=== PATIENT | male | born 1960 | race Caucasian/White ===

== ENCOUNTER → 2023-01-03 | Outpatient (CLI) | payer OTHER, SELFPAY ==
--- NOTE | 2023-01-03 18:21 | CT_ITS ---
PROCEDURE: CT LEFT KNEE WITHOUT CONTRAST REASON FOR EXAM: Male, 62 years old. Preoperative planning for the MakoPlasty Robotic knee surgery. Knee pain. TECHNIQUE: Transaxial CT of the hip, knee and ankle were obtained. Coronal and sagittal reconstruction images of the knee were provided. Individualized dose optimization techniques were used for this CT. COMPARISON: None. FINDINGS: Standard protocol for the preoperative planning for the MakoPlasty robotic knee surgery was performed. Osteopenia. Left total hip arthroplasty in anatomic alignment without complications. Moderate to marked tricompartmental arthrosis of the left knee. Moderate arthrosis of the left tibiotalar joint, subtalar joint and midfoot. CT/Extremity Lower without Contra IMPRESSION: Preoperative MakoPlasty Robotic knee surgical CT evaluation with findings as described above. Electronically Signed: Saw Steele MD at 11:16 EDT ,
== END | disposition home or self-care (01) ==
PROVIDERS: PCP Student in an Organized Health Care Education/Training Program; Visit Provider Orthopaedic Surgery
DX: M17.12 Unilateral primary osteoarthritis, left knee (principal); M21.062 Valgus deformity, not elsewhere classified, left knee
CPT/HCPCS: 73700

== ENCOUNTER → 2023-08-05 | Outpatient (CLI) | payer OTHER, SELFPAY ==
--- NOTE | 2023-08-05 15:28 | CT_ITS ---
CT RIGHT LOWER EXTREMITY WITH 3-D IMAGING CLINICAL INDICATION: RIGHT KNEE FOR AS1 PROTOCOL TECHNIQUE: Axial CT images of the RIGHT lower extremity was performed without IV contrast material. Coronal and sagittal reformats were provided. RADIATION DOSAGE (If Supplied By Facility): CTDIvol = ( 18.13 ) mGy, DLP = ( 1479.78 ) mGycm COMPARISON: No relevant prior comparison study available FINDINGS: Bones: Imaging of the hip joint was obtained. The patient is status post right total hip replacement. There is good alignment. No acute abnormality is seen. Imaging of the knee joint was obtained. There is a marked degree of joint space narrowing involving the medial and lateral compartments of the knee joint with degenerative spur formation of the distal femoral condyles and tibial plateau. Moderate degree of joint space narrowing of the patellofemoral joint with marked degree of a bony spur formation. Subchondral cystic changes are seen in the distal femur and proximal tibia. Soft Tissues: Small to moderate size joint effusion. Imaging of the ankle joint was obtained. There is evidence of prior screw fixation of the medial malleolus. The superficial soft tissues are unremarkable without evidence of edema, hematoma, or foreign body. CT/Extremity Lower without Contra IMPRESSION: Marked degree of osteoarthritis of the hip joint as described with small to moderate size joint effusion. Electronically Signed: Salazar York MD at 16:01 EST ,
== END | disposition home or self-care (01) ==
PROVIDERS: PCP Student in an Organized Health Care Education/Training Program; Referring Provider Orthopaedic Surgery; Visit Provider Orthopaedic Surgery
DX: M17.11 Unilateral primary osteoarthritis, right knee (principal); M25.561 Pain in right knee
CPT/HCPCS: 73700

== ENCOUNTER 2023-09-26 09:41 | Observation (INO) | payer OTHER, SELFPAY ==
[2023-09-13 13:46] LABS: Magnesium 2.1 mg/dL (1.6-2.6)
[2023-09-26] VITALS (14 sets, daily range): BP systolic 99–124; BP diastolic 52–87; PULSE 74–98; RESP 16–18; TEMP 36.1–37.2; O2SAT 95–100; BMI 29.5
[2023-09-26] MEDS: Celecoxib 200 MG Capsule 400 MG PO (06:10)
[2023-09-26] MEDS: Magnesium 1 GM over 15 mins IV (06:10)
[2023-09-26] MEDS: Lactated Ringers 1,000 ML 15 ML IV (06:10)
[2023-09-26 06:48] LABS: Bedside Glucose 112 mg/dL (74-106)
[2023-09-26] MEDS: Cefazolin 2 GM in 0.9% Normal Saline (100mL Bag) 100 ML IV (07:26)
--- NOTE | 2023-09-26 07:30 | KNEE_PTH ---
PATIENT: CYNDEE HAWKINS LOC: MS3 U#:[id number] AGE/SX: 63/M ROOM: VA312 RE09/26/[address]: Dr. Jay Jay Scanlon MD : 1960 BED: 1 DIS: 09/30/2023 SPEC #: [id number] RECD: 09/26/23 13:15 STATUS: ELBERT REDMAN #: [id number] JOSE ROBERTO: 09/26/23 07:[address]: Jay Jay Scanlon DEPT: SURGICAL PATHOLOGY RECD BY: Philomena Renteria ENTERED: 09/26/23 13:44 SP TYPE: TOTAL KNEE OTHR DR: Dr. Gerard Graves, DO Tissues: Knee, NOS Procedures: Decalcification bone/plaque Surgery Specimen Level IV HEADER OPERATION: ERAS, total knee replacement PRE-OP DIAGNOSIS: Right knee grade 4 primary osteoarthritis TISSUE SUBMITTED: Bone and soft tissue of right knee MICROSCOPIC DIAGNOSIS Bone and soft tissue, right knee, total knee replacement/resection: Pieces of bone with degenerative osteoarthritic changes. Fibroadipose tissue, fibroconnective tissue and reactive synovial tissue. SJ:mr 09/29/2023 COMMENT Case has been reviewed in consultation with Dr. Stapleton who concurs with the above diagnosis. IDC:SJ MICROSCOPIC DESCRIPTION Slides are reviewed. GROSS DESCRIPTION Received is one container designated bone and soft tissue right knee. The specimen consists of multiple fragments of ferro-yellow bone measuring in aggregate 11.0 x 13.0 x 4.0 cm. No soft tissue is identified. A number of bony fragments contain articular surfaces consistent with tibial plateau and femoral condyle and displaying prominent osteophyte formation, eburnation and bone erosion. Insurance Writer section is submitted in one cassette after decalcification. TC:5 SJ/mr 09/30/23 CPT: 54350, 02792
[2023-09-26] MEDS: dexAMETHasone 10 MG/ML Vial IV (07:40)
[2023-09-26] MEDS: TXA 1000mg in NS100 100ml (IVPB at Incision) 660 MG IV (07:40)
[2023-09-26] MEDS: JPS (Morphine 10mg/ml) OPERA.SITE (07:48)
[2023-09-26] MEDS: TXA 1000mg in NS100 100ml (IVPB at Closure) 660 MG IV (09:15)
--- NOTE | 2023-09-26 09:46 | OP.PCM_ITS ---
Problems Associated Problem List Diagnoses (1) Arthritis of right knee: Operative Report Date of Procedure: 09/26/23 Preoperative diagnosis: Right knee severe primary osteoarthritis Same Title of procedure : Right total knee replacement, press fit Surgeon: Jay Jay Scanlon MD Production Recorder: Yu Kumar PA-C Anesthesia: Spinal, adductor canal nerve block Anesthesiologist:Dr. Isaacs / SEBASTIÁN Special medications: Ancef 2 gm , tranexamic acid 1 gm IV x2 Tourniquet time: 86 minutes EBL: 50 Fluid in: 1500 Complications: None Indications for surgery: Patient is a [63 ]-year-old [male] with a history of knee arthritis appropriately treated and failed conservative measures and wished to proceed with total knee replacement. Patient was cleared for surgery by the medical doctor and has been evaluated by the anesthesia staff Findings: Intraoperative findings showed severe arthritis of the knee. Patient underwent knee replacement using [employer] triathlon press-fit total knee components. Pressfit Size [6] femur, size [7] tibia, [35 x 10] asymmetric X3 patella, size [7-9mm CS] X3 tibial polyethylene insert, knee was nicely balanced. Patella tracked well. Patient underwent standard wound closure in layers. Vicryl and strata fix sutures utilized. research program assistant, physician news production assistant, was utilized throughout the entire procedure. They were vital in helping with patient positioning, holding of retractors, exposing the tissues adequately for safe completion of the procedure including cutting of the bone, helping registered nurse bone marrow transplant appropriate alignment and sizing of the components, implantation of the components, as well as wound closure, bandage application, and safe patient transfer. Without hand frame surgical elastic knitter, physician news production assistant, surgical time would have been significantly increased, and surgical outcome could have been less optimal. Description of procedure: The patient was taken to the OR, transferred to the OR table. They were given a spinal anesthetic. Ancef was given IV preoperatively. Tranexamic acid was given IV preoperatively. Well-padded tourniquet was applied to the upper thigh of the operative leg. Nonoperative leg had a SHANA hose and SCD on throughout. Operative limb was prepped padded and draped in usual orthopedic sterile fashion for the procedure. We began by injecting the pain relieving solution in the anterior superior aspect of the knee region. The limb was exsanguinated, and the tourniquet was applied to 300 mmHg. Made a midline incision through skin, subcutaneous tissue, bringing down us on the extensor mechanism. Medial parapatellar arthrotomy was carried out. Straw-colored joint fluid was evacuat ed. We raised a sleeve of tissue off the upper medial tibia. Resected some of the infrapatellar fat pad. We remove degenerative medial and lateral meniscus. Removed bone spurs from about the joint. We removed tissue off the anterior aspect of the distal femur. Patella was translated laterally and/or everted as needed throughout the procedure. ACL was resected. PCL was preserved. Collateral ligaments were preserved. Physician placed the retractors and news production assistant held retractors protecting above ligaments throughout the procedure. -1 guides used on the femoral side. Next cutting block was applied to the front of the femur. Appropriate external rotation . We sized off that block and decided on the appropriate size femur. 4-in-1 cutting block was applied to the distal femur and held in place with 2 pins. Production Recorder again held retractors to protect the soft tissues while surgeon performed anterior, posterior, and chamfer cuts. Bony fragments were removed. PCL retractor was placed and collateral ligament protectors placed by the surgeon, held by the assistance. Tibial external alignment guide was utilized under standard technique going down the shaft of the tibia, to the base of the second metatarsal. Appropriate posterior slope was built in. Production Recorder help registered nurse bone marrow transplant alignment. We went just over 2 mm off the deficient side of the tibia. Cutting block was held in place with 3 pins. Again checked the external alignment. Tibial cut carried out with a saw while the news production assistant held retractors protecting the soft tissues about the anterior, medial, lateral, and posterior knee. Bone fragment removed. We then sized off the upper tibia with the help of the news production assistant. We then checked flexion extension gaps finding them to be adequate and equal. Next the distal femoral trial was applied. Tibial tray was allowed to freefloat with a 9 mm insert. Knee was flexed and extended an external alignment guide is utilized. Tibial trial was pinned in place. Drill holes were placed into the distal femoral trial and it was removed. Punch was used on the upper tibial component and that was removed. The sclerotic bone was softened with a sharp pin. Bone spurs removed from the posterior medial and posterior lateral aspect of the femur while the news production assistant lifted up on the distal femur and exposed each compartment. Patella was everted and measured and appropriate resection was carried out while the news production assistant held the guide and patella in good position. Patellar remnant measured to be at or just greater than 14 mm. Patella was sized. Clamp was utilized. 3 drill holes were placed through the clamp held by the news production assistant. Trial patella was placed and removed. Bleeding was controlled at the back of the knee with the bovey. Posterior knee soft tissues were carefully injected with pain relieving solution. Components were checked and open. Knee was thoroughly irrigated by the news production assistant while surgeon fashioned a bone plug that was placed in the femoral canal hole. The bony surfaces cleaned and dried. Tibia, femur, patella press-fit into position. Production Recorder held retractors exposing the bony surfaces of the tibia and femur which were hammered in position. Patella clamped into position. A trial insert applied to the tibia. The final insert was placed on the tibial tray seated down fully. We thoroughly irrigated and debrided the knee. Bleeding controlled with the Bovie. Knee was again thoroughly irrigated. Patella noted to track nicely. Slight medial avulsion of the patellar tendon noted. This was approximately 25% of the width of the overall attachment site of the patellar tendon. This was repaired with #2 FiberWire suture through drill hole previously placed in the bone proximally. More distally very small drill hole placed in the bone for further repair with another FiberWire suture. Full range of motion of the knee noted without stressing the repair site. We repaired the arthrotomy with a combination of #1 Vicryl and #2 strata fix. We did a mid layer of 1 Vicryl and #1 strata fix running. We then did inverted 2-0 vicryl . We then applied Steri-Strips over skin prep. Mepilex dressing applied. SHANA hose and SCDs applied. Patient was awoken from their anesthetic, transferred back to their own bed and recovery room in satisfactory condition. Second dose of IV Tranexamic acid was given while closing wound. Patient was admitted, appropriate IV antibiotic to be utilized as well as medication for DVT prevention. Hopeful discharge in 1-2 days. Patient planning on DC to ECF. Hospitalist service and Physical therapy will be consulted. This note was generated with [employer] software. It may contain incorrect words, spelling, and punctuation that were not noted in checking the note before signing. Postoperative diagnosis:
--- NOTE | 2023-09-26 10:40 | RAD_ITS ---
STUDY: X-RAY - RIGHT KNEE REASON FOR EXAM: Male, 63 years old. Post op -- AP and Lateral xray of operative knee in PACU TECHNIQUE: 2 view(s) of the knee. COMPARISON: None. FINDINGS: Normal visualized distal femur. Normal visualized proximal tibia and fibula. Normal proximal tibiofibular articulation. The patient is status post total knee replacement. There is good alignment. Postoperative soft tissue changes. Healed fracture of the proximal fibula. RAD/Knee 1 or 2 Views IMPRESSION: Status post total knee replacement. There is good alignment. Postoperative soft tissue changes. Electronically Signed: Salazar York MD at 14:35 EDT ,
[2023-09-26] MEDS: Acetaminophen 500 MG Tablet 1000 MG PO ×2 (15:22→21:05)
[2023-09-26] MEDS: Polyethylene Glycol 3350 17 GM PACKET PO (15:22)
[2023-09-26] MEDS: Docusate Sodium 100 MG Capsule PO (15:22)
[2023-09-26] MEDS: Gabapentin 600 MG Tablet PO ×2 (15:23→21:05)
[2023-09-26] MEDS: Lactated Ringers 1,000 ML 125 ML IV (15:24)
[2023-09-26] MEDS: Cefazolin 1 GM/50 ML BAG IV (15:29)
[2023-09-26] MEDS: Sertraline 100 MG Tablet 200 MG PO (15:37)
--- NOTE | 2023-09-26 17:08 | PCM.HOSP.N ---
Hospitalist Note Comes requested by Dr. Scanlon for postoperative medical management Subjective: Patient feeling well still has some pain in his knee. Is concerned about developing constipation and asking for MiraLAX starting tomorrow. Vitals: Temp 37, respirate 18, pulse 74, blood pressure 108/57. Physical exam: Patient is up in a chair eating dinner. No acute distress. Afebrile. No respiratory distress. No conversational dyspnea. Assessment and plan 1. Constipation: Continue with the docusate and MiraLAX 2. Status post right knee replacement. Performed on the . Management per orthopedics. VTE prophylaxis per orthopedics. Patient medically stable for discharge. Patient expressing interest in going to the transitional care unit as his parents, whom he lives with, are unable to take care of him, apparently. Visit Charges Inpatient E&M: 94078 Subs Hosp L1
[2023-09-26] MEDS: Aspirin E.C. 81 MG Tablet PO (19:04)
[2023-09-26] MEDS: Ensure Surgery 237 ML LIQUID PO (19:04)
[2023-09-26] MEDS: Tamsulosin HCl 0.4 MG Capsule 0.8 MG PO (21:04)
[2023-09-26] MEDS: Senna/Docusate Sodium 1 Tablet PO (21:05)
[2023-09-27] MEDS: Lactated Ringers 1,000 ML 125 ML IV (00:07)
[2023-09-27 00:16] VITALS: BP 121/72; PULSE 75; RESP 18; TEMP 36.7; O2SAT 97
[2023-09-27] MEDS: Cefazolin 1 GM/50 ML BAG IV (00:19)
[2023-09-27 00:21] VITALS: BMI 29.5
[2023-09-27 05:40] VITALS: BP 123/75; PULSE 59; RESP 18; TEMP 36.4; O2SAT 98
[2023-09-27 05:46] VITALS: BMI 29.5
[2023-09-27] MEDS: 0.9% Saline Lock 10 ML Syringe IV (05:51)
[2023-09-27] MEDS: Polyethylene Glycol 3350 17 GM PACKET PO (05:51)
[2023-09-27] MEDS: Gabapentin 600 MG Tablet PO ×3 (05:51→20:49)
[2023-09-27] MEDS: Acetaminophen 500 MG Tablet 1000 MG PO ×3 (05:51→20:50)
[2023-09-27 07:45] LABS: Anion Gap 4 (5-15); BUN 13 mg/dL (7-18); Calcium,Total 8.1 mg/dL (8.5-10.1); Chloride 108 mmol/L (98-107); Creatinine, Serum 0.69 mg/dL (0.70-1.30); EST Glomerular Filtration Rate 124 mL/min (>60); Est Glom Filt Rate - Afr Amer 150 mL/min (>60); Estimated Creatinine Clearance 129.54 ml/min; Glucose 104 mg/dL (74-106); Potassium 3.7 mmol/L (3.5-5.1); Sodium Level 139 mmol/L (136-145)
[2023-09-27 07:46] LABS: Hematocrit 36.7 % (40-54); Hemoglobin 12.3 g/dL (13.0-16.5); Mean Corp Hgb Conc 33.5 g/dL (32-36); Mean Corpuscular Hgb 31.9 pg (27.0-32.0); Mean Corpuscular Volume 95.1 fL (80-94); RBC Distribution Width CV 13.1 % (11.6-14.6); RBC Distribution Width SD 44.9 fl (35.1-43.9); Red Blood Count 3.86 M/mm3 (4.6-6.2); White Blood Count 8.2 K/mm3 (4.4-11.0)
[2023-09-27 07:47] LABS: Mean Platelet Vol. 8.9 fl (6.2-12.0); Platelet Count 150 K/mm3 (150-450); Scan Indicated on CBC? Y/N NO
--- NOTE | 2023-09-27 07:56 | PCM.PN.ORT ---
Subjective Subjective Patient sitting up in bed. Patient states he has very minimal pain in his right knee. Patient denies chest pain, shortness of breath, calf pain, nausea or vomiting. Patient is anxious to begin physical therapy and moving to the therapy floor. Objective Data Objective Data Vital Signs: Vital Signs Temp Pulse Resp BP Pulse Ox O2 Del Method O2 Flow Rate 97.5 F L 59 L 18 123/75 H 98 Room Air 4 09/27/23 05:40 09/27/23 05:40 09/27/23 05:40 09/27/23 05:40 09/27/23 05:40 09/27/23 05:40 09/26/23 11:15 Oxygen Flow Rate (L/min) 4 Oxygen Delivery Method Room Air Weight: 96 kg Body Mass Index (BMI) 29.5 Intake & Output: Intake and Output for Last 24 Hours 09/25/23 09/26/23 09/27/23 23:59 23:59 23:59 Intake Total 2482 / 2482 777.08 / 777.08 Output Total 600 / 600 Balance 248 / 2082 177.08 / 177.08 Lab / Micro Data 09/27/23 06:22 09/27/23 06:22 Labs: Laboratory Results - last 24 hr 09/27/23 06:22: WBC 8.2, RBC 3.86 L, Hgb 12.3 L, Hct 36.7 L, MCV 95.1 H, MCH 31.9, MCHC 33.5, RDW Std Deviation 44.9 H, RDW Coeff of Donavon 13.1, Plt Count 150, MPV 8.9, Sodium 139, Potassium 3.7, Chloride 108 H, Carbon Dioxide 27.0, Anion Gap 4 L, BUN 13, Creatinine 0.69 L, Estim Creat Clear Calc 129.54, Est GFR (MDRD) Af Amer 150, Est GFR (MDRD) Non-Af 124, BUN/Creatinine Ratio 19.0, Glucose 104, Calcium 8.1 L Micro: Microbiology 09/13/23 11:50 Swab (Method) Nasal Screen MRSA/MSSA - Final Radiography Diagnostic Testing: Radiology Impression Knee X-Ray 09/26/23 10:40 IMPRESSION: Status post total knee replacement. There is good alignment. Postoperative soft tissue changes. Electronically Signed: Salazar York MD at 14:35 EDT , Physical Exam Narrative Patient sitting up in bed, alert. Patient is in no respiratory distress. Full range of motion the upper extremities without limitations. Exam of the right knee the dressing was clean dry intact. He has minimal motion secondary to pain and stiffness. He has no calf tenderness. Neurovascular is otherwise intact. Const alert and oriented x3 General Appearance: cooperative Eyes PERRL Resp normal respiratory effort Effort and Inspection: able to speak in complete sentences Extremity normal capillary refill Skin no rashes or lesions noted Neuro CN's II-XII intact bilaterally Psych mental status grossly normal and affect normal Assessment & Plan Assessment/Plan (1) Status post total right knee replacement: PLAN: 1. Continue all pain medications as prescribed 2. Aspirin 81 mg 1 p.o. every 12 hours x 30 days for postop DVT prophylaxis 3. Encourage incentive spirometry 4. Patient begin ambulation full weightbearing with walker 5. Continue ice right knee 6. Continue physical therapy today. 7. When cleared by insurance patient can be discharged and admitted to fourth floor rehab
[2023-09-27 08:05] VITALS: BP 121/77; PULSE 66; RESP 16; TEMP 36.6; O2SAT 97
[2023-09-27] MEDS: Multivitamins,Therapeutic Tablet 1 TABLET PO (09:24)
[2023-09-27] MEDS: Ensure Surgery 237 ML LIQUID PO ×3 (09:24→17:38)
[2023-09-27] MEDS: Aspirin E.C. 81 MG Tablet PO ×2 (09:25→17:38)
[2023-09-27] MEDS: Famotidine 20 MG Tablet PO (09:25)
[2023-09-27] MEDS: Magnesium Chloride 64 MG Delay Rel.Tablet 128 MG PO (09:25)
[2023-09-27] MEDS: Sertraline 100 MG Tablet 200 MG PO (09:25)
[2023-09-27] MEDS: Senna/Docusate Sodium 1 Tablet PO ×2 (09:25→20:49)
--- NOTE | 2023-09-27 09:31 | PCM.PN.HOSP ---
Reason for Visit Reason for Visit: Right knee osteoarthritis Subjective Subjective No issues overnight. Patient's vitals are stable. Labs are stable. Patient reports that he feels the plan is going to be for him to go to rehab after discharge and that his sister is helping get that set up for him. Objective Data Objective Data Vital Signs: Vital Signs Temp Pulse Resp BP Pulse Ox O2 Del Method O2 Flow Rate 97.8 F 66 16 121/77 H 97 Room Air 4 09/27/23 08:05 09/27/23 08:05 09/27/23 08:05 09/27/23 08:05 09/27/23 08:05 09/27/23 08:06 09/26/23 11:15 Oxygen Flow Rate (L/min) 4 Oxygen Delivery Method Room Air Weight: 96 kg Body Mass Index (BMI) 29.5 Intake & Output: Intake and Output for Last 24 Hours 09/25/23 09/26/23 09/27/23 23:59 23:59 23:59 Intake Total 2482 / 2482 1164.83 / 1164.83 Output Total 600 / 600 Balance 2482 / 2082 564.83 / 564.83 Lab / Micro Data 09/27/23 06:22 09/27/23 06:22 Labs: Laboratory Results - last 24 hr 09/27/23 06:22: WBC 8.2, RBC 3.86 L, Hgb 12.3 L, Hct 36.7 L, MCV 95.1 H, MCH 31.9, MCHC 33.5, RDW Std Deviation 44.9 H, RDW Coeff of Donavon 13.1, Plt Count 150, MPV 8.9, Sodium 139, Potassium 3.7, Chloride 108 H, Carbon Dioxide 27.0, Anion Gap 4 L, BUN 13, Creatinine 0.69 L, Estim Creat Clear Calc 129.54, Est GFR (MDRD) Af Amer 150, Est GFR (MDRD) Non-Af 124, BUN/Creatinine Ratio 19.0, Glucose 104, Calcium 8.1 L Micro: Microbiology 09/13/23 11:50 Swab (Method) Nasal Screen MRSA/MSSA - Final Radiography Diagnostic Testing: Radiology Impression Knee X-Ray 09/26/23 10:40 IMPRESSION: Status post total knee replacement. There is good alignment. Postoperative soft tissue changes. Electronically Signed: Salazar York MD at 14:35 EDT , Physical Exam Const alert, oriented x3, no apparent distress and well nourished Constitutional Narrative: Overweight, middle-aged, white male, sitting up in a chair at the bedside, watching television, appears comfortable Neuro oriented x3, moves all extremities and no focal motor deficits Speech: speech normal Psych affect normal Psych Narrative: Eye contact is good, patient interacts appropriately Assessment & Plan Assessment/Plan (1) Status post total right knee replacement: (2) Arthritis of right knee: PLAN: Plan Right knee osteoarthritis -Postop day 1 -Management per primary service -Recommend bowel regimen while patient is on pain medication -Weightbearing as tolerated -PT/OT consultation -Patient states he will not be able to go home at discharge and will need rehab Chronic constipation -Continue docusate and scheduled MiraLAX OCD/history of emotional disturbance -Continue home medication -Outpatient follow-up with psychiatry -Patient had recent visit on 08/24/2023 Neck pain -Is following with pain management and had a recent neck injection on September 06 BPH with obstruction -Continue home Flomax DVT prophylaxis -Aspirin 81 mg p.o. twice daily as per -X 30 days Disposition: -Patient is medically cleared for discharge -Will need social work assistance for discharge to rehab if possible I did discuss this with them and they are unclear if there is any available beds or if he will qualify--> they will follow-up more with his sister -We will follow peripherally while he is hospitalized please call with any concerns Charges/Coding Visit Charges Inpatient E&M: 06780 Subs Hosp L1
[2023-09-27 10:34] VITALS: BMI 29.5
--- NOTE | 2023-09-27 11:15 | CASEMGMT ---
Addendum entered by Petty Márquez 09/27/23 11:59: 11:05 Sister in pt room with parents, ORLY BAKER into room to discuss DC plan. Family expressed concern with pt returning to home. Stated pt has 17 steps to basement and parents are not able to assist with ambulation or ADLs. Pt staying on first floor is not an option. Family requested pt stay at [facility] in patient therapy. Discussed pt therapy session today, pt reported he did 10 steps with therapy. Sister stated she has been in contact with [facility], discussing the situation, they were made aware that the RN OLIVIA will speak with therapist and SW regarding facility placement. Spoke with therapist who stated pt did 12 steps today and she will attempt 17 steps tomorrow with pt. Updated SW on patient and family wishes. Discussed with patient and family to see if private pay would be an option if the patient is not approved. They are interested in hearing rates for this. Original Note: Face to Face with pt for initial transition planning/care coordination assessment. ORLY BAKER introduced self and role at [facility], pt voices understanding and consents to assessment. Pt sitting up in chair in no distress. Pt is A&O x4 and answers all questions appropriately at this time. Care providers, pharmacy, and demographics verified/updated. Admitting Dx: Total Knee Replacement PCP: [facility] Specialists: Shady Scanlon; laxmi Gutierrez Preferred Pharmacy: [facility] Insurance: [employer] [facility] Prescription Benefit: yes LNOK: Mirtha Mosher - sister, Lubna & Darrell Mosher - parents Living Arrangements: Pt lives with mom and dad in a 2 story home, pt lives in basement with 17 steps with hand rails. Independent with ADLs prior to surgery. Stated mom makes meals, he assists. Transportation: Pt drives self, family can assist until able to drive again. DME: walker HHC/SNF: Pt unsure if he has had HH, denies SNF. Pt stated he has outpatient therapy in [place]. Pt was hoping he could have therapy at [facility] in patient. ORLY BAKER discussed pt therapy session today and he did very well. Pt asked us to contact sister to discuss DC planning. ORLY BAKER to follow. Advised pt to ask CM if any further question/concerns/needs arise, voices understanding. Pt Goal: [facility] in patient therapy Plan: SIOBHAN Wilson RN CM
--- NOTE | 2023-09-27 12:52 | CASEMGMT ---
Addendum entered by Annamaria Silva 09/27/23 14:14: Social Work SW spoke w/TCU, they will try to get precert. SW let pt's sister know that TCU is going to try to get precert. SW again explained that it is unlikely pt will be approved. SW provided the SNF list to pt's sister w/pt with the private pay costs. Pt's sister states they would likely [facility] private pay if TCU does not get approved. SW will keep her informed as the day goes. MARGUERITE Webb Addendum entered by Annamaria Silva 09/27/23 13:33: Social Work SW did create a list of retirement facilities via [employer] w/quality and resource use data in pt's preferred geographic area. SW included private pay costs in even pt does not get approved by insurance for SNF. SW will provide list to pt's sister when she returns. MARGUERITE Webb Original Note: Social Work SW met w/pt, pt's sister and parents in regard to discharge plan. They would like pt to go somewhere for rehab, would like TCU or [facility] transitional unit. SNF list not needed at this time as pt's sister had called insurance and was told TCU or [facility] swing unit is where they would like pt to go. SW explained that based on pt's therapy he may not be authorized. They may be interested in paying privately if insurance does not cover. SW did tell them the cost of TCU, would need to let them know the cost of other facilities in the community. They would prefer [facility] then [facility]. SW explained will make referral to TCU and go from there. Pt's parents cannot help pt at all at home, they live in a split level home, and it's 17 steps down to where pt stays. Pt's parents cannot get down the steps at all to help pt. Pt's mother is here and in a wheelchair, pt's father has memory issues. SW explained will make referrals and will also get the family a list of private pay SNF cost in event insurance does not approve. SW made referral to TCU, awaiting a response. MARGUERITE Webb
[2023-09-27 14:05] VITALS: BP 133/75; PULSE 90; RESP 16; TEMP 36.6; O2SAT 98
[2023-09-27 14:11] VITALS: BMI 29.5
[2023-09-27 18:21] VITALS: BMI 29.5
[2023-09-27 20:46] VITALS: BP 129/79; PULSE 86; RESP 16; TEMP 37; O2SAT 98
[2023-09-27] MEDS: Tamsulosin HCl 0.4 MG Capsule 0.8 MG PO (20:49)
[2023-09-28 06:30] VITALS: BP 130/82; PULSE 92; RESP 16; TEMP 36.8; O2SAT 98
[2023-09-28] MEDS: Gabapentin 600 MG Tablet PO ×3 (06:33→22:03)
[2023-09-28] MEDS: Acetaminophen 500 MG Tablet 1000 MG PO ×3 (06:33→22:03)
[2023-09-28 07:28] LABS: Hemoglobin 11.8 g/dL (13.0-16.5); Mean Corp Hgb Conc 33.7 g/dL (32-36); Mean Corpuscular Hgb 31.8 pg (27.0-32.0); Mean Corpuscular Volume 94.3 fL (80-94); Mean Platelet Vol. 8.8 fl (6.2-12.0); Platelet Count 145 K/mm3 (150-450); RBC Distribution Width CV 13.2 % (11.6-14.6); RBC Distribution Width SD 45.7 fl (35.1-43.9); Red Blood Count 3.71 M/mm3 (4.6-6.2)
[2023-09-28 07:40] VITALS: BP 117/80; PULSE 98; RESP 14; TEMP 36.6; O2SAT 92
[2023-09-28] MEDS: Multivitamins,Therapeutic Tablet 1 TABLET PO (08:26)
[2023-09-28] MEDS: Magnesium Chloride 64 MG Delay Rel.Tablet 128 MG PO (08:26)
[2023-09-28] MEDS: Aspirin E.C. 81 MG Tablet PO ×2 (08:26→16:30)
[2023-09-28] MEDS: Meloxicam 7.5 MG Tablet PO ×2 (08:26→22:03)
[2023-09-28] MEDS: Ensure Surgery 237 ML LIQUID PO ×3 (08:26→16:30)
[2023-09-28] MEDS: Senna/Docusate Sodium 1 Tablet PO ×2 (08:27→22:03)
[2023-09-28] MEDS: Sertraline 100 MG Tablet 200 MG PO (08:27)
[2023-09-28] MEDS: Famotidine 20 MG Tablet PO (08:27)
[2023-09-28] MEDS: Polyethylene Glycol 3350 17 GM PACKET PO (08:31)
[2023-09-28] MEDS: oxyCODONE 5 MG Tablet PO (11:00)
--- NOTE | 2023-09-28 11:51 | CASEMGMT ---
Social Work Insurance did deny admission for TCU, it can be appealed however. STEPHANIE spoke w/Dr. Scanlon, his PA did call to appeal, the phone call for the appeal will not be until tomorrow at 2:30pm. SW explained will work on private pay placement in the event the denial is upheld, with the plan that if cannot go to TCU under his insurance tomorrow he can go private pay to another facility. SW spoke w/pt's sister, updated her on the above. She states [facility] Private pay is the backup plan. SW explained will make the referral with the hope that if the denial is upheld for TCU he can to go [facility] private pay tomorrow. SW called [facility], spoke w/Angeline, explained the situation above. STEPHANIE [facility], she is to let us know if they can take pt tomorrow private pay if the denial for TCU is upheld. STEPHANIE will continue to follow. MARGUERITE Webb
--- NOTE | 2023-09-28 12:18 | PN.ORTHO_ITS ---
Subjective Subjective Patient sitting up in bed talking with his sister who is at his bedside. Patient reports his pain has been very well-managed. He however is very reluctant to take pain medications as he is concerned about being constipated. Patient reports his pain at this time is a 6. Patient denies chest pain, shortness of breath, calf pain, nausea vomiting. Patient is awaiting transfer to an ECF to continue his therapy. At this time he is awaiting insurance approval. Objective Data Objective Data Vital Signs: Vital Signs Temp Pulse Resp BP Pulse Ox O2 Del Method O2 Flow Rate 98 F 98 14 117/80 92 Room Air 4 09/28/23 07:40 09/28/23 07:40 09/28/23 07:40 09/28/23 07:40 09/28/23 07:40 09/28/23 07:40 09/26/23 11:15 Oxygen Flow Rate (L/min) 4 Oxygen Delivery Method Room Air Weight: 96 kg Body Mass Index (BMI) 29.5 Intake & Output: Intake and Output for Last 24 Hours 09/26/23 09/27/23 09/28/23 23:59 23:59 23:59 Intake Total 2482 / 2482 1164.83 / 1164.83 450 / 450 Output Total 600 / 600 300 / 300 Balance 2482 / 2082 564.83 / 564.83 150 / 150 Lab / Micro Data 09/28/23 07:00 09/27/23 06:22 Labs: Laboratory Results - last 24 hr 09/28/23 07:00: WBC 7.0, RBC 3.71 L, Hgb 11.8 L, Hct 35.0 L, MCV 94.3 H, MCH 31. 8, MCHC 33.7, RDW Std Deviation 45.7 H, RDW Coeff of Donavon 13.2, Plt Count 145 L, MPV 8.8 Micro: Microbiology 09/13/23 11:50 Swab (Method) Nasal Screen MRSA/MSSA - Final Physical Exam Narrative Upon entering the room I found patient sitting up in bed speaking with his sister. Patient is in no obvious respiratory distress, speaking in full sentences. Alert oriented. Patient moving upper extremities without limitations. Exam of the right knee cool to touch not erythematous dressings clean dry intact. No calf tenderness. Neurovascular is otherwise intact. Const alert and oriented x3 General Appearance: cooperative Eyes PERRL Resp normal respiratory effort Effort and Inspection: able to speak in complete sentences Extremity normal capillary refill Skin no rashes or lesions noted Neuro CN's II-XII intact bilaterally Psych mental status grossly normal and affect normal Assessment & Plan Assessment/Plan (1) Status post total right knee replacement: PLAN: 1. Continue all pain medications as prescribed 2. Aspirin 81 mg 1 p.o. every 12 hours x 30 days postop DVT prophylaxis 3. Encourage incentive spirometry 4. Continue weightbearing as tolerated with walker 5. Continue physical therapy 6. Continue ice to knee while in bed or sitting 7. Continue SHANA hose and SCDs 8. Discharge to ECF when approved by insurance anticipate tomorrow
[2023-09-28 14:10] VITALS: BP 126/73; PULSE 95; RESP 18; TEMP 36.7; O2SAT 95
--- NOTE | 2023-09-28 16:04 | NURSING ---
All documentation by occupational health nursing director, Mona Maya, reviewed by nursing resident, Omayra ELYN, RN.
[2023-09-28 21:57] VITALS: BP 125/72; PULSE 86; RESP 18; TEMP 37; O2SAT 95
[2023-09-28] MEDS: Tamsulosin HCl 0.4 MG Capsule 0.8 MG PO (22:03)
[2023-09-29 05:04] VITALS: BP 134/95; PULSE 84; RESP 18; TEMP 36.8; O2SAT 94
[2023-09-29] MEDS: Gabapentin 600 MG Tablet PO ×3 (05:13→22:18)
[2023-09-29] MEDS: Acetaminophen 500 MG Tablet 1000 MG PO ×3 (05:13→22:18)
[2023-09-29 07:23] LABS: Hematocrit 29.7 % (40-54); Hemoglobin 9.9 g/dL (13.0-16.5); Mean Corp Hgb Conc 33.3 g/dL (32-36); Mean Corpuscular Hgb 31.7 pg (27.0-32.0); Mean Corpuscular Volume 95.2 fL (80-94); Mean Platelet Vol. 9.2 fl (6.2-12.0); Platelet Count 136 K/mm3 (150-450); RBC Distribution Width CV 13.2 % (11.6-14.6); RBC Distribution Width SD 46.2 fl (35.1-43.9); Red Blood Count 3.12 M/mm3 (4.6-6.2); White Blood Count 5.4 K/mm3 (4.4-11.0)
--- NOTE | 2023-09-29 07:28 | PCM.PN.ORT ---
Subjective Subjective 63-year-old male is now 3 days following a right total knee replacement. No adverse events overnight. Pain in the right knee has been well-controlled. He has been doing well with physical therapy. He currently denies chest pain shortness of breath dizziness or calf pain he is ready for discharge. Due to social circumstances we are recommending a discharge to shelter for rehabilitation in the perioperative period. The patient was informed that I do have a peer to peer with his insurance company this afternoon at 2:30 PM to attempt to get coverage from his insurance company and approval for discharge to the transitional care unit. He understands that the secondary alternative is discharged to the [facility] home that will be [id number] self-pay. Objective Data Objective Data Patient is alert and oriented x 3 no acute distress at rest breathing easily without respiratory distress inspection of right knee is with intact Mepilex dressing there is 1 small area of dried bloody drainage no current active drainage erythema warmth or signs of infection. Negative Nelsy bilaterally without signs of DVT. Full range of motion bilateral ankles against gravity pedal pulses present equal bilaterally neurovascularly intact. Vital Signs: Vital Signs Temp Pulse Resp BP Pulse Ox O2 Del Method O2 Flow Rate 98.2 F 84 18 134/95 H 94 Room Air 4 09/29/23 05:04 09/29/23 05:04 09/29/23 05:04 09/29/23 05:04 09/29/23 05:04 09/29/23 05:04 09/26/23 11:15 Oxygen Flow Rate (L/min) 4 Oxygen Delivery Method Room Air Weight: 96 kg Body Mass Index (BMI) 29.5 Intake & Output: Intake and Output for Last 24 Hours 09/27/23 09/28/23 09/29/23 23:59 23:59 23:59 Intake Total 1164.83 / 1164.83 450 / 700 625 / 625 Output Total 600 / 600 300 / 300 Balance 564.83 / 564.83 150 / 400 625 / 625 Lab / Micro Data Attestation: I reviewed the patient's lab results. 09/29/23 06:01 09/27/23 06:22 Labs: Laboratory Results - last 24 hr 09/28/23 07:00: WBC 7.0, RBC 3.71 L, Hgb 11.8 L, Hct 35.0 L, MCV 94.3 H, MCH 31.8, MCHC 33.7, RDW Std Deviation 45.7 H, RDW Coeff of Donavon 13.2, Plt Count 145 L, MPV 8.8 09/29/23 06:01: WBC 5.4, RBC 3.12 L, Hgb 9.9 L, Hct 29.7 L, MCV 95.2 H, MCH 31.7, MCHC 33.3, RDW Std Deviation 46.2 H, RDW Coeff of Donavon 13.2, Plt Count 136 L, MPV 9.2 Micro: Microbiology 09/13/23 11:50 Swab (Method) Nasal Screen MRSA/MSSA - Final Assessment & Plan Assessment/Plan (1) Status post total right knee replacement: PLAN: -Status post right total knee arthroplasty postoperative day #3 -Continue oxycodone and Tylenol for pain control -Continue PT/OT weightbearing as tolerated right lower extremity with a walker -DVT prophylaxis bilateral teds SCDs and aspirin 81 mg twice daily x 4 weeks postoperative -Drop in hemoglobin hematocrit currently asymptomatic without indication for transfusion likely combination of hemodilution and blood loss anemia -Encourage incentive spirometry -Continue postoperative medical management per hospitalist -Continue discharge planning with case management possible discharge to transitional care unit versus [facility] pending peer to peer review by myself this afternoon at 2:30 PM -Orthopedically stable okay for discharge when cleared medically having adequate pain control and doing well with physical therapy plan to follow-up in the office 2 weeks postoperative
[2023-09-29 07:54] VITALS: BP 109/75; PULSE 85; RESP 16; TEMP 36.7; O2SAT 94
[2023-09-29] MEDS: Multivitamins,Therapeutic Tablet 1 TABLET PO (08:07)
[2023-09-29] MEDS: Aspirin E.C. 81 MG Tablet PO ×2 (08:07→17:09)
[2023-09-29] MEDS: Magnesium Chloride 64 MG Delay Rel.Tablet 128 MG PO (09:40)
[2023-09-29] MEDS: Meloxicam 7.5 MG Tablet PO ×2 (09:41→22:18)
[2023-09-29] MEDS: Sertraline 100 MG Tablet 200 MG PO (09:41)
[2023-09-29] MEDS: Senna/Docusate Sodium 1 Tablet PO ×2 (09:41→22:18)
[2023-09-29] MEDS: Famotidine 20 MG Tablet PO (09:41)
--- NOTE | 2023-09-29 10:43 | PCM.TXEXTCAR ---
Diet Diet Order/Speech Therapy: 09/26/23 11:27 Diet: Regular - General Is pt able to select menu?: Yes Routine Orders/Code Status Suppository Frequency: Daily PRN O2 Frequency: PRN Keep PO Greater than or Equal to (%): 89 Routine Lab Work: CBC (1 week) and BMP (1 week) Code Status: Full Code Wound(s) RIGHT KNEE: Wound Type: Surgical Incision Suggestions for Active Care Change Position every (hours): 2 Therapies Weight Bearing: Weight bearing as tolerated Extremity Affected:: Right Lower Physical Therapy: Eval and Treat Occupational Therapy: Eval and Treat Problem/Diagnosis (1) Status post total right knee replacement: Status: Acute Code(s): Z96.651 - Presence of right artificial knee joint Allergies/Procedures Done in Hospital Allergies No Known Allergies Allergy (Verified 09/26/23 05:54) Procedures: None Type of Care/Length of Stay Estimated LOS: Convalescent Care Less Than 30 days Type of Care Needed: Skilled Rehab Potential: Good Prognosis: Good Additional Orders/Day of Discharge Day of Discharge: 09/29/23 Dietary and Speech Recommendations Dietitian Recommendations/Changes: Continue Regular diet and 237 mL ensure surgery 3 times per day w/ medpass as ordered. Consult RD as needed if dietary/nutrition issues arise. Follow Up Care Please follow up with your Primary Care Physician in: 1 month Please Follow Up With: Jay Jay Scanlon MD When: 2 weeks Discharge Plan Admission Admit Date/Time: 09/26/23 09:41 Attending Provider: Jay Jay Scanlon Primary Care Provider: Gerard Graves Consulting Providers: Denilson Jara; Carri Swain Discharge Orders/Prescriptions Prescriptions: New aspirin 81 mg Tablet,Delayed Release (Dr/Ec) 81 mg PO BIDCM Qty: 0 0RF docusate sodium 100 mg Capsule 100 mg PO DAILY PRN (Reason: constipation) Qty: 0 0RF acetaminophen 500 mg Tablet 1,000 mg PO Q8 Qty: 0 0RF meloxicam 7.5 mg Tablet 7.5 mg PO BID Qty: 0 0RF famotidine 20 mg Tablet 20 mg PO DAILY Qty: 0 0RF oxycodone 5 mg Tablet 5 - 10 mg PO Q4H PRN PRN (Reason: Pain Score 4-10) 7 Days Qty: 56 0RF Continued fluorouracil 5 % cream 1 applic topical DAILY Patient Comments: APPLY TO FACE, SCALP, AND EARS ONCE DAILY FOR UP TO 2 WEEKS -WASH THE HANDS AFTER EACH APPLICATION multivitamin Tablet 1 tab PO DAILY hydroxyzine HCl 10 mg tablet 10 mg PO TID PRN (Reason: anxiety) Qty: 90 1RF sennosides-docusate sodium [Senexon-S] 8.6-50 mg tablet 1 tab-cap PO BID magnesium 200 mg tablet 200 mg PO DAILY tamsulosin 0.4 mg capsule 0.8 mg PO QHS sertraline 100 mg tablet 200 mg PO QHS gabapentin 300 mg capsule 600 mg PO TID polyethylene glycol 3350 17 gram/dose powder 17 g PO DAILY PRN (Reason: constipation) Discontinued naproxen [EC-Naproxen] 500 mg tablet,delayed release (DR/EC) 500 mg PO BID Patient Comments: TAKE 1 TABLET BY MOUTH TWICE A DAY acetaminophen [Tylenol Extra Strength] 500 mg tablet 1,000 mg PO BID PRN (Reason: pain) aspirin 81 mg tablet,delayed release (DR/EC) 81 mg PO BID Hold Instructions: for surgery No Action docusate sodium 100 mg capsule 100 mg PO DAILY PRN (Reason: constipation) Referrals / Follow Up: Gerard Graves DO [Primary Care Provider] - Disposition Disposition (needs filled in before D/C Order can be placed): Penitentiary Facility
--- NOTE | 2023-09-29 15:05 | CASEMGMT ---
Discharge Planning Patient has lost insurance appeal. SW updated. Richa Garcia, Discharge Planning Asst.
[2023-09-29 15:33] VITALS: BP 126/73; PULSE 95; RESP 16; TEMP 37.2; O2SAT 95
--- NOTE | 2023-09-29 16:44 | CASEMGMT ---
Discharge Planning Referral sent via [facility] to [facility] and Ericka Ramos. Richa Garcia, Discharge Planning Asst.
--- NOTE | 2023-09-29 16:55 | CASEMGMT ---
Social Work -discharge planning Collaboration with discharge manager planning today, regarding placement at [facility]. Care management received phone call orthopedic office that peer to peer call ended in denial for [facility] facility. Plan will now be to privately pay at the nursing facility. Per discharge manager planning [facility] has expressed their no male beds today. There could be some in the near future but nothing today. Additionally the [facility] is not in network with [employer], so will need to check and see if patient has at [id number] benefits for outpatient therapy. Spoke with patient's sister Mirtha who has been at the hospital with patient throughout the day. Updated Mirtha. New list from [facility] was generated specific to [employer] facilities with [employer]. Discussed patient going to the [facility] if a bed became available, without any type of therapy, if there is indeed no [id number] benefits versus going to facility who is in network with [employer]. Discussed patient going home versus continue with plan for nursing facility. At this time in light of the patient's parents ability to help with patient's care it is thought that continuing with nursing facility would be the safest at least for a couple of weeks. Discussed that will need to make referrals to additional facilities, and cannot guarantee when the [facility] will have a bed available. From the newest provided the [facility] and [facility] will both chosen to look into. This junior technical writer reviewed approximate and self-pay prices. Let Mirtha know that social work will be following up again on September 30, 2003 to review outcome of new referrals. Supportive listening emotional support provided to the patient sister this day. Called [facility] and spoke with Steph in the clinical nurse department. Provided my written update about patient's discharge planning changes. Steph will update the provider. This junior technical writer sent a backline to Dr. Swain, consulting hospitalist, of update as well. Nursing made aware. Plan: nursing facility private pay, anticipating outpatient therapy. Referrals pending at [facility] and [facility]. [facility] would remain first choice if a bed became available. -MARGUERITE Ortega, CONCESSION ATTENDANT *This note was generated with Birdbackation software. It may contain incorrect words, spelling, and punctuation that were not noted in review of the chart prior to signing*
[2023-09-29 21:47] VITALS: BP 107/77; PULSE 82; RESP 16; TEMP 36.6; O2SAT 95
[2023-09-29] MEDS: Tamsulosin HCl 0.4 MG Capsule 0.8 MG PO (22:17)
[2023-09-30 03:48] VITALS: BP 139/79; PULSE 90; RESP 18; TEMP 36.8; O2SAT 96
[2023-09-30] MEDS: Gabapentin 600 MG Tablet PO ×2 (06:11→14:16)
[2023-09-30] MEDS: Acetaminophen 500 MG Tablet 1000 MG PO ×2 (06:11→14:16)
[2023-09-30 07:42] VITALS: BP 116/71; PULSE 82; RESP 20; TEMP 36.6; O2SAT 94
[2023-09-30] MEDS: Aspirin E.C. 81 MG Tablet PO (08:59)
[2023-09-30] MEDS: Multivitamins,Therapeutic Tablet 1 TABLET PO (09:00)
[2023-09-30] MEDS: Meloxicam 7.5 MG Tablet PO (09:00)
[2023-09-30] MEDS: Magnesium Chloride 64 MG Delay Rel.Tablet 128 MG PO (09:00)
[2023-09-30] MEDS: Famotidine 20 MG Tablet PO (09:00)
[2023-09-30] MEDS: Senna/Docusate Sodium 1 Tablet PO (09:02)
[2023-09-30] MEDS: Sertraline 100 MG Tablet 200 MG PO (10:41)
--- NOTE | 2023-09-30 11:24 | CASEMGMT ---
Social Work STEPHANIE spoke w/Leela at [facility] today, they can take pt, cost is $215/day, they reached out to insurance and was told that they can bill insurance for outpt therapies. STEPHANIE spoke w/pt's sister Mirtha several times today. STEPHANIE relayed the above information to her. She states she called insurance and was told that SNF could not bill for therapy, that it would also be private pay, and was told they will likely need to pay for supplies as well. Mirtha is asking the total per day, how much more it would be than $215/day. She states at this point she is considering just taking pt home and asked when she can come pick him up. STEPHANIE advised her to call Leela at [facility] directly, to find out the cost. Pt's sister called back a short time later. She states spoke w/her parents. They have decided they just want to take pt home, will manage at home. She asked when she can mixing picker tender pt. SW explained will reach out to the doctor as will need new discharge instructions, will let her know once everything is completed. STEPHANIE called [facility], Mirtha will reach out to Yu to complete the discharge instructions for homegoing. STEPHANIE will continue to follow. MARGUERITE Webb
--- NOTE | 2023-09-30 12:07 | DS.PCM_ITS ---
Providers Date of Admission: 09/26/23 Primary Care Physician: Dr. Gerard Graves DO Consultations 09/26/23 16:34 Consult: Hospitalist Routine Consulting Provider: [facility] Reason for Consult: post op medical management EMERGENT Consult: No MD Notified: No Date Notified: 09/26/23 Time Notified: 16:34 09/26/23 16:51 Consult: Hospitalist Routine Consulting Provider: Denilson Jara Reason for Consult: MEDICAL MANAGEMENT EMERGENT Consult: No MD Notified: Yes Date Notified: 09/26/23 Time Notified: 16:51 Method of Notification: Text Reason For Visit: Total Knee Replacement Diagnosis Discharge Diagnosis (1) Status post total right knee replacement: Status: Acute Code(s): Z96.651 - Presence of right artificial knee joint Medications at Discharge Home Medications docusate sodium 100 mg capsule 100 mg PO DAILY PRN constipation 12/09/22 fluorouracil 5 % topical cream 1 applic topical DAILY 12/09/22 multivitamin 1 tab PO DAILY 12/09/22 hydroxyzine HCl 10 mg tablet 10 mg PO TID PRN anxiety #90 tabs 08/24/23 magnesium 200 mg tablet 200 mg PO DAILY 09/02/23 sennosides 8.6 mg-docusate sodium 50 mg tablet (Senexon-S) 1 tab-cap PO BID co nstipation 09/02/23 tamsulosin 0.4 mg capsule 0.8 mg PO QHS 09/02/23 gabapentin 300 mg capsule 600 mg PO TID 09/06/23 sertraline 100 mg tablet 200 mg PO QHS 09/06/23 polyethylene glycol 3350 17 gram/dose oral powder 17 g PO DAILY PRN constipation 09/26/23 acetaminophen 500 mg tablet 1,000 mg (2 x 500 mg) PO Q8 #0 tabs 09/29/23 aspirin 81 mg tablet,delayed release 81 mg PO BIDCM #0 tabs 09/29/23 docusate sodium 100 mg capsule 100 mg PO DAILY PRN constipation #0 caps 09/29/23 famotidine 20 mg tablet 20 mg PO DAILY #0 tabs 09/29/23 meloxicam 7.5 mg tablet 7.5 mg PO BID #0 tabs 09/29/23 oxycodone 5 mg tablet 5 - 10 mg (1 - 2 x 5 mg) PO Q4H PRN PRN Pain Score 4-10 7 days #56 tabs 09/29/23 Hospital Course Operations total knee replacement Procedures None Summary of Care Provided Hospital Course: Patient is a 63-year-old male status post right total knee arthroplasty on elective basis with Dr. Scanlon on 09/27/2023. Surgery was without complications patient has been performing with physical therapy well postoperative course to be expected. Lab work is stabilized. Again no postoperative concerns or complications. He has been cleared orthopedically and medically to be discharged home he will be in the care of his parents and sister. He will follow-up in 2 weeks in our office for his postoperative appointment. He will need to schedule physical therapy on an outpatient basis. This can begin on 10/03/2023. Physical Exam Narrative Patient resting comfortably in bedside chair. No signs of acute distress Satting well on room air Limb is warm to touch, Sensation intact throughout entire lower extremity, including saphenous, sural, superficial and deep peroneal, and tibial distribution. DP/PT pulses bounding. Dorsi and plantarflexion strength 5/5 Dressing clear dry intact Calf nontender to palpation, no erythema, no edema. Negative Homans Weight / BMI Weight Weight: 96 kg Body Mass Index (BMI) 29.5 ABG / Lab / Microbiology Data 09/29/23 09:10 09/27/23 06:22 Microbiology: Microbiology 09/13/23 11:50 Swab (Method) Nasal Screen MRSA/MSSA - Final D/C Instructions Discharge Diet: No restrictions Weight Bearing Status: Weight bearing as tolerated Keep extremity elevated above heart level: Operative Extremity Call your doctor if your incision/area has: Continuous Slow Oozing, Sudden Increased Bleeding, Increased Pain/ Swelling, Increased Redness, Foul Smelling Discharge and Swelling at the incision site Call your doctor if you observe: Fever of 101 or Higher, Inability to have a bowel movement, Shortness of breath, Dizziness, Swelling in the ankles, Chest pain, Increased palpitations (irregular heartbeat) and Calf discomfort Cleanse incision/area with: Soap & Water and Keep Dressing Clean & Dry Please Follow Up With: Jay Jay Scanlon MD When: In 2 weeks as previously scheduled with [facility] orthopedics. Meaningful Use Info Meaningful Use Meaningful Use Diagnoses (Choose all that apply): None applicable Ischemic Stroke Statin Dosing Therapy Reference: STATIN DOSE THERAPY REFERENCE: * Patients > 75 years receive moderate or high dose statin therapy. * Patients 75 years or YOUNGER should receive HIGH intensity statin dose unless contraindicated. You will be required to document reason for non-treatment if statin daily dose does not meet guidelines. HIGH DOSE STATIN THERAPY DAILY Atorvastatin > than or = to 40 mg Rosuvastatin > than or = to 20 mg Amlodipine + Atorvastatin > than or = to 2.5/40 mg Ezetimibe + Simvastatin 10/80 mg Simvastatin 80mg Discharge Plan Admission Admit Date/Time: 09/26/23 09:41 Attending Provider: Jay Jay Scanlon Primary Care Provider: Gerard Graves Consulting Providers: Denilson Jara; Carri Swain Discharge Orders/Prescriptions Prescriptions: New aspirin 81 mg Tablet,Delayed Release (Dr/Ec) 81 mg PO BIDCM Qty: 0 0RF docusate sodium 100 mg Capsule 100 mg PO DAILY PRN (Reason: constipation) Qty: 0 0RF acetaminophen 500 mg Tablet 1,000 mg PO Q8 Qty: 0 0RF meloxicam 7.5 mg Tablet 7.5 mg PO BID Qty: 0 0RF famotidine 20 mg Tablet 20 mg PO DAILY Qty: 0 0RF oxycodone 5 mg Tablet 5 - 10 mg PO Q4H PRN PRN (Reason: Pain Score 4-10) 7 Days Qty: 56 0RF Continued fluorouracil 5 % cream 1 applic topical DAILY Patient Comments: APPLY TO FACE, SCALP, AND EARS ONCE DAILY FOR UP TO 2 WEEKS -WASH THE HANDS AFTER EACH APPLICATION multivitamin Tablet 1 tab PO DAILY hydroxyzine HCl 10 mg tablet 10 mg PO TID PRN (Reason: anxiety) Qty: 90 1RF sennosides-docusate sodium [Senexon-S] 8.6-50 mg tablet 1 tab-cap PO BID magnesium 200 mg tablet 200 mg PO DAILY tamsulosin 0.4 mg capsule 0.8 mg PO QHS sertraline 100 mg tablet 200 mg PO QHS gabapentin 300 mg capsule 600 mg PO TID polyethylene glycol 3350 17 gram/dose powder 17 g PO DAILY PRN (Reason: constipation) Discontinued naproxen [EC-Naproxen] 500 mg tablet,delayed release (DR/EC) 500 mg PO BID Patient Comments: TAKE 1 TABLET BY MOUTH TWICE A DAY acetaminophen [Tylenol Extra Strength] 500 mg tablet 1,000 mg PO BID PRN (Reason: pain) aspirin 81 mg tablet,delayed release (DR/EC) 81 mg PO BID Hold Instructions: for surgery No Action docusate sodium 100 mg capsule 100 mg PO DAILY PRN (Reason: constipation) Referrals / Follow Up: Gerard Graves DO [Primary Care Provider] - Disposition Disposition (needs filled in before D/C Order can be placed): Home, Self Care
--- NOTE | 2023-09-30 12:17 | PHA.DC.MR.R ---
Pharmacy [place] Med Reconciliation Pharmacy Service has performed discharge medication reconciliation for this patient. The patient's discharge medication list was reviewed for discrepancies and discrepancies were resolved. Medications at Discharge Home Medications docusate sodium 100 mg capsule 100 mg PO DAILY PRN constipation 12/09/22 fluorouracil 5 % topical cream 1 applic topical DAILY 12/09/22 multivitamin 1 tab PO DAILY 12/09/22 hydroxyzine HCl 10 mg tablet 10 mg PO TID PRN anxiety #90 tabs 08/24/23 magnesium 200 mg tablet 200 mg PO DAILY 09/02/23 sennosides 8.6 mg-docusate sodium 50 mg tablet (Senexon-S) 1 tab-cap PO BID constipation 09/02/23 tamsulosin 0.4 mg capsule 0.8 mg PO QHS 09/02/23 gabapentin 300 mg capsule 600 mg PO TID 09/06/23 sertraline 100 mg tablet 200 mg PO QHS 09/06/23 polyethylene glycol 3350 17 gram/dose oral powder 17 g PO DAILY PRN constipation 09/26/23 acetaminophen 500 mg tablet 1,000 mg (2 x 500 mg) PO Q8 #0 tabs 09/29/23 aspirin 81 mg tablet,delayed release 81 mg PO BIDCM #0 tabs 09/29/23 docusate sodium 100 mg capsule 100 mg PO DAILY PRN constipation #0 caps 09/29/23 famotidine 20 mg tablet 20 mg PO DAILY #0 tabs 09/29/23 meloxicam 7.5 mg tablet 7.5 mg PO BID #0 tabs 09/29/23 oxycodone 5 mg tablet 5 - 10 mg (1 - 2 x 5 mg) PO Q4H PRN PRN Pain Score 4-10 7 days #56 tabs 09/29/23
--- NOTE | 2023-09-30 12:41 | CASEMGMT ---
Social Work SW spoke w/Mindy w/[facility], she discharged pt. SW called pt's sister to let her know, she will be here later to pick up worker pt. STEPHANIE called [facility] to let them know pt is now going home, thanked them for their help. MARGUERITE Webb
--- NOTE | 2023-09-30 12:45 | CASEMGMT ---
ORLY BAKER NOTE: Pt being discharged home and per STEPHANIE Yin, pt to have OP therapy. Call placed to pt's sister, Mirtha, and she verifies she wishes for pt to go to OP therapy. She states she has already scheduled pt for OP therapy @ [facility] for 10/03. She states they were provided w/OP script by [facility], @ the office visit. She will transport pt to therapy. She states she will be able to take pt to therapy and she also plans to take pt home today from the hospital. She denies having other discharge planning needs or concerns. Rashid CARDOZA RN CM
[2023-09-30 14:20] VITALS: BP 123/77; PULSE 81; RESP 16; TEMP 36.6; O2SAT 99
--- NOTE | 2023-09-30 15:12 | NURSING ---
I Nessa Reddy MSN, RN [facility] acute care nursing assistant agreeds with all documentation from MARITZA Santos
== END 2023-09-30 14:58 | disposition home or self-care (01) | DRG 470 ==
LOC: SDC 13:34 → MS3 09-27 06:36
PROVIDERS: Anesthesiology; Internal Medicine; Admitting Provider Orthopaedic Surgery; PCP Student in an Organized Health Care Education/Training Program; Referring Provider Student in an Organized Health Care Education/Training Program; Visit Provider Orthopaedic Surgery
PROC: (CPT 27447; principal; 2023-09-26 07:05)
DX: M17.11 Unilateral primary osteoarthritis, right knee (principal); N13.8 Other obstructive and reflux uropathy; K59.09 Other constipation; M54.2 Cervicalgia; N40.1 Benign prostatic hyperplasia with lower urinary tract symptoms; F42.9 Obsessive-compulsive disorder, unspecified; Z79.82 Long term (current) use of aspirin; Z79.899 Other long term (current) drug therapy; Z96.652 Presence of left artificial knee joint; Z96.643 Presence of artificial hip joint, bilateral
CPT/HCPCS: 27447; 64447; 36415; 73560; 80048; 82962; 83735; 85018; 85027; 87081; 88305; 88311; 94668; 96361; 96365; 96366; 97110; 97162; 97166; 97530; 97533; 97535; 97802; 99221; C1776; J7120; A4216; G0378; J2405; J3475

== ENCOUNTER 2024-11-30 05:22 | Day surgery (SDC) | payer OTHER, SELFPAY ==
--- NOTE | 2024-11-29 14:32 | PAT.ANESEVAL ---
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 When Was Last Pacemaker Check QUESTION #4 FULL TEXT: You/Your Family Experience fever (hyperthermia) with Anesthesia Last Oral Intake Last Oral intake: Last Oral Intake NPO since Meds taken in AM with sips of water? Meds patient instructed to take am of surgery PONV PONV - aeronautical design engineer: PONV - aeronautical design engineer Female No 11/29/24 10:25 HX of Motion Sickness No 11/29/24 10:25 HX of N/V After Surgery No 11/29/24 10:25 Non-Smoker Yes 11/29/24 10:25 Duration of Surgery greater No 11/29/24 10:25 than 60 minutes Number of Risk Factors 1 11/29/24 10:25 PONV Score Low Risk 11/29/24 10:25 Height & Weight Height & Weight: Anesthesia: Height & Weight Height 5 ft 11 in 10/23/24 10:08 Respiratory Assessment Respiratory Assessment - aeronautical design engineer: Respiratory Tract Infection Hx - aeronautical design engineer Hx Respiratory Tract Infection No 11/29/24 10:25 STOP Sleep Apnea STOP Sleep Apnea - aeronautical design engineer: STOP Sleep Apnea - aeronautical design engineer Hx Hypertension No 11/29/24 10:25 Hx Sleep Apnea No 11/29/24 10:25 CPAP No 11/29/24 10:25 BIPAP No 11/29/24 10:25 Do you snore loudly (louder No 11/29/24 10:25 than talking or can be heard Do you often feel tired/ No 11/29/24 10:25 fatigued/ sleepy during daytime? Has anyone observed you stop No 11/29/24 10:25 breathing during sleep? STOP Results Negative 11/29/24 10:25 QUESTION #5 FULL TEXT : Do you snore loudly (louder than talking or can be heard through closed doors)? 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 Specify any problems Hx of Preganancy in last 3 N/A 11/29/24 10:25 Months Nurse Filling Out Transfusion [facility] 11/29/24 10:25 & Questions: Date: 11/29/24 11/29/24 10:25 Time: 10:11/29/24 10:25 Patient unable to answer at this time (ie. confused, unrespo /Reproduction History /Reproductive History - aeronautical design engineer: /Reproductive Hx- aeronautical design engineer Hx Now No 11/29/24 10:25 Gestational Age (in weeks): EDC: Hx Hx Para Hx Section SAB No 11/29/24 10:25 [facility] Medical History (Updated 11/29/24 @ 10:34 by Tiara Carrillo) Autism Cancer History of Mohs micrographic surgery for skin cancer (11/26/24) Chronic constipation Wears hearing aid Wears glasses Autistic behavior Anxiety Prostate disease Back pain OCD (obsessive compulsive disorder) Non-smoker History of stress test Intellectual disability Obsessive compulsive disorder Hearing problem History of emotional problems Bone fracture Arthritis Home Medications ?Medication ?Instructions ?Recorded ?Last Taken ?Type acetaminophen 500 mg tablet 1,000 mg (2 x 500 mg) PO Q8 #0 tabs 09/29/23 Unknown Rx Held on 11/29/24. Instructions: DIFFICULTLY SWALLOWING bupropion HCl 300 mg 24 hr tablet, 300 mg PO QAM 10/23/24 Unknown History extended release gabapentin 300 mg capsule 300 mg PO TID 10/23/24 Unknown History Held on 11/29/24. Instructions: DIFFICULTLY SWALLOWING meloxicam 15 mg tablet 15 mg PO QDAY 10/23/24 Unknown History Held on 11/29/24. Instructions: DIFFICULTLY SWALLOWING pantoprazole 40 mg tablet,delayed 40 mg PO .before meals 10/23/24 Unknown History release Held on 11/29/24. Instructions: DIFFICULTLY SWALLOWING amitriptyline 25 mg tablet 25 mg PO QHS 11/29/24 Unknown History doxycycline monohydrate 100 mg 100 mg PO BID 11/29/24 Unknown History tablet sertraline 100 mg tablet 200 mg PO DAILY 11/29/24 Unknown History Allergy/AdvReac Type Severity Reaction Status Date / Time No Known Allergies Allergy Verified 11/29/24 10:21 Family History Other Arthritis Bowel disease Colon cancer Diabetes Heart disease High cholesterol Hypertension Osteoporosis Surgical History History of ankle surgery History of tonsillectomy History of colonoscopy History of left knee replacement History of total left hip replacement History of total right hip replacement History of nasal surgery Social History Smoking Status: Never smoker alcohol intake: never substance use type: does not use what type of physical activity do you participate in: walking Audit: Pertinent Findings Pertinent Findings EKG Perinent findings: February 16, 2023. Sinus rhythm. Incomplete right bundle branch block. Stress test pertinent findings: February 25, 2023. Negative for ischemia. Ejection fraction of 69%. Recommendation Anesthesia Recommendation Anesthesia recommendation: OPTIMIZED for anesthesia
[2024-11-30] VITALS (16 sets, daily range): BP systolic 98–147; BP diastolic 60–96; PULSE 74–96; RESP 14–20; TEMP 2.2–36.8; O2SAT 88–100; BMI 28.9
--- OUTSIDE RECORDS SUMMARY | 2024-11-30 05:25 | XMS RPT_ITS | CCD ---
Author Organization [facility] Care Team Providers Care Underpresser Hand Name Role Phone PAUL VALDO GE Unavailable Unavail able PAUL VALDOBRADY HARTMAN Unavailable Unavail able GARY PIERCE ANNA Primary Care Physician [phone] Admitting Unavailable JAY JAY LI DR Primary Care Unavailable JAY JAY LI DR Attending Unavailable JAIME ROACH DO Consulting Unavailable PROVIDER, UNKNOWN Consulting Unavailable JAY JAY LI DR Primary Care Unavailable JAY JAY LI DR Attending Unavailable JAIME ROACH DO Consulting Unavailable JAY JAY LI DR Admitting Unavailable PROVIDER, UNKNOWN Consulting Unavailable ANNA VEGA DO Attending Unavailable HALKO DO, ANNA Primary Care Unavailable LEE VALADEZ, DR GINA Glass Attending Elaine VEGA DO, ANNA Primary Care Unavailable KEREN GARCIA MD Attending Unavailable HALKO DO, ANNA Primary Care Unavailable HALKO DO, ANNA Attending Unavailable HALKO DO, ANNA Primary Care Unavailable JAY JAY LI MD Attending Unavailable HALKO DO, ANNA Primary Care Unavailable HALKO DO, ANNA Attending Unavailable HALKO DO, ANNA Primary Care Unavailable HALKO DO, ANNA Attending Unavailable HALKO DO, ANNA Primary Care Unavailable HALKO DO, ANNA Attending Unavailable HALKO DO, ANNA Primary Care Unavailable PETAR ABRAMS Attending Unavailable HALKO DO, ANNA Primary Care Unavailable HALKO DO, ANNA Attending Unavailable HALKO DO, ANNA Primary Care Unavailable Halko, Anna Referring Unavailable Omayra Lyle Attending Unavailable Halko, Anna Primary Care Unavailable Paul Cárdenas Attending Unavailable Halko, Anna Primary Care Unavailable Paul Cárdenas Attending Unavailable Halko, Anna Primary Care Unavailable Prashanth Rodriguez Attending Unavailable Halko, Anna Primary Care Unavailable Paul Cárdenas Attending Unavailable Halko, Anna Primary Care Unavailable Halko, Anna Primary Care Unavailable Paul Cárdenas Attending Unavailable HALKO DO, ANNA Primary Care Unavailable HALKO DO, ANNA Attending Unavailable HALKO DO, ANNA Primary Care Unavailable HALKO DO, ANNA Attending Unavailable HALKO DO, ANNA Primary Care Unavailable HALKO DO, ANNA Attending Unavailable HALKO DO, ANNA Primary Care Unavailable BENJAMIN FITTER WELDER, FELIZ Attending Unavailable HALKO DO, ANNA Attending Unavailable HALKO DO, ANNA Primary Care Unavailable HALKO DO, ANNA Attending Unavailable HALKO DO, ANNA Primary Care Unavailable Medications Current Medications Medication Drug Class(es) Dates Sig (Normalized) Sig (Original) acetaminophen 500 mg oral capsule (11 sources) Start: 09-06-2024 take 2 capsules by mouth every six hours acetaminophen 500 mg oral capsule See Instructions, 2 cap(s) Oral q6hr, 0 Refill(s) Start Date: 09/06/24 Status: Ordered Repeat number: 1 Start: 05-07-2022 End: 07-05-2023 acetaminophen 500 mg oral ta blet Dose : 1,000 mg = 2 tab(s), Oral, q8h, PRN pain, X 30 day(s), # 180 tab(s), 5 Refill(s), 07/05/23 5:15:00 PM EST, Pharmacy: [facility]/pharmacy #[id number], 178, cm, 01/06/23 16:19:00 EDT, Height, kg, 01/06/23 16:19:00 EDT, Dosing Weight Start Date: 01/06/23 Stop Date: 07/05/23 Status: Ordered Start: 08-06-2020 take 1 tablet by jonah th every eight hours acetaminophen 650 mg oral tablet, extended release See Instructions, tab(s) mg Oral q8h, 0 Refill(s) Start Date: 08/06/20 Status: Ordered Start: 08-06-2020 take 1 tablet by jonah th every eight hours acetaminophen 650 mg oral tablet, extended release See Instructions, tab(s) mg Oral q8h, 0 Refill(s) Start Date: 08/06/20 Status: Ordered Start: 01-23-2014 take 500 mg by mouth every six hours as needed Acetaminophen Active 500 MG PO EVERY 6 HOURS NEEDED January 23, 2014 2:07pm acetaminophen 300 mg / HYDROcodone bitartrate 5 mg oral tablet (1 source) Opioid Agonist Start: 01-23-2014 take 1 tablet by mouth every six hours as needed Hydrocodone-Acetaminophen (Vicodin 5-300 Mg Tablet) 1 EACH tablet Active 1 - 2 TABLET PO EVERY 6 HOURS NEEDED January 23, 2014 2:07pm amitriptyline hydrochloride 25 mg oral tablet (2 sources) Tricyclic Antidepressant Start: 11-02-2024 amitriptyline 25 mg oral tablet Dose : 25 mg = 1 tab(s), Oral, qHS, # 30 tab(s), 1 Refill(s), [id number] 182.5, cm, 11/02/24 9:56:00 EDT, Height, kg, 11/02/24 9:56:00 EDT, Dosing Weight Start Date: 11/02/24 Status: Ordered Quantity: 30.0 Unit: tab(s) Repeat number: 2 amoxicillin 875 mg / clavulanate 125 mg oral tablet (1 source) Penicillin-class Antibacterial Start: 01-23-2014 take 875 mg by mouth twice daily Amoxicillin-Pot Clavulanate Active 875 MG PO TWICE A DAY January 23, 2014 2:07pm 24 hr buPROPion hydrochloride 300 mg extended release oral tablet (2 sources) Aminoketone Start: 09-26-2024 End: 03-25-2025 take 1 tablet by mouth every hour, then take 1 tablet by mouth once daily buPROPion 300 mg/24 hours (XL) oral tablet, extended release Dose : 300 mg = 1 tab(s), Oral, qDay, # 90 tab(s), 1 Refill(s), Pharmacy: [facility]/pharmacy #[id number], 182.5, cm, 09/26/24 11:21:00 EDT, Height, kg, 09/26/24 11:21:00 EDT, Dosing Weight Start Date: 09/26/24 Stop Date: 03/25/25 Status: Ordered Quantity: 90.0 Unit: tab(s) Repeat number: 2 CeraVe itch Relief 1% topical lotion (7 sources) Start: 07-18-2023 End: 01-14-2024 apply 1 dose topically once as needed CeraVe itch Relief 1% topical lotion Dose = 1 daija, Topical, 5x/Day, PRN as needed for itching, X 30 day(s), # 240 mL, 5 Refill(s), Pharmacy: [facility]/pharmacy #[id number], 178, cm, 07/18/23 17:05:00 EST, Height, kg, 07/18/23 17:05:00 EST, Dosing Weight Start Date: 07/18/23 Stop Date: 01/14/24 Status: Ordered Start: 05-04-2023 End: 10-31-2023 apply 1 dose topically once as needed CeraVe itch Relief 1% topical lotion Dose = 1 daija, Topical, 5x/Day, PRN as needed for itching, X 30 day(s), # 240 mL, 5 Refill(s), [id number], 178, cm, 05/04/23 16:27:00 EST, Height, kg, 05/04/23 16:27:00 EST, Dosing Weight Start Date: 05/04/23 Stop Date: 10/31/23 Status: Ordered DME MISCellaneous (20 sources) Start: 02-23-2023 DME MISCellane ous See Instructions, dx M17.9, Z98.890 dispense one walker., # 1 EA, 0 Refill(s), Knee osteoarthritis H/O knee surgery Start Date: 02/23/23 Status: Ordered Quantity: 1.0 Unit: EA Repeat number: 1 Indications: Osteoarthritis of knee, unspecified; Other specified postprocedural states; Start: 02-23-2023 DME MISCellane ous See Instructions, dx M17.9, Z98.890 dispense one walker., # 1 EA, 0 Refill(s), Knee osteoarthritis H/O knee surgery Start Date: 02/23/23 Status: Ordered Start: 02-16-2023 DME MISCellane ous See Instructions, dx M17.9, Z98.890; dispense one shower chair., # 1 EA, 0 Refill(s), 92 Start Date: 02/16/23 Status: Ordered Quantity: 1.0 Unit: EA Repeat number: 1 Start: 02-16-2023 DME MISCellane ous See Instructions, dx M17.9, Z98.890; dispense one toilet sear riser with grab bars, # 1 EA, 0 Refill(s), H/O knee surgery Knee osteoarthritis, 92 Start Date: 02/16/23 Status: Ordered Quantity: 1.0 Unit: EA Repeat number: 1 Indications: Osteoarthritis of knee, unspecified; Other specified postprocedural states; Start: 02-16-2023 DME MISCellane ous See Instructions, dx M17.9, Z98.890; dispense one shower chair., # 1 EA, 0 Refill(s), 92 Start Date: 02/16/23 Status: Ordered Start: 02-16-2023 DME MISCellane ous See Instructions, dx M17.9, Z98.890; dispense one toilet sear riser with grab bars, # 1 EA, 0 Refill(s), H/O knee surgery Knee osteoarthritis, 92 Start Date: 02/16/23 Status: Ordered docusate sodium 100 mg oral tablet (1 source) Start: 04-13-2021 End: 10-10-2021 docusate sodium 100 mg oral tablet Dose : 100 mg = 1 tab(s), Oral, qDay, # 90 tab(s), 1 Refill(s), [id number], 178, cm, 04/13/21 16:23:00 EST, Height, kg, 04/13/21 16:23:00 EST, Dosing Weight Start Date: 04/13/21 Stop Date: 10/10/21 Status: Ordered gabapentin 300 mg oral capsule (8 sources) Anti-epileptic Agent Start: 09-26-2024 End: 12-25-2024 gabapentin 300 mg oral capsule Dose : 300 mg = 1 cap(s), Oral, TID, # 90 cap(s), 2 Refill(s), [id number], Ulnar neuropathy, 182.5, cm, 09/26/24 11:21:00 EDT, Height, 101.2, kg, 09/26/24 11:21:00 EDT, Dosing Weight Start Date: 09/26/24 Stop Date: 12/25/24 Status: Ordered Quantity: 90.0 Unit: cap(s) Repeat number: 3 Indications: Lesion of ulnar nerve, unspecified upper limb; Start: 07-07-2023 End: 02-14-2024 gabapentin 300 mg oral capsu le Dose : 600 mg = 2 cap(s), Oral, TID, fill on or after 11/16/2023, # 180 cap(s), 2 Refill(s), Pharmacy: [facility]/pharmacy #[id number], Cervical radiculopathy, 178, cm, 11/16/23 10:41:00 EDT, Height, 102.4, kg, 11/16/23 10:41:00 EDT, Dosing Weight Start Date: 11/16/23 Stop Date: 02/14/24 Status: Ordered hydrOXYzine hydrochloride 10 mg oral tablet (7 sources) Antihistamine Start: 03-07-2024 End: 03-05-2025 hydrOXYzine hydrochloride 10 mg oral tablet Dose : 20 mg = 2 tab(s), Oral, TID, TAKE 2 TABLET BY MOUTH THREE TIMES A DAY NEEDED FOR ANXIETY, X 30 day(s), # 180 tab(s), 5 Refill(s), 03/05/25 11:03:00 AM EDT, Pharmacy: [facility]/pharmacy #[id number], 182.5, cm, 09/06/24 10:23:00 EDT, Height, kg, 09/06/24 10:23:00 EDT, Dosing Weight Start Date: 09/06/24 Stop Date: 03/05/25 Status: Ordered Quantity: 180.0 Unit: tab(s) Repeat number: 6 Start: 01-16-2024 End: 02-15-2024 hydrOXYzine hydrochloride 10 mg oral tablet Dose : 20 mg = 2 tab(s), Oral, TID, TAKE 2 TABLET BY MOUTH THREE TIMES A DAY NEEDED FOR ANXIETY, X 30 day(s), # 180 tab(s), 0 Refill(s), 02/15/24 3:52:00 PM EDT, Pharmacy: [facility]/pharmacy #[id number], 70.1, cm, 12/29/23 13:25:00 EDT, Height, kg, 12/29/23 13:25:00 EDT, Dosing Weight Start Date: 01/16/24 Stop Date: 02/15/24 Status: Ordered Start: 05-04-2023 End: 08-02-2023 hydrOXYzine hydrochloride 25 mg oral tablet Dose : 25 mg = 1 tab(s), Oral, QID, PRN as needed for itching, start half tablet, may increase to full tablet, X 30 day(s), # 90 tab(s), 2 Refill(s), 08/02/23 4:44:00 PM EST, Pharmacy: [facility]/pharmacy #[id number], 178, cm, 05/04/23 16:27:00 EST, Height, kg, 05/04/23 16:27:00 EST, Dosing Weight Start Date: 05/04/23 Stop Date: 08/02/23 Status: Ordered meloxicam 15 mg oral tablet (6 sources) Nonsteroidal Anti-inflammatory Drug Start: 01-04-2024 End: 03-05-2025 meloxicam 15 mg oral tablet Dose : 15 mg = 1 tab(s), Oral, qDay, # 90 tab(s), 1 Refill(s), Pharmacy: [facility]/pharmacy #[id number], 182.5, cm, 09/06/24 10:23:00 EDT, Height, kg, 09/06/24 10:23:00 EDT, Dosing Weight Start Date: 09/06/24 Stop Date: 03/05/25 Status: Ordered Quantity: 90.0 Unit: tab(s) Repeat number: 2 Start: 12-14-2023 meloxicam 15 m g oral tablet Dose : 15 mg = 1 tab(s), Oral, qDay, # 30 tab(s), 0 Refill(s), [id number], 178, cm, 11/16/23 10:41:00 EDT, Height, kg, 11/16/23 10:41:00 EDT, Dosing Weight Start Date: 12/14/23 Status: Ordered Start: 10-07-2023 meloxicam 15 m g oral tablet Dose : 15 mg = 1 tab(s), Oral, qDay, # 30 tab(s), 0 Refill(s) Start Date: 10/07/23 Status: Ordered methylPREDNISolone 4 mg oral tablet (1 source) Corticosteroid Start: 06-28-2023 End: 07-04-2023 Medrol Dosepak 4 mg oral tablet Per Dosepak Instructions, Oral, Daily, X 6 day(s), # 21 tab(s), 0 Refill(s), 07/04/23 5:06:00 PM EST Start Date: 06/28/23 Stop Date: 07/04/23 Status: Ordered Multivitamin preparation (16 sources) Start: 08-06-2019 take 1 tablet by mouth once daily Multivitamin Dose = 1 tab(s), Oral, Daily, 0 Refill(s) Start Date: 08/06/19 Status: Ordered naproxen 500 mg delayed release oral tablet (12 sources) Nonsteroidal Anti-inflammatory Drug Start: 05-07-2022 End: 02-13-2024 naproxen 500 mg oral delayed release tablet Dose : 500 mg = 1 tab(s), Oral, BID, X 90 day(s), # 180 tab(s), 1 Refill(s), 02/13/24 1:06:00 PM EDT, Pharmacy: [facility]/pharmacy #[id number], 178, cm, 08/17/23 11:42:00 EDT, Height, kg, 08/17/23 11:42:00 EDT, Dosing Weight Start Date: 08/17/23 Stop Date: 02/13/24 Status: Ordered 12 hr orphenadrine citrate 100 mg extended release oral tablet (1 source) Muscle Relaxant Start: 06-28-2023 End: 07-03-2023 orphenadrine 100 mg oral tablet, extended release Dose : 100 mg = 1 tab(s), Oral, BID, PRN as needed for pain, X 5 day(s), # 10 tab(s), 0 Refill(s), 07/03/23 5:06:00 PM EST Start Date: 06/28/23 Stop Date: 07/03/23 Status: Ordered pantoprazole 40 mg delayed release oral tablet (2 sources) Proton Pump Inhibitor Start: 10-08-2024 pantoprazole 40 mg oral enteric coated tablet Dose : 40 mg = 1 tab(s), Oral, BIDAC, # 60 tab(s), 1 Refill(s), Pharmacy: [facility]/pharmacy #[id number], 182.5, cm, 10/04/24 15:30:00 EDT, Height, kg, 10/04/24 15:30:00 EDT, Dosing Weight Start Date: 10/08/24 Status: Ordered Quantity: 60.0 Unit: tab(s) Repeat number: 2 polyethylene glycol 3350 85322 mg powder for oral solution (11 sources) Osmotic Laxative Start: 09-23-2023 take 17 doses by mouth once daily as needed MiraLax oral powder for reconstitution Dose : 17 gram(s) =, Oral, qDay, PRN for hard stool, # 510 gram(s), 1 Refill(s), Pharmacy: [facility]/pharmacy #[id number], 178, cm, 09/23/23 10:21:00 EDT, Height, kg, 09/23/23 10:21:00 EDT, Dosing Weight Start Date: 09/23/23 Status: Ordered Start: 07-18-2023 take 17 doses by jonah once daily as needed MiraLax oral powder for reconstitution Dose : 17 gram(s) =, Oral, qDay, PRN for hard stool, # 510 gram(s), 1 Refill(s), Pharmacy: [facility]/pharmacy #[id number], 178, cm, 07/18/23 17:05:00 EST, Height, kg, 07/18/23 17:05:00 EST, Dosing Weight Start Date: 07/18/23 Status: Ordered Start: 05-04-2023 take 17 doses by jonah once daily as needed MiraLax oral powder for reconstitution Dose : 17 gram(s) =, Oral, qDay, PRN for hard stool, # 510 gram(s), 1 Refill(s), Pharmacy: [facility]/pharmacy #[id number], 178, cm, 05/04/23 16:27:00 EST, Height, kg, 05/04/23 16:27:00 EST, Dosing Weight Start Date: 05/04/23 Status: Ordered Start: 01-06-2023 take 17 doses by jonah twice daily MiraLax oral powder for reconstitution Dose : 17 gram(s) =, Oral, BID, # 510 gram(s), 1 Refill(s), Pharmacy: [facility]/pharmacy #[id number], 178, cm, 01/06/23 16:19:00 EDT, Height, kg, 01/06/23 16:19:00 EDT, Dosing Weight Start Date: 01/06/23 Status: Ordered sennosides, long term 8.6 mg oral tablet (2 sources) Start: 09-06-2024 senna (sennosi theodore) 8.6 mg oral tablet Dose : 17.2 mg = 2 tab(s), Oral, qHS, PRN as needed for constipation while on opioid, # 60 tab(s), 2 Refill(s), Pharmacy: [facility]/pharmacy #[id number], 182.5, cm, 09/06/24 10:23:00 EDT, Height, kg, 09/06/24 10:23:00 EDT, Dosing Weight Start Date: 09/06/24 Status: Ordered Quantity: 60.0 Unit: tab(s) Repeat number: 3 sertraline 100 mg oral tablet (13 sources) Serotonin Reuptake Inhibitor Start: 10-04-2024 take 2 tablets by mouth once daily at bedtime sertraline 100 mg oral tablet TAKE 2 TABLETS BY MOUTH EVERY DAY AT BEDTIME Start Date: 10/04/24 Status: Ordered Repeat number: 1 Start: 07-07-2023 sertraline 200 mg oral capsule Dose : 200 mg = 1 cap(s), Oral, qDay, swallow whole, # 30 cap(s), 0 Refill(s) Start Date: 07/07/23 Status: Ordered Start: 12-30-2022 sertraline 100 mg oral tablet Dose : 100 mg = 1 tab(s), Oral, qDay, # 90 tab(s), 0 Refill(s) Start Date: 12/30/22 Status: Ordered tamsulosin hydrochloride 0.4 mg oral capsule (14 sources) alpha-Adrenergic Sandra Start: 01-04-2024 End: 03-05-2025 tamsulosin 0.4 mg oral capsule Dose : 0.8 mg = 2 cap(s), Oral, qDay, new dose, # 180 cap(s), 1 Refill(s), Pharmacy: [facility]/pharmacy #[id number], 182.5, cm, 09/06/24 10:23:00 EDT, Height, kg, 09/06/24 10:23:00 EDT, Dosing Weight Start Date: 09/06/24 Stop Date: 03/05/25 Status: Ordered Quantity: 180.0 Unit: cap(s) Repeat number: 2 Start: 04-04-2023 End: 12-19-2023 tamsulosin 0.4 mg oral capsu le Dose : 0.8 mg = 2 cap(s), Oral, qDay, new dose, # 180 cap(s), 1 Refill(s), Pharmacy: [facility]/pharmacy #[id number], 178, cm, 05/04/23 16:27:00 EST, Height, kg, 05/04/23 16:27:00 EST, Dosing Weight Start Date: 06/22/23 Stop Date: 12/19/23 Status: Ordered turmeric extract 500 mg oral capsule (16 sources) Start: 08-06-2019 turmeric 500 m g oral capsule See Instructions, 0 Refill(s) Start Date: 08/06/19 Status: Ordered 24 hr venlafaxine 75 mg extended release oral capsule (5 sources) Serotonin and Norepinephrine Reuptake Inhibitor Start: 01-29-2022 End: 11-03-2022 venlafaxine 75 mg oral capsule, extended release Dose : 75 mg = 1 cap(s), Oral, qDay, # 90 cap(s), 1 Refill(s), Pharmacy: [facility]/pharmacy #[id number], 178, cm, 10/07/22 16:16:00 EDT, Height, kg, 10/07/22 16:16:00 EDT, Dosing Weight Start Date: 10/07/22 Status: Ordered Start: 04-13-2021 End: 10-10-2021 venlafaxine 75 mg oral capsu le, extended release Dose : 75 mg = 1 cap(s), Oral, qDay, # 90 cap(s), 1 Refill(s), Pharmacy: [facility]/pharmacy #[id number], 178, cm, 04/13/21 16:23:00 EST, Height, kg, 04/13/21 16:23:00 EST, Dosing Weight Start Date: 04/13/21 Stop Date: 10/10/21 Status: Ordered vitamin b12 2 mg oral capsule (1 source) Vitamin B12 Start: 08-06-2020 Vitamin B12 Methylcobalamin 2000 mcg oral capsule See Instructions, 0 Refill(s) Start Date: 08/06/20 Status: Ordered Vitamin B12 Methylcobalamin 2000 mcg oral capsule (15 sources) Start: 08-06-2020 Vitamin B12 Methylcobalamin 2000 mcg oral capsule See Instructions, 0 Refill(s) Start Date: 08/06/20 Status: Ordered Vitamin C 1000 mg oral tablet (16 sources) Start: 08-06-2019 Vitamin C 1000 mg oral tablet Dose : 1,000 mg = 1 tab(s), Oral, qDay, # 30 tab(s), 0 Refill(s) Start Date: 08/06/19 Status: Ordered vitamin K1 (14 sources) Warfarin Reversal Agent, Vitamin K Start: 08-06-2019 Vitamin K1 See Instructions, 0 Refill(s) Start Date: 08/06/19 Status: Ordered vitamin K2 (1 source) Start: 08-06-2020 take 1 ug by mouth once daily Vitamin K2 See Instructions, mcg Oral qDay, 0 Refill(s) Start Date: 08/06/20 Status: Ordered zinc acetate 25 mg oral capsule (16 sources) Start: 08-06-2019 zinc (as acetate) 25 mg oral capsule Dose : 25 mg = 1 cap(s), Oral, qDay, # 250 cap(s), 0 Refill(s) Start Date: 08/06/19 Status: Ordered Completed/Discontinued Medications Medication Drug Class(es) Dates Sig (Normalized) Sig (Original) oxyCODONE hydrochloride 5 mg oral tablet (2 sources) Opioid Agonist Start: 10-07-2023 oxyCODONE 5 mg oral tablet ( IMMEDIATE release ) Dose : 2.5 mg = 0.5 tab(s), Oral, q6h, PRN as needed for pain, 0 Refill(s), 97.5 Start Date: 10/07/23 Status: Ordered predniSONE 50 mg oral tablet (1 source) Start: 06-30-2023 End: 07-05-2023 predniSONE 50 mg oral tablet Dose : 50 mg = 1 tab(s), Oral, qDay, Take with food, # 5 tab(s), 0 Refill(s), Pharmacy: [facility]/pharmacy #[id number], 178, cm, 07/01/23 13:51:00 EST, Height, kg, 07/01/23 13:51:00 EST, Dosing Weight Start Date: 06/30/23 Stop Date: 07/05/23 Status: Ordered Problems Active Problems Problem Classification Problem Date Documented Da te Episodic/Chronic Anxiety disorders (20 sources) Anxiety; Translations: [Obsessive-compulsive disorder] Onset: 07-31-2024 02-13-2019 Chronic Conduction disorders (13 sources) 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 Developmental disorders (1 source) Unspecified intellectual disabilities; Translations: [Unspecified intellectual disabilities] Onset: 10-23-2024 Chronic Diabetes mellitus without complication (19 sources) Hyperglycemia 02-13-2019 Episodic Disorders of lipid metabolism (2 sources) Hyperlipidemia 05-25-2024 Chronic Disorders usually diagnosed in infancy, childhood, or adolescence (13 sources) Autism spectrum disorder 01-06-2023 Chronic Headache; including migraine (1 source) Headache; Translations: [Headache, unspecified] Episodic Heart valve disorders (20 sources) Mitral valve regurgitation; Translations: [Tricuspid valve regurgitation] 02-13-2019 Chronic Hyperplasia of prostate (20 sources) Benign prostatic hyperplasia; Translations: [Benign prostatic hypertrophy without outflow obstruction] 02-13-2019 Chronic Malaise and fatigue (1 source) Asthenia; Translations: [Weakness] Episodic Mood disorders (18 sources) Major depression in remission 08-25-2020 Chronic Mycoses (17 sources) Onychomycosis 10-23-2021 Episodic Osteoarthritis (20 sources) Osteoarthritis; Translations: [Osteoarthritis of knee] Onset: 07-27-2024 02-15-2019 Chronic Other aftercare (2 sources) Follow-up orthopedic assessment; Translations: [Aftercare following joint replacement surgery] Chronic Other aftercare (6 sources) Post-discharge follow-up 10-07-2023 Episodic Other bone disease and musculoskeletal deformities (18 sources) Hypertrophy of bone 02-13-2019 Episodic Other bone disease and musculoskeletal deformities (16 sources) Cervical somatic dysfunction 05-07-2022 Episodic Other bone disease and musculoskeletal deformities (16 sources) Somatic dysfunction of rib 05-07-2022 Episodic Other bone disease and musculoskeletal deformities (6 sources) Somatic dysfunction of pelvic region 11-16-2023 Episodic Other circulatory disease (1 source) Transient hypertension; Translations: [Elevated blood-pressure reading, without diagnosis of hypertension] Episodic Other connective tissue disease (2 sources) Artificial knee joint present; Translations: [Presence of left artificial knee joint] Chronic Other connective tissue disease (1 source) Other symptoms and signs involving the musculoskeletal system; Translations: [Other symptoms and signs involving the musculoskeletal system] Episodic Other connective tissue disease (10 sources) Muscle weakness of upper limb 07-01-2023 Episodic Other connective tissue disease (1 source) Musculoskeletal test abnormal; Translations: [Other symptoms and signs involving the musculoskeletal system] Episodic Other connective tissue disease (1 source) Hand pain; Translations: [Pain in right hand] Episodic Other connective tissue disease (2 sources) Pain in finger of right hand; Translations: [Pain in right finger(s)] Episodic Other ear and sense organ disorders (18 sources) Does use hearing aid 08-06-2019 Episodic Other gastrointestinal disorders (18 sources) Constipation 08-06-2019 Episodic Other gastrointestinal disorders (1 source) Dysphagia, unspecified; Translations: [Dysphagia, unspecified] Onset: 10-23-2024 Episodic Other gastrointestinal disorders (1 source) Heartburn; Translations: [Heartburn] Onset: 10-23-2024 Episodic Other infections; including parasitic (18 sources) History of herpes zoster 02-06-2020 Episodic Other injuries and conditions due to external causes (3 sources) At low risk for fall 01-29-2022 Episodic Other nervous system disorders (9 sources) 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 Other nervous system disorders (1 source) Walking disability; Translations: [Difficulty in walking, not elsewhere classified] Chronic Other nervous system disorders (2 sources) Abnormal gait; Translations: [Other abnormalities of gait and mobility] Episodic Other non-traumatic joint disorders (2 sources) Bone spur of vertebra; Translations: [Osteophyte, vertebrae] Chronic Other non-traumatic joint disorders (1 source) Pain in left knee; Translations: [Pain of left knee joint] Episodic Other non-traumatic joint disorders (16 sources) Knee pain 05-07-2022 Episodic Other non-traumatic joint disorders (1 source) Pain in right knee; Translations: [Pain of right knee joint] Episodic Other non-traumatic joint disorders (1 source) Pain of right elbow joint; Translations: [Pain in right elbow] Episodic Other non-traumatic joint disorders (1 source) Pain of right wrist; Translations: [Pain in right wrist] Episodic Other nutritional; endocrine; and metabolic disorders (3 sources) Body mass index 30+ - obesity 11-16-2023 Chronic Other nutritional; endocrine; and metabolic disorders (6 sources) Obesity 10-07-2023 Chronic Other nutritional; endocrine; and metabolic disorders (18 sources) Developmental delay 08-25-2020 Episodic Other nutritional; endocrine; and metabolic disorders (3 sources) Body mass index 25-29 - overweight 01-29-2022 Episodic Other nutritional; endocrine; and metabolic disorders (11 sources) Overweight 01-29-2022 Episodic Other nutritional; endocrine; and metabolic disorders (8 sources) Overweight in adulthood with body mass index of 25 or more but less than 30 10-07-2022 Episodic Other screening for suspected conditions (not mental disorders or infectious disease) (6 sources) Viral screening status; Translations: [Electrocardiogram abnormal] 08-12-2020 Episodic Other skin disorders (11 sources) Xeroderma 05-04-2023 Episodic Residual codes; unclassified (18 sources) Immunization due 02-06-2020 Episodic Screening and history of mental health and substance abuse codes (14 sources) Tobacco use and exposure - finding 08-05-2022 Chronic Spondylosis; intervertebral disc disorders; other back problems (11 sources) Degeneration of cervical intervertebral disc; Translations: [Other spondylosis with radiculopathy, cervical region] 07-01-2023 Chronic Spondylosis; intervertebral disc disorders; other back problems (20 sources) Neck pain; Translations: [Cervical radiculopathy] Onset: 06-28-2023 01-29-2022 Episodic Sprains and strains (1 source) Strain of muscle and/or tendon of lower leg; Translations: [Strain of unspecified muscle(s) and tendon(s) at lower leg level, unspecified leg, initial encounter] Onset: 08-19-2023 Episodic Unclassified (20 sources) Patient encounter status 08-06-2019 Unclassified (1 source) medical management Viral infection (18 sources) Herpes zoster 12-03-2019 Episodic Past or Other Problems Problem Classification Problem Date Documented Da te Episodic/Chronic Other non-epithelial cancer of skin (1 source) 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 TECHNIQUE: Multiple single contrast images of the esophagus and gastroesophageal junction were obtained following the oral administration of water soluble contrast FLUOROSCOPY DOSE AND TYPE: Radiation Exposure Index: Kerma mGy, 120.40. 1.4 minutes of fluoroscopy time was utilized. 24 images were obtained. FINDINGS: Esophagus is diffusely dilated on fruit press operator image. Barium tablet does not pass through the distal esophagus. On the double contrast images, there is a 2.5 cm irregular stricture at the GE junction. Esophagus is diffusely dilated and slightly hypo peristaltic. No evidence of leak. No hiatal hernia is seen and there is no evidence of achalasia. No gastroesophageal reflux was elicited during examination. IMPRESSION: Dilated esophagus with a 2.5 cm irregular stricture at the GE junction, this is concerning for esophageal carcinoma. Endoscopy is recommended to further evaluate. Interpreted by: Anna Dorantes MD Preliminary Report By: Anna Dorantes MD Electronically signed By Anna Dorantes MD Dictated Date: 11/22/2024 9:32:33 AM Prelim Date: 11/22/2024 9:42:24 AM Sign Date: 11/22/2024 9:42:24 AM Ordering Provider: ANNA VEGA [facility] XR SWALLOWING FUNCTIONon XR SWALLOWING FUNCTION ORIGINAL Images acquired, not reported on this accession number. [facility] MAIN Gastroenterology Visit Repor ton 10-23-2024 Gastroenterology Visit Report [facility] Gastroenterology [address] [place] [address] OFFICE VISIT Date of Service: 10/23/24 MR#: [id number] Acct: [id number] Name: CYNDEE HAWKINS Rep #: [id number] : 1960 Provider: DARLENE singh Age/Sex: 64/M Location: [facility] Status: Signed Intake Vital Signs 07/31/24 11:11 10/23/24 10:08 Height 5 ft 11 in 5 ft 11 in Weight: 213 lb 2 oz BMI 29.7 BP 151/94 H Respiration 16 Pulse 90 Pulse Oximetry (%) 92 Oxygen Delivery Method room air Intake Visit Reasons: Dysphagia Chief Complaint: trouble swallowing Spinning Bath Patroller Required: No Accompanied by: Sister Is patient in pain?: No Allergies No Known Allergies Allergy (Verified 10/23/24 10:02) Medications ???Medication ???Instructions ???Recorded ???Confirmed ???Type acetaminophen 500 mg tablet 1,000 mg (2 x 500 mg) PO Q8 #0 tab s 09/29/23 10/23/24 Rx sertraline 100 mg tablet 200 mg (2 x 100 mg) PO QHS #180 10/23/24 Rx tabs bupropion HCl 300 mg 24 hr tablet, 300 mg PO QAM 10/23/24 10/23/24 History extended release gabapentin 300 mg capsule 300 mg PO TID 10/23/24 10/23/24 Hi story meloxicam 15 mg tablet 15 mg PO QDAY 10/23/24 10/23/24 Hi story pantoprazole 40 mg tablet,delayed 40 mg PO .before meals 10/23/24 0 10/23/24 History release Nurse's Note: Food gets stuck about half way down and sometimes he has to cough it back up. Does ok with liquids. Mouth is dry all of the time. Mother in July and thinks the stress of that caused this. [facility] Medical History Chronic constipation Wears hearing aid Wears glasses Autistic behavior Anxiety Prostate disease Back pain OCD (obsessive compulsive disorder) Non-smoker History of stress test Intellectual disability Obsessive compulsive disorder Hearing problem History of emotional problems Bone fracture Arthritis Surgical History History of ankle surgery History of tonsillectomy History of colonoscopy History of left knee replacement History of total left hip replacement History of total right hip replacement History of nasal surgery Family History Other Arthritis Bowel disease Colon cancer Diabetes Heart disease High cholesterol Hypertension Osteoporosis Social History Smoking Status: Never smoker alcohol intake: never substance use type: does not use what type of physical activity do you participate in: walking HPI HPI Chief Complaint: trouble swallowing Details: CYNDEE HAWKINS, is a 64 M who presents to the office today for - seen in office today with his sister - dysphagia, intermittent, x6 weeks - weight loss of 10lbs in past 6 weeks - regurgitation or foods a as well - c/o odynophagia - c/o heartburn - intermittent choking with foods - sister reports pantoprazole bottle says, take before you eat and she reports he might be taking this twice a day - reports he feels his symptoms are related to stress with his mother passing - c/o chronic itching - reports screening colonoscopy was a couple years ago, uncertain when he is to repeat this - caffeine - 2 cups a day - Meloxicam QD - EtOH 1 beer a day, none in many years - denies any smoking - he is taking herbal pills AF BetaFood 0800 TID AC for GB - prescribed by chiropractor x1 week ROS Const Constitutional: Positive for weight change (loss from not eating); No fatigue or fever(s) ENT ENT: Positive for difficulty swallowing Gastro GI: Positive for heartburn, difficulty swallowing and vomiting (when eating); No abdominal pain, belching, bloating, change in bowel habits, change in stool character, coffee ground emesis, constipation, cramping, diarrhea, feeling full early, excessive flatus, incontinent of stools, Vomiting blood/hematemesis, Blood in stool, loose stools, Black,tarry stools, nausea/dyspepsia, pain with swallowing or other Musc Musculoskeletal: Positive for numbness (hands), stiffness, tingling (hands) and Arthritis; No joint pain Skin Skin: Positive for dry skin, lesions (skin biopsy) and itchy eyes (hands and legs); No yellowing of the eye Neuro Neurology: Positive for numbness (hands) and tingling (hands) Psych Psychiatric: Positive for anxiety, Positive for depression, Positive for Compulsive Behavior, Positive for hyperactivity, Positive for inattentiveness and Positive for obsessions/compulsions Endo Endocrine: Positive for weight change (loss from not eating); No fatigue Aller/Imm Allergy/Immunologic: Positive for itchy eyes (hands and legs) Jeet/Lymp He (more content not included)... Normal [facility] MR/BMS.BPon 07-31-2024 MR/BMS.BP [address], [address] [place] [address] OFFICE VISIT Date of Service: 07/31/24 MR#: [id number] Acct: [id number] Name: CYNDEE HAWKINS Rep #: [id number] : 1960 Provider: Dr. Paul Pedroza se, DO Age/Sex: 64/M Location: [facility] Status: Signed Intake Vital Signs 05/02/24 11:21 07/31/24 11:11 Height 5 ft 11 in 5 ft 11 in BP 116/74 Blood Pressure Location Rt brachial Position Sitting Respiration 16 Pulse 63 Pulse Source Monitor BP Intake Visit Reasons: 3 M FU Allergies No Known Allergies Allergy (Verified 05/02/24 11:25) [facility] Medical History Chronic constipation Wears hearing aid Wears glasses Autistic behavior Anxiety Prostate disease Back pain OCD (obsessive compulsive disorder) Non-smoker History of stress test Intellectual disability Obsessive compulsive disorder Hearing problem History of emotional problems Bone fracture Arthritis Surgical History History of ankle surgery History of tonsillectomy History of colonoscopy History of left knee replacement History of total left hip replacement History of total right hip replacement History of nasal surgery Family History Other Arthritis Bowel disease Colon cancer Diabetes Heart disease High cholesterol Hypertension Osteoporosis Social History Smoking Status: Never smoker alcohol intake: current details: 3 to 4 a week substance use type: does not use what type of physical activity do you participate in: walking HPI History of Present Illness History provided by: patient HPI: Cyndee Hawkins is a 64 year old male who presents today for follow up evaluation. Presents today with sister. Mother on June 26 after being on hospice for two weeks. Has been able to sleep largely well. Has been trying to work out every Tuesday, Tuesday and Tuesday. Does report to being grouchy at times, specifically at his sister and father. Sister has been managing nearly all the finances of the house. Sreedhar recently had skin surgery as well which was a surprise. Home health does come Tuesday, Tuesday and Tuesday. Appetite has been largely stable. Looking into additional programming such as [employer]. Denies SI/HI or AVH. Takes medication regularly, but again difficult to adjust efficacy secondary to current life stress. In October is going to have arm surgery for radial nerve entrapment. Review of Systems Constitutional Denies: fatigue Eyes Denies: change in vision or blurry vision Cardiovascular Denies: chest pain, palpitations or dyspnea Respiratory Denies: dyspnea, cough or wheezing Gastrointestinal Denies: abdominal pain, nausea, vomiting, diarrhea or constipation Genitourinary Denies: dysuria or urinary frequency Musculoskeletal Reports: joint pain (Has been improving since knee replacement) and other (stiffness, arthritis ); Denies: back pain or muscle weakness Integumentary/Breast Reports: pruritus and other (dryness ); Denies: rash or new lesions Neurological Reports: headache(s); Denies: dizziness or confusion Endocrine Denies: fatigue or excessive sweating Hematologic/Lymphatic Denies: easy bruising or easy bleeding Allergic/Immunologic Denies: wheezing Exam Mental Status Exam - Psych Appearance well kempt Attitude cooperative and pleasant Activity/Motor Behavior MSE activity/motor behavior finding no adventitious movements Speech regular rate, regular prosody and loud Mood sad Affect restricted Thought Process linear, logical and coherent Thought Content no delusions and no hallucinations Suicidal Ideation none Homicidal Ideation none Attention intact Concentration intact Sensorium/Orientation awake, alert and oriented x3 Memory/Cognition impaired (Likely below expected for given age) Insight questionable Judgement fair Assessment Plan Assessment Plan (1) Obsessive compulsive disorder: Qualifiers: Obsessive-compulsive disorder type: mixed obsessional thoughts and acts Qualified Code(s): F42.2 - Mixed obsessional thoughts and acts Plan: - Can continue hydroxyzine 20 mg 3 times daily as needed - continue sertraline as prescribed - Again, recommend [facility] house - some worsening of symptoms secondary to recent loss of mother (2) Intellectual disability: Plan: Likely autism spectrum disorder Medications: Refilled hydroxyzine HCl 10 mg PO TID PRN 90 TABLETS 1RF for anxiety F42.9 - Obsessive-compulsive disorder, unspecified, F79 - Unspecified intellectual disabilities sertraline 200 mg (2 x 100 mg) PO QHS 180 tabs 2RF F42.2 - Mixed obsessional thoughts and (more content not included)... Normal [facility] .Auto Diffon 05-10-2024 Basophil, Absolute 0.0 10 3/mcL Normal 0.0-0.2 [facility] Comment on above: Performed By: #### A CASSANDRA, A1C, CBC, ADIFF, CMP, LIPID, PSA, GFR #### [place] [address] [place], [place] [address] Basophils/100 WBC (Bld) 0.6 % Normal 0.0-2.5 [facility] Comment on above: Performed By: #### A CASSANDRA, A1C, CBC, ADIFF, CMP, LIPID, PSA, GFR #### [place] [address] [place], [place] [address] Eosinophil, Absolute 0.1 10 3/mcL Normal 0.0-0.7 [facility] Comment on above: Performed By: #### A CASSANDRA, A1C, CBC, ADIFF, CMP, LIPID, PSA, GFR #### [address] [address] Eosinophils/100 WBC (Bld) 2.1 % Normal 0.0-7.0 [facility] Comment on above: Performed By: #### A CASSANDRA, A1C, CBC, ADIFF, CMP, LIPID, PSA, GFR #### [address] [address] Lymphocyte, Absolute 0.9 10 3/mcL Normal 0.9-4.3 [facility] Comment on above: Performed By: #### A CASSANDRA, A1C, CBC, ADIFF, CMP, LIPID, PSA, GFR #### [address] [address] Lymphocytes/100 WBC (Bld) 17.9 % Low 20.0-40.0 [facility] Comment on above: Performed By: #### A CASSANDRA, A1C, CBC, ADIFF, CMP, LIPID, PSA, GFR #### [address] [address] Monocyte, Absolute 0.5 10 3/mcL Normal 0.1-1.4 [facility] Comment on above: Performed By: #### A CASSANDRA, A1C, CBC, ADIFF, CMP, LIPID, PSA, GFR #### [address] [address] Monocytes/100 WBC (Bld) 10.7 % Normal 2.0-13.0 [facility] Comment on above: Performed By: #### A CASSANDRA, A1C, CBC, ADIFF, CMP, LIPID, PSA, GFR #### [address] [address] Neutrophils/100 WBC (Bld) 68.7 % Normal 50.0-75.0 [facility] Comment on above: Performed By: #### A CASSANDRA, A1C, CBC, ADIFF, CMP, LIPID, PSA, GFR #### [address] [address] .GFRon 05-10-2024 GFR 113 ml/min/1.73sqm Normal [facility] Comment on above: Result Comment: GFR Population mean for , Non- Americans Ages 20-29 = 116 mL/min/1.73 sq.m. Ages 30-39 = 107 mL/min/1.73 sq.m. Ages 40-49 = 99 mL/min/1.73 sq.m. Ages 50-59 = 93 mL/min/1.73 sq.m. Ages 60-69 = 85 mL/min/1.73 sq.m. Ages 70+ = 75 mL/min/1.73 sq.m. Chronic Kidney Disease: Less than 60 mL/min/1.73 square meters End Stage Renal Disease: Less than 15 mL/min/1.73 square meters Performed By: #### A CASSANDRA, A1C, CBC, ADIFF, CMP, LIPID, PSA, GFR #### [address] [address] GFR Non- 93 ml/min/1.73sqm Normal [facility] Comment on above: Result Comment: GFR Population mean for , Non- Americans Ages 20-29 = 116 mL/min/1.73 sq.m. Ages 30-39 = 107 mL/min/1.73 sq.m. Ages 40-49 = 99 mL/min/1.73 sq.m. Ages 50-59 = 93 mL/min/1.73 sq.m. Ages 60-69 = 85 mL/min/1.73 sq.m. Ages 70+ = 75 mL/min/1.73 sq.m. Chronic Kidney Disease: Less than 60 mL/min/1.73 square meters End Stage Renal Disease: Less than 15 mL/min/1.73 square meters Performed By: #### A CASSANDRA, A1C, CBC, ADIFF, CMP, LIPID, PSA, GFR #### [address] [address] .NEUABSon 05-10-2024 Neutrophil, Absolute 3.3 10 3/mcL Normal 2.3-8.1 [facility] Comment on above: Performed By: #### A CASSANDRA, A1C, CBC, ADIFF, CMP, LIPID, PSA, GFR #### [address] [address] A1Con 05-10-2024 Glucose [Mass/Vol] 105 mg/dL Normal [facility] Comment on above: Result Comment: Suzanne mated Average Glucose calculated by equation ((28.7xA1C)-46.7) Estimated average glucose (eAG) is a calculated value from Hemoglobin A1C and is solar sales representative and assessor of the average blood glucose level in the last 2-3 month period. Normal range: less than 114 mg/dL Performed By: #### A CASSANDRA, A1C, CBC, ADIFF, CMP, LIPID, PSA, GFR #### [place] [id number] HbA1c (Bld) [Mass fraction] 5.3 % Normal 4.3-6.4 [facility] Comment on above: Performed By: #### A CASSANDRA, A1C, CBC, ADIFF, CMP, LIPID, PSA, GFR #### [place] [id number] CBCon 05-10-2024 Erythrocyte distribution width (RBC) [Ratio] 12.9 % Normal 11.5-15.5 [facility] Comment on above: Performed By: #### A CASSANDRA, A1C, CBC, ADIFF, CMP, LIPID, PSA, GFR #### [place] [id number] Hematocrit (Bld) [Volume fraction] 45.0 % Normal 40.0-52.0 [facility] Comment on above: Performed By: #### A CASSANDRA, A1C, CBC, ADIFF, CMP, LIPID, PSA, GFR #### [place] [id number] Hgb 15.3 G/dL Normal 13.0-17.5 [facility] Comment on above: Performed By: #### A CASSANDRA, A1C, CBC, ADIFF, CMP, LIPID, PSA, GFR #### [place] [id number] MCH (RBC) [Entitic mass] 32.5 pg Normal 27.0-33.0 [facility] Comment on above: Performed By: #### A CASSANDRA, A1C, CBC, ADIFF, CMP, LIPID, PSA, GFR #### [address] [address] MCHC 34.1 G/dL Normal 32.0-36.0 [facility] Comment on above: Performed By: #### A CASSANDRA, A1C, CBC, ADIFF, CMP, LIPID, PSA, GFR #### [address] [address] MCV (RBC) [Entitic vol] 95.5 fL Normal 81.0-100.0 [facility] Comment on above: Performed By: #### A CASSANDRA, A1C, CBC, ADIFF, CMP, LIPID, PSA, GFR #### [address] [address] Platelet 187 10 3/mcL Normal 150-450 [facility] Comment on above: Performed By: #### A CASSANDRA, A1C, CBC, ADIFF, CMP, LIPID, PSA, GFR #### [address] [address] Platelet mean volume (Bld) [Entitic vol] 7.1 fL Normal 6.4-10.5 [facility] Comment on above: Performed By: #### A CASSANDRA, A1C, CBC, ADIFF, CMP, LIPID, PSA, GFR #### [address] [address] RBC 4.72 10 6/mcL Normal 4.50-6.00 [facility] Comment on above: Performed By: #### A CASSANDRA, A1C, CBC, ADIFF, CMP, LIPID, PSA, GFR #### [address] [address] WBC 4.8 10 3/mcL Normal 4.5-10.8 [facility] Comment on above: Performed By: #### A CASSANDRA, A1C, CBC, ADIFF, CMP, LIPID, PSA, GFR #### [address] [address] CMPon 05-10-2024 Albumin Level 4.2 G/dL Normal 3.4-4.8 [facility] Comment on above: Performed By: #### A CASSANDRA, A1C, CBC, ADIFF, CMP, LIPID, PSA, GFR #### [address] [address] Albumin/Globulin [Mass ratio] 1.4 {ratio} Normal 1.1-2.5 [facility] Comment on above: Performed By: #### A CASSANDRA, A1C, CBC, ADIFF, CMP, LIPID, PSA, GFR #### [address] [address] ALP [Catalytic activity/Vol] 90 U/L Normal 40-135 [facility] Comment on above: Performed By: #### A CASSANDRA, A1C, CBC, ADIFF, CMP, LIPID, PSA, GFR #### [address] [address] ALT [Catalytic activity/Vol] 37 U/L Normal 16-63 [facility] Comment on above: Performed By: #### A CASSANDRA, A1C, CBC, ADIFF, CMP, LIPID, PSA, GFR #### [address] [address] AST [Catalytic activity/Vol] 24 U/L Normal 10-40 [facility] Comment on above: Performed By: #### A CASSANDRA, A1C, CBC, ADIFF, CMP, LIPID, PSA, GFR #### [address] [address] Bili Total 0.5 mg/dL Normal 0.2-1.0 [facility] Comment on above: Result Comment: Use of this assay is not recommended for patients undergoing treatment with eltrombopag due to the potential for falsely elevated results. Performed By: #### A CASSANDRA, A1C, CBC, ADIFF, CMP, LIPID, PSA, GFR #### [address] [address] BUN/Creatinine Ratio 17 ratio Normal 7-27 [facility] Comment on above: Performed By: #### A CASSANDRA, A1C, CBC, ADIFF, CMP, LIPID, PSA, GFR #### [address] [address] Calcium [Mass/Vol] 9.4 mg/dL Normal 8.4-10.2 [facility] Comment on above: Performed By: #### A CASSANDRA, A1C, CBC, ADIFF, CMP, LIPID, PSA, GFR #### [address] [address] Chloride [Moles/Vol] 104 mmol/L Normal 98-107 [facility] Comment on above: Performed By: #### A CASSANDRA, A1C, CBC, ADIFF, CMP, LIPID, PSA, GFR #### [address] [address] CO2 [Moles/Vol] 22 mmol/L Low 23-31 [facility] Comment on above: Performed By: #### A CASSANDRA, A1C, CBC, ADIFF, CMP, LIPID, PSA, GFR #### [address] [address] Creatinine [Mass/Vol] 0.83 mg/dL Normal 0.70-1.30 [facility] Comment on above: Result Comment: Test ing performed on Siemens Dimension EXL analyzer using a modified kinetic Saida technique. Performed By: #### A CASSANDRA, A1C, CBC, ADIFF, CMP, LIPID, PSA, GFR #### [address] [address] Electrolyte Balance 17.0 mEq/L High 4.0-15.0 [facility] Comment on above: Performed By: #### A CASSANDRA, A1C, CBC, ADIFF, CMP, LIPID, PSA, GFR #### [address] [address] Globulin 2.9 G/dL Normal [facility] Comment on above: Performed By: #### A CASSANDRA, A1C, CBC, ADIFF, CMP, LIPID, PSA, GFR #### [address] [address] Glucose [Mass/Vol] 101 mg/dL Normal 80-115 [facility] Comment on above: Performed By: #### A CASSANDRA, A1C, CBC, ADIFF, CMP, LIPID, PSA, GFR #### [place] [address] [place], [place] [address] Potassium [Moles/Vol] 4.7 mmol/L Normal 3.5-5.1 [facility] Comment on above: Performed By: #### A CASSANDRA, A1C, CBC, ADIFF, CMP, LIPID, PSA, GFR #### [place] [address] [place], [place] [address] Sodium [Moles/Vol] 143 mmol/L Normal 136-145 [facility] Comment on above: Performed By: #### A CASSANDRA, A1C, CBC, ADIFF, CMP, LIPID, PSA, GFR #### [place] [id number] Total Protein 7.1 G/dL Normal 6.4-8.2 [facility] Comment on above: Performed By: #### A CASSANDRA, A1C, CBC, ADIFF, CMP, LIPID, PSA, GFR #### [address] [address] Urea nitrogen [Mass/Vol] 14 mg/dL Normal 7-18 [facility] Comment on above: Performed By: #### A CASSANDRA, A1C, CBC, ADIFF, CMP, LIPID, PSA, GFR #### [address] [address] LABORATORYOrdered By: SYSTEM SYSTEM on 05-10-2024 Albumin BCP dye [Mass/Vol] 4.2 G/dL Normal 3.4 - 4.8 G/dL AO ADM SS Albumin/Globulin [Mass ratio] 1.4 {ratio} Normal 1.1 - 2.5 ratio AO ADM SS ALP [Catalytic activity/Vol] 90 U/L Normal 40 - 135 U/L AO ADM SS ALT With P-5'-P [Catalytic activity/Vol] 37 U/L Normal 16 - 63 U/L AO ADM SS AST With P-5'-P [Catalytic activity/Vol] 24 U/L Normal 10 - 40 U/L AO ADM SS Basophils (Bld) [#/Vol] 0.0 103/mcL Normal 0.0 - 0.2 10^3/mcL AO Workflow SS Basophils/100 WBC (Bld) 0.6 % Normal 0.0 - 2.5 % AO Workflow SS Bilirubin [Mass/Vol] 0.5 mg/dL Normal 0.2 - 1 .0 mg/dL AO ADM SS Comment on above: Interpretive Data: U se of this assay is not recommended for patients undergoing treatment with eltrombopag due to the potential for falsely elevated results. Calcium [Mass/Vol] 9.4 mg/dL Normal 8.4 - 10. 2 mg/dL AO ADM SS Chloride [Moles/Vol] 104 mmol/L Normal 98 - 10 7 mmol/L AO ADM SS CO2 [Moles/Vol] 22 mmol/L Low 23 - 31 mmol/L AO ADM SS Creatinine [Mass/Vol] 0.83 mg/dL Normal 0.70 - 1.30 mg/dL AO ADM SS Comment on above: Interpretive Data: T esting performed on Siemens Dimension EXL analyzer using a modified kinetic Saida technique. Electrolyte Balance 17.0 mEq/L High 4.0 - 15 .0 mEq/L AO ADM SS Eosinophil, Absolute 0.1 103/mcL Normal 0.0 - 0 .7 10^3/mcL AO Workflow SS Eosinophils/100 WBC (Bld) 2.1 % Normal 0.0 - 7.0 % AO Workflow SS Erythrocyte distribution width (RBC) [Ratio] 12.9 % Normal 11.5 - 15.5 % AO Workflow SS GFR/1.73 sq M.predicted among blacks MDRD (S/P/Bld) [Vol rate/Area] 113 ml/min/1.73sqm Invalid Interpretation Code AO Chemistry S Comment on above: Interpretive Data: GFR Population mean for , Non- Americans Ages 20-29 = 116 mL/min/1.73 sq.m. Ages 30-39 = 107 mL/min/1.73 sq.m. Ages 40-49 = 99 mL/min/1.73 sq.m. Ages 50-59 = 93 mL/min/1.73 sq.m. Ages 60-69 = 85 mL/min/1.73 sq.m. Ages 70+ = 75 mL/min/1.73 sq.m. Chronic Kidney Disease: Less than 60 mL/min/1.73 square meters End Stage Renal Disease: Less than 15 mL/min/1.73 square meters GFR/1.73 sq M.predicted among non-blacks MDRD (S/P/Bld) [Vol rate/Area] 93 ml/min/1.73sqm Invalid Interpretation Code AO Chemistry S Comment on above: Interpretive Data: GFR Population mean for , Non- Americans Ages 20-29 = 116 mL/min/1.73 sq.m. Ages 30-39 = 107 mL/min/1.73 sq.m. Ages 40-49 = 99 mL/min/1.73 sq.m. Ages 50-59 = 93 mL/min/1.73 sq.m. Ages 60-69 = 85 mL/min/1.73 sq.m. Ages 70+ = 75 mL/min/1.73 sq.m. Chronic Kidney Disease: Less than 60 mL/min/1.73 square meters End Stage Renal Disease: Less than 15 mL/min/1.73 square meters Globulin 2.9 G/dL Invalid Interpretation Code AO ADM SS Glucose [Mass/Vol] 101 mg/dL Normal 80 - 115 mg/dL AO ADM SS Glucose [Mass/Vol] 105 mg/dL Invalid Interpretation Code AO Chemistry S Comment on above: Interpretive Data: E stimated average glucose (eAG) is a calculated value from Hemoglobin A1C and is solar sales representative and assessor of the average blood glucose level in the last 2-3 month period. Normal range: less than 114 mg/dL HbA1c (Bld) [Mass fraction] 5.3 % Normal 4.3 - 6.4 % AO ADM SS Hematocrit (Bld) [Volume fraction] 45.0 % Normal 40.0 - 52.0 % AO Workflow SS Hemoglobin (Bld) [Mass/Vol] 15.3 G/dL Normal 13.0 - 17.5 G/dL AO Workflow SS Lymphocytes (Bld) [#/Vol] 0.9 103/mcL Normal 0.9 - 4.3 10^3/mcL AO Workflow SS Lymphocytes/100 WBC (Bld) 17.9 % Low 20.0 - 40.0 % AO Workflow SS MCH (RBC) [Entitic mass] 32.5 pg Normal 27.0 - 33.0 pg AO Workflow SS MCHC 34.1 G/dL Normal 32.0 - 36.0 G/dL AO Workflow SS MCV (RBC) [Entitic vol] 95.5 fL Normal 81.0 - 100.0 fL AO Workflow SS Monocytes (Bld) [#/Vol] 0.5 103/mcL Normal 0.1 - 1.4 10^3/mcL AO Workflow SS Monocytes/100 WBC (Bld) 10.7 % Normal 2.0 - 13.0 % AO Workflow SS Neutrophils (Bld) [#/Vol] 3.3 103/mcL Normal 2.3 - 8.1 10^3/mcL AO Workflow SS Neutrophils/100 WBC (Bld) 68.7 % Normal 50.0 - 75.0 % AO Workflow SS Platelet mean volume (Bld) [Entitic vol] 7.1 fL Normal 6.4 - 10.5 fL AO Workflow SS Platelets (Bld) [#/Vol] 187 103/mcL Normal 150 - 450 10^3/mcL AO Workflow SS Potassium [Moles/Vol] 4.7 mmol/L Normal 3.5 - 5.1 mmol/L AO ADM SS Prostate specific Ag [Mass/Vol] 0.34 ng/mL Normal 0.00 - 4.00 ng/mL AO ADM SS Protein [Mass/Vol] 7.1 G/dL Normal 6.4 - 8.2 G/dL AO ADM SS RBC (Bld) [#/Vol] 4.72 106/mcL Normal 4.50 - 6.0 0 10^6/mcL AO Workflow SS Sodium [Moles/Vol] 143 mmol/L Normal 136 - 145 mmol/L AO ADM SS Urea nitrogen [Mass/Vol] 14 mg/dL Normal 7 - 18 mg/dL AO ADM SS Urea nitrogen/Creatinine [Mass ratio] 17 ratio Normal 7 - 27 ratio AO ADM SS WBC (Bld) [#/Vol] 4.8 103/mcL Normal 4.5 - 10.8 10^3/mcL AO Workflow SS LABORATORYOrdered By: Marcelino Rice on 05-10-2024 Cholesterol [Mass/Vol] 210 mg/dL High 0 - 200 mg/dL AO ADM SS Comment on above: Interpretive Data: C holesterol Reference Interval: Less than 200 Desirable 200-239 Borderline high risk 240 and above High risk Cholesterol in HDL [Mass/Vol] 46 mg/dL Normal 40 - 60 mg/dL AO ADM SS Cholesterol in LDL [Mass/Vol] 138 mg/dL High 0 - 130 mg/dL AO ADM SS Triglyceride [Mass/Vol] 132 mg/dL Normal 0 - 150 mg/dL AO ADM SS Comment on above: Interpretive Data: T riglyceride Reference Interval: Less than 150 Normal 150-199 Borderline high risk 200-499 High risk 500 or higher Very high risk LIPIDon 05-10-2024 Cholesterol [Mass/Vol] 210 mg/dL High 0-200 [facility] Comment on above: Result Comment: Chol esterol Reference Interval: Less than 200 Desirable 200-239 Borderline high risk 240 and above High risk Performed By: #### A CASSANDRA, A1C, CBC, ADIFF, CMP, LIPID, PSA, GFR #### [address] [address] Cholesterol in HDL [Mass/Vol] 46 mg/dL Normal 40-60 [facility] Comment on above: Performed By: #### A CASSANDRA, A1C, CBC, ADIFF, CMP, LIPID, PSA, GFR #### [address] [address] Cholesterol in LDL [Mass/Vol] 138 mg/dL High 0-130 [facility] Comment on above: Performed By: #### A CASSANDRA, A1C, CBC, ADIFF, CMP, LIPID, PSA, GFR #### [address] [address] Triglyceride [Mass/Vol] 132 mg/dL Normal 0-150 [facility] Comment on above: Result Comment: Trig lyceride Reference Interval: Less than 150 Normal 150-199 Borderline high risk 200-499 High risk 500 or higher Very high risk Performed By: #### A CASSANDRA, A1C, CBC, ADIFF, CMP, LIPID, PSA, GFR #### [address] [address] PSAon 05-10-2024 Prostate Specific Antigen 0.34 ng/mL Normal 0.00-4.00 [facility] Comment on above: Performed By: #### A CASSANDRA, A1C, CBC, ADIFF, CMP, LIPID, PSA, GFR #### [address] [address] MR/BMS.BPon 05-02-2024 MR/[place] [address] OFFICE VISIT Date of Service: 05/02/24 MR#: [id number] Acct: [id number] Name: CYNDEE HAWKINS Rep #: [id number] : 1960 Provider: Dr. Paul Pedroza se, DO Age/Sex: 64/M Location: [facility].BP Status: Signed Intake Vital Signs 01/26/24 11:48 05/02/24 11:21 Height 5 ft 11 in 5 ft 11 in BP 122/74 H 116/74 Blood Pressure Location Rt brachial Rt brachial Position Sitting Sitting Respiration 16 Pulse 76 63 Pulse Source Monitor Monitor BP Intake Visit Reasons: 3 M FU Accompanied by: Sister Allergies No Known Allergies Allergy (Verified 05/02/24 11:25) Medications ???Medication ???Instructions ???Recorded ???Confirmed ???Type docusate sodium 100 mg capsule 100 mg PO DAILY PRN constipation 12/09/22 05/02/24 History fluorouracil 5 % topical cream 1 applic topical DAILY 12/09/22 05/02/24 History multivitamin 1 tab PO DAILY 12/09/22 05/02/24 History magnesium 200 mg tablet 200 mg PO DAILY 09/02/23 05/02/24 History tamsulosin 0.4 mg capsule 0.8 mg PO QHS 09/02/23 05/02/24 History acetaminophen 500 mg tablet 1,000 mg (2 x 500 mg) PO Q8 #0 tabs 09/29/23 05/02/24 Rx aspirin 81 mg tablet,delayed 81 mg PO BIDCM #0 tabs 09/29/23 05/02/24 Rx release famotidine 20 mg tablet 20 mg PO DAILY #0 tabs 09/29/23 05/02/24 Rx hydroxyzine HCl 10 mg tablet 10 mg PO TID PRN for anxiety #90 05/02/24 05/02/24 Rx TABLETS sertraline 100 mg tablet 200 mg (2 x 100 mg) PO QHS #180 05/02/24 05/02/24 Rx tabs PFSH Medical History Chronic constipation Wears hearing aid Wears glasses Autistic behavior Anxiety Prostate disease Back pain OCD (obsessive compulsive disorder) Non-smoker History of stress test Intellectual disability Obsessive compulsive disorder Hearing problem History of emotional problems Bone fracture Arthritis Surgical History History of ankle surgery History of tonsillectomy History of colonoscopy History of left knee replacement History of total left hip replacement History of total right hip replacement History of nasal surgery Family History Other Arthritis Bowel disease Colon cancer Diabetes Heart disease High cholesterol Hypertension Osteoporosis Social History Smoking Status: Never smoker alcohol intake: current details: 3 to 4 a week substance use type: does not use what type of physical activity do you participate in: walking HPI History of Present Illness History provided by: patient HPI: Cyndee Hwakins is a 64 year old male who presents today for follow up evaluation. Presents today with sister. Reports that he continues to get flustered and jumps the gun quickly. Has not gone to [facility] but he feels like he has been busy going to appointments. Sister alludes to the fact that mother was not keen on the idea of patient going and therefore has largely maintained similar routine. Goes 3x per week at [facility] which does involve some mild socialization. Has been able to sleep at night. Parents health has been deteriorating. Has been having some worsening hearing in recent past as well. Denies SI HI or AVH. Review of Systems Constitutional Denies: fatigue Eyes Denies: change in vision or blurry vision Cardiovascular Denies: chest pain, palpitations or dyspnea Respiratory Denies: dyspnea, cough or wheezing Gastrointestinal Denies: abdominal pain, nausea, vomiting, diarrhea or constipation Genitourinary Denies: dysuria or urinary frequency Musculoskeletal Reports: joint pain (Has been improving since knee replacement) and other (stiffness, arthritis ); Denies: back pain or muscle weakness Integumentary/Breast Reports: pruritus and other (dryness ); Denies: rash or new lesions Neurological Reports: headache(s); Denies: dizziness or confusion Endocrine Denies: fatigue or excessive sweating Hematologic/Lymphatic Denies: easy bruising or easy bleeding Allergic/Immunologic Denies: wheezing Exam Mental Status Exam - Psych Appearance adequately groomed Attitude cooperative and pleasant Activity/Motor Behavior MSE activity/motor behavior finding no adventitious movements Speech regular rate, regular prosody and loud Mood OK Affect congruent Thought Process linear, logical and coherent Thought Content no delusions and no hallucinations Suicidal Ideation none Homicidal Ideation none Attention intact Concentration intact Sensorium/Orientation awake, alert and oriented x3 Memory/Cognition impaired (Likely below expected for given age) Insight questionable (more content not included)... Normal [facility] XR HAND MINIMUM 3 VIEWS CRISTINA Pal 02-15-2024 XR HAND MINIMUM 3 VIEWS RIGHT ORIGINAL EXAMINATION: THREE XRAY VIEWS OF THE RIGHT HAND02/14/2024 11:01 am COMPARISON: July 07, 2023 HISTORY: ORDERING SYSTEM PROVIDED HISTORY: Reason for Exam: PAIN FINDINGS: No acute fracture or dislocation is identified. Osteoarthritic changes of the hand and wrist not significantly different from prior radiographs from July 07, 2023. There may be some minimal marginal erosive changes about the distal interphalangeal joints there are minute radiopaque foreign bodies within the anterior soft tissues of the 3rd 4th and 5th fingers which are unchanged from prior radiograph. Small cysts seen in the carpal bones. IMPRESSION: No acute fracture or dislocation. Punctate calcifications or other radiodense bodies in the 3rd through 5th digits, unchanged. Osteoarthritic changes of the hand and similar to the prior. There are questionable mild superimposed synovial inflammatory arthropathy changes. I have personally reviewed the images of this examination and agree with the resident's findings and interpretation. Interpreted by: Santosh Pickett MD Preliminary Report By: Sanjay Hernandes MD Electronically signed By Santosh Pickett MD Dictated Date: 02/15/2024 8:25:16 AM Prelim Date: 02/15/2024 9:50:15 AM Sign Date: 02/15/2024 9:50:15 AM Ordering Provider: FELIZ ALEXANDER [facility] MR/BMS.BPon 01-26-2024 MR/BMS.BP [facility] [address], [address] [place] [address] OFFICE VISIT Date of Service: 01/26/24 MR#: [id number] Acct: [id number] Name: CYNDEE HAWKINS Rep #: [id number] : 1960 Provider: Dr. 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 Accompanied by: Parents Is patient in pain?: No Allergies No Known Allergies Allergy (Verified 01/26/24 11:49) Medications ???Medication ???Instructions ???Recorded ???Confirmed ???Type docusate sodium 100 mg capsule 100 mg PO DAILY PRN constipation 12/09/22 01/26/24 History fluorouracil 5 % topical cream 1 applic topical DAILY 12/09/22 01/26/24 History multivitamin 1 tab PO DAILY 12/09/22 01/26/24 History magnesium 200 mg tablet 200 mg PO DAILY 09/02/23 01/26/24 History sennosides 8.6 mg-docusate sodium 1 tab-cap PO BID constipation 09/02/23 01/26/24 History 50 mg tablet (Senexon-S) tamsulosin 0.4 mg capsule 0.8 mg PO QHS 09/02/23 01/26/24 History gabapentin 300 mg capsule 600 mg PO TID 09/06/23 01/26/24 History polyethylene glycol 3350 17 17 g PO DAILY PRN constipation 09/26/23 01/26/24 History gram/dose oral powder acetaminophen 500 mg tablet 1,000 mg (2 x 500 mg) PO Q8 #0 tabs 09/29/23 01/26/24 Rx aspirin 81 mg tablet,delayed 81 mg PO BIDCM #0 tabs 09/29/23 01/26/24 Rx release docusate sodium 100 mg capsule 100 mg PO DAILY PRN constipation 09/29/23 01/26/24 Rx #0 caps famotidine 20 mg tablet 20 mg PO DAILY #0 tabs 09/29/23 01/26/24 Rx meloxicam 7.5 mg tablet 7.5 mg PO BID #0 tabs 09/29/23 01/26/24 Rx oxycodone 5 mg tablet 5 - 10 mg (1 - 2 x 5 mg) PO Q4H 09/29/23 01/26/24 Rx PRN PRN Pain Score 4-10 7 days #56 tabs hydroxyzine HCl 10 mg tablet 10 mg PO TID PRN for anxiety #90 01/26/24 01/26/24 Rx TABLETS sertraline 100 mg tablet 200 mg (2 x 100 mg) PO QHS #180 01/26/24 01/26/24 Rx tabs Current gender identity: male Nurse's Note: Presents to the office today for follow up. [facility] Medical History Chronic constipation Wears hearing aid Wears glasses Autistic behavior Anxiety Prostate disease Back pain OCD (obsessive compulsive disorder) Non-smoker History of stress test Intellectual disability Obsessive compulsive disorder Hearing problem History of emotional problems Bone fracture Arthritis Surgical History History of ankle surgery History of tonsillectomy History of colonoscopy History of left knee replacement History of total left hip replacement History of total right hip replacement History of nasal surgery Family History Other Arthritis Bowel disease Colon cancer Diabetes Heart disease High cholesterol Hypertension Osteoporosis Social History Smoking Status: Never smoker alcohol intake: current details: 3 to 4 a week substance use type: does not use what type of physical activity do you participate in: walking HPI History of Present Illness History provided by: patient HPI: Cyndee Hawkins is a 63 year old male who presents today for follow up evaluation. Presents today with mom and dad. Patient reports that things have been fair. Reports that he sometimes gets sad and jumps ahead of myself. Also describes feeling somewhat anxious at times as well. Reports to feeling somewhat impatient. Gives example of if something is wrong, he wants to have it done right. Has been trying to control anger as best as possible. Happens about once per week. Sleep has been pretty good, but does have some finger pain which limits to ability to sleep. Will be seeing Dr. Quesada in near future to evaluate. Has been looking in to a Dayhab program at some point in the future. Will hopefully be going in the near future. Is taking hydroxyzine intermittently, but unsure if beneficial. Continues to take sertraline regularly. Denies any significant side effects from medications. Review of Systems Constitutional Denies: fatigue Eyes Denies: change in vision or blurry vision Cardiovascular Denies: chest pain, palpitations or dyspnea Respiratory Denies: dyspnea, cough or wheezing Gastrointestinal Denies: abdominal pain, nausea, vomiting, diarrhea or constipation Genitourinary Denies: dysuria or urinary frequency Musculoskeletal Reports: joint pain (Has been improving since knee replacement) and other (stif (more content not included)... Normal [facility] .Auto Diffon 08-18-2023 Basophil, Absolute 0.0 10 3/mcL Normal 0.0-0.2 [facility] ([place]) Comment on above: Performed By: #### A CASSANDRA, CBC, GFR, A1C, CMP, ADIFF #### [address] [address] Basophils/100 WBC (Bld) 1.0 % Normal 0.0-2.5 [facility] ([place]) Comment on above: Performed By: #### A CASSANDRA, CBC, GFR, A1C, CMP, ADIFF #### [address] [address] Eosinophil, Absolute 0.2 10 3/mcL Normal 0.0-0.4 [facility] ([place]) Comment on above: Performed By: #### A CASSANDRA, CBC, GFR, A1C, CMP, ADIFF #### [address] [address] Eosinophils/100 WBC (Bld) 4.1 % Normal 0.0-7.0 [facility] ([place]) Comment on above: Performed By: #### A CASSANDRA, CBC, GFR, A1C, CMP, ADIFF #### [address] [address] Lymphocyte, Absolute 0.9 10 3/mcL Normal 0.8-3.9 [facility] ([place]) Comment on above: Performed By: #### A CASSANDRA, CBC, GFR, A1C, CMP, ADIFF #### [address] [address] Lymphocytes/100 WBC (Bld) 22.2 % Normal 10.0-50.0 [facility] ([place]) Comment on above: Performed By: #### A CASSANDRA, CBC, GFR, A1C, CMP, ADIFF #### [address] [address] Monocyte, Absolute 0.5 10 3/mcL Normal 0.2-1.0 [facility] ([place]) Comment on above: Performed By: #### A CASSANDRA, CBC, GFR, A1C, CMP, ADIFF #### [address] [address] Monocytes/100 WBC (Bld) 11.8 % Normal 1.7-13.0 [facility] ([place]) Comment on above: Performed By: #### A CASSANDRA, CBC, GFR, A1C, CMP, ADIFF #### [address] [address] Neutrophils/100 WBC (Bld) 60.9 % Normal 37.0-80.0 [facility] ([place]) Comment on above: Performed By: #### A CASSANDRA, CBC, GFR, A1C, CMP, ADIFF #### [address] [address] .GFRon 08-18-2023 GFR Non- 95 ml/min/1.73sqm Normal [facility] ([place]) Comment on above: Result Comment: GFR Population mean for , Non- Americans Ages 20-29 = 116 mL/min/1.73 sq.m. Ages 30-39 = 107 mL/min/1.73 sq.m. Ages 40-49 = 99 mL/min/1.73 sq.m. Ages 50-59 = 93 mL/min/1.73 sq.m. Ages 60-69 = 85 mL/min/1.73 sq.m. Ages 70+ = 75 mL/min/1.73 sq.m. Chronic Kidney Disease: Less than 60 mL/min/1.73 square meters End Stage Renal Disease: Less than 15 mL/min/1.73 square meters Performed By: #### A CASSANDRA, CBC, GFR, A1C, CMP, ADIFF #### [address] [address] GFR 115 ml/min/1.73sqm Normal [facility] ([place]) Comment on above: Result Comment: GFR Population mean for , Non- Americans Ages 20-29 = 116 mL/min/1.73 sq.m. Ages 30-39 = 107 mL/min/1.73 sq.m. Ages 40-49 = 99 mL/min/1.73 sq.m. Ages 50-59 = 93 mL/min/1.73 sq.m. Ages 60-69 = 85 mL/min/1.73 sq.m. Ages 70+ = 75 mL/min/1.73 sq.m. Chronic Kidney Disease: Less than 60 mL/min/1.73 square meters End Stage Renal Disease: Less than 15 mL/min/1.73 square meters Performed By: #### A CASSANDRA, CBC, GFR, A1C, CMP, ADIFF #### [address] [address] .NEUABSon 08-18-2023 Neutrophil, Absolute 2.4 10 3/mcL Low 2.9-6.2 [facility] ([place]) Comment on above: Performed By: #### A CASSANDRA, CBC, GFR, A1C, CMP, ADIFF #### [address] [address] A1Con 08-18-2023 HbA1c (Bld) [Mass fraction] 5.3 % Normal 4.3-6.4 [facility] ([place]) Comment on above: Performed By: #### A CASSANDRA, CBC, GFR, A1C, CMP, ADIFF #### [address] [address] CBCon 08-18-2023 Erythrocyte distribution width (RBC) [Ratio] 14.3 % Normal 11.5-14.5 [facility] ([place]) Comment on above: Order Comment: nedra Li F: [phone] Performed By: #### A CASSANDRA, CBC, GFR, A1C, CMP, ADIFF #### [address] [address] Hematocrit (Bld) [Volume fraction] 42.9 % Normal 42.0-52.0 [facility] ([place]) Comment on above: Order Comment: nedra Li F: [phone] Performed By: #### A CASSANDRA, CBC, GFR, A1C, CMP, ADIFF #### [address] [address] Hgb 15.1 G/dL Normal 14.0-18.0 [facility] ([place]) Comment on above: Order Comment: nedra hinton to Dr. Jay Jay Li F: [phone] Performed By: #### A CASSANDRA, CBC, GFR, A1C, CMP, ADIFF #### [address] [address] MCH (RBC) [Entitic mass] 32.1 pg High 27.0-31.2 [facility] ([place]) Comment on above: Order Comment: nedra Li F: [phone] Performed By: #### A CASSANDRA, CBC, GFR, A1C, CMP, ADIFF #### [address] [address] MCHC 35.3 G/dL Normal 31.8-35.4 [facility] ([place]) Comment on above: Order Comment: nedra Li F: [phone] Performed By: #### A CASSANDRA, CBC, GFR, A1C, CMP, ADIFF #### [address] [address] MCV (RBC) [Entitic vol] 90.9 fL Normal 80.0-94.0 [facility] ([place]) Comment on above: Order Comment: nedra Li F: [phone] Performed By: #### A CASSANDRA, CBC, GFR, A1C, CMP, ADIFF #### [address] [address] Platelet 181 10 3/mcL Normal 130-400 [facility] ([place]) Comment on above: Order Comment: nedra Li F: [phone] Performed By: #### A CASSANDRA, CBC, GFR, A1C, CMP, ADIFF #### [address] [address] Platelet mean volume (Bld) [Entitic vol] 6.7 fL Low 7.4-10.4 [facility] ([place]) Comment on above: Order Comment: cc ronnie hinton to Dr. Jay Jay Li F: [phone] Performed By: #### A CASSANDRA, CBC, GFR, A1C, CMP, ADIFF #### [address] [address] RBC 4.71 10 6/mcL Normal 4.04-6.13 [facility] ([place]) Comment on above: Order Comment: cc ronnie kelseyts to Dr. Jay Jay Li F: [phone] Performed By: #### A CASSANDRA, CBC, GFR, A1C, CMP, ADIFF #### [place] [address] [address] WBC 4.0 10 3/mcL Low 4.6-10.8 [facility] ([place]) Comment on above: Order Comment: nedra hinton to Dr. Jay Jay Li F: [phone] Performed By: #### A CASSANDRA, CBC, GFR, A1C, CMP, ADIFF #### [address] [address] CMPon 08-18-2023 Albumin Level 3.9 G/dL Normal 3.4-4.8 [facility] ([place]) Comment on above: Order Comment: nedra hinton to Dr. Jay Jay Li F: [phone] Performed By: #### A CASSANDRA, CBC, GFR, A1C, CMP, ADIFF #### [address] [address] Albumin/Globulin [Mass ratio] 1.3 {ratio} Normal 1.1-2.5 [facility] ([place]) Comment on above: Order Comment: nedra hinton to Dr. Jay Jay Li F: [phone] Performed By: #### A CASSANDRA, CBC, GFR, A1C, CMP, ADIFF #### [address] [address] ALP [Catalytic activity/Vol] 105 U/L Normal 40-135 [facility] ([place]) Comment on above: Order Comment: nedra hinton to Dr. Jay Jay Li F: [phone] Performed By: #### A CASSANDRA, CBC, GFR, A1C, CMP, ADIFF #### [address] [address] ALT [Catalytic activity/Vol] 29 U/L Normal 16-63 [facility] ([place]) Comment on above: Order Comment: nedra hinton to Dr. Jay Jay Li F: [phone] Performed By: #### A CASSANDRA, CBC, GFR, A1C, CMP, ADIFF #### [address] [address] AST [Catalytic activity/Vol] 23 U/L Normal 10-40 [facility] ([place]) Comment on above: Order Comment: nedra hinton to Dr. Jay Jay Li F: [phone] Performed By: #### A CASSANDRA, CBC, GFR, A1C, CMP, ADIFF #### [address] [address] Bili Total 0.4 mg/dL Normal 0.2-1.0 [facility] ([place]) Comment on above: Order Comment: nedra hinton to Dr. Jay Jay Li F: [phone] Result Comment: Use of this assay is not recommended for patients undergoing treatment with eltrombopag due to the potential for falsely elevated results. Performed By: #### A CASSANDRA, CBC, GFR, A1C, CMP, ADIFF #### [address] [address] BUN/Creatinine Ratio 23 ratio Normal 7-27 [facility] ([place]) Comment on above: Order Comment: nedra hinton to Dr. Jay Jay Li F: [phone] Performed By: #### A CASSANDRA, CBC, GFR, A1C, CMP, ADIFF #### [address] [address] Calcium [Mass/Vol] 8.8 mg/dL Normal 8.4-10.2 [facility] ([place]) Comment on above: Order Comment: nedra hinton to Dr. Jay Jay Li F: [phone] Performed By: #### A CASSANDRA, CBC, GFR, A1C, CMP, ADIFF #### [address] [address] Chloride [Moles/Vol] 105 mmol/L Normal 98-107 [facility] ([place]) Comment on above: Order Comment: nedra hinton to Dr. Jay Jay Li F: [phone] Performed By: #### A CASSANDRA, CBC, GFR, A1C, CMP, ADIFF #### [address] [address] CO2 [Moles/Vol] 27 mmol/L Normal 23-31 [facility] ([place]) Comment on above: Order Comment: nedra hinton to Dr. Jay Jay Li F: [phone] Performed By: #### A CASSANDRA, CBC, GFR, A1C, CMP, ADIFF #### [place] [id number] Creatinine [Mass/Vol] 0.82 mg/dL Normal 0.70-1.30 [facility] ([place]) Comment on above: Order Comment: nedra hinton to Dr. Jay Jay Li F: [phone] Performed By: #### A CASSANDRA, CBC, GFR, A1C, CMP, ADIFF #### [address] [address] Electrolyte Balance 7.0 mEq/L Normal 4.0-15.0 [facility] ([place]) Comment on above: Order Comment: nedra hinton to Dr. Jay Jay Li F: [phone] Performed By: #### A CASSANDRA, CBC, GFR, A1C, CMP, ADIFF #### [address] [address] Globulin 3.0 G/dL Normal [facility] ([place]) Comment on above: Order Comment: nedra hinton to Dr. Jay Jay Li F: [phone] Performed By: #### A CASSANDRA, CBC, GFR, A1C, CMP, ADIFF #### [place] [id number] Glucose [Mass/Vol] 108 mg/dL Normal 80-115 [facility] ([place]) Comment on above: Order Comment: nedra hinton to Dr. Jay Jay Li F: [phone] Performed By: #### A CASSANDRA, CBC, GFR, A1C, CMP, ADIFF #### [address] [address] Potassium [Moles/Vol] 4.4 mmol/L Normal 3.5-5.1 Formerly [facility] ([place]) Comment on above: Order Comment: nedra hinton to Dr. Jay Jay Li F: [phone] Performed By: #### A CASSANDRA, CBC, GFR, A1C, CMP, ADIFF #### [address] [address] Sodium [Moles/Vol] 139 mmol/L Normal 136-145 [facility] ([place]) Comment on above: Order Comment: nedra hinton to Dr. Jay Jay Li F: [phone] Performed By: #### A CASSANDRA, CBC, GFR, A1C, CMP, ADIFF #### [address] [address] Total Protein 6.9 G/dL Normal 6.4-8.2 [facility] ([place]) Comment on above: Order Comment: nedra hinton to Dr. Jay Jay Li F: [phone] Performed By: #### A CASSANDRA, CBC, GFR, A1C, CMP, ADIFF #### [address] [address] Urea nitrogen [Mass/Vol] 19 mg/dL High 7-18 [facility] ([place]) Comment on above: Order Comment: nedra hinton to Dr. Jay Jay Li F: [phone] Performed By: #### A CASSANDRA, CBC, GFR, A1C, CMP, ADIFF #### [address] [address] LABORATORYOrdered By: SYSTEM SYSTEM on 08-18-2023 Albumin BCP dye [Mass/Vol] 3.9 G/dL Normal 3.4 - 4.8 G/dL AO ADM SS Albumin/Globulin [Mass ratio] 1.3 {ratio} Normal 1.1 - 2.5 ratio AO ADM SS ALP [Catalytic activity/Vol] 105 U/L Normal 40 - 135 U/L AO ADM SS ALT With P-5'-P [Catalytic activity/Vol] 29 U/L Normal 16 - 63 U/L AO ADM SS AST With P-5'-P [Catalytic activity/Vol] 23 U/L Normal 10 - 40 U/L AO ADM SS Basophil, Absolute 0.0 103/mcL Normal 0.0 - 0.2 10^3/mcL AO Workflow SS Basophils/100 WBC (Bld) 1.0 % Normal 0.0 - 2.5 % AO Workflow SS Bilirubin [Mass/Vol] 0.4 mg/dL Normal 0.2 - 1 .0 mg/dL AO ADM SS Comment on above: Interpretive Data: U se of this assay is not recommended for patients undergoing treatment with eltrombopag due to the potential for falsely elevated results. Calcium [Mass/Vol] 8.8 mg/dL Normal 8.4 - 10. 2 mg/dL AO ADM SS Chloride [Moles/Vol] 105 mmol/L Normal 98 - 10 7 mmol/L AO ADM SS CO2 [Moles/Vol] 27 mmol/L Normal 23 - 31 mmol/L AO ADM SS Creatinine [Mass/Vol] 0.82 mg/dL Normal 0.70 - 1.30 mg/dL AO ADM SS Electrolyte Balance 7.0 mEq/L Normal 4.0 - 15 .0 mEq/L AO ADM SS Eosinophil, Absolute 0.2 103/mcL Normal 0.0 - 0 .4 10^3/mcL AO Workflow SS Eosinophils/100 WBC (Bld) 4.1 % Normal 0.0 - 7.0 % AO Workflow SS Erythrocyte distribution width (RBC) [Ratio] 14.3 % Normal 11.5 - 14.5 % AO Workflow SS GFR/1.73 sq M.predicted among blacks MDRD (S/P/Bld) [Vol rate/Area] 115 ml/min/1.73sqm Invalid Interpretation Code AO Chemistry S Comment on above: Interpretive Data: GFR Population mean for , Non- Americans Ages 20-29 = 116 mL/min/1.73 sq.m. Ages 30-39 = 107 mL/min/1.73 sq.m. Ages 40-49 = 99 mL/min/1.73 sq.m. Ages 50-59 = 93 mL/min/1.73 sq.m. Ages 60-69 = 85 mL/min/1.73 sq.m. Ages 70+ = 75 mL/min/1.73 sq.m. Chronic Kidney Disease: Less than 60 mL/min/1.73 square meters End Stage Renal Disease: Less than 15 mL/min/1.73 square meters GFR/1.73 sq M.predicted among non-blacks MDRD (S/P/Bld) [Vol rate/Area] 95 ml/min/1.73sqm Invalid Interpretation Code AO Chemistry S Comment on above: Interpretive Data: GFR Population mean for , Non- Americans Ages 20-29 = 116 mL/min/1.73 sq.m. Ages 30-39 = 107 mL/min/1.73 sq.m. Ages 40-49 = 99 mL/min/1.73 sq.m. Ages 50-59 = 93 mL/min/1.73 sq.m. Ages 60-69 = 85 mL/min/1.73 sq.m. Ages 70+ = 75 mL/min/1.73 sq.m. Chronic Kidney Disease: Less than 60 mL/min/1.73 square meters End Stage Renal Disease: Less than 15 mL/min/1.73 square meters Globulin 3.0 G/dL Invalid Interpretation Code AO ADM SS Glucose [Mass/Vol] 108 mg/dL Normal 80 - 115 mg/dL AO ADM SS HbA1c (Bld) [Mass fraction] 5.3 % Normal 4.3 - 6.4 % AO ADM SS Hematocrit (Bld) [Volume fraction] 42.9 % Normal 42.0 - 52.0 % AO Workflow SS Hemoglobin (Bld) [Mass/Vol] 15.1 G/dL Normal 14.0 - 18.0 G/dL AO Workflow SS Lymphocyte, Absolute 0.9 103/mcL Normal 0.8 - 3 .9 10^3/mcL AO Workflow SS Lymphocytes/100 WBC (Bld) 22.2 % Normal 10.0 - 50.0 % AO Workflow SS MCH (RBC) [Entitic mass] 32.1 pg High 27.0 - 31.2 pg AO Workflow SS MCHC 35.3 G/dL Normal 31.8 - 35.4 G/dL AO Workflow SS MCV (RBC) [Entitic vol] 90.9 fL Normal 80.0 - 94.0 fL AO Workflow SS Monocyte, Absolute 0.5 103/mcL Normal 0.2 - 1.0 10^3/mcL AO Workflow SS Monocytes/100 WBC (Bld) 11.8 % Normal 1.7 - 13.0 % AO Workflow SS Neutrophil, Absolute 2.4 103/mcL Low 2.9 - 6 .2 10^3/mcL AO Workflow SS Neutrophils/100 WBC (Bld) 60.9 % Normal 37.0 - 80.0 % AO Workflow SS Platelet mean volume (Bld) [Entitic vol] 6.7 fL Low 7.4 - 10.4 fL AO Workflow SS Platelets (Bld) [#/Vol] 181 103/mcL Normal 130 - 400 10^3/mcL AO Workflow SS Potassium [Moles/Vol] 4.4 mmol/L Normal 3.5 - 5.1 mmol/L AO ADM SS Protein [Mass/Vol] 6.9 G/dL Normal 6.4 - 8.2 G/dL AO ADM SS RBC (Bld) [#/Vol] 4.71 106/mcL Normal 4.04 - 6.1 3 10^6/mcL AO Workflow SS Sodium [Moles/Vol] 139 mmol/L Normal 136 - 145 mmol/L AO ADM SS Urea nitrogen [Mass/Vol] 19 mg/dL High 7 - 18 mg/dL AO ADM SS Urea nitrogen/Creatinine [Mass ratio] 23 ratio Normal 7 - 27 ratio AO ADM SS WBC (Bld) [#/Vol] 4.0 103/mcL Low 4.6 - 10.8 10^3/mcL AO Workflow SS XR HAND MINIMUM 3 VIEWS [facility] 07-08-2023 XR HAND MINIMUM 3 VIEWS RIGHT ORIGINAL EXAMINATION: THREE XRAY VIEWS OF THE RIGHT HAND 07/07/2023 12:17 pm COMPARISON: None. HISTORY: ORDERING SYSTEM PROVIDED HISTORY: Reason for Exam: right hand pain, pinky FINDINGS: The visualized joint spaces appear in anatomic alignment. No acute fracture, dislocation or radiopaque foreign bodies. There is mild narrowing of the interphalangeal joints of the phalanges and 1st carpometacarpal joint compatible with osteoarthritis. There is also mild degenerative arthrosis affecting the distal radioulnar joint. IMPRESSION: No acute osseous abnormality of the right hand. Mild osteoarthritic changes as above. Interpreted by: Mariano Addison MD Preliminary Report By: Mariano Addison MD Electronically signed By Mariano Addison MD Dictated Date: 07/08/2023 7:56:57 AM Prelim Date: 07/08/2023 7:57:46 AM Sign Date: 07/08/2023 7:57:46 AM Ordering Provider: ANNA VEGA [facility]) CT SPINE CERVICAL W/O CONTRA Wilma 06-28-2023 CT SPINE CERVICAL W/O CONTRAST ORIGINAL EXAMINATION: CT OF THE CERVICAL SPINE WITHOUT CONTRAST 06/28/2023 4:19 pm TECHNIQUE: CT of the cervical spine was performed without the administration of intravenous contrast. Multiplanar reformatted images are provided for review. Automated exposure control, iterative reconstruction, and/or weight based adjustment of the mA/kV was utilized to reduce the radiation dose to as low as reasonably achievable. COMPARISON: None. HISTORY: ORDERING SYSTEM PROVIDED HISTORY: Reason for Exam: neck pain Patient complains of left-sided neck pain, soft tissue around the base of the chin, fell 1 month ago, difficulty swallowing FINDINGS: BONES/ALIGNMENT: There is no acute fracture or traumatic malalignment. DEGENERATIVE CHANGES: Mild degenerative changes of the cervical spine including disc space narrowing, mild marginal osteophytes and facet arthropathy. Varying degrees of neural foraminal narrowing throughout the cervical spine, correlate any symptoms of radiculopathy. SOFT TISSUES: There is no prevertebral soft tissue swelling. IMPRESSION: No acute abnormality of the cervical spine. Additional incidental findings as above. I have reviewed the study and agree with the report. Wang Mendez M.D. Interpreted by: Wang Mendez Preliminary Report By: Juani Rice Electronically signed By Wang Mendez Dictated Date: 06/28/2023 4:39:29 PM Prelim Date: 06/28/2023 4:51:04 PM Sign Date: 06/28/2023 7:25:48 PM Ordering Provider: GINA HOWARD [facility]) BMP with eGFRon 03-01-2023 AGE 62 years Normal [facility] Comment on above: Performed By: #### 2 [id number] #### [facility],[address] [place] [address] Anion gap [Moles/Vol] 12 mmol/L Normal 10 - 20 [facility] Comment on above: Performed By: #### 2 85082 #### [facility],[address] [place] [address] BMP with eGFR Normal [facility] Comment on above: Result Comment: BASI C METABOLIC PANEL Performed By: #### 2 44746 #### [facility],[address] [place] [address] Calcium [Mass/Vol] 8.8 mg/dL Normal 8.5 - 10.1 [facility] Comment on above: Performed By: #### 2 38009 #### [facility],[address] [place], [place] [id number] Chloride [Moles/Vol] 105 mmol/L Normal 98 - 107 [facility] Comment on above: Performed By: #### 2 45833 #### [facility],[address] [place] [address] CO2 [Moles/Vol] 24.9 mmol/L Normal 21.0 - 32.0 [facility] Comment on above: Performed By: #### 2 61481 #### [facility],[address] [place] [address] Creatinine [Mass/Vol] 0.85 mg/dL Normal 0.70 - 1.30 [facility] Comment on above: Performed By: #### 2 12056 #### [facility],[address] [place] [address] GFR/1.73 sq M.predicted among non-blacks MDRD (S/P/Bld) [Vol rate/Area] mL/min/{1.73_m2} Normal 60 - 999 [facility] Comment on above: Performed By: #### 2 89615 #### [facility],[address] [place], [place] [id number] Result Comment: ACCO RDING TO THE NATIONAL KIDNEY DISEASE EDUCATION PROGRAM(NKDE), A NORMAL eGFR IS A VALUE GREATER THAN OR EQUAL TO 60 ML/MIN/1.73 SQ METERS. CHRONIC KIDNEY DISEASE: <60mL/MIN/1.73 SQ METERS KIDNEY FAILURE: <15mL/MIN/1.73 SQ METERS THIS TEST SHOULD ONLY BE USED FOR PATIENTS 18 YEARS OF AGE AND OLDER. Glucose [Mass/Vol] 125 mg/dL High 74 - 106 [facility] Comment on above: Performed By: #### 2 12465 #### [facility],[address] [place] [address] Potassium [Moles/Vol] 3.9 mmol/L Normal 3.5 - 5.1 [facility] Comment on above: Performed By: #### 2 11742 #### [facility],[address] [place] [address] Sodium [Moles/Vol] 138 mmol/L Normal 136 - 145 [facility] Comment on above: Performed By: #### 2 79634 #### [facility],[address] [place] [address] Urea nitrogen [Mass/Vol] 10 mg/dL Normal 7 - 18 [facility] Comment on above: Performed By: #### 2 09808 #### [facility],[address] [place] [address] CBC + DIFFon 03-01-2023 Baso # 0.00 x10EE3/UL Normal 0.00 - 0.10 [facility] Comment on above: Performed By: #### 2 03982 #### [facility],[address] [place] [address] Basophils/100 WBC (Bld) 0.0 % Normal 0.0 - 2.0 [facility] Comment on above: Performed By: #### 2 99251 #### [facility],[address] [place] [address] CBC + DIFF Normal [facility] Comment on above: Result Comment: CBC- COMPLETE BLOOD COUNT Performed By: #### 2 95341 #### [facility],[address] [place] [address] EO # 0.00 x10EE3/UL Normal 0.00 - 0.50 [facility] Comment on above: Performed By: #### 2 70105 #### [facility],[address] [place] [address] Eosinophils/100 WBC (Bld) 0.0 % Normal 0.0 - 7.0 [facility] Comment on above: Performed By: #### 2 09282 #### [facility],[address] [place] [address] Erythrocyte distribution width (RBC) [Ratio] 13.1 % Normal 12.0 - 15.6 [facility] Comment on above: Performed By: #### 2 95697 #### [facility],[address] [place] [address] Hematocrit (Bld) [Volume fraction] 41.5 % Normal 40.0 - 52.0 [facility] Comment on above: Performed By: #### 2 04093 #### [facility],[address] [place] [address] Hemoglobin (Bld) [Mass/Vol] 14.0 g/dL Normal 13.0 - 17.5 [facility] Comment on above: Performed By: #### 2 52495 #### [facility],[address] [place] [address] Lymph # 0.30 x10EE3/UL Low 0.80 - 2.80 [facility] Comment on above: Performed By: #### 2 25491 #### [facility],[address] [place] [address] Lymphocytes/100 WBC (Bld) 2.9 % Low 20.0 - 45.0 [facility] Comment on above: Performed By: #### 2 71310 #### [facility],[address] [place], [place] [phone] MANUAL DIFF N/A Normal [facility] Comment on above: Performed By: #### 2 02995 #### [facility],[address] [place] [address] MCH (RBC) [Entitic mass] 32 pg Normal 27 - 33 [facility] Comment on above: Performed By: #### 2 06145 #### [facility],[address] [place] [address] MCHC 34 X10 3 Normal 32 - 36 [facility] Comment on above: Performed By: #### 2 88841 #### [facility],[address] [place] [address] MCV (RBC) [Entitic vol] 96 fL Normal 81 - 98 [facility] Comment on above: Performed By: #### 2 51417 #### [facility],[address] [place] [address] Peñuelas # 0.70 x10EE3/UL Normal 0.20 - 1.00 [facility] Comment on above: Performed By: #### 2 19204 #### [facility],[address] [place] [address] MONOS % 6.3 % Normal 0.0 - 10.0 [facility] Comment on above: Performed By: #### 2 39303 #### [facility],[address] [place] [address] Morphology Colten (Bld) [Interp] N/A Normal [facility] Comment on above: Result Comment: {CD] Performed By: #### 2 37323 #### [facility],[address] [place] [address] Neut # 9.70 x10EE3/UL High 1.50 - 7.10 [facility] Comment on above: Performed By: #### 2 62952 #### [facility],[address] [place] [address] Neutrophils/100 WBC (Bld) 90.8 % High 46.0 - 76.0 [facility] Comment on above: Performed By: #### 2 55897 #### [facility],[address] [place] [address] PLATELET 225 x10EE3/UL Normal 150 - 450 [facility] Comment on above: Performed By: #### 2 65396 #### [facility],[address] [place] [address] Platelet mean volume (Bld) [Entitic vol] 7.1 fL Normal 6.4 - 10.5 [facility] Comment on above: Result Comment: AUTO MATED DIFFERENTIAL Performed By: #### 2 55865 #### [facility],[address] [place] [address] RBC 4.34 x 10EE6/UL Low 4.50 - 6.00 [facility] Comment on above: Performed By: #### 2 09940 #### [facility],[address] [place] [address] WBC 10.7 x 10EE3/UL Normal 4.5 - 10.8 [facility] Comment on above: Performed By: #### 2 49232 #### [facility],[address] [place] [address] KNEE 2 VIEWS LTon 02-28-2023 KNEE [address] [address] Patient: SREEDHAR HAWKINS Phone#: : 1960 Age: 62 Gender: M Pt. Type: Out Account: [id number] Location: [facility] Ordering: JAY JAY LI Exam Date: 02/28/2023/17:41 Family Phys: JAIME ROACH Charge Code: 823104 Physician: Sandoval Order #: [id number] Dose#: PROCEDURE: X-RAY KNEE LT 2 VIEWS COMPARISON: None. INDICATIONS: Post op. FINDINGS: BONES: Left knee arthroplasty with femoral and tibial hardware components. There is hardware at the undersurface of the patella. SOFT TISSUES: Expected postoperative air in the soft tissues. Cutaneous naun are present. EFFUSION: None visible. OTHER: Negative. CONCLUSION: 1. Expected postoperative changes of left knee arthroplasty. Dictated by: Radha Coon MD on 02/28/2023 at 18:16 Approved by: Radha Coon MD on 02/28/2023 at 18:18 Normal [facility] NM MYOCARDIAL SPECT STRESS/R ESTon 02-25-2023 NM MYOCARDIAL SPECT STRESS/REST ORIGINAL NM MYOCARDIAL SPECT STRESS/REST CLINICAL STATEMENT: preop, abnormal EKG with RBBB, cannot ambulate on treadmill TECHNIQUE: Lexiscan dose:0.4 mg Radiopharmaceutical (stress): Tc-99m Sestamibi Dose:30.2 mCi Radiopharmaceutical (rest): Tc-99m Sestamibi Dose:10.3 mCi SPECT acquisition and processing Reconstruction and reorientation of SPECT images into short axis, vertical and horizontal long axis planes Quantitative LVEF assessment COMPARISON:None REPORT: Poststress myocardial perfusion images showed relatively uniform distribution throughout all myocardium Resting images showed similar perfusion, significant GI uptake was noted at inferior wall LVEF 69% with normal wall motion and wall thickening TID 0.93 IMPRESSION: Negative for ischemia or infarct imaging part of the stress test Significant GI uptake was noted at the inferior wall affecting image interpretation LVEF 69% with normal wall motion Interpreted By: Diogenes Blackwood Preliminary Report By: Diogenes Blackwood Electronically Signed By: Diogenes Blackwood Dictated Date: 02/25/2023 10:25:21 AM Prelim Date: 02/25/2023 10:25:21 AM Sign Date: 02/25/2023 10:28:14 AM Ordering Provider:Anna Carias [facility] ([place]) .Auto Diffon 02-16-2023 Basophil, Absolute 0.0 10 3/mcL Normal 0.0-0.2 [facility] ([place]) Comment on above: Performed By: #### C MP, A1C, GFR, ANEU, ADIFF, CBC #### [facility] [place] [address], [place] [address] Basophils/100 WBC (Bld) 0.6 % Normal 0.0-2.5 [facility] ([place]) Comment on above: Performed By: #### C MP, A1C, GFR, ANEU, ADIFF, CBC #### [address] [address] Eosinophil, Absolute 0.1 10 3/mcL Normal 0.0-0.4 [facility] ([place]) Comment on above: Performed By: #### C MP, A1C, GFR, ANEU, ADIFF, CBC #### [address] [address] Eosinophils/100 WBC (Bld) 1.6 % Normal 0.0-7.0 [facility] ([place]) Comment on above: Performed By: #### C MP, A1C, GFR, ANEU, ADIFF, CBC #### [address] [address] Lymphocyte, Absolute 1.1 10 3/mcL Normal 0.8-3.9 [facility] ([place]) Comment on above: Performed By: #### C MP, A1C, GFR, ANEU, ADIFF, CBC #### [address] [address] Lymphocytes/100 WBC (Bld) 19.1 % Normal 10.0-50.0 [facility] ([place]) Comment on above: Performed By: #### C MP, A1C, GFR, ANEU, ADIFF, CBC #### [address] [address] Monocyte, Absolute 0.5 10 3/mcL Normal 0.2-1.0 [facility] ([place]) Comment on above: Performed By: #### C MP, A1C, GFR, ANEU, ADIFF, CBC #### [address] [address] Monocytes/100 WBC (Bld) 8.9 % Normal 1.7-13.0 [facility] ([place]) Comment on above: Performed By: #### C MP, A1C, GFR, ANEU, ADIFF, CBC #### [address] [address] Neutrophils/100 WBC (Bld) 69.8 % Normal 37.0-80.0 [facility] ([place]) Comment on above: Performed By: #### C MP, A1C, GFR, ANEU, ADIFF, CBC #### [address] [address] .GFRon 02-16-2023 GFR 117 ml/min/1.73sqm Normal [facility] ([place]) Comment on above: Result Comment: GFR Population mean for , Non- Americans Ages 20-29 = 116 mL/min/1.73 sq.m. Ages 30-39 = 107 mL/min/1.73 sq.m. Ages 40-49 = 99 mL/min/1.73 sq.m. Ages 50-59 = 93 mL/min/1.73 sq.m. Ages 60-69 = 85 mL/min/1.73 sq.m. Ages 70+ = 75 mL/min/1.73 sq.m. Chronic Kidney Disease: Less than 60 mL/min/1.73 square meters End Stage Renal Disease: Less than 15 mL/min/1.73 square meters Performed By: #### A CASSANDRA, CBC, GFR, A1C, CMP, ADIFF #### [address] [address] GFR Non- 97 ml/min/1.73sqm Normal [facility] ([place]) Comment on above: Result Comment: GFR Population mean for , Non- Americans Ages 20-29 = 116 mL/min/1.73 sq.m. Ages 30-39 = 107 mL/min/1.73 sq.m. Ages 40-49 = 99 mL/min/1.73 sq.m. Ages 50-59 = 93 mL/min/1.73 sq.m. Ages 60-69 = 85 mL/min/1.73 sq.m. Ages 70+ = 75 mL/min/1.73 sq.m. Chronic Kidney Disease: Less than 60 mL/min/1.73 square meters End Stage Renal Disease: Less than 15 mL/min/1.73 square meters Performed By: #### A CASSANDRA, CBC, GFR, A1C, CMP, ADIFF #### [address] [address] .NEUABSon 02-16-2023 Neutrophil, Absolute 4.0 10 3/mcL Normal 2.9-6.2 [facility] ([place]) Comment on above: Performed By: #### C MP, A1C, GFR, ANEU, ADIFF, CBC #### [place] [id number] A1Con 02-16-2023 HbA1c (Bld) [Mass fraction] 5.4 % Normal 4.3-6.4 [facility] ([place]) Comment on above: Order Comment: nedra hinton to Dr. Jay Jay Li F: [phone] Performed By: #### A CASSANDRA, CBC, GFR, A1C, CMP, ADIFF #### [place] [address] CBCon 02-16-2023 Erythrocyte distribution width (RBC) [Ratio] 13.3 % Normal 11.5-14.5 [facility] ([place]) Comment on above: Order Comment: nedra hinton to Dr. Jay Jay Li Performed By: #### C MP, A1C, GFR, ANEU, ADIFF, CBC #### [place] [address] Hematocrit (Bld) [Volume fraction] 42.8 % Normal 42.0-52.0 [facility] ([place]) Comment on above: Order Comment: nedra hinton to Dr. Jay Jay Li Performed By: #### C MP, A1C, GFR, ANEU, ADIFF, CBC #### [place] [address] Hgb 14.8 G/dL Normal 14.0-18.0 [facility] ([place]) Comment on above: Order Comment: nedra hinton to Dr. Jay Jay Li Performed By: #### C MP, A1C, GFR, ANEU, ADIFF, CBC #### [place] [address] MCH (RBC) [Entitic mass] 32.7 pg High 27.0-31.2 [facility] ([place]) Comment on above: Order Comment: nedra Li Performed By: #### C MP, A1C, GFR, ANEU, ADIFF, CBC #### [address] [address] MCHC 34.5 G/dL Normal 31.8-35.4 [facility] ([place]) Comment on above: Order Comment: cc ronnie sults to Dr. Jay Jay Li Performed By: #### C MP, A1C, GFR, ANEU, ADIFF, CBC #### [address] [address] MCV (RBC) [Entitic vol] 94.8 fL High 80.0-94.0 [facility] ([place]) Comment on above: Order Comment: cc re sults to Dr. Jay Jay Li Performed By: #### C MP, A1C, GFR, ANEU, ADIFF, CBC #### [place] [id number] Platelet 210 10 3/mcL Normal 130-400 [facility] ([place]) Comment on above: Order Comment: cc re sults to Dr. Jay Jay Li Performed By: #### C MP, A1C, GFR, ANEU, ADIFF, CBC #### [address] [address] Platelet mean volume (Bld) [Entitic vol] 7.4 fL Normal 7.4-10.4 [facility] ([place]) Comment on above: Order Comment: cc ronnie sults to Dr. Jay Jay Li Performed By: #### C MP, A1C, GFR, ANEU, ADIFF, CBC #### [address] [address] RBC 4.51 10 6/mcL Normal 4.04-6.13 [facility] ([place] Comment on above: Order Comment: cc re sults to Dr. Jay Jay Li Performed By: #### C MP, A1C, GFR, ANEU, ADIFF, CBC #### [place] [id number] WBC 5.7 10 3/mcL Normal 4.6-10.8 [facility] ([place] Comment on above: Order Comment: cc re sults to Dr. Jay Jay Li Performed By: #### C MP, A1C, GFR, ANEU, ADIFF, CBC #### [address] [address] CMPon 02-16-2023 Albumin Level 4.4 G/dL Normal 3.4-4.8 [facility] ([place]) Comment on above: Order Comment: nedra hinton to Dr. Jay Jay Li F: [phone] Performed By: #### A CASSANDRA, CBC, GFR, A1C, CMP, ADIFF #### [address] [address] Albumin/Globulin [Mass ratio] 1.3 {ratio} Normal 1.1-2.5 [facility] ([place]) Comment on above: Order Comment: nedra hinton to Dr. Jay Jay Li F: [phone] Performed By: #### A CASSANDRA, CBC, GFR, A1C, CMP, ADIFF #### [address] [address] ALP [Catalytic activity/Vol] 90 U/L Normal 40-135 [facility] ([place]) Comment on above: Order Comment: nedra hinton to Dr. aJy Jay Li F: [phone] Performed By: #### A CASSANDRA, CBC, GFR, A1C, CMP, ADIFF #### [address] [address] ALT [Catalytic activity/Vol] 26 U/L Normal 16-63 [facility] ([place]) Comment on above: Order Comment: nedra hinton to Dr. Jay Jay Li F: [phone] Performed By: #### A CASSANDRA, CBC, GFR, A1C, CMP, ADIFF #### [address] [address] AST [Catalytic activity/Vol] 21 U/L Normal 10-40 [facility] ([place]) Comment on above: Order Comment: nedra hinton to Dr. Jay Jay Li F: [phone] Performed By: #### A CASSANDRA, CBC, GFR, A1C, CMP, ADIFF #### [address] [address] Bili Total 0.6 mg/dL Normal 0.2-1.0 [facility] ([place]) Comment on above: Order Comment: nedra hinton to Dr. Jay Jay Li F: [phone] Result Comment: Use of this assay is not recommended for patients undergoing treatment with eltrombopag due to the potential for falsely elevated results. Performed By: #### A CASSANDRA, CBC, GFR, A1C, CMP, ADIFF #### [address] [address] BUN/Creatinine Ratio 25 ratio Normal 7-27 [facility] ([place]) Comment on above: Order Comment: nedra hinton to Dr. Jay Jay Li F: [phone] Performed By: #### A CASSANDRA, CBC, GFR, A1C, CMP, ADIFF #### [address] [address] Calcium [Mass/Vol] 9.1 mg/dL Normal 8.4-10.2 [facility] ([place]) Comment on above: Order Comment: nedra hinton to Dr. Jay Jay Li F: [phone] Performed By: #### A CASSANDRA, CBC, GFR, A1C, CMP, ADIFF #### [address] [address] Chloride [Moles/Vol] 106 mmol/L Normal 98-107 [facility]ly [facility], [facility] ([place]) Comment on above: Order Comment: nedra hinton to Dr. Jay Jay Li F: [phone] Performed By: #### A CASSANDRA, CBC, GFR, A1C, CMP, ADIFF #### [address] [address] CO2 [Moles/Vol] 28 mmol/L Normal 23-31 [facility]ly [facility] ([place]) Comment on above: Order Comment: nedra Li F: [phone] Performed By: #### A CASSANDRA, CBC, GFR, A1C, CMP, ADIFF #### [address] [address] Creatinine [Mass/Vol] 0.81 mg/dL Normal 0.70-1.30 [facility] ([place]) Comment on above: Order Comment: nedra kelseyts to Dr. Jay Jay Li F: Performed By: #### A CASSANDRA, CBC, GFR, A1C, CMP, ADIFF #### [address] [address] Electrolyte Balance 10.0 mEq/L Normal 4.0-15.0 [facility] ([place]) Comment on above: Order Comment: nedra kelseyts to Dr. Jay Jay Li F: Performed By: #### A CASSANDRA, CBC, GFR, A1C, CMP, ADIFF #### [address] [address] Globulin 3.3 G/dL Normal [facility] ([place]) Comment on above: Order Comment: nedra hinton to Dr. Jay Jay Li F: Performed By: #### A CASSANDRA, CBC, GFR, A1C, CMP, ADIFF #### [address] [address] Glucose [Mass/Vol] 92 mg/dL Normal 80-115 [facility] ([place]) Comment on above: Order Comment: nedra hinton to Dr. Jay Jay Li F: Performed By: #### A CASSANDRA, CBC, GFR, A1C, CMP, ADIFF #### [address] [address] Potassium [Moles/Vol] 5.0 mmol/L Normal 3.5-5.1 [facility] ([place]) Comment on above: Order Comment: nedra hinton to Dr. Jay Jay Li F: Performed By: #### A CASSANDRA, CBC, GFR, A1C, CMP, ADIFF #### [address] [address] Sodium [Moles/Vol] 144 mmol/L Normal 136-145 [facility] ([place]) Comment on above: Order Comment: nedra hinton to Dr. Jay Jay Li F: Performed By: #### A CASSANDRA, CBC, GFR, A1C, CMP, ADIFF #### Ibra[address] [place] [address], [place] [address] Total Protein 7.7 G/dL Normal 6.4-8.2 [facility] ([place]) Comment on above: Order Comment: nedra hinton to Dr. Jay Jay Li F: [phone] Performed By: #### A CASSANDRA, CBC, GFR, A1C, CMP, ADIFF #### Ibrahima [address] [address] Urea nitrogen [Mass/Vol] 20 mg/dL High 7-18 [facility] ([place]) Comment on above: Order Comment: nedra hinton to Dr. Jay Jay Li F: [phone] Performed By: #### A CASSANDRA, CBC, GFR, A1C, CMP, ADIFF #### Ibrahima [address] [address] BMP with eGFRon 02-10-2023 AGE 62 years Normal [facility] Comment on above: Performed By: #### 2 46548 #### [facility],[address] [place], [place] [address] Anion gap [Moles/Vol] 12 mmol/L Normal 10 - 20 [facility] Comment on above: Performed By: #### 2 70740 #### [facility],[address] [place] [address] BMP with eGFR Normal [facility] Comment on above: Result Comment: BASI C METABOLIC PANEL Performed By: #### 2 76071 #### [facility],[address] [place] [address] Calcium [Mass/Vol] 9.1 mg/dL Normal 8.5 - 10.1 [facility] Comment on above: Performed By: #### 2 71725 #### [facility],[address] [place] [address] Chloride [Moles/Vol] 107 mmol/L Normal 98 - 107 [facility] Comment on above: Performed By: #### 2 35191 #### [facility],[address] [place], [place] [address] CO2 [Moles/Vol] 26.1 mmol/L Normal 21.0 - 32.0 [facility] Comment on above: Performed By: #### 2 90592 #### [facility],[address] [place], [place] [address] Creatinine [Mass/Vol] 0.71 mg/dL Normal 0.70 - 1.30 [facility] Comment on above: Performed By: #### 2 85762 #### [facility],[address] [place], [place] [address] GFR/1.73 sq M.predicted among non-blacks MDRD (S/P/Bld) [Vol rate/Area] mL/min/{1.73_m2} Normal 60 - 999 [facility] Comment on above: Performed By: #### 2 08356 #### [facility],[address] [place] [address] Result Comment: ACCO RDING TO THE NATIONAL KIDNEY DISEASE EDUCATION PROGRAM(NKDE), A NORMAL eGFR IS A VALUE GREATER THAN OR EQUAL TO 60 ML/MIN/1.73 SQ METERS. CHRONIC KIDNEY DISEASE: <60mL/MIN/1.73 SQ METERS KIDNEY FAILURE: <15mL/MIN/1.73 SQ METERS THIS TEST SHOULD ONLY BE USED FOR PATIENTS 18 YEARS OF AGE AND OLDER. Glucose [Mass/Vol] 94 mg/dL Normal 74 - 106 [facility] Comment on above: Performed By: #### 2 86476 #### [facility],[address] [place], [place] [address] Potassium [Moles/Vol] 4.0 mmol/L Normal 3.5 - 5.1 [facility] Comment on above: Performed By: #### 2 84433 #### [facility],[address] [place], [place] [address] Sodium [Moles/Vol] 141 mmol/L Normal 136 - 145 [facility] Comment on above: Performed By: #### 2 95388 #### [facility],[address] [place] [address] Urea nitrogen [Mass/Vol] 17 mg/dL Normal 7 - 18 [facility] Comment on above: Performed By: #### 2 21323 #### [facility],[address] [place] [address] CBC + DIFFon 02-10-2023 Baso # 0.00 x10EE3/UL Normal 0.00 - 0.10 [facility] Comment on above: Performed By: #### 2 01022 #### [facility],[address] [place] [address] Basophils/100 WBC (Bld) 0.6 % Normal 0.0 - 2.0 [facility] Comment on above: Performed By: #### 2 96934 #### [facility],[address] [place] [address] CBC + DIFF Normal [facility] Comment on above: Result Comment: CBC- COMPLETE BLOOD COUNT Performed By: #### 2 21553 #### [facility],[address] [place] [address] EO # 0.10 x10EE3/UL Normal 0.00 - 0.50 [facility] Comment on above: Performed By: #### 2 27945 #### [facility],[address] [place] [address] Eosinophils/100 WBC (Bld) 1.6 % Normal 0.0 - 7.0 [facility] Comment on above: Performed By: #### 2 31587 #### [facility],[address] [place], [place] [address] Erythrocyte distribution width (RBC) [Ratio] 13.2 % Normal 12.0 - 15.6 [facility] Comment on above: Performed By: #### 2 15676 #### [facility],[address] [place] [address] Hematocrit (Bld) [Volume fraction] 43.2 % Normal 40.0 - 52.0 [facility] Comment on above: Performed By: #### 2 63032 #### [facility],[address] [place] [address] Hemoglobin (Bld) [Mass/Vol] 14.8 g/dL Normal 13.0 - 17.5 [facility] Comment on above: Performed By: #### 2 74218 #### [facility],[address] [place] [address] Lymph # 0.90 x10EE3/UL Normal 0.80 - 2.80 [facility] Comment on above: Performed By: #### 2 97375 #### [facility],[address] [place] [address] Lymphocytes/100 WBC (Bld) 23.8 % Normal 20.0 - 45.0 [facility] Comment on above: Performed By: #### 2 79962 #### [facility],[address] [place], [place] [address] MANUAL DIFF N/A Normal [facility] Comment on above: Performed By: #### 2 42710 #### [facility],[address] [place] [address] MCH (RBC) [Entitic mass] 33 pg Normal 27 - 33 [facility] Comment on above: Performed By: #### 2 21072 #### [facility],[address] [place] [address] MCHC 34 X10 3 Normal 32 - 36 [facility] Comment on above: Performed By: #### 2 75446 #### [facility],[address] [place] [address] MCV (RBC) [Entitic vol] 96 fL Normal 81 - 98 [facility] Comment on above: Performed By: #### 2 77562 #### [facility],[address] [place] [address] Peñuelas # 0.40 x10EE3/UL Normal 0.20 - 1.00 [facility] Comment on above: Performed By: #### 2 96073 #### [facility],[address] [place] [address] MONOS % 10.9 % High 0.0 - 10.0 [facility] Comment on above: Performed By: #### 2 47407 #### [facility],[address] [place] [address] Morphology Colten (Bld) [Interp] N/A Normal [facility] Comment on above: Result Comment: {CD] Performed By: #### 2 96001 #### [facility],[address] [place] [address] Neut # 2.30 x10EE3/UL Normal 1.50 - 7.10 [facility] Comment on above: Performed By: #### 2 73002 #### [address] [address] Neutrophils/100 WBC (Bld) 63.1 % Normal 46.0 - 76.0 [facility] Comment on above: Performed By: #### 2 43175 #### [facility],[address] [place] [address] PLATELET 207 x10EE3/UL Normal 150 - 450 [facility] Comment on above: Performed By: #### 2 34192 #### [facility],[address] [place] [address] Platelet mean volume (Bld) [Entitic vol] 7.1 fL Normal 6.4 - 10.5 [facility] Comment on above: Result Comment: AUTO MATED DIFFERENTIAL Performed By: #### 2 07276 #### [facility],[address] [place] [address] RBC 4.52 x 10EE6/UL Normal 4.50 - 6.00 [facility] Comment on above: Performed By: #### 2 35554 #### [facility],[address] [place] [address] WBC 3.6 x 10EE3/UL Low 4.5 - 10.8 [facility] Comment on above: Performed By: #### 2 24908 #### [facility],[address] [place] [address] CHEST 2 VIEWSon 02-10-2023 CHEST 2 VIEWS [facility] [address] [place] [address] Patient: SREEDHAR HAWKINS Phone#: : 1960 Age: 62 Gender: M Pt. Type: Out Account: [id number] Location: [id number] Ordering: JAY JAY LI Exam Date: 02/10/2023/9:02 Family Phys: JAIME ROACH Charge Code: [id number] Physician: Sandoval Order #: [id number] Dose#: PROCEDURE: X-RAY CHEST 2 VIEWS COMPARISON: None. INDICATIONS: Pre-operative evaluation. FINDINGS: LUNGS: Normal. No significant pulmonary parenchymal abnormalities. VASCULATURE: Normal. Unremarkable pulmonary vasculature. CARDIAC: Normal. No cardiac silhouette abnormality or cardiomegaly. MEDIASTINUM: Normal. No visible mass or adenopathy. PLEURA: Normal. No effusion or pleural thickening. BONES: Severe degenerative changes of the right shoulder. Degenerative changes of the spine. Mild dextroscoliosis of the thoracic spine. OTHER: Negative. CONCLUSION: No acute pulmonary parenchymal abnormality. Dictated by: Radha Coon MD on 02/10/2023 at 11:49 Approved by: Radha Coon MD on 02/10/2023 at 11:52 Normal [facility] LABORATORYOrdered By: SYSTEM SYSTEM on 07-24-2022 Albumin BCP dye [Mass/Vol] 3.8 G/dL Invalid Interpretation Code 3.4 - 4.8 G/dL AO ADM SS Albumin/Globulin [Mass ratio] 1.2 {ratio} Invalid Interpretation Code 1.1 - 2.5 ratio AO ADM SS ALP [Catalytic activity/Vol] 83 U/L Invalid Interpretation Code 40 - 135 U/L AO ADM SS ALT With P-5'-P [Catalytic activity/Vol] 30 U/L Invalid Interpretation Code 16 - 63 U/L AO ADM SS AST With P-5'-P [Catalytic activity/Vol] 23 U/L Invalid Interpretation Code 10 - 40 U/L AO ADM SS Bilirubin [Mass/Vol] 0.8 mg/dL Invalid Interpretation Code 0.2 - 1.0 mg/dL AO ADM SS Calcium [Mass/Vol] 8.4 mg/dL Invalid Interpretation Code 8.4 - 10.2 mg/dL AO ADM SS Chloride [Moles/Vol] 105 mmol/L Invalid Interpretation Code 98 - 107 mmol/L AO ADM SS CO2 [Moles/Vol] 28 mmol/L Invalid Interpretation Code 23 - 31 mmol/L AO ADM SS Creatinine [Mass/Vol] 0.77 mg/dL Invalid Interpretation Code 0.70 - 1.30 mg/dL AO ADM SS Electrolyte Balance 7.0 mEq/L Invalid Interpretation Code 4.0 - 15.0 mEq/L AO ADM SS GFR 124 ml/min/1.73sqm Invalid Interpretation Code AO Chemistry S GFR Non- 102 ml/min/1.73sqm Invalid Interpretation Code AO Chemistry S Globulin 3.2 G/dL Invalid Interpretation Code AO ADM SS Glucose [Mass/Vol] 108 mg/dL Invalid Interpretation Code 80 - 115 mg/dL AO ADM SS HbA1c (Bld) [Mass fraction] 5.5 % Invalid Interpretation Code 4.3 - 6.4 % AO ADM SS Potassium [Moles/Vol] 4.7 mmol/L Invalid Interpretation Code 3.5 - 5.1 mmol/L AO ADM SS Prostate specific Ag [Mass/Vol] 0.21 ng/mL Invalid Interpretation Code 0.00 - 4.00 ng/mL AO ADM SS Protein [Mass/Vol] 7.0 G/dL Invalid Interpretation Code 6.4 - 8.2 G/dL AO ADM SS Sodium [Moles/Vol] 140 mmol/L Invalid Interpretation Code 136 - 145 mmol/L AO ADM SS Urea nitrogen [Mass/Vol] 10 mg/dL Invalid Interpretation Code 7 - 18 mg/dL AO ADM SS Urea nitrogen/Creatinine [Mass ratio] 13 ratio Invalid Interpretation Code 7 - 27 ratio AO ADM SS LABORATORYOrdered By: Jagruti Sandoval on 07-24-2022 Basophil, Absolute 0.0 103/mcL Invalid Interpretation Code 0.0 - 0.2 10^3/mcL AO Workflow SS Basophils/100 WBC (Bld) 0.5 % Invalid Interpretation Code 0.0 - 2.5 % AO Workflow SS Cholesterol [Mass/Vol] 156 mg/dL Invalid Interpretation Code 0 - 200 mg/dL AO ADM SS Cholesterol in HDL [Mass/Vol] 53 mg/dL Invalid Interpretation Code 40 - 60 mg/dL AO ADM SS Cholesterol in LDL [Mass/Vol] 91 mg/dL Invalid Interpretation Code 0 - 130 mg/dL AO ADM SS Eosinophil, Absolute 0.1 103/mcL Invalid Interpretation Code 0.0 - 0.4 10^3/mcL AO Workflow SS Eosinophils/100 WBC (Bld) 2.9 % Invalid Interpretation Code 0.0 - 7.0 % AO Workflow SS Erythrocyte distribution width (RBC) [Ratio] 12.7 % Invalid Interpretation Code 11.5 - 14.5 % AO Workflow SS Hematocrit (Bld) [Volume fraction] 41.6 % Invalid Interpretation Code 42.0 - 52.0 % AO Workflow SS Hemoglobin (Bld) [Mass/Vol] 14.6 G/dL Invalid Interpretation Code 14.0 - 18.0 G/dL AO Workflow SS Lymphocyte, Absolute 0.9 103/mcL Invalid Interpretation Code 0.8 - 3.9 10^3/mcL AO Workflow SS Lymphocytes/100 WBC (Bld) 26.9 % Invalid Interpretation Code 10.0 - 50.0 % AO Workflow SS MCH (RBC) [Entitic mass] 32.5 pg Invalid Interpretation Code 27.0 - 31.2 pg AO Workflow SS MCHC 35.2 G/dL Invalid Interpretation Code 31.8 - 35.4 G/dL AO Workflow SS MCV (RBC) [Entitic vol] 92.6 fL Invalid Interpretation Code 80.0 - 94.0 fL AO Workflow SS Monocyte, Absolute 0.3 103/mcL Invalid Interpretation Code 0.2 - 1.0 10^3/mcL AO Workflow SS Monocytes/100 WBC (Bld) 10.3 % Invalid Interpretation Code 1.7 - 13.0 % AO Workflow SS Neutrophil, Absolute 2.0 103/mcL Invalid Interpretation Code 2.9 - 6.2 10^3/mcL AO Workflow SS Neutrophils/100 WBC (Bld) 59.4 % Invalid Interpretation Code 37.0 - 80.0 % AO Workflow SS Platelet mean volume (Bld) [Entitic vol] 6.8 fL Invalid Interpretation Code 7.4 - 10.4 fL AO Workflow SS Platelets (Bld) [#/Vol] 188 103/mcL Invalid Interpretation Code 130 - 400 10^3/mcL AO Workflow SS RBC (Bld) [#/Vol] 4.49 106/mcL Invalid Interpretation Code 4.04 - 6.13 10^6/mcL AO Workflow SS Triglyceride [Mass/Vol] 61 mg/dL Invalid Interpretation Code 0 - 150 mg/dL AO ADM SS WBC (Bld) [#/Vol] 3.3 103/mcL Invalid Interpretation Code 4.6 - 10.8 10^3/mcL AO Workflow SS ANES Adrienne 01-28-2017 ANES POST HNO ID: [id number]: Jose Ramon Keith: AnesthesiologyAuthor Type: AnesthesiologistType: Anesthesia PostOpFiled: 01/28/2017 11:30 AMNote Text:REGIONAL ANESTHESIOLOGY POST ANESTHESIA NOTEPATIENT NAME: Cyndee HawkinsMRN: [id number]: [id number]: 136/85Pulse: 68Resp: 18Temp: 36.5 ?C (97.7 ?F)TempSrc: OralSpO2: 99%Weight: 94.8 kg (209 lb)Height: 179.1 cm (5' 10.5)No apparent anesthetic complications. The patient is appropriatelyhydrated with stable respiratory and cardiovascular status. Patient hassafe and adequate airway control. The patient has appropriate pain reliefand no significant post operative nausea or vomiting. The patient hasachieved baseline mental status.Further assessment by Anesthesia Service: NoneOther remarks: NoneSIGNATURE: Jose Ramon Causey MDDATE: January 28, 2017TIME: 11:30 AM [facility] ANES PREOPon 01-28-2017 ANES PREOP HNO ID: [id number]: Jose Ramon Keith: AnesthesiologyAutholexi Type: AnesthesiologistType: Anesthesia PreOpFiled: 01/28/2017 10:00 AMNote Text:REGIONAL ANESTHESIOLOGY DAY OF SURGERY NOTEPATIENT NAME: Cyndee HawkinsMRN: [id number](s) (LRB):EXCISION AND REPAIR OF > 1/4 OF EYELID W/GRAFT (Right)Surgeon(s):Didier Hartman LocastroVitals:There were no vitals filed for this visit.ACTIVE PROBLEM LISTSpecial Screening for Malignant Neoplasms, ColonDiarrheaPAST MEDICAL HISTORYDiagnosis Date- Diarrhea- PMH - PAST MEDICAL HISTORY OF nonePAST SURGICAL HISTORYProcedure Laterality Date- COLONOSCOPY W/BX 06/15/10- PAST SURGICAL HISTORY OF 06/13 right hip replacement- PAST SURGICAL HISTORY OF tubes in ears- PAST SURGICAL HISTORY OF arthroscopic surgery on right knee- REMOVAL OF TONSILS,<12 Y/O TonsillectomyFAMILY HISTORYProblem Relation Age of Onset- melanoma [Other] [OTHER] FatherSocial History:Social HistorySubstance Use Topics- Smoking status: Never Smoker- Smokeless tobacco: Not on file- Alcohol use NoNo current facility-administered medications on file prior to encounter.No current outpatient prescriptions on file prior to encounter.Current Facility-Administered Medications:lactated ringers infusion 30 mL/hr INTRAVENOUS CONTINUOUS Valdo Ignacioergies: ALLERGIESNo Known AllergiesAdequate NPO status: YesAnesthetic risks, benefits, alternatives, personnel and consent discussed:YesPatient agrees to proceed: YesPrevious Anesthesia: No history of adverse event.Airway Assessment: MP 2; Neck ROM: Full ROM without neurologic symptoms;Airway Evaluation: No significant abnormalitiesDentition: Teeth intactSymptoms of Sleep Apnea: N/ABlood Products: Not anticipated for this procedure.Anesthetic Plan: General; Standard ASA MonitorsPain Management Plan: Parenteral or OralASA Class: 2Other Medical Problems: none, mental delay possib.Chronic Beta Sandra medication administered within 24 hours: N/AI have interviewed and examined the patient. I have reviewed the medicalrecord and/or the pre-anesthesia evaluation, pertinent labs, and testresults.Significant changes in the patient's condition since the History andPhysical, not otherwise documented in primary service progress notes: [facility] contains updated information obtained within 48 hours ofSurgery/Procedure.SIGN ATURE: Jose Ramon Causey, MDDATE: January 28, 2017TIME: 9:48 AM Normal [facility] HISTORY PHYSICALon 7 HISTORY PHYSICAL HNO ID: [id number]: Valdo Hartman LocastroService: OphthalmologyAuthor Type: PhysicianType: HANDPFiled: 01/28/2017 10:38 AMNote Text:UPDATED HISTORY AND PHYSICAL EXAMINATIONSERVICE DATE: 01/28/2017SERVICE TIME: 10:37 AMPHYSICAL EXAM MUST BE COMPLETED ON ADMISSIONThe History and Physical (completed in the past 30 days) has been reviewedand the patient has been examined. The contents accurately reflect thepatient's condition with the following additions or revisions since theHANDP was completed.Examination indicates no changes.This HANDP can be found in the scanned documents dated 01/11/17.SIGNATURE: Valdo Ann MD PATIENT NAME: Cyndee HawkinsDATE: January 28, 2017 : 10:37 AM PAGER: [facility] OPERATIVE NOon 01-28-2017 OPERATIVE NO HNO ID: [id number]: Valdo RgoService: OphthalmologyAuthor Type: PhysicianType: Operative ReportFiled: 01/28/2017 11:07 AMNote Text: OPERATIVE/PROCEDURE REPORT OPHTHAMOLOGYLOG ID: [id number]/Procedure Date: 01/28/2017Incision/Proced ure Start Time: 10:45 AMIncision Close/Procedure End Time: 11:[address](s[address](s) and Circulating Process Inspector(s):Surgeon(s) and Role: * Valdo Ann - PrimaryProcedure(s): Procedure(s) (LRB):EXCISION AND REPAIR OF > 1/4 OF EYELID W/GRAFT (Right)Preoperative Diagnosis: 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 The face was prepped and draped in theusual sterile fashion for eyelid surgery. A tissue transfer flap of lessthan 10 square centimeters was developed from the neighboring tissue usinga 15 blade. Extensive undermining was performed. The flap was rotatedinto position over the defect following debridement. It was secured tothe defect using interrupted sutures of 7-0 Vicryl. The flap was in goodposition at the end of the case. The defect was fully covered withtransferred tissue. Antibiotic ointment was placed on the eye. Thepatient was returned to the recovery room in satisfactory condition.Estimated Blood Loss: Minimal unless noted here.Specimens: * No specimens in log *Implantable Devices: * No implants in log *Drains: None unless noted here.Complications: NoneThe primary surgeon/proceduralist performed the entire procedure.SIGNATURE: Valdo Ann MD PATIENT NAME: Cyndee HawkinsDATE: January 28, 2017 : 11:06 AM PAGER/CONTACT #: [facility] HOSPon 01-03-2017 Weight Patient:Reynaldo Hawkins RMRN: Height:5' 10.5(1.791 m)Weight:209 lb (94.802 kg)Outpatient Medications as of 01/28/17:FLUoxetine (PROZAC) 20 mg capsulemirtazapine (REMERON) 30 mg tabletAdmission/Clinic Administered Medications as of 01/28/17:lactated ringers infusionProblem List:Special screening for malignant neoplasms, colon [Z12.11]Diarrhea [R19.7]Allergies:No Known AllergiesDate Verified:01/28/17Lab ValuesNo results within the last 30 days for the following basenames: K,HCTNo progress notes entered within the past 30 days [facility] Vital Signs Date Time Vital Sign Value Performing Clinician Faci lity 08-19-2023 17:05-0400 Body temperature 97.52 [degF] KEREN GARCIA MD [facility] 08-19-2023 17:05-0400 Body weight 97.3 kg KEREN GARCIA MD [facility] 08-19-2023 17:05-0400 Diastolic Blood Pressure Non-Invasive 82 mm[Hg] KEREN GARCIA MD [facility] 08-19-2023 17:05-0400 Heart rate 67 /min KEREN GARCIA MD [facility] 08-19-2023 17:05-0400 Respiratory rate 16 /min KEREN GARCIA MD [facility] 08-19-2023 17:05-0400 Systolic Blood Pressure Non-Invasive 151 mm[Hg] KEREN GARCIA MD [facility] 06-28-2023 16:56-0500 Diastolic Blood Pressure Non-Invasive 75 mm[Hg] DR GINA HOWARD MD [facility] 06-28-2023 16:56-0500 Heart rate 60 /min DR GINA HOWARD MD [facility] 06-28-2023 16:56-0500 Reason For Taking VItal Signs DR GINA HOWARD MD [facility] 06-28-2023 16:56-0500 Respiratory rate 18 /min DR GINA HOWARD MD [facility] 06-28-2023 16:56-0500 Systolic Blood Pressure Non-Invasive 135 mm[Hg] DR GINA HOWARD MD [facility] 06-28-2023 15:37-0500 Body temperature 97.16 [degF] DR GINA HOWARD MD [facility] 06-28-2023 15:37-0500 Diastolic Blood Pressure Non-Invasive 77 mm[Hg] DR GINA HOWARD MD [facility] 06-28-2023 15:37-0500 Heart rate 64 /min DR GINA HOWARD MD [facility] 06-28-2023 15:37-0500 Respiratory rate 18 /min DR GINA HOWARD MD [facility] 06-28-2023 15:37-0500 Systolic Blood Pressure Non-Invasive 154 mm[Hg] DR GINA HOWARD MD [facility] Encounters Encounter Date Encounter Type Care Provider Facility Start: 12-06-2024 ambulatory Prashanth Friend Facility :[facility] Start: 12-05-2024 ambulatory Paul L Seese Facility :[facility] Start: 11-22-2024 End: 11-22-2024 ambulatory ANNA HALKO DO [facility] Start: 11-22-2024 End: 11-22-2024 Patient encounter procedure ANNA HALKO DO [facility] Start: 11-20-2024 End: 11-20-2024 ambulatory ANNA HALKO DO Facility:[facility] Start: 11-20-2024 End: 11-20-2024 Patient encounter procedure ANNA HALKO DO [facility] Start: 10-23-2024 End: 10-23-2024 ambulatory Anna Halko Facility:[facility] Start: 07-31-2024 End: 07-31-2024 ambulatory Paul L Seese Facility[facility] Start: 07-27-2024 End: 07-27-2024 ambulatory ANNA HALKO DO Facility:[facility] Start: 07-24-2024 End: 08-13-2024 ambulatory ANNA HALKO DO [facility] Start: 05-10-2024 End: 05-10-2024 ambulatory ANNA HALKO DO [facility] Start: 05-10-2024 End: 05-10-2024 Patient encounter procedure ANNA HALKO DO [facility] Start: 05-02-2024 End: 05-02-2024 ambulatory Paul L Seese [facility] Start: 02-14-2024 End: 02-14-2024 ambulatory ANNA HALKO DO [facility] Start: 02-14-2024 End: 02-14-2024 Patient encounter procedure FELIZ ALEXANDER FITTER WELDER [facility] Start: 01-26-2024 End: 01-26-2024 ambulatory Anna Halko [facility] Start: 11-25-2023 End: 12-27-2023 ambulatory ANNA HALKO DO Facility:[facility] Start: 11-25-2023 End: 12-27-2023 Physical therapy management ANNA HALKO DO [facility] Start: 10-04-2023 End: 11-18-2023 Admission to same day surgery center PETAR CROW [facility] Start: 10-04-2023 End: 11-18-2023 ambulatory PETAR CROW Facility:[facility] Start: 08-19-2023 End: 08-19-2023 Emergency department patient visit KEREN GARCIA MD [facility] Start: 08-18-2023 End: 08-18-2023 ambulatory ANNA LYRICKO DO Facility:[facility] Start: 08-18-2023 End: 08-18-2023 Patient encounter procedure ANNA HALKO DO [facility] Start: 07-07-2023 End: 07-07-2023 ambulatory ANNA HALKO DO Facility:[facility] Start: 07-07-2023 End: 07-07-2023 Patient encounter procedure ANNA HALKO DO [facility] Start: 07-05-2023 End: 08-08-2023 ambulatory ANNA HALKO DO Facility:[facility] Start: 07-05-2023 End: 08-08-2023 Physical therapy management ANNA HALKO DO [facility] Start: 06-28-2023 End: 06-28-2023 Emergency department patient visit DR GINA HOWARD MD [facility] Start: 03-03-2023 End: 05-02-2023 Admission to same day surgery center JAY JAY LI MD [facility] Start: 03-03-2023 End: 05-02-2023 ambulatory JAY JAY LI MD Facility:[facility] Start: 02-28-2023 End: 03-01-2023 [facility] Start: 02-24-2023 End: 02-24-2023 ambulatory ANNA VEGA DO Facility:[facility] Start: 02-24-2023 End: 02-24-2023 Patient encounter procedure ANNA VEGA DO [facility] Start: 02-16-2023 End: 02-20-2023 ambulatory ANNA VEGA DO Facility:[facility] Start: 02-16-2023 End: 02-20-2023 Encounter for other preprocedural examination ANNA GARY Facility:[facility] Start: 02-10-2023 End: 02-10-2023 [facility] Start: 10-08-2022 End: 10-08-2022 Patient encounter procedure ANNA VEGA DO [facility] Start: 07-24-2022 End: 07-24-2022 Patient encounter procedure ANNA VEGA DO [facility] Start: 05-19-2022 End: 06-15-2022 Physical therapy management ANNA VEGA DO [facility] Start: 05-04-2022 End: 05-04-2022 Patient encounter procedure ANNA VEGA DO [facility] Start: 07-27-2021 End: 07-27-2021 [facility] Start: 04-18-2021 End: 04-18-2021 Patient encounter procedure ANNA VEGA DO [facility] Start: 01-28-2017 End: 01-28-2017 Ambulatory [facility] Procedures Date Procedure Procedure Detail Performing Clinician Start: 01-21-2014 Other (qualifier value) ANNA VEGA DO Comment on above: septoplasty, Dr. Seferino farley, [facility] Start: 08-03-2013 Ankle region structu re (body structure) ANNA VEGA DO Comment on above: Dr. Cole - ORIF Ri ght ankle, s/p fracture medial malleolus Start: 06-06-2007 Prosthetic arthropla sty of the hip ANNA VEGA DO Comment on above: Right Knee region structur e (body structure) ANNA VEGA DO Comment on above: Arthroscopy - Left k nee - calcium deposits Tube (qualifier value) MARE VEGA DO Comment on above: in ear: bilateral Immunizations Immunization Date Immunization Notes Care Provider [facility] 03-02-2024 influenza, injectabl e, quadrivalent, contains preservative; Translations: [Fluarix PF Prefilled Syringe ] ANNA VEGA DO [facility] 03-26-2022 COVID-19, mRNA, LNP- S, bivalent booster, PF, 30 mcg/0.3 mL dose; Translations: [Pfizer-BioNTech COVID-19 (12y+) Bivalent Booster Vaccine PF] ANNA VEGA DO [facility] 03-26-2022 SARSCoV2 mRNA(tcgsnbvxvfi53n+)b ival vac; Translations: [Pfizer-BioNTech COVID-19 (12y+) Bivalent Booster Vaccine PF] DR GINA HOWARD MD [facility] 03-06-2022 influenza virus vaccine, unspecified formulation ANNA LYRICCAREY DO [facility] Comment on above: Result Comment: at [facility] 02-05-2022 tetanus toxoid, reduced diphtheria toxoid, and acellular pertussis vaccine, adsorbed; Translations: [Boostrix (Tdap)] ANNA VEGA DO [facility] 04-13-2021 COVID-19, mRNA, LNP- S, PF, 100 mcg/ 0.5 mL dose; Translations: [Moderna COVID-19 Vaccine] ANNA VEGA DO [facility] 03-06-2021 influenza virus vaccine, unspecified formulation ANNA VEGA DO [facility] Comment on above: Result Comment: at [facility] 10-04-2020 SARS-CoV-2 (COVID-19 ) mRNA-1273 vaccine ANNA VEGA DO [facility] Comment on above: Result Comment: [facility] 09-06-2020 SARS-CoV-2 (COVID-19 ) mRNA-1273 vaccine ANNA VEGA DO [facility] Comment on above: Result Comment: [facility] 04-12-2020 pneumococcal conjuga te vaccine, 13 valent ANNA VEGA DO [facility] Comment on above: Result Comment: [facility] 04-12-2020 zoster vaccine recombinant ANNA VEGA DO [facility] Comment on above: Result Comment: [facility] 02-08-2020 zoster vaccine recombinant ANNA VEGA DO [facility] 04-06-2015 influenza virus vaccine, unspecified formulation ANNA VEGA DO [facility] 02-04-2014 influenza virus vaccine, unspecified formulation ANNA EVGA DO [facility] 01-21-2014 Influenza virus vaccine [facility] Work Phone: 06-06-2013 influenza virus vaccine, unspecified formulation ANNA VEGA DO [facility] 03-31-2010 tetanus toxoid, reduced diphtheria toxoid, and acellular pertussis vaccine, adsorbed ANNA VEGA DO [facility] Payers Date Payer Category Payer Self-pay [id number] 2023 Unknown [id number] 2022 Private Health Insurance [id number] 1960 Unknown [id number] .840.1.459481.3.579.2.62 1960 Unknown [id number] .840.1.502000.3.579.2.62 1960 Unknown [id number] .840.1.554804.3.579.2.62 1960 Unknown [id number] .840.1.562353.3.579.2.62 1960 Unknown [id number] .16840.1.554558.3.579.2.62 1960 Unknown [id number] 2.16840.1.430978.3.579.2.62 1960 Unknown [id number] 2.16840.1.101350.3.579.2.62 1960 Unknown [id number] 2.16.840.1.298135.3.579.2.627 1960 Unknown [id number] 2.16.840.1.441922.3.579.2.627 1960 Unknown [id number] 2.16.840.1.212994.3.579.2.627 1960 Unknown [id number] 2.16.840.1.956038.3.579.2.627 1960 Unknown [id number] 2.16.840.1.970040.3.579.2.627 1960 Unknown [id number] 2.16.840.1.095267.3.579.2.627 1960 Unknown [id number] 2.16.840.1.397321.3.579.2.627 1960 Unknown [id number] 2.16.840.1.282935.3.579.2.627 1960 Unknown [id number] 2.16.840.1.077464.3.579.2.627 1960 Unknown [id number] 2.16.840.1.832722.3.579.2.651 1960 Unknown [id number] 2.16.840.1.452270.3.579.2.651 Unknown SELF PAY INSURANCE [id number] Unknown [id number] 2.16.840.1.440693.3.579.2.462 Unknown [id number] 2.16.840.1.150819.3.579.2.462 Unknown [id number] 2.16.840.1.898552.3.579.2.462 Unknown [id number] 2.16.840.1.431377.3.579.2.462 Unknown [id number] 2.16.840.1.533528.3.579.2.462 Unknown [id number] 2.16.840.1.966456.3.579.2.462 Social History Date Type Detail Facility Start: 02-13-2019 End: 10-04-2024 Never smoked tobacco (finding) [facility] Sex Assigned At [facility] Start: 01-23-2014 Tobacco smoking stat [facility] Unknown if ever smoked [facility] Work Phone: Start: 01-21-2014 None [facility] Work Phone: Start: 01-21-2014 With Family [facility] Work Phone: Start: 01-21-2014 Non-smoker [facility] Work Phone: Start: 1960 Sex Assigned At Male [facility] Work Phone: Start: 07-15-2005 Sex Male (finding) [facility] Functional Status Date Assessment Result Facility 11-25-2023 Functional Status Home Living Ad ditional Information OBJECTIVE BP: 134/86 automatic Posture: kyphotic posture, forward head posture Sensation: no abnormalities or asymmetries with light touch, pt reports decreased/odd sensation at digit 5 Shoulder AROM: LUE WNL, RUE flexion ~90deg, abdcution ~90deg Cervical AROM: rotation ~40deg bilateral, severe restriction lateral flexion bilateral, mild restriction flexion, severe restriction extension; no change in UE symptoms with neck ROM all planes 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, 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 Thoracic mobility: marked stiffness with accessory mobility assessment with report of positive response to assessment [facility] 10-04-2023 Functional Status Home Living Ad ditional Information OBJECTIVE BP: 120/75 automatic Posture: slouched in seated Gait: amb with FWW, small step length, flat foot gait with limited knee ROM Transfers: marked use of UEs but able to perform at elevated mat table with no UE support Sensation: no abnormalities or asymmetries with light touch Reflexes: NT Edema: L calf - 43cm, R calf - 42cm ; no S&S of infection, no calf tenderness compliant with alisha hose AROM: 30-85 PROM: 9- [facility] 08-19-2023 Functional Status ID band on, Call device within reach, Bed in low position, Wheels locked, Visitor at bedside [facility] 06-28-2023 Functional Status ID band on, Call device within reach, Bed in low position, Wheels locked, Upper/Half-Length side-rails up, Bedside Cart Locked, Visitor at bedside, Safety level maintained [facility] 06-28-2023 Functional Status [facility] Stevie gonzalez [facility] 03-03-2023 Functional Status Home Living Ad ditional Information OBJECTIVE BP: 122/81 Posture: slouched in seated Gait: amb with FWW, small step length, flat foot gait with limited knee ROM Transfers: marked use of UEs and grimace due to pain Sensation: no abnormalities or asymmetries with light touch Reflexes: NT Edema: L calf - 39cm, R calf - 39cm ; localized, no S&S of infection, compliant with alisha hose AROM: 32-83 PROM: 10 [facility] 05-19-2022 Functional Status Home Living Ad ditional Information Objective: Cardiovascular screen: BP: 1 HR: 140/80 BPM O2 sat: 93% Gait: Antalgic with decreased terminal knee extension and genu valgus L>R Observation in standing: Genu Valgum L Joint Mobility not tested Effusion: no knee effusion, excess warmth, no obvious sisng of infection or obvious muscle or tendon defects present. Foot: Pes planus bilat Functional Strength: sit to stand: AMRITA relies heavily on UE's Palpation: Denies tenderness to palpation peripatellar region and lateral joint line. Some medial joint line tendernes son the L is noted. [facility] Mental Status Date Assessment Result Facility 08-19-2023 Mental Status Oriented x 4 [facility] 06-28-2023 Mental Status Orientation Foll ows simple commands, Other: pt has developmental delay [facility] Clinical Notes 04-25-2023 to 11-22-2024 Note Date & Type Note Facility 11-22-2024 Note Exam Date Time Procedure Performing Provider Status 11/22/24 8:54 AM XR Esophogram w/Barium Tablet ANNA DORANTES MD; Auth (Verified) [id number] ORIGINAL EXAMINATION: Double CONTRAST ESOPHAGRAM 11/22/2024 HISTORY: ORDERING SYSTEM PROVIDED HISTORY: Reason for Exam: oropharyngeal and esopahgeal dysphagia COMPARISON: None. TECHNIQUE: Multiple single contrast images of the esophagus and gastroesophageal junction were obtained following the oral administration of water soluble contrast FLUOROSCOPY DOSE AND TYPE: Radiation Exposure Index: Kerma mGy, 120.40. 1.4 minutes of fluoroscopy time was utilized. 24 images were obtained. FINDINGS: Esophagus is diffusely dilated on fruit press operator image. Barium tablet does not pass through the distal esophagus. On the double contrast images, there is a 2.5 cm irregular stricture at the GE junction. Esophagus is diffusely dilated and slightly hypo peristaltic. No evidence of leak. No hiatal hernia is seen and there is no evidence of achalasia. No gastroesophageal reflux was elicited during examination. IMPRESSION: Dilated esophagus with a 2.5 cm irregular stricture at the GE junction, this is concerning for esophageal carcinoma. Endoscopy is recommended to further evaluate. Interpreted by: Anna Dorantes MD Preliminary Report By: Anna Dorantes MD Electronically signed By Anna Dorantes MD Dictated Date: 11/22/2024 9:32:33 AM Prelim Date: 11/22/2024 9:42:24 AM Sign Date: 11/22/2024 9:42:24 AM Ordering Provider: ANNA VEGA [facility]06-17-2025 Note* Exam Date Time Procedure Performing Provider Status 11/20/24 12:52 PM XR Swallowing Function M odified [id number] ORIGINAL Images acquired, not reported on this accession number. [id number] Discharge instructions Patient Education 08/19/2023 17:28:38 Muscle Strain, Extremity Muscle Strain in the Extremities A muscle strain is a stretching and tearing of muscle fibers. This causes pain, especially when youmove that muscle. There may also be some swelling and bruising. Home care Keep the hurt area raised above heart level to reduce pain and swelling. This is especially important during the first 48 hours. Apply an ice pack over the injured area for 15 to 20 minutes every 3 to 6 hours. You should do thisfor the first 24 to 48 hours. You can make an ice pack by filling a plastic bag that seals at the top with ice cubes and then wrapping it with a thin towel. Be careful not to injure your skin with the ice treatments. Ice should never be applied directly to skin. Continue the use of ice packs for relief of pain and swelling as needed. After 48 hours, apply heat (warm shower or warm bath) for 15 to20 minutes several times a day, or alternate ice and heat. You may use cgtv-fzy-vrjlxak pain medicine to control pain, unless another medicine was prescribed.If you have chronic liver or kidney disease or ever had a stomach ulcer or gastrointestinal bleeding, talk with your healthcare provider before using these medicines. For leg strains: If crutches have been recommended, don t put full weight on the hurt leg until youcan do so without pain. You can return to sports when you are able to hop and run on the injured leg without pain. Follow-up care Follow up with your healthcare provider, or as advised. When to seek medical advice Call your healthcare provider right away if any of these occur: The toes of the injured leg become swollen, cold, blue, numb, or tingly Pain or swelling increases [phone] [employer]. [address] [place] [address]. All rights reserved. This information is not intended as a substitute for professional medical care. Always follow yourhealthcare professional's instructions. Follow Up Care 08/19/2023 16:54:28 With:NANA VEGA DO Address: [address] [place] [address] [phone] When:2-4 days [facility] 03-15-2024 Note Discharge Instructions Thank you for allowing [facility] to assist you with your healthcare needs. The following is importantdischarge information regarding your hospital visit. Diagnosis from Today's Visit Leg pain-swelling Strain of muscle of lower leg What to Do Next Instructions from Your Care Team No qualifying data available. Post Acute Orders No qualifying data available. You Need to Schedule the Following Appointments Follow Up with HALKO, ANNA DO When Within 2-4 days Where: [address] [place] [address]- [phone] Allergies NKA Medications Please ask your primary doctor or pharmacist before taking any other medication not listed, including over the counter drugs, herbal medications, vitamins and or supplements as they may interact withyour home medications. What How Much When Why Instructions Last Dose Unchanged ascorbic acid (Vitamin C 1000 mg oral tablet) 1 tab(s) by mouth Once a day Unchanged DME (DME MISCellaneous) See instructions Knee osteoarthritis H/O knee surgery dx M17.9, Z98.890 dispense one walker. Unchanged DME (DME MISCellaneous) See instructions dx M17.9, Z98.890; dispense one shower chair. Unchanged DME (DME MISCellaneous) See instructions H/O knee surgery Knee osteoarthritis dx M17.9, Z98.890; dispense one toilet sear riser with grab bars Unchanged gabapentin (gabapentin 300 mg oral capsule) 2 cap by mouth Three (3) times a day Cervical radiculopathy Duration: 30 Days fill on or after 2023 Unchanged herbal/ nutritional product (turmeric 500 mg oral capsule) See instructions Unchanged methylcobalamin (Vitamin B12 Methylcobalamin 2000 mcg oral capsule) See instructions Unchanged multivitamin (Multivitamin) 1 tab(s) by mouth Every day Unchanged naproxen (naproxen 500 mg oral delayed release tablet) 1 tab(s) by mouth Two (2) times a day Duration: 90 Days Unchanged phytonadione (Vitamin K1) See instructions Unchanged polyethylene glycol 3350 (MiraLax oral powder for reconstitution) 17 gram(s) by mouth Once a day as needed for for hard stool Unchanged pramoxine topical (CeraVe itch Relief 1% topical lotion) 1 application Topical 5 times a day as needed for as needed for itching Duration: 30 Days Unchanged sertraline (sertraline 200 mg oral capsule) 1 cap by mouth Once a day swallow whole Unchanged tamsulosin (tamsulosin 0.4 mg oral capsule) 2 cap by mouth Once a day Duration: 90 Days new dose Unchanged zinc acetate (zinc (as acetate) 25 mg oral capsule) 1 cap by mouth Once a day Please take this list to your next doctor s visit. Bring all medications you take, including over the counter medications, herbals and other supplements with you to your doctor s visit. Patients and families are reminded to discard old lists and to update any records with all medication providers or retail pharmacies. Education Materials Muscle Strain in the Extremities A muscle strain is a stretching and tearing of muscle fibers. This causes pain, especially when youmove that muscle. There may also be some swelling and bruising. Home care Keep the hurt area raised above heart level to reduce pain and swelling. This is especially important during the first 48 hours. Apply an ice pack over the injured area for 15 to 20 minutes every 3 to 6 hours. You should do thisfor the first 24 to 48 hours. You can make an ice pack by filling a plastic bag that seals at the top with ice cubes and then wrapping it with a thin towel. Be careful not to injure your skin with the ice treatments. Ice should never be applied directly to skin. Continue the use of ice packs for relief of pain and swelling as needed. After 48 hours, apply heat (warm shower or warm bath) for 15 to20 minutes several times a day, or alternate ice and heat. You may use rxhz-gvr-ctxaeve pain medicine to control pain, unless another medicine was prescribed.If you have chronic liver or kidney disease or ever had a stomach ulcer or gastrointestinal bleeding, talk with your healthcare provider before using these medicines. For leg strains: If crutches have been recommended, don t put full weight on the hurt leg until youcan do so without pain. You can return to sports when you are able to hop and run on the injured leg without pain. Follow-up care Follow up with your healthcare provider, or as advised. When to seek medical advice Call your healthcare provider right away if any of these occur: The toes of the injured leg become swollen, cold, blue, numb, or tingly Pain or swelling increases [phone] [employer]. [address] [place] [address], [place] [address]. All rights reserved. This information is not intended as a substitute for professional medical care. Always follow yourhealthcare professional's instructions. Additional Information VACCINATE! IT SAVES LIVES! Members of the community who have not yet received the COVID-19 vaccine and would like to receive it can visit one of [facility] vaccine clinics. There are many vaccine clinic locations within the [facility]. For locations and available times, please visit www.gettheshot.coronavirus.[place].gov/. It is important to note that some COVID mobile vaccine clinics are held outdoors and may be canceled in rainy or stormy conditions. To learn more about pediatric vaccinations (ages 5-11), we invite you to visit the [facility] webpage. [email or web address]://[email or web address]/[email or web address]-Ojynngazlo-Csdxd-[email or web address] stions.htmlTo learn more about the COVID-19 vaccine, we invite you to visit the CDC website for a list of frequently asked questions. https://www.cdc.gov/coronavirus/2019-ncov/vaccines/faq.html [facility] Patient Portal Access Instructions: Stay connected with your healthcare team and access your personal medical information anytime with the [facility] Patient Portal. If you would like a full copy of your medical records please contact the [facility] Medical Records Department Tuesday through Tuesday between 8a.m. and 4:30p.m. Please follow the directions below to access the portal: 1.Access the email account you provided upon registration to the hospital.2.Look for an invitation email from [facility].3.Open the email and access the invitation link: Accept Invitation to [facility].Fill in the required lugo to create your account. Sign into [email or web address] with your username and password that you created in the above steps to stay up to date. You can then view a summary of results, a summary of your visits, and the ability to download your summaries to your computer or send the information securely to a physician. Remember that your healthcare information is confidential, so carefully consider who you will allow to register on the [facility] Patient Portal for access to your information. You can also access the [facility] Patient Portal on the [employer] daija. Simply click on Health Records under SOAK ([employer]) and then click on the [employer] logo. HOW TO SAFELY DISPOSE OF PRESCRIPTION MEDICATIONS Please use one of the following methods to safely dispose of your unused medications. 1.Use a drug disposal kit: the drug disposal pouch allows you to safely discard your old and unuseddrugs. Ask your nurse to give you one when you are discharged.2.Visit a local take-back location: Many local pharmacies and police departments have programs that collect old and unwanted prescriptiondrugs. Call your local pharmacy or go to http://[employer].Ink361/5Q6Wk0a to find one close to you.3.Make use of household items: Use cat litter or old coffee grounds to dispose medications if other options arenot available. Mix your drugs with these household products, seal them in an airtight container andthrow it into the garbage. Call [facility]: [phone] to be sure your drugs can be disposed of in this way. Some medicines may require a different approach.4.Never flush your medications down the toilet. IF YOU HAVE BEEN PRESCRIBED AN OPIOIDS FOR PAIN If you have been prescribed an opioid (such as hydrocodone, oxycodone or morphine), it is critical to understand the possible side effects and risks of opioid pain medications. Even when taken as directed, opioids can have several side effects including: Tolerance, meaning you might need to take more of a medication for the same pain relief. Nausea, vomiting and/or constipation. Sleepiness, dizziness, dry mouth, confusion, depression or itching. Physical dependence, meaning you have withdrawal symptoms when a medication is stopped ? this can develop within a few days. KNOW YOUR RESPONSIBILITIES It is important to know exactly how much and how often to take the opioid pain medications you are prescribed. Never take opioids in higher amounts or more often than prescribed. Do not combine opioids with alcohol or other drugs that cause drowsiness, such as benzodiazepines, also known as benzos,including diazepam and alprazolam, muscle relaxants or sleep aids. Never sell or share prescriptionopioids. This is illegal. Store opioids in a secure place and out of reach of others (including children, family, friends and visitors). The last page(s) of this document has been signed and retained as a CHART COPY Signatures Patient Education Materials Muscle Strain, Extremity Medication Leaflets My discharge plan and instructions have been reviewed and explained to me and IROSS DAVID R understand my current condition and have read and understand these discharge instructions. I have received a written copy of the plan/instructions. If I have questions, I am aware that I should contact my doctor. 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 This may be caused by a bulging spinal disk. A spinal disk is the cushion between each spinal bone (vertebrae). Or it may be caused by a narrowing of the spinal joint because of osteoarthritis and wear and tear from repeated injuries. A pinched nerve can cause numbness, tingling, deep aching, or electrical shooting pain from the side of the neck all the way down to the fingers on one side. It can also cause weakness of the musclesthat the nerve controls. A pinched nerve may start after a sudden turning or bending force (such as in a car accident) or after a simple awkward movement. In either case, muscle spasm is commonly present and adds to the pain. Home care Follow these guidelines when caring for yourself at home: Rest and relax the muscles. Use a comfortable pillow that supports your head and keeps your spine in a natural (neutral) position. Your head shouldn t be tilted forward or backward. A rolled-up towelmay help for a custom fit. When standing or sitting, keep your neck in line with your body. Keep your head up and shoulders down. Stay away from activities that require you to move your neck a lot. You can use heat and massage to help ease the pain. Take a hot shower or bath, or use a heating pad. You can also use a cold pack for relief. You can make a cold pack by wrapping a plastic bag of crushed or cubed ice in a thin towel. Try both heat and cold, and use the method that feels best. Do this for 20 minutes several times a day. You may use acetaminophen or ibuprofen to control pain, unless another pain medicine was prescribed. If you have chronic liver or kidney disease, talk with your healthcare provider before using thesemedicines. Also talk with your provider if you ve had a stomach ulcer or gastrointestinal bleeding. Reduce stress. Stress can make it longer for your pain to go away. Do any exercises or stretches that were given to you as part of your discharge plan. Wear a soft collar, if prescribed. Physical therapy and massages are known to help. You may need injections near the affected nerve or surgery for a more serious injury. Follow-up care Follow up with your healthcare provider, or as advised, if you don t start to get better after 1 week. If you have muscle weakness you should seek attention immediately. You may need more tests. Tellyour provider about any fever, chills, or weight loss. If X-rays were taken, a radiologist may look at them. You will be told of any new findings that mayaffect your care. When to seek medical advice Call your healthcare provider right away if any of these occur: Pain becomes worse even after taking prescribed pain medicine Weakness in the arm or legs Numbness in the arm gets worse Trouble breathing or swallowing [id number] [employer]. [address] [place] [address]. All rights reserved. This information is not intended as a substitute for professional medical care. Always follow yourhealthcare professional's instructions. Follow Up Care 06/28/2023 15:35:14 With:ANNA VEGA DO Address: [address] [facility] [place] [phone] When:2-4 days Comments:Return to ED if symptoms worsen With:Keep your appointment as scheduled with orthopedic spine. Address:Unknown When:2-4 days [facility] 01-23-2024 Emergency department Discharge summary Discharge Instructions Thank you for allowing [facility] to assist you with your healthcare needs. The following is importantdischarge information regarding your hospital visit. Diagnosis from Today's Visit Cervical radiculopathy Difficulty swallowing Neck pain What to Do Next Instructions from Your Care Team No qualifying data available. Post Acute Orders No qualifying data available. You Need to Schedule the Following Appointments Follow Up with ANNA VEGA DO When Within 2-4 days Why: Return to ED if symptoms worsen Where: [address] [facility] [place] [phone] Follow Up with Keep your appointment as scheduled with orthopedic spine. When Within 2-4 days Allergies NKA Medications Please ask your primary doctor or pharmacist before taking any other medication not listed, including over the counter drugs, herbal medications, vitamins and or supplements as they may interact withyour home medications. What How Much When Why Instructions Last Dose New methylPREDNISolone (Medrol Dosepak 4 mg oral tablet) Per Dosepak Instructions by mouth Every day Duration: 6 Days Printed Prescription New orphenadrine (orphenadrine 100 mg oral tablet, extended release) 1 tab(s) by mouth Two (2) times a day as needed for as needed for pain Duration: 5 Days Printed Prescription Unchanged acetaminophen (acetaminophen 500 mg oral tablet) 2 tab(s) by mouth Every 8 hours as needed for pain Duration: 30 Days Unchanged ascorbic acid (Vitamin C 1000 mg oral tablet) 1 tab(s) by mouth Once a day Unchanged DME (DME MISCellaneous) See instructions Knee osteoarthritis H/O knee surgery dx M17.9, Z98.890 dispense one walker. Unchanged DME (DME MISCellaneous) See instructions dx M17.9, Z98.890; dispense one shower chair. Unchanged DME (DME MISCellaneous) See instructions H/O knee surgery Knee osteoarthritis dx M17.9, Z98.890; dispense one toilet sear riser with grab bars Unchanged herbal/ nutritional product (turmeric 500 mg oral capsule) See instructions Unchanged hydrOXYzine (hydrOXYzine hydrochloride 25 mg oral tablet) 1 tab(s) by mouth Four (4) times a day as needed for as needed for itching Duration: 30 Days start half tablet, may increase to full tablet Unchanged methylcobalamin (Vitamin B12 Methylcobalamin 2000 mcg oral capsule) See instructions Unchanged multivitamin (Multivitamin) 1 tab(s) by mouth Every day Unchanged naproxen (naproxen 500 mg oral delayed release tablet) 1 tab(s) by mouth Two (2) times a day Duration: 90 Days fill on or after , lost pills Unchanged phytonadione (Vitamin K1) See instructions Unchanged polyethylene glycol 3350 (MiraLax oral powder for reconstitution) 17 gram(s) by mouth Once a day as needed for for hard stool Unchanged pramoxine topical (CeraVe itch Relief 1% topical lotion) 1 application Topical 5 times a day as needed for as needed for itching Duration: 30 Days Unchanged sertraline (sertraline 100 mg oral tablet) 1 tab(s) by mouth Once a day Unchanged tamsulosin (tamsulosin 0.4 mg oral capsule) 2 cap by mouth Once a day Duration: 90 Days new dose Unchanged tamsulosin (tamsulosin 0.4 mg oral capsule) 1 cap by mouth Once a day Duration: 90 Days Unchanged zinc acetate (zinc (as acetate) 25 mg oral capsule) 1 cap by mouth Once a day Please take this list to your next doctor s visit. Bring all medications you take, including over the counter medications, herbals and other supplements with you to your doctor s visit. Patients and families are reminded to discard old lists and to update any records with all medication providers or retail pharmacies. Education Materials Pinched Nerve in the Neck A pinched nerve in the neck (cervical radiculopathy) is caused when the nerve that goes from the spinal cord to the neck or arm is irritated or has pressure on it. This may be caused by a bulging spinal disk. A spinal disk is the cushion between each spinal bone (vertebrae). Or it may be caused by a narrowing of the spinal joint because of osteoarthritis and wear and tear from repeated injuries. A pinched nerve can cause numbness, tingling, deep aching, or electrical shooting pain from the side of the neck all the way down to the fingers on one side. It can also cause weakness of the musclesthat the nerve controls. A pinched nerve may start after a sudden turning or bending force (such as in a car accident) or after a simple awkward movement. In either case, muscle spasm is commonly present and adds to the pain. Home care Follow these guidelines when caring for yourself at home: Rest and relax the muscles. Use a comfortable pillow that supports your head and keeps your spine in a natural (neutral) position. Your head shouldn t be tilted forward or backward. A rolled-up towelmay help for a custom fit. When standing or sitting, keep your neck in line with your body. Keep your head up and shoulders down. Stay away from activities that require you to move your neck a lot. You can use heat and massage to help ease the pain. Take a hot shower or bath, or use a heating pad. You can also use a cold pack for relief. You can make a cold pack by wrapping a plastic bag of crushed or cubed ice in a thin towel. Try both heat and cold, and use the method that feels best. Do this for 20 minutes several times a day. You may use acetaminophen or ibuprofen to control pain, unless another pain medicine was prescribed. If you have chronic liver or kidney disease, talk with your healthcare provider before using thesemedicines. Also talk with your provider if you ve had a stomach ulcer or gastrointestinal bleeding. Reduce stress. Stress can make it longer for your pain to go away. Do any exercises or stretches that were given to you as part of your discharge plan. Wear a soft collar, if prescribed. Physical therapy and massages are known to help. You may need injections near the affected nerve or surgery for a more serious injury. Follow-up care Follow up with your healthcare provider, or as advised, if you don t start to get better after 1 week. If you have muscle weakness you should seek attention immediately. You may need more tests. Tellyour provider about any fever, chills, or weight loss. If X-rays were taken, a radiologist may look at them. You will be told of any new findings that mayaffect your care. When to seek medical advice Call your healthcare provider right away if any of these occur: Pain becomes worse even after taking prescribed pain medicine Weakness in the arm or legs Numbness in the arm gets worse Trouble breathing or swallowing [id number] [employer]. [address] [place] [address], [place] [address]. All rights reserved. This information is not intended as a substitute for professional medical care. Always follow yourhealthcare professional's instructions. Additional Information VACCINATE! IT SAVES LIVES! Members of the community who have not yet received the COVID-19 vaccine and would like to receive it can visit one of [facility] vaccine clinics. There are many vaccine clinic locations within the [facility]. For locations and available times, please visit www.gettheshot.coronavirus.[place].gov/. It is important to note that some COVID mobile vaccine clinics are held outdoors and may be canceled in rainy or stormy conditions. To learn more about pediatric vaccinations (ages 5-11), we invite you to visit the [facility] webpage. https://www.[facility].org/pages/0939-Hpmoh-Ptikfobnvby-Kqixzractw-Mnbgr-Wla stions.htmlTo learn more about the COVID-19 vaccine, we invite you to visit the CDC website for a list of frequently asked questions. https://www.cdc.gov/coronavirus/2019-ncov/vaccines/faq.html [facility] Patient Portal Access Instructions: Stay connected with your healthcare team and access your personal medical information anytime with the [facility] Patient Portal. If you would like a full copy of your medical records please contact the [facility] Medical Records Department Tuesday through Tuesday between 8a.m. and 4:30p.m. Please follow the directions below to access the portal: 1.Access the email account you provided upon registration to the hospital.2.Look for an invitation email from [facility].3.Open the email and access the invitation link: Accept Invitation to [facility].Fill in the required lugo to create your account. Sign into [email or web address] with your username and password that you created in the above steps to stay up to date. You can then view a summary of results, a summary of your visits, and the ability to download your summaries to your computer or send the information securely to a physician. Remember that your healthcare information is confidential, so carefully consider who you will allow to register on the [facility] Patient Portal for access to your information. You can also access the [facility] Patient Portal on the [employer] daija. Simply click on Health Records under SOAK ([employer]) and then click on the [facility] logo. HOW TO SAFELY DISPOSE OF PRESCRIPTION MEDICATIONS Please use one of the following methods to safely dispose of your unused medications. 1.Use a drug disposal kit: the drug disposal pouch allows you to safely discard your old and unuseddrugs. Ask your nurse to give you one when you are discharged.2.Visit a local take-back location: Many local pharmacies and police departments have programs that collect old and unwanted prescriptiondrugs. Call your local pharmacy or go to http://[employer].Ink361/0P4Px5n to find one close to you.3.Make use of household items: Use cat litter or old coffee grounds to dispose medications if other options arenot available. Mix your drugs with these household products, seal them in an airtight container andthrow it into the garbage. Call [facility]: [phone] to be sure your drugs can be disposed of in this way. Some medicines may require a different approach.4.Never flush your medications down the toilet. IF YOU HAVE BEEN PRESCRIBED AN OPIOIDS FOR PAIN If you have been prescribed an opioid (such as hydrocodone, oxycodone or morphine), it is critical to understand the possible side effects and risks of opioid pain medications. Even when taken as directed, opioids can have several side effects including: Tolerance, meaning you might need to take more of a medication for the same pain relief. Nausea, vomiting and/or constipation. Sleepiness, dizziness, dry mouth, confusion, depression or itching. Physical dependence, meaning you have withdrawal symptoms when a medication is stopped ? this can develop within a few days. KNOW YOUR RESPONSIBILITIES It is important to know exactly how much and how often to take the opioid pain medications you are prescribed. Never take opioids in higher amounts or more often than prescribed. Do not combine opioids with alcohol or other drugs that cause drowsiness, such as benzodiazepines, also known as benzos,including diazepam and alprazolam, muscle relaxants or sleep aids. Never sell or share prescriptionopioids. This is illegal. Store opioids in a secure place and out of reach of others (including children, family, friends and visitors). The last page(s) of this document has been signed and retained as a CHART COPY Signatures Patient Education Materials Radiculopathy, Cervical Medication Leaflets My discharge plan and instructions have been reviewed and explained to me and I,CYNDEE HAWKINS understand my current condition and have read and understand these discharge instructions. I have received a written copy of the plan/instructions. If I have questions, I am aware that I should contact my doctor. 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 Multiplanar reformatted images are provided for review. Automated exposure control, iterative reconstruction, and/or weight based adjustment of the mA/kV was utilized to reduce the radiation dose to as low as reasonably achievable. COMPARISON: None. HISTORY: ORDERING SYSTEM PROVIDED HISTORY: Reason for Exam: neck pain Patient complains of left-sided neck pain, soft tissue around the base of the chin, fell 1 month ago, difficulty swallowing FINDINGS: BONES/ALIGNMENT: There is no acute fracture or traumatic malalignment. DEGENERATIVE CHANGES: Mild degenerative changes of the cervical spine including disc space narrowing, mild marginal osteophytes and facet arthropathy. Varying degrees of neural foraminal narrowing throughout the cervical spine, correlate any symptoms of radiculopathy. SOFT TISSUES: There is no prevertebral soft tissue swelling. IMPRESSION: No acute abnormality of the cervical spine. Additional incidental findings as above. I have reviewed the study and agree with the report. Wang Mendez M.D. Interpreted by: Wang Mendez Preliminary Report By: Juani Rice Electronically signed By Wang Mendez Dictated Date: 06/28/2023 4:39:29 PM Prelim Date: 06/28/2023 4:51:04 PM Sign Date: 06/28/2023 7:25:48 PM Ordering Provider: GINA [facility] NAME ACCOUNT SEX AGE ADMIT DISCHARGE PT MED. RECORD# NUMBER DATE DATE TYPE SREEDHAR HAWKINS [id number] M 62 02/28/23 2 R [id number] ROOM: [facility] DATE OF : 1960 ATTENDING PHYSICIAN: Petar Kumar PROGRESS NOTE/DISCHARGE SUMMARY ATTENDING ORTHOPEDIC SURGEON: Dr. Jay Jay Li. DATE OF ADMISSION: February 28, 2023 ESTIMATED DATE OF DISCHARGE: March 01, 2023 ADMITTING DIAGNOSES: 1. Left knee primary osteoarthritis. 2. Neurological handicap - visual and auditory. 3. Mitral valve regurgitation. 4. Tricuspid valve regurgitation. 5. Major depressive disorder, in remission. 6. Anxiety. 7. Autism spectrum. 8. Developmental delay. 9. Overweight. 10. Benign prostatic hypertrophy. FINAL DIAGNOSES: 1. Left knee primary osteoarthritis, status post left total knee arthroplasty. 2. Neurological handicap - visual and auditory. 3. Mitral valve regurgitation. 4. Tricuspid valve regurgitation. 5. Major depressive disorder, in remission. 6. Anxiety. 7. Autism spectrum. 8. Developmental delay. 9. Overweight. 10. Benign prostatic hypertrophy. HOSPITAL COURSE: The patient has an ongoing history of left knee pain. After failing conservative measures, the patient opted to proceed with a left total knee arthroplasty and underwent the above-stated procedure yesterday. Intraoperative was uneventful. For details, please see the dictated operative report. The patient was transferred to the third floor. He has not yet worked with physical therapy. They will come and work with him this morning. The pain in the left knee seems to be fairly well controlled. No adverse events overnight. He currently denies chest pain, shortness of breath, dizziness, or calf pain. He seems to be doing well Page 1 of 2 ROSS SREEDHAR R Discharge Summary SREEDHAR HAWKINS : 1960 overall. PHYSICAL EXAMINATION: Vitals: Temperature is 98.3, pulse 80, respirations 18, blood pressure 135/85, and spO2 of 99% on room air. The patient is alert and oriented x3, in no acute distress at rest, breathing easily without respiratory distress. Inspection of the left knee reveals a dry waterproof dressing intact without active drainage, erythema, warmth or signs of infection. Negative Homans bilaterally without signs of DVT. The patient is able to actively plantar and dorsiflex the bilateral ankles against resistance. Sensation is intact to light touch. Pedal pulses are present and equal bilaterally. Neurovascularly intact. DIAGNOSTIC DATA: CBC results were reviewed. White blood cell count is 10.7, hemoglobin 14, hematocrit 41.5, and platelet count 225,000. BMP results were reviewed with the blood glucose elevated at 125. Postoperative x-rays of the left knee were reviewed and consistent with a Press- Fit left total knee arthroplasty The prostheses are in good position without evidence of hardware failure or loosening. Skin naun are intact over the surgical site. ASSESSMENT/PLAN: 1. Status post left total knee arthroplasty, postoperative day #1. 2. Deep venous thrombosis prophylaxis with bilateral TEDs, SCDs and aspirin 81 mg twice daily for blood clot prevention x1 month. The patient denies a history of DVT or pulmonary embolism. 3. Continue extended release morphine and Percocet for pain control. These prescriptions will be faxed to the patient's pharmacy. 4. Begin PT/OT and weightbearing as tolerated on the left lower extremity with a walker. 5. Encouraged incentive spirometry. 6. Continue discharge planning with case management. The patient has suggested that he is interested in being discharged to a care home facility. I explained that our goal is for him to succeed in physical therapy and be discharged home. He understands that if he does well in physical therapy that his insurance company likely will not cover a stay with a care home facility. He understands the risks associated with being discharged to a care home facility. He will further review these options with case management today. 7. Continue postoperative medical management per the hospitalist. 8. The patient is orthopedically stable and okay for discharge when cleared medically, having adequate pain control and doing well with physical therapy. We will plan to see him back in the office in 2 weeks for reassessment, x-rays and staple removal. Dictated By: Petar Kumar PA-C 03/01/23 07:39 JOB #: [id number] Transcribed By: mervat 03/01/23 08:31 Electronically signed by: E-sign Petar CROW 04/25/23 10:17 Page 2 of 2 [facility] Future App[facility]ments Appointment Date:07/13/2021 04:00:00 PM Scheduled Provider:ANNA VEGA DO Location:[facility] Appointment Type:PC OV Future Scheduled Tests Laboratory* Prostate Specific Antigen 08/12/20 * A1C Hemoglobin 05/27/21 * Complete Blood Count 05/27/21 * Hepatitis C Antibody IgG 08/12/20 * Complete Metabolic Panel 05/27/21 Radiology* XR Knee 3 Views Left 04/13/21 * XR Knee 3 Views Right 04/13/21 * XR Shoulder Minimum 2 Views Left 04/13/21 * XR Shoulder Minimum 2 Views Right 04/13/21 [facility] Evaluation + Plan note Future Appointments Appointment Date:05/07/2022 08:30:00 AM Scheduled Provider:ANNA VEGA DO [facility] Appointment Type:PC OV Appointment Date:07/30/2022 10:00:00 AM Scheduled Provider:ANNA VEGA DO Location:[facility] Appointment Type:PC OV Future Scheduled Tests Laboratory* Rubella Antibody 01/29/22 * A1C Hemoglobin 05/27/21 * Complete Blood Count 05/27/21 * Hepatitis C Antibody IgG 07/13/21 * Mumps Antibody 01/29/22 * Rubeola IgG Antibody 01/29/22 * Complete Metabolic Panel 05/27/21 [facility] Evaluation + Plan note Future Appointments Appointment Date:07/30/2022 04:15:00 PM Scheduled Provider:ANNA VEGA DO Location:[facility] Appointment Type:PC OV Future Scheduled Tests Laboratory* Prostate Specific Antigen 05/07/22 * A1C Hemoglobin 05/27/21 * A1C Hemoglobin 05/07/22 * Complete Blood Count 05/27/21 * Complete Blood Count 05/07/22 * Lipid Profile 05/07/22 * Complete Metabolic Panel 05/27/21 * Complete Metabolic Panel 05/07/22 [facility] Evaluation + Plan note Future Appointments Appointment Date:08/05/2022 04:30:00 PM Scheduled Provider:ANNA VEGA DO [facility] Appointment Type:PC OV [facility] Evaluation + Plan note Future Appointments Appointment Date:01/06/2023 04:30:00 PM Scheduled Provider:ANNA VEGA DO Location:[facility] Appointment Type:PC OV Diagnostic Tests Pending * Lyme AB Early Disease 10/08/22 * Lyme Disease PCR 10/08/22 [facility] Evaluation + Plan note Future Appointments Appointment Date:05/04/2023 04:30:00 PM Scheduled Provider:ANNA VEGA DO Location:[facility] Appointment Type:PC OV [facility] Evaluation + Plan note Future Appointments Appointment Date:07/18/2023 05:00:00 PM Scheduled Provider:ANNA VEGA DO Location:[facility] Appointment Type:PC OV [facility] evaluation + Plan note Future Appointments Appointment Date:07/08/2023 11:30:00 AM Scheduled Provider: Location:[facility] Appointment Type:PT Treatment [facility] Appointment Date:07/12/2023 01:30:00 PM Scheduled Provider: Location:[facility] Appointment Type:PT [facility] Appointment Date:07/13/2023 01:00:00 PM Scheduled Provider:ANNA VEGA DO Location:[facility] Appointment Type:PC OV Appointment Date:07/14/2023 11:00:00 AM Scheduled Provider: Location:[facility] Appointment Type:PT [facility] Appointment Date:07/18/2023 05:00:00 PM Scheduled Provider:ANNA VEGA DO Location:[facility] Appointment Type:PC OV Appointment Date:07/19/2023 11:00:00 AM Scheduled Provider: Location:[facility] Appointment Type:PT Treatment [facility] Appointment Date:07/22/2023 02:30:00 PM Scheduled Provider: Location:[facility] Appointment Type:[facility] Future Scheduled Tests Radiology* MRI Spine Cervical w/o Contrast 07/08/23 [facility] Evaluation + Plan note Future Appointments Appointment Date:08/17/2023 11:30:00 AM Scheduled Provider:ANNA VEGA DO Location:[facility] Appointment Type:PC OV Future Scheduled Tests Radiology* MRI Spine Cervical w/o Contrast 07/08/23 [facility] Evaluation + Plan note Future Appointments Appointment Date:09/23/2023 10:00:00 AM Scheduled Provider:ANNA VEGA DO Location:[facility] Appointment Type:PC OV Appointment Date:11/16/2023 10:30:00 AM Scheduled Provider:ANNA VEGA DO Location:[facility] Appointment Type:PC OV Future Scheduled Tests Radiology* MRI Spine Cervical w/o Contrast 07/08/23 [facility] Evaluation + Plan note Future Appointments Appointment Date:11/25/2023 09:00:00 AM Scheduled Provider: [place]:[facility] Appointment Type:PT Outpatient Evaluation Appointment Date:12/29/2023 01:30:00 PM Scheduled Provider:ANNA VEGA DO Location:[facility] Appointment Type:PC OV Future Scheduled Tests Radiology* MRI Spine Cervical w/o Contrast 07/08/23 [facility] Evaluation + Plan note Future Appointments Appointment Date:12/29/2023 01:30:00 PM Scheduled Provider:ANNA VEGA DO Location:[facility] Appointment Type:PC OV Future Scheduled Tests Radiology* MRI Spine Cervical w/o Contrast 07/08/23 [facility] evaluation + Plan note Future Appointments Appointment Date:03/02/2024 01:30:00 PM Scheduled Provider:ANNA VEGA DO Location:[facility] Appointment Type:PC Wellness Annual Future Scheduled Tests Radiology* MRI Spine Cervical w/o Contrast 07/08/23 [facility] Evaluation + Plan note Future Appointments Appointment Date:05/25/2024 10:30:00 AM Scheduled Provider:ANNA VEGA DO Location:[facility] Appointment Type:PC OV Future Scheduled Tests Radiology* MRI Spine Cervical w/o Contrast 07/08/23 [facility] Evaluation + Plan note Future Appointments Appointment Date:11/22/2024 08:45:00 AM Scheduled Provider: Location:[facility] Appointment Type:XR Esophogram W/Barium Tablet Appointment Date:01/02/2025 10:00:00 AM Scheduled Provider:ANNA VEGA DO Location:[facility] Appointment Type:PC OV Future Scheduled Tests Radiology* XR Esophogram W/Barium Tablet 11/22/24 [facility] Evaluation + Plan note Future Appointments Appointment Date:01/02/2025 10:00:00 AM Scheduled Provider:ANNA VEGA DO Location:[facility] Appointment Type:PC OV [facility] Evaluation noteNo assessment information available [facility] Work Phone: Hospital course Narrative No data available for this section [facility] Hospital Discharge instructions No data available for this section [facility] Progress note No data available for this section [facility] Summary Purpose Family History No Family History Records Found Relationship Condition Age at Onset Recorded Date/T malcolm Unknown Family History?No pe rtinent history Unknown January 21, 2014 10:31pm Family History?No pe rtinent history Unknown January 21, 2014 10:31pm Advance Directives No Advanced Directives Records Found Advance Directive Response Recorded Date/ Time Advance Directives No January 23, 2014 1:59pm Living Will No January 23 4 1:59pm Power of Bucket Operator No January 23 014 1:59pm Chief Complaint and Reason for Visit Chief Complaint SP Additional Source Comments (unrecognized sect ion and content) No Status Records FoundNo Status Records FoundNo Status Records FoundNo Status Records FoundNo Status Records FoundNo Status Records Found INFORMATION SOURCE (unrecogn ized section and content) DATE CREATED AUTHOR 11/30/[address] [facility] DATE CREATED AUTHOR AUTHOR'S ORGANIZ ATION 04/26/2023 [facility] DATE CREATED AUTHOR AUTHOR'S ORGANIZ ATION 12/30/2023 [facility] ([place]) DATE CREATED AUTHOR AUTHOR'S ORGANIZ ATION 11/17/2024 [facility] DATE CREATED AUTHOR AUTHOR'S ORGANIZ ATION 11/25/2024 [facility] DATE CREATED AUTHOR AUTHOR'S ORGANIZ ATION 11/26/[address] [facility] Goals (unrecognized section and content) Goals may be documented in a n alternate section Care Team (unrecognized sect ion and content) Care Team Personnel Name: ANNA VEGA DO Position: P4 Physician - Primary Care Member Role: Primary Care Physician Address: Address: [address] [place] [address]- Care Team Related Persons Name: NASIR HAWKINS Address: Home [address] [place] [id number] [place] Care Team Personnel Name: ANNA VEGA DO Position: P4 Physician - Primary Care Member Role: Primary Care Physician Address: Address: [address] [place] [address]- Care Team Related Persons Name: ROSS NASIR Address: Home [address] [place], [place] [id number] [place] Care Team Personnel Name: ANNA VEGA DO Position: P4 Physician - Primary Care Member Role: Primary Care Physician Address: Address: [address] [place] [address]- Care Team Related Persons Name: ROSSROSANY Address: Home [address] [place], [place] [id number] Patient Care team informatio n (unrecognized section and content) Care Team Personnel Name: ANNA VEGA DO Position: P4 Physician - Primary Care Member Role: Primary Care Physician Address: Address: [address] [place] [address]- Care Team Related Persons Name: NASIR HAWKINS Address: Home [address] [place], [place] [id number] Care Team Personnel Name: ANNA VEGA DO Position: P4 Physician - Primary Care Member Role: Primary Care Physician Address: Address: [address] [place] [address]- Care Team Related Persons Name: NASIR HAWKINS Address: Home [address] [place] [id number] [place] Care Team Personnel Name: ANNA VEGA DO Position: P4 Physician - Primary Care Member Role: Primary Care Physician Address: Address: [address] [place] [phone] [place] Care Team Related Persons Name: NASIR HAWKINS Address: Home [address] [place] [phone] [place] Care Team Personnel Name: ANNA VEGA DO Position: P4 Physician - Primary Care Member Role: Primary Care Physician Address: Address: [address] [place] [address] [place] Care Team Related Persons Name: NASIR HAWKINS Address: Home [address] [place] [id number] [place] Care Team Personnel Name: ANNA VEGA DO Position: P4 Physician - Primary Care Member Role: Primary Care Physician Address: Address: [address] [place] [address] [place] Care Team Related Persons Name: NASIR HAWKINS Address: Home [address] [place] [id number] [place] Care Team Personnel Name: ANNA VEGA DO Position: P4 Physician - Primary Care Member Role: Primary Care Physician Address: Address: [address] [place] [address] [place] Care Team Related Persons Name: NASIR HAWKINS Address: Home [address] [place] [id number] [place] Care Team Personnel Name: ANNA VEGA DO Position: P4 Physician - Primary Care Member Role: Primary Care Physician Address: Address: [address] [place] [phone] [place] Care Team Related Persons Name: NASIR HAWKINS Address: Home [address] [place] [place] [id number] [place] Care Team Personnel Name: ANNA VEGA DO Position: P4 Physician - Primary Care Member Role: Primary Care Physician Address: Address: [address] [place] [address] [place] Care Team Related Persons Name: NASIR HAWKINS Address: Home [address] [place], [place] [id number] [place] Care Team Personnel Name: ANNA VEGA DO Position: P4 Physician - Primary Care Member Role: Primary Care Physician Address: Address: [address] [place] [address] Care Team Related Persons Name: REGGIE HAWKINS Name: SHARRI HAWKINS Address: Home [address] [place], [place] [id number] Address: Temporary [address] [place], [place] [id number] Care Team Personnel Name: ANNA VEGA DO Position: P4 Physician - Primary Care Member Role: Primary Care Physician Address: Address: [address] [place] [address] Care Team Related Persons Name: REGGIE HAWKINS Name: SHARRI HAWKINS Address: Home [address] [place], [place] [id number] Address: Temporary [address] [place], [place] [id number] Care Team Personnel Name: ANNA VEGA DO Position: P4 Physician - Primary Care Member Role: Primary Care Physician Address: Address: [address] [place], [place] [id number] Care Team Related Persons Name: REGGIE HAWKINS Name: SHARRI HAWKINS Address: Home [address] [place] [id number] Address: Temporary [address] [place], [place] [id number] Care Team Personnel Name: ANNA VEGA DO Position: P4 Physician - Primary Care Member Role: Primary Care Physician Address: Address: [address] [place] [address] Care Team Related Persons Name: REGGIE HAWKINS Name: SHARRI HAWKINS Address: Home [address] [place], [place] [id number] Address: Temporary [address] [place], [place] [id number] Care Team Personnel Name: ANNA VEGA DO Position: P4 Physician - Primary Care Member Role: Primary Care Physician Address: [address] [place] [address] Telecom: Care Team Related Persons Name: REGGIE HAWKINS Name: RANDA DINERO Care Team Personnel Name: ANNA VEGA DO Position: P4 Physician - Primary Care Member Role: Primary Care Physician Address: [facility] [place] [address]- [place] Telecom: Care Team Related Persons Name: REGGIE HAWKINS Name: RANDA DINERO FOR RECORDS PERTAINING TO PATIENTS WHO ARE OR HAVE BEEN ENROLLED IN A CHEMICAL DEPENDENCY/SUBSTANCEABUSE PROGRAM, SOME INFORMATION MAY BE OMITTED. This clinical summary was aggregated from multiple sources. Caution should be exercised in using it in the provision of clinical care. This summary normalizes information from multiple sources, and as a consequence, information in this document may materially change the coding, format and clinical context of patient data. In addition, data may be omitted in some cases. CLINICAL DECISIONS SHOULD BE BASED ON THE PRIMARY CLINICAL RECORDS. [employer] provides no warranty or guarantee of the accuracy or completeness of information in this document.
[2024-11-30] MEDS: Lactated Ringers 1,000 ML 15 ML IV ×2 (05:54→14:16)
--- NOTE | 2024-11-30 06:15 | PCM.PRE.AN2 ---
ASA Classification* ASA Classification ASA Classification: 2 Assessment & Plan Anesthesia* Anesthesia Assessment Anesthesia Assessment: Discussed sedation and/or anesthesia options, risks, benefits, and alternatives with patient/parents/legal guardian/POA. Questions invited. The patient/parents/legal guardian/POA seems to understand and agrees to proceed with anesthesia plan. Reviewed the physical assessment, medical history, allergy history and patient home medications list prior to surgery/procedure/anesthetic and documented any changes. Performed airway and anesthesia risk assessments. Anesthesia Type Anesthesia Type: MAC History Source History Obtained from:: Patient, Chart and Parent/ Guardian (Sister Mirtha) Anesthesia Focused Assessment* Temperature: 97.8 F Pulse Rate: 96 Blood Pressure: 147/96 Respiratory Rate: 18 Pulse Ox: 100 Oxygen Delivery Method: Room Air Airway Assessment Mouth opens: >3 cm Mallampati Score: III Teeth Condition: Intact Neck Range of motion (ROM): Limited ROM Labs Anesthesia Preop lab: CBC WBC 5.4 K/mm3 (4.4-11.0) 09/29/23 06:01 09/29/23 RBC 3.12 M/mm3 (4.6-6.2) L 09/29/23 06:01 09/29/23 Hgb 11.0 g/dL (13.0-16.5) L 09/29/23 09:10 09/29/23 Hct 29.7 % (40-54) L 09/29/23 06:01 09/29/23 Plt Count 136 K/mm3 (150-450) L 09/29/23 06:01 09/29/23 CHEMISTRY Potassium 3.7 mmol/L (3.5-5.1) 09/27/23 06:22 09/27/23 Sodium 139 mmol/L (136-145) 09/27/23 06:22 09/27/23 Magnesium 2.1 mg/dL (1.6-2.6) 09/13/23 11:50 09/13/23 BUN 13 mg/dL (7-18) 09/27/23 06:22 09/27/23 Creatinine 0.69 mg/dL (0.70-1.30) L 09/27/23 06:22 09/27/23 Glucose 104 mg/dL (74-106) 09/27/23 06:22 09/27/23 POC Glucose 112 mg/dL (74-106) H 09/26/23 06:03 09/26/23 COAG PT 15.0 SECONDS (11.7-14.9) H 01/21/14 15:45 01/21/14 Pre-Assessment Diagnosis/Proposed Procedure Planned Operative Procedure(s): EGD Anesthesia History 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 When Was Last Pacemaker Check QUESTION #4 FULL TEXT: You/Your Family Experience fever (hyperthermia) with Anesthesia Any additional information?: No Last Oral Intake Last Oral intake: Last Oral Intake NPO since 20:00 11/30/24 05:50 Meds taken in AM with sips of No 11/30/24 05:50 water? Meds patient instructed to take am of surgery Any additional information?: No PONV PONV - senior java developer: PONV - senior java developer Female No 11/29/24 10:25 HX of Motion Sickness No 11/29/24 10:25 HX of N/V After Surgery No 11/29/24 10:25 Non-Smoker Yes 11/29/24 10:25 Duration of Surgery greater No 11/29/24 10:25 than 60 minutes Number of Risk Factors 1 11/29/24 10:25 PONV Score Low Risk 11/29/24 10:25 Any additional information?: No Height & Weight Height & Weight: Anesthesia: Height & Weight Height 5 ft 11 in 11/30/24 05:50 Weight: 94 kg 11/30/24 05:50 Body Mass Index (BMI) 28.9 11/30/24 05:50 Respiratory Assessment Respiratory Assessment - senior java developer: Respiratory Tract Infection Hx - senior java developer Hx Respiratory Tract Infection No 11/29/24 10:25 Any additional information?: No STOP Sleep Apnea STOP Sleep Apnea - senior java developer: STOP Sleep Apnea - senior java developer Hx Hypertension No 11/29/24 10:25 Hx Sleep Apnea No 11/29/24 10:25 CPAP No 11/29/24 10:25 BIPAP No 11/29/24 10:25 Do you snore loudly (louder No 11/29/24 10:25 than talking or can be heard Do you often feel tired/ No 11/29/24 10:25 fatigued/ sleepy during daytime? Has anyone observed you stop No 11/29/24 10:25 breathing during sleep? STOP Results Negative 11/29/24 10:25 QUESTION #5 FULL TEXT : Do you snore loudly (louder than talking or can be heard through closed doors)? 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 Specify any problems Hx of Preganancy in last 3 N/A 11/29/24 10:25 Months Nurse Filling Out Transfusion NBUCHER 11/29/24 10:25 & Questions: Date: 11/29/24 11/29/24 10:25 Time: 10:11/29/24 10:25 Patient unable to answer at this time (ie. confused, unrespo Any additional information?: No /Reproduction History /Reproductive History - senior java developer: /Reproductive Hx- senior java developer Hx Now No 11/29/24 10:25 Gestational Age (in weeks): EDC: Hx Hx Para Hx Section SAB No 11/29/24 10:25 Any additional information?: No Active Medications Active Medications: Current Medications Generic Name Dose Route Start Last Admin Trade Name Freq PRN Reason Stop Dose Admin Lactated Ringer's 1,000 mls @ 15 mls/hr 11/30/24 05:30 11/30/24 05:54 IV 15 mls/hr .Q48H NANNETTE Administration PFSH Medical History Autism Cancer History of Mohs micrographic surgery for skin cancer (11/26/24) Chronic constipation Wears hearing aid Wears glasses Autistic behavior Anxiety Prostate disease Back pain OCD (obsessive compulsive disorder) Non-smoker History of stress test Intellectual disability Obsessive compulsive disorder Hearing problem History of emotional problems Bone fracture Arthritis Home Medications ?Medication ?Instructions ?Recorded ?Last Taken ?Type acetaminophen 500 mg tablet 1,000 mg (2 x 500 mg) PO Q8 #0 tabs 09/29/23 Unknown Rx Held on 11/29/24. Instructions: DIFFICULTLY SWALLOWING bupropion HCl 300 mg 24 hr tablet, 300 mg PO QAM 10/23/24 Unknown History extended release gabapentin 300 mg capsule 300 mg PO TID 10/23/24 Unknown History Held on 11/29/24. Instructions: DIFFICULTLY SWALLOWING meloxicam 15 mg tablet 15 mg PO QDAY 10/23/24 Unknown History Held on 11/29/24. Instructions: DIFFICULTLY SWALLOWING pantoprazole 40 mg tablet,delayed 40 mg PO .before meals 10/23/24 Unknown History release Held on 11/29/24. Instructions: DIFFICULTLY SWALLOWING amitriptyline 25 mg tablet 25 mg PO QHS 11/29/24 Unknown History doxycycline monohydrate 100 mg 100 mg PO BID 11/29/24 Unknown History tablet sertraline 100 mg tablet 200 mg PO DAILY 11/29/24 Unknown History Allergy/AdvReac Type Severity Reaction Status Date / Time No Known Allergies Allergy Verified 11/30/24 05:49 Family History Other Arthritis Bowel disease Colon cancer Diabetes Heart disease High cholesterol Hypertension Osteoporosis Surgical History History of ankle surgery History of tonsillectomy History of colonoscopy History of left knee replacement History of total left hip replacement History of total right hip replacement History of nasal surgery Social History Smoking Status: Never smoker alcohol intake: never substance use type: does not use what type of physical activity do you participate in: walking Review of Systems (Anesthesia) ROS Narrative System reviewed and no additional complaints, except as documented.
--- NOTE | 2024-11-30 06:30 | EGD_PTH ---
PATIENT: CYNDEE HAWKINS LOC: EN U#:[id number] AGE/SX: 64/M ROOM: RE11/30/[address]: Dr. Prashanth Rodriguez DO : 1960 BED: DIS: 11/30/2024 SPEC #: [id number] RECD: 11/30/24 09:33 STATUS: ELBERT FEROZ #: [id number] JOSE ROBERTO: 11/30/24 06:[address]: Prashanth Rodriguez DEPT: SURGICAL PATHOLOGY RECD BY: Brandan Boykin ENTERED: 11/30/24 09:56 SP TYPE: EGD BIOPSY BRANDON DR: Dr. Gerard Graves DO Tissues: A - Esophagus, NOS Procedures: Immunohistochemical Stains Surgery Specimen Level IV IHC Stain ADDITIONAL HEADER OPERATION: EGD and biopsy PRE-OP DIAGNOSIS: Dysphagia, heartburn TISSUE SUBMITTED: A- Esophageal mass MICROSCOPIC DIAGNOSIS A. Esophagus, mass, biopsy: * Invasive adenocarcinoma. MICROSCOPIC DESCRIPTION Slides are reviewed. GROSS DESCRIPTION A. Received in fixative is one container labeled with the patient's name and designated Esophageal mass. The specimen consists of multiple irregular fragments of light ferro soft tissue that in aggregate measure 1 x 0.8 x 0.2 cm. The specimen is totally submitted in one cassette. SC/mr 11/30/2024 CPT:96634,[id number] ADDENDUM ADDENDUM ADDENDUM ADDENDUM ADDENDUM ADDENDUM ADDENDUM ADDENDUM ADDENDUM ADDENDUM ADDENDUM ADDENDUM ADDENDUM ADDENDUM ADDENDUM ADDENDUM ADDENDUM ADDENDUM ADDENDUM ADDENDUM ADDENDUM ADDENDUM ADDENDUM ADDENDUM ADDENDUM ADDENDUM ADDENDUM ADDENDUM ADDENDUM ADDENDUM ADDENDUM ADDENDUM ADDENDUM ADDENDUM ADDENDUM ADDENDUM ADDENDUM ADDENDUM ADDENDUM ADDENDUM ADDENDUM ADDENDUM ADDENDUM ADDENDUM ADDENDUM ADDENDUM ADDENDUM ADDENDUM ADDENDUM ADDENDUM ADDENDUM ADDENDUM ADDENDUM ADDENDUM ADDENDUM ADDENDUM ADDENDUM ADDENDUM ADDENDUM ADDENDUM ADDENDUM ADDENDUM ADDENDUM ADDENDUM ADDENDUM ADDENDUM ADDENDUM 12/11/2024 12:33 ADDENDUM 12/11/2024 12:33 ADDENDUM 02/11/2025 16:19 ADDENDUM 12/11/2024 12:33 ADDENDUM 12/11/2024 12:33 ADDENDUM 12/11/2024 12:33 This addendum is to report the results of the IHC for HER2 and MMR (mismatch repair) proteins (performed at [facility]): HER2: equivocal (2+) All controls show appropriate reactivity. HER2 protein expression in gastric and GE junction adenocarcinomas is evaluated by manual quantitative immunohistochemistry on formalin-fixed, paraffin-embedded tissues, using clone SP3 (rabbit monoclonal, [employer]) on a [place] auto-stainer. Membrane staining of tumor cells is evaluated and graded as follows: 0 (negative), no immunoreactivity (biopsy) or membranous immunoreactivity in < 10% of tumor cells (resection); 1+ (negative)?tumor cell cluster (5 cells) with faint immunoreactivity regardless of % cells stained (biopsy) or faint staining in > 10% of tumor cells but only a portion of the membrane is positive (resection); 2+ (equivocal), tumor cell cluster with weak to moderate complete, basolateral or lateral membrane immunoreactivity regardless of % cells (biopsy) or complete, basolateral or lateral membrane staining in >10% of tumor cells (resection);?3+ (positive), tumor cell cluster with strong complete, basolateral or lateral membrane staining regardless of % cells stained (biopsy) or strong complete, basolateral, or lateral membrane staining in > 10% of cells (resection) . Lancet 28:376, 2010, [place] [facility] 457:299-307, 2010). All immunohistochemistry, in situ hybridization, and histochemical tests were developed by and are performed at [facility], [address] [place] [address]. All tests reported here, except those addressing HER2/mando overexpression as a predictive marker, have not been cleared by or approved by the US Food and Drug Administration (FDA). The laboratory is regulated under CLIA as qualified to perform high-complexity testing. The tests are used for clinical purposes. They should not be regarded as investigational or for research Mismatch Repair Protein (MMR) Nuclear Expression by IHC: ? MLH1: ?Present/intact ? PMS2: ?Present/intact ? MSH2: ?Present/intact ? MSH6: ?Present/intact IHC Interpretation: No loss of nuclear expression of MMR proteins: low probability of microsatellite instability-high (MSI-H)# # There are exceptions to the above IHC interpretations. These results should not be considered in isolation, and clinical correlation with genetic counseling is recommended to assess the need for germline testing. All controls show appropriate reactivity. All immunohistochemistry, in situ hybridization, and histochemical tests were developed by and are performed at the [facility], [address], [address], [place] [address]. All Immunofluorescent (IF) ?tests were developed by and are performed at the [facility], [address] [place] [address], [place], [place] ?[address]. All tests reported here, except those addressing HER2 overexpression as a predictive marker, have not been cleared by or approved by the US Food and Drug Administration (FDA). The laboratory is regulated under CLIA as qualified to perform high-complexity testing. The tests are used for clinical purposes. They should not be regarded as investigational or for research. The mismatch repair proteins are evaluated by immunohistochemistry on formalin-fixed, paraffin-embedded tissue, using clone [id number] for MLH1, clone EP51 for PMS2, clone RED2 for MSH2, and clone EP49 for MSH6, and Tissue [employer]? Pro Detection Kit, DAB on the [employer] Tissue Adam Gen[employer] Advanced Staining System. Convincing nuclear staining in > 1% of tumor cells that is as strong as internal control is considered present/intact. Complete absence of nuclear staining in tumor cells in the presence of nuclear expression in internal control cells is considered absent/lost. Rarely a discrete area of a tumor can show loss of staining with retained nuclear expression in the adjacent tumor cells and internal control cells, which is regarded as subclonal loss and can also be of clinical significance. This addendum is added to incorporate an outside pathology consultation report. The case was examined at [facility] (#[id number]) and the following diagnosis was rendered. A. Esophagus, mass, biopsy: HER2 SCORE REPORT:HER2 SCORE: See interpretation below. Interpretation: Tumor demonstrated a HER2 / CEP17 ratio less than 2 and HER2 copy number of 4-6 by FISH. Per the 2016 guidelines for GEA tumors, this case is scored as indeterminate. See recommendations below for additional testing that may be performed to resolve HER2 score. Internal and external controls show expected signal pattern. HER2 / CEP17 RATIO: 1.3 HER2 COPY NUMBER / CELL: 4.6 Please see complete above mentioned consultation report in EMR
--- NOTE | 2024-11-30 06:30 | MASS_PTH ---
PATIENT: CYNDEE HAWKINS LOC: EN U#:[id number] AGE/SX: 64/M ROOM: RE11/30/[address]: Dr. Prashanth Rodriguez DO : 1960 BED: DIS: 11/30/2024 SPEC #: [id number] RECD: 11/30/24 15:38 STATUS: ELBERT FEROZ #: [id number] JOSE ROBERTO: 11/30/24 06:[address]: Prashanth Rodriguez DEPT: SURGICAL PATHOLOGY RECD BY: Brandan Boykin ENTERED: 11/30/24 16:21 SP TYPE: Mass OTHR DR: Dr. Gerard Graves DO Tissues: A - Esophagus, NOS Procedures: Frozen Section (charge) Surgery Specimen Level III HEADER OPERATION: EGD and biopsy PRE-OP DIAGNOSIS: Dysphagia, heartburn TISSUE SUBMITTED: A- Esophageal mass for frozen section FROZEN SECTION DIAGNOSIS Esophageal mass: Adenocarcinoma. Diagnosis rendered by Naomi Loera MD at 3:45 pm on 11/30/24. MICROSCOPIC DIAGNOSIS A. Esophagus, mass, biopsy: * Invasive adenocarcinoma. MICROSCOPIC DESCRIPTION Slides are reviewed. GROSS DESCRIPTION Received fresh for frozen section diagnosis labeled the patient's name and date of . Designated as esophageal mass for frozen section are multiple ferro tissue fragments averaging 0.3 cm. Touch preparations are made. The specimen is entirely submitted for frozen section diagnosis and subsequently placed in cassette A1 for permanent sections. [place] 11/30/2024 CPT:92724,[id number]
--- NOTE | 2024-11-30 06:51 | PCM.HP.STD ---
HPI - General General Date of Admission: 11/30/24 Date of Service: 11/30/24 Chief Complaint: dysphagia HPI Narrative CYNDEE HAWKINS, is a 64 M who presents Chief Complaint: trouble swallowing - seen in office today with his sister - dysphagia, intermittent, x6 weeks - weight loss of 10lbs in past 6 weeks - regurgitation or foods a as well - c/o odynophagia - c/o heartburn - intermittent choking with foods - sister reports pantoprazole bottle says, take before you eat and she reports he might be taking this twice a day - reports he feels his symptoms are related to stress with his mother passing - c/o chronic itching - reports screening colonoscopy was a couple years ago, uncertain when he is to repeat this - caffeine - 2 cups a day - Meloxicam QD - EtOH 1 beer a day, none in many years - denies any smoking - he is taking herbal pills AF BetaFood 0800 TID AC for GB - prescribed by chiropractor x1 week PFSH Medical History Autism Cancer History of Mohs micrographic surgery for skin cancer (11/26/24) Chronic constipation Wears hearing aid Wears glasses Autistic behavior Anxiety Prostate disease Back pain OCD (obsessive compulsive disorder) Non-smoker History of stress test Intellectual disability Obsessive compulsive disorder Hearing problem History of emotional problems Bone fracture Arthritis Home Medications ?Medication ?Instructions ?Recorded ?Last Taken ?Type acetaminophen 500 mg tablet 1,000 mg (2 x 500 mg) PO Q8 #0 tabs 09/29/23 Unknown Rx Held on 11/29/24. Instructions: DIFFICULTLY SWALLOWING bupropion HCl 300 mg 24 hr tablet, 300 mg PO QAM 10/23/24 Unknown History extended release gabapentin 300 mg capsule 300 mg PO TID 10/23/24 Unknown History Held on 11/29/24. Instructions: DIFFICULTLY SWALLOWING meloxicam 15 mg tablet 15 mg PO QDAY 10/23/24 Unknown History Held on 11/29/24. Instructions: DIFFICULTLY SWALLOWING pantoprazole 40 mg tablet,delayed 40 mg PO .before meals 10/23/24 Unknown History release Held on 11/29/24. Instructions: DIFFICULTLY SWALLOWING amitriptyline 25 mg tablet 25 mg PO QHS 11/29/24 Unknown History doxycycline monohydrate 100 mg 100 mg PO BID 11/29/24 Unknown History tablet sertraline 100 mg tablet 200 mg PO DAILY 11/29/24 Unknown History Allergy/AdvReac Type Severity Reaction Status Date / Time No Known Allergies Allergy Verified 11/30/24 05:49 Family History Other Arthritis Bowel disease Colon cancer Diabetes Heart disease High cholesterol Hypertension Osteoporosis Surgical History History of ankle surgery History of tonsillectomy History of colonoscopy History of left knee replacement History of total left hip replacement History of total right hip replacement History of nasal surgery Social History Smoking Status: Never smoker alcohol intake: never substance use type: does not use what type of physical activity do you participate in: walking ROS Constitutional Constitutional: Denies fatigue, fever(s), poor appetite, weight gain or weight loss Gastrointestinal Gastrointestinal: Denies belching, bloating, change in bowel habits, change in stool character, chewing difficulty, coffee ground emesis, constipation, cramping, diarrhea, dyspepsia, dysphagia, early satiety, excessive flatus, fecal incontinence, heartburn, hematemesis, hematochezia, hemorrhoids, loose stools, melena, nausea, odynophagia, rectal bleeding, tenesmus, vomiting or weight changes Vital Signs Vital Signs Vital Signs: 11/30/24 05:50 11/30/24 05:50 11/30/24 06:19 Temperature 97.8 F 97.8 F Temperature Source Temporal Pulse Rate 96 96 Respiratory Rate 18 18 Respiratory Pattern Normal Blood Pressure 147/96 H 147/96 H Blood Pressure Mean 113 Blood Pressure Source Monitor Blood Pressure Position Sitting Blood Pressure Location Left Arm Pulse Ox 100 100 Oxygen Delivery Method Room Air Room Air Weight Weight: 207 lb 3.752 oz Body Mass Index (BMI) 28.9 Physical Exam Const alert, oriented x3, no apparent distress and healthy appearing General Appearance: cooperative GI normal to inspection, nondistended, normoactive bowel sounds, soft to palpation, non-tender and non-distended Percussion: normal to percussion Rectal Exam: deferred Assessment & Plan Assessment/Plan (1) Dysphagia: (2) Heartburn: PLAN: Assessment and Plan Assessment and Plan (1) Dysphagia: Status: Acute (2) Heartburn: Status: Acute Plan: Discontinue AF BetaFood 0800 TID AC Orders: Orders Swallowing Function w/Video Today R12 - Heartburn, R13.10 - Dysphagia, unspecified Esophagus Dual Contrast Today R12 - Heartburn, R13.10 - Dysphagia, unspecified Medications: Discontinued hydroxyzine HCl Discontinued Reason: Pt no longer taking 20 mg PO TID PRN for anxiety F42.9 - Obsessive-compulsive disorder, unspecified, F79 - Unspecified intellectual disabilities Plan 64-year-old male presents for initial consultation with complaints of dysphagia. His past medical history is significant for autism and he is seen in the office today with his sister. He complains of intermittent episodes of dysphagia with solid foods and regurgitation with solids and liquids for the past 6 weeks. He also complains of heartburn, a dyne aphasia, and intermittent choking episodes. He was started on pantoprazole 40 mg approximately 2 weeks ago and denies any symptomatic improvement. He denies any weight loss, nausea, vomiting, or abdominal pain. He reports starting an herbal supplement 3 times daily AC 1 week ago prescribed by his chiropractor for gallbladder function; he denies any improvement and will discontinue at this time. I have scheduled him for MBS, esophagram, and EGD. He will follow-up in the office post procedures. Note: [employer] speech recognition furniture crater software was used to create portions of this document. Sound-alike and misspelled words, as well as other furniture crater errors may be contained in the documentation. Patient Instructions: Discontinue Gallbladder supplement
--- NOTE | 2024-11-30 07:24 | PCM.POST.ANE ---
Anesthesia: Postop Eval I Current Vital Signs Temperature: 96.3 F Pulse Rate: 87 Blood Pressure: 98/60 Respiratory Rate: 20 Pulse Ox: 93 (2LO2) Assessment Airway patent: Yes Spontaneous unlabored respirations: Yes nausea: No Vomiting: No Anesthesia Complication: No Fluid Hydration Crystalloid volume administer (ml): 200 Total IV fluid infused: 200 Progress Note Anesthesia document: Postop Eval 1 completed: Yes
--- NOTE | 2024-11-30 07:29 | OP.EGD_ITS ---
Patient Name: Francisco Mosher Procedure Date: 11/30/2024 6:37 AM Date of : 1960 Age: 64 Procedure: Upper GI endoscopy Indications: Dysphagia Providers: Prashanth Rodriguez DO Referring MD: Gearrd Graves Do Medicines: Monitored Anesthesia Care Patient Profile: This is a 64 year old male. Refer to note in patient chart for documentation of history and physical. Patient has symptoms of dysphagia with both liquids and solids. Complications: No immediate complications. Procedure: Pre-Anesthesia Assessment: - Prior to the procedure, a History and Physical was performed, and patient medications and allergies were reviewed. The patient is competent. The risks and benefits of the procedure and the sedation options and risks were discussed with the patient. All questions were answered and informed consent was obtained. Patient identification and proposed procedure were verified by the physician in the pre-procedure area. Mental Status Examination: alert and oriented. Airway Examination: normal oropharyngeal airway and neck mobility. Respiratory Examination: clear to auscultation. CV Examination: normal. Prophylactic Antibiotics: The patient does not require prophylactic antibiotics. Prior Anticoagulants: The patient has taken no anticoagulant or antiplatelet agents except for NSAID medication. ASA Grade Assessment: II - A patient with mild systemic disease. After reviewing the risks and benefits, the patient was deemed in satisfactory condition to undergo the procedure. The anesthesia plan was to use monitored anesthesia care (MAC). Immediately prior to administration of medications, the patient was re-assessed for adequacy to receive sedatives. The heart rate, respiratory rate, oxygen saturations, blood pressure, adequacy of pulmonary ventilation, and response to care were monitored throughout the procedure. The physical status of the patient was re-assessed after the procedure. After obtaining informed consent, the endoscope was passed under direct vision. Throughout the procedure, the patient's blood pressure, pulse, and oxygen saturations were monitored continuously. The Endoscope was introduced through the mouth, and advanced to the second part of duodenum. The upper GI endoscopy was accomplished without difficulty. The patient tolerated the procedure well. Scope In: 7:04:21 AM Scope Out: 7:15:22 AM Total Procedure Duration Time 0 hours 11 minutes 1 second Findings: A large, ulcerating mass with bleeding and no stigmata of recent bleeding was found in the lower third of the esophagus, 36 cm from the incisors. The mass was completely obstructing and circumferential. Biopsies were taken with a cold forceps for histology. Verification of patient identification for the specimen was done. Estimated blood loss was minimal. No gross lesions were noted in the entire examined stomach. No gross lesions were noted in the duodenal bulb. 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 Biopsied. - No gross lesions in the entire stomach. - No gross lesions in the duodenal bulb. Recommendation: - Discharge patient to home. - Resume previous diet. - Continue present medications. - Await pathology results. Procedure Code(s): --- Professional --- 32059, Esophagogastroduodenoscopy, flexible, transoral; with biopsy, single or multiple CPT copyright 2021 [employer]. All rights reserved. The codes documented in this report are preliminary and upon conveyancer review may be revised to meet current compliance requirements. Prashanth Rodriguez DO 11/30/2024 7:28:50 AM This report has been signed electronically. Number of Addenda: 0 Note Initiated On: 11/30/2024 6:37 AM
--- NOTE | 2024-11-30 07:29 | OP.CCLET_ITS ---
11/30/2024 Gerard Graves Do Re : Upper GI endoscopy procedure for Francisco Mosher [place] This procedure was performed on Saturday, November 30, 2024. 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 Biopsied. - No gross lesions in the entire stomach. - No gross lesions in the duodenal bulb. Recommendations : - Discharge patient to home. - Resume previous diet. - Continue present medications. - Await pathology results. My findings are described in the full procedure note, which is enclosed. If I can be of further assistance, please feel free to contact me at . Sincerely, Prashanth Rodriguez DO 11/30/2024 7:28:50 AM This report has been signed electronically.
--- NOTE | 2024-11-30 09:03 | POSTOPAN2_ITS ---
Anesthesia Postop Eval I Sum Postop Eval Completion status Anesthesia document: Postop Eval 1 completed: Yes Anesthesia Postop Eval I Summary Anesthesia Postop Eval I Summary: Anesthesia Postop Eval I: Assessment Summary Airway patent Yes 11/30/24 07:24 [email or web address] Spontaneous unlabored Yes 11/30/24 07:24 RIG [email or web address].CSIR respirations Mental status nausea No 11/30/24 07:24 RIG WELDER.CSIR Vomiting No 11/30/24 07:24 RIG [email or web address].CSIR Anesthesia Postop Eval I: Fluid Summary Crystalloid volume administer 200 11/30/24 07:24 RIG [email or web address].CSIR (ml) Colloids volume administered ( ml) Blood Product volume administered (ml) Total IV fluid infused 200 11/30/24 07:24 RIG WELDER.CSIR Anesthesia Postop Eval I: Summary Notes Anesthesia Complication No 11/30/24 07:24 RIG WELDER.CSIR Anesthesia Complication Comment: Post-operative progress note Anesthesia: Postop Eval II Evaluation Mental status: Awake Pain Level: 0 nausea: No Vomiting: No
--- NOTE | 2024-11-30 09:03 | PCM.POSTANE2 ---
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 [email or web address].[email or web address] Spontaneous unlabored Yes 11/30/24 07:24 GAS METER INSTALLER HELPER.[email or web address] respirations Mental status nausea No 11/30/24 07:24 GAS METER INSTALLER HELPER.CSIR Vomiting No 11/30/24 07:24 GAS METER INSTALLER HELPER.[email or web address] Anesthesia Postop Eval I: Fluid Summary Crystalloid volume administer 200 11/30/24 07:24 GAS METER INSTALLER HELPER.CSIR (ml) Colloids volume administered ( ml) Blood Product volume administered (ml) Total IV fluid infused 200 11/30/24 07:24 GAS METER INSTALLER HELPER.CSIR Anesthesia Postop Eval I: Summary Notes Anesthesia Complication No 11/30/24 07:24 GAS METER INSTALLER HELPER.CSIR Anesthesia Complication Comment: Post-operative progress note Anesthesia: Postop Eval II Evaluation Mental status: Awake Pain Level: 0 nausea: No Vomiting: No
--- NOTE | 2024-11-30 14:51 | PCM.PRE.AN2 ---
ASA Classification* ASA Classification ASA Classification: 3 and E Assessment & Plan Anesthesia* Anesthesia Assessment Anesthesia Assessment: Discussed sedation and/or anesthesia options, risks, benefits, and alternatives with patient/parents/legal guardian/POA. Questions invited. The patient/parents/legal guardian/POA seems to understand and agrees to proceed with anesthesia plan. Reviewed the physical assessment, medical history, allergy history and patient home medications list prior to surgery/procedure/anesthetic and documented any changes. Performed airway and anesthesia risk assessments. Anesthesia Type Anesthesia Type: MAC History Source History Obtained from:: Patient and Chart Anesthesia Focused Assessment* Temperature: 98.2 F Pulse Rate: 88 Blood Pressure: 138/90 Respiratory Rate: 18 Pulse Ox: 98 Oxygen Delivery Method: Room Air Airway Assessment Mouth opens: >3 cm Mallampati Score: I Teeth Condition: Intact Neck Range of motion (ROM): Full ROM Labs Anesthesia Preop lab: CBC WBC 5.4 K/mm3 (4.4-11.0) 09/29/23 06:01 09/29/23 RBC 3.12 M/mm3 (4.6-6.2) L 09/29/23 06:01 09/29/23 Hgb 11.0 g/dL (13.0-16.5) L 09/29/23 09:10 09/29/23 Hct 29.7 % (40-54) L 09/29/23 06:01 09/29/23 Plt Count 136 K/mm3 (150-450) L 09/29/23 06:01 09/29/23 CHEMISTRY Potassium 3.7 mmol/L (3.5-5.1) 09/27/23 06:22 09/27/23 Sodium 139 mmol/L (136-145) 09/27/23 06:22 09/27/23 Magnesium 2.1 mg/dL (1.6-2.6) 09/13/23 11:50 09/13/23 BUN 13 mg/dL (7-18) 09/27/23 06:22 09/27/23 Creatinine 0.69 mg/dL (0.70-1.30) L 09/27/23 06:22 09/27/23 Glucose 104 mg/dL (74-106) 09/27/23 06:22 09/27/23 POC Glucose 112 mg/dL (74-106) H 09/26/23 06:03 09/26/23 COAG PT 15.0 SECONDS (11.7-14.9) H 01/21/14 15:45 01/21/14 Pre-Assessment Diagnosis/Proposed Procedure Planned Operative Procedure(s): EGD Anesthesia History 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 When Was Last Pacemaker Check QUESTION #4 FULL TEXT: You/Your Family Experience fever (hyperthermia) with Anesthesia Last Oral Intake Last Oral intake: Last Oral Intake NPO since 19:00 11/30/24 14:13 Meds taken in AM with sips of No 11/30/24 05:50 water? Meds patient instructed to take am of surgery PONV PONV - volleyball player: PONV - volleyball player Female No 11/29/24 10:25 HX of Motion Sickness No 11/29/24 10:25 HX of N/V After Surgery No 11/29/24 10:25 Non-Smoker Yes 11/29/24 10:25 Duration of Surgery greater No 11/29/24 10:25 than 60 minutes Number of Risk Factors 1 11/29/24 10:25 PONV Score Low Risk 11/29/24 10:25 Height & Weight Height & Weight: Anesthesia: Height & Weight Height 5 ft 11 in 11/30/24 14:13 Weight: 94 kg 11/30/24 14:13 Body Mass Index (BMI) 28.9 11/30/24 14:13 Respiratory Assessment Respiratory Assessment - volleyball player: Respiratory Tract Infection Hx - volleyball player Hx Respiratory Tract Infection No 11/29/24 10:25 STOP Sleep Apnea STOP Sleep Apnea - volleyball player: STOP Sleep Apnea - volleyball player Hx Hypertension No 11/29/24 10:25 Hx Sleep Apnea No 11/30/24 07:35 CPAP No 11/30/24 07:22 BIPAP No 11/29/24 10:25 Do you snore loudly (louder No 11/29/24 10:25 than talking or can be heard Do you often feel tired/ No 11/29/24 10:25 fatigued/ sleepy during daytime? Has anyone observed you stop No 11/29/24 10:25 breathing during sleep? STOP Results Negative 11/30/24 07:22 QUESTION #5 FULL TEXT : Do you snore loudly (louder than talking or can be heard through closed doors)? 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 Specify any problems Hx of Preganancy in last 3 N/A 11/29/24 10:25 Months Nurse Filling Out Transfusion NBUCHER 11/29/24 10:25 & Questions: Date: 11/29/24 11/29/24 10:25 Time: 10:11/29/24 10:25 Patient unable to answer at this time (ie. confused, unrespo /Reproduction History /Reproductive History - volleyball player: /Reproductive Hx- volleyball player Hx Now No 11/29/24 10:25 Gestational Age (in weeks): EDC: Hx Hx Para Hx Section SAB No 11/29/24 10:25 Active Medications Active Medications: Current Medications Generic Name Dose Route Start Last Admin Trade Name Freq PRN Reason Stop Dose Admin Lactated Ringer's 1,000 mls @ 15 mls/hr 11/30/24 14:15 11/30/24 14:16 IV 15 mls/hr .Q48H NANNETTE Administration PFSH Medical History Autism Cancer History of Mohs micrographic surgery for skin cancer (11/26/24) Chronic constipation Wears hearing aid Wears glasses Autistic behavior Anxiety Prostate disease Back pain OCD (obsessive compulsive disorder) Non-smoker History of stress test Intellectual disability Obsessive compulsive disorder Hearing problem History of emotional problems Bone fracture Arthritis Home Medications ?Medication ?Instructions ?Recorded ?Last Taken ?Type acetaminophen 500 mg tablet 1,000 mg (2 x 500 mg) PO Q8 #0 tabs 09/29/23 Unknown Rx Held on 11/29/24. Instructions: DIFFICULTLY SWALLOWING bupropion HCl 300 mg 24 hr tablet, 300 mg PO QAM 10/23/24 Unknown History extended release gabapentin 300 mg capsule 300 mg PO TID 10/23/24 Unknown History Held on 11/29/24. Instructions: DIFFICULTLY SWALLOWING meloxicam 15 mg tablet 15 mg PO QDAY 10/23/24 Unknown History Held on 11/29/24. Instructions: DIFFICULTLY SWALLOWING pantoprazole 40 mg tablet,delayed 40 mg PO .before meals 10/23/24 Unknown History release Held on 11/29/24. Instructions: DIFFICULTLY SWALLOWING amitriptyline 25 mg tablet 25 mg PO QHS 11/29/24 Unknown History doxycycline monohydrate 100 mg 100 mg PO BID 11/29/24 Unknown History tablet sertraline 100 mg tablet 200 mg PO DAILY 11/29/24 Unknown History Allergy/AdvReac Type Severity Reaction Status Date / Time No Known Allergies Allergy Verified 11/30/24 14:11 Family History Other Arthritis Bowel disease Colon cancer Diabetes Heart disease High cholesterol Hypertension Osteoporosis Surgical History History of ankle surgery History of tonsillectomy History of colonoscopy History of left knee replacement History of total left hip replacement History of total right hip replacement History of nasal surgery Social History Smoking Status: Never smoker alcohol intake: never substance use type: does not use what type of physical activity do you participate in: walking Review of Systems (Anesthesia) ROS Narrative System reviewed and no additional complaints, except as documented.
--- NOTE | 2024-11-30 15:05 | HP.PCM_ITS ---
HPI - General General Date of Admission: 11/30/24 Date of Service: 11/30/24 Chief Complaint: dysphagia secondary to suspected esophageal cancer HPI Narrative CYNDEE HAWKINS, is a 64 M who presents for repeat upper endoscopy after undergoing an upper endoscopy this morning discovered to have a severe esophageal stricture that cannot be transversed likely secondary to esophageal cancer. He comes back in today for gross specimen biopsy and analysis by pathology at the bedside along with esophageal stenting. [facility] Medical History Autism Cancer History of Mohs micrographic surgery for skin cancer (11/26/24) Chronic constipation Wears hearing aid Wears glasses Autistic behavior Anxiety Prostate disease Back pain OCD (obsessive compulsive disorder) Non-smoker History of stress test Intellectual disability Obsessive compulsive disorder Hearing problem History of emotional problems Bone fracture Arthritis Home Medications ?Medication ?Instructions ?Recorded ?Last Taken ?Type acetaminophen 500 mg tablet 1,000 mg (2 x 500 mg) PO Q 8 #0 tabs 09/29/23 Unknown Rx Held on 11/29/24. Instructions: DIFFICULTLY SWALLOWING bupropion HCl 300 mg 24 hr tablet, 300 mg PO QAM 10/23 Unknown History extended release gabapentin 300 mg capsule 300 mg PO TID 10/23/24 Unkno wn History Held on 11/29/24. Instructions: DIFFICULTLY SWALLOWING meloxicam 15 mg tablet 15 mg PO QDAY 10/23/24 Unkno wn History Held on 11/29/24. Instructions: DIFFICULTLY SWALLOWING pantoprazole 40 mg tablet,delayed 40 mg PO .before jessika ls 10/23/24 Unknown History release Held on 11/29/24. Instructions: DIFFICULTLY SWALLOWING amitriptyline 25 mg tablet 25 mg PO QHS 11/29/24 Unkno wn History doxycycline monohydrate 100 mg 100 mg PO BID 11/29/24 Unknown History tablet sertraline 100 mg tablet 200 mg PO DAILY 11/29/24 Unk nown History Allergy/AdvReac Type Severity Reaction Status Date / Time No Known Allergies Allergy Verified 11/30/24 14:11 Family History Other Arthritis Bowel disease Colon cancer Diabetes Heart disease High cholesterol Hypertension Osteoporosis Surgical History History of ankle surgery History of tonsillectomy History of colonoscopy History of left knee replacement History of total left hip replacement History of total right hip replacement History of nasal surgery Social History Smoking Status: Never smoker alcohol intake: never substance use type: does not use what type of physical activity do you participate in: walking ROS Constitutional Constitutional: Denies fatigue, fever(s), poor appetite, weight gain or weight loss Gastrointestinal Gastrointestinal: Denies belching, bloating, change in bowel habits, change in stool character, chewing difficulty, coffee ground emesis, constipation, cramping, diarrhea, dyspepsia, dysphagia, early satiety, excessive flatus, fecal incontinence, heartburn, hematemesis, hematochezia, hemorrhoids, loose stools, melena, nausea, odynophagia, rectal bleeding, tenesmus, vomiting or weight changes Vital Signs Vital Signs Vital Signs: 11/30/24 05:50 11/30/24 05:50 11/30/24 06:19 Temperature 97.8 F 97.8 F Temperature Source Temporal Pulse Rate 96 96 Respiratory Rate 18 18 Respiratory Pattern Normal Blood Pressure 147/96 H 147/96 H Blood Pressure Mean 113 Blood Pressure Source Monitor Blood Pressure Position Sitting Blood Pressure Location Left Arm Baseline BP Pulse Ox 100 100 Oxygen Delivery Method Room Air Room Air 11/30/24 07:22 11/30/24 07:24 11/30/24 07:25 Temperature 96.3 F L 96.3 F L 96.7 F L Temperature Source Temporal Temporal Pulse Rate 86 87 86 Respiratory Rate 14 20 H 16 Respiratory Pattern Normal Blood Pressure 98/60 98/60 104/73 Blood Pressure Mean 72 83 Blood Pressure Source Monitor Monitor Blood Pressure Position Semi-Fowlers Semi-Fowlers Blood Pressure Location Right Arm Right Arm Baseline BP 147/96 147/96 Pulse Ox 88 93 94 Oxygen Delivery Method Room Air Room Air 11/30/24 07:30 11/30/24 07:35 11/30/24 07:50 Temperature 97.1 F L Temperature Source Temporal Pulse Rate 90 85 Respiratory Rate 16 16 Respiratory Pattern Normal Blood Pressure 121/94 H 133/90 H Blood Pressure Mean 103 104 Blood Pressure Source Monitor Monitor Blood Pressure Position Semi-Fowlers Semi-Fowlers Blood Pressure Location Right Arm Right Arm Baseline BP 147/96 147/96 Pulse Ox 94 93 Oxygen Delivery Method Room Air Room Air 11/30/24 08:10 11/30/24 14:13 11/30/24 14:13 Temperature 98.2 F Temperature Source Temporal Pulse Rate 88 Respiratory Rate 18 Respiratory Pattern Normal Blood Pressure 138/90 H Blood Pressure Mean 106 Blood Pressure Source Monitor Blood Pressure Position Sitting Blood Pressure Location Left Arm Baseline BP 147/96 Pulse Ox 98 Oxygen Delivery Method Room Air 11/30/24 14:54 Temperature 98.2 F Temperature Source Pulse Rate 88 Respiratory Rate 18 Respiratory Pattern Blood Pressure 138/90 H Blood Pressure Mean Blood Pressure Source Blood Pressure Position Blood Pressure Location Baseline BP Pulse Ox 98 Oxygen Delivery Method Room Air Weight Weight: 207 lb 3.752 oz Body Mass Index (BMI) 28.9 Physical Exam Const alert, oriented x3, no apparent distress and healthy appearing General Appearance: cooperative GI normal to inspection, nondistended, normoactive bowel sounds, soft to palpation, non-tender and non-distended Percussion: normal to percussion Rectal Exam: deferred Assessment & Plan Assessment/Plan (1) Dysphagia: (2) Heartburn: PLAN: Assessment and Plan Assessment and Plan (1) Dysphagia: Status: Acute (2) Heartburn: Status: Acute Plan: Discontinue AF BetaFood 0800 TID AC Orders: Orders Swallowing Function w/Video Today R12 - Heartburn, R13.10 - Dysphagia, unspecified Esophagus Dual Contrast Today R12 - Heartburn, R13.10 - Dysphagia, unspecified Medications: Discontinued hydroxyzine HCl Discontinued Reason: Pt no longer taking 20 mg PO TID PRN for anxiety F42.9 - Obsessive-compulsive disorder, unspecified, F79 - Unspecified intellectual disabilities Plan 64-year-old male presents for initial consultation with complaints of dysphagia. His past medical history is significant for autism and he is seen in the office today with his sister. He complains of intermittent episodes of dysphagia with solid foods and regurgitation with solids and liquids for the past 6 weeks. He also complains of heartburn, a dyne aphasia, and intermittent choking episodes. He was started on pantoprazole 40 mg approximately 2 weeks ago and denies any symptomatic improvement. He denies any weight loss, nausea, vomiting, or abdominal pain. He reports starting an herbal supplement 3 times daily AC 1 week ago prescribed by his chiropractor for gallbladder function; he denies any improvement and will discontinue at this time. We will perform an upper endoscopy with biopsies and placement of esophageal stent. The patient and his sister were explained alternatives, risk and benefits include not withstanding bleeding, infection, subs, perforation, need for return to . He will have an ASA of 3.. Note: [employer] speech recognition central office equipment engineer software was used to create portions of this document. Sound-alike and misspelled words, as well as other central office equipment engineer errors may be contained in the documentation. Patient Instructions: Discontinue Gallbladder supplement
--- NOTE | 2024-11-30 15:15 | RAD_ITS ---
PROCEDURE: ERCP BILIARY/PANCREAS; O.R. FLUORO FOR C-ARM 11/30/2024 REASON FOR EXAM: STENT TECHNIQUE: Fluoroscopy for ERCP. 3 fluoroscopic images were also obtained. COMPARISON: None. RAD/O.R. Fluoro for C-Arm IMPRESSION: Fluoroscopy for ERCP. 3 fluoroscopic images were also obtained. Reading Location: [place] [id number]
--- NOTE | 2024-11-30 15:15 | RAD_ITS ---
PROCEDURE: ERCP BILIARY/PANCREAS; O.R. FLUORO FOR C-ARM 11/30/2024 REASON FOR EXAM: STENT TECHNIQUE: Fluoroscopy for ERCP. 3 fluoroscopic images were also obtained. COMPARISON: None. RAD/ERCP Biliary/Pancreas IMPRESSION: Fluoroscopy for ERCP. 3 fluoroscopic images were also obtained. Reading Location: [place] [id number]
--- NOTE | 2024-11-30 16:08 | PCM.POST.ANE ---
Anesthesia: Postop Eval I Current Vital Signs Temperature: 36 F Pulse Rate: 89 Blood Pressure: 147/93 Respiratory Rate: 14 Pulse Ox: 96 Assessment Airway patent: Yes Spontaneous unlabored respirations: Yes nausea: No Vomiting: No Anesthesia Complication: No Fluid Hydration Crystalloid volume administer (ml): 900 Total IV fluid infused: 900 Progress Note Anesthesia document: Postop Eval 1 completed: Yes
--- NOTE | 2024-11-30 16:12 | OP.EGD_ITS ---
Patient Name: Francisco Mosher Procedure Date: 11/30/2024 3:06 PM Date of : 1960 Age: 64 Procedure: Upper GI endoscopy Indications: Iron deficiency anemia, Dysphagia Providers: Prashanth Rodriguez DO Referring MD: Gerard Graves Do Medicines: Monitored Anesthesia Care Patient Profile: This is a 64 year old male. Refer to note in patient chart for documentation of history and physical. Patient has symptoms of dysphagia with both liquids and solids. The symptoms first began September. Complications: No immediate complications. Procedure: Pre-Anesthesia Assessment: - Prior to the procedure, a History and Physical was performed, and patient medications and allergies were reviewed. The patient is competent. The risks and benefits of the procedure and the sedation options and risks were discussed with the patient. All questions were answered and informed consent was obtained. Patient identification and proposed procedure were verified by the physician in the pre-procedure area. Mental Status Examination: alert and oriented. Airway Examination: normal oropharyngeal airway and neck mobility. Respiratory Examination: clear to auscultation. CV Examination: normal. Prophylactic Antibiotics: The patient does not require prophylactic antibiotics. Prior Anticoagulants: The patient has taken no anticoagulant or antiplatelet agents except for NSAID medication. ASA Grade Assessment: II - A patient with mild systemic disease. After reviewing the risks and benefits, the patient was deemed in satisfactory condition to undergo the procedure. The anesthesia plan was to use monitored anesthesia care (MAC). Immediately prior to administration of medications, the patient was re-assessed for adequacy to receive sedatives. The heart rate, respiratory rate, oxygen saturations, blood pressure, adequacy of pulmonary ventilation, and response to care were monitored throughout the procedure. The physical status of the patient was re-assessed after the procedure. After obtaining informed consent, the endoscope was passed under direct vision. Throughout the procedure, the patient's blood pressure, pulse, and oxygen saturations were monitored continuously. The Endoscope was introduced through the mouth, and advanced to the second part of duodenum. The upper GI endoscopy was accomplished without difficulty. The patient tolerated the procedure well. Scope In: 3:28:43 PM Scope Out: 3:58:48 PM Total Procedure Duration Time 0 hours 30 minutes 5 seconds Findings: A large, fungating mass with bleeding and no stigmata of recent bleeding was found in the lower third of the esophagus, 36 cm from the incisors. The mass was completely obstructing and circumferential. Biopsies were taken with a cold forceps for histology. Verification of patient identification for the specimen was done. Estimated blood loss was minimal. This was stented with an 18 mm x 12.3 cm WallFlex covered stent under fluoroscopic guidance, proximal margin at 35 cm and distal margin at 44 cm from the incisors. No gross lesions were noted in the entire examined stomach. No gross lesions were noted in the second portion of the duodenum. 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 Biopsied. Prosthesis placed. - No gross lesions in the entire stomach. - No gross lesions in the second portion of the duodenum. Recommendation: - Discharge patient to home. - Resume previous diet. - Continue present medications. - Await pathology results. Procedure Code(s): --- Professional --- 16340, Esophagogastroduodenoscopy, flexible, transoral; with placement of endoscopic stent (includes pre- and post-dilation and guide wire passage, when performed) 60097, 59,51, Esophagogastroduodenoscopy, flexible, transoral; with biopsy, single or multiple 87560, Intraluminal dilation of strictures and/or obstructions (eg, esophagus), radiological supervision and interpretation CPT copyright 2021 [employer]. All rights reserved. The codes documented in this report are preliminary and upon groover and turner review may be revised to meet current compliance requirements. Prashanth Rodriguez DO 11/30/2024 4:11:13 PM This report has been signed electronically. Number of Addenda: 0 Note Initiated On: 11/30/2024 3:06 PM
--- NOTE | 2024-11-30 16:12 | OP.CCLET_ITS ---
11/30/2024 Gerard Graves Do Re : Upper GI endoscopy procedure for Francisco Mosher [place] This procedure was performed on Saturday, November 30, 2024. 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 Biopsied. Prosthesis placed. - No gross lesions in the entire stomach. - No gross lesions in the second portion of the duodenum. Recommendations : - Discharge patient to home. - Resume previous diet. - Continue present medications. - Await pathology results. My findings are described in the full procedure note, which is enclosed. If I can be of further assistance, please feel free to contact me at . Sincerely, Prashanth Rodriguez, 11/30/2024 4:11:13 PM This report has been signed electronically.
== END 2024-11-30 17:02 | disposition home or self-care (01) ==
LOC: EN 05:27 → AC 05:30
PROVIDERS: PCP Student in an Organized Health Care Education/Training Program; Referring Provider Student in an Organized Health Care Education/Training Program; Visit Provider Internal Medicine Gastroenterology
PROC: 0DJ08ZZ Inspection of Upper Intestinal Tract, Via Natural or Artificial Opening Endoscopic (ICD-10-PCS; CPT 43235; principal; 2024-11-30 06:25)
DX: C15.5 Malignant neoplasm of lower third of esophagus (principal); Z80.0 Family history of malignant neoplasm of digestive organs; D50.9 Iron deficiency anemia, unspecified; Z79.899 Other long term (current) drug therapy; F41.9 Anxiety disorder, unspecified; F84.0 Autistic disorder
CPT/HCPCS: 43239; 43266; 74330; 76000; 88304; 88305; 88331; J2405

== ENCOUNTER 2024-12-01 07:49 | Emergency (ER) | payer OTHER, SELFPAY ==
[2024-12-01] VITALS (10 sets, daily range): BP systolic 133–156; BP diastolic 83–97; PULSE 73–110; RESP 20–26; TEMP 35.8–36.6; O2SAT 97–100; BMI 29.2
--- OUTSIDE RECORDS SUMMARY | 2024-12-01 08:09 | XMS RPT_ITS | CCD ---
Author Organization [facility] Care Team Providers Care Guitar Technician Name Role Phone VALDO MILLER Unavailable Unavail able VALDO MILLER Unavailable Unavail able ANNA VEGA DO Primary Care Physician [phone] Admitting Unavailable JAY JAY LI DR Primary Care Unavailable JAY JAY LI DR Attending Unavailable JAIME ROACH DO Consulting Unavailable PROVIDER, UNKNOWN Consulting Unavailable JAY JAY LI DR Primary Care Unavailable JAY JAY LI DR Attending Unavailable JAIME ROACH DO Consulting Unavailable JAY JAY LI DR Admitting Unavailable PROVIDER, UNKNOWN Consulting Unavailable ANNA VEGA DO Attending Unavailable GARY PIERCE, ANNA Primary Care Unavailable LEE VALADEZ, DR GINA Glass Attending Elaine VEGA DO, ANNA Primary Care Unavailable KEREN GARCIA MD Attending Unavailable GARY PIERCE, ANNA Primary Care Unavailable HALCAREY PIERCE, ANNA Attending Unavailable GARY PIERCE, ANNA Primary Care Unavailable JAY JAY LI MD Attending Unavailable ANNA VEGA DO Primary Care Unavailable ANNA VEGA DO Attending Unavailable GARY PIERCE, ANNA Primary Care Unavailable HALKO , ANNA Attending Unavailable HALKO DO, ANNA Primary Care Unavailable HALKO DO, ANNA Attending Unavailable HALKO DO, ANNA Primary Care Unavailable PETAR ABRAMS Attending Unavailable HALKO DO, ANNA Primary Care Unavailable HALKO DO, ANNA Attending Unavailable HALKO DO, ANNA Primary Care Unavailable HALKO DO, ANNA Primary Care Unavailable HALKO DO, ANNA Attending Unavailable HALKO DO, ANNA Primary Care Unavailable HALKO DO, ANNA Attending Unavailable HALKO DO, ANNA Primary Care Unavailable HALKO DO, ANNA Attending Unavailable HALKO DO, ANNA Primary Care Unavailable FELIZ ALEXANDER CNP Attending Unavailable HALKO DO, ANNA Attending Unavailable HALKO DO, ANNA Primary Care Unavailable HALKO DO, ANNA Attending Unavailable HALKO DO, ANNA Primary Care Unavailable Halko, Anna Referring Unavailable Halko, Anna Primary Care Unavailable Omayra Lyle Attending Unavailable Gary, Anna Primary Care Unavailable Paul Cárdenas Attending Unavailable Gary, Anna Primary Care Unavailable Paul Cárdenas Attending Unavailable Gary, Anna Primary Care Unavailable Paul Cárdenas Attending Unavailable Gary, Anna Primary Care Unavailable Paul Cárdenas Attending Unavailable FriendPrashanth Attending Unavailable Prashanth Rodriguez Consulting Unavailable Anna Vega Primary Care Unavailable Gary, Anna Referring Unavailable FriendPrashanth Attending Unavailable Gary, Anna Primary Care Unavailable Halcarey, Anna Referring Unavailable Medications Current Medications Medication Drug Class(es) [...] 5 Refill(s), 07/05/23 5:15:00 PM EST, Pharmacy: [facility]/pharmacy #[id number], 178, cm, 01/06/23 16:19:00 EDT, Height, [...] qHS, # 30 tab(s), 1 Refill(s), Pharmacy: [facility]/pharmacy #[id number], 182.5, cm, 11/02/24 9:56:00 EDT, Height, [...] qDay, # 90 tab(s), 1 Refill(s), Pharmacy: [facility]/pharmacy #[id number], 182.5, cm, 09/26/24 11:21:00 EDT, Height, [...] day(s), # 240 mL, 5 Refill(s), Pharmacy: [facility]/pharmacy #[id number], 178, cm, 07/18/23 17:05:00 EST, Height, kg, 07/18/23 17:05:00 EST, Dosing Weight Start Date: 07/18/23 Stop Date: 01/14/24 Status: Ordered Start: 05-04-2023 End: 10-31-2023 apply 1 dose topically once as needed CeraVe itch Relief 1% topical lotion Dose = 1 daija, Topical, 5x/Day, PRN as needed for itching, X 30 day(s), # 240 mL, 5 Refill(s), Pharmacy: [facility]/pharmacy #[id number], 178, cm, 05/04/23 16:27:00 EST, Height, [...] qDay, # 90 tab(s), 1 Refill(s), Pharmacy: [facility]/pharmacy #[id number], 178, cm, 04/13/21 16:23:00 EST, Height, kg, 04/13/21 16:23:00 EST, Dosing Weight Start Date: 04/13/21 Stop Date: 10/10/21 Status: Ordered gabapentin 300 mg oral capsule (8 sources) Anti-epileptic Agent Start: 09-26-2024 End: 12-25-2024 gabapentin 300 mg oral capsule Dose : 300 mg = 1 cap(s), Oral, TID, # 90 cap(s), 2 Refill(s), Pharmacy: [facility]/pharmacy #[id number], Ulnar neuropathy, 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, cm, 09/26/24 11:21:00 [...] 11/16/2023, # 180 cap(s), 2 Refill(s), Pharmacy: [facility]/pharmacy #4605, Cervical radiculopathy, 178, cm, 11/16/23 10:41:00 [...] 5 Refill(s), 03/05/25 11:03:00 AM EDT, Pharmacy: [facility]/pharmacy #4605, 182.5, cm, 09/06/24 10:23:00 EDT, Height, [...] 0 Refill(s), 02/15/24 3:52:00 PM EDT, Pharmacy: [facility]/pharmacy #4605, 70.1, cm, 12/29/23 13:25:00 EDT, Height, [...] 2 Refill(s), 08/02/23 4:44:00 PM EST, [facility], 178, cm, 05/04/23 16:27:00 EST, Height, kg, 05/04/23 16:27:00 EST, Dosing Weight Start Date: 05/04/23 Stop Date: 08/02/23 Status: Ordered meloxicam 15 mg oral tablet (6 sources) Nonsteroidal Anti-inflammatory Drug Start: 01-04-2024 End: 03-05-2025 meloxicam 15 mg oral tablet Dose : 15 mg = 1 tab(s), Oral, qDay, # 90 tab(s), 1 Refill(s), Pharmacy: [facility]/pharmacy #[id number], 182.5, cm, 09/06/24 10:23:00 EDT, Height, kg, 09/06/24 10:23:00 EDT, Dosing Weight Start Date: 09/06/24 Stop Date: 03/05/25 Status: Ordered Quantity: 90.0 Unit: tab(s) Repeat number: 2 Start: 12-14-2023 meloxicam 15 m g oral tablet Dose : 15 mg = 1 tab(s), Oral, qDay, # 30 tab(s), 0 Refill(s), Pharmacy: [facility]/pharmacy #[id number], 178, cm, 11/16/23 10:41:00 EDT, Height, [...] 1 Refill(s), 02/13/24 1:06:00 PM EDT, Pharmacy: [facility]/pharmacy #[id number], 178, cm, 08/17/23 11:42:00 EDT, Height, [...] BIDAC, # 60 tab(s), 1 Refill(s), Pharmacy: [facility]/pharmacy #[id number], 182.5, cm, 10/04/24 15:30:00 EDT, Height, kg, 10/04/24 15:30:00 EDT, Dosing Weight Start Date: 10/08/24 Status: Ordered Quantity: 60.0 Unit: tab(s) Repeat number: 2 polyethylene glycol 3350 [id number] mg powder for oral solution (11 sources) Osmotic Laxative Start: 09-23-2023 take 17 doses by mouth once daily as needed MiraLax oral powder for reconstitution Dose : 17 gram(s) =, Oral, qDay, PRN for hard stool, # 510 gram(s), 1 Refill(s), Pharmacy: [facility]/pharmacy #[id number], 178, cm, 09/23/23 10:21:00 EDT, Height, kg, 09/23/23 10:21:00 EDT, Dosing Weight Start Date: 09/23/23 Status: Ordered Start: 07-18-2023 take 17 doses by jonah th once daily as needed MiraLax oral powder for reconstitution Dose : 17 gram(s) =, Oral, qDay, PRN for hard stool, # 510 gram(s), 1 Refill(s), Pharmacy: [facility]/pharmacy #[id number], 178, naomi, 07/18/23 17:05:00 EST, Height, kg, 07/18/23 17:05:00 EST, Dosing Weight Start Date: 07/18/23 Status: Ordered Start: 05-04-2023 take 17 doses by jonah th once daily as needed MiraLax oral powder for reconstitution Dose : 17 gram(s) =, Oral, qDay, PRN for hard stool, # 510 gram(s), 1 Refill(s), Pharmacy: [facility]/pharmacy #[id number], 178, cm, 05/04/23 16:27:00 EST, Height, kg, 05/04/23 16:27:00 EST, Dosing Weight Start Date: 05/04/23 Status: Ordered Start: 01-06-2023 take 17 doses by jonah th twice daily MiraLax oral powder for reconstitution Dose : 17 gram(s) =, Oral, BID, # 510 gram(s), 1 Refill(s), Pharmacy: [facility]/pharmacy #4605, 178, cm, 01/06/23 16:19:00 EDT, Height, kg, 01/06/23 16:19:00 EDT, Dosing Weight Start Date: 01/06/23 Status: Ordered sennosides, skilled nursing 8.6 mg oral tablet (2 sources) Start: 09-06-2024 senna (sennosi theodore) 8.6 mg oral tablet Dose : 17.2 mg = 2 tab(s), Oral, qHS, PRN as needed for constipation while on opioid, # 60 tab(s), 2 Refill(s), Pharmacy: [facility]/pharmacy #4605, 182.5, cm, 09/06/24 10:23:00 EDT, Height, [...] dose, # 180 cap(s), 1 Refill(s), Pharmacy: [facility]/pharmacy #4605, 182.5, cm, 09/06/24 10:23:00 EDT, Height, kg, 09/06/24 10:23:00 EDT, Dosing Weight Start Date: 09/06/24 Stop Date: 03/05/25 Status: Ordered Quantity: 180.0 Unit: cap(s) Repeat number: 2 Start: 04-04-2023 End: 12-19-2023 tamsulosin 0.4 mg oral capsu le Dose : 0.8 mg = 2 cap(s), Oral, qDay, new dose, # 180 cap(s), 1 Refill(s), Pharmacy: [facility]/pharmacy #4605, 178, cm, 05/04/23 16:27:00 EST, Height, [...] qDay, # 90 cap(s), 1 Refill(s), Pharmacy: [facility]/pharmacy #4605, 178, cm, 10/07/22 16:16:00 EDT, Height, kg, 10/07/22 16:16:00 EDT, Dosing Weight Start Date: 10/07/22 Status: Ordered Start: 04-13-2021 End: 10-10-2021 venlafaxine 75 mg oral capsu le, extended release Dose : 75 mg = 1 cap(s), Oral, qDay, # 90 cap(s), 1 Refill(s), Pharmacy: [facility]/pharmacy #4605, 178, cm, 04/13/21 16:23:00 EST, Height, [...] food, # 5 tab(s), 0 Refill(s), Pharmacy: [facility]/pharmacy #4605, 178, cm, 07/01/23 13:51:00 EST, Height, [...] sources) Constipation 08-06-2019 Episodic Other gastrointestinal disorders (2 sources) Dysphagia, unspecified; Translations: [Dysphagia, unspecified] Onset: 10-23-2024 Episodic Other gastrointestinal disorders (2 sources) Heartburn; Translations: [Heartburn] Onset: 10-23-2024 Episodic Other [...] Test Name Value Interpretation Reference Range Facility MR/PAT.LEILAon 11-29-2024 MR/PAT.ANE [facility] Medical Records Department [address] [place] [address] PAT - Anesthesia 11/29/24 1432 MR#: [id number] Acct: [id number] Name: CYNDEE HAWKINS Rep #: [id number] : 1960 64 From: Andrey Morales MD PCP: Dr. Anna Vega, DO Status:PRE SDC Y Race: C Location: EN Pre-Assessment Diagnosis/Proposed Procedure Planned Operative Procedure(s): EGD Anesthesia History Anesthesia History - therapist respiratory: Anesthesia History - therapist respiratory Hx Hospitalization No 11/29/24 10:25 Any Problems With Anesthesia Yes: IRRITABILITY AND 11/29/24 10:25 AGITATION Cholinesterase deficiency No 11/29/24 10:25 You/Your Family Experience No 11/29/24 10:25 fever (hyperthermia) with Relationship Recent Exposure to Contagious No 09/26/23 06:00 Disease Does patient have nerve No 11/29/24 10:25 stimulator Patient instructed to have device shut off --Does patient have Pacemaker or ICD? When Was Last Pacemaker Check QUESTION #4 FULL TEXT: You/Your Family Experience fever (hyperthermia) with Anesthesia Last Oral Intake Last Oral intake: Last Oral Intake NPO since Meds taken in AM with sips of water? Meds patient instructed to take am of surgery PONV PONV - therapist respiratory: PONV - therapist respiratory Female No 11/29/24 10:25 HX of Motion Sickness No 11/29/24 10:25 HX of N/V After Surgery No 11/29/24 10:25 Non-Smoker Yes 11/29/24 10:25 Duration of Surgery greater No 11/29/24 10:25 than 60 minutes Number of Risk Factors 1 11/29/24 10:25 PONV Score Low Risk 11/29/24 10:25 Height Weight Height Weight: Anesthesia: Height Weight Height 5 ft 11 in 10/23/24 10:08 Respiratory Assessment Respiratory Assessment - therapist respiratory: Respiratory Tract Infection Hx - therapist respiratory Hx Respiratory Tract Infection No 11/29/24 10:25 STOP Sleep Apnea STOP Sleep Apnea - therapist respiratory: STOP Sleep Apnea - therapist respiratory Hx Hypertension No 11/29/24 10:25 Hx Sleep Apnea No 11/29/24 10:25 CPAP No 11/29/24 10:25 BIPAP No 11/29/24 10:25 Do you snore loudly (louder No 11/29/24 10:25 than talking or can be heard Do you often feel tired/ No 11/29/24 10:25 fatigued/ sleepy during daytime? Has anyone observed you stop No 11/29/24 10:25 breathing during sleep? STOP Results Negative 11/29/24 10:25 QUESTION #5 FULL TEXT : Do you snore loudly (louder than talking or can be heard through closed doors)? 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 Specify any problems Hx of Preganancy in last 3 N/A 11/29/24 10:25 Months Nurse Filling Out Transfusion NBUCHER 11/29/24 10:25 Questions: Date: 11/29/24 11/29/24 10:25 Time: 10:11/29/24 10:25 Patient unable to answer at this time (ie. confused, unrespo /Reproduction History /Reproductive History - therapist respiratory: /Reproductive Hx- therapist respiratory Hx Now No 11/29/24 10:25 Gestational Age (in weeks): EDC: Hx Hx Para Hx Section SAB No 11/29/24 10:25 [facility] Medical History (Updated 11/29/24 @ 10:34 by Tiara Carrillo) Autism Cancer History of Mohs micrographic surgery for skin cancer (11/26/24) Chronic constipation Wears hearing aid Wears glasses Autistic behavior Anxiety Prostate disease Back pain OCD (obsessive compulsive disorder) Non-smoker History of stress test Intellectual disability Obsessive compulsive disorder Hearing problem History of emotional problems Bone fracture Arthritis Home Medications ???Medication ???Instructions ???Recorded ???Last Taken ???Type acetaminophen 500 mg tablet 1,000 mg (2 x 500 mg) PO Q8 #0 tab s 09/29/23 Unknown Rx Held on 11/29/24. Instructions: DIFFICULTLY SWALLOWING bupropion HCl 300 mg 24 hr tablet, 300 mg PO QAM 10/23/24 Unknown H istory extended release gabapentin 300 mg capsule 300 mg PO TID 10/23/24 Unknown His tory Held on 11/29/24. Instructions: DIFFICULTLY S (more content not included)... Normal [facility] XR ESOPHOGRAM W/BARIUM TABLE Ton 11-22-2024 XR [...] obtained. FINDINGS: Esophagus is diffusely dilated on director cloud transformation image. Barium tablet does not pass through [...] 11/22/2024 9:42:24 AM Ordering Provider: ANNA VEGA [facility] XR SWALLOWING FUNCTIONon XR SWALLOWING FUNCTION ORIGINAL Images acquired, not reported on this accession number. [facility] MAIN Gastroenterology Visit Repor ton 10-23-2024 Gastroenterology Visit Report [facility] Gastroenterology [address] [place] [address] OFFICE VISIT Date of Service: 10/23/24 MR#: [id number] Acct: [id number] Name: CYNDEE HAWKINS Rep #: [id number] : 1960 Provider: DARLENE singh Age/Sex: 64/M Location: [facility] Status: Signed Intake Vital Signs 07/31/24 11:11 10/23/24 10:08 Height 5 ft 11 in 5 ft 11 in Weight: 213 lb 2 oz BMI 29.7 BP 151/94 H Respiration 16 Pulse 90 Pulse Oximetry (%) 92 Oxygen Delivery Method room air Intake Visit Reasons: Dysphagia Chief Complaint: trouble swallowing Sales Development Manager Required: No Accompanied by: Sister Is patient [...] thinks the stress of that caused this. [facility] Medical History Chronic constipation Wears hearing aid [...] Jeet/Lymp He (more content not included)... Normal [facility] MR/BMS.BPon 07-31-2024 MR/BMS.BP [facility] ry [address], [address] [place] [address] OFFICE VISIT Date of Service: 07/31/24 MR#: [id number] Acct: [id number] Name: CYNDEE HAWKINS Rep #: [id number] : 1960 Provider: Dr. Paul Pedroza se, DO Age/Sex: 64/M Location: [facility] Status: Signed Intake Vital Signs 05/02/24 11:21 07/31/24 11:11 Height 5 ft 11 in 5 ft 11 in BP 116/74 Blood Pressure Location Rt brachial Position Sitting Respiration 16 Pulse 63 Pulse Source Monitor BP Intake Visit Reasons: 3 M FU Allergies No Known Allergies Allergy (Verified 05/02/24 11:25) PFSH Medical History Chronic constipation Wears hearing [...] stable. Looking into additional programming such as MOCA house. Denies SI/HI or AVH. Takes medication regularly, [...] thoughts and (more content not included)... Normal [facility] .Auto Diffon 05-10-2024 Basophil, Absolute 0.0 10 3/mcL Normal 0.0-0.2 [facility] Comment on above: Performed By: #### A CASSANDRA, A1C, CBC, ADIFF, CMP, LIPID, PSA, GFR #### [address] [address] Basophils/100 WBC (Bld) 0.6 % Normal 0.0-2.5 [facility] Comment on above: Performed By: #### A CASSANDRA, A1C, CBC, ADIFF, CMP, LIPID, PSA, GFR #### [address] [address] Eosinophil, Absolute 0.1 10 3/mcL Normal 0.0-0.7 [facility] Comment on above: Performed By: #### A CASSANDRA, A1C, CBC, ADIFF, CMP, LIPID, PSA, GFR #### [address] [address] Eosinophils/100 WBC (Bld) 2.1 % Normal 0.0-7.0 [facility] Comment on above: Performed By: #### A CASSANDRA, A1C, CBC, ADIFF, CMP, LIPID, PSA, GFR #### [address] [address] Lymphocyte, Absolute 0.9 10 3/mcL Normal 0.9-4.3 [facility] Comment on above: Performed By: #### A CASSANDRA, A1C, CBC, ADIFF, CMP, LIPID, PSA, GFR #### [address] [address] Lymphocytes/100 WBC (Bld) 17.9 % Low 20.0-40.0 [facility] Comment on above: Performed By: #### A CASSANDRA, A1C, CBC, ADIFF, CMP, LIPID, PSA, GFR #### [address] [address] Monocyte, Absolute 0.5 10 3/mcL Normal 0.1-1.4 [facility] Comment on above: Performed By: #### A CASSANDRA, A1C, CBC, ADIFF, CMP, LIPID, PSA, GFR #### [address] [place], [place] [address] Monocytes/100 WBC (Bld) 10.7 % Normal 2.0-13.0 [facility] Comment on above: Performed By: #### A CASSANDRA, A1C, CBC, ADIFF, CMP, LIPID, PSA, GFR #### [address] [place], [place] [address] Neutrophils/100 WBC (Bld) 68.7 % Normal 50.0-75.0 [facility] Comment on above: Performed By: #### A CASSANDRA, A1C, CBC, ADIFF, CMP, LIPID, PSA, GFR #### [address] [address] .GFRon 05-10-2024 GFR 113 ml/min/1.73sqm [facility] Comment on above: Result Comment: GFR Population [...] CMP, LIPID, PSA, GFR #### [address] [place], [place] [address] GFR Non- 93 ml/min/1.73sqm Normal [facility] Comment on above: Result Comment: GFR [...] CBC, ADIFF, CMP, LIPID, PSA, GFR #### [address] [address] .NEUABSon 05-10-2024 Neutrophil, Absolute 3.3 10 3/mcL Normal 2.3-8.1 [facility] Comment on above: Performed By: #### A CASSANDRA, A1C, CBC, ADIFF, CMP, LIPID, PSA, GFR #### [address] [address] A1Con 05-10-2024 Glucose [Mass/Vol] 105 mg/dL Normal [facility] Comment on above: Result Comment: Suzanne mated Average Glucose calculated by equation ((28.7xA1C)-46.7) Estimated average glucose (eAG) is a calculated value from Hemoglobin A1C and is sales representative jewelry of the average blood glucose level in the last 2-3 month period. Normal range: less than 114 mg/dL Performed By: #### A CASSANDRA, A1C, CBC, ADIFF, CMP, LIPID, PSA, GFR #### [address] [address] HbA1c (Bld) [Mass fraction] 5.3 % Normal 4.3-6.4 [facility] Comment on above: Performed By: #### A CASSANDRA, A1C, CBC, ADIFF, CMP, LIPID, PSA, GFR #### [address] [address] CBCon 05-10-2024 Erythrocyte distribution width (RBC) [Ratio] 12.9 % Normal 11.5-15.5 [facility] Comment on above: Performed By: #### A CASSANDRA, A1C, CBC, ADIFF, CMP, LIPID, PSA, GFR #### [address] [address] Hematocrit (Bld) [Volume fraction] 45.0 % Normal 40.0-52.0 [facility] Comment on above: Performed By: #### A CASSANDRA, A1C, CBC, ADIFF, CMP, LIPID, PSA, GFR #### [address] [address] Hgb 15.3 G/dL Normal 13.0-17.5 [facility] Comment on above: Performed By: #### A CASSANDRA, A1C, CBC, ADIFF, CMP, LIPID, PSA, GFR #### [address] [address] MCH (RBC) [Entitic mass] 32.5 pg Normal 27.0-33.0 [facility] Comment on above: Performed By: #### A CASSANDRA, A1C, CBC, ADIFF, CMP, LIPID, PSA, GFR #### [address] [address] MCHC 34.1 G/dL Normal 32.0-36.0 [facility] Comment on above: Performed By: #### A CASSANDRA, A1C, CBC, ADIFF, CMP, LIPID, PSA, GFR #### [address] [address] MCV (RBC) [Entitic vol] 95.5 fL Normal 81.0-100.0 [facility] Comment on above: Performed By: #### A CASSANDRA, A1C, CBC, ADIFF, CMP, LIPID, PSA, GFR #### [address] [address] Platelet 187 10 3/mcL Normal 150-450 [facility] Comment on above: Performed By: #### A CASSANDRA, A1C, CBC, ADIFF, CMP, LIPID, PSA, GFR #### [address] [address] Platelet mean volume (Bld) [Entitic vol] 7.1 fL Normal 6.4-10.5 [facility] Comment on above: Performed By: #### A CASSANDRA, A1C, CBC, ADIFF, CMP, LIPID, PSA, GFR #### [address] [address] RBC 4.72 10 6/mcL Normal 4.50-6.00 [facility] Comment on above: Performed By: #### A CASSANDRA, A1C, CBC, ADIFF, CMP, LIPID, PSA, GFR #### [address] [address] WBC 4.8 10 3/mcL Normal 4.5-10.8 [facility] Comment on above: Performed By: #### A CASSANDRA, A1C, CBC, ADIFF, CMP, LIPID, PSA, GFR #### [address] [address] CMPon 05-10-2024 Albumin Level 4.2 G/dL Normal 3.4-4.8 [facility] Comment on above: Performed By: #### A CASSANDRA, A1C, CBC, ADIFF, CMP, LIPID, PSA, GFR #### [address] [address] Albumin/Globulin [Mass ratio] 1.4 {ratio} Normal 1.1-2.5 [facility] Comment on above: Performed By: #### A CASSANDRA, A1C, CBC, ADIFF, CMP, LIPID, PSA, GFR #### [address] [address] ALP [Catalytic activity/Vol] 90 U/L Normal 40-135 [facility] Comment on above: Performed By: #### A CASSANDRA, A1C, CBC, ADIFF, CMP, LIPID, PSA, GFR #### [address] [address] ALT [Catalytic activity/Vol] 37 U/L Normal 16-63 [facility] Comment on above: Performed By: #### A CASSANDRA, A1C, CBC, ADIFF, CMP, LIPID, PSA, GFR #### [address] [address] AST [Catalytic activity/Vol] 24 U/L Normal 10-40 [facility] Comment on above: Performed By: #### A CASSANDRA, A1C, CBC, ADIFF, CMP, LIPID, PSA, GFR #### [address] [address] Bili Total 0.5 mg/dL Normal 0.2-1.0 [facility] Comment on above: Result Comment: Use of this assay is not recommended for patients undergoing treatment with eltrombopag due to the potential for falsely elevated results. Performed By: #### A CASSANDRA, A1C, CBC, ADIFF, CMP, LIPID, PSA, GFR #### [address] [address] BUN/Creatinine Ratio 17 ratio Normal 7-27 [facility] Comment on above: Performed By: #### A CASSANDRA, A1C, CBC, ADIFF, CMP, LIPID, PSA, GFR #### [address] [address] Calcium [Mass/Vol] 9.4 mg/dL Normal 8.4-10.2 [facility] Comment on above: Performed By: #### A CASSANDRA, A1C, CBC, ADIFF, CMP, LIPID, PSA, GFR #### [address] [address] Chloride [Moles/Vol] 104 mmol/L Normal 98-107 [facility] Comment on above: Performed By: #### A CASSANDRA, A1C, CBC, ADIFF, CMP, LIPID, PSA, GFR #### [address] [address] CO2 [Moles/Vol] 22 mmol/L Low 23-31 [facility] Comment on above: Performed By: #### A CASSANDRA, A1C, CBC, ADIFF, CMP, LIPID, PSA, GFR #### [address] [address] Creatinine [Mass/Vol] 0.83 mg/dL Normal 0.70-1.30 [facility] Comment on above: Result Comment: Test ing performed on Siemens Dimension EXL analyzer using a modified kinetic Saida technique. Performed By: #### A CASSANDRA, A1C, CBC, ADIFF, CMP, LIPID, PSA, GFR #### [address] [address] Electrolyte Balance 17.0 mEq/L High 4.0-15.0 [facility] Comment on above: Performed By: #### A CASSANDRA, A1C, CBC, ADIFF, CMP, LIPID, PSA, GFR #### [address] [address] Globulin 2.9 G/dL Normal [facility] Comment on above: Performed By: #### A CASSANDRA, A1C, CBC, ADIFF, CMP, LIPID, PSA, GFR #### [address] [address] Glucose [Mass/Vol] 101 mg/dL Normal 80-115 [facility] Comment on above: Performed By: #### A CASSANDRA, A1C, CBC, ADIFF, CMP, LIPID, PSA, GFR #### [address] [address] Potassium [Moles/Vol] 4.7 mmol/L Normal 3.5-5.1 [facility] Comment on above: Performed By: #### A CASSANDRA, A1C, CBC, ADIFF, CMP, LIPID, PSA, GFR #### [place] [address] Sodium [Moles/Vol] 143 mmol/L Normal 136-145 [facility] Comment on above: Performed By: #### A CASSANDRA, A1C, CBC, ADIFF, CMP, LIPID, PSA, GFR #### [address] [address] Total Protein 7.1 G/dL Normal 6.4-8.2 [facility] Comment on above: Performed By: #### A CASSANDRA, A1C, CBC, ADIFF, CMP, LIPID, PSA, GFR #### [address] [address] Urea nitrogen [Mass/Vol] 14 mg/dL Normal 7-18 [facility] Comment on above: Performed By: #### A CASSANDRA, A1C, CBC, ADIFF, CMP, LIPID, PSA, GFR #### [address] [address] LABORATORYOrdered By: SYSTEM SYSTEM on 05-10-2024 Albumin [...] calculated value from Hemoglobin A1C and is sales representative jewelry of the average blood glucose level in [...] 05-10-2024 Cholesterol [Mass/Vol] 210 mg/dL High 0-200 [facility] Comment on above: Result Comment: Chol esterol Reference Interval: Less than 200 Desirable 200-239 Borderline high risk 240 and above High risk Performed By: #### A CASSANDRA, A1C, CBC, ADIFF, CMP, LIPID, PSA, GFR #### [address] [address] Cholesterol in HDL [Mass/Vol] 46 mg/dL Normal 40-60 [facility] Comment on above: Performed By: #### A CASSANDRA, A1C, CBC, ADIFF, CMP, LIPID, PSA, GFR #### [address] [place], [place] [address] Cholesterol in LDL [Mass/Vol] 138 mg/dL High 0-130 [facility] Comment on above: Performed By: #### A CASSANDRA, A1C, CBC, ADIFF, CMP, LIPID, PSA, GFR #### [address] [address] Triglyceride [Mass/Vol] 132 mg/dL Normal 0-150 [facility] Comment on above: Result Comment: Trig lyceride Reference Interval: Less than 150 Normal 150-199 Borderline high risk 200-499 High risk 500 or higher Very high risk Performed By: #### A CASSANDRA, A1C, CBC, ADIFF, CMP, LIPID, PSA, GFR #### [address] [address] PSAon 05-10-2024 Prostate Specific Antigen 0.34 ng/mL Normal 0.00-4.00 [facility] Comment on above: Performed By: #### A CASSANDRA, A1C, CBC, ADIFF, CMP, LIPID, PSA, GFR #### [address] [address] MR/BMS.BPon 05-02-2024 MR/BMS.BP [address], [place] [address] OFFICE VISIT Date of Service: 05/02/24 MR#: [id number] Acct: [id number] Name: CYNDEE HAWKINS Rep #: [id number] : 1960 Provider: Dr. Paul Pedroza se, DO Age/Sex: 64/M Location[place] [facility] [place]: Signed Intake Vital Signs 01/26/24 11:48 [...] the gun quickly. Has not gone to [place] but he feels like he has been busy going to appointments. Sister alludes to the fact that mother was not keen on the idea of patient going and therefore has largely maintained similar routine. Goes 3x per week at [place] [facility] which does involve some mild socialization. [...] Insight questionable (more content not included)... Normal [facility] XR HAND MINIMUM 3 VIEWS [facility] 02-15-2024 XR HAND MINIMUM 3 VIEWS RIGHT [...] 02/15/2024 9:50:15 AM Ordering Provider: FELIZ ALEXANDER [facility] MR/BMS.BPon 01-26-2024 MR/BMS.BP [facility] [address] [facility] [place] [facility], [address] [place] [address] OFFICE VISIT Date of Service: 01/26/24 MR#: [id number] Acct: [id number] Name: CYNDEE HAWKINS Rep #: [id number] : 1960 Provider: Dr. 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 [facility] Medical History Chronic constipation Wears hearing aid [...] other (stif (more content not included)... Normal [facility] .Auto Diffon 08-18-2023 Basophil, Absolute 0.0 10 3/mcL Normal 0.0-0.2 [facility] [place] Comment on above: Performed By: #### A CASSANDRA, CBC, GFR, A1C, CMP, ADIFF #### [address] [address] Basophils/100 WBC (Bld) 1.0 % Normal 0.0-2.5 [facility] ([place] Comment on above: Performed By: #### A CASSANDRA, CBC, GFR, A1C, CMP, ADIFF #### [address] [address] Eosinophil, Absolute 0.2 10 3/mcL Normal 0.0-0.4 [facility] ([place] Comment on above: Performed By: #### A CASSANDRA, CBC, GFR, A1C, CMP, ADIFF #### [address] [address] Eosinophils/100 WBC (Bld) 4.1 % Normal 0.0-7.0 [facility] ([place] Comment on above: Performed By: #### A CASSANDRA, CBC, GFR, A1C, CMP, ADIFF #### [address] [address] Lymphocyte, Absolute 0.9 10 3/mcL Normal 0.8-3.9 [facility] ([place] Comment on above: Performed By: #### A CASSANDRA, CBC, GFR, A1C, CMP, ADIFF #### [address] [address] Lymphocytes/100 WBC (Bld) 22.2 % Normal 10.0-50.0 [facility] ([place] Comment on above: Performed By: #### A CASSANDRA, CBC, GFR, A1C, CMP, ADIFF #### [address] [address] Monocyte, Absolute 0.5 10 3/mcL Normal 0.2-1.0 [facility] ([place] Comment on above: Performed By: #### A CASSANDRA, CBC, GFR, A1C, CMP, ADIFF #### [address] [address] Monocytes/100 WBC (Bld) 11.8 % Normal 1.7-13.0 [facility] ([place] Comment on above: Performed By: #### A CASSANDRA, CBC, GFR, A1C, CMP, ADIFF #### [address] [address] Neutrophils/100 WBC (Bld) 60.9 % Normal 37.0-80.0 [facility] ([place] Comment on above: Performed By: #### A CASSANDRA, CBC, GFR, A1C, CMP, ADIFF #### [address] [address] .GFRon 08-18-2023 GFR Non- 95 ml/min/1.73sqm Normal [facility] ([place] Comment on above: Result Comment: GFR Population [...] CASSANDRA, CBC, GFR, A1C, CMP, ADIFF #### [address] [address] GFR 115 ml/min/1.73sqm Normal [facility] ([place] Comment on above: Result Comment: GFR Population [...] CASSANDRA, CBC, GFR, A1C, CMP, ADIFF #### [address] [address] .NEUABSon 08-18-2023 Neutrophil, Absolute 2.4 10 3/mcL Low 2.9-6.2 [facility] ([place] Comment on above: Performed By: #### A CASSANDRA, CBC, GFR, A1C, CMP, ADIFF #### [address] [address] A1Con 08-18-2023 HbA1c (Bld) [Mass fraction] 5.3 % Normal 4.3-6.4 [facility] ([place] Comment on above: Performed By: #### A CASSANDRA, CBC, GFR, A1C, CMP, ADIFF #### [address] [address] CBCon 08-18-2023 Erythrocyte distribution width (RBC) [Ratio] 14.3 % Normal 11.5-14.5 [facility] ([place] Comment on above: Order Comment: nedra hinton to Dr. Jay Jay Li F: [phone] Performed By: #### A CASSANDRA, CBC, GFR, A1C, CMP, ADIFF #### [place] [address] Hematocrit (Bld) [Volume fraction] 42.9 % Normal 42.0-52.0 [facility] ([place] Comment on above: Order Comment: nedra hinton to Dr. Jay Jay Li F: [phone] Performed By: #### A CASSANDRA, CBC, GFR, A1C, CMP, ADIFF #### [place] [address] Hgb 15.1 G/dL Normal 14.0-18.0 [facility] ([place] Comment on above: Order Comment: nedra Li F: [phone] Performed By: #### A CASSANDRA, CBC, GFR, A1C, CMP, ADIFF #### [address] [address] MCH (RBC) [Entitic mass] 32.1 pg High 27.0-31.2 [facility] ([place] Comment on above: Order Comment: nedra Li F: [phone] Performed By: #### A CASSANDRA, CBC, GFR, A1C, CMP, ADIFF #### [place] [id number] MCHC 35.3 G/dL Normal 31.8-35.4 [facility] ([place] Comment on above: Order Comment: nedra Li F: [phone] Performed By: #### A CASSANDRA, CBC, GFR, A1C, CMP, ADIFF #### [place] [id number] MCV (RBC) [Entitic vol] 90.9 fL Normal 80.0-94.0 [facility] ([place] Comment on above: Order Comment: nedra hinton to Dr. Jay Jay Li F: [phone] Performed By: #### A CASSANDRA, CBC, GFR, A1C, CMP, ADIFF #### [place] [address] [address] Platelet 181 10 3/mcL Normal 130-400 [facility] ([place] Comment on above: Order Comment: nedra hinton to Dr. Jay Jay Li F: [phone] Performed By: #### A CASSANDRA, CBC, GFR, A1C, CMP, ADIFF #### [place] [address] [address] Platelet mean volume (Bld) [Entitic vol] 6.7 fL Low 7.4-10.4 [facility] ([place] Comment on above: Order Comment: nedra hinton to Dr. Jay Jay Li F: [phone] Performed By: #### A CASSANDRA, CBC, GFR, A1C, CMP, ADIFF #### [address] [address] RBC 4.71 10 6/mcL Normal 4.04-6.13 [facility] ([place] Comment on above: Order Comment: nedra Li F: [phone] Performed By: #### A CASSANDRA, CBC, GFR, A1C, CMP, ADIFF #### [place] [address] [address] WBC 4.0 10 3/mcL Low 4.6-10.8 [facility] ([place] Comment on above: Order Comment: nedra Li F: [phone] Performed By: #### A CASSANDRA, CBC, GFR, A1C, CMP, ADIFF #### [address] [address] CMPon 08-18-2023 Albumin Level 3.9 G/dL Normal 3.4-4.8 [facility] ([place] Comment on above: Order Comment: nedra tierney Dr. Jay Jay Li F: [phone] Performed By: #### A CASSANDRA, CBC, GFR, A1C, CMP, ADIFF #### [address] [address] Albumin/Globulin [Mass ratio] 1.3 {ratio} Normal 1.1-2.5 [facility] ([place] Comment on above: Order Comment: nedra hinton to Dr. Jay Jay Li F: [phone] Performed By: #### A CASSANDRA, CBC, GFR, A1C, CMP, ADIFF #### [address] [address] ALP [Catalytic activity/Vol] 105 U/L Normal 40-135 [facility] ([place] Comment on above: Order Comment: nedra hinton to Dr. Jay Jay Li F: [phone] Performed By: #### A CASSANDRA, CBC, GFR, A1C, CMP, ADIFF #### [address] [address] ALT [Catalytic activity/Vol] 29 U/L Normal 16-63 [facility] ([place] Comment on above: Order Comment: nedra hinton to Dr. Jay Jay Li F: [phone] Performed By: #### A CASSANDRA, CBC, GFR, A1C, CMP, ADIFF #### [address] [address] AST [Catalytic activity/Vol] 23 U/L Normal 10-40 [facility] ([place] Comment on above: Order Comment: nedra hinton to Dr. Jay Jay Li F: [phone] Performed By: #### A CASSANDRA, CBC, GFR, A1C, CMP, ADIFF #### [address] [address] Bili Total 0.4 mg/dL Normal 0.2-1.0 [facility] ([place] Comment on above: Order Comment: nedra hinton to Dr. Jay Jay Li F: [phone] Result Comment: Use of this assay is not recommended for patients undergoing treatment with eltrombopag due to the potential for falsely elevated results. Performed By: #### A CASSANDRA, CBC, GFR, A1C, CMP, ADIFF #### [address] [address] BUN/Creatinine Ratio 23 ratio Normal 7-27 [facility] ([place] Comment on above: Order Comment: nedra hinton to Dr. Jay Jay Li F: [phone] Performed By: #### A CASSANDRA, CBC, GFR, A1C, CMP, ADIFF #### [address] [address] Calcium [Mass/Vol] 8.8 mg/dL Normal 8.4-10.2 [facility] ([place]) Comment on above: Order Comment: nedra hinton to Dr. Jay Jay Li F: [phone] Performed By: #### A CASSANDRA, CBC, GFR, A1C, CMP, ADIFF #### [address] [address] Chloride [Moles/Vol] 105 mmol/L Normal 98-107 [facility] ([place] Comment on above: Order Comment: nedra hinton to Dr. Jay Jay Li F: [phone] Performed By: #### A CASSANDRA, CBC, GFR, A1C, CMP, ADIFF #### [address] [address] CO2 [Moles/Vol] 27 mmol/L Normal 23-31 [facility] ([place] Comment on above: Order Comment: nedra hinton to Dr. Jay Jay Li F: [phone] Performed By: #### A CASSANDRA, CBC, GFR, A1C, CMP, ADIFF #### [address] [address] Creatinine [Mass/Vol] 0.82 mg/dL Normal 0.70-1.30 [facility] ([place] Comment on above: Order Comment: nedra hinton to Dr. Jay Jay Li F: [phone] Performed By: #### A CASSANDRA, CBC, GFR, A1C, CMP, ADIFF #### [address] [address] Electrolyte Balance 7.0 mEq/L Normal 4.0-15.0 [facility] ([place]) Comment on above: Order Comment: nedra hinton to Dr. Jay Jay Li F: [phone] Performed By: #### A CASSANDRA, CBC, GFR, A1C, CMP, ADIFF #### [address] [address] Globulin 3.0 G/dL Normal [facility] ([place] Comment on above: Order Comment: nedra hinton to Dr. Jay Jay Li F: Performed By: #### A CASSANDRA, CBC, GFR, A1C, CMP, ADIFF #### [address] [address] Glucose [Mass/Vol] 108 mg/dL Normal 80-115 [facility] ([place] Comment on above: Order Comment: nedra hinton to Dr. Jay Jay Li F: Performed By: #### A CASSANDRA, CBC, GFR, A1C, CMP, ADIFF #### [address] [address] Potassium [Moles/Vol] 4.4 mmol/L Normal 3.5-5.1 [facility] ([place] Comment on above: Order Comment: nedra hinton to Dr. Jay Jay Li F: [phone] Performed By: #### A CASSANDRA, CBC, GFR, A1C, CMP, ADIFF #### [address] [address] Sodium [Moles/Vol] 139 mmol/L Normal 136-145 [facility] ([place] Comment on above: Order Comment: nedra hinton to Dr. Jay Jay Li F: [phone] Performed By: #### A CASSANDRA, CBC, GFR, A1C, CMP, ADIFF #### [address] [address] Total Protein 6.9 G/dL Normal 6.4-8.2 [facility] ([place] Comment on above: Order Comment: nedra hinton to Dr. Jay Jay Li F: [phone] Performed By: #### A CASSANDRA, CBC, GFR, A1C, CMP, ADIFF #### [address] [place], [place] [address] Urea nitrogen [Mass/Vol] 19 mg/dL High 7-18 [facility] ([place] Comment on above: Order Comment: nedra hinton to Dr. Jay Jay Li F: [phone] Performed By: #### A CASSANDRA, CBC, GFR, A1C, CMP, ADIFF #### [facility] [address] [place], [place] [address] LABORATORYOrdered By: SYSTEM SYSTEM on 08-18-2023 Albumin [...] Workflow SS XR HAND MINIMUM 3 VIEWS CRISTINA Ton 07-08-2023 XR HAND MINIMUM 3 VIEWS RIGHT [...] 07/08/2023 7:57:46 AM Ordering Provider: ANNA VEGA [facility] ([place] SPINE CERVICAL W/O JOHN Dillon 06-28-2023 CT SPINE CERVICAL W/O CONTRAST ORIGINAL [...] 06/28/2023 7:25:48 PM Ordering Provider: GINA HOWARD [facility] ([place]) BMP with eGFRon 03-01-2023 AGE 62 years Normal [facility] Comment on above: Performed By: #### 2 55894 #### [facility],[address] [place] [address] Anion gap [Moles/Vol] 12 mmol/L Normal 10 - 20 [facility] Comment on above: Performed By: #### 2 23874 #### [facility],[address] [place], [place] [address] BMP with eGFR Normal [facility] Comment on above: Result Comment: BASI C METABOLIC PANEL Performed By: #### 2 [address]9531 #### [facility],[address] [place] [address] Calcium [Mass/Vol] 8.8 mg/dL Normal 8.5 - 10.1 [facility] Comment on above: Performed By: #### 2 79386 #### [facility],[address] [place] [address] Chloride [Moles/Vol] 105 mmol/L Normal 98 - 107 [facility] Comment on above: Performed By: #### 2 44626 #### [facility],[address] [place] [address] CO2 [Moles/Vol] 24.9 mmol/L Normal 21.0 - 32.0 [facility] Comment on above: Performed By: #### 2 43803 #### [facility],[address] [place], [place] [address] Creatinine [Mass/Vol] 0.85 mg/dL Normal 0.70 - 1.30 [facility] Comment on above: Performed By: #### 2 14675 #### [facility],[address] [place] [address] GFR/1.73 sq M.predicted among non-blacks MDRD (S/P/Bld) [Vol rate/Area] mL/min/{1.73_m2} Normal 60 - 999 [facility] Comment on above: Performed By: #### 2 37319 #### [facility],[address] [place] [address] Result Comment: ACCO RDING TO THE NATIONAL KIDNEY DISEASE EDUCATION PROGRAM(NKDE), A NORMAL eGFR IS A VALUE GREATER THAN OR EQUAL TO 60 ML/MIN/1.73 SQ METERS. CHRONIC KIDNEY DISEASE: <60mL/MIN/1.73 SQ METERS KIDNEY FAILURE: <15mL/MIN/1.73 SQ METERS THIS TEST SHOULD ONLY BE USED FOR PATIENTS 18 YEARS OF AGE AND OLDER. Glucose [Mass/Vol] 125 mg/dL High 74 - 106 [facility] Comment on above: Performed By: #### 2 34109 #### [facility],[address] [place], [place] [address] Potassium [Moles/Vol] 3.9 mmol/L Normal 3.5 - 5.1 [facility] Comment on above: Performed By: #### 2 24872 #### [facility],[address] [place] [address] Sodium [Moles/Vol] 138 mmol/L Normal 136 - 145 [facility] Comment on above: Performed By: #### 2 24199 #### [facility],[address] [place] [address] Urea nitrogen [Mass/Vol] 10 mg/dL Normal 7 - 18 [facility] Comment on above: Performed By: #### 2 65693 #### [facility],[address] [place] [address] CBC + DIFFon 03-01-2023 Baso # 0.00 x10EE3/UL Normal 0.00 - 0.10 [facility] Comment on above: Performed By: #### 2 35496 #### [facility],[address] [place] [address] Basophils/100 WBC (Bld) 0.0 % Normal 0.0 - 2.0 [facility] Comment on above: Performed By: #### 2 51869 #### [facility],[address] [place] [address] CBC + DIFF Normal [facility] Comment on above: Result Comment: CBC- COMPLETE BLOOD COUNT Performed By: #### 2 57840 #### [facility],[address] [place] [address] EO # 0.00 x10EE3/UL Normal 0.00 - 0.50 [facility] Comment on above: Performed By: #### 2 30697 #### [facility],[address] [place] [address] Eosinophils/100 WBC (Bld) 0.0 % Normal 0.0 - 7.0 [facility] Comment on above: Performed By: #### 2 92746 #### [facility],[address] [place], [place] [address] Erythrocyte distribution width (RBC) [Ratio] 13.1 % Normal 12.0 - 15.6 [facility] Comment on above: Performed By: #### 2 46850 #### [facility],[address] [place], [place] [address] Hematocrit (Bld) [Volume fraction] 41.5 % Normal 40.0 - 52.0 [facility] Comment on above: Performed By: #### 2 70504 #### [facility],[address] [place] [address] Hemoglobin (Bld) [Mass/Vol] 14.0 g/dL Normal 13.0 - 17.5 [facility] Comment on above: Performed By: #### 2 93851 #### [facility],[address] [place] [address] Lymph # 0.30 x10EE3/UL Low 0.80 - 2.80 [facility] Comment on above: Performed By: #### 2 63761 #### [facility],[address] [place] [address] Lymphocytes/100 WBC (Bld) 2.9 % Low 20.0 - 45.0 [facility] Comment on above: Performed By: #### 2 95488 #### [facility],[address] [place] [address] MANUAL DIFF N/A Normal [facility] Comment on above: Performed By: #### 2 49106 #### [facility],[address] [place], [place] [address] MCH (RBC) [Entitic mass] 32 pg Normal 27 - 33 [facility] Comment on above: Performed By: #### 2 78464 #### [facility],[address] [place] [address] MCHC 34 X10 3 Normal 32 - 36 [facility] Comment on above: Performed By: #### 2 38500 #### [facility],[address] [place] [address] MCV (RBC) [Entitic vol] 96 fL Normal 81 - 98 [facility] Comment on above: Performed By: #### 2 71505 #### [facility],[address] [place] [address] Bremer # 0.70 x10EE3/UL Normal 0.20 - 1.00 [facility] Comment on above: Performed By: #### 2 86897 #### [facility],[address] [place] [address] MONOS % 6.3 % Normal 0.0 - 10.0 [facility] Comment on above: Performed By: #### 2 38196 #### [facility],[address] [place] [address] Morphology Colten (Bld) [Interp] N/A Normal [facility] Comment on above: Result Comment: {CD] Performed By: #### 2 98265 #### [facility],[address] [place] [address] Neut # 9.70 x10EE3/UL High 1.50 - 7.10 [facility] Comment on above: Performed By: #### 2 26287 #### [address] [address] Neutrophils/100 WBC (Bld) 90.8 % High 46.0 - 76.0 [facility] Comment on above: Performed By: #### 2 20880 #### [address] [address] PLATELET 225 x10EE3/UL Normal 150 - 450 [facility] Comment on above: Performed By: #### 2 65333 #### [facility],[address] [place] [address] Platelet mean volume (Bld) [Entitic vol] 7.1 fL Normal 6.4 - 10.5 [facility] Comment on above: Result Comment: AUTO MATED DIFFERENTIAL Performed By: #### 2 39630 #### [facility],[address] [place] [address] RBC 4.34 x 10EE6/UL Low 4.50 - 6.00 [facility] Comment on above: Performed By: #### 2 54937 #### [facility],[address] [place] [address] WBC 10.7 x 10EE3/UL Normal 4.5 - 10.8 [facility] Comment on above: Performed By: #### 2 [address] #### [address] [address] KNEE 2 VIEWS LTon 02-28-2023 KNEE 2 VIEWS LT [place] [address] [place], [place] [address] Patient: SREEDHAR HAWKINS Phone#: : [phone] Age: 62 Gender: M Pt. Type: Out Account: [id number] Location: [id number] Ordering: JAY JAY LI Exam Date: 02/28/2023/17:41 Family Phys: JAIME ROACH Charge Code: 881858 Physician: [place] Order #: [id number] Dose#: PROCEDURE: X-RAY KNEE LT 2 VIEWS [...] Coon MD on 02/28/2023 at 18:18 Normal [facility] NM MYOCARDIAL SPECT STRESS/R ESTon 02-25-2023 [...] Date: 02/25/2023 10:28:14 AM Ordering Provider:Anna Carias [facility] ([place]) .Auto Diffon 02-16-2023 Basophil, Absolute 0.0 10 3/mcL Normal 0.0-0.2 [facility] ([place]) Comment on above: Performed By: #### C MP, A1C, GFR, ANEU, ADIFF, CBC #### [address] [address] Basophils/100 WBC (Bld) 0.6 % Normal 0.0-2.5 [facility] ([place]) Comment on above: Performed By: #### C MP, A1C, GFR, ANEU, ADIFF, CBC #### [address] [address] Eosinophil, Absolute 0.1 10 3/mcL Normal 0.0-0.4 [facility] ([place]) Comment on above: Performed By: #### C MP, A1C, GFR, ANEU, ADIFF, CBC #### [address] [address] Eosinophils/100 WBC (Bld) 1.6 % Normal 0.0-7.0 [facility] ([place] Comment on above: Performed By: #### C MP, A1C, GFR, ANEU, ADIFF, CBC #### [address] [address] Lymphocyte, Absolute 1.1 10 3/mcL Normal 0.8-3.9 [facility] ([place] Comment on above: Performed By: #### C MP, A1C, GFR, ANEU, ADIFF, CBC #### [address] [address] Lymphocytes/100 WBC (Bld) 19.1 % Normal 10.0-50.0 [facility] ([place] Comment on above: Performed By: #### C MP, A1C, GFR, ANEU, ADIFF, CBC #### [address] [address] Monocyte, Absolute 0.5 10 3/mcL Normal 0.2-1.0 [facility] ([place]) Comment on above: Performed By: #### C MP, A1C, GFR, ANEU, ADIFF, CBC #### [address] [address] Monocytes/100 WBC (Bld) 8.9 % Normal 1.7-13.0 [facility] ([place] Comment on above: Performed By: #### C MP, A1C, GFR, ANEU, ADIFF, CBC #### [address] [address] Neutrophils/100 WBC (Bld) 69.8 % Normal 37.0-80.0 [facility] ([place] Comment on above: Performed By: #### C MP, A1C, GFR, ANEU, ADIFF, CBC #### [address] [address] .GFRon 02-16-2023 GFR 117 ml/min/1.73sqm Normal [facility] ([place] Comment on above: Result Comment: GFR Population [...] CASSANDRA, CBC, GFR, A1C, CMP, ADIFF #### [address] [address] GFR Non- 97 ml/min/1.73sqm Normal [facility] ([place] Comment on above: Result Comment: GFR Population [...] CASSANDRA, CBC, GFR, A1C, CMP, ADIFF #### [address] [address] .NEUABSon 02-16-2023 Neutrophil, Absolute 4.0 10 3/mcL Normal 2.9-6.2 [facility] ([place] Comment on above: Performed By: #### C MP, A1C, GFR, ANEU, ADIFF, CBC #### [address] [address] A1Con 02-16-2023 HbA1c (Bld) [Mass fraction] 5.4 % Normal 4.3-6.4 [facility] ([place] Comment on above: Order Comment: nedra hinton to Dr. Jay Jay Li F: [phone] Performed By: #### A CASSANDRA, CBC, GFR, A1C, CMP, ADIFF #### [address] [address] CBCon 02-16-2023 Erythrocyte distribution width (RBC) [Ratio] 13.3 % Normal 11.5-14.5 [facility] ([place]) Comment on above: Order Comment: nedra hinton to Dr. Jay Jay Li Performed By: #### C MP, A1C, GFR, ANEU, ADIFF, CBC #### [address] [address] Hematocrit (Bld) [Volume fraction] 42.8 % Normal 42.0-52.0 [facility] ([place]) Comment on above: Order Comment: nedra hinton to Dr. Jay Jay Li Performed By: #### C MP, A1C, GFR, ANEU, ADIFF, CBC #### [address] [address] Hgb 14.8 G/dL Normal 14.0-18.0 [facility] ([place]) Comment on above: Order Comment: cc re sults to Dr. Jay Jay Li Performed By: #### C MP, A1C, GFR, ANEU, ADIFF, CBC #### [place] [address] MCH (RBC) [Entitic mass] 32.7 pg High 27.0-31.2 [facility] ([place]) Comment on above: Order Comment: cc re sults to Dr. Jay Jay Li Performed By: #### C MP, A1C, GFR, ANEU, ADIFF, CBC #### [place] [address] MCHC 34.5 G/dL Normal 31.8-35.4 [facility] [facility] [place] Comment on above: Order Comment: cc re sults to Dr. Jay Jay Li Performed By: #### C MP, A1C, GFR, ANEU, ADIFF, CBC #### [place] [address] MCV (RBC) [Entitic vol] 94.8 fL High 80.0-94.0 [facility] ([place]) Comment on above: Order Comment: cc re sults to Dr. Jay Jay Li Performed By: #### C MP, A1C, GFR, ANEU, ADIFF, CBC #### [place] [id number] Platelet 210 10 3/mcL Normal 130-400 [facility] ([place]) Comment on above: Order Comment: cc re sults to Dr. Jay Jay Li Performed By: #### C MP, A1C, GFR, ANEU, ADIFF, CBC #### [place] [id number] Platelet mean volume (Bld) [Entitic vol] 7.4 fL Normal 7.4-10.4 [facility] ([place] Comment on above: Order Comment: cc re sults to Dr. Jay Jay Li Performed By: #### C MP, A1C, GFR, ANEU, ADIFF, CBC #### [address] [address] RBC 4.51 10 6/mcL Normal 4.04-6.13 [facility] ([place]) Comment on above: Order Comment: nedra hinton to Dr. Jay Jay Li Performed By: #### C MP, A1C, GFR, ANEU, ADIFF, CBC #### [address] [address] WBC 5.7 10 3/mcL Normal 4.6-10.8 [facility] ([place]) Comment on above: Order Comment: nedra hinton to Dr. Jay Jay Li Performed By: #### C MP, A1C, GFR, ANEU, ADIFF, CBC #### [address] [address] CMPon 02-16-2023 Albumin Level 4.4 G/dL Normal 3.4-4.8 [facility] ([place]) Comment on above: Order Comment: nedra hinton to Dr. Jay Jay Li F: [phone] Performed By: #### A CASSANDRA, CBC, GFR, A1C, CMP, ADIFF #### [address] [address] Albumin/Globulin [Mass ratio] 1.3 {ratio} Normal 1.1-2.5 [facility] ([place]) Comment on above: Order Comment: nedra Li F: [phone] Performed By: #### A CASSANDRA, CBC, GFR, A1C, CMP, ADIFF #### [address] [address] ALP [Catalytic activity/Vol] 90 U/L Normal 40-135 [facility] ([place]) Comment on above: Order Comment: nedra Li F: [phone] Performed By: #### A CASSANDRA, CBC, GFR, A1C, CMP, ADIFF #### [address] [address] ALT [Catalytic activity/Vol] 26 U/L Normal 16-63 [facility] ([place]) Comment on above: Order Comment: nedra hinton to Dr. Jay Jay Li F: [phone] Performed By: #### A CASSANDRA, CBC, GFR, A1C, CMP, ADIFF #### [address] [address] AST [Catalytic activity/Vol] 21 U/L Normal 10-40 [facility] ([place]) Comment on above: Order Comment: nedra hinton to Dr. Jay Jay Li F: [phone] Performed By: #### A CASSANDRA, CBC, GFR, A1C, CMP, ADIFF #### [address] [address] Bili Total 0.6 mg/dL Normal 0.2-1.0 [facility] ([place]) Comment on above: Order Comment: nedra hniton to Dr. Jay Jay Li F: [phone] Result Comment: Use of this assay is not recommended for patients undergoing treatment with eltrombopag due to the potential for falsely elevated results. Performed By: #### A CASSANDRA, CBC, GFR, A1C, CMP, ADIFF #### [address] [address] BUN/Creatinine Ratio 25 ratio Normal 7-27 [facility] ([place]) Comment on above: Order Comment: nedra hinton to Dr. Jay Jay Li F: [phone] Performed By: #### A CASSANDRA, CBC, GFR, A1C, CMP, ADIFF #### [address] [address] Calcium [Mass/Vol] 9.1 mg/dL Normal 8.4-10.2 [facility] ([place]) Comment on above: Order Comment: nedra hinton to Dr. Jay Jay Li F: [phone] Performed By: #### A CASSANDRA, CBC, GFR, A1C, CMP, ADIFF #### [address] [address] Chloride [Moles/Vol] 106 mmol/L Normal 98-107 [facility] ([place]) Comment on above: Order Comment: nedra hinton to Dr. Jay Jay Li F: [phone] Performed By: #### A CASSANDRA, CBC, GFR, A1C, CMP, ADIFF #### [address] [address] CO2 [Moles/Vol] 28 mmol/L Normal 23-31 [facility] ([place]) Comment on above: Order Comment: nedra hinton to Dr. Jay Jay Li F: Performed By: #### A CASSANDRA, CBC, GFR, A1C, CMP, ADIFF #### [address] [address] Creatinine [Mass/Vol] 0.81 mg/dL Normal 0.70-1.30 [facility] ([place]) Comment on above: Order Comment: nedra hinton to Dr. Jay Jay Li F: Performed By: #### A CASSANDRA, CBC, GFR, A1C, CMP, ADIFF #### [address] [address] Electrolyte Balance 10.0 mEq/L Normal 4.0-15.0 [facility] ([place]) Comment on above: Order Comment: nedra hinton to Dr. Jay Jay Li F: [phone] Performed By: #### A CASSANDRA, CBC, GFR, A1C, CMP, ADIFF #### [address] [address] Globulin 3.3 G/dL Normal [facility] ([place]) Comment on above: Order Comment: nedra hinton to Dr. Jay Jay Li F: [phone] Performed By: #### A CASSANDRA, CBC, GFR, A1C, CMP, ADIFF #### [address] [address] Glucose [Mass/Vol] 92 mg/dL Normal 80-115 [facility] ([place]) Comment on above: Order Comment: nedra hinton to Dr. Jay Jay Li F: [phone] Performed By: #### A CASSANDRA, CBC, GFR, A1C, CMP, ADIFF #### [address] [address] Potassium [Moles/Vol] 5.0 mmol/L Normal 3.5-5.1 [facility] ([place] Comment on above: Order Comment: nedra hinton to Dr. Jay Jay Li F: [phone] Performed By: #### A CASSANDRA, CBC, GFR, A1C, CMP, ADIFF #### [address] [address] Sodium [Moles/Vol] 144 mmol/L Normal 136-145 [facility] ([place]) Comment on above: Order Comment: nedra hinton to Dr. Jay Jay Li F: [phone] Performed By: #### A CASSANDRA, CBC, GFR, A1C, CMP, ADIFF #### [address] [address] Total Protein 7.7 G/dL Normal 6.4-8.2 [facility] ([place]) Comment on above: Order Comment: nedra hinton to Dr. Jay Jay Li F: [phone] Performed By: #### A CASSANDRA, CBC, GFR, A1C, CMP, ADIFF #### [address] [address] Urea nitrogen [Mass/Vol] 20 mg/dL High 7-18 [facility] ([place]) Comment on above: Order Comment: nedra hinton to Dr. Jay Jay Li F: [phone] Performed By: #### A CASSANDRA, CBC, GFR, A1C, CMP, ADIFF #### [address] [address] BMP with eGFRon 02-10-2023 AGE 62 years Normal [facility] Comment on above: Performed By: #### 2 [address] #### [facility],[address] [place] [address] Anion gap [Moles/Vol] 12 mmol/L Normal 10 - 20 [facility] Comment on above: Performed By: #### 2 23667 #### [facility],[address] [place] [address] BMP with eGFR Normal [facility] Comment on above: Result Comment: BASI C METABOLIC PANEL Performed By: #### 2 60358 #### [facility],[address] [place] [address] Calcium [Mass/Vol] 9.1 mg/dL Normal 8.5 - 10.1 [facility] Comment on above: Performed By: #### 2 05522 #### [facility],[address] [place], [place] [id number] Chloride [Moles/Vol] 107 mmol/L Normal 98 - 107 [facility] Comment on above: Performed By: #### 2 47560 #### [facility],[address] [place], [place] [id number] CO2 [Moles/Vol] 26.1 mmol/L Normal 21.0 - 32.0 [facility] Comment on above: Performed By: #### 2 50714 #### [facility],[address] [place], [place] [address] Creatinine [Mass/Vol] 0.71 mg/dL Normal 0.70 - 1.30 [facility] Comment on above: Performed By: #### 2 14461 #### [facility],[address] [place], [place] [address] GFR/1.73 sq M.predicted among non-blacks MDRD (S/P/Bld) [Vol rate/Area] mL/min/{1.73_m2} Normal 60 - 999 [facility] Comment on above: Performed By: #### 2 58074 #### [facility],[address] [place] [address] Result Comment: ACCO RDING TO THE NATIONAL KIDNEY DISEASE EDUCATION PROGRAM(NKDE), A NORMAL eGFR IS A VALUE GREATER THAN OR EQUAL TO 60 ML/MIN/1.73 SQ METERS. CHRONIC KIDNEY DISEASE: <60mL/MIN/1.73 SQ METERS KIDNEY FAILURE: <15mL/MIN/1.73 SQ METERS THIS TEST SHOULD ONLY BE USED FOR PATIENTS 18 YEARS OF AGE AND OLDER. Glucose [Mass/Vol] 94 mg/dL Normal 74 - 106 [facility] Comment on above: Performed By: #### 2 73978 #### [facility],[address] [place] [address] Potassium [Moles/Vol] 4.0 mmol/L Normal 3.5 - 5.1 [facility] Comment on above: Performed By: #### 2 50200 #### [facility],[address] [place] [address] Sodium [Moles/Vol] 141 mmol/L Normal 136 - 145 [facility] Comment on above: Performed By: #### 2 15929 #### [facility],[address] [place], [place] [id number] Urea nitrogen [Mass/Vol] 17 mg/dL Normal 7 - 18 [facility] Comment on above: Performed By: #### 2 81198 #### [facility],[address] [place], [place] [id number] CBC + DIFFon 02-10-2023 Baso # 0.00 x10EE3/UL Normal 0.00 - 0.10 [facility] Comment on above: Performed By: #### 2 42063 #### [facility],[address] [place] [address] Basophils/100 WBC (Bld) 0.6 % Normal 0.0 - 2.0 [facility] Comment on above: Performed By: #### 2 48129 #### [facility],[address] [place] [address] CBC + DIFF Normal [facility] Comment on above: Result Comment: CBC- COMPLETE BLOOD COUNT Performed By: #### 2 48094 #### [facility],[address] [place] [address] EO # 0.10 x10EE3/UL Normal 0.00 - 0.50 [facility] Comment on above: Performed By: #### 2 99135 #### [facility],[address] [place] [address] Eosinophils/100 WBC (Bld) 1.6 % Normal 0.0 - 7.0 [facility] Comment on above: Performed By: #### 2 48549 #### [facility],[address] [place] [address] Erythrocyte distribution width (RBC) [Ratio] 13.2 % Normal 12.0 - 15.6 [facility] Comment on above: Performed By: #### 2 56766 #### [facility],[address] [place] [address] Hematocrit (Bld) [Volume fraction] 43.2 % Normal 40.0 - 52.0 [facility] Comment on above: Performed By: #### 2 13781 #### [facility],[address] [place] [address] Hemoglobin (Bld) [Mass/Vol] 14.8 g/dL Normal 13.0 - 17.5 [facility] Comment on above: Performed By: #### 2 13227 #### [facility],[address] [place] [address] Lymph # 0.90 x10EE3/UL Normal 0.80 - 2.80 [facility] Comment on above: Performed By: #### 2 58515 #### [facility],[address] [place] [address] Lymphocytes/100 WBC (Bld) 23.8 % Normal 20.0 - 45.0 [facility] Comment on above: Performed By: #### 2 56162 #### [facility],[address] [place] [address] MANUAL DIFF N/A Normal [facility] Comment on above: Performed By: #### 2 90825 #### [facility],[address] [place] [address] MCH (RBC) [Entitic mass] 33 pg Normal 27 - 33 [facility] Comment on above: Performed By: #### 2 66830 #### [facility],[address] [place] [address] MCHC 34 X10 3 Normal 32 - 36 [facility] Comment on above: Performed By: #### 2 07989 #### [facility],[address] [place] [address] MCV (RBC) [Entitic vol] 96 fL Normal 81 - 98 [facility] Comment on above: Performed By: #### 2 07357 #### [facility],[address] [place] [address] Bremer # 0.40 x10EE3/UL Normal 0.20 - 1.00 [facility] Comment on above: Performed By: #### 2 29511 #### [facility],[address] [place] [address] MONOS % 10.9 % High 0.0 - 10.0 [facility] Comment on above: Performed By: #### 2 79106 #### [facility],[address] [place] [address] Morphology Colten (Bld) [Interp] N/A Normal [facility] Comment on above: Result Comment: {CD] Performed By: #### 2 29036 #### [facility],[address] [place] [address] Neut # 2.30 x10EE3/UL Normal 1.50 - 7.10 [facility] Comment on above: Performed By: #### 2 71193 #### [facility],[address] [place] [address] Neutrophils/100 WBC (Bld) 63.1 % Normal 46.0 - 76.0 [facility] Comment on above: Performed By: #### 2 37006 #### [facility],[address] [place] [address] PLATELET 207 x10EE3/UL Normal 150 - 450 [facility] Comment on above: Performed By: #### 2 76462 #### [facility],[address] [place] [address] Platelet mean volume (Bld) [Entitic vol] 7.1 fL Normal 6.4 - 10.5 [facility] Comment on above: Result Comment: AUTO MATED DIFFERENTIAL Performed By: #### 2 80111 #### [facility],[address] [place] [address] RBC 4.52 x 10EE6/UL Normal 4.50 - 6.00 [facility] Comment on above: Performed By: #### 2 15780 #### [facility],[address] [place] [address] WBC 3.6 x 10EE3/UL Low 4.5 - 10.8 [facility] Comment on above: Performed By: #### 2 83113 #### [facility],[address] [place] [address] CHEST 2 VIEWSon 02-10-2023 CHEST 2 VIEWS [place] [address] Patient: SREEDHAR HAWKINS Phone#: : [phone] Age: 62 Gender: M Pt. Type: Out Account: [id number] Location: [facility] Ordering: JAY JAY LI Exam Date: 02/10/2023/9:02 Family Phys: JAIME ROACH Charge Code: 235455 Physician: [place] Order #: [id number] Dose#: PROCEDURE: X-RAY CHEST 2 VIEWS COMPARISON: [...] Coon MD on 02/10/2023 at 11:52 Normal [facility] LABORATORYOrdered By: SYSTEM SYSTEM on 07-24-2022 [...] ANES Adrienne 01-28-2017 ANES POST HNO ID: [id number]: Jose Ramon CauseyService: AnesthesiologyAuthor Type: AnesthesiologistType: Anesthesia PostOpFiled: 01/28/2017 11:30 AMNote Text:REGIONAL ANESTHESIOLOGY POST ANESTHESIA NOTEPATIENT NAME: Cyndee HawkinsMRN: [id number]: [id number]: 136/85Pulse: 68Resp: 18Temp: 36.5 ?C (97.7 ?F)TempSrc: [...] Causey MDDATE: January 28, 2017TIME: 11:30 AM [facility] PREOPon 01-28-2017 ANE PREOP HNO ID: [id number]: Jose Ramon CauseyService: AnesthesiologyAuthor Type: AnesthesiologistType: Anesthesia PreOpFiled: 01/28/2017 10:00 AMNote Text:REGIONAL ANESTHESIOLOGY DAY OF SURGERY NOTEPATIENT NAME: Cyndee HawkinsMRN: [id number](s) (LRB):EXCISION AND REPAIR OF > 1/4 OF [...] otherwise documented in primary service progress notes: NoThis contains updated information obtained within 48 hours ofSurgery/Procedure.SIGN ATURE: BABAR HumphriesATE: January 28, 2017TIME: 9:48 AM [facility] HISTORY PHYSICALon 7 HISTORY PHYSICAL HNO ID: [id number]: Valdo Carlsone: OphthalmologyAuthor Type: PhysicianType: HANDPFiled: 01/28/2017 10:38 AMNote [...] in the scanned documents dated 01/11/17.SIGNATURE: Valdo Miller MD PATIENT NAME: Cyndee HawkinsDATE: January 28, 2017 : 10:37 AM PAGER: [facility] OPERATIVE NOon 01-28-2017 OPERATIVE NO HNO ID: [id number]: Valdo Torrez: OphthalmologyAuthor Type: PhysicianType: Operative ReportFiled: 01/28/2017 11:07 AMNote Text: OPERATIVE/PROCEDURE REPORT OPHTHAMOLOGYLOG ID: [id number]/Procedure Date: 01/28/2017Incision/Proced ure Start Time: 10:45 AMIncision Close/Procedure End Time: 11:02 AMSurgeon(s)/[address](s) and Operator Specialist Communications(s):Surgeon(s) and Role: * Valdo Miller - PrimaryProcedure(s): Procedure(s) (LRB):EXCISION AND REPAIR OF [...] primary surgeon/proceduralist performed the entire procedure.SIGNATURE: Valdo Miller MD PATIENT NAME: Cyndee HawkinsDATE: January 28, 2017 : 11:06 AM PAGER/CONTACT #: [facility] HOSPon 01-03-2017 Weight Patient:Reynaldo Hawkins RMRN: Height:5' 10.5(1.791 m)Weight:209 lb (94.802 kg)Outpatient Medications as of 01/28/17:FLUoxetine (PROZAC) 20 mg capsulemirtazapine (REMERON) 30 mg tabletAdmission/Clinic Administered Medications as of 01/28/17:lactated ringers infusionProblem List:Special screening for malignant neoplasms, colon [Z12.11]Diarrhea [R19.7]Allergies:No Known AllergiesDate Verified:01/28/17Lab ValuesNo results within the last 30 days for the following basenames: K,HCTNo progress notes entered within the past 30 days [facility] Vital Signs Date Time Vital Sign Value Performing Clinician Ezekiel brown 08-19-2023 17:05-0400 Body temperature 97.52 [degF] KEREN GARCIA MD [facility] 08-19-2023 17:05-0400 Body weight 97.3 kg KEREN GARCIA MD [facility] 08-19-2023 17:05-0400 Diastolic Blood Pressure Non-Invasive 82 mm[Hg] KEREN GARCIA MD [facility] 08-19-2023 17:05-0400 Heart rate 67 /min KEREN GARCIA MD [facility] 08-19-2023 17:05-0400 Respiratory rate 16 /min KEREN GARCIA MD [facility] 08-19-2023 17:05-0400 Systolic Blood Pressure Non-Invasive 151 mm[Hg] KEREN GARCIA MD [facility] 06-28-2023 16:56-0500 Diastolic Blood Pressure Non-Invasive 75 mm[Hg] DR GINA HOWARD MD [facility] 06-28-2023 16:56-0500 Heart rate 60 /min DR GINA HOWARD MD [facility] 06-28-2023 16:56-0500 Reason For Taking VItal Signs DR GINA HOWARD MD [facility] 06-28-2023 16:56-0500 Respiratory rate 18 /min DR GINA HOWARD MD [facility] 06-28-2023 16:56-0500 Systolic Blood Pressure Non-Invasive 135 mm[Hg] DR GINA HOWARD MD [facility] 06-28-2023 15:37-0500 Body temperature 97.16 [degF] DR GINA HOWARD MD [facility] 06-28-2023 15:37-0500 Diastolic Blood Pressure Non-Invasive 77 mm[Hg] DR GINA HOWARD MD [facility] 06-28-2023 15:37-0500 Heart rate 64 /min DR GINA HOWARD MD [facility] 06-28-2023 15:37-0500 Respiratory rate 18 /min DR GINA HOWARD MD [facility] 06-28-2023 15:37-0500 Systolic Blood Pressure Non-Invasive 154 mm[Hg] DR GINA HOWARD MD [facility] Encounters Encounter Date Encounter Type Care Provider Facility Start: 12-05-2024 ambulatory Anna Halko Facility: [facility] Start: 11-30-2024 ambulatory Rpashanth Friend Facility :[facility] Start: 11-30-2024 ambulatory Prashanth Friend Facility :[facility] Start: 11-22-2024 End: 11-22-2024 ambulatory ANNA HALKO DO [facility] Start: 11-22-2024 End: 11-22-2024 Patient encounter procedure ANNA HALKO DO [facility] Start: 11-20-2024 End: 11-20-2024 ambulatory ANNA HALKO DO Facility:[facility] Start: 11-20-2024 End: 11-20-2024 Patient encounter procedure ANNA HALKO DO [facility] Start: 10-23-2024 End: 10-23-2024 ambulatory Anna Halko Facility:[facility] Start: 07-31-2024 End: 07-31-2024 ambulatory Anna Halko Facility:[facility] Start: 07-27-2024 End: 07-27-2024 ambulatory ANNA HALKO DO Facility:[facility] Start: 07-24-2024 End: 08-13-2024 ambulatory ANNA HALKO DO [facility] Start: 05-10-2024 End: 05-10-2024 ambulatory ANNA HALKO DO [facility] Start: 05-10-2024 End: 05-10-2024 Patient encounter procedure ANNA HALKO DO [facility] Start: 05-02-2024 End: 05-02-2024 ambulatory Anna Wiltonko Facility:[facility] Start: 02-14-2024 End: 02-14-2024 ambulatory ANNA HALKO DO Facility:[facility] [place] Start: 02-14-2024 End: 02-14-2024 Patient encounter procedure 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 [facility] Start: 01-26-2024 End: 01-26-2024 ambulatory Anna Wiltonko Facility:[facility] Start: 11-25-2023 End: 12-27-2023 ambulatory ANAN HALKO DO Facility:[facility] Start: 11-25-2023 End: 12-27-2023 Physical therapy management ANNA HALKO DO [facility] Start: 10-04-2023 End: 11-18-2023 Admission to same day surgery center PETAR CROW [facility] Start: 10-04-2023 End: 11-18-2023 ambulatory PETAR CROW Facility:[facility] Start: 08-19-2023 End: 08-19-2023 Emergency department patient visit KEREN GARCIA MD [facility] Start: 08-18-2023 End: 08-18-2023 ambulatory ANNA WILTONKO DO Facility:[facility] Start: 08-18-2023 End: 08-18-2023 Patient encounter procedure ANNA HALKO DO [facility] Start: 07-07-2023 End: 07-07-2023 ambulatory ANNA HALKO DO Facility:[facility] Start: 07-07-2023 End: 07-07-2023 Patient encounter procedure ANNA HALKO DO [facility] Start: 07-05-2023 End: 08-08-2023 ambulatory ANNA VEGA DO Facility:[facility] Start: 07-05-2023 End: 08-08-2023 Physical therapy management ANNA VEGA DO [facility] Start: 06-28-2023 End: 06-28-2023 Emergency department patient visit DR GINA HOWARD MD [facility] Start: 03-03-2023 End: 05-02-2023 Admission to same day surgery center JAY JAY LI MD [facility] Start: 03-03-2023 End: 05-02-2023 ambulatory JAY JAY LI MD Facility:[facility] Start: 02-28-2023 End: 03-01-2023 ambulatory JAY JAY IL [facility] Start: 02-24-2023 End: 02-24-2023 ambulatory ANNA GARY Facility:[facility] Start: 02-24-2023 End: 02-24-2023 Patient encounter procedure ANNA VEGA DO [facility] Start: 02-16-2023 End: 02-20-2023 ambulatory ANNA GARY PIERCE Facility:[facility] Start: 02-16-2023 End: 02-20-2023 Encounter for other preprocedural examination ANNA VEGA DO Facility:[facility] Start: 02-10-2023 End: 02-10-2023 ambulatory JAY JAY LI [facility] Start: 10-08-2022 End: 10-08-2022 Patient encounter procedure ANNA GARY PIERCE [facility] Start: 07-24-2022 End: 07-24-2022 Patient encounter procedure ANNA GARY PIERCE [facility] Start: 05-19-2022 End: 06-15-2022 Physical therapy management ANNA VEGA DO [facility] Start: 05-04-2022 End: 05-04-2022 Patient encounter procedure ANNA VEGA DO [facility] Start: 07-27-2021 End: 07-27-2021 Discharged [facility], [facility] Start: 04-18-2021 End: 04-18-2021 Patient encounter procedure ANNA VEGA DO [facility] Start: 01-28-2017 End: 01-28-2017 Ambulatory [facility] Procedures Date Procedure Procedure Detail Performing Clinician Start: 01-21-2014 Other (qualifier value) ANNA GARY PIERCE Comment on above: septoplasty, Dr. Seferino farley, [facility] Start: 08-03-2013 Ankle region structu re (body structure) ANNA VEGA DO Comment on above[facility]p [facility] medial malleolus Start: 06-06-2007 Prosthetic arthropla sty of the hip ANNA GARY PIERCE Comment on above: Right Knee region structur e (body structure) ANNA GARY PIERCE Comment on above: Arthroscopy - Left k nee - calcium deposits Tube (qualifier value) MARE EL GARY DO Comment on above: in ear: bilateral Immunizations Immunization Date Immunization Notes Care Provider Luz Elena neal 03-02-2024 influenza, injectabl e, quadrivalent, contains preservative; Translations: [Fluarix PF Prefilled Syringe ] ANNA WILTONCAREY [facility] 03-26-2022 COVID-19, mRNA, LNP- S, bivalent booster, PF, 30 mcg/0.3 mL dose; Translations: [Pfizer-BioNTech COVID-19 (12y+) Bivalent Booster Vaccine PF] ANNA VEGA DO [facility] 03-26-2022 SARSCoV2 mRNA(amllbtcyifv26j+)b ival vac; Translations: [Pfizer-BioNTech COVID-19 (12y+) Bivalent Booster Vaccine PF] DR GINA HOWARD MD [facility] 03-06-2022 influenza virus vaccine, unspecified formulation ANNA WILTONCAREY DO [facility] Comment on above: Result Comment: at [facility] 02-05-2022 tetanus toxoid, reduced diphtheria toxoid, and acellular pertussis vaccine, adsorbed; Translations: [Boostrix (Tdap)] ANNA VEGA DO [facility] 04-13-2021 COVID-19, mRNA, LNP- S, PF, 100 mcg/ 0.5 mL dose; Translations: [Moderna COVID-19 Vaccine] ANNA VEGA DO [facility] 03-06-2021 influenza virus vaccine, unspecified formulation ANNA VEGA DO [facility] Comment on above: Result Comment: at [facility] 10-04-2020 SARS-CoV-2 (COVID-19 ) mRNA-1273 vaccine ANNA VEGA DO [facility] Comment on above: Result Comment: [facility] 09-06-2020 SARS-CoV-2 (COVID-19 ) mRNA-1273 vaccine ANNA VEGA DO [facility] Comment on above: Result Comment: [facility] 04-12-2020 pneumococcal conjuga te vaccine, 13 valent ANNA VEGA DO [facility] Comment on above: Result Comment: [facility] 04-12-2020 zoster vaccine recombinant ANNA VEGA DO [facility] Comment on above: Result Comment: [facility] 02-08-2020 zoster vaccine recombinant ANNA VEGA DO [facility] 04-06-2015 influenza virus vaccine, unspecified formulation ANNA VEGA DO [facility] 02-04-2014 influenza virus vaccine, unspecified formulation ANNA VEGA DO [facility] 01-21-2014 Influenza virus vaccine [facility] Work Phone: 06-06-2013 influenza virus vaccine, unspecified formulation ANNA [facility]GA DO [facility] [facility] tetanus toxoid, reduced diphtheria toxoid, and acellular pertussis vaccine, adsorbed ANNA VEGA DO [facility] Payers Date Payer Category Payer Self-pay [id number] 2023 Unknown [id number] 2022 Private Health Insurance [id number] 1960 Unknown [id number] 2.16.840.1.152548.3.579.2.627 1960 Unknown [id number] 2.16.840.1.818598.3.579.2.627 1960 Unknown [id number] 2.16.840.1.420532.3.579.2.627 1960 Unknown [id number] 2.16.840.1.416560.3.579.2.627 1960 Unknown [id number] 2.16.840.1.962749.3.579.2.627 1960 Unknown [id number] 2.16.840.1.778327.3.579.2.627 1960 Unknown [id number] 2.16.840.1.476923.3.579.2.7 1960 Unknown [id number] 2.16.840.1.620726.3.579.2.7 1960 Unknown [id number] 2.16.840.1.423417.3.579.2.627 1960 Unknown [id number] 2.16.840.1.637114.3.579.2.7 1960 Unknown [id number] 2.16.840.1.793981.3.579.2.627 1960 Unknown [id number] 2.16.840.1.380151.3.579.2.627 1960 Unknown [id number] 2.16.840.1.970844.3.579.2.7 1960 Unknown [id number] 2.16.840.1.435464.3.579.2.627 1960 Unknown [id number] 2.16.840.1.951229.3.579.2.7 1960 Unknown [id number] 2.16.840.1.332198.3.579.2.627 1960 Unknown [id number] 2.16.840.1.516750.3.579.2.651 1960 Unknown [id number] 2.16.840.1.474359.3.579.2.651 Unknown SELF PAY INSURANCE [id number] Unknown [id number] 2.16.840.1.632150.3.579.2.462 Unknown [id number] 2.16.840.1.031788.3.579.2.462 Unknown [id number] 2.16.840.1.561571.3.579.2.462 Unknown [id number] 2.16.840.1.306696.3.579.2.462 Unknown [id number] 2.16.840.1.484297.3.579.2.462 Unknown [id number] 2.16.840.1.635667.3.579.2.462 Unknown [id number] 2.16.840.1.995833.3.579.2.462 Social History Date Type Detail Facility Start: 02-13-2019 End: 10-04-2024 Never smoked tobacco (finding) [facility] Sex Assigned At [facility] Start: 01-23-2014 [facility] Work Phone: Start: 01-21-2014 None [facility] Work Phone: Start: 01-21-2014 With Family [facility] Work Phone: Start: 01-21-2014 Non-smoker [facility] Work Phone: Start: 1960 Sex Assigned At Male [facility] Work Phone: Start: 07-15-2005 Sex Male (finding) [facility] Functional Status Date Assessment Result Facility 11-25-2023 [...] UE symptoms with neck ROM all planes 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 R, 90Lbs L Thoracic mobility: marked stiffness with accessory mobility assessment with report of positive response to assessment [facility] 10-04-2023 Functional Status Home Living [...] calf tenderness compliant with alisha hose AROM: 30 PROM: [facility] 08-19-2023 Functional Status ID band on, Call device within reach, Bed in low position, Wheels locked, Visitor at bedside [facility] 06-28-2023 Functional Status ID band on, Call device within reach, Bed in low position, Wheels locked, Upper/Half-Length side-rails up, Bedside Cart Locked, Visitor at bedside, Safety level maintained [facility] 06-28-2023 Functional Status [facility] 03-03-2023 Functional Status Home Living Ad ditional [...] compliant with alisha hose AROM: 32-83 PROM: [facility] 05-19-2022 Functional Status Home Living [...] line tendernes son the L is noted. [facility] Mental Status Date Assessment Result Facility 08-19-2023 Mental Status Oriented x 4 [facility] 06-28-2023 Mental Status Orientation Foll ows simple commands, Other: pt has developmental delay [facility] Clinical Notes 04-25-2023 to 11-30-2024 Note Date & Type Note Facility 11-30-2024 Note [facility] Medical Records Department [address] [place] [address] History Physical Exam 11/30/24 0651 MR#: [id number] Acct: [id number] Name: CYNDEE HAWKINS Rep #: [id number] : 1960 64 From: Prashanth Rodriguez DO PCP: Dr. Anna Vega, DO Status:[facility] Location: [place] [address] HPI - General General Date of Admission: 11/30/24 Date of Service: 11/30/24 Chief Complaint: dysphagia HPI Narrative CYNDEE HAWKINS, is a 64 M who presents Chief Complaint: trouble swallowing - seen in office today with his [...] GB - prescribed by chiropractor x1 week [facility] Medical History Autism Cancer History of Mohs micrographic surgery for skin cancer (11/26/24) Chronic constipation Wears hearing aid Wears glasses Autistic behavior Anxiety Prostate disease Back pain OCD (obsessive compulsive disorder) Non-smoker History of stress test Intellectual disability Obsessive compulsive disorder Hearing problem History of emotional problems Bone fracture Arthritis Home Medications ???Medication ???Instructions ???Recorded ???Last Taken ???Type acetaminophen 500 mg tablet 1,000 mg (2 x 500 mg) PO Q8 #0 tab s 09/29/23 Unknown Rx Held on 11/29/24. Instructions: DIFFICULTLY SWALLOWING bupropion HCl 300 mg 24 hr tablet, 300 mg PO QAM 10/23/24 Unknown H istory extended release gabapentin 300 mg capsule 300 mg PO TID 10/23/24 Unknown His tory Held on 11/29/24. Instructions: DIFFICULTLY SWALLOWING meloxicam 15 mg tablet 15 mg PO QDAY 10/23/24 Unknown His tory Held on 11/29/24. Instructions: DIFFICULTLY SWALLOWING pantoprazole 40 mg tablet,delayed 40 mg PO .before meals 10/23/24 U nknown History release Held on 11/29/24. Instructions: DIFFICULTLY SWALLOWING amitriptyline 25 mg tablet 25 mg PO QHS 11/29/24 Unknown Hist ory doxycycline monohydrate 100 mg 100 mg PO BID 11/29/24 Unknown His tory tablet sertraline 100 mg tablet 200 mg PO DAILY 11/29/24 Unknown H istory Allergy/AdvReac Type Severity Reaction Status Date / Time No Known Allergies Allergy Verified 11/30/24 05:49 Family History Other Arthritis Bowel disease Colon cancer Diabetes Heart disease High cholesterol Hypertension Osteoporosis Surgical History History of ankle surgery History of tonsillectomy History of colonoscopy History of left knee replacement History of total left hip replacement History of total right hip replacement History of nasal surgery Social History Smoking Status: Never smoker alcohol intake: never substance use type: does not use what type of physical activity do you participate in: walking ROS Constitutional Constitutional: Denies fatigue, fever(s), poor appetite, weight gain or weight loss Gastrointestinal Gastrointestinal: Denies belching, bloating, change in bowel habits, change in stool character, chewing difficulty, coffee ground emesis, constipation, cramping, diarrhea, dyspepsia, dysphagia, early satiety, excessive flatus, fecal incontinence, heartburn, hematemesis, hematochezia, hemorrhoids, loose stools, melena, nausea, odynophagia, rectal bleeding, tenesmus, vomiting or weight changes Vital Signs Vital Signs Vital Signs: 11/30/24 05:50 11/30/24 05:50 11/30/24 06:19 Temperature 97.8 F 97.8 F Temperature Source Temporal Pulse Rate 96 96 Respiratory Rate 18 18 Respiratory Pattern Normal Blood Pressure 147/96 H 147/96 H Blood Pressure Mean 113 Blood Pressure Source Monitor Blood Pressure Position Sitting Blood Pressure Location Left Arm Pulse Ox 100 100 Oxygen Delivery Method Room Air Room Air Weight Weight: 207 lb 3.752 oz Body Mass Index (BMI) 28.9 Physical Exam Const alert, oriented x3, no apparent distress and healthy appearing General Appearance: cooperative GI normal to inspection, nondistended, n (more content not included)... [facility] 11-22-2024 Note Exam Date Time Procedure Performing Provider Status 11/22/24 8:54 AM XR Esophogram w/Barium Tablet ANNA DORANTES MD; Auth (Verified) [id number] ORIGINAL EXAMINATION: Double CONTRAST ESOPHAGRAM 11/22/2024 HISTORY: [...] obtained. FINDINGS: Esophagus is diffusely dilated on director cloud transformation image. Barium tablet does not pass through [...] 11/22/2024 9:42:24 AM Ordering Provider: ANNA VEGA [facility]06-17-2025 Note* Exam Date Time Procedure Performing Provider Status 11/20/24 12:52 PM XR Swallowing Function M odified [id number] ORIGINAL Images acquired, not reported on this accession number. [id number] Discharge instructions Patient Education 08/19/2023 17:28:38 [...] alternate ice and heat. You may use hztc-tcg-hccvkxo pain medicine to control pain, unless another [...] numb, or tingly Pain or swelling increases [phone] [employer]. [address] [place] [address]. All rights reserved. This information is not intended as a substitute for professional medical care. Always follow yourhealthcare professional's instructions. Follow Up Care 08/19/2023 16:54:28 With:ANNA VEGA DO Address: [address] [place] [phone] When:2-4 days [facility] 03-15-2024 Note Discharge Instructions Thank you for allowing [facility] to assist you with your healthcare needs. [...] ANNA VEGA DO When Within 2-4 days Where: [address] [place] [phone] Allergies NKA Medications Please ask your primary [...] alternate ice and heat. You may use ianx-pzr-yesqrnq pain medicine to control pain, unless another [...] numb, or tingly Pain or swelling increases [phone] [employer]. [address] [place] [address]. All rights reserved. This information is not intended as a substitute for professional medical care. Always follow yourhealthcare professional's instructions. Additional Information VACCINATE! IT SAVES LIVES! Members of the community who have not yet received the COVID-19 vaccine and would like to receive it can visit one of [facility] vaccine clinics. There are many vaccine clinic locations within the [facility]. For locations and available times, please visit www.[email or web address].[place].gov/. It is important to note that some COVID mobile vaccine clinics are held outdoors and may be canceled in rainy or stormy conditions. To learn more about pediatric vaccinations (ages 5-11), we invite you to visit the [facility] webpage. https://www.[facility].org/pages/2924-Uflkz-Eppcasvcyzj-Fyiusvnssi-Cepnu-Equ stions.htmlTo learn more about the COVID-19 vaccine, we invite you to visit the CDC website for a list of frequently asked questions. https://www.cdc.gov/coronavirus/2019-ncov/vaccines/faq.html [facility] Patient Portal Access Instructions: Stay connected with your healthcare team and access your personal medical information anytime with the [facility] Patient Portal. If you would like a full copy of your medical records please contact the [facility] Medical Records Department Tuesday through Tuesday between 8a.m. and 4:30p.m. Please follow the directions below to access the portal: 1.Access the email account you provided upon registration to the [facility].2.Look for an invitation email from [facility].3.Open the email and access the invitation link: Accept Invitation to [facility]4.Fill in the required lugo to create your account. Sign into [email or web address] with your username and password that you [...] you will allow to register on the [facility] Patient Portal for access to your information. You can also access the [facility] Patient Portal on the Finomial. Simply click on Health Records under Spotsetter and then click on the [facility] logo. HOW TO SAFELY DISPOSE OF PRESCRIPTION [...] Call your local pharmacy or go to http://Cyanogen.[employer]/8Y0Et4f to find one close to you.3.Make use of household items: Use cat litter or old coffee grounds to dispose medications if other options arenot available. Mix your drugs with these household products, seal them in an airtight container andthrow it into the garbage. Call [facility]: [phone] to be sure your drugs can be [...] aware that I should contact my doctor. Patient/Director Card Signature: Date/Time: Relationship to Patient: Witness Name/Signature: Date/Time: [facility]02-02-2024 Evaluation + Plan note Future Scheduled Tests Radiology* MRI Spine Cervical w/o Contrast 07/08/23 [facility] 01-23-2024 Hospital Discharge instructions Patient [...] arm gets worse Trouble breathing or swallowing [phone] [employer]. [address] [place] [address]. All rights reserved. This information is not intended as a substitute for professional medical care. Always follow yourhealthcare professional's instructions. Follow Up Care 06/28/2023 15:35:14 With:ANNA VEGA DO Address: [address] [place] [phone] When:2-4 days Comments:Return to ED if symptoms worsen With:Keep your appointment as scheduled with orthopedic spine. Address:Unknown When:2-4 days [facility] 01-23-2024 Emergency department Discharge summary Discharge Instructions Thank you for allowing [facility] to assist you with your healthcare needs. [...] Return to ED if symptoms worsen Where: [address] [place] [phone] Follow Up with Keep your appointment as [...] arm gets worse Trouble breathing or swallowing [phone] [employer]. [address] [place] [address]. All rights reserved. This information is not intended as a substitute for professional medical care. Always follow yourhealthcare professional's instructions. Additional Information VACCINATE! IT SAVES LIVES! Members of the community who have not yet received the COVID-19 vaccine and would like to receive it can visit one of [facility] vaccine clinics. There are many vaccine clinic locations within the [facility]. For locations and available times, please visit www.[email or web address].[place].gov/. It is important to note that some COVID mobile vaccine clinics are held outdoors and may be canceled in rainy or stormy conditions. To learn more about pediatric vaccinations (ages 5-11), we invite you to visit the [facility] webpage. https://www.[facility].org/pages/8719-Yuitq-Mbmlelybgmh-Tsznvumagx-Aaqlp-Oac stions.htmlTo learn more about the COVID-19 vaccine, we invite you to visit the CDC website for a list of frequently asked questions. https://www.cdc.gov/coronavirus/2019-ncov/vaccines/faq.html [facility] Patient Portal Access Instructions: Stay connected with your healthcare team and access your personal medical information anytime with the [facility] Patient Portal. If you would like a full copy of your medical records please contact the [facility] Medical Records Department Tuesday through Tuesday between 8a.m. and 4:30p.m. Please follow the directions below to access the portal: 1.Access the email account you provided upon registration to the [facility].2.Look for an invitation email from [facility].3.Open the email and access the invitation link: Accept [facility]itation to [facility]4.Fill in the required lugo to create your account. Sign into [email or web address] with your username and password that you [...] you will allow to register on the [facility] Patient Portal for access to your information. You can also access the [facility] Patient Portal on the [employer] daija. Simply click on Health Records under [employer] and then click on the [employer] logo. HOW TO SAFELY DISPOSE OF PRESCRIPTION [...] Call your local pharmacy or go to http://bit.[employer]/6Y8Ep3o to find one close to you.3.Make use of household items: Use cat litter or old coffee grounds to dispose medications if other options arenot available. Mix your drugs with these household products, seal them in an airtight container andthrow it into the garbage. Call [facility]: [phone] to be sure your drugs can be [...] aware that I should contact my doctor. Patient/Director Card Signature: Date/Time: Relationship to Patient: Witness Name/Signature: [facility] Note ORIGINAL EXAMINATION: CT OF [...] Sign Date: 06/28/2023 7:25:48 PM [facility]ing Provider[facility] NAME ACCOUNT SEX AGE ADMIT DISCHARGE PT MED. RECORD# NUMBER DATE DATE TYPE SREEDHAR HAWKINS [id number] M 62 02/28/23 2 R [id number] ROOM: [facility] DATE OF : 1960 ATTENDING PHYSICIAN: Petar [...] be doing well Page 1 of 2 SREEDHAR HAWKINS Discharge Summary SREEDHAR HAWKINS : 1960 overall. [...] is interested in being discharged to a senior living facility. I explained that our goal is for him to succeed in physical therapy and be discharged home. He understands that if he does well in physical therapy that his insurance company likely will not cover a stay with a senior living facility. He understands the risks associated with being discharged to a senior living facility. He will further review these options [...] Petar Kumar PA-C 03/01/23 07:39 JOB #: [id number] Transcribed By: mervat 03/01/23 08:31 Electronically signed by: E-sign Petar CROW 04/25/23 10:17 Page 2 of 2 [facility] Future Appointments Appointment Date:07/13/2021 04:00:00 PM Scheduled Provider:ANNA VEGA DO Location:[facility] Appointment Type: OV Future Scheduled Tests Laboratory* Prostate Specific Antigen 08/12/20 * A1C Hemoglobin 05/27/21 * Complete Blood Count 05/27/21 * Hepatitis C Antibody IgG 08/12/20 * Complete Metabolic Panel 05/27/21 Radiology* XR Knee 3 Views Left 04/13/21 * XR Knee 3 Views Right 04/13/21 * XR Shoulder Minimum 2 Views Left 04/13/21 * XR Shoulder Minimum 2 Views Right 04/13/21 [facility] Evaluation + Plan note Future Appointments Appointment Date:05/07/2022 08:30:00 AM Scheduled Provider:ANNA VEGA DO Location:[facility] Appointment Type:PC OV Appointment Date:07/30/2022 10:00:00 AM Scheduled Provider:ANNA VEGA DO [facility] OV Future Scheduled Tests Laboratory* Rubella Antibody 01/29/22 * A1C Hemoglobin 05/27/21 * Complete Blood Count 05/27/21 * Hepatitis C Antibody IgG 07/13/21 * Mumps Antibody 01/29/22 * Rubeola IgG Antibody 01/29/22 * Complete Metabolic Panel 05/27/21 [facility] Evaluation + Plan note Future Appointments Appointment Date:07/30/2022 04:15:00 PM Scheduled Provider:ANNA VEGA DO [facility] Type:PC OV Future Scheduled Tests Laboratory* Prostate Specific Antigen 05/07/22 * A1C Hemoglobin 05/27/21 * A1C Hemoglobin 05/07/22 * Complete Blood Count 05/27/21 * Complete Blood Count 05/07/22 * Lipid Profile 05/07/22 * Complete Metabolic Panel 05/27/21 * Complete Metabolic Panel 05/07/22 [facility] Evaluation + Plan note Future Appointments Appointment Date:08/05/2022 04:30:00 PM Scheduled Provider:ANNA VEGA DO [facility] Type:PC OV [facility] Evaluation + Plan note Future Appointments Appointment Date:01/06/2023 04:30:00 PM Scheduled Provider:ANNA VEGA DO Location:[facility] Appointment Type:PC OV Diagnostic Tests Pending * Lyme AB Early Disease 10/08/22 * Lyme Disease PCR 10/08/22 [facility] Evaluation + Plan note Future Appointments Appointment Date:05/04/2023 04:30:00 PM Scheduled Provider:ANNA VEGA DO [facility] Type:PC OV [facility] Evaluation + Plan note Future Appointments Appointment Date:07/18/2023 05:00:00 PM Scheduled Provider:ANNA VEGA DO Location:[facility] Appointment Type:PC OV [facility] Evaluation + Plan note Future Appointments Appointment Date:07/08/2023 11:30:00 AM Scheduled Provider: Location:[facility] Appointment Type:PT Treatment [facility] Appointment Date:07/12/2023 01:30:00 PM Scheduled Provider: Location:[facility] Appointment Type:PT Treatment [facility] Appointment Date:07/13/2023 01:00:00 PM Scheduled Provider:ANNA VEGA DO Location:[facility] Appointment Type:PC OV Appointment Date:07/14/2023 11:00:00 AM Scheduled Provider: Location:[facility] Appointment Type:PT [facility] Appointment Date:07/18/2023 05:00:00 PM Scheduled Provider:ANNA VEGA DO Location:[facility] Appointment Type:PC OV Appointment Date:07/19/2023 11:00:00 AM Scheduled Provider: Location:[facility] Appointment Type:PT [facility] Appointment Date:07/22/2023 02:30:00 PM Scheduled Provider: Location:[facility] Appointment Type:PT [facility] Future Scheduled Tests Radiology* MRI Spine Cervical w/o Contrast 07/08/23 [facility] Evaluation + Plan note Future Appointments Appointment Date:08/17/2023 11:30:00 AM Scheduled Provider:ANNA VEGA DO Location:[facility] Appointment Type:PC OV Future Scheduled Tests Radiology* MRI Spine Cervical w/o Contrast 07/08/23 [facility] Evaluation + Plan note Future Appointments Appointment Date:09/23/2023 10:00:00 AM Scheduled Provider:ANNA VEGA DO Location:[facility] Appointment Type:PC OV Appointment Date:11/16/2023 10:30:00 AM Scheduled Provider:ANNA VEGA DO Location:[facility] Appointment Type:PC OV Future Scheduled Tests Radiology* MRI Spine Cervical w/o Contrast 07/08/23 [facility] Evaluation + Plan note Future Appointments Appointment Date:11/25/2023 09:00:00 AM Scheduled Provider: Location:[facility] Appointment Type:PT Outpatient Evaluation Appointment Date:12/29/2023 01:30:00 PM Scheduled Provider:ANNA VEGA DO Location:[facility] Appointment Type:PC OV Future Scheduled Tests Radiology* MRI Spine Cervical w/o Contrast 07/08/23 [facility] Evaluation + Plan note Future Appointments Appointment Date:12/29/2023 01:30:00 PM Scheduled Provider:ANNA VEGA DO Location:[facility] Appointment Type:PC OV Future Scheduled Tests Radiology* MRI Spine Cervical w/o Contrast 07/08/23 [facility] Evaluation + Plan note Future Appointments Appointment Date:03/02/2024 01:30:00 PM Scheduled Provider:ANNA VEGA DO Location:[facility] Appointment Type:PC Wellness Annual Future Scheduled Tests Radiology* MRI Spine Cervical w/o Contrast 07/08/23 [facility] Evaluation + Plan note Future Appointments Appointment Date:05/25/2024 10:30:00 AM Scheduled Provider:ANNA VEGA DO Location:[facility] Appointment Type:PC OV Future Scheduled Tests Radiology* MRI Spine Cervical w/o Contrast 07/08/23 [facility] evaluation + Plan note Future Appointments Appointment Date:11/22/2024 08:45:00 AM Scheduled Provider: Location:[facility] Appointment Type:XR Esophogram W/Barium Tablet Appointment Date:01/02/2025 10:00:00 AM Scheduled Provider:ANNA VEGA DO Location:[facility] Appointment Type:PC OV Future Scheduled Tests Radiology* XR Esophogram W/Barium Tablet 11/22/24 [facility] Evaluation + Plan note Future Appointments Appointment Date:01/02/2025 10:00:00 AM Scheduled Provider:ANNA VEGA DO Location:[facility] Appointment Type:PC OV [facility] Evaluation noteNo assessment information available [facility] Work Phone: Hospital course Narrative No data available for this section [facility] Hospital Discharge instructions No data available for this section [facility] Progress note No data available for this section [facility] Summary Purpose Family History No [...] 2014 1:59pm Living Will No January 23 201 4 1:59pm Power of Retail Solar Advisor No January 23, 2 014 1:59pm Chief Complaint and Reason for Visit Chief Complaint SP Additional Source Comments (unrecognized sect ion and content) No Status Records FoundNo Status Records FoundNo Status Records FoundNo Status Records FoundNo Status Records FoundNo Status Records Found INFORMATION SOURCE (unrecogn ized section and content) DATE CREATED AUTHOR 11/30/2017 [facility] DATE CREATED AUTHOR AUTHOR'S ORGANIZ ATION 04/26/2023 [facility] DATE CREATED AUTHOR AUTHOR'S ORGANIZ ATION 12/30/2023 [facility] ([place]) DATE CREATED AUTHOR AUTHOR'S ORGANIZ ATION 11/25/2024 [facility] DATE CREATED AUTHOR AUTHOR'S ORGANIZ ATION 11/26/2024 [facility] DATE CREATED AUTHOR AUTHOR'S ORGANIZ ATION 11/30/2024 [facility] Goals (unrecognized section and content) Goals may be documented in a n alternate section Care Team (unrecognized sect ion and content) Care Team Personnel Name: ANNA VEGA DO Position: P4 Physician - Primary Care Member Role: Primary Care Physician Address: Address: [address] [place] [address] Phys[place], [place] [id number] [place] [address] Care Team Related Persons Name: NASIR HAWKINS Address: Home [address] [place] [id number] [place] Care Team Personnel Name: ANNA VEGA DO Position: P4 Physician - Primary Care Member Role: Primary Care Physician Address: Address: [address] [place] [address]- Care Team Related Persons Name: NASIR HAWKINS Address: Home [address] [place] [id number] [place] Care Team Personnel Name: ANNA VEGA DO Position: P4 Physician - Primary Care Member Role: Primary Care Physician Address: Address: [address] [place] [address] [place] Care Team Related Persons Name: NASIR HAWKINS Address: Home [address] [place] [id number] [place] Patient Care team informatio n (unrecognized section and content) Care Team Personnel Name: ANNA VEGA DO Position: P4 Physician - Primary Care Member Role: Primary Care Physician Address: Address: [address] [place] [address] [place] Care Team Related Persons Name: NASIR HAWKINS Address: Home [address] [place] [id number] [place] Care Team Personnel Name: ANNA VEGA DO Position: P4 Physician - Primary Care Member Role: Primary Care Physician Address: Address: [address] [place] [address]- [place] Care Team Related Persons Name: NASIR HAWKINS Address: Home [address] [place] [id number] [place] Care Team Personnel Name: ANNA VEAG DO Position: P4 Physician - Primary Care Member Role: Primary Care Physician Address: Address: [address] [place] [address]- [place] Care Team Related Persons Name: NASIR HAWKINS Address: Home [address] [place] [phone] [place] Care Team Personnel Name: ANNA VEGA DO Position: P4 Physician - Primary Care Member Role: Primary Care Physician Address: Address: [address] [place] [address]- [place] Care Team Related Persons Name: ROSA HAWKINSNY Address: Home [address] [place] [phone] [place] Care Team Personnel Name: ANNA VEGA DO Position: P4 Physician - Primary Care Member Role: Primary Care Physician Address: Address: [address] [place] [address]- [place] Care Team Related Persons Name: NASIR HAWKINS Address: Home [address] [place] [id number] [place] Care Team Personnel Name: ANNA VEGA DO Position: P4 Physician - Primary Care Member Role: Primary Care Physician Address: Address: [address] [place] [address]- [place] Care Team Related Persons Name: HAWKINSROSANY Address: Home [address] [place] [phone] [place] Care Team Personnel Name: ANNA VEGA DO Position: P4 Physician - Primary Care Member Role: Primary Care Physician Address: Address: [address] [place] [address]- [place] Care Team Related Persons Name: NASIR HAWKINS Address: Home [address] [place] [place] [phone] [place] Care Team Personnel Name: ANNA VEGA DO Position: P4 Physician - Primary Care Member Role: Primary Care Physician Address: Address: [address] [place] [address]- [place] Care Team Related Persons Name: NASIR HAWKINS Address: Home [address] [place] [phone] [place] Care Team Personnel Name: ANNA VEGA DO Position: P4 Physician - Primary Care Member Role: Primary Care Physician Address: Address: [address] [place] [address]- [place] Care Team Related Persons Name: REGGIE HAWKINS Name: SHARRI HAWKINS Address: Home [address] [place], [place] [id number] Address: Temporary [address] [place] [id number] Care Team Personnel Name: ANNA VEGA DO Position: P4 Physician - Primary Care Member Role: Primary Care Physician Address: Address: [address] [place] [address] [place] Care Team Related Persons Name: REGGIE HAWKINS Name: SHARRI HAWKINS Address: Home [address] [place], [place] [id number] Address: Temporary [address] [place] [phone] Care Team Personnel Name: ANNA VEGA DO Position: P4 Physician - Primary Care Member Role: Primary Care Physician Address: Address: [address] [place] [address] Care Team Related Persons Name: REGGIE HAWKINS Name: SHARRI HAWKINS Address: Home [address] [place], [place] [id number] Address: Temporary [address] [place] [id number] Care Team Personnel Name: ANNA VEGA DO Position: P4 Physician - Primary Care Member Role: Primary Care Physician Address: Address: [address] [place] [address] Care Team Related Persons Name: REGGIE HAWKINS Name: SHARRI HAWKINS Address: Home [address] [place] [address] [place] [id number] Address: Temporary [address] [place], [place] [phone] Care Team Personnel Name: ANNA VEGA DO Position: P4 Physician - Primary Care Member Role: Primary Care Physician Address: [address] [place] [address] Telecom: Care Team Related Persons Name: REGGIE HAWKINS Name: RANDA DINERO Care Team Personnel Name: ANNA VEGA DO Position: P4 Physician - Primary Care Member Role: Primary Care Physician Address: [address] [place] [address] Telecom: Care Team Related Persons Name: REGGIE [...] BE BASED ON THE PRIMARY CLINICAL RECORDS. [employer] [facility]. provides no warranty or guarantee of the accuracy or completeness of information in this document.
--- NOTE | 2024-12-01 08:11 | EKG12_ITS ---
Test Reason : Blood Pressure : */* mmHG Vent. Rate : 106 BPM Atrial Rate : 106 BPM P-R Int : 166 ms QRS Dur : 136 ms QT Int : 386 ms P-R-T Axes : -5 35 -15 degrees QTcB Int : 512 ms Sinus tachycardia Right bundle branch block Artifact Confirmed by WALKER VALADEZ, JOHN ([id number]), scientific editor SHAZIA CHOW ([id number]) on 12/28/2024 2:13:39 PM Referred By: Denise Garcia Confirmed By: JOHN CARDOSO MD
--- NOTE | 2024-12-01 08:19 | ED.VIS.CHEST ---
HPI History of Present Illness Chief Complaint: Shortness of Breath Onset/Context/Timing Onset: Today Activity at onset: sleep Timing: Continuous Quality: Positive for Aching and Burning Location: Substernal Worsened By: Nothing Relieved By: Nothing Associated Symptoms: Positive for Diaphoresis and Dyspnea; Negative for Cough or Fever Narrative Narrative: Patient presents with shortness of breath and chest pain that began earlier this morning. Patient had esophageal stent placed yesterday for difficulty swallowing. Patient states the pain is over the substernal area. Patient states nothing makes it better nothing makes it worse. Patient was noted to be sweaty on arrival to the emergency department. Patient denies any new nausea or vomiting. Patient was having nausea and vomiting prior to the procedure yesterday. Patient denies any fevers or chills. PFSH FOR[facility], [facility] Medical History Autism Cancer History of Mohs micrographic surgery for skin cancer (11/26/24) Chronic constipation Wears hearing aid Wears glasses Autistic behavior Anxiety Prostate disease Back pain OCD (obsessive compulsive disorder) Non-smoker History of stress test Intellectual disability Obsessive compulsive disorder Hearing problem History of emotional problems Bone fracture Arthritis Home Medications ?Medication ?Instructions ?Recorded ?Last Taken ?Type acetaminophen 500 mg tablet 1,000 mg (2 x 500 mg) PO Q8 #0 tabs 09/29/23 Unknown Rx Held on 11/29/24. Instructions: DIFFICULTLY SWALLOWING sertraline 100 mg tablet 200 mg PO DAILY 11/29/24 Unknown History Allergy/AdvReac Type Severity Reaction Status Date / Time No Known Allergies Allergy Verified 11/30/24 14:11 Family History Other Arthritis Bowel disease Colon cancer Diabetes Heart disease High cholesterol Hypertension Osteoporosis Surgical History History of ankle surgery History of tonsillectomy History of colonoscopy History of left knee replacement History of total left hip replacement History of total right hip replacement History of nasal surgery Social History Smoking Status: Never smoker alcohol intake: never substance use type: does not use what type of physical activity do you participate in: walking ROS ROS ED Constitutional Constitutional ED: Reports sweats; Denies chills or fever(s) Eyes Eyes: Denies change in vision or diplopia ENT ENT ED: Denies rhinorrhea or sore throat Cardiovascular Cardiovascular: Reports chest pain Respiratory/Chest Respiratory/Chest: Reports dyspnea; Denies cough Gastrointestinal Gastrointestinal: Denies nausea or vomiting Musculoskeletal Musculoskeletal: Denies back pain or neck pain Integumentary Denies abscess or rash Allergic/Immunologic Allergic/Immunologic ED: Denies mouth swelling or urticaria EXAM Physical Exam Const Vital Signs: 12/01/24 07:50 12/01/24 07:59 12/01/24 08:07 Temperature 97.6 F L 96.4 F L Temperature Source Oral Pulse Rate 110 H 110 H Respiratory Rate 20 H 24 H Respiratory Effort Short of Breath Respiratory Depth Normal Respiratory Pattern Normal Blood Pressure 139/97 H 156/92 H Blood Pressure Mean 111 113 Pulse Ox 97 98 Oxygen Delivery Method Room Air Room Air 12/01/24 08:09 12/01/24 08:22 12/01/24 08:49 Temperature Temperature Source Pulse Rate 105 H 98 Respiratory Rate 26 H Respiratory Effort Respiratory Depth Respiratory Pattern Blood Pressure 156/92 H 151/94 H 134/93 H Blood Pressure Mean 106 Pulse Ox 100 Oxygen Delivery Method Room Air 12/01/24 09:00 12/01/24 10:00 12/01/24 11:00 Temperature Temperature Source Pulse Rate 99 97 93 Respiratory Rate 21 H 24 H 24 H Respiratory Effort Respiratory Depth Respiratory Pattern Blood Pressure 133/83 H 133/96 H Blood Pressure Mean 99 108 Pulse Ox Oxygen Delivery Method 12/01/24 12:41 Temperature 98 F Temperature Source Pulse Rate 73 Respiratory Rate 20 H Respiratory Effort Respiratory Depth Respiratory Pattern Blood Pressure 138/94 H Blood Pressure Mean 108 Pulse Ox 97 Oxygen Delivery Method Positive well nourished and well developed General Appearance ED: well developed and NAD HEENT Reports moist mucous membranes Neck supple and no JVD Chest Wall palpation of chest normal Resp normal respiratory effort and clear to auscultation bilaterally Cardio regular rhythm Rate: tachycardic GI soft to palpation, non-tender and non-distended Extremity normal to inspection General Extremety ED: Negative for edema General Extremity: Negative for edema Neuro oriented x3, CN's II-XII intact bilaterally and no sensory deficits noted Sensorium / Orientation: awake and alert Motor Exam: strength 5/5 throughout Heart Score History: Moderately Suspicious ECG: Nonspecific Repolarization Age: >45 - <65 years Risk Factors: No Risk Factors Troponin: </= Normal Limit Score: 3 MDM MDM MDM Narrative Medical decision making narrative: STEMI alert was called initially. Case was discussed with Dr. Garcia from cardiology. He reviewed the EKG. He does not feel this is an acute STEMI. He also requested I discussed the case with Dr. Rodriguez to determine whether the patient would be able to be placed on heparin, aspirin, or other blood thinning medications. I did discuss case with Dr. Rodriguez. He is agreeable to giving patient aspirin and or other anticoagulants. Differential diagnosis includes cardiac dysrhythmia, cardiac ischemia, pneumonia, bronchitis, pulmonary embolism, electrolyte abnormality, gastroesophageal reflux disease, and anxiety. EKG will be obtained to assess for cardiac dysrhythmia and cardiac ischemia. Chest x-ray will be obtained to assess for pneumonia or bronchitis. CBC will be obtained to assess for leukocytosis and anemia. Basic metabolic profile will be obtained to assess for electrolyte abnormality and renal function. PT with INR and PTT will be obtained to assess for coagulopathy. D-dimer will be obtained to assess for pulmonary embolism. High-sensitivity troponin will be obtained to assess for cardiac ischemia. 2-hour repeat high-sensitivity troponin will be obtained to assess for ongoing cardiac ischemia. History & Record Review Additional record(s) reviewed:: Prior outpatient record and Prior labs Lab Data Attestation: I reviewed the patient's lab results. Lab results narrative: CBC was reviewed and was within normal limits. Basic metabolic profile was reviewed. Glucose was slightly elevated at 121. BUN was slightly elevated at 25. The remainder is within normal limits. Initial high-sensitivity troponin was reviewed and was normal at 12. PT with INR and PTT were reviewed and were within normal limits. D-dimer was reviewed and was normal at 0.34. 2-hour repeat high-sensitivity troponin was reviewed and was normal at 11. Labs: Laboratory Results - last 24 hr 12/01/24 12/01/24 12/01/24 08:10 08:10 09:08 WBC Cancelled 10.3 Corrected WBC Cancelled RBC Cancelled 4.75 Hgb Cancelled 15.3 Hct Cancelled 44.7 MCV Cancelled 94.1 H MCH Cancelled 32.2 H MCHC Cancelled 34.2 RDW Std Deviation Cancelled 43.2 RDW Coeff of [place]avon Cancelled 12.4 Plt Count Cancelled 209 MPV Cancelled 8.8 Immature Gran % (Auto) Cancelled 0.300 Neut % (Auto) Cancelled 81.0 H Lymph % (Auto) Cancelled 8.0 L [place]gett % (Auto) Cancelled 10.1 H Eos % (Auto) Cancelled 0.3 Baso % (Auto) Cancelled 0.3 Absolute Neuts (auto) Cancelled 8.4 H Absolute Lymphs (auto) Cancelled 0.82 L Total Counted Cancelled Neutrophils % (Manual) Cancelled Band Neutrophils % Cancelled Lymphocytes % (Manual) Cancelled Monocytes % (Manual) Cancelled Eosinophils % (Manual) Cancelled Basophils % (Manual) Cancelled Metamyelocytes % Cancelled Myelocytes % Cancelled Promyelocytes % Cancelled Blast Cells % Cancelled Plasma Cell % (Manual) Cancelled Other Cells % Cancelled Nucleated RBC % Cancelled 0 Nucleated RBCs/100 WBC Cancelled Differential Comment Cancelled Diff Path Review Cancelled Hypersegmented Neuts Cancelled Atypical Lymphocytes Cancelled Reactive Lymphocytes Cancelled Smudge Cells Cancelled Toxic Granulation Cancelled Toxic Vacuolation Cancelled Dohle Bodies Cancelled Prashanth Rods Cancelled Platelet Estimate Cancelled Plt Morphology Comment Cancelled RBC Morphology Cancelled Cancelled Polychromasia Cancelled Hypochromasia Cancelled Basophilic Stippling Cancelled Anisocytosis Cancelled Microcytosis Cancelled Macrocytosis Cancelled Spherocytes Cancelled Sickle Cells Cancelled Target Cells Cancelled Tear Drop Cells Cancelled Ovalocytes Cancelled Stomatocytes Cancelled [place] Bodies Cancelled [place] Cells Cancelled Bite Cells Cancelled Crenated Cell Cancelled Acanthocytes (Spur) Cancelled Rouleaux Cancelled Schistocytes Cancelled PT 14.5 INR 1.1 APTT 26.6 D-Dimer Quant (PE/DVT) 0.34 Sodium Cancelled 141 Potassium Cancelled 3.7 Chloride Cancelled 105 Carbon Dioxide Cancelled 23.3 Anion Gap Cancelled 13 BUN Cancelled 25 H Creatinine Cancelled 0.97 Estim Creat Clear Calc Cancelled 90.53 Est GFR (MDRD) Non-Af Cancelled 87 BUN/Creatinine Ratio Cancelled 26.1 H Glucose Cancelled 121 H Calcium Cancelled 9.4 Troponin T High Sens Cancelled 12 Troponin T Hi Sens 2 Hr 12/01/24 11:05 WBC Corrected WBC RBC Hgb Hct MCV MCH MCHC RDW Std Deviation RDW Coeff of Donavon Plt Count MPV Immature Gran % (Auto) Neut % (Auto) Lymph % (Auto) Daggett % (Auto) Eos % (Auto) Baso % (Auto) Absolute Neuts (auto) Absolute Lymphs (auto) Total Counted Neutrophils % (Manual) Band Neutrophils % Lymphocytes % (Manual) Monocytes % (Manual) Eosinophils % (Manual) Basophils % (Manual) Metamyelocytes % Myelocytes % Promyelocytes % Blast Cells % Plasma Cell % (Manual) Other Cells % Nucleated RBC % Nucleated RBCs/100 WBC Differential Comment Diff Path Review Hypersegmented Neuts Atypical Lymphocytes Reactive Lymphocytes Smudge Cells Toxic Granulation Toxic Vacuolation Dohle Bodies Prashanth Rods Platelet Estimate Plt Morphology Comment RBC Morphology Polychromasia Hypochromasia Basophilic Stippling Anisocytosis Microcytosis Macrocytosis Spherocytes Sickle Cells Target Cells Tear Drop Cells Ovalocytes Stomatocytes [place] Bodies Adan Cells Bite Cells Crenated Cell Acanthocytes (Spur) Rouleaux Schistocytes PT INR APTT D-Dimer Quant (PE/DVT) Sodium Potassium Chloride Carbon Dioxide Anion Gap BUN Creatinine Estim Creat Clear Calc Est GFR (MDRD) Non-Af BUN/Creatinine Ratio Glucose Calcium Troponin T High Sens Troponin T Hi Sens 2 Hr 11 Radiography Chest X-Ray - ED: 1 View, Read by ED Physician, Read by Radiologist and No Acute Disease Diagnostic Testing: Clinical Impression(s) from Imaging Studies Chest X-Ray 12/01/24 08:25 IMPRESSION: Stent overlies the lower thorax/upper abdomen. Mild pulmonary vascular congestion. No focal consolidation. Bibasilar subsegmental atelectasis. Trace left base effusion. No pneumothorax. Cardiac silhouette is unremarkable. Reading Location: [facility] Portable 1 view chest x-ray was obtained. On my independent interpretation, lung lugo show mild vascular congestion. There is subsegmental atelectasis bilaterally. There are no acute infiltrates. There is no pneumothorax. There is a small left effusion. There is a stent in the lower esophagus. There is normal cardiac silhouette. Bony thorax is normal. There is no acute process noted. Radiologist also interpreted the x-ray and agrees. EKG Initial EKG: Interpretation: Sinus Tachycardia (106) and RBBB Comments: EKG was obtained. On my independent interpretation, it showed sinus tachycardia with a rate of 106. [place] interval was normal at 166 ms. QRS interval was slightly prolonged at 136 ms. QTc interval was slightly prolonged at 512 ms. [place] is normal. There is a right bundle branch block pattern noted. There is questionable ST elevation in leads I and aVL. This is new compared to previous EKG dated 01/17/2014. The right bundle branch block was unchanged. Prior EKG tracings: available for review Management Discussion w/another healthcare provider: Hospitalist and Yard Brakeman (Dr. Garcia, Dr. Rodriguez) Treatment and Re-Evaluation :: Patient was given aspirin. Patient was advised of his findings. Patient has a HEART score of 3. Patient is no longer diaphoretic. Patient adamantly wants to go home. Case was discussed with Dr. Rodriguez again. He stated that this could be a reaction to the stent placement or the esophageal tumor. Patient was instructed to follow-up with Dr. Rodriguez and his primary care physician in 5 to 7 days. Patient was instructed to return if worse in any way. Patient and family understood and were agreeable with the plan. All questions were answered. Discharge Plan Triage Chief Complaint: Shortness of Breath ED Provider: Denilson Harris Dx/Rx/DC Orders Clinical Impression: Chest pain, Other acute postprocedural pain Instructions: ED Chest Pain, Uncertain Cause Prescriptions: No Action acetaminophen 500 mg Tablet 1,000 mg PO Q8 Qty: 0 0RF sertraline 100 mg tablet 200 mg PO DAILY Primary Care Provider: Gerard Graves Referrals: Gerard Graves DO [Primary Care Provider] - 3-5 Days Prashanth Rodriguez DO [Med Staff - Active Staff] - Keep Stephan appointment Print Language: Ivorian Disposition Disposition: Home, Self Care Discharge Date/Time: 12/01/24 12:41
[2024-12-01] MEDS: Aspirin 81 MG TAB.CHEW 324 MG PO (08:22)
[2024-12-01] MEDS: Nitroglycerin SL (ED/IMG/CATH) 0.4 MG TABLET SL (08:22)
--- NOTE | 2024-12-01 08:25 | RAD_ITS ---
PROCEDURE: CHEST 1 VIEW (PORTABLE) 12/01/2024 REASON FOR EXAM: CHEST PAIN TECHNIQUE: Frontal view of the chest. COMPARISON: None RAD/Chest 1 View (Portable) IMPRESSION: Stent overlies the lower thorax/upper abdomen. Mild pulmonary vascular congestion. No focal consolidation. Bibasilar subsegme ntal atelectasis. Trace left base effusion. No pneumothorax. Cardiac silhouette is unremarkable. Reading Location: [id number]
[2024-12-01 09:01] LABS: International Normalized Ratio 1.1; Partial Thromboplast Time 26.6 Seconds (24.1-36.2); Prothrombin Time (Protime)PT. 14.5 SECONDS (11.7-14.9)
[2024-12-01 09:20] LABS: Anion Gap 13 (5-15); BUN 25 mg/dL (4-19); BUN/Creat Ratio 26.1 RATIO (10-20); Calcium,Total 9.4 mg/dL (7.6-11.0); Carbon Dioxide 23.3 mmol/L (21.0-32.0); Chloride 105 mmol/L (98-108); Creatinine, Serum 0.97 mg/dL (0.70-1.20); EST Glomerular Filtration Rate 87 (>60); Estimated Creatinine Clearance 90.53 ml/min (50-250); Glucose 121 mg/dL (70-99); Potassium 3.7 mmol/L (3.3-5.1); Sodium Level 141 mmol/L (133-145)
[2024-12-01 09:21] LABS: Absolute Lymphocyte Count 0.82 X10^3/uL (0.83-4.51); Absolute Neutrophil Count 8.4 X10^3/uL (2.0-7.7); Basophil# 0.03 X10^3/uL; Basophil% 0.3 % (0-1); Eosinophil# 0.03 X10^3/uL; Eosinophils% 0.3 % (0-5); Hematocrit 44.7 % (40-54); Hemoglobin 15.3 g/dL (13.0-16.5); Lymphocyte # 0.82 X10^3/ul (0.83-4.51); Mean Corp Hgb Conc 34.2 g/dL (32-36); Mean Corpuscular Hgb 32.2 pg (27.0-32.0); Mean Corpuscular Volume 94.1 fL (80-94); Mean Platelet Vol. 8.8 fl (6.2-12.0); Monocyte# 1.04 X10^3/uL; Monocyte% 10.1 % (0-10); NRBC Flagged by Analyzer 0 % (0-5); Neutrophil # 8.35 X10^3/uL (2.7-7.7); Platelet Count 209 K/mm3 (150-450); RBC Distribution Width CV 12.4 % (11.6-14.6); RBC Distribution Width SD 43.2 fl (35.1-43.9); Red Blood Count 4.75 M/mm3 (4.6-6.2); White Blood Count 10.3 K/mm3 (4.4-11.0)
[2024-12-01 09:22] LABS: Troponin T High Sensitivity 12 ng/L (<=22)
--- NOTE | 2024-12-01 09:22 | ED.RN ---
delay in troponin result d/t chemistry hemolyzing twice
[2024-12-01 10:49] LABS: D-Dimer Quantitative (DVT/PE) 0.34 FEU/ug/m (0.27-0.49)
[2024-12-01 11:45] LABS: Troponin T High Sens 2 HR 11 ng/L (<=22)
== END 2024-12-01 12:41 | disposition home or self-care (01) ==
PROVIDERS: Emergency Provider Emergency Medicine; PCP Student in an Organized Health Care Education/Training Program; Referring Provider Internal Medicine Cardiovascular Disease; Visit Provider Emergency Medicine
DX: R07.9 Chest pain, unspecified (principal); R06.02 Shortness of breath; G89.18 Other acute postprocedural pain; Z85.828 Personal history of other malignant neoplasm of skin; F41.9 Anxiety disorder, unspecified; Z79.899 Other long term (current) drug therapy; Z96.652 Presence of left artificial knee joint; Z96.643 Presence of artificial hip joint, bilateral
CPT/HCPCS: 71045; 80048; 84484; 85025; 85379; 85610; 85730; 93005; 99285; A4216

== ENCOUNTER 2024-12-05 11:08 | Emergency (ER) | payer OTHER, SELFPAY ==
[2024-12-05 11:08] VITALS: BP 130/84; PULSE 81; RESP 14; TEMP 36.8; O2SAT 98; BMI 28.9
[2024-12-05] MEDS: Lidocaine 2% Viscous15 ML UDC 15 ML PO (12:14)
--- NOTE | 2024-12-05 12:18 | EDS_ITS ---
HPI History of Present Illness Chief Complaint: Other, Pain/Inj Narrative Narrative: 64-year-old male past medical history of autism/intellectual disability presents with his sister, his caregiver because of pain with swallowing. He was being worked up for dysphagia and difficulty swallowing for the past few months. He had upper endoscopy done twice on Tuesday of last week, approximately [address] Rodriguez[address] They state that they did endoscopy twice, 1 initially and a second 1 for stenting because they found a tissue. Since then, patient has been seen in the emergency department twice for chest pain and pain with swallowing. He has had chest pain workups that are negative. His sister states that he was given a GI cocktail and hydrocodone when he was seen at [facility] on Tuesday. He now has wincing pain whenever he swallows. It has been difficult for him to eat, or even drink water because he winces in pain. The hydrocodone seems to help temporarily. His sister is concerned because the weekend is coming up and she is running out of pain medications. [facility] Medical History Autism Cancer History of Mohs micrographic surgery for skin cancer (11/26/24) Chronic constipation Wears hearing aid Wears glasses Autistic behavior Anxiety Prostate disease Back pain OCD (obsessive compulsive disorder) Non-smoker History of stress test Intellectual disability Obsessive compulsive disorder Hearing problem History of emotional problems Bone fracture Arthritis Home Medications ?Medication ?Instructions ?Recorded ?Last Taken ?Type sertraline 100 mg tablet 200 mg PO DAILY 11/29/24 Unk nown History amitriptyline 25 mg tablet 25 mg PO QHS 12/05/24 Unkno wn History famotidine 20 mg tablet 20 mg PO BID 12/05/24 Unknow n History hydrocodone-acetaminophen 5-325mg 1 tab PO Q6H PRN PRN Pain 3 days 12/05/24 Unknown Rx 5mg-325mg #12 TABLETS hydrocodone-acetaminophen 5-325mg 1 tab PO Q6H PRN PRN pain 12/05/24 Unknown History 5mg-325mg lidocaine HCl 2 % mucosal solution 1 applic mucous mem brane TID PRN 12/05/24 Unknown Rx (Lidocaine Viscous) pain #300 mL ondansetron 4 mg disintegrating 4 mg PO Q6H PRN PRN na usea and 12/05/24 Unknown History tablet vomiting Allergy/AdvReac Type Severity Reaction Status Date / Time No Known Allergies Allergy Verified 12/05/24 11:09 Family History Other Arthritis Bowel disease Colon cancer Diabetes Heart disease High cholesterol Hypertension Osteoporosis Surgical History History of ankle surgery History of tonsillectomy History of colonoscopy History of left knee replacement History of total left hip replacement History of total right hip replacement History of nasal surgery Social History Smoking Status: Never smoker alcohol intake: never substance use type: does not use what type of physical activity do you participate in: walking ROS ROS ED ROS Narrative Review of systems positive for dysphagia and a dyne aphasia. No recent fevers or chills, no nausea or vomiting. Wincing pain with swallowing food. EXAM Physical Exam Narrative Exam Narrative: Afebrile. Vital signs noted. Nontoxic-appearing. Cardiovascular examination reveals regular rate and rhythm. Lungs are clear to auscultation bilaterally. Abdomen is soft and nontender without guarding or rebound. Neurological examination is nonfocal and nonlateralizing. Const Vital Signs: 12/05/24 11:08 12/05/24 11:23 Temperature 98.3 F Temperature Source Temporal Pulse Rate 81 Respiratory Rate 14 Respiratory Effort Normal Respiratory Pattern Normal Blood Pressure 130/84 H Blood Pressure Mean 99 Pulse Ox 98 Oxygen Delivery Method Room Air MDM MDM MDM Narrative Medical decision making narrative: I had a lengthy discussion with the patient and his sister. Differential diagnosis includes but not limited to esophageal spasm versus mucosal irritation from endoscopy. I discussed the patient with Dr. Rodriguez, and reviewed his EMR. It was found on upper endoscopy that the tissue mentioned was biopsied, and that the patient requires follow-up with hematology/oncology. I attempted to speak with his sister alone, but patient did not want her to leave the room. Patient was given a GI cocktail here and prescription written for viscous lidocaine to take up to 3 times a day as needed to help with his odynophagia. Additionally, he was given 12 more tablets of hydrocodone but she was told not to fill it within the 3 days that she had received the prescription for narcotic pain medication from the [place] emergency department. At this point in time, I do not feel that he requires emergent transfer as he is able to swallow his own secretions. His sister voiced that she understood follow-up plans as she had been instructed by Dr. Rodriguez previously. I do not feel that he requires any imaging or repeat laboratory work today. Return instructions to the emergency department were reviewed. Disposition is discharged in stable condition. History & Record Review Discussion w/independent historian: Patient and Family Discharge Plan Triage Chief Complaint: Other, Pain/Inj ED Provider: Min Alvarado Dx/Rx/DC Orders Clinical Impression: Intellectual disability, Dysphagia, Odynophagia Instructions: ED Soft Diet, ED Pain, Acute, Uncertain Cause, ED Dysphagia (Adult) Prescriptions: New hydrocodone-acetaminophen 5-325 mg tablet 1 tab PO Q6H PRN PRN (Reason: Pain) 3 Days Qty: 12 0RF lidocaine HCl [Lidocaine Viscous] 2 % solution 1 applic mucous membrane TID PRN (Reason: pain) Qty: 300 0RF Rx Instructions: p.o. as needed for esophageal pain No Action sertraline 100 mg tablet 200 mg PO DAILY hydrocodone-acetaminophen 5-325 mg tablet 1 tab PO Q6H PRN PRN (Reason: pain) famotidine 20 mg tablet 20 mg PO BID amitriptyline 25 mg tablet 25 mg PO QHS ondansetron 4 mg tablet,disintegrating 4 mg PO Q6H PRN PRN (Reason: nausea and vomiting) Primary Care Provider: Gerard Graves Referrals: Gerard Graves DO [Primary Care Provider] - As soon as possible Prashanth Rodriguez DO [Med Staff - Active Staff] - As Needed Activity Restrictions/Additional Instructions: Follow-up with the physicians that Dr. Rodriguez indicated. Return with inability to swallow your own saliva, Print Language: Greenlandic Disposition Disposition: Home, Self Care
[2024-12-05 12:53] VITALS: BP 132/66; PULSE 78; RESP 14; TEMP 37.2; O2SAT 99
== END 2024-12-05 12:55 | disposition home or self-care (01) ==
PROVIDERS: Emergency Provider Emergency Medicine; PCP Student in an Organized Health Care Education/Training Program; Referring Provider Emergency Medicine; Visit Provider Emergency Medicine
DX: R13.10 Dysphagia, unspecified (principal); F84.0 Autistic disorder; F79 Unspecified intellectual disabilities; Z85.828 Personal history of other malignant neoplasm of skin; F41.9 Anxiety disorder, unspecified; Z79.899 Other long term (current) drug therapy; Z96.652 Presence of left artificial knee joint; Z96.643 Presence of artificial hip joint, bilateral
CPT/HCPCS: 99283

== ENCOUNTER 2025-01-01 10:21 | Day surgery (SDC) | payer OTHER, SELFPAY ==
--- NOTE | 2024-12-19 16:47 | PAT.ANE_ITS ---
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 When Was Last Pacemaker Check QUESTION #4 FULL TEXT: You/Your Family Experience fever (hyperthermia) with Anesthesia Last Oral Intake Last Oral intake: Last Oral Intake NPO since Meds taken in AM with sips of water? Meds patient instructed to take am of surgery PONV PONV - chartered financial analyst: PONV - chartered financial analyst Female No 12/19/24 14:17 HX of Motion Sickness No 12/19/24 14:17 HX of N/V After Surgery No 12/19/24 14:17 Non-Smoker Yes 12/19/24 14:17 Duration of Surgery greater No 12/19/24 14:17 than 60 minutes Number of Risk Factors 1 12/19/24 14:17 PONV Score Low Risk 12/19/24 14:17 Height & Weight Height & Weight: Anesthesia: Height & Weight Height 5 ft 11 in 12/05/24 11:08 Respiratory Assessment Respiratory Assessment - chartered financial analyst: Respiratory Tract Infection Hx - chartered financial analyst Hx Respiratory Tract Infection No 12/19/24 14:17 STOP Sleep Apnea STOP Sleep Apnea - chartered financial analyst: STOP Sleep Apnea - chartered financial analyst Hx Hypertension No 12/19/24 14:17 Hx Sleep Apnea No 12/19/24 14:17 CPAP No 12/19/24 14:17 BIPAP No 12/19/24 14:17 Do you snore loudly (louder No 12/19/24 14:17 than talking or can be heard Do you often feel tired/ No 12/19/24 14:17 fatigued/ sleepy during daytime? Has anyone observed you stop No 12/19/24 14:17 breathing during sleep? STOP Results Negative 12/19/24 14:17 QUESTION #5 FULL TEXT : Do you snore loudly (louder than talking or can be heard through closed doors)? 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 Specify any problems Hx of Preganancy in last 3 N/A 12/19/24 14:17 Months Nurse Filling Out Transfusion DSCHRIBER 12/19/24 14:17 & Questions: Date: 12/19/24 12/19/24 14:17 Time: 14:18 12/19/24 14:17 Patient unable to answer at this time (ie. confused, unrespo /Reproduction History /Reproductive History - chartered financial analyst: /Reproductive Hx- chartered financial analyst Hx Now Gestational Age (in weeks): EDC: Hx Hx Para Hx Section SAB No 12/19/24 14:17 PFSH Medical History (Updated 12/19/24 @ 14:20 by Ibeth Ott) Autism Cancer History of Mohs micrographic surgery for skin cancer (11/26/24) Chronic constipation Wears hearing aid Wears glasses Anxiety Prostate disease Back pain OCD (obsessive compulsive disorder) Non-smoker History of stress test Intellectual disability Obsessive compulsive disorder Hearing problem History of emotional problems Arthritis Home Medications ?Medication ?Instructions ?Recorded ?Last Taken ?Type sertraline 100 mg tablet 200 mg PO DAILY 11/29/24 Unk nown History amitriptyline 25 mg tablet 25 mg PO DAILY 12/05/24 Unk nown History famotidine 20 mg tablet 20 mg PO DAILY 12/05/24 Unkn own History hydrocodone-acetaminophen 5-325mg 1 tab PO Q6H PRN PRN pain 12/05/24 Unknown History 5mg-325mg lidocaine HCl 2 % mucosal solution 1 applic mucous mem brane TID PRN 07/02/25 Unknown Rx (Lidocaine Viscous) pain #300 mL bupropion HCl 150 mg 24 hr tablet, 300 mg PO QDAY 12/04 11/28 Unknown History extended release Allergy/AdvReac Type Severity Reaction Status Date / Time No Known Allergies Allergy Verified 12/19/24 14:13 Family History Other Arthritis Bowel disease Colon cancer Diabetes Heart disease High cholesterol Hypertension Osteoporosis Surgical History (Updated 12/19/24 @ 14:21 by Ibeth Ott) History of esophagogastroduodenoscopy (EGD) History of ankle surgery History of tonsillectomy History of colonoscopy History of left knee replacement History of total left hip replacement History of total right hip replacement History of nasal surgery Social History Smoking Status: Never smoker alcohol intake: never substance use type: does not use what type of physical activity do you participate in: walking Audit: Pertinent Findings Pertinent Findings EKG Perinent findings: EKG done on 12/01/2024: Vent. Rate : 106 BPM Atrial Rate : 106 BPM P-R Int : 166 ms QRS Dur : 136 ms QT Int : 386 ms P-R-T Axes : -5 35 -15 degrees QTcB Int : 512 ms Critical Test Result: STEMI Sinus tachycardia Right bundle branch block ST elevation consider lateral injury or acute infarct Recommendation Anesthesia Recommendation Anesthesia recommendation: F/U recommended (Patient's EKG demonstrates STEMI with no other follow-up that I can see. There is no stress test that I can see in our chart.)
--- NOTE | 2024-12-28 15:12 | PAT.ANESEVAL ---
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 When Was Last Pacemaker Check QUESTION #4 FULL TEXT: You/Your Family Experience fever (hyperthermia) with Anesthesia Last Oral Intake Last Oral intake: Last Oral Intake NPO since Meds taken in AM with sips of water? Meds patient instructed to take am of surgery PONV PONV - service and repair supervisor: PONV - service and repair supervisor Female No 12/19/24 14:17 HX of Motion Sickness No 12/19/24 14:17 HX of N/V After Surgery No 12/19/24 14:17 Non-Smoker Yes 12/19/24 14:17 Duration of Surgery greater No 12/19/24 14:17 than 60 minutes Number of Risk Factors 1 12/19/24 14:17 PONV Score Low Risk 12/19/24 14:17 Height & Weight Height & Weight: Anesthesia: Height & Weight Height 5 ft 11 in 12/27/24 13:04 Respiratory Assessment Respiratory Assessment - service and repair supervisor: Respiratory Tract Infection Hx - service and repair supervisor Hx Respiratory Tract Infection No 12/19/24 14:17 STOP Sleep Apnea STOP Sleep Apnea - service and repair supervisor: STOP Sleep Apnea - service and repair supervisor Hx Hypertension No 12/19/24 14:17 Hx Sleep Apnea No 12/19/24 14:17 CPAP No 12/19/24 14:17 BIPAP No 12/19/24 14:17 Do you snore loudly (louder No 12/19/24 14:17 than talking or can be heard Do you often feel tired/ No 12/19/24 14:17 fatigued/ sleepy during daytime? Has anyone observed you stop No 12/19/24 14:17 breathing during sleep? STOP Results Negative 12/19/24 14:17 QUESTION #5 FULL TEXT : Do you snore loudly (louder than talking or can be heard through closed doors)? 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 Specify any problems Hx of Preganancy in last 3 N/A 12/19/24 14:17 Months Nurse Filling Out Transfusion DSCHRIBER 12/19/24 14:17 & Questions: Date: 12/19/24 12/19/24 14:17 Time: 14:18 12/19/24 14:17 Patient unable to answer at this time (ie. confused, unrespo /Reproduction History /Reproductive History - service and repair supervisor: /Reproductive Hx- service and repair supervisor Hx Now Gestational Age (in weeks): EDC: Hx Hx Para Hx Section SAB No 12/19/24 14:17 PFSH Medical History Tricuspid valve regurgitation Mitral valve regurgitation Autism Cancer History of Mohs micrographic surgery for skin cancer (11/26/24) Chronic constipation Wears hearing aid Wears glasses Anxiety Prostate disease Back pain OCD (obsessive compulsive disorder) Non-smoker History of stress test Intellectual disability Obsessive compulsive disorder Hearing problem History of emotional problems Arthritis Home Medications ?Medication ?Instructions ?Recorded ?Last Taken ?Type sertraline 100 mg tablet 200 mg PO DAILY 11/29/24 Unknown History amitriptyline 25 mg tablet 25 mg PO DAILY 12/05/24 Unknown History famotidine 20 mg tablet 20 mg PO DAILY 12/05/24 Unknown History hydrocodone-acetaminophen 5-325mg 1 tab PO Q6H PRN PRN pain 12/05/24 Unknown History 5mg-325mg lidocaine HCl 2 % mucosal solution 1 applic mucous membrane TID PRN 07/02/25 Unknown Rx (Lidocaine Viscous) pain #300 mL bupropion HCl 150 mg 24 hr tablet, 300 mg PO QDAY 12/19/24 Unknown History extended release Allergy/AdvReac Type Severity Reaction Status Date / Time No Known Allergies Allergy Verified 12/27/24 13:05 Family History Other Arthritis Bowel disease Colon cancer Diabetes Heart disease High cholesterol Hypertension Osteoporosis Surgical History History of esophagogastroduodenoscopy (EGD) History of ankle surgery History of tonsillectomy History of colonoscopy History of left knee replacement History of total left hip replacement History of total right hip replacement History of nasal surgery Social History Smoking Status: Never smoker alcohol intake: never substance use type: does not use what type of physical activity do you participate in: walking Audit: Pertinent Findings HISTORY of Pertinent Findings History of Pertinent Findings: EKG Pertinent Findings EKG Perinent findings EKG done on 12/01/2024: 12/19/24 16:50 Vent. Rate : 106 BPM Atrial Rate : 106 BPM P-R Int : 166 ms QRS Dur : 136 ms QT Int : 386 ms P-R-T Axes : -5 35 -15 degrees QTcB Int : 512 ms Critical Test Result: STEMI Sinus tachycardia Right bundle branch block ST elevation consider lateral injury or acute infarct Pertinent Findings EKG Perinent findings: Reread of previous EKG from 12/01/[address] Brooks. Sinus tachycardia 106 bpm. Right bundle branch block. Recommendation Anesthesia Recommendation Anesthesia recommendation: OPTIMIZED for anesthesia
[2025-01-01] VITALS (8 sets, daily range): BP systolic 124–147; BP diastolic 87–97; PULSE 93–95; RESP 14–20; TEMP 36.1–36.3; O2SAT 93–99; BMI 27.3
[2025-01-01] MEDS: Lactated Ringers 1,000 ML 15 ML IV (10:58)
--- NOTE | 2025-01-01 11:20 | PCM.HP.STD ---
HPI - General General Date of Admission: 01/01/25 Date of Service: 01/01/25 HPI Narrative CYNDEE HAWKINS, is a 64 M with developmental delay, autism and anxiety presented with dysphagia. Swallow study showed irregular stricture at the GE junction. Upper GI endoscopy on 11/30/2024 showed large fungating mass with bleeding about 36 cm from the incisors. Stenting was done. 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 He was seen CT surgery at [facility] on 12/11/2024 neoadjuvant chemoradiation therapy followed by surgery versus definitive chemoradiation therapy with discussed. He had a PET CT scan on 12/12/2024 which showed hypermetabolic activity in the lower esophagus near the GE junction with no lymph nodes. Stent had migrated into the gastric body. He comes in today for stent removal and PEG tube placement. [facility] Medical History Tricuspid valve regurgitation Mitral valve regurgitation Autism Cancer History of Mohs micrographic surgery for skin cancer (11/26/24) Chronic constipation Wears hearing aid Wears glasses Anxiety Prostate disease Back pain OCD (obsessive compulsive disorder) Non-smoker History of stress test Intellectual disability Obsessive compulsive disorder Hearing problem History of emotional problems Arthritis Home Medications ?Medication ?Instructions ?Recorded ?Last Taken ?Type sertraline 100 mg tablet 200 mg PO DAILY 11/29/24 01/01/25 08:00 History amitriptyline 25 mg tablet 25 mg PO DAILY 12/05/24 01/01/25 08:00 History famotidine 20 mg tablet 20 mg PO DAILY 12/05/24 Unknown History hydrocodone-acetaminophen 5-325mg 1 tab PO Q6H PRN PRN pain 12/05/24 Unknown History 5mg-325mg lidocaine HCl 2 % mucosal solution 1 applic mucous membrane TID PRN 12/05/24 Unknown Rx (Lidocaine Viscous) pain #300 mL bupropion HCl 150 mg 24 hr tablet, 300 mg PO QDAY 12/19/24 01/01/25 08:00 History extended release Allergy/AdvReac Type Severity Reaction Status Date / Time No Known Allergies Allergy Verified 01/01/25 10:42 Family History Other Arthritis Bowel disease Colon cancer Diabetes Heart disease High cholesterol Hypertension Osteoporosis Surgical History History of esophagogastroduodenoscopy (EGD) History of ankle surgery History of tonsillectomy History of colonoscopy History of left knee replacement History of total left hip replacement History of total right hip replacement History of nasal surgery Social History Smoking Status: Never smoker alcohol intake: never substance use type: does not use what type of physical activity do you participate in: walking ROS Constitutional Constitutional: Denies fatigue, fever(s), poor appetite, weight gain or weight loss Gastrointestinal Gastrointestinal: Denies belching, bloating, change in bowel habits, change in stool character, chewing difficulty, coffee ground emesis, constipation, cramping, diarrhea, dyspepsia, dysphagia, early satiety, excessive flatus, fecal incontinence, heartburn, hematemesis, hematochezia, hemorrhoids, loose stools, melena, nausea, odynophagia, rectal bleeding, tenesmus, vomiting or weight changes Vital Signs Vital Signs Vital Signs: 01/01/25 10:51 01/01/25 10:51 Temperature 96.9 F L Temperature Source Temporal Pulse Rate 95 Respiratory Rate 14 Respiratory Pattern Normal Blood Pressure 124/97 H Blood Pressure Mean 106 Blood Pressure Source Monitor Blood Pressure Position Semi-Fowlers Blood Pressure Location Right Arm Pulse Ox 99 Oxygen Delivery Method Room Air Weight Weight: 196 lb 3.382 oz Body Mass Index (BMI) 27.3 Physical Exam Const alert, oriented x3, no apparent distress and healthy appearing General Appearance: cooperative GI normal to inspection, nondistended, normoactive bowel sounds, soft to palpation, non-tender and non-distended Percussion: normal to percussion Rectal Exam: deferred Assessment & Plan Assessment/Plan (1) Dysphagia: (2) Heartburn: PLAN: Assessment and Plan Assessment and Plan (1) Dysphagia: Status: Acute (2) Heartburn: Status: Acute Plan: Discontinue AF BetaFood 0800 TID AC Orders: Orders Swallowing Function w/Video Today R12 - Heartburn, R13.10 - Dysphagia, unspecified Esophagus Dual Contrast Today R12 - Heartburn, R13.10 - Dysphagia, unspecified Medications: Discontinued hydroxyzine HCl Discontinued Reason: Pt no longer taking 20 mg PO TID PRN for anxiety F42.9 - Obsessive-compulsive disorder, unspecified, F79 - Unspecified intellectual disabilities Plan 64-year-old male presents for initial consultation with complaints of dysphagia. His past medical history is significant for autism and he is seen in the office today with his sister. He complains of intermittent episodes of dysphagia with solid foods and regurgitation with solids and liquids for the past 6 weeks. He also complains of heartburn, a dyne aphasia, and intermittent choking episodes. He was started on pantoprazole 40 mg approximately 2 weeks ago and denies any symptomatic improvement. On his upper endoscopy was discovered to have esophageal mass in the mid to distal esophagus secondary to adenocarcinoma as confirmed by biopsies. He underwent endoscopic stent placement however and unfortunately the stent migrated into his stomach. He is here for stent removal and PEG tube placement. The patient sister who is his power of service captain along with the patient were explained alternatives, risk and benefits include understanding bleeding, tract, sepsis, perforation, need emergent . He will have an ASA of 3. Note: [employer] speech recognition dyer and washer software was used to create portions of this document. Sound-alike and misspelled words, as well as other dyer and washer errors may be contained in the documentation.
--- NOTE | 2025-01-01 11:24 | PRE.ANES_ITS ---
ASA Classification* ASA Classification ASA Classification: 3 Assessment & Plan Anesthesia* Anesthesia Assessment Anesthesia Assessment: Discussed sedation and/or anesthesia options, risks, benefits, and alternatives with patient/parents/legal guardian/POA. Questions invited. The patient/parents/legal guardian/POA seems to understand and agrees to proceed with anesthesia plan. Reviewed the physical assessment, medical history, allergy history and patient home medications list prior to surgery/procedure/anesthetic and documented any changes. Performed airway and anesthesia risk assessments. Anesthesia Type Anesthesia Type: MAC History Source History Obtained from:: Patient and Chart Anesthesia Focused Assessment* Temperature: 96.9 F Pulse Rate: 95 Blood Pressure: 124/97 Respiratory Rate: 14 Pulse Ox: 99 Oxygen Delivery Method: Room Air Airway Assessment Mouth opens: >3 cm Mallampati Score: III Teeth Condition: Caps/Crowns (Patient has right upper crown. It is tight.) Neck Range of motion (ROM): Limited ROM (Slight Decrease) Labs Anesthesia Preop lab: CBC WBC 10.3 K/mm3 (4.4-11.0) 12/01/24 09:08 12/01/24 RBC 4.75 M/mm3 (4.6-6.2) 12/01/24 09:08 12/01/24 Hgb 15.3 g/dL (13.0-16.5) 12/01/24 09:08 12/01/24 Hct 44.7 % (40-54) 12/01/24 09:08 12/01/24 Plt Count 209 K/mm3 (150-450) 12/01/24 09:08 12/01/24 CHEMISTRY Potassium 3.7 mmol/L (3.3-5.1) 12/01/24 09:08 12/01/24 Sodium 141 mmol/L (133-145) 12/01/24 09:08 12/01/24 Magnesium 2.1 mg/dL (1.6-2.6) 09/13/23 11:50 09/13/23 BUN 25 mg/dL (4-19) H 12/01/24 09:08 12/01/24 Creatinine 0.97 mg/dL (0.70-1.20) 12/01/24 09:08 12/01/24 Glucose 121 mg/dL (70-99) H 12/01/24 09:08 12/01/24 POC Glucose 112 mg/dL (74-106) H 09/26/23 06:03 09/26/23 COAG PT 14.5 SECONDS (11.7-14.9) 12/01/24 08:10 Pre-Assessment Diagnosis/Proposed Procedure Planned Operative Procedure(s): EGD Anesthesia History 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 When Was Last Pacemaker Check QUESTION #4 FULL TEXT: You/Your Family Experience fever (hyperthermia) with Anesthesia Last Oral Intake Last Oral intake: Last Oral Intake NPO since 08:00 01/01/25 10:51 Meds taken in AM with sips of Yes 01/01/25 10:51 water? Meds patient instructed to AMITRIPTYLINE,WELLBUTRIN, 01/01/25 10:51 take am of surgery ZOLOFT Any additional information?: Yes Meds taken in AM with sips of water?: Yes PONV PONV - car salesperson: PONV - car salesperson Female No 12/19/24 14:17 HX of Motion Sickness No 12/19/24 14:17 HX of N/V After Surgery No 12/19/24 14:17 Non-Smoker Yes 12/19/24 14:17 Duration of Surgery greater No 12/19/24 14:17 than 60 minutes Number of Risk Factors 1 12/19/24 14:17 PONV Score Low Risk 12/19/24 14:17 Height & Weight Height & Weight: Anesthesia: Height & Weight Height 5 ft 11 in 01/01/25 10:51 Weight: 89 kg 01/01/25 10:51 Body Mass Index (BMI) 27.3 01/01/25 10:51 Respiratory Assessment Respiratory Assessment - car salesperson: Respiratory Tract Infection Hx - car salesperson Hx Respiratory Tract Infection No 12/19/24 14:17 STOP Sleep Apnea STOP Sleep Apnea - car salesperson: STOP Sleep Apnea - car salesperson Hx Hypertension No 12/19/24 14:17 Hx Sleep Apnea No 12/19/24 14:17 CPAP No 12/19/24 14:17 BIPAP No 12/19/24 14:17 Do you snore loudly (louder No 12/19/24 14:17 than talking or can be heard Do you often feel tired/ No 12/19/24 14:17 fatigued/ sleepy during daytime? Has anyone observed you stop No 12/19/24 14:17 breathing during sleep? STOP Results Negative 12/19/24 14:17 QUESTION #5 FULL TEXT : Do you snore loudly (louder than talking or can be heard through closed doors)? 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 Specify any problems Hx of Preganancy in last 3 N/A 12/19/24 14:17 Months Nurse Filling Out Transfusion DSCHRIBER 12/19/24 14:17 & Questions: Date: 12/19/24 12/19/24 14:17 Time: 14:18 12/19/24 14:17 Patient unable to answer at this time (ie. confused, unrespo /Reproduction History /Reproductive History - car salesperson: /Reproductive Hx- car salesperson Hx Now Gestational Age (in weeks): EDC: Hx Hx Para Hx Section SAB No 12/19/24 14:17 Active Medications Active Medications: Current Medications Generic Name Dose Route Start Last Admin Trade Name Freq PRN Reason Stop Dose Admin Lactated Ringer's 1,000 mls @ 15 mls/hr 01/01/25 11:00 01/01/25 10:58 IV 15 mls/hr .Q48H NANNETTE Administration Cefazolin Sodium 2 gm/ Sodium 110 mls @ 200 mls/hr 01/01/25 11:04 Chloride IV 01/01/25 11:36 X1 ONE PFSH Medical History Tricuspid valve regurgitation Mitral valve regurgitation Autism Cancer History of Mohs micrographic surgery for skin cancer (11/26/24) Chronic constipation Wears hearing aid Wears glasses Anxiety Prostate disease Back pain OCD (obsessive compulsive disorder) Non-smoker History of stress test Intellectual disability Obsessive compulsive disorder Hearing problem History of emotional problems Arthritis Home Medications ?Medication ?Instructions ?Recorded ?Last Taken ?Type sertraline 100 mg tablet 200 mg PO DAILY 11/29/24 08:00 History amitriptyline 25 mg tablet 25 mg PO DAILY 12/05/24 08:00 History famotidine 20 mg tablet 20 mg PO DAILY 12/05/24 Unkn own History hydrocodone-acetaminophen 5-325mg 1 tab PO Q6H PRN PRN pain 12/05/24 Unknown History 5mg-325mg lidocaine HCl 2 % mucosal solution 1 applic mucous mem brane TID PRN 12/05/24 Unknown Rx (Lidocaine Viscous) pain #300 mL bupropion HCl 150 mg 24 hr tablet, 300 mg PO QDAY 12/0401/01/25 08:00 History extended release Allergy/AdvReac Type Severity Reaction Status Date / Time No Known Allergies Allergy Verified 01/01/25 10:42 Family History Other Arthritis Bowel disease Colon cancer Diabetes Heart disease High cholesterol Hypertension Osteoporosis Surgical History History of esophagogastroduodenoscopy (EGD) History of ankle surgery History of tonsillectomy History of colonoscopy History of left knee replacement History of total left hip replacement History of total right hip replacement History of nasal surgery Social History Smoking Status: Never smoker alcohol intake: never substance use type: does not use what type of physical activity do you participate in: walking Review of Systems (Anesthesia) ROS Narrative System reviewed and no additional complaints, except as documented.
--- NOTE | 2025-01-01 11:29 | NURSING ---
right of way supervisor called about pt's case and will come over and talk with pt and pt's family
[2025-01-01] MEDS: Cefazolin 2 GM in 0.9% Normal Saline (100mL Bag) 100 ML IV (11:56)
--- NOTE | 2025-01-01 12:37 | PCM.POST.ANE ---
Anesthesia: Postop Eval I Current Vital Signs Temperature: 97.3 F Pulse Rate: 94 Blood Pressure: 146/93 Respiratory Rate: 20 Pulse Ox: 93 Oxygen Delivery Method: Room Air Assessment Airway patent: Yes Spontaneous unlabored respirations: Yes Mental status: Awake and Calm nausea: No Vomiting: No Anesthesia Complication: No Fluid Hydration Crystalloid volume administer (ml): 700 Total IV fluid infused: 700 Progress Note Anesthesia document: Postop Eval 1 completed: Yes
--- NOTE | 2025-01-01 12:53 | OP.PROVAT_ITS ---
01/01/2025 Gerard Graves Do Re : Upper GI endoscopy procedure for Francisco Mosher Dear [place] This procedure was performed on Wednesday, January 01, 2025. 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 Dilated. - Pre-existing gastric stent, removed. - Erythematous mucosa in the gastric body. - No gross lesions in the entire examined duodenum. - An endoscopically removable PEG placement was successfully completed. Recommendations : - Discharge patient to home. - Resume previous diet. - Continue present medications. My findings are described in the full procedure note, which is enclosed. If I can be of further assistance, please feel free to contact me at . Sincerely, Prashanth Rodriguez DO 01/01/2025 12:53:06 PM This report has been signed electronically.
--- NOTE | 2025-01-01 12:53 | OP.EGD_ITS ---
Patient Name: Francisco Mosher Procedure Date: 01/01/2025 11:39 AM Date of : 1960 Age: 64 Procedure: Upper GI endoscopy Indications: Dysphagia Providers: Prashanth Rodriguez DO Referring MD: Gerard Graves Do Medicines: Monitored Anesthesia Care Patient Profile: This is a 64 year old male. Refer to note in patient chart for documentation of history and physical. Patient has symptoms of chronic dysphagia and dysphagia with both liquids and solids. Complications: No immediate complications. Procedure: Pre-Anesthesia Assessment: - Prior to the procedure, a History and Physical was performed, and patient medications and allergies were reviewed. The patient is competent. The risks and benefits of the procedure and the sedation options and risks were discussed with the patient. All questions were answered and informed consent was obtained. Patient identification and proposed procedure were verified by the physician in the pre-procedure area. Mental Status Examination: alert and oriented. Airway Examination: normal oropharyngeal airway and neck mobility. Respiratory Examination: clear to auscultation. CV Examination: normal. Prophylactic Antibiotics: The patient does not require prophylactic antibiotics. Prior Anticoagulants: The patient has taken no anticoagulant or antiplatelet agents except for NSAID medication. ASA Grade Assessment: II - A patient with mild systemic disease. After reviewing the risks and benefits, the patient was deemed in satisfactory condition to undergo the procedure. The anesthesia plan was to use monitored anesthesia care (MAC). Immediately prior to administration of medications, the patient was re-assessed for adequacy to receive sedatives. The heart rate, respiratory rate, oxygen saturations, blood pressure, adequacy of pulmonary ventilation, and response to care were monitored throughout the procedure. The physical status of the patient was re-assessed after the procedure. After obtaining informed consent, the endoscope was passed under direct vision. Throughout the procedure, the patient's blood pressure, pulse, and oxygen saturations were monitored continuously. The gastroscope was introduced through the mouth, and advanced to the second part of duodenum. The upper GI endoscopy was accomplished without difficulty. The patient tolerated the procedure well. Scope In: 12:02:44 PM Scope Out: 12:27:51 PM Total Procedure Duration Time 0 hours 25 minutes 7 seconds Findings: A large, fungating mass with bleeding and stigmata of recent bleeding was found in the lower third of the esophagus, 35 cm from the incisors. The mass was completely obstructing and circumferential. A TTS dilator was passed through the scope. Dilation with a 15-16.5-18 mm balloon dilator was performed to 16 mm. The dilation site was examined and showed mild improvement in luminal narrowing. A metal stent was found in the stomach. Stent removal was accomplished with a snare. Verification of patient identification for the specimen was done. Localized moderately erythematous mucosa without bleeding was found in the gastric body. The patient was placed in the supine position for PEG placement. The stomach was insufflated to appose gastric and abdominal garcia. A site was located in the body of the stomach with excellent transillumination for placement. The abdominal wall was marked and prepped in a sterile manner. The area was anesthetized with 1 mL of 0.5% lidocaine. The trocar needle was introduced through the abdominal wall and into the stomach under direct endoscopic view. A snare was introduced through the endoscope and opened in the gastric lumen. The guide wire was passed through the trocar and into the open snare. The snare was closed around the guide wire. The endoscope and snare were removed, pulling the wire out through the mouth. A skin incision was made at the site of needle insertion. The endoscopically removable 20 Fr EndoVive Safety gastrostomy tube was lubricated. The G-tube was tied to the guide wire and pulled through the mouth and into the stomach. The trocar needle was removed, and the gastrostomy tube was pulled out from the stomach through the skin. The external bumper was attached to the gastrostomy tube, and the tube was cut to remove the guide wire. The final position of the gastrostomy tube was confirmed by relook endoscopy, and skin marking noted to be 4 cm at the external bumper. The final tension and compression of the abdominal wall by the PEG tube and external bumper were checked and revealed that the bumper was loose and lightly touching the skin. The feeding tube was capped, and the tube site cleaned and dressed. No gross lesions were noted in the entire examined duodenum. 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 Dilated. - Pre-existing gastric stent, removed. - Erythematous mucosa in the gastric body. - No gross lesions in the entire examined duodenum. - An endoscopically removable PEG placement was successfully completed. Recommendation: - Discharge patient to home. - Resume previous diet. - Continue present medications. Procedure Code(s): --- Professional --- 59559, Esophagogastroduodenoscopy, flexible, transoral; with directed placement of percutaneous gastrostomy tube 36356, 59,51, Esophagogastroduodenoscopy, flexible, transoral; with removal of foreign body(s) 49327, Esophagogastroduodenoscopy, flexible, transoral; with transendoscopic balloon dilation of esophagus (less than 30 mm diameter) CPT copyright 2021 [employer]. All rights reserved. The codes documented in this report are preliminary and upon senior talent acquisition specialist review may be revised to meet current compliance requirements. Prashanth Rodriguez DO 01/01/2025 12:53:06 PM This report has been signed electronically. Number of Addenda: 0 Note Initiated On: 01/01/2025 11:39 AM
== END 2025-01-01 14:03 | disposition home or self-care (01) ==
LOC: EN 10:21 → AC 10:23
PROVIDERS: PCP Student in an Organized Health Care Education/Training Program; Referring Provider Student in an Organized Health Care Education/Training Program; Visit Provider Internal Medicine Gastroenterology
PROC: 0DJ08ZZ Inspection of Upper Intestinal Tract, Via Natural or Artificial Opening Endoscopic (ICD-10-PCS; CPT 43235; principal; 2025-01-01 11:25)
DX: C15.5 Malignant neoplasm of lower third of esophagus (principal); F84.0 Autistic disorder; F41.9 Anxiety disorder, unspecified; F42.9 Obsessive-compulsive disorder, unspecified; Z79.899 Other long term (current) drug therapy
CPT/HCPCS: 43249; 43246; 43247; 97802; J2405

== ENCOUNTER 2025-01-07 13:30 | Outpatient (RCR) | payer OTHER, SELFPAY | END 2025-02-03 23:59 | LOC: NS 13:30 | PROVIDERS: PCP Student in an Organized Health Care Education/Training Program; Visit Provider Student in an Organized Health Care Education/Training Program | DX: Z71.3 Dietary counseling and surveillance (principal); C15.9 Malignant neoplasm of esophagus, unspecified; R63.4 Abnormal weight loss ==

== ENCOUNTER 2025-01-10 05:58 | Day surgery (SDC) | payer OTHER, SELFPAY ==
--- NOTE | 2025-01-04 16:13 | PAT.ANE_ITS ---
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 When Was Last Pacemaker Check QUESTION #4 FULL TEXT: You/Your Family Experience fever (hyperthermia) with Anesthesia Last Oral Intake Last Oral intake: Last Oral Intake NPO since Meds taken in AM with sips of water? Meds patient instructed to take am of surgery PONV PONV - mission assessment specialist: PONV - mission assessment specialist Female No 01/04/25 08:11 HX of Motion Sickness No 01/04/25 08:11 HX of N/V After Surgery No 01/04/25 08:11 Non-Smoker Yes 01/04/25 08:11 Duration of Surgery greater No 01/04/25 08:11 than 60 minutes Number of Risk Factors 1 01/04/25 08:11 PONV Score Low Risk 01/04/25 08:11 Height & Weight Height & Weight: Anesthesia: Height & Weight Height 5 ft 11 in 01/03/25 09:43 Respiratory Assessment Respiratory Assessment - mission assessment specialist: Respiratory Tract Infection Hx - mission assessment specialist Hx Respiratory Tract Infection No 01/04/25 08:11 STOP Sleep Apnea STOP Sleep Apnea - mission assessment specialist: STOP Sleep Apnea - mission assessment specialist Hx Hypertension No 01/04/25 08:11 Hx Sleep Apnea No 01/04/25 08:11 CPAP No 01/04/25 08:11 BIPAP No 01/04/25 08:11 Do you snore loudly (louder No 01/04/25 08:11 than talking or can be heard Do you often feel tired/ No 01/04/25 08:11 fatigued/ sleepy during daytime? Has anyone observed you stop No 01/04/25 08:11 breathing during sleep? STOP Results Negative 01/04/25 08:11 QUESTION #5 FULL TEXT : Do you snore loudly (louder than talking or can be heard through closed doors)? 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 Specify any problems Hx of Preganancy in last 3 N/A 01/04/25 08:11 Months Nurse Filling Out Transfusion EHMAN 01/04/25 08:11 & Questions: Date: 01/04/25 01/04/25 08:11 Time: 08:14 01/04/25 08:11 Patient unable to answer at this time (ie. confused, unrespo /Reproduction History /Reproductive History - mission assessment specialist: /Reproductive Hx- mission assessment specialist Hx Now Gestational Age (in weeks): EDC: Hx Hx Para Hx Section SAB No 12/19/24 14:17 PFSH Medical History Tricuspid valve regurgitation Mitral valve regurgitation Autism Cancer History of Mohs micrographic surgery for skin cancer (11/26/24) Chronic constipation Wears hearing aid Wears glasses Anxiety Prostate disease Back pain OCD (obsessive compulsive disorder) Non-smoker History of stress test Intellectual disability Obsessive compulsive disorder Hearing problem History of emotional problems Arthritis Home Medications ?Medication ?Instructions ?Recorded ?Last Taken ?Type sertraline 100 mg tablet 200 mg PO DAILY 11/29/24 08:00 History amitriptyline 25 mg tablet 25 mg PO DAILY 12/05/24 08:00 History famotidine 20 mg tablet 20 mg PO DAILY PRN gastric r eflux 12/05/24 Unknown History hydrocodone-acetaminophen 5-325mg 1 tab PO Q6H PRN PRN pain 12/05/24 Unknown History 5mg-325mg lidocaine HCl 2 % mucosal solution 1 applic mucous mem brane TID PRN 12/05/24 Unknown Rx (Lidocaine Viscous) pain #300 mL bupropion HCl 150 mg 24 hr tablet, 300 mg PO QDAY 12/0401/01/25 08:00 History extended release oxycodone 5 mg/5 mL oral solution 10 mg (10 mL) PO Q6H PRN pain 7 01/01/25 Unknown Rx days #250 mL Allergy/AdvReac Type Severity Reaction Status Date / Time No Known Allergies Allergy Verified 01/04/25 08:09 Family History Other Arthritis Bowel disease Colon cancer Diabetes Heart disease High cholesterol Hypertension Osteoporosis Surgical History (Updated 01/04/25 @ 08:12 by Mena Valentine) History of right knee joint replacement History of esophagogastroduodenoscopy (EGD) History of ankle surgery History of tonsillectomy History of colonoscopy History of left knee replacement History of total left hip replacement History of total right hip replacement History of nasal surgery Social History Smoking Status: Never smoker alcohol intake: never substance use type: does not use what type of physical activity do you participate in: walking Audit: Pertinent Findings Pertinent Findings EKG Perinent findings: Reread previous EKG from December 01, [address] Brooks. Sinus tachycardia at 106 bpm. Right bundle branch block. Stress test pertinent findings: February 24, 2023. Negative for ischemia or infarct. LVEF is 69% with normal wall motion. Recommendation Anesthesia Recommendation Anesthesia recommendation: OPTIMIZED for anesthesia
[2025-01-10] VITALS (7 sets, daily range): BP systolic 91–112; BP diastolic 61–87; PULSE 68–89; RESP 16; TEMP 36.2–36.6; O2SAT 94–97; BMI 27.3
--- OUTSIDE RECORDS SUMMARY | 2025-01-10 06:18 | XMS RPT_ITS | CCD ---
Author Organization [facility] Care Team Providers Care Milieu Manager Name Role Phone VALDO ANN Unavailable Unavail able VALDO ANN Unavailable Unavail able ANNA VEGA DO Primary Care Physician [phone] Admitting Unavailable JAY [...] Unavailable GARY PIERCE, ANNA Primary Care Unavailable GARY PIERCE, ANNA Attending Unavailable GARY PIERCE, ANNA Primary Care Unavailable JAY JAY LI MD Attending Unavailable ANNA VEGA DO Primary Care Unavailable ANNA VEGA DO Attending Unavailable GARY PIERCE, ANNA Primary Care Unavailable HALCAREY PIERCE, ANNA Attending Unavailable HALCAREY PIERCE, ANNA Primary Care Unavailable HALKO , ANNA Attending Unavailable HALKO DO, ANNA Primary Care Unavailable PETAR ABRAMS Attending Unavailable HALKO DO, ANNA Primary Care Unavailable HALKO DO, ANNA Attending Unavailable HALKO DO, ANNA Primary Care Unavailable HALKO DO, ANNA Primary Care Unavailable AUDRA DIAZ Attending Unavailable HALKO DO, ANNA Primary Care Unavailable HALKO DO, ANNA Attending Unavailable HALKO DO, ANNA Primary Care Unavailable FELIZ ALEXANDER CNP Attending Unavailable HALKO DO, ANNA Attending Unavailable HALKO DO, ANNA Primary Care Unavailable HALKO DO, ANNA Attending Unavailable HALKO DO, ANNA Primary Care Unavailable Halko , Anna Primary Care Provider [phone] HALKO DO, ANNA Primary Care Unavailable HALKO DO, ANNA Attending Unavailable HALKO DO, ANNA Attending Unavailable HALKO DO, ANNA Primary Care Unavailable HALKO DO, ANNA Attending Unavailable HALKO DO, ANNA Primary Care Unavailable HALKO, ANNA Primary Care Unavailable MARCELINO BARAHONA Attending Unavailable Halko, Anna Primary Care Unavailable Halko, Anna Referring Unavailable Nadege Baltazar Attending Unavailable Sebastián Hsu Attending Unavailable Halko, Anna Primary Care Unavailable FELICIANO DOMINGO Referring Unavailable Sebastián Hsu Referring Unavailable Halko, Anna Primary Care Unavailable Devan Logan Attending Unavailable Car Woodson Consulting Unavailable Halko, Anna Primary Care Unavailable Halko, Anna Referring Unavailable FriendCar Attending Unavailable Halko, Anna Primary Care Unavailable Devan Logan Referring Unavailable Odalis, Olga Attending Unavailable Halko, Anna Primary Care Unavailable Treva Tyson Attending Unavailable Sebastián Hsu Attending Unavailable Halko, Anna Primary Care Unavailable Halko, Anna Primary Care Unavailable Paul Cárdenas Attending Unavailable FriendCar Consulting Unavailable Halko, Anna Primary Care Unavailable Halko, Anna Referring Unavailable Car Woodson Attending Unavailable Halko, Anna Primary Care Unavailable Halko, Anna Referring Unavailable Car Woodson Attending Unavailable Halko, Anna Primary Care Unavailable Paul Cárdenas Attending Unavailable Halko, Anna Primary Care Unavailable Devan Logan Attending Unavailable Halko, Anna Referring Unavailable Halko, Anna Primary Care Unavailable Paul Cárdenas Attending Unavailable Halko, Anna Primary Care Unavailable Halko, Anna Referring Unavailable Car Woodson Attending Unavailable Odalis, Olga Attending Unavailable Halko, Anna Primary Care Unavailable Sebastián Hsu Referring Unavailable Sebastián Hsu Attending Unavailable Halko, Anna Primary Care Unavailable Halko, Anna Primary Care Unavailable Denilson Harris Attending Unavailable Denise Garcia Referring Unavailable Halko, Anna Primary Care Unavailable Min Alvarado Referring Unavailable Min Alvarado Attending Unavailable Halko, Anna Primary Care Unavailable Paul Cárdenas Attending Unavailable Halko, Anna Primary Care Unavailable Halko, Anna Referring Unavailable Omayra Lyle Attending Unavailable Medications Current Medications Medication Drug Class(es) Dates Sig (Normalized) Sig (Original) acetaminophen 500 mg oral capsule (14 sources) Start: 09-06-2024 take 2 capsules by [...] 5 Refill(s), 07/05/23 5:15:00 PM EST, [facility]acy: [id number], 178, cm, 01/06/23 16:19:00 EDT, Height, [...] 6 HOURS NEEDED January 23, 2014 2:07pm take 2 tablets by mo uth every six hours as needed for pain acetaminophen (Tylenol) 500 MG tablet Take 1,000 mg by mouth every 6 hours as needed for mild pain (1-3). 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, cm, 12/03/24 13:20:00 EDT, Height, 95.4, kg, 12/03/24 13:20:00 EDT, Dosing Weight Start Date: 12/05/24 Stop Date: 01/04/25 Status: Ordered Quantity: 120.0 Unit: tab(s) Repeat number: 1 Indications: Malignant neoplasm of esophagus, unspecified; Start: 01-23-2014 take 1 tablet by jonah th every six hours as needed Hydrocodone-Acetaminophen (Vicodin 5-300 Mg Tablet) 1 EACH tablet Active 1 - 2 TABLET PO EVERY 6 HOURS NEEDED January 23, 2014 2:07pm amitriptyline hydrochloride 25 mg oral tablet (5 sources) Tricyclic Antidepressant Start: 11-02-2024 amitriptyline 25 mg oral tablet Dose : 25 mg = 1 tab(s), Oral, qHS, # 30 tab(s), 1 Refill(s), Pharmacy: [id number], 182.5, cm, 11/02/24 9:56:00 EDT, Height, kg, 11/02/24 9:56:00 EDT, Dosing Weight Start Date: 11/02/24 Status: Ordered Quantity: 30.0 Unit: tab(s) Repeat number: 2 amoxicillin 875 mg / clavulanate 125 mg oral tablet (1 source) Penicillin-class Antibacterial Start: 01-23-2014 take 875 mg by mouth twice daily Amoxicillin-Pot Clavulanate Active 875 MG PO TWICE A DAY January 23, 2014 2:07pm Bisacodyl (2 sources) Stimulant Laxative Start: 12-03-2024 take 400 mg by mouth twice daily Dulcolax 1200 mg/15 mL oral liquid 400 mg Dose = 5 mL, Oral, BID, # 354 mL, 0 Refill(s), Pharmacy: [id number], 182.5, cm, 12/03/24 13:20:00 EDT, Height, kg, 12/03/24 13:20:00 EDT, Dosing Weight Start Date: 12/03/24 Status: Ordered Quantity: 354.0 Unit: mL Repeat number: 1 24 hr buPROPion hydrochloride 300 mg extended release oral tablet (5 sources) Aminoketone Start: 09-26-2024 End: 03-25-2025 take 1 tablet by mouth every hour, then take 1 tablet by mouth once daily buPROPion 300 mg/24 hours (XL) oral tablet, extended release Dose : 300 mg = 1 tab(s), Oral, qDay, # 90 tab(s), 1 Refill(s), Pharmacy: [id number], 182.5, cm, 09/26/24 11:21:00 EDT, Height, kg, 09/26/24 11:21:00 EDT, Dosing Weight Start Date: 09/26/24 Stop Date: 03/25/25 Status: Ordered Quantity: 90.0 Unit: tab(s) Repeat number: 2 take 1 tablet by mouth once jez y buPROPion XL (Wellbutrin XL) 300 MG 24 hr tablet Take 300 mg by mouth daily. Do not crush, chew, or split. Active CeraVe itch Relief 1% topical lotion (7 sources) Start: 07-18-2023 End: 01-14-2024 apply 1 dose topically once as needed CeraVe itch Relief 1% topical lotion Dose = 1 daija, Topical, 5x/Day, PRN as needed for itching, X 30 day(s), # 240 mL, 5 Refill(s), Pharmacy: [id number], 178, cm, 07/18/23 17:05:00 EST, Height, kg, 07/18/23 17:05:00 EST, Dosing Weight Start Date: 07/18/23 Stop Date: 01/14/24 Status: Ordered Start: 05-04-2023 End: 10-31-2023 apply 1 dose topically once as needed CeraVe itch Relief 1% topical lotion Dose = 1 daija, Topical, 5x/Day, PRN as needed for itching, X 30 day(s), # 240 mL, 5 Refill(s), Pharmacy: [id number], 178, cm, 05/04/23 16:27:00 EST, Height, [...] Ordered docusate sodium 100 mg oral tablet (2 sources) Start: 04-13-2021 End: 10-10-2021 docusate sodium 100 mg oral tablet Dose : 100 mg = 1 tab(s), Oral, qDay, # 90 tab(s), 1 Refill(s), Pharmacy: [id number], 178, cm, 04/13/21 16:23:00 EST, Height, kg, 04/13/21 16:23:00 EST, Dosing Weight Start Date: 04/13/21 Stop Date: 10/10/21 Status: Ordered docusate sodium (Colace) 50 MG capsule Take by mouth. 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, cm, 09/26/24 11:21:00 [...] 11/16/2023, # 180 cap(s), 2 Refill(s), Pharmacy: [id number], Cervical radiculopathy, 178, cm, 11/16/23 10:41:00 EDT, Height, 102.4, kg, 11/16/23 10:41:00 EDT, Dosing Weight Start Date: 11/16/23 Stop Date: 02/14/24 Status: Ordered hydrOXYzine hydrochloride 10 mg oral tablet (10 sources) Antihistamine Start: 03-07-2024 End: 03-05-2025 hydrOXYzine hydrochloride 10 mg oral tablet Dose : 20 mg = 2 tab(s), Oral, TID, TAKE 2 TABLET BY MOUTH THREE TIMES A DAY NEEDED FOR ANXIETY, X 30 day(s), # 180 tab(s), 5 Refill(s), 03/05/25 11:03:00 AM EDT, Pharmacy: [id number], 182.5, cm, 09/06/24 10:23:00 EDT, Height, [...] 0 Refill(s), 02/15/24 3:52:00 PM EDT, Pharmacy: [id number], 70.1, cm, 12/29/23 13:25:00 EDT, Height, [...] 2 Refill(s), 08/02/23 4:44:00 PM EST, Pharmacy: [id number], 178, cm, 05/04/23 16:27:00 EST, Height, kg, 05/04/23 16:27:00 EST, Dosing Weight Start Date: 05/04/23 Stop Date: 08/02/23 Status: Ordered take 2 tablets by [facility] three times daily hydrOXYzine HCl (Atarax) 10 MG tablet Take 20 mg by mouth 3 times daily. Active ibuprofen 20 mg/ml oral suspension (2 sources) Nonsteroidal Anti-inflammatory Drug Start: 12-03-2024 take 1 mg by mouth every six hours ibuprofen 100 mg/5 mL oral suspension mg = mL, Oral, q6hr, 0 Refill(s) Start Date: 12/03/24 Status: Ordered Repeat number: 1 lidocaine hydrochloride 20 mg/ml mucous membrane topical solution (1 source) Antiarrhythmic, Amide Local Anesthetic lidocaine (Xylocaine) 2 % solution if needed for mild pain (1-3). Active Lidocaine Viscous 2% mucous membrane solution (1 source) Start: 12-05-2024 Lidocaine Viscous 2% mucous membrane solution 0.1 gram(s) Dose = 5 mL, Topical, QID, PRN for severe thorat pain, # 100 mL, 0 Refill(s), Pharmacy: [id number], 182.5, cm, 12/03/24 13:20:00 EDT, Height, kg, 12/03/24 13:20:00 EDT, Dosing Weight Start Date: 12/05/24 Status: Ordered Quantity: 100.0 Unit: mL Repeat number: 1 meloxicam 15 mg oral tablet (9 sources) Nonsteroidal Anti-inflammatory Drug Start: 01-04-2024 End: 03-05-2025 meloxicam 15 mg oral tablet Dose : 15 mg = 1 tab(s), Oral, qDay, # 90 tab(s), 1 Refill(s), [facility]: [id number], 182.5, cm, 09/06/24 10:23:00 EDT, Height, kg, 09/06/24 10:23:00 EDT, Dosing Weight Start Date: 09/06/24 Stop Date: 03/05/25 Status: Ordered Quantity: 90.0 Unit: tab(s) Repeat number: 2 Start: 10-07-2023 meloxicam 15 m g oral tablet Dose : 15 mg = 1 tab(s), Oral, qDay, # 30 tab(s), 0 Refill(s), Pharmacy: [id number], 178, cm, 11/16/23 10:41:00 EDT, Height, kg, 11/16/23 10:41:00 EDT, Dosing Weight Start Date: 12/14/23 Status: Ordered methylPREDNISolone 4 mg oral tablet (1 source) Corticosteroid Start: 06-28-2023 End: 01-29-2024 Medrol Dosepak 4 mg oral tablet Per [...] 1 Refill(s), 02/13/24 1:06:00 PM EDT, Pharmacy: [id number], 178, cm, 08/17/23 11:42:00 EDT, Height, kg, 08/17/23 11:42:00 EDT, Dosing Weight Start Date: 08/17/23 Stop Date: 02/13/24 Status: Ordered ondansetron 4 mg disintegrating oral tablet (1 source) Serotonin-3 Receptor Antagonist Start: 12-03-2024 End: 12-07-2024 ondansetron 4 mg oral tablet, disintegrating Dose : 4 mg = 1 tab(s), Oral, q6h, PRN Nausea/Vomiting, X 4 day(s), # 12 tab(s), 0 Refill(s), 12/07/24 4:31:00 AM EDT Start Date: 12/03/24 Stop Date: 12/07/24 Status: Ordered Quantity: 12.0 Unit: tab(s) Repeat number: 1 12 hr orphenadrine citrate 100 mg extended [...] pantoprazole 40 mg delayed release oral tablet (4 sources) Proton Pump Inhibitor Start: 12-06-2024 pantoprazole 40 mg oral enteric coated tablet Dose : 40 mg = 1 tab(s), Oral, BIDAC, # 60 tab(s), 1 Refill(s), Pharmacy: [id number], 182.5, cm, 12/06/24 8:44:00 EDT, Height, kg, 12/06/24 8:44:00 EDT, Dosing Weight Start Date: 12/06/24 Status: Ordered Quantity: 60.0 Unit: tab(s) Repeat number: 2 Start: 10-08-2024 pantoprazole 4 0 mg oral enteric coated tablet Dose : 40 mg = 1 tab(s), Oral, BIDAC, # 60 tab(s), 1 Refill(s), Pharmacy: [id number], 182.5, cm, 10/04/24 15:30:00 EDT, Height, kg, 10/04/24 15:30:00 EDT, Dosing Weight Start Date: 10/08/24 Status: Ordered Quantity: 60.0 Unit: tab(s) Repeat number: 2 polyethylene glycol 3350 28217 mg powder for oral solution (13 sources) Osmotic Laxative Start: 12-03-2024 take 17 doses by mouth twice daily MiraLax oral powder for reconstitution Dose : 17 gram(s) =, Oral, BID, # 238 gram(s), 0 Refill(s) Start Date: 12/03/24 Status: Ordered Quantity: 238.0 Unit: g Repeat number: 1 Start: 09-23-2023 take 17 doses by jonah th once daily as needed MiraLax oral powder for reconstitution Dose : 17 gram(s) =, Oral, qDay, PRN for hard stool, # 510 gram(s), 1 Refill(s), Pharmacy: [id number], 178, cm, 09/23/23 10:21:00 EDT, Height, kg, 09/23/23 10:21:00 EDT, Dosing Weight Start Date: 09/23/23 Status: Ordered Start: 07-18-2023 take 17 doses by [facility] once daily as needed MiraLax oral powder for reconstitution Dose : 17 gram(s) =, Oral, qDay, PRN for hard stool, # 510 gram(s), 1 Refill(s), Pharmacy: [id number], 178, cm, 07/18/23 17:05:00 EST, Height, kg, 07/18/23 17:05:00 EST, Dosing Weight Start Date: 07/18/23 Status: Ordered Start: 05-04-2023 take 17 doses by [facility] once daily as needed MiraLax oral powder for reconstitution Dose : 17 gram(s) =, Oral, qDay, PRN for hard stool, # 510 gram(s), 1 Refill(s), [facility]: [id number], 178, cm, 05/04/23 16:27:00 EST, Height, kg, 05/04/23 16:27:00 EST, Dosing Weight Start Date: 05/04/23 Status: Ordered Start: 01-06-2023 take 17 doses by [facility] twice daily MiraLax oral powder for reconstitution Dose : 17 gram(s) =, Oral, BID, # 510 gram(s), 1 Refill(s), Pharmacy: [id number], 178, cm, 01/06/23 16:19:00 EDT, Height, kg, 01/06/23 16:19:00 EDT, Dosing Weight Start Date: 01/06/23 Status: Ordered sennosides, mcfp 8.6 mg oral tablet (7 sources) Start: 09-06-2024 senna (sennosi theodore) 8.6 mg oral tablet Dose : 8.6 mg = 1 tab(s), Oral, qDay, PRN for constipation, # 100 tab(s), 0 Refill(s), Pharmacy: [id number], 182.5, cm, 12/03/24 13:20:00 EDT, Height, kg, 12/03/24 13:20:00 EDT, Dosing Weight Start Date: 12/03/24 Status: Ordered Quantity: 100.0 Unit: tab(s) Repeat number: 1 take 2 tablets by [facility] every twenty-four hours as needed for constipation sennosides (Senokot) 8.6 MG tablet Take 2 tablets by mouth Daily as needed for constipation. Active sertraline 100 mg oral tablet (16 sources) Serotonin Reuptake Inhibitor Start: 10-04-2024 take [...] Ordered tamsulosin hydrochloride 0.4 mg oral capsule (17 sources) alpha-Adrenergic Sandra Start: 01-04-2024 End: 03-05-2025 tamsulosin 0.4 mg oral capsule Dose : 0.8 mg = 2 cap(s), Oral, qDay, new dose, # 180 cap(s), 1 Refill(s), Pharmacy: [id number], 182.5, cm, 09/06/24 10:23:00 EDT, Height, kg, 09/06/24 10:23:00 EDT, Dosing Weight Start Date: 09/06/24 Stop Date: 03/05/25 Status: Ordered Quantity: 180.0 Unit: cap(s) Repeat number: 2 Start: 04-04-2023 End: 12-19-2023 tamsulosin 0.4 mg oral capsu le Dose : 0.8 mg = 2 cap(s), Oral, qDay, new dose, # 180 cap(s), 1 Refill(s), Pharmacy: [id number], 178, cm, 05/04/23 16:27:00 EST, Height, kg, 05/04/23 16:27:00 EST, Dosing Weight Start Date: 06/22/23 Stop Date: 12/19/23 Status: Ordered take 1 capsule by [facility] once daily tamsulosin (Flomax) 0.4 MG 24 hr capsule Take 0.8 mg by mouth daily. Active turmeric extract 500 mg oral capsule (16 [...] qDay, # 90 cap(s), 1 Refill(s), Pharmacy: [id number], 178, cm, 10/07/22 16:16:00 EDT, Height, kg, 10/07/22 16:16:00 EDT, Dosing Weight Start Date: 10/07/22 Status: Ordered Start: 04-13-2021 End: 10-10-2021 venlafaxine 75 mg oral capsu le, extended release Dose : 75 mg = 1 cap(s), Oral, qDay, # 90 cap(s), 1 Refill(s), Pharmacy: [id number], 178, cm, 04/13/21 16:23:00 EST, Height, [...] food, # 5 tab(s), 0 Refill(s), Pharmacy: [id number], 178, cm, 07/01/23 13:51:00 EST, Height, kg, 07/01/23 13:51:00 EST, Dosing Weight Start Date: 06/30/23 Stop Date: 07/05/23 Status: Ordered Problems Active Problems Problem Classification Problem Date Documented Da te Episodic/Chronic Abdominal pain (2 sources) Epigastric pain; Translations: [Epigastric pain] Onset: 12-03-2024 Episodic Anxiety disorders (20 sources) Anxiety; Translations: [Obsessive-compulsive disorder] Onset: 07-31-2024 02-13-2019 Chronic Cancer of esophagus (4 sources) Malignant neoplasm of esophagus, unspecified; Translations: [Malignant neoplasm of lower third of esophagus] Onset: 12-12-2024 Chronic Conduction disorders (15 sources) 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 Developmental disorders (1 source) Unspecified intellectual disabilities; Translations: [Unspecified intellectual disabilities] Onset: 10-23-2024 Chronic Diabetes mellitus without complication (20 sources) Hyperglycemia 02-13-2019 Episodic Disorders of lipid metabolism (4 sources) Hyperlipidemia 05-25-2024 Chronic Disorders usually diagnosed in infancy, childhood, or adolescence (15 sources) Autism spectrum disorder 01-06-2023 Chronic Headache; including migraine (1 source) Headache; Translations: [Headache, unspecified] Episodic Heart valve disorders (20 sources) Mitral valve regurgitation; Translations: [Tricuspid valve regurgitation] 02-13-2019 Chronic Hyperplasia of prostate (20 sources) Benign prostatic hyperplasia; Translations: [Benign prostatic hypertrophy without outflow obstruction] 02-13-2019 Chronic Malaise and fatigue (1 source) Asthenia; Translations: [Weakness] Episodic Mood disorders (20 sources) Major depression in remission 08-25-2020 Chronic Mycoses (19 sources) Onychomycosis 10-23-2021 Episodic Osteoarthritis (20 sources) Osteoarthritis; Translations: [Osteoarthritis of knee] Onset: 07-27-2024 02-15-2019 Chronic Other aftercare (2 sources) Follow-up orthopedic assessment; Translations: [Aftercare following joint replacement surgery] Chronic Other aftercare (8 sources) Post-discharge follow-up 10-07-2023 Episodic Other aftercare (1 source) Encounter for adjustment and management of vascular access device; Translations: [Encounter for adjustment and management of vascular access device] Onset: 01-04-2025 Episodic Other bone disease and musculoskeletal deformities (20 sources) Hypertrophy of bone 02-13-2019 Episodic Other bone disease and musculoskeletal deformities (18 sources) Cervical somatic dysfunction 05-07-2022 Episodic Other bone disease and musculoskeletal deformities (18 sources) Somatic dysfunction of rib 05-07-2022 Episodic Other bone disease and musculoskeletal deformities (8 sources) Somatic dysfunction of pelvic region 11-16-2023 [...] musculoskeletal system] Episodic Other connective tissue disease (12 sources) Muscle weakness of upper limb 07-01-2023 [...] Episodic Other ear and sense organ disorders (20 sources) Does use hearing aid 08-06-2019 Episodic Other gastrointestinal disorders (20 sources) Constipation 08-06-2019 Episodic Other gastrointestinal disorders (1 source) Esophageal dysphagia; Translations: [Other dysphagia] 12-11-2024 Episodic Other gastrointestinal disorders (2 sources) Dysphagia, unspecified; Translations: [Dysphagia, unspecified] Onset: 01-01-2025 Episodic Other gastrointestinal disorders (2 sources) Heartburn; Translations: [Heartburn] Onset: 01-01-2025 Episodic Other infections; including parasitic (20 sources) History of herpes zoster 02-06-2020 Episodic Other injuries and conditions due to external causes (3 sources) At low risk for fall 01-29-2022 Episodic Other lower respiratory disease (1 source) Shortness of breath; Translations: [Shortness of breath] Onset: 12-06-2024 Episodic Other nervous system disorders (11 sources) 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 Other nervous [...] knee joint] Episodic Other non-traumatic joint disorders (18 sources) Knee pain 05-07-2022 Episodic Other non-traumatic [...] Chronic Other nutritional; endocrine; and metabolic disorders (8 sources) Obesity 10-07-2023 Chronic Other nutritional; endocrine; and metabolic disorders (20 sources) Developmental delay 08-25-2020 Episodic Other nutritional; [...] [Electrocardiogram abnormal] 08-12-2020 Episodic Other skin disorders (13 sources) Xeroderma 05-04-2023 Episodic Residual codes; unclassified (20 sources) Immunization due 02-06-2020 Episodic Screening and history of mental health and substance abuse codes (16 sources) Tobacco use and exposure - finding 08-05-2022 Chronic Spondylosis; intervertebral disc disorders; other back problems (13 sources) Degeneration of cervical intervertebral disc; Translations: [...] status 08-06-2019 Unclassified (1 source) medical management Unclassified (2 sources) New Patient; Translations: [New Patient] Onset: 12-11-2024 Viral infection (20 sources) Herpes zoster 12-03-2019 Episodic Past or Other Problems Problem Classification Problem Date Documented Da te Episodic/Chronic Other non-epithelial cancer of skin (1 source) 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, [address] Albumin/Globulin [Mass ratio] 1.2 {ratio} Normal 0.9-2.4 [facility] Comment on above: Performed By: #### [id number] #### [facility] [address] [place], [address] ALK PHOS 83 U/L Normal 40-129 [facility] Comment on above: Performed By: #### [id number] #### [facility] [address] [place], [address] ALT [Catalytic activity/Vol] 10 U/L Normal <=46 [facility] Comment on above: Performed By: #### [id number] #### [facility] [address] [place], [address] AST [Catalytic activity/Vol] 19 U/L Normal <=37 [facility] Comment on above: Performed By: #### [id number] #### [facility] [address] [place], [address] Bilirubin [Mass/Vol] 0.30 mg/dL Normal 0.00-1.30 [facility] Comment on above: Performed By: #### [id number] #### [facility] [address] [place], [address] BUN/CRE 14.6 RATIO Normal 10-20 [facility] Comment on above: Performed By: #### [id number] #### [facility] [address] [place], [address] Calcium [Mass/Vol] 9.3 mg/dL Normal 7.6-11.0 [facility] Comment on above: Performed By: #### [id number] #### [facility] [address] [place], [address] Chloride [Moles/Vol] 101 mmol/L Normal 98-108 [facility] Comment on above: Performed By: #### [id number] #### [facility] [address] [place], [address] CO2 [Moles/Vol] 25.7 mmol/L Normal 21.0-32.0 [facility] Comment on above: Performed By: #### [id number] #### [facility] [address] [place], [place], [address] Creatinine [Mass/Vol] 0.79 mg/dL Normal 0.70-1.20 [facility] Comment on above: Performed By: #### L 500.4050 #### [facility] [address] [place], [address] GAP 12 Normal 5-15 [facility] Comment on above: Performed By: #### L 500.4050 #### [facility] [address] [place], [address] GFR/1.73 sq M.predicted among non-blacks MDRD (S/P/Bld) [Vol rate/Area] 99 mL/min/{1.73_m2} Normal >60 [facility] Comment on above: Result Comment: mL/m in/1.73m2 CKD-EPI Creatinine Equation (2020) Performed By: #### L 500.4050 #### [facility] [address] [place], [address] Globulin (S) [Mass/Vol] 3.3 g/dL Normal 2.2-4.2 [facility] Comment on above: Performed By: #### L [id number] #### [facility] [address] [place], [address] Glucose [Mass/Vol] 97 mg/dL Normal 70-99 [facility] Comment on above: Performed By: #### L [id number] #### [facility] [address] [place], [address] Potassium [Moles/Vol] 4.0 mmol/L Normal 3.3-5.1 [facility] Comment on above: Performed By: #### L 500.4050 #### [facility] [address] [place], [address] Sodium [Moles/Vol] 138 mmol/L Normal 133-145 [facility] Comment on above: Performed By: #### L 500.4050 #### [facility] [address] [place], [address] T PROT 7.4 g/dL Normal 5.9-8.4 [facility] Comment on above: Performed By: #### L [id number] #### [facility] [address] [place], [address] Urea nitrogen [Mass/Vol] 12 mg/dL Normal - [facility] Comment on above: Performed By: #### L 500.4050 #### [facility] [address] [place], [address] Oncology Visit Reporton Oncology Visit Report [facility] [address] [place] [address] OFFICE VISIT Date of Service: 01/07/25 1333 MR#: [id number] Acct: [id number] Name: CYNDEE HAWKINS Tomi Rep #: [id number] : 1960 From: Devan Logan MD Age/Sex: 64/M Location: [facility] [place] Status: Signed HPI Subjective Date of Service 01/07/25 Chief Complaint F/u for Lower esophageal cancer. History of Present Illness 64-year-old man with history of developmental delay, autism and anxiety presented with dysphagia. Swallow study showed irregular stricture at the GE junction. Upper GI endoscopy on 11/30/2024 showed large fungating mass with bleeding about 36 cm from the incisors. Stenting was done. 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 He was seen CT surgery at [facility] on 12/11/2024 neoadjuvant chemoradiation therapy followed by surgery versus definitive chemoradiation therapy with discussed. He had a PET CT scan on 12/12/2024 which showed hypermetabolic activity in the lower esophagus near the GE junction with no lymph nodes. Stent had migrated into the gastric body. He was referred for chemoradiation therapy. He has seen radiation oncology at [place]. Comes for follow up. Had stent removed from stomach and PEG-tube placed. Feels well. [facility] Medical History Tricuspid valve regurgitation Mitral valve regurgitation Autism Cancer History of Mohs micrographic surgery for skin cancer (11/26/24) Chronic constipation Wears hearing aid Wears glasses Anxiety Prostate disease Back pain OCD (obsessive compulsive disorder) Non-smoker History of stress test Intellectual disability Obsessive compulsive disorder Hearing problem History of emotional problems Arthritis Surgical History History of right knee joint replacement History of esophagogastroduodenoscopy (EGD) History of ankle surgery History of tonsillectomy [...] physical activity do you participate in: walking Intake Vital Signs 12/27/24 13:04 01/03/25 09:43 01/07/25 13:33 01/07/25 13:35 Height 5 ft 11 in 5 ft 11 in 5 ft 11 in 5 ft 11 in Weight: 89.896 kg BMI 27.6 BP 132/78 H Blood Pressure Location Lt brachial Position Sitting Respiration 18 Pulse 80 Pulse Source Monitor Temp 98.1 F Temperature Source Temporal Artery Pulse Oximetry (%) 100 Oxygen Delivery Method room air Intake Is patient in pain?: No Allergies No Known Allergies Allergy (Verified 01/07/25 13:34) Medications ???Medication ???Instructions ???Recorded ???Confirmed ???Type sertraline 100 mg tablet 200 mg PO DAILY 11/29/24 01/07/25 History amitriptyline 25 mg tablet 25 mg PO DAILY 12/05/24 01/07/25 H istory famotidine 20 mg tablet 20 mg PO DAILY PRN gastric reflux 12/05/24 01/07/25 History hydrocodone-acetaminophen 5-325mg 1 tab PO Q6H PRN PRN pain 5 01/07/25 History 5mg-325mg lidocaine HCl 2 % mucosal solution 1 applic mucous membrane TID PRN 12/05/24 01/07/25 Rx (Lidocaine Viscous) pain #300 mL bupropion HCl 150 mg 24 hr tablet, 300 mg PO QDAY 12/19/24 01/07/25 History extended release Central Venous Access Central Venous Access: No Exam Physical Exam Const alert, oriented x3 and no apparent distress Cardio regular rate, regular rhythm, S1 normal heart sound and S2 normal heart sound GI GI Narrative: +PEG tube Coding Level of Care Code Off vis,est,level 4 Exam Problem Focused Diagnoses Esophageal adenocarcinoma C15.9 Assessment and Plan Assessment and Plan (1) Esophageal adenocarcinoma: Status: Acute Comment: Discussed lower esophageal cancer-adenocarcinoma, Tx N0 M0, treatment with chemotherapy and Radiation plus/minus surgery. S/P Peg tube placement. Discussed therapy with weekly chemotherapy-Taxol and Carboplatin with Radiation, risks, benefits and side effects. Pt and Sister agree to proceed. Plan: To proceed with surgery consult for Port placement. Will liaise with Radiation therapy to facilitate care. Will do weekly Taxol and Carboplatin with Radiation therapy. 01/07/25 1359 Date Devan Logan MD (more content not included)... Normal [facility] MR/PATDavid 01-04-2025 MR/[facility] Medical Records Department [address] [place] [address] PAT - Anesthesia 01/04/25 1613 MR#: [id number] Acct: [id number] Name: CYNDEE HAWKINS Rep #: [id number] : 1960 64 From: Andrey Morales MD PCP: Dr. Anna Vega, DO Status:PRE SD Y Race: C [place] [facility] [place] Diagnosis/Proposed Procedure Planned Operative Procedure(s): (R) Insertion, Vascular Port right poss left Anesthesia History Anesthesia History - licensed sales assistant: Anesthesia History - licensed sales assistant Hx Hospitalization No 01/04/25 08:11 Any Problems With Anesthesia Yes: IRRITABILITY AND 01/04/25 08:11 AGITATION Cholinesterase deficiency No 01/04/25 08:11 You/Your Family Experience No 01/04/25 08:11 fever (hyperthermia) with Relationship Recent Exposure to Contagious No 01/01/25 10:51 Disease Does patient have nerve No 01/04/25 08:11 stimulator Patient instructed to have device shut off --Does patient have Pacemaker or ICD? When Was Last Pacemaker Check QUESTION #4 FULL TEXT: You/Your Family Experience fever (hyperthermia) with Anesthesia Last Oral Intake Last Oral intake: Last Oral Intake NPO since Meds taken in AM with sips of water? Meds patient instructed to take am of surgery PONV PONV - licensed sales assistant: PONV - licensed sales assistant Female No 01/04/25 08:11 HX of Motion Sickness No 01/04/25 08:11 HX of N/V After Surgery No 01/04/25 08:11 Non-Smoker Yes 01/04/25 08:11 Duration of Surgery greater No 01/04/25 08:11 than 60 minutes Number of Risk Factors 1 01/04/25 08:11 PONV Score Low Risk 01/04/25 08:11 Height Weight Height Weight: Anesthesia: Height Weight Height 5 ft 11 in 01/03/25 09:43 Respiratory Assessment Respiratory Assessment - licensed sales assistant: Respiratory Tract Infection Hx - licensed sales assistant Hx Respiratory Tract Infection No 01/04/25 08:11 STOP Sleep Apnea STOP Sleep Apnea - licensed sales assistant: STOP Sleep Apnea - licensed sales assistant Hx Hypertension No 01/04/25 08:11 Hx Sleep Apnea No 01/04/25 08:11 CPAP No 01/04/25 08:11 BIPAP No 01/04/25 08:11 Do you snore loudly (louder No 01/04/25 08:11 than talking or can be heard Do you often feel tired/ No 01/04/25 08:11 fatigued/ sleepy during daytime? Has anyone observed you stop No 01/04/25 08:11 breathing during sleep? STOP Results Negative 01/04/25 08:11 QUESTION #5 FULL TEXT : Do you snore loudly (louder than talking or can be heard through closed doors)? Tobacco Use History Tobacco Use History - licensed sales assistant: Tobacco Use History - licensed sales assistant Tobacco Use Smoking Status Never smoker 01/04/25 08:11 Hx Tobacco Use No 01/04/25 08:11 Years Smoking Packs Smoked per Day Smoking Cessation Date was within the last 15 years Hx Smoking Cessation Date Hx Smoking Cessation Counseling Hematologic Medial History Hematologic Hx - licensed sales assistant: Hematologic Medical Hx - child and adolescent therapist Hx of Blood Transfusion No 01/04/25 08:11 Hx of Transfusion in last 3 No 01/04/25 08:11 Months Date of Last Transfusion (if within last 3 months) Ever experience any problems No 01/04/25 08:11 with transfusion(s)? Specify any problems Hx of Preganancy in last 3 N/A 01/04/25 08:11 Months Nurse Filling Out Transfusion [facility] 01/04/25 08:11 Questions: Date: 01/04/25 01/04/25 08:11 Time: 08:14 01/04/25 08:11 Patient unable to answer at this time (ie. confused, unrespo /Reproduction History /Reproductive History - licensed sales assistant: /Reproductive Hx- licensed sales assistant Hx Now Gestational Age (in weeks): EDC: Hx Hx Para Hx Section SAB No 12/19/24 14:17 PFSH Medical History Tricuspid valve regurgitation Mitral valve regurgitation Autism Cancer History of Mohs micrographic surgery for skin cancer (11/26/24) Chronic constipation Wears hearing aid Wears glasses Anxiety Prostate disease Back pain OCD (obsessive compulsive disorder) Non-smoker History of stress test Intellectual disability Obsessive compulsive disorder Hearing problem History of emotional problems Arthritis Home Medications ???Medication ???Instructions ???Recorded ???Last Taken ???Type sertraline 100 mg tablet 200 mg PO DAILY 11/29/24 01/01/25 08:00 History amitriptyline 25 mg tablet 25 mg PO DAILY 12/05/24 01/01/25 0 8:00 History famotidine 20 mg tablet 20 mg PO DAILY PRN gastric reflux 12/05/24 Unknown History hydrocodone-acetaminophen 5-325mg 1 tab PO Q6H PRN PRN pain 5 Unknown Histor (more content not included)... Normal [facility] Surgery Visit Reporton 01-03 Surgery Visit Report [facility] [address] [place] [address] OFFICE VISIT Date of Service: 01/03/25 MR#: [id number] Acct: [id number] Name: CYNDEE HAWKINS Rep #: [id number] : 1960 Provider: Dr. Olga felton MD Age/Sex: 64/M Location: [facility] Status: Signed Intake Vital Signs 12/27/24 13:04 01/01/25 11:58 01/03/25 09:43 Height 5 ft 11 in 5 ft 11 in 5 ft 11 in Weight: 196 lb BMI 27.3 BP 108/72 Blood Pressure Location Rt brachial Position Sitting Respiration 17 Pulse 83 Pulse Source Monitor Pulse Oximetry (%) 95 Oxygen Delivery Method room air Intake Visit Reasons: PORT PLACEMENT Chief Complaint: port placement Is patient in pain?: No Allergies No Known Allergies Allergy (Verified 01/03/25 09:44) Medications ???Medication ???Instructions ???Recorded ???Confirmed ???Type sertraline 100 mg tablet 200 mg PO DAILY 11/29/24 01/03/25 History amitriptyline 25 mg tablet 25 mg PO DAILY 12/05/24 01/03/25 H istory famotidine 20 mg tablet 20 mg PO DAILY 12/05/24 01/03/25 H istory hydrocodone-acetaminophen 5-325mg 1 tab PO Q6H PRN PRN pain 5 01/03/25 History 5mg-325mg lidocaine HCl 2 % mucosal solution 1 applic mucous membrane TID PRN 12/05/24 01/03/25 Rx (Lidocaine Viscous) pain #300 mL bupropion HCl 150 mg 24 hr tablet, 300 mg PO QDAY 12/19/24 01/03/25 History extended release oxycodone 5 mg/5 mL oral solution 10 mg (10 mL) PO Q6H PRN pain 7 0 01/01/25 01/03/25 Rx days #250 mL PFSH Medical History Tricuspid valve regurgitation Mitral valve regurgitation Autism Cancer History of Mohs micrographic surgery for skin cancer (11/26/24) Chronic constipation Wears hearing aid Wears glasses Anxiety Prostate disease Back pain OCD (obsessive compulsive disorder) Non-smoker History of stress test Intellectual disability Obsessive compulsive disorder Hearing problem History of emotional problems Arthritis Surgical History History of esophagogastroduodenoscopy (EGD) History of ankle surgery History of tonsillectomy [...] do you participate in: walking HPI HPI HPI: 64-year-old male presents for port placement due to esophageal cancer. Patient is unsure of start date for chemotherapy/radiation. Patient has just had PEG tube placed by Dr. Woodson. ROS General General: Yes weight change; No appetite, fatigue, colon cancer or breast cancer HEENT HEENT: Yes difficulty swallowing; No eye injury, eye surgery, swollen glands or hoarseness Endo Endocrine: No thyroid disease, diabetes mellitus, thyroid cancer, Hair loss, heat intolerance or cold intolerance Skin Skin: No rash or changing moles Musc Musculoskeletal: Yes arthritis; No back problems, rheumatoid arthritis, gout or joint pain Cardio Cardiovascular: No murmur, pacemaker, heart disease, atrial fibrillation, high blood pressure, heart attack, heart stent, palpitations, shortness of breath with exertion or chest pain Psych Psychiatric: Yes depression and anxiety; No hearing voices Resp Respiratory: No shortness of breath, No sleep apnea, No cough, No COPD, No asthma, No emphysema and No wheezing Gastro Gastrointestinal: No abdominal pain, No nausea or vomiting, No diarrhea, No constipation, No blood in stool, No acid reflux, No hemorrhoids, No ulcers, No gallbladder problem and No black,tarry stools Jeet Hematologic: No blood thinners, No blood disorders, No bleeding, No anemia and No blood clots Neuro Neurologic: Yes numbness and Yes tingling Exam Const General: cooperative, healthy appearing, comfortable and no acute distress [facility] Head: normocephalic and atraumatic Neck Neck: supple Chest Other: Palpation bilateral upper chest normal Resp Effort Inspection: normal respiratory effort Cardio Rate: regular rate GI Inspection: non-distended Palpation: nontender Other: PEG tube in place about 5.5 at the skin. Skin General: no rashes or lesions noted Neuro General: CN's II-XI intact bilaterally Extrem General: normal to inspection Psych Mental Status: mental status alley (more content not included)... Normal [facility] EGD Reporton 01-01-2025 EGD Report [facility] Medical Records Department [address] [place] [address] EGD Report MR#: [id number] Acct: [id number] Name: CYNDEE HAWKINS Rep #: [id number] : 1960 64 From: Car Woodson DO PCP: Dr. Anna Vega DO [place] [facility] [place] Name: Cyndee Hawkins Procedure Date: 01/01/2025 11:39 AM Date of : 1960 Age: 64 Procedure: Upper GI endoscopy Indications: Dysphagia Providers: Car Woodson DO Referring MD: Anna Vega Do Medicines: Monitored Anesthesia Care Patient Profile: This is a 64 year old male. Refer to note in patient chart for documentation of history and physical. Patient has symptoms of chronic dysphagia and dysphagia with both liquids and solids. Complications: No immediate complications. Procedure: Pre-Anesthesia Assessment: - Prior to the procedure, a History and Physical was performed, and patient medications and allergies were reviewed. The patient is competent. The risks and benefits of the procedure and the sedation options and risks were discussed with the patient. All questions were answered and informed consent was obtained. Patient identification and proposed procedure were verified by the physician in the pre-procedure area. Mental Status Examination: alert and oriented. Airway Examination: normal oropharyngeal airway and neck mobility. Respiratory Examination: clear to auscultation. CV Examination: normal. Prophylactic Antibiotics: The patient does not require prophylactic antibiotics. Prior Anticoagulants: The patient has taken no anticoagulant or antiplatelet agents except for NSAID medication. ASA Grade Assessment: II - A patient with mild systemic disease. After reviewing the risks and benefits, the patient was deemed in satisfactory condition to undergo the procedure. The anesthesia plan was to use monitored anesthesia care (MAC). Immediately prior to administration of medications, the patient was re-assessed for adequacy to receive sedatives. The heart rate, respiratory rate, oxygen saturations, blood pressure, adequacy of pulmonary ventilation, and response to care were monitored throughout the procedure. The physical status of the patient was re-assessed after the procedure. After obtaining informed consent, the endoscope was passed under direct vision. Throughout the procedure, the patient's blood pressure, pulse, and oxygen saturations were monitored continuously. The gastroscope was introduced through the mouth, and advanced to the second part of duodenum. The upper GI endoscopy was accomplished without difficulty. The patient tolerated the procedure well. Scope In: 12:02:44 PM Scope Out: 12:27:51 PM Total Procedure Duration Time 0 hours 25 minutes 7 seconds Findings: A large, fungating mass with bleeding and stigmata of recent bleeding was found in the lower third of the esophagus, 35 cm from the incisors. The mass was completely obstructing and circumferential. A TTS dilator was passed through the scope. Dilation with a 15-16.5-18 mm balloon dilator was performed to 16 mm. The dilation site was examined and showed mild improvement in luminal narrowing. A metal stent was found in the stomach. Stent removal was accomplished with a snare. Verification of patient identification for the specimen was done. Localized moderately erythematous mucosa without bleeding was found in the gastric body. The patient was placed in the supine position for PEG placement. The stomach was insufflated to appose gastric and abdominal garcia. A site was located in the body of the stomach with excellent transillumination for placement. The abdominal wall was marked and prepped in a sterile manner. The area was anesthetized with 1 mL of 0.5% lidocaine. The trocar needle was introduced through the abdominal wall and into the stomach under direct endoscopic view. A snare was introduced through the endoscope and opened in the gastric lumen. The guide wire was passed through the trocar and into the open snare. The snare was closed around the guide wire. The endoscope and snare were removed, pulling the wire out through the mouth. A skin incision was made at the site of needle insertion. The endoscopically removable 20 Fr EndoVive Safety gastrostomy tube was lubricated. The G-tube was tied to the guide wire and pulled through the mouth and into the stomach. The trocar needle was removed, and the gastrostomy tube was pulled out from the stomach through the skin. The external bumper was attached to the gastrostomy tube, and the tube was cut to remove the guide wire. The final position of the gastrostomy tube was confirmed by relook endoscopy, and skin marking noted to be 4 cm at the external bumper. The final tension and compression of the abdominal wall by the PEG tube and external bumper were checked and (more content not included)... Normal [facility] Medical Records Department [address] [place] [address] Provation Physician Letter MR#: [id number] Acct: [id number] Name: CYNDEE HAWKINS Rep #: [id number] : 1960 64 From: Car Woodson DO PCP: Dr. Anna Vega DO Status:[facility] 01/01/2025 Anna Vega Do Re : Upper GI endoscopy procedure for Cyndee Ross Dear [place] This procedure was performed on Wednesday, January 01, 2025. 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 Dilated. - Pre-existing gastric stent, removed. - Erythematous mucosa in the gastric body. - No gross lesions in the entire examined duodenum. - An endoscopically removable PEG placement was successfully completed. Recommendations : - Discharge patient to home. - Resume previous diet. - Continue present medications. My findings are described in the full procedure note, which is enclosed. If I can be of further assistance, please feel free to contact me at . Sincerely, Car Woodson, 01/01/2025 12:53:06 PM This report has been signed electronically. 01/01/25 1253 Date Car Woodson DO Cosigner Signature: Date (if indicated) CC: Dr. Anna Vega DO; Car Woodson DO Date Dictated: 01/01/25 1139 Date Transcribed: Middle [employer] Sports Coach: SHAYY Signed [facility] MR/POSTOP.[facility] 01-01-2025 MR/POSTOP.[facility] Medical Records Department [address] [place] [address] Anesthesia Postop Eval I 01/01/25 1237 MR#: [id number] Acct: [id number] Name: CYNDEE HAWKINS Tomi Rep #: [id number] : 1960 64 From: Stephy Hicks CRNA PCP: Dr. Anna Vega DO Status:REG SDC Y Race: C Location: [place] [address] Anesthesia: Postop Eval I Current Vital Signs Temperature: 97.3 F Pulse Rate: 94 Blood Pressure: 146/93 Respiratory Rate: 20 Pulse Ox: 93 Oxygen Delivery Method: Room Air Assessment Airway patent: Yes Spontaneous unlabored respirations: Yes Mental status: Awake and Calm nausea: No Vomiting: No Anesthesia Complication: No Fluid Hydration Crystalloid volume administer (ml): 700 Total IV fluid infused: 700 Progress Note Anesthesia document: Postop Eval 1 completed: Yes 01/01/25 1238 Date Stephy Hicks [facility]IC [facility] Cosigner Signature: Date CC: Signed Normal [facility] MR/PATDavid 12-28-2024 MR/PAT.[facility] Medical Records Department [address] [place] [address] PAT - Anesthesia 12/28/24 1512 MR#: [id number] Acct: [id number] Name: CYNDEE HAWKINS Rep #: [id number] : 1960 64 From: Andrey Morales MD PCP: Dr. 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 Hx Hospitalization No 12/19/24 14:17 Any Problems With Anesthesia Yes: IRRITABILITY AND 12/19/24 14:17 AGITATION Cholinesterase deficiency No 12/19/24 14:17 You/Your Family Experience No 12/19/24 14:17 fever (hyperthermia) with Relationship Recent Exposure to Contagious No 11/30/24 14:13 Disease Does patient have nerve No 12/19/24 14:17 stimulator Patient instructed to have device shut off --Does patient have Pacemaker or ICD? When Was Last Pacemaker Check QUESTION #4 FULL TEXT: You/Your Family Experience fever (hyperthermia) with Anesthesia Last Oral Intake Last Oral intake: Last Oral Intake NPO since Meds taken in AM with sips of water? Meds patient instructed to take am of surgery PONV PONV - licensed sales assistant: PONV - licensed sales assistant Female No 12/19/24 14:17 HX of Motion Sickness No 12/19/24 14:17 HX of N/V After Surgery No 12/19/24 14:17 Non-Smoker Yes 12/19/24 14:17 Duration of Surgery greater No 12/19/24 14:17 than 60 minutes Number of Risk Factors 1 12/19/24 14:17 PONV Score Low Risk 12/19/24 14:17 Height Weight Height Weight: Anesthesia: Height Weight Height 5 ft 11 in 12/27/24 13:04 Respiratory Assessment Respiratory Assessment - licensed sales assistant: Respiratory Tract Infection Hx - licensed sales assistant Hx Respiratory Tract Infection No 12/19/24 14:17 STOP Sleep Apnea STOP Sleep Apnea - licensed sales assistant: STOP Sleep Apnea - licensed sales assistant Hx Hypertension No 12/19/24 14:17 Hx Sleep Apnea No 12/19/24 14:17 CPAP No 12/19/24 14:17 BIPAP No 12/19/24 14:17 Do you snore loudly (louder No 12/19/24 14:17 than talking or can be heard Do you often feel tired/ No 12/19/24 14:17 fatigued/ sleepy during daytime? Has anyone observed you stop No 12/19/24 14:17 breathing during sleep? STOP Results Negative 12/19/24 14:17 QUESTION #5 FULL TEXT : Do you snore loudly (louder than talking or can be heard through closed doors)? Tobacco Use History Tobacco Use History - licensed sales assistant: Tobacco Use History - licensed sales assistant Tobacco Use Smoking Status Never smoker 12/19/24 14:17 Hx Tobacco Use No 12/19/24 14:17 Years Smoking Packs Smoked per Day Smoking Cessation Date was within the last 15 years Hx Smoking Cessation Date Hx Smoking Cessation Counseling Hematologic Medial History Hematologic Hx - licensed sales assistant: Hematologic Medical Hx - child and adolescent therapist Hx of Blood Transfusion No 12/19/24 14:17 Hx of Transfusion in last 3 No 12/19/24 14:17 Months Date of Last Transfusion (if within last 3 months) Ever experience any problems No 12/19/24 14:17 with transfusion(s)? Specify any problems Hx of Preganancy in last 3 N/A 12/19/24 14:17 Months Nurse Filling Out Transfusion DSCHRIBER 12/19/24 14:17 Questions: Date: 12/19/24 12/19/24 14:17 Time: 14:18 12/19/24 14:17 Patient unable to answer at this time (ie. confused, unrespo /Reproduction History /Reproductive History - licensed sales assistant: /Reproductive Hx- licensed sales assistant Hx Now Gestational Age (in weeks): EDC: Hx Hx Para Hx Section SAB No 12/19/24 14:17 PFSH Medical History Tricuspid valve regurgitation Mitral valve regurgitation Autism Cancer History of Mohs micrographic surgery for skin cancer (11/26/24) Chronic constipation Wears hearing aid Wears glasses Anxiety Prostate disease Back pain OCD (obsessive compulsive disorder) Non-smoker History of stress test Intellectual disability Obsessive compulsive disorder Hearing problem History of emotional problems Arthritis Home Medications ???Medication ???Instructions ???Recorded ???Last Taken ???Type sertraline 100 mg tablet 200 mg PO DAILY 11/29/24 Unknown H istory amitriptyline 25 mg tablet 25 mg PO DAILY 12/05/24 Unknown Hi story famotidine 20 mg tablet 20 mg PO DAILY 12/05/24 Unknown Hi story hydrocodone-acetaminophen 5-325mg 1 tab PO Q6H PRN PRN pain 5 Unknown History 5mg-325mg lidocaine HCl 2 % mucosal solution 1 applic muc (more content not included)... Normal [facility] Oncology Visit Reporton 12-05 Oncology Visit Report [facility] [address] [place] [address] OFFICE VISIT Date of Service: 12/27/24 1304 MR#: [id number] Acct: [id number] Name: CYNDEE HAWKINS Tomi Rep #: [id number] : 1960 From: Devan Logan MD Age/Sex: 64/M Location: [facility] [place] Status: Signed HPI Subjective Date of Service 12/27/24 Chief Complaint Referred for esophageal cancer History of Present Illness 64-year-old man with history of developmental delay, autism and anxiety presented with dysphagia. Swallow study showed irregular stricture at the GE junction. Upper GI endoscopy on 11/30/2024 showed large fungating mass with bleeding about 36 cm from the incisors. Stenting was done. 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 He was seen CT surgery at [facility] on 12/11/2024 neoadjuvant chemoradiation therapy followed by surgery versus definitive chemoradiation therapy with discussed. He had a PET CT scan on 12/12/2024 which showed hypermetabolic activity in the lower esophagus near the GE junction with no lymph nodes. Stent had migrated into the gastric body. He is now referred for chemoradiation therapy. He has seen radiation oncology at [facility]. [facility] Medical History Tricuspid valve regurgitation Mitral valve regurgitation Autism Cancer History of Mohs micrographic surgery for skin cancer (11/26/24) Chronic constipation Wears hearing aid Wears glasses Anxiety Prostate disease Back pain OCD (obsessive compulsive disorder) Non-smoker History of stress test Intellectual disability Obsessive compulsive disorder Hearing problem History of emotional problems Arthritis Surgical History History of esophagogastroduodenoscopy (EGD) History of ankle surgery History of tonsillectomy [...] physical activity do you participate in: walking Intake Vital Signs 12/24/24 10:02 12/27/24 13:04 Height 5 ft 11 in 5 ft 11 in Weight: 89.556 kg 89.131 kg BMI 27.5 27.3 BP 130/80 H 127/79 H Blood Pressure Location Rt brachial Rt brachial Position Sitting Sitting Respiration 16 18 Pulse 88 90 Pulse Source Monitor Monitor Temp 96.9 F L 98.4 F Temperature Source Temporal Artery Temporal Artery Pulse Oximetry (%) 97 95 Oxygen Delivery Method room air room air Intake Is patient in pain?: No Allergies No Known Allergies Allergy (Verified 12/27/24 13:05) Medications ???Medication ???Instructions ???Recorded ???Confirmed ???Type sertraline 100 mg tablet 200 mg PO DAILY 11/29/24 12/27/24 History amitriptyline 25 mg tablet 25 mg PO DAILY 12/05/24 12/27/24 H istory famotidine 20 mg tablet 20 mg PO DAILY 12/05/24 12/27/24 H istory hydrocodone-acetaminophen 5-325mg 1 tab PO Q6H PRN PRN pain 5 12/27/24 History 5mg-325mg lidocaine HCl 2 % mucosal solution 1 applic mucous membrane TID PRN 12/05/24 12/27/24 Rx (Lidocaine Viscous) pain #300 mL bupropion HCl 150 mg 24 hr tablet, 300 mg PO QDAY 12/19/24 12/27/24 History extended release acetaminophen 500 mg capsule 500 mg PO Q6H PRN 12/20/24 5 History gabapentin 300 mg capsule 300 mg PO TID 12/20/24 12/27/24 Hi story hydroxyzine HCl 10 mg tablet 10 mg PO TID PRN 12/20/24 12/27/24 History meloxicam 15 mg tablet 15 mg PO QDAY 12/20/24 12/27/24 Hi story tamsulosin 0.4 mg capsule (Flomax) 0.4 mg PO QDAY 12/20/24 12/27/24 History Central Venous Access Central Venous Access: No Exam Physical Exam Const alert, oriented x3 and no apparent distress HEENT normocephalic and external ears normal HEENT Narrative: +hearing aids Eyes conjunctivae normal Neck supple Lymph Lymphatic: no lymphadenopathy noted Resp clear to auscultation bilaterally Cardio regular rate, regular rhythm, S1 normal heart sound and S2 normal heart sound GI normal to inspection, nondistended, normoactive bowel sounds no CVA tenderness Back/Spine no CVA tenderness Extremity no clubbing, cyanosis or edema Skin no rashes or lesions noted Neuro oriented x3, CN's II-XII intact bilaterally and moves all extremities Coding Level of Care Code Off vis,new,level 4 Exam Problem (more content not included)... Normal [facility] Radiation Oncology Visiton 0 12-24-2024 Radiation Oncology Visit [facility] [address] [place] [id number] OFFICE VISIT Date of Service: 12/24/2458 MR#: [id number] Acct: [id number] Name: CYNDEE HAWKINS Tomi Rep #: [id number] : 1960 From: Sebastián Hsu DO Age/Sex: 64/M Location: [facility] [place] Status: Signed Intake Vital Signs 12/05/24 11:08 12/24/24 10:02 Height 5 ft 11 in 5 ft 11 in Weight: 197 lb 7 oz BMI 27.5 BP 130/80 H Blood Pressure Location Rt brachial Position Sitting Respiration 16 Pulse 88 Pulse Source Monitor Temp 96.9 F L Temperature Source Temporal Artery Pulse Oximetry (%) 97 Oxygen Delivery Method room air Intake Visit Reasons: ESOPHAGEAL CA Is patient in pain?: No Allergies No Known Allergies Allergy (Verified 12/24/24 10:00) Medications ???Medication ???Instructions ???Recorded ???Confirmed ???Type sertraline 100 mg tablet 200 mg PO DAILY 11/29/24 12/24/24 History amitriptyline 25 mg tablet 25 mg PO DAILY 12/05/24 12/24/24 H istory famotidine 20 mg tablet 20 mg PO DAILY 12/05/24 12/24/24 H istory hydrocodone-acetaminophen 5-325mg 1 tab PO Q6H PRN PRN pain 5 12/24/24 History 5mg-325mg lidocaine HCl 2 % mucosal solution 1 applic mucous membrane TID PRN 12/05/24 12/24/24 Rx (Lidocaine Viscous) pain #300 mL bupropion HCl 150 mg 24 hr tablet, 300 mg PO QDAY 12/19/24 12/24/24 History extended release acetaminophen 500 mg capsule 500 mg PO Q6H PRN 12/20/24 5 History gabapentin 300 mg capsule 300 mg PO TID 12/20/24 12/24/24 Hi story hydroxyzine HCl 10 mg tablet 10 mg PO TID PRN 12/20/24 12/24/24 History meloxicam 15 mg tablet 15 mg PO QDAY 12/20/24 12/24/24 Hi story tamsulosin 0.4 mg capsule (Flomax) 0.4 mg PO QDAY 12/20/24 12/24/24 History PFSH PFSH Medical History Tricuspid valve regurgitation Mitral valve regurgitation Autism Cancer History of Mohs micrographic surgery for skin cancer (11/26/24) Chronic constipation Wears hearing aid Wears glasses Anxiety Prostate disease Back pain OCD (obsessive compulsive disorder) Non-smoker History of stress test Intellectual disability Obsessive compulsive disorder Hearing problem History of emotional problems Arthritis Home Medications ???Medication ???Instructions ???Recorded ???Last Taken ???Type sertraline 100 mg tablet 200 mg PO DAILY 11/29/24 Unknown H istory amitriptyline 25 mg tablet 25 mg PO DAILY 12/05/24 Unknown Hi story famotidine 20 mg tablet 20 mg PO DAILY 12/05/24 Unknown Hi story hydrocodone-acetaminophen 5-325mg 1 tab PO Q6H PRN PRN pain 5 Unknown History 5mg-325mg lidocaine HCl 2 % mucosal solution 1 applic mucous membrane TID PRN 12/05/24 Unknown Rx (Lidocaine Viscous) pain #300 mL bupropion HCl 150 mg 24 hr tablet, 300 mg PO QDAY 12/19/24 Unknown History extended release acetaminophen 500 mg capsule 500 mg PO Q6H PRN 12/20/24 Unknown History gabapentin 300 mg capsule 300 mg PO TID 12/20/24 Unknown His tory hydroxyzine HCl 10 mg tablet 10 mg PO TID PRN 12/20/24 Unknown History meloxicam 15 mg tablet 15 mg PO QDAY 12/20/24 Unknown His tory tamsulosin 0.4 mg capsule (Flomax) 0.4 mg PO QDAY 12/20/24 Unknown History Allergy/AdvReac Type Severity Reaction Status Date / Time No Known Allergies Allergy Verified 12/24/24 10:00 Family History Other Arthritis Bowel disease Colon cancer Diabetes Heart disease High cholesterol Hypertension Osteoporosis Surgical History History of esophagogastroduodenoscopy (EGD) History of ankle surgery History of tonsillectomy History of colonoscopy History of left knee replacement History of total left hip replacement History of total right hip replacement History of nasal surgery Social History Smoking Status: Never smoker alcohol intake: never substance use type: does not use what type of physical activity do you participate in: walking Referring Provider: Marcelino Barahona DO Diagnosis: Cyndee Hawkins is a 64 year-old male diagnosed with 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 History of Present Illness: 11/30/2024: Patient completed EGD.??? This demonstrated a large fungating mass with bleeding and no stigmata of recent bleeding found in the lower third of esophagus at 36 cm from the incisors.??? The mass was completely obstructing and circumferential biopsies were taken.??? (more content not included)... Normal [facility] Gastroenterology Visit Repor ton 12-19-2024 Gastroenterology Visit Report [facility] Gastroenterology [address] [place] [address] OFFICE VISIT Date of Service: 12/19/24 MR#: [id number] Acct: [id number] Name: CYNDEE HAWKINS Rep #: [id number] : 1960 Provider: MIGNON Valle Age/Sex: 64/M Location: [facility] [place] Status: Signed Intake Vital Signs 10/23/24 10:08 12/05/24 11:08 Height 5 ft 11 in 5 ft 11 in Intake Visit Reasons: Test Result Chief Complaint: esophageal cancer Allergies No Known Allergies Allergy (Verified 12/05/24 11:09) Medications ???Medication ???Instructions ???Recorded ???Confirmed ???Type sertraline 100 mg tablet 200 mg PO DAILY 11/29/24 12/19/24 History amitriptyline 25 mg tablet 25 mg PO QHS 12/05/24 12/19/24 His tory famotidine 20 mg tablet 20 mg PO BID 12/05/24 12/19/24 His tory hydrocodone-acetaminophen 5-325mg 1 tab PO Q6H PRN PRN Pain 3 days 12/05/24 Rx 5mg-325mg #12 TABLETS hydrocodone-acetaminophen 5-325mg 1 tab PO Q6H PRN PRN pain 5 History 5mg-325mg lidocaine HCl 2 % mucosal solution 1 applic mucous membrane TID PRN 12/05/24 Rx (Lidocaine Viscous) pain #300 mL bupropion HCl 150 mg 24 hr tablet, 300 mg PO QDAY 12/19/24 12/19/24 History extended release Nurse's Note: OV 12/19/24 Pt here for a f/u. Pt reports trouble swallowing and poor appetite. Pt continues famotidine and amitriptyline daily. PFSH Medical History Autism Cancer History of Mohs [...] participate in: walking HPI HPI Chief Complaint: esophageal cancer Details: CYNDEE HAWKINS, is a 64 M who presents to the office today for f/u. I established 5.20.25 for dysphagia intermittently over hte past 6 weeks. Endorsing a 10 lbs weight loss over the time frame. Pt regurgitating his foods. Denies odynophagia or heartburn. Taking Pantoprazole 40 mg twice a day. Last colonoscopy a few years ago. Esophagram; dilated esophagus and distal stricture EGD 6..25; - Completely obstructing, malignant esophageal tumor was found in the lower third of the esophagus. Biopsied. Prosthesis placed. - No gross lesions in the entire stomach. - No gross lesions in the second portion of the duodenum. *Biopsy positive for invasive esophageal adenocarcinoma [facility] ED 6.28.25 with chest pain [facility] 7.2.25 with odynophagia given norco and viscous lidocaine OV 7.16.25 Pt continues to have dysphagia to solids and liquids. He has been able to eat mash potatoes and nutritional drinks. Seen by cardiothoracic surgery who recommended neoadjuvant chemo and radiation with esophagectomy to follow. Pt does not want to have major surgery. PET scan showing a migrated stent to the stomach. ROS Const Constitutional: No fatigue, fever(s) or weight change ENT ENT: Positive for difficulty swallowing Gastro GI: Positive for abdominal pain, bloating, diarrhea, heartburn, difficulty swallowing, excessive flatus and nausea/dyspepsia; No belching, change in bowel habits, change in stool character, coffee ground emesis, constipation, cramping, feeling full early, incontinent of stools, Vomiting blood/hematemesis, Blood in stool, loose stools, Black,tarry stools, pain with swallowing, vomiting or other Musc Musculoskeletal: Positive for numbness, stiffness, tingling and Arthritis; No joint pain Skin Skin: Positive for dry skin; No yellowing of the eye or itchy eyes Neuro Neurology: Positive for numbness and tingling Psych Psychiatric: Positive for anxiety and Positive for depression Endo Endocrine: No fatigue or weight change Aller/Imm Allergy/Immunologic: No itchy eyes Jeet/Lymp Hematologic/Lymphatic: No easy bleeding or easy bruising Exam Const General: cooperative and anxious Orientation: alert (more content not included)... Normal [facility] MR/PAT.Fabrice 12-19-2024 MR/PAT.[facility] Medical Records Department [address] [place] [address] PAT - Anesthesia 12/19/24 1647 MR#: [id number] Acct: [id number] Name: CYNDEE HAWKINS Rep #: [id number] : 1960 64 From: Jeremias Grimes MD PCP: Dr. 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 When Was Last Pacemaker Check QUESTION #4 FULL TEXT: You/Your Family Experience fever (hyperthermia) with Anesthesia Last Oral Intake Last Oral intake: Last Oral Intake NPO since Meds taken in AM with sips of water? Meds patient instructed to take am of surgery PONV PONV - licensed sales assistant: PONV - licensed sales assistant Female No 12/19/24 14:17 HX of Motion Sickness No 12/19/24 14:17 HX of N/V After Surgery No 12/19/24 14:17 Non-Smoker Yes 12/19/24 14:17 Duration of Surgery greater No 12/19/24 14:17 than 60 minutes Number of Risk Factors 1 12/19/24 14:17 PONV Score Low Risk 12/19/24 14:17 Height Weight Height Weight: Anesthesia: Height Weight Height 5 ft 11 in 12/05/24 11:08 Respiratory Assessment Respiratory Assessment - licensed sales assistant: Respiratory Tract Infection Hx - licensed sales assistant Hx Respiratory Tract Infection No 12/19/24 14:17 STOP Sleep Apnea STOP Sleep Apnea - licensed sales assistant: STOP Sleep Apnea - licensed sales assistant Hx Hypertension No 12/19/24 14:17 Hx Sleep Apnea No 12/19/24 14:17 CPAP No 12/19/24 14:17 BIPAP No 12/19/24 14:17 Do you snore loudly (louder No 12/19/24 14:17 than talking or can be heard Do you often feel tired/ No 12/19/24 14:17 fatigued/ sleepy during daytime? Has anyone observed you stop No 12/19/24 14:17 breathing during sleep? STOP Results Negative 12/19/24 14:17 QUESTION #5 FULL TEXT : Do you snore loudly (louder than talking or can be heard through closed doors)? Tobacco Use History Tobacco Use History - licensed sales assistant: Tobacco Use History - licensed sales assistant Tobacco Use Smoking Status Never smoker 12/19/24 14:17 Hx Tobacco Use No 12/19/24 14:17 Years Smoking Packs Smoked per Day Smoking Cessation Date was within the last 15 years Hx Smoking Cessation Date Hx Smoking Cessation Counseling Hematologic Medial History Hematologic Hx - licensed sales assistant: Hematologic Medical Hx - child and adolescent therapist Hx of Blood Transfusion No 12/19/24 14:17 Hx of Transfusion in last 3 No 12/19/24 14:17 Months Date of Last Transfusion (if within last 3 months) Ever experience any problems No 12/19/24 14:17 with transfusion(s)? Specify any problems Hx of Preganancy in last 3 N/A 12/19/24 14:17 Months Nurse Filling Out Transfusion DSCHRIBER 12/19/24 14:17 Questions: Date: 12/19/24 12/19/24 14:17 Time: 14:18 12/19/24 14:17 Patient unable to answer at this time (ie. confused, unrespo /Reproduction History /Reproductive History - licensed sales assistant: /Reproductive Hx- licensed sales assistant Hx Now Gestational Age (in weeks): EDC: Hx Hx Para Hx Section SAB No 12/19/24 14:17 [facility] Medical History (Updated 12/19/24 @ 14:20 by Ibeth Ott) Autism Cancer History of Mohs micrographic surgery for skin cancer (11/26/24) Chronic constipation Wears hearing aid Wears glasses Anxiety Prostate disease Back pain OCD (obsessive compulsive disorder) Non-smoker History of stress test Intellectual disability Obsessive compulsive disorder Hearing problem History of emotional problems Arthritis Home Medications ???Medication ???Instructions ???Recorded ???Last Taken ???Type sertraline 100 mg tablet 200 mg PO DAILY 11/29/24 Unknown H istory amitriptyline 25 mg tablet 25 mg PO DAILY 12/05/24 Unknown Hi story famotidine 20 mg tablet 20 mg PO DAILY 12/05/24 Unknown Hi story hydrocodone-acetaminophen 5-325mg 1 tab PO Q6H PRN PRN pain 5 Unknown History 5mg-325mg lidocaine HCl 2 % mucosal solution 1 applic mucous membrane TID PRN 12/05/24 Unknown Rx (Lidocaine Viscous) pain (more content not included)... Normal [facility] PET/CT INITIAL STAGING TUMOR SKULL [id number] 12-14-2024 PET/CT INITIAL STAGING TUMOR SKULL [id number] ORIGINAL EXAMINATION: PET TUMOR IMAGING SKULL-THIGH12/12/2024 10:28 am TECHNIQUE: Intravenous injection of 12 mCi Fluorine-18 fluorodeoxyglucose (FDG) was administered, followed by acquisition of positron emission tomographic images from the skull base to mid thigh, with concurrent low-dose CT for attenuation correction and anatomic localization utilizing a combined PET/CT scanner. PET images were fused with low-dose CT at the workstation. Dose [id number] time:53 min Serum glucose level: 102 mg/dl COMPARISON: CT abdomen/pelvis 12/03/2024 HISTORY: Reason for Exam: Esophageal cancer, staging FINDINGS: NECK: No FDG avid soft tissue lesion within the neck. No FDG avid cervical lymph nodes. CHEST: No FDG avid parenchymal pulmonary nodule. No FDG avid mediastinal, hilar, or axillary lymphadenopathy. ABDOMEN/PELVIS: The known malignancy near the gastroesophageal junction demonstrates abnormal uptake (max SUV 9.2). The proximal esophagus is patulous. There is migration of an esophageal stent within the gastric body. A few linear metallic densities are identified in the distal esophagus, proximal stomach near gastroesophageal junction, and proximal end of esophageal stent. No FDG avid abdominal or pelvic lymphadenopathy. Physiologic radiotracer is present within the kidneys, ureters, urinary bladder, as well as the bowel. MUSCULOSKELETAL: No FDG avid or suspicious osseous lesion to suggest osseous metastatic disease. Bilateral hip prostheses with associated streak artifacts. IMPRESSION: 1. Abnormal uptake at the known malignancy near the gastroesophageal junction. 2. No FDG avid lymph nodes. 3. Migration of esophageal stent in the gastric body. A few linear metallic densities in the esophagus, proximal stomach near the gastroesophageal junction, and proximal end of esophageal stent. I have personally reviewed the images of this examination and agree with the resident's findings and interpretations. Interpreted by: Ashleigh Anderson MD Preliminary Report By: Rustam Geiger Electronically signed By Ashleigh Anderson MD Dictated Date: 12/12/2024 11:05:01 AM Prelim Date: 12/14/2024 12:34:14 PM Sign Date: 12/14/2024 12:34:14 PM Ordering Provider: ANNA VEGA [facility]IN Office Visiton 12-11-2024 Follow-up visit [id number] Joe Hawkins 1960 M Date Provider Department Center 12/11/2024 [id number] BARAHONA [facility] CT None Family History Problem Relation Age of Onset Hyperlipidemia Mother Coronary artery disease Father Family Status - Relation Status Age at Mother Father Level of Service:42742 [place] OFFICE/OUTPATIENT NEW HIGH MDM 60 MINUTES Reason for Visit and Comments: New Patient [542] [facility] Progress Noteon 12-11-2024 Progress Note [facility] CARDIOVASCULAR & THORACIC SURGERY [address] [facility] [facility] [address] Dept: [phone] Dept Loc: [phone] Visit type: New Reason for Visit: Dysphagia, possible esophageal cancer Assessment and plan Mr. Hawkins is a pleasant 64-year-old male who is accompanied today. He has a history of developmental delay autism anxiety. He saw his primary care physician in October 2024 due to concern for dysphagia. A workup was initiated within swallow study. This demonstrated a 2.5 cm irregular stricture at the GE junction. He subsequently underwent EGD with biopsy. Per the guardian, due to the biopsy results a second EGD with stent placement was performed. Their understanding is that the biopsy showed abnormal cells. When asked specifically if this demonstrated cancer, they were unsure. He is scheduled for a PET scan tomorrow in [place] so my suspicion is that this did demonstrate a carcinoma. In the event that this is esophageal cancer, we did discuss the potential treatmentstrategies. I reviewed the available pathology, imaging, and testing results with the patient. We had a lengthy discussion regarding approaches to this disease and reviewed the most up-to-date NCCN guidelines with the caveat that the final treatment strategy would be dictated by the pathology results as well as the PET scan. Based on the EGD images and CT images, this appears to be at least locally advanced. If there is no distant disease a typical treatment regimen would involve neoadjuvant chemoradiation, followed by restaging, followed by esophagectomy. The patient is concerned about having another big surgery. He asked if there are any alternatives to surgery. We did discuss that definitive chemoradiation is an alternative. This does not preclude a salvage esophagectomy in the event that there is residual disease however it does set off with the intention of a nonsurgical course. At this time he is more interested in this route. I encouraged him to keep his PET scan appointment tomorrow. He lives in [place] and [facility] is much closer to him than [place], so we will plan for referral to medical and radiation oncology in [place]. After completion of PET and obtaining his pathology report, I will plan to touch base with his medical and and radiation oncology team for final synthesis and recommendations. In the meantime I encouraged him to consider his desires for a neoadjuvant surgical approach versus definitive chemoradiation approach with the understanding that we are still gathering information for final recommendation. 1. Esophageal dysphagia History of Present Illness Cyndee Hawkins is a 64 y.o. male referred by Dr. Vega for esophageal cancer. Per note, patient with past medical history significant for anxiety, autism, developmental delay, HLD, hyperostosis, mitral and tricuspid valve regurgitation. Pt saw his PCP (Dr. Vega) on 10/04/24 where he reported dysphagia for several weeks. Pt was seen by ENT (Dr. Vidal) where a flexible laryngoscopy was performed with normal findings. Pt then had a barium esophagram on 11/22/24 which demonstrated diffusely dilated and slightly hypo peristaltic esophagus with a 2.5 cm irregular stricture at the GE junction. Pt underwent EGD with stent placement and biopsy on 11/30/24. Pt was seen in ED on 12/03/24 for epigastric pain, had CT abd/pelvis which demonstrated constipation and a small umbilical hernia. Patient is here today for an evaluation. Past Medical History Medical History[1] Past Surgical History Surgical History[2] Family History Family History[3] Social History Social History[4] Allergies Allergies[5] Medications Current Medications[6] Review of Systems Review of Systems Constitutional: Negative. HENT: Negative. Eyes: Negative. Respiratory: Negative. Cardiovascular: Negative. Gastrointestinal: Dysphagia Endocrine: Negative. Genitourinary: Negative. Musculoskeletal: Negative. Skin: Negative. Allergic/Immunologic: Negative. Neurological: Negative. Hematological: Negative. Psychiatric/Behavioral: Negative. Physical Exam Vitals: BP (!) 124/93 (BP Location: Left arm, Patient Position: Sitting, BP Cuff Size: Large adult) Pulse 88 Wt 208 lb (94.3 kg) Constitutional: General: Not in acute distress. Appearance: Normal appearance. Not toxic-appearing. Ear, nose, mouth: Bilateral external ear and nose normal. Nose: Nose normal. Mouth: Appearance normal, no bleeding, moist mucus membranes Eyes: General: No scleral icterus. No discharge from bilateral eyes Extraocular Movements: Extraocular movements intact. Pupils equal and reactive bilaterally Cardiovascular: Heart: Regular rhythm. Normal heart sounds. Edema: No edema in bilateral lower extremities Pulmonary: Effort: Pulmonary effort is normal. No respiratory distress. (more content not included)... Normal [facility] Emergency Department Summary on 12-05-2024 Emergency Department Summary [facility] Medical Records Department [address] [place] [address] Emergency Department Summary 12/05/24 MR#: [id number] Acct: [id number] Name: CYNDEE HAWKINS Rep #: [id number] : 1960 64 From: Min Alvarado MD PCP: Dr. Anna Vega, DO Status:REG ER Location: ED HPI History of Present Illness Chief Complaint: Other, Pain/Inj Narrative Narrative: 64-year-old male past medical history of autism/intellectual disability presents with his sister, his caregiver because of pain with swallowing. He was being worked up for dysphagia and difficulty swallowing for the past few months. He had upper endoscopy done twice on Tuesday of last week, approximately [address] Woodson[address] They state that they did endoscopy twice, 1 initially and a second 1 for stenting because they found a tissue. Since then, patient has been seen in the emergency department twice for chest pain and pain with swallowing. He has had chest pain workups that are negative. His sister states that he was given a GI cocktail and hydrocodone when he was seen at [facility] on Tuesday. He now has wincing pain whenever he swallows. It has been difficult for him to eat, or even drink water because he winces in pain. The hydrocodone seems to help temporarily. His sister is concerned because the weekend is coming up and she is running out of pain medications. [facility] Medical History Autism Cancer History of Mohs micrographic surgery for skin cancer (11/26/24) Chronic constipation Wears hearing aid Wears glasses Autistic behavior Anxiety Prostate disease Back pain OCD (obsessive compulsive disorder) Non-smoker History of stress test Intellectual disability Obsessive compulsive disorder Hearing problem History of emotional problems Bone fracture Arthritis Home Medications ???Medication ???Instructions ???Recorded ???Last Taken ???Type sertraline 100 mg tablet 200 mg PO DAILY 11/29/24 Unknown H istory amitriptyline 25 mg tablet 25 mg PO QHS 12/05/24 Unknown Hist ory famotidine 20 mg tablet 20 mg PO BID 12/05/24 Unknown Hist ory hydrocodone-acetaminophen 5-325mg 1 tab PO Q6H PRN PRN Pain 3 days 12/05/24 Unknown Rx 5mg-325mg #12 TABLETS hydrocodone-acetaminophen 5-325mg 1 tab PO Q6H PRN PRN pain 5 Unknown History 5mg-325mg lidocaine HCl 2 % mucosal solution 1 applic mucous membrane TID PRN 07/02/25 Unknown Rx (Lidocaine Viscous) pain #300 mL ondansetron 4 mg disintegrating 4 mg PO Q6H PRN PRN nausea and 07/31 Unknown History tablet vomiting Allergy/AdvReac Type Severity Reaction Status Date / Time No Known Allergies Allergy Verified 12/05/24 11:09 Family History Other Arthritis Bowel disease Colon [...] activity do you participate in: walking ROS ROS ED ROS Narrative Review of systems positive for dysphagia and a dyne aphasia. No recent fevers or chills, no nausea or vomiting. Wincing pain with swallowing food. EXAM Physical Exam Narrative Exam Narrative: Afebrile. Vital signs noted. Nontoxic-appearing. Cardiovascular examination reveals regular rate and rhythm. Lungs are clear to auscultation bilaterally. Abdomen is soft and nontender without guarding or rebound. Neurological examination is nonfocal and nonlateralizing. Const Vital Signs: 12/05/24 11:08 12/05/24 11:23 Temperature 98.3 F Temperature Source Temporal Pulse Rate 81 Respiratory Rate 14 Respiratory Effort Normal Respiratory Pattern Normal Blood Pressure 130/84 H Blood Pressure Mean 99 Pulse Ox 98 Oxygen Delivery Method Room Air MDM MDM MDM Narrative Medical decision making narrative: I had a lengthy discussion with the patient and his sister. Differential diagnosis includes but not limited to esophageal spasm versus mucosal irritation from endoscopy. I discussed the patient with Dr. Woodson, and reviewed his EMR. It was found on upper endoscopy that the tissue mentioned was biopsied, and that the patient requires follow-up with hematology/oncology. I attempted to speak with his sister alone, but patient did not want her to leave the room. Patient was given a GI (more content not included)... Normal [facility] .Auto Diffon 12-03-2024 Basophil, Absolute 0.0 10 3/mcL Normal 0.0-0.3 [facility] Comment on above: Performed By: #### M G, TROPHS, LIP, MDW, ADIFF, GFR, CBC, CMP, ANEU ####[facility] [place], [place] [address] Basophils/100 WBC (Bld) 0.2 % Normal 0.0-2.5 [facility] Comment on above: Performed By: #### M G, TROPHS, LIP, MDW, ADIFF, GFR, CBC, CMP, ANEU ####[place] [id number] [place], [place] [address] Eosinophil, Absolute 0.1 10 3/mcL Normal 0.0-0.7 [facility] Comment on above: Performed By: #### M G, TROPHS, LIP, MDW, ADIFF, GFR, CBC, CMP, ANEU ####[place] [address] [place], [place] [address] Eosinophils/100 WBC (Bld) 1.2 % Normal 0.0-6.0 [facility] Comment on above: Performed By: #### M G, TROPHS, LIP, MDW, ADIFF, GFR, CBC, CMP, ANEU ####[facility] [place], [place] [address] Lymphocyte, Absolute 1.2 10 3/mcL Normal 0.9-4.3 [facility] Comment on above: Performed By: #### M G, TROPHS, LIP, MDW, ADIFF, GFR, CBC, CMP, ANEU ####[facility] [place] [address] Lymphocytes/100 WBC (Bld) 10.0 % Low 20.0-40.0 [facility] Comment on above: Performed By: #### M G, TROPHS, LIP, MDW, ADIFF, GFR, CBC, CMP, ANEU ####[facility] [place], [place] [address] Monocyte, Absolute 0.8 10 3/mcL Normal 0.1-1.4 [facility] Comment on above: Performed By: #### M G, TROPHS, LIP, MDW, ADIFF, GFR, CBC, CMP, ANEU ####[facility] [address] [place], [place] [address] Monocytes/100 WBC (Bld) 7.3 % Normal 2.0-13.0 [facility] Comment on above: Performed By: #### M G, TROPHS, LIP, MDW, ADIFF, GFR, CBC, CMP, ANEU ####[facility] [address] [place], [place] [address] Neutrophils/100 WBC (Bld) 81.1 % High 50.0-75.0 [facility] Comment on above: Performed By: #### M G, TROPHS, TERELL, MDW, ADIFF, GFR, CBC, CMP, ANEU ####[facility] [address] [place], [place] [address] .GFRon 12-03-2024 Estimated Glomerular Filtration Rate 92 ml/min/1.73sqm Normal [facility] Comment on above: Result Comment: Stages of Chronic Kidney Disease (CKD) Stage Description eGFR(ml/min/1.73 sq.m.) CKD 1 Normal kidney function or >=90 normal kindney function with possible kidney damage (ex. Proteinuria) CKD 2 Kidney damage with mild loss 60-89 of kidney function CKD 3a Mild to moderate loss of kidney 45-59 function CKD 3b Moderate to severe loss of 30-44 of kindey function CKD 4 Severe loss of kidney function 15-29 CKD 5 Kidney failure <15 Note: (go live 2024) the eGFR calculation was updated to the 2020 CKD-EPI creatinine equation without a race factor to calculate the eGFR results. Performed By: #### M G, TROPHS, TERELL, MDW, ADIFF, GFR, CBC, CMP, ANEU ####[id number] [place], [place] [address] .MDWon 12-03-2024 Monocyte Distribution Width Not performed Normal 0.00-20.00 [facility] Comment on above: Result Comment: TOM testing unable to be performed on [id number] instrumentation. Performed By: #### M G, TROPHS, LIP, MDW, ADIFF, GFR, CBC, CMP, ANEU ####[facility] [place] [id number] .NEUABSon 12-03-2024 Neutrophil, Absolute 9.7 10 3/mcL High 2.3-8.1 [facility] Comment on above: Performed By: #### M G, TROPHS, LIP, MDW, ADIFF, GFR, CBC, CMP, ANEU ####[place] [id number] [place] [id number] CBCon 12-03-2024 Erythrocyte distribution width (RBC) [Ratio] 12.5 % Normal 11.5-15.5 [facility] Comment on above: Performed By: #### M G, TROPHS, LIP, MDW, ADIFF, GFR, CBC, CMP, ANEU ####[place] [address] Hematocrit (Bld) [Volume fraction] 45.3 % Normal 40.0-52.0 [facility] Comment on above: Performed By: #### Jared G, TROPHS, LIP, MDW, ADIFF, GFR, CBC, CMP, ANEU ####[place] [address] Hgb 15.9 G/dL Normal 13.0-17.5 [facility] Comment on above: Performed By: #### M G, TROPHS, LIP, MDW, ADIFF, GFR, CBC, CMP, ANEU ####[place] [id number] MCH (RBC) [Entitic mass] 32.1 pg Normal 27.0-33.0 [facility] Comment on above: Performed By: #### M G, TROPHS, LIP, MDW, ADIFF, GFR, CBC, CMP, ANEU ####[place] [address] MCHC 35.3 G/dL Normal 32.0-36.0 [facility] Comment on above: Performed By: #### M G, TROPHS, LIP, MDW, ADIFF, GFR, CBC, CMP, ANEU ####[place] [address] MCV (RBC) [Entitic vol] 91.0 fL Normal 81.0-100.0 [facility] Comment on above: Performed By: #### M Harsha, TROPHS, TERELL, MDW, ADIFF, GFR, CBC, CMP, ANEU ####[facility] [address] [place], [place] [address] Platelet 198 10 3/mcL Normal 150-450 [facility] Comment on above: Performed By: #### Jared Mcleod, TROPHS, LIP, MDW, ADIFF, GFR, CBC, CMP, ANEU ####[facility] [address] [place], [place] [address] Platelet mean volume (Bld) [Entitic vol] 7.1 fL Normal 6.4-10.5 [facility] Comment on above: Performed By: #### M Harsha, TROPHS, LIP, MDW, ADIFF, GFR, CBC, CMP, ANEU ####[address] [address] [place], [place] [address] RBC 4.98 10 6/mcL Normal 4.50-6.00 [facility] Comment on above: Performed By: #### M Harsha, TROPHS, LIP, MDW, ADIFF, GFR, CBC, CMP, ANEU ####[facility] [address] [place], [place] [address] WBC 12.0 10 3/mcL High 4.5-10.8 [facility] Comment on above: Performed By: #### Jared Mcleod, TROPHS, TERELL, MDW, ADIFF, GFR, CBC, CMP, ANEU ####[facility] [address] [place], [place] [address] CMPon 12-03-2024 Albumin Level 3.6 G/dL Normal 3.4-4.8 [facility] Comment on above: Performed By: #### M Harsha, TROPHS, LIP, MDW, ADIFF, GFR, CBC, CMP, ANEU ####[facility] [address] [place], [place] [address] Albumin/Globulin [Mass ratio] 0.9 {ratio} Low 1.1-2.5 [facility] Comment on above: Performed By: #### M G, TROPHS, LIP, MDW, ADIFF, GFR, CBC, CMP, ANEU ####[facility] [place], [place] [address] ALP [Catalytic activity/Vol] 85 U/L Normal 40-135 [facility] Comment on above: Performed By: #### M G, TROPHS, LIP, MDW, ADIFF, GFR, CBC, CMP, ANEU ####[facility] [place], [place] [address] ALT [Catalytic activity/Vol] 22 U/L Normal 16-63 [facility] Comment on above: Performed By: #### M G, TROPHS, LIP, MDW, ADIFF, GFR, CBC, CMP, ANEU ####[address] [place], [place] [address] AST [Catalytic activity/Vol] 9 U/L Low 10-40 [facility] Comment on above: Performed By: #### M G, TROPHS, LIP, MDW, ADIFF, GFR, CBC, CMP, ANEU ####[place] [address] [place], [place] [address] Bili Total 0.6 mg/dL Normal 0.2-1.0 [facility] Comment on above: Result Comment: Use of this assay is not recommended for patients undergoing treatment with eltrombopag due to the potential for falsely elevated results. Performed By: #### M G, TROPHS, LIP, MDW, ADIFF, GFR, CBC, CMP, ANEU ####[place] [address] [place], [place] [address] BUN/Creatinine Ratio 24 ratio Normal 7-27 [facility] Comment on above: Performed By: #### M G, TROPHS, LIP, MDW, ADIFF, GFR, CBC, CMP, ANEU ####[place] [address] [place], [place] [address] Calcium [Mass/Vol] 9.4 mg/dL Normal 8.4-10.2 [facility] Comment on above: Performed By: #### M G, TROPHS, LIP, MDW, ADIFF, GFR, CBC, CMP, ANEU ####[place] [address] [place], [place] [address] Chloride [Moles/Vol] 104 mmol/L Normal 98-107 [facility] Comment on above: Performed By: #### M G, TROPHS, LIP, MDW, ADIFF, GFR, CBC, CMP, ANEU ####[address] [address] [place], [place] [address] CO2 [Moles/Vol] 32 mmol/L High 23-31 [facility] Comment on above: Performed By: #### M G, TROPHS, LIP, MDW, ADIFF, GFR, CBC, CMP, ANEU ####[facility] [address] [place], [place] [address] Creatinine [Mass/Vol] 0.93 mg/dL Normal 0.67-1.17 [facility] Comment on above: Performed By: #### M G, TROPHS, LIP, MDW, ADIFF, GFR, CBC, CMP, ANEU ####[facility] [address] [place], [place] [address] Electrolyte Balance 4.0 mEq/L Normal 4.0-15.0 [facility] Comment on above: Performed By: #### M Harsha, TROPHS, LIP, MDW, ADIFF, GFR, CBC, CMP, ANEU ####[facility] [address] [place], [place] [address] Globulin 3.9 G/dL Normal 2.7-4.4 [facility] Comment on above: Performed By: #### M G, TROPHS, LIP, MDW, ADIFF, GFR, CBC, CMP, ANEU ####[address] [address] [place], [place] [address] Glucose [Mass/Vol] 145 mg/dL High 80-115 [facility] Comment on above: Performed By: #### M G, TROPHS, LIP, MDW, ADIFF, GFR, CBC, CMP, ANEU ####[address] [place], [place] [address] Potassium [Moles/Vol] 3.3 mmol/L Low 3.5-5.1 [facility] Comment on above: Performed By: #### M G, TROPHS, LIP, MDW, ADIFF, GFR, CBC, CMP, ANEU ####[facility] [place], [place] [address] Sodium [Moles/Vol] 140 mmol/L Normal 136-145 [facility] Comment on above: Performed By: #### M G, TROPHS, LIP, MDW, ADIFF, GFR, CBC, CMP, ANEU ####[facility] [place], [place] [address] Total Protein 7.5 G/dL Normal 6.4-8.2 [facility] Comment on above: Performed By: #### M G, TROPHS, LIP, MDW, ADIFF, GFR, CBC, CMP, ANEU ####[facility] [place], [place] [address] Urea nitrogen [Mass/Vol] 22 mg/dL High 7-18 [facility] Comment on above: Performed By: #### M G, TROPHS, LIP, MDW, ADIFF, GFR, CBC, CMP, ANEU ####[facility] [place], [place] [address] CT ABD/PELVIS W/ IV CONTRAST ONLYon 12-03-2024 CT ABD/PELVIS W/ IV CONTRAST ONLY ORIGINAL EXAMINATION: CT OF THE ABDOMEN AND PELVIS WITH CONTRAST 12/03/2024 3:16 am TECHNIQUE: CT of the abdomen and pelvis was performed with the administration of intravenous contrast. Multiplanar reformatted images are provided for review. Automated exposure control, iterative reconstruction, and/or weight based adjustment of the mA/kV was utilized to reduce the radiation dose to as low as reasonably achievable. COMPARISON: None. HISTORY: ORDERING SYSTEM PROVIDED HISTORY: Reason for Exam: epigastric pain/pt unable to raise right arm Abdominal pain, acute, nonlocalized ; Epigastric pain FINDINGS: Lower Chest: No acute abnormality is present at the lung bases. Organs: The liver, biliary tree, pancreas, spleen, adrenal glands, and kidneys show no sign of abnormality. GI/Bowel: There is no intestinal obstruction or inflammation. Moderate fecal retention in the rectosigmoid colon is present without obstruction or fecal impaction. There is no free intraperitoneal air or abnormal fluid collection in the abdomen. Pelvis: Bilateral hip replacements obscure detail in the pelvis. Urinary bladder is nearly empty. No abnormal fluid collection is detected in the pelvis. Peritoneum/Retroperitoneum: Abdominal aorta is nonaneurysmal. There is no retroperitoneal lymph node enlargement. Bones/Soft Tissues: Bilateral hip replacements are unremarkable. There is no acute skeletal abnormality. Small umbilical hernia contains only fat with no sign of complication. IMPRESSION: 1. No acute intra-abdominal or intrapelvic abnormality. 2. Moderate fecal retention in the rectosigmoid colon. 3. Small umbilical hernia contains only fat with no sign of complication. Interpreted by: Miko Sequeira MD Preliminary Report By: Miko Sequeira MD Electronically signed By Miko Sequeira MD Dictated Date: 12/03/2024 3:22:37 AM Prelim Date: 12/03/2024 3:27:01 AM Sign Date: 12/03/2024 3:27:01 AM Ordering Provider: AUDRA DIAZ Interpreted by: Miko Sequeira MD Preliminary Report By: Miko Sequeira MD Electronically signed By Miko Sequeira MD Dictated Date: 12/03/2024 3:22:37 AM Prelim Date: 12/03/2024 3:27:01 AM Sign Date: 12/03/2024 3:27:01 AM Ordering Provider: AUDRA DIAZ [facility] LABORATORYOrdered By: SYSTEM SYSTEM on 12-03-2024 Troponin I.cardiac DL <= 0.01 ng/mL [Mass/Vol] 8 ng/L Normal 0 - 76 ng/L AO ADM SS Comment on above: Interpretive Data: H igh Sensitive Troponin I Reference Ranges: Female: 0-51 ng/L Male: 0-76 ng/L Testing performed on [employer] using a homogeneous sandwich chemiluminescent immunoassay based on [employer] technology. Albumin BCP dye [Mass/Vol] 3.6 G/dL Normal 3.4 - 4.8 G/dL AO ADM SS Albumin/Globulin [Mass ratio] 0.9 {ratio} Low 1.1 - 2.5 ratio AO ADM SS ALP [Catalytic activity/Vol] 85 U/L Normal 40 - 135 U/L AO ADM SS ALT With P-5'-P [Catalytic activity/Vol] 22 U/L Normal 16 - 63 U/L AO ADM SS AST With P-5'-P [Catalytic activity/Vol] 9 U/L Low 10 - 40 U/L AO ADM SS Basophils (Bld) [#/Vol] 0.0 103/mcL Normal 0.0 - 0.3 10^3/mcL AO Workflow SS Basophils/100 WBC (Bld) 0.2 % Normal 0.0 - 2.5 % AO Workflow SS Bilirubin [Mass/Vol] 0.6 mg/dL Normal 0.2 - 1.0 mg/dL AO ADM SS Comment on above: Interpretive Data: U se of this assay is not recommended for patients undergoing treatment with eltrombopag due to the potential for falsely elevated results. Calcium [Mass/Vol] 9.4 mg/dL Normal 8.4 - 10. 2 mg/dL AO ADM SS Chloride [Moles/Vol] 104 mmol/L Normal 98 - 107 mmol/L AO ADM SS CO2 [Moles/Vol] 32 mmol/L High 23 - 31 mmol/L AO ADM SS Creatinine [Mass/Vol] 0.93 mg/dL Normal 0.67 - 1.17 mg/dL AO ADM SS Electrolyte Balance 4.0 mEq/L Normal 4.0 - 15 .0 mEq/L AO ADM SS Eosinophil, Absolute 0.1 103/mcL Normal 0.0 - 0.7 10^3/mcL AO Workflow SS Eosinophils/100 WBC (Bld) 1.2 % Normal 0.0 - 6.0 % AO Workflow SS Erythrocyte distribution width (RBC) [Ratio] 12.5 % Normal 11.5 - 15.5 % AO Workflow SS Estimated Glomerular Filtration Rate 92 ml/min/1.73sqm Invalid Interpretation Code AO Chemistry S Comment on above: Interpretive Data: Stages of Chronic Kidney Disease (CKD) Stage Description eGFR(ml/min/1.73 sq.m.) CKD 1 Normal kidney function or >=90 normal kindney function with possible kidney damage (ex. Proteinuria) CKD 2 Kidney damage with mild loss 60-89 of kidney function CKD 3a Mild to moderate loss of kidney 45-59 function CKD 3b Moderate to severe loss of 30-44 of kindey function CKD 4 Severe loss of kidney function 15-29 CKD 5 Kidney failure <15 Note: (go live 2024) the eGFR calculation was updated to the 2020 CKD-EPI creatinine equation without a race factor to calculate the eGFR results. Globulin 3.9 G/dL Normal 2.7 - 4.4 G/dL AO ADM SS Glucose [Mass/Vol] 145 mg/dL High 80 - 115 mg/dL AO ADM SS Hematocrit (Bld) [Volume fraction] 45.3 % Normal 40.0 - 52.0 % AO Workflow SS Hemoglobin (Bld) [Mass/Vol] 15.9 G/dL Normal 13.0 - 17.5 G/dL AO Workflow SS Lipase [Catalytic activity/Vol] 27 U/L Normal 16 - 77 U/L AO ADM SS Lymphocytes (Bld) [#/Vol] 1.2 103/mcL Normal 0.9 - 4.3 10^3/mcL AO Workflow SS Lymphocytes/100 WBC (Bld) 10.0 % Low 20.0 - 40.0 % AO Workflow SS Magnesium [Mass/Vol] 1.8 mg/dL Normal 1.8 - 2.4 mg/dL AO ADM SS MCH (RBC) [Entitic mass] 32.1 pg Normal 27.0 - 33.0 pg AO Workflow SS MCHC 35.3 G/dL Normal 32.0 - 36.0 G/dL AO Workflow SS MCV (RBC) [Entitic vol] 91.0 fL Normal 81.0 - 100.0 fL AO Workflow SS Monocytes (Bld) [#/Vol] 0.8 103/mcL Normal 0.1 - 1.4 10^3/mcL AO Workflow SS Monocytes/100 WBC (Bld) 7.3 % Normal 2.0 - 13.0 % AO Workflow SS Neutrophils (Bld) [#/Vol] 9.7 103/mcL High 2.3 - 8.1 10^3/mcL AO Workflow SS Neutrophils/100 WBC (Bld) 81.1 % High 50.0 - 75.0 % AO Workflow SS Platelet mean volume (Bld) [Entitic vol] 7.1 fL Normal 6.4 - 10.5 fL AO Workflow SS Platelets (Bld) [#/Vol] 198 103/mcL Normal 150 - 450 10^3/mcL AO Workflow SS Potassium [Moles/Vol] 3.3 mmol/L Low 3.5 - 5.1 mmol/L AO ADM SS Protein [Mass/Vol] 7.5 G/dL Normal 6.4 - 8.2 G/dL AO ADM SS RBC (Bld) [#/Vol] 4.98 106/mcL Normal 4.50 - 6.0 0 10^6/mcL AO Workflow SS Sodium [Moles/Vol] 140 mmol/L Normal 136 - 145 mmol/L AO ADM SS Troponin I.cardiac DL <= 0.01 ng/mL [Mass/Vol] 10 ng/L Normal 0 - 76 ng/L AO ADM SS Comment on above: Interpretive Data: H igh Sensitive Troponin I Reference Ranges: Female: 0-51 ng/L Male: 0-76 ng/L Testing performed on [employer] using a homogeneous sandwich chemiluminescent immunoassay based on [employer] technology. Urea nitrogen [Mass/Vol] 22 mg/dL High 7 - 18 mg/dL AO ADM SS Urea nitrogen/Creatinine [Mass ratio] 24 ratio Normal 7 - 27 ratio AO ADM SS WBC (Bld) [#/Vol] 12.0 103/mcL High 4.5 - 10.8 10^3/mcL AO Workflow SS LABORATORYOrdered By: Brigitte Coronel on 12-03-2024 Monocyte distribution width Auto (Bld) [Entitic vol] Not Performed 1 (12/03/24 2:16 AM) Normal 0.00 - 20.00 AO Hematology S Comment on above: Result Comment: TOM testing unable to be performed on [id number] instrumentation. LIPon 12-03-2024 Lipase Level 27 U/L Normal 16-77 [facility] Comment on above: Performed By: #### DRU Villalobos, TERELL, W, ADIFF, GFR, CBC, CMP, ANEU ####[facility] [address] [place], [place] [address] MGon 12-03-2024 Magnesium [Mass/Vol] 1.8 mg/dL Normal 1.8-2.4 [facility] Comment on above: Performed By: #### DRU Villalobos, TERELL, W, ADIFF, GFR, CBC, CMP, ANEU ####[address] [place], [place] [address] TROPHSon 12-03-2024 High Sensitivity Troponin I 8 ng/L Normal 0-76 [facility] Comment on above: Result Comment: High Sensitive Troponin I Reference Ranges: Female: 0-51 ng/L Male: 0-76 ng/L Testing performed on RTN [employer] using a homogeneous sandwich chemiluminescent immunoassay based on EadBox technology. Performed By: #### [facility] #### Ibrahima [address], [place] [address] High Sensitivity Troponin I 10 ng/L Normal 0-76 [facility] Comment on above: Result Comment: High Sensitive Troponin I Reference Ranges: Female: 0-51 ng/L Male: 0-76 ng/L Testing performed on Dimension EXL using a homogeneous sandwich chemiluminescent immunoassay based on EadBox technology. Performed By: #### M G, TROPHS, LIP, MDW, ADIFF, GFR, CBC, CMP, ANEU ####Ibrahima [address] [place], [place] [address] XR CHEST 1 VIEWon 12-03-2024 XR CHEST 1 VIEW ORIGINAL EXAMINATION: ONE XRAY VIEW OF THE CHEST 12/03/2024 3:14 am COMPARISON: Chest x-ray on 04/09/2019. HISTORY: ORDERING SYSTEM PROVIDED HISTORY: Reason for Exam: chest pain FINDINGS: The heart size and mediastinal contours are normal. There is no lung infiltrate or edema. No pneumothorax or pleural fluid is present. Degenerative changes are present in the shoulders and thoracic spine. There is no acute skeletal abnormality. IMPRESSION: No acute cardiopulmonary process. Interpreted by: Miko Sequeira MD Preliminary Report By: Miko Sequeira MD Electronically signed By Miko Sequeira MD Dictated Date: 12/03/2024 3:19:06 AM Prelim Date: 12/03/2024 3:20:52 AM Sign Date: 12/03/2024 3:20:52 AM Ordering Provider: AUDRA DIAZ Interpreted by: Miko Sequeira MD Preliminary Report By: Miko Sequeira MD Electronically signed By Miko Sequeira MD Dictated Date: 12/03/2024 3:19:06 AM Prelim Date: 12/03/2024 3:20:52 AM Sign Date: 12/03/2024 3:20:52 AM Ordering Provider: AUDRA DIAZ [facility] 12 Lead EKGon 12-01-2024 12 Lead EKG [facility] Services [address] [place] [address] 12 Lead EKG 12/01/24 0800 MR#: [id number] Acct: [id number] Name: CYNDEE HAWKINS Rep #: [id number] : 1960 64 From: Arben Brooks MD Attending Dr: Dr. Denilson Harris DO Status: DEP ER Ordering Dr: Denilson Harris DO Date: 12/01/24 Location: ED Sex: M C Admitted: Test Reason : Blood Pressure : */* mmHG Vent. Rate : 106 BPM Atrial Rate : 106 BPM P-R Int : 166 ms QRS Dur : 136 ms QT Int : 386 ms P-R-T Axes : -5 35 -15 degrees QTcB Int : 512 ms Sinus tachycardia Right bundle branch block Artifact Confirmed by WALKER VALADEZ, ARBEN ([id number]), editorial assistant SHAZIA CHOW ([id number]) on 12/28/2024 2:13:39 PM Referred By: Denise Garcia Confirmed By: ARBEN BROOKS MD 12/28/24 1413 Date Arben Brooks MD CC: Dr. Denise Garcia MD; Dr. eDnilson Harirs DO; Dr. Anna Vega DO Signed Normal [facility] Basic Metabolic Profile (BMP )on 12-01-2024 BUN/CRE 26.1 RATIO High 10-20 [facility] Comment on above: Order Comment: REDRA W. PREVIOUS SPECIMEN REJECTED DUE TO HEMOLYSIS. 12/01/24 0840 Anahi Tan. Performed By: #### L 500.2500, L501.4021 #### [facility] Laboratory [address] [place], [place], [address] Calcium [Mass/Vol] 9.4 mg/dL Normal 7.6-11.0 [facility] Comment on above: Order Comment: REDRA W. PREVIOUS SPECIMEN REJECTED DUE TO HEMOLYSIS. 12/01/24 0840 Anahi Tan. Performed By: #### L 500.2500, L501.4021 #### [facility] [address] [place], [address] Chloride [Moles/Vol] 105 mmol/L Normal 98-108 [facility] Comment on above: Order Comment: REDRA W. PREVIOUS SPECIMEN REJECTED DUE TO HEMOLYSIS. 12/01/2440 Anahi Tan. Performed By: #### L 500.2500, L501.4021 #### [facility] [address] [place], [address] CO2 [Moles/Vol] 23.3 mmol/L Normal 21.0-32.0 [facility] Comment on above: Order Comment: REDRA W. PREVIOUS SPECIMEN REJECTED DUE TO HEMOLYSIS. 12/01/2440 Anahi Tan. Performed By: #### L 500.2500, L501.4021 #### [facility] [address] [place], [address] Creatinine [Mass/Vol] 0.97 mg/dL Normal 0.70-1.20 [facility] Comment on above: Order Comment: REDRA W. PREVIOUS SPECIMEN REJECTED DUE TO HEMOLYSIS. 12/01/2440 Anahi Tan. Performed By: #### L 500.2500, L501.4021 #### [facility] [address] [place], [address] ECRCL 90.53 ml/min Normal 50-250 [facility] Comment on above: Order Comment: REDRA W. PREVIOUS SPECIMEN REJECTED DUE TO HEMOLYSIS. 12/01/2440 Anahi Tan. Performed By: #### L 500.2500, L501.4021 #### [facility] [address] [place], [address] GAP 13 Normal 5-15 [facility] Comment on above: Order Comment: REDRA W. PREVIOUS SPECIMEN REJECTED DUE TO HEMOLYSIS. 12/01/2440 Anahi Tan. Performed By: #### L 500.2500, L501.4021 #### [facility] [address] [place], [address] GFR/1.73 sq M.predicted among non-blacks MDRD (S/P/Bld) [Vol rate/Area] 87 mL/min/{1.73_m2} Normal >60 [facility] Comment on above: Order Comment: REDRA W. PREVIOUS SPECIMEN REJECTED DUE TO HEMOLYSIS. 12/01/2440 Anahi Tan. Result Comment: mL/m in/1.73m2 CKD-EPI Creatinine Equation (2020) Performed By: #### L 500.2500, L501.4021 #### [facility] [address] [place], [address] Glucose [Mass/Vol] 121 mg/dL High 70-99 [facility] Comment on above: Order Comment: REDRA W. PREVIOUS SPECIMEN REJECTED DUE TO HEMOLYSIS. 12/01/2440 Anahi Tan. Performed By: #### L 500.2500, L501.4021 #### [facility] [address] [place], [address] Potassium [Moles/Vol] 3.7 mmol/L Normal 3.3-5.1 [facility] Comment on above: Order Comment: REDRA W. PREVIOUS SPECIMEN REJECTED DUE TO HEMOLYSIS. 12/01/2440 Anahi Tan. Performed By: #### L 500.2500, L501.4021 #### [facility] [address] [place], [address] Sodium [Moles/Vol] 141 mmol/L Normal 133-145 [facility] Comment on above: Order Comment: REDRA W. PREVIOUS SPECIMEN REJECTED DUE TO HEMOLYSIS. 12/01/2440 Anahi Tan. Performed By: #### L 500.2500, L501.4021 #### [facility] [address] [place], [address] Urea nitrogen [Mass/Vol] 25 mg/dL High 4-19 [facility] Comment on above: Order Comment: REDRA W. PREVIOUS SPECIMEN REJECTED DUE TO HEMOLYSIS. 12/01/2440 Anahi Tan. Performed By: #### L 500.2500, L501.4021 #### [facility] [address] [place], [address] BUN Normal 4-19 [facility] Comment on above: Result Comment: This specimen has been REJECTED due to Laboratory criteria: Hemolyzed. KRISTIN has been notified of need of recollection. 12/01/24838 Anahi Tan Performed By: #### L 300.8000, L100.0100, L300.4310, L500.2500, L300.3900 #### [facility] [address] [place], [address] BUN/CRE Normal 10-20 [facility] Comment on above: Result Comment: This specimen has been REJECTED due to Laboratory criteria: Hemolyzed. KRISTIN has been notified of need of recollection. 12/01/2439 Anahi Tan Performed By: #### L 300.8000, L100.0100, L300.4310, L500.2500, L300.3900 #### [facility] [address] [place], [address] Calcium Normal 7.6-11.0 [facility] Comment on above: Result Comment: This specimen has been REJECTED due to Laboratory criteria: Hemolyzed. KRISTIN has been notified of need of recollection. 12/01/2439 Anahi Tan Performed By: #### L 300.8000, L100.0100, L300.4310, L500.2500, L300.3900 #### [facility] [address] [place], [address] CL Normal 98-108 [facility] Comment on above: Result Comment: This specimen has been REJECTED due to Laboratory criteria: Hemolyzed. KRISTIN has been notified of need of recollection. 12/01/24838 Anahi Tan Performed By: #### L 300.8000, L100.0100, L300.4310, L500.2500, L300.3900 #### [facility] [address] [place], [address] CO2 Normal 21.0-32.0 [facility] Comment on above: Result Comment: This specimen has been REJECTED due to Laboratory criteria: Hemolyzed. KRISTIN has been notified of need of recollection. 12/01/24838 Anahi Tan Performed By: #### L 300.8000, L100.0100, L300.4310, L500.2500, L300.3900 #### [facility] [address] [place], [address] CREAT,SERUM Normal 0.70-1.20 [facility] Comment on above: Result Comment: This specimen has been REJECTED due to Laboratory criteria: Hemolyzed. KRISTIN has been notified of need of recollection. 12/01/24838 Anahi Tan Performed By: #### L 300.8000, L100.0100, L300.4310, L500.2500, L300.3900 #### [facility] [address] [place], [address] eGFR Normal >60 [facility] Comment on above: Result Comment: This specimen has been REJECTED due to Laboratory criteria: Hemolyzed. KRISTIN has been notified of need of recollection. 12/01/24838 Anahi Tan Performed By: #### L 300.8000, L100.0100, L300.4310, L500.2500, L300.3900 #### [facility] [address] [place], [address] GAP Normal 5-15 [facility] Comment on above: Result Comment: This specimen has been REJECTED due to Laboratory criteria: Hemolyzed. KRISTIN has been notified of need of recollection. 12/01/2439 Anahi Tan Performed By: #### L 300.8000, L100.0100, L300.4310, L500.2500, L300.3900 #### [facility] [address] [place], [address] GLU Normal 70-99 [facility] Comment on above: Result Comment: This specimen has been REJECTED due to Laboratory criteria: Hemolyzed. KRISTIN has been notified of need of recollection. 12/01/24 0839 Anahi Tan Performed By: #### L 300.8000, L100.0100, L300.4310, L500.2500, L300.3900 #### [facility] [address] [place], [address] Potassium Normal 3.3-5.1 [facility] Comment on above: Result Comment: This specimen has been REJECTED due to Laboratory criteria: Hemolyzed. KRISTIN has been notified of need of recollection. 12/01/24 0839 Anahi Tan Performed By: #### L 300.8000, L100.0100, L300.4310, L500.2500, L300.3900 #### [facility] [address] [place], [address] Basic Metabolic Profile (BMP) Normal 133-145 [facility] Comment on above: Result Comment: This specimen has been REJECTED due to Laboratory criteria: Hemolyzed. KRISTIN has been notified of need of recollection. 12/01/24 0839 Anahi Tan Performed By: #### L 300.8000, L100.0100, L300.4310, L500.2500, L300.3900 #### [facility] [address] [place], [address] CBC W/Diff, Automatedon 06-2 Absolute Lymph 0.82 X10 3/uL Low 0.83-4.51 [facility] Comment on above: Performed By: #### L 100.0100 #### [facility] [address] [place], [address] Absolute Neut 8.4 X10 3/uL High 2.0-7.7 [facility] Comment on above: Performed By: #### L 100.0100 #### [facility] [address] [place], [address] Basophils/100 WBC (Bld) 0.3 % Normal 0-1 [facility] Comment on above: Performed By: #### L 100.0100 #### [facility] [address] [place], [address] Eosinophils/100 WBC (Bld) 0.3 % Normal 0-5 [facility] Comment on above: Performed By: #### L 100.0100 #### [facility] [address] [place], [address] Erythrocyte distribution width (RBC) [Ratio] 12.4 % Normal 11.6-14.6 [facility] Comment on above: Performed By: #### L 100.0100 #### [facility] [address] [place], [address] Hematocrit (Bld) [Volume fraction] 44.7 % Normal 40-54 [facility] Comment on above: Performed By: #### L 100.0100 #### [facility] [address] [place], [address] Hemoglobin (Bld) [Mass/Vol] 15.3 g/dL Normal 13.0-16.5 [facility] Comment on above: Performed By: #### L 100.0100 #### [facility] [address] [place], [address] IG% 0.300 Normal 0.0-0.9 [facility] Comment on above: Result Comment: IG% - Immature Granulocytes (promyelocytes, myelocytes and metamyelocytes) > 1% indicates that a LEFT SHIFT is Present. Performed By: #### L 100.0100 #### [facility] [address] [place], [address] Lymphocytes/100 WBC (Bld) 8.0 % Low 19-41 [facility] Comment on above: Performed By: #### L 100.0100 #### [facility] [address] [place], [address] MCH (RBC) [Entitic mass] 32.2 pg High 27.0-32.0 [facility] Comment on above: Performed By: #### L 100.0100 #### [facility] [address] [place], [address] MCHC (RBC) [Mass/Vol] 34.2 g/dL Normal 32-36 [facility] Comment on above: Performed By: #### L 100.0100 #### [facility] [address] [place], [address] MCV (RBC) [Entitic vol] 94.1 fL High 80-94 [facility] Comment on above: Performed By: #### L 100.0100 #### [facility] [address] [place], [address] Monocytes/100 WBC (Bld) 10.1 % High 0-10 [facility] Comment on above: Performed By: #### L 100.0100 #### [facility] [address] [place], [address] Neutrophils/100 WBC (Bld) 81.0 % High 47-70 [facility] Comment on above: Performed By: #### L 100.0100 #### [facility] [address] [place], [address] Nucleated RBC (Bld) [#/Vol] 0 10*3/uL Normal 0-5 [facility] Comment on above: Performed By: #### L 100.0100 #### [facility] [address] [place], [address] Platelet mean volume (Bld) [Entitic vol] 8.8 fL Normal 6.2-12.0 [facility] Comment on above: Performed By: #### L 100.0100 #### [facility] [address] [place], [address] Platelets (Bld) [#/Vol] 209 10*3/uL Normal 150-450 [facility] Comment on above: Performed By: #### L 100.0100 #### [facility] [address] [place], [address] RBC (Bld) [#/Vol] 4.75 10*6/uL Normal 4.6-6.2 [facility] Comment on above: Performed By: #### L 100.0100 #### [facility] [address] [place], [address] RDW SD 43.2 fl Normal 35.1-43.9 [facility] Comment on above: Performed By: #### L 100.0100 #### [facility] [address] [place], [address] WBC (Bld) [#/Vol] 10.3 10*3/uL Normal 4.4-11.0 [facility] Comment on above: Performed By: #### L 100.0100 #### [facility] [address] [place], [address] Absolute Neut Normal 2.0-7.7 [facility] Comment on above: Result Comment: CLOT ALISHA, SPOKE WITH HOLLY Performed By: #### L 300.8000, L100.0100, L300.4310, L500.2500, L300.3900 ####[facility] [address] [place], [address] HCT Normal 40-54 [facility] Comment on above: Result Comment: CLOT ALISHA, SPOKE WITH HOLLY Performed By: #### L 300.8000, L100.0100, L300.4310, L500.2500, L300.3900 ####[facility] [address] [place], [address] HGB Normal 13.0-16.5 [facility] Comment on above: Result Comment: NORM SALDANA, SPOKE WITH HOLLY Performed By: #### L 300.8000, L100.0100, L300.4310, L500.2500, L300.3900 ####[facility] [address] [place], [address] MCH Normal 27.0-32.0 [facility] Comment on above: Result Comment: CLOT ALISHA, SPOKE WITH HOLLY Performed By: #### L 300.8000, L100.0100, L300.4310, L500.2500, L300.3900 ####[facility] [address] [place], [address] MCHC Normal 32-36 [facility] Comment on above: Result Comment: CLOT ALISHA, SPOKE WITH HOLLY Performed By: #### L 300.8000, L100.0100, L300.4310, L500.2500, L300.3900 ####[facility] [address] [place], [address] MCV Normal 80-94 [facility] Comment on above: Result Comment: CLOT ALISHA, SPOKE WITH HOLLY Performed By: #### L 300.8000, L100.0100, L300.4310, L500.2500, L300.3900 ####[facility] [address] [place], [address] NEUT% Normal 47-70 [facility] Comment on above: Result Comment: CLOT ALISHA, SPOKE WITH HOLLY Performed By: #### L 300.8000, L100.0100, L300.4310, L500.2500, L300.3900 ####[facility] [address] [place], [address] PLT Normal 150-450 [facility] Comment on above: Result Comment: CLOT ALISHA, SPOKE WITH HOLLY Performed By: #### L 300.8000, L100.0100, L300.4310, L500.2500, L300.3900 ####[facility] [address] [place], [address] RBC Normal 4.6-6.2 [facility] Comment on above: Result Comment: NORM SALDANA, SPOKE WITH HOLLY Performed By: #### L 300.8000, L100.0100, L300.4310, L500.2500, L300.3900 ####[facility] [address] [place], [address] RDW CV Normal 11.6-14.6 [facility] Comment on above: Result Comment: NORM SALDANA, SPOKE WITH HOLLY Performed By: #### L 300.8000, L100.0100, L300.4310, L500.2500, L300.3900 ####[facility] [address] [place], [address] RDW SD Normal 35.1-43.9 [facility] Comment on above: Result Comment: NORM SALDANA, SPOKE WITH HOLLY Performed By: #### L 300.8000, L100.0100, L300.4310, L500.2500, L300.3900 ####[facility] [address] [place], [address] WBC Normal 4.4-11.0 [facility] Comment on above: Result Comment: NORM SALDANA, SPOKE WITH HOLLY Performed By: #### L 300.8000, L100.0100, L300.4310, L500.2500, L300.3900 ####[facility] [address] [place], [address] Chest 1 View (Portable)on Chest 1 View (Portable) [facility] Imaging Services [address] [place] [address] Chest 1 View (Portable) MR#: [id number] Acct: [id number] Name: CYNDEE HAWKINS Rep #: [id number] : 1960 M 64 From: Giorgi Grant PCP: Dr. Anna Vega, DO Status: REG ER Study: Chest 1 View (Portable) Date of Exam: 12/01/24 Exam# [id number] Ordering Dr: Denilson Harris DO PROCEDURE: CHEST 1 VIEW (PORTABLE) 12/01/2024 REASON FOR EXAM: CHEST PAIN TECHNIQUE: Frontal view of the chest. COMPARISON: None RAD/Chest 1 View (Portable) IMPRESSION: Stent overlies the lower thorax/upper abdomen. Mild pulmonary vascular congestion. No focal consolidation. Bibasilar subsegmental atelectasis. Trace left base effusion. No pneumothorax. Cardiac silhouette is unremarkable. Reading Location: [facility] CC: Dr. Denilson Harris DO; Dr. Anna Vega DO [employer]: Signed Normal [facility] D-Dimer Quantitative (DVT/PE )on 12-01-2024 D-DIMER QUANT 0.34 FEU/ug/m Normal 0.27-0.49 [facility] Comment on above: Result Comment: NORM AL D-Dimer level (<0.50) indicates no DVT or PE. Performed By: #### L 300.8000, L100.0100, L300.4310, L500.2500, L300.3900 ####[facility] [address] [facility] [place], [address] Emergency Department Summary on 12-01-2024 Emergency Department Summary [facility] Medical Records Department [address] [place] [address] Emergency Department Summary 12/01/24 MR#: [id number] Acct: [id number] Name: CYNDEE HAWKINS Rep #: [id number] : 1960 64 From: Denilson Harris DO PCP: Dr. Anna Vega DO Status:DEP ER Location: ED HPI History of Present Illness Chief Complaint: Shortness of Breath Onset/Context/Timing Onset: Today Activity at onset: sleep Timing: Continuous Quality: Positive for Aching and Burning Location: Substernal Worsened By: Nothing Relieved By: Nothing Associated Symptoms: Positive for Diaphoresis and Dyspnea; Negative for Cough or Fever Narrative Narrative: Patient presents with shortness of breath and chest pain that began earlier this morning. Patient had esophageal stent placed yesterday for difficulty swallowing. Patient states the pain is over the substernal area. Patient states nothing makes it better nothing makes it worse. Patient was noted to be sweaty on arrival to the emergency department. Patient denies any new nausea or vomiting. Patient was having nausea and vomiting prior to the procedure yesterday. Patient denies any fevers or chills. PFSH PFS Medical History Autism Cancer History of Mohs [...] Rx Held on 11/29/24. Instructions: DIFFICULTLY SWALLOWING sertraline 100 mg tablet 200 mg PO DAILY 11/29/24 Unknown H istory Allergy/AdvReac Type Severity Reaction Status Date / Time No Known Allergies Allergy Verified 11/30/24 14:11 Family History Other Arthritis Bowel disease Colon [...] activity do you participate in: walking ROS ROS ED Constitutional Constitutional ED: Reports sweats; Denies chills or fever(s) Eyes Eyes: Denies change in vision or diplopia ENT ENT ED: Denies rhinorrhea or sore throat Cardiovascular Cardiovascular: Reports chest pain Respiratory/Chest Respiratory/Chest: Reports dyspnea; Denies cough Gastrointestinal Gastrointestinal: Denies nausea or vomiting Musculoskeletal Musculoskeletal: Denies back pain or neck pain Integumentary Denies abscess or rash Allergic/Immunologic Allergic/Immunologic ED: Denies mouth swelling or urticaria EXAM Physical Exam Const Vital Signs: 12/01/24 07:50 12/01/24 07:59 12/01/24 08:07 Temperature 97.6 F L 96.4 F L Temperature Source Oral Pulse Rate 110 H 110 H Respiratory Rate 20 H 24 H Respiratory Effort Short of Breath Respiratory Depth Normal Respiratory Pattern Normal Blood Pressure 139/97 H 156/92 H Blood Pressure Mean 111 113 Pulse Ox 97 98 Oxygen Delivery Method Room Air Room Air 12/01/24 08:09 12/01/24 08:22 12/01/24 08:49 Temperature Temperature Source Pulse Rate 105 H 98 Respiratory Rate 26 H Respiratory Effort Respiratory Depth Respiratory Pattern Blood Pressure 156/92 H 151/94 H 134/93 H Blood Pressure Mean 106 Pulse Ox 100 Oxygen Delivery Method Room Air 12/01/24 09:00 12/01/24 10:00 12/01/24 11:00 Temperature Temperature Source Pulse Rate 99 97 93 Respiratory Rate 21 H 24 H 24 H Respiratory Effort Respiratory Depth Respiratory Pattern Blood Pressure 133/83 H 133/96 H Blood Pressure Mean 99 108 Pulse Ox Oxygen Delivery Method 12/01/24 12:41 Temperature 98 F Temperature Source Pulse Rate 73 Respiratory Rate 20 H Respiratory Effort Respiratory Depth Respiratory Pattern Blood Pressure 138/94 H Blood Pressure Mean 108 Pulse Ox 97 Oxygen Delivery Method Positive well nourished and well developed (more content not included)... Normal [facility] L499.0042on 12-01-2024 Trop T High Sen 11 ng/L Normal <=22 [facility] Comment on above: Performed By: #### L 499.0042 ####[facility] [address] [place], [address] L499.0043on 12-01-2024 Trop T High Sen Normal <=22 [facility] Comment on above: Result Comment: [facility] DISCHARGED Performed By: #### L 499.0043 ####[facility] [address] [place], [place], [address] L501.4021on 12-01-2024 Trop T High Sen 12 ng/L Normal <=22 [facility] Comment on above: Order Comment: REDRA W. PREVIOUS SPECIMEN REJECTED DUE TO HEMOLYSIS. 12/01/24 0840 Anahi Tan. Performed By: #### L 500.2500, L501.4021 #### [facility] [address] [place], [address] Partial Thromboplast Timeon 12-01-2024 aPTT Coag (Bld) [Time] 26.6 s Normal 24.1-36.2 [facility] Comment on above: Performed By: #### L 300.8000, L100.0100, L300.4310, L500.2500, L300.3900 ####[facility] [address] [place], [address] Prothrombin Time w/INRon INR Coag (PPP) [Relative time] 1.1 {INR} Normal [facility] Comment on above: Performed By: #### L 300.8000, L100.0100, L300.4310, L500.2500, L300.3900 ####[facility] [address] [place], [address] PT Coag (PPP) [Time] 14.5 s Normal 11.7-14.9 [facility] Comment on above: Performed By: #### L 300.8000, L100.0100, L300.4310, L500.2500, L300.3900 ####[facility] [address] [place], [address] EGD Reporton 11-30-2024 EGD Report [facility] Medical Records Department [address] [place] [address] EGD Report MR#: [id number] Acct: [id number] Name: CYNDEE HAWKINS Rep #: [id number] : 1960 64 From: Car Woodson DO PCP: Dr. Anna Vega, DO [place] [facility] [place] Name: Cyndee Hawkins Procedure Date: 11/30/2024 3:06 PM Date of : 1960 Age: 64 Procedure: Upper GI endoscopy Indications: Iron deficiency anemia, Dysphagia Providers: Car Woodson DO Referring MD: Anna Vega Do Medicines: Monitored Anesthesia Care Patient Profile: This is a 64 year old male. Refer to note in patient chart for documentation of history and physical. Patient has symptoms of dysphagia with both liquids and solids. The symptoms first began September. Complications: No immediate complications. Procedure: Pre-Anesthesia Assessment: - Prior to the procedure, a History and Physical was performed, and patient medications and allergies were reviewed. The patient is competent. The risks and benefits of the procedure and the sedation options and risks were discussed with the patient. All questions were answered and informed consent was obtained. Patient identification and proposed procedure were verified by the physician in the pre-procedure area. Mental Status Examination: alert and oriented. Airway Examination: normal oropharyngeal airway and neck mobility. Respiratory Examination: clear to auscultation. CV Examination: normal. Prophylactic Antibiotics: The patient does not require prophylactic antibiotics. Prior Anticoagulants: The patient has taken no anticoagulant or antiplatelet agents except for NSAID medication. ASA Grade Assessment: II - A patient with mild systemic disease. After reviewing the risks and benefits, the patient was deemed in satisfactory condition to undergo the procedure. The anesthesia plan was to use monitored anesthesia care (MAC). Immediately prior to administration of medications, the patient was re-assessed for adequacy to receive sedatives. The heart rate, respiratory rate, oxygen saturations, blood pressure, adequacy of pulmonary ventilation, and response to care were monitored throughout the procedure. The physical status of the patient was re-assessed after the procedure. After obtaining informed consent, the endoscope was passed under direct vision. Throughout the procedure, the patient's blood pressure, pulse, and oxygen saturations were monitored continuously. The Endoscope was introduced through the mouth, and advanced to the second part of duodenum. The upper GI endoscopy was accomplished without difficulty. The patient tolerated the procedure well. Scope In: 3:28:43 PM Scope Out: 3:58:48 PM Total Procedure Duration Time 0 hours 30 minutes 5 seconds Findings: A large, fungating mass with bleeding and no stigmata of recent bleeding was found in the lower third of the esophagus, 36 cm from the incisors. The mass was completely obstructing and circumferential. Biopsies were taken with a cold forceps for histology. Verification of patient identification for the specimen was done. Estimated blood loss was minimal. This was stented with an 18 mm x 12.3 cm WallFlex covered stent under fluoroscopic guidance, proximal margin at 35 cm and distal margin at 44 cm from the incisors. No gross lesions were noted in the entire examined stomach. No gross lesions were noted in the second portion of the duodenum. 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 Biopsied. Prosthesis placed. - No gross lesions in the entire stomach. - No gross lesions in the second portion of the duodenum. Recommendation: - Discharge patient to home. - Resume previous diet. - Continue present medications. - Await pathology results. Procedure Code(s): --- Professional --- 42477, Esophagogastroduodenoscopy, flexible, transoral; with placement of endoscopic stent (includes pre- and post-dilation and guide wire passage, when performed) 51572, 59,51, Esophagogastroduodenoscopy, flexible, transoral; with biopsy, single or multiple 81531, Intraluminal dilation of strictures and/or obstructions (eg, esophagus), radiological supervision and interpretation CPT copyright 2021 [employer]. All rights reserved. The codes documented in this report are preliminary and upon dental office receptionist review may be revised to meet current compliance requirements. Car Woodson DO 11/30/2024 4:11:13 PM This report has been signed electronically. Number of Addenda: 0 Note Initiated On: 11/30/2024 3:06 PM 11/30/24 1611 Date Car Conteh Signature: Date (if indicated) CC: Dr. Cordero (more content not included)... Normal [facility] EGD Report [facility] Medical Records Department [address] [place] [address] EGD Report MR#: [id number] Acct: [id number] Name: CYNDEE HAWKINS Rep #: [id number] : 1960 64 From: Car Woodson DO PCP: Dr. Anna Vega DO [place] [facility] [place] Name: Cyndee Hawkins Procedure Date: 11/30/2024 6:37 AM Date of : 1960 Age: 64 Procedure: Upper GI endoscopy Indications: Dysphagia Providers: Car Woodson DO Referring MD: Anna Vega Do Medicines: Monitored Anesthesia Care Patient Profile: This is a 64 year old male. Refer to note in patient chart for documentation of history and physical. Patient has symptoms of dysphagia with both liquids and solids. Complications: No immediate complications. Procedure: Pre-Anesthesia Assessment: - Prior to the procedure, a History and Physical was performed, and patient medications and allergies were reviewed. The patient is competent. The risks and benefits of the procedure and the sedation options and risks were discussed with the patient. All questions were answered and informed consent was obtained. Patient identification and proposed procedure were verified by the physician in the pre-procedure area. Mental Status Examination: alert and oriented. Airway Examination: normal oropharyngeal airway and neck mobility. Respiratory Examination: clear to auscultation. CV Examination: normal. Prophylactic Antibiotics: The patient does not require prophylactic antibiotics. Prior Anticoagulants: The patient has taken no anticoagulant or antiplatelet agents except for NSAID medication. ASA Grade Assessment: II - A patient with mild systemic disease. After reviewing the risks and benefits, the patient was deemed in satisfactory condition to undergo the procedure. The anesthesia plan was to use monitored anesthesia care (MAC). Immediately prior to administration of medications, the patient was re-assessed for adequacy to receive sedatives. The heart rate, respiratory rate, oxygen saturations, blood pressure, adequacy of pulmonary ventilation, and response to care were monitored throughout the procedure. The physical status of the patient was re-assessed after the procedure. After obtaining informed consent, the endoscope was passed under direct vision. Throughout the procedure, the patient's blood pressure, pulse, and oxygen saturations were monitored continuously. The Endoscope was introduced through the mouth, and advanced to the second part of duodenum. The upper GI endoscopy was accomplished without difficulty. The patient tolerated the procedure well. Scope In: 7:04:21 AM Scope Out: 7:15:22 AM Total Procedure Duration Time 0 hours 11 minutes 1 second Findings: A large, ulcerating mass with bleeding and no stigmata of recent bleeding was found in the lower third of the esophagus, 36 cm from the incisors. The mass was completely obstructing and circumferential. Biopsies were taken with a cold forceps for histology. Verification of patient identification for the specimen was done. Estimated blood loss was minimal. No gross lesions were noted in the entire examined stomach. No gross lesions were noted in the duodenal bulb. 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 Biopsied. - No gross lesions in the entire stomach. - No gross lesions in the duodenal bulb. Recommendation: - Discharge patient to home. - Resume previous diet. - Continue present medications. - Await pathology results. Procedure Code(s): --- Professional --- 41067, Esophagogastroduodenoscopy, flexible, transoral; with biopsy, single or multiple CPT copyright 2021 [employer]. All rights reserved. The codes documented in this report are preliminary and upon dental office receptionist review may be revised to meet current compliance requirements. Car Woodson DO 11/30/2024 7:28:50 AM This report has been signed electronically. Number of Addenda: 0 Note Initiated On: 11/30/2024 6:37 AM 11/30/24 0729 Date Car Woodson DO Cosigner Signature: Date (if indicated) CC: Dr. Anna Vega DO; Car Woodson DO Date Dictated: 11/30/24 0637 Date Transcribed: [employer] Sports Coach: SHAYY Signed Normal [facility] ERCP Biliary/Pancreason 06-2 ERCP Biliary/Pancreas [facility] Imaging Services [address] [place] [id number] ERCP Biliary/Pancreas MR#: [id number] Acct: [id number] Name: CYNDEE HAWKINS Rep #: [id number] : 1960 [place] Red From: Cyndee Grant PCP: Dr. Anna Vega DO Status: [facility] Study: ERCP Biliary/Pancreas Date of Exam: 11/30/24 Exam# [id number] Ordering Dr: Car Woodson DO PROCEDURE: ERCP BILIARY/PANCREAS; O.R. FLUORO FOR C-ARM 11/30/2024 REASON FOR EXAM: STENT TECHNIQUE: Fluoroscopy for ERCP. 3 fluoroscopic images were also obtained. COMPARISON: None. RAD/ERCP Biliary/Pancreas IMPRESSION: Fluoroscopy for ERCP. 3 fluoroscopic images were also obtained. Reading Location: [place] [address] CC: Dr. Anna Vega DO; Car Woodson DO [employer] Coach: Signed Normal [facility] Frozen Section (charge)on Frozen Section (charge) -------- Patient Age/Sex Location Account Attending Physician -------- CYNDEE HAWKINS 64/M EN [id number] Car Woodson DO -------- Specimen: [id number] Received: 11/30/24 Status: ELBERT Romeo Num: [id number] Spec Type: Mass Subm Dr: Car Woodson DO HEADER OPERATION: EGD and biopsy PRE-OP DIAGNOSIS: Dysphagia, heartburn TISSUE SUBMITTED: A- Esophageal mass for frozen section -------- FROZEN SECTION DIAGNOSIS Esophageal mass: Adenocarcinoma. Diagnosis rendered by Naomi Loera MD at 3:45 pm on 11/30/24. MICROSCOPIC DIAGNOSIS A. Esophagus, mass, biopsy: * Invasive adenocarcinoma. MICROSCOPIC DESCRIPTION Slides are reviewed. GROSS DESCRIPTION Received fresh for frozen section diagnosis labeled the patient's name and date of . Designated as esophageal mass for frozen section are multiple ferro tissue fragments averaging 0.3 cm. Touch preparations are made. The specimen is entirely submitted for frozen section diagnosis and subsequently placed in cassette A1 for permanent sections. [place] 11/30/2024 CPT:94220,81132 -------- Patient Age/Sex Location Account Attending Physician -------- CYNDEE HAWKINS 64/M EN [id number] Car Woodson DO -------- Signed (signature on file) Dr. Naomi Loera MD 12/04/241819 -------- Normal [facility] Comment on above: Performed By: #### P FSC ####[facility] [address] [facility] [place], [address] MR/POSTOP.ANEon 11-30-2024 MR/POSTOP.[facility] Medical Records Department [address] [place] [address] Anesthesia Postop Eval I 11/30/24 1608 MR#: [id number] Acct: [id number] Name: CYNDEE HAWKINS Rep #: [id number] : 1960 64 From: Caitlin Mosquera CRNA PCP: Dr. Anna Vega, DO Status:REG [facility] Y Race: C Location: EN Anesthesia: Postop Eval I Current Vital Signs Temperature: 36 F Pulse Rate: 89 Blood Pressure: 147/93 Respiratory Rate: 14 Pulse Ox: 96 Assessment Airway patent: Yes Spontaneous unlabored respirations: Yes nausea: No Vomiting: No Anesthesia Complication: No Fluid Hydration Crystalloid volume administer (ml): 900 Total IV fluid infused: 900 Progress Note Anesthesia document: Postop Eval 1 completed: Yes 11/30/24 160 Date Caitlin Lunan [facility] Cosigner Signature: Date CC: Signed [facility] MR/POSTOP.[facility] Medical Records Department [address] [place] [address] Anesthesia Postop Eval I 11/30/24723 MR#: [id number] Acct: [id number] Name: CYNDEE HAWKINS Tomi Rep #: [id number] : 1960 64 From: Loreta Weber CRNA PCP: Dr. Anna Vega, DO Status:REG [facility] Y Race: C Location: [place] [address] Anesthesia: Postop Eval I Current Vital Signs Temperature: 96.3 F Pulse Rate: 87 Blood Pressure: 98/60 Respiratory Rate: 20 Pulse Ox: 93 (2LO2) Assessment Airway patent: Yes Spontaneous unlabored respirations: Yes nausea: No Vomiting: No Anesthesia Complication: No Fluid Hydration Crystalloid volume administer (ml): 200 Total IV fluid infused: 200 Progress Note Anesthesia document: Postop Eval 1 completed: Yes 11/30/24724 Date Loreta Sirca [facility] Cosigner Signature: Date CC: Signed [facility] MR/[id number] 11-30-2024 MR/POSTOPAN2 [facility] Medical Records Department [address] [place] [address] Anesthesia Postop Eval II 11/30/24 0903 MR#: [id number] Acct: [id number] Name: CYNDEE HAWKINS Rep #: [id number] : 1960 64 From: Loreta Weber CRNA PCP: Dr. Anna Vega, DO Status:[facility] Y Race: C Location: EN Anesthesia Postop Eval I Sum Postop Eval Completion status Anesthesia document: Postop Eval 1 completed: Yes Anesthesia Postop Eval I Summary Anesthesia Postop Eval I Summary: Anesthesia Postop Eval I: Assessment Summary Airway patent Yes 11/30/24 07:24 [facility] Spontaneous unlabored Yes 11/30/24 07:24 [facility] respirations Mental status nausea No 11/30/24 07:24 [facility] Vomiting No 11/30/24 07:24 [facility] Anesthesia Postop Eval I: Fluid Summary Crystalloid volume administer 200 11/30/24 07:24 [facility] (ml) Colloids volume administered ( ml) Blood Product volume administered (ml) Total IV fluid infused 200 11/30/24 07:24 [facility] Anesthesia Postop Eval I: Summary Notes Anesthesia Complication No 11/30/24 07:24 [facility] Anesthesia Complication Comment: Post-operative progress note Anesthesia: Postop Eval II Evaluation Mental status: Awake Pain Level: 0 nausea: No Vomiting: No 11/30/24902 Date Loreta Weber [facility] Cosigner Signature: Date CC: Signed Normal [facility] O.R. Fluoro for C-Shaheen 06- O.R. Fluoro for C-Arm [facility] Imaging Services [address] [place] [address] O.R. Fluoro for C-Arm MR#: [id number] Acct: [id number] Name: CYNDEE HAWKINS Rep #: [id number] : 1960 M 64 From: Cyndee Grant PCP: Dr. Anna Vega DO Status: [facility] Study: O.R. Fluoro for C-Arm Date of Exam: 11/30/24 Exam# [id number] Ordering Dr: Car Woodson DO PROCEDURE: ERCP BILIARY/PANCREAS; O.R. FLUORO FOR C-ARM 11/30/2024 REASON FOR EXAM: STENT TECHNIQUE: Fluoroscopy for ERCP. 3 fluoroscopic images were also obtained. COMPARISON: None. RAD/O.R. Fluoro for C-Arm IMPRESSION: Fluoroscopy for ERCP. 3 fluoroscopic images were also obtained. Reading Location: [place] [address] CC: Dr. Anna Vega DO; Car Woodson DO [employer] Coach: Signed Normal [facility] Surgery Specimen Level Lea 11-30-2024 Surgery Specimen Level IV -------- Patient Age/Sex Location Account Attending Physician -------- CYNDEE HAWKINS 64/M EN [id number] Car Woodson DO -------- Specimen: [id number] Received: 11/30/24 Status: ELBERT Romeo Num: [id number] Spec Type: EGD BIOPSY Subm Dr: Car Woodson DO HEADER OPERATION: EGD and biopsy PRE-OP DIAGNOSIS: Dysphagia, heartburn TISSUE SUBMITTED: A- Esophageal mass -------- MICROSCOPIC DIAGNOSIS A. Esophagus, mass, biopsy: * Invasive adenocarcinoma. MICROSCOPIC DESCRIPTION Slides are reviewed. GROSS DESCRIPTION A. Received in fixative is one container labeled with the patient's name and designated Esophageal mass. The specimen consists of multiple irregular fragments of light ferro soft tissue that in aggregate measure 1 x 0.8 x 0.2 cm. The specimen is totally submitted in one cassette. Basil 11/30/2024 CPT:39376 -------- ADDENDUM Addendum 1 Entered: 12/11/241239 This addendum is to report the results of the IHC for HER2 and MMR (mismatch repair) proteins (performed at [facility]): HER2: equivocal (2+) All controls show appropriate reactivity. HER2 protein expression in gastric and GE junction adenocarcinomas is evaluated by manual quantitative immunohistochemistry on formalin-fixed, paraffin-embedded tissues, using clone SP3 (rabbit monoclonal, [employer]) on a [place] auto-stainer. Membrane staining of tumor cells is evaluated and graded as follows: 0 (negative), no immunoreactivity (biopsy) or membranous immunoreactivity in < 10% of tumor cells (resection); 1+ (negative)???tumor cell -------- Patient Age/Sex Location Account Attending Physician -------- CYNDEE HAWKINS/Jared EN [id number] Caryohan Woodson, DO -------- ADDENDUM (Continued) cluster (5 cells) with faint immunoreactivity regardless of % cells stained (biopsy) or faint staining in > 10% of tumor cells but only a portion of the membrane is positive (resection); 2+ (equivocal), tumor cell cluster with weak to moderate complete, basolateral or lateral membrane immunoreactivity regardless of % cells (biopsy) or complete, basolateral or lateral membrane staining in >10% of tumor cells (resection);???3+ (positive), tumor cell cluster with strong complete, basolateral or lateral membrane staining regardless of % cells stained (biopsy) or strong complete, basolateral, or lateral membrane staining in > 10% of cells (resection) . Lancet 28:376, 2010, [place] 457:299-307, 2010). All immunohistochemistry, in situ hybridization, and histochemical tests were developed by and are performed at [facility], [address] [facility] [address]. All tests reported here, except those addressing HER2/mando overexpression as a predictive marker, have not been cleared by or approved by the US Food and Drug Administration (FDA). The laboratory is regulated under CLIA as qualified to perform high-complexity testing. The tests are used for clinical purposes. They should not be regarded as investigational or for research Mismatch Repair Protein (MMR) Nuclear Expression by IHC: ??? MLH1: ???Present/intact ??? PMS2: ???Present/intact ??? MSH2: ???Present/intact ??? MSH6: ???Present/intact IHC Interpretation: No loss of nuclear expression of MMR proteins: low probability of microsatellite instability-high (MSI-H)# # There are exceptions to the above IHC interpretations. These results should not be considered in isolation, and clinical correlation with genetic counseling is recommended to assess the need for germline testing. All controls show appropriate reactivity. All immunohistochemistry, in situ hybridization, and histochemical tests were developed by and are performed at the [facility], [address] [place] [address], ?[place] [address]. All Immunofluorescent (IF) ???tests were developed by and are performed at the [facility], [address] ???[address]. All tests reported here, except those addressing HER2 overexpression as a predictive marker, have not been cleared by or approved by the [place] Food and Drug Administration (FDA). The laboratory is regulated under CLIA as qualified to perform high-complexity te (more content not included)... Normal [facility] Comment on above: Performed By: #### P SUIV #### [facility] [address] [facility] [place], [place], [address] MR/Wilfrid 11-29-2024 MR/ANGELITA [facility] Medical Records Department [address] [place] [address] PAT - Anesthesia 11/29/24 1432 MR#: [id number] Acct: [id number] Name: CYNDEE HAWKINS Rep #: [id number] : 1960 64 From: Andrey Morales MD PCP: Dr. 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 Hx Hospitalization No 11/29/24 10:25 Any Problems [...] take am of surgery PONV PONV - licensed sales assistant: PONV - licensed sales assistant Female No 11/29/24 10:25 HX of Motion [...] 10/23/24 10:08 Respiratory Assessment Respiratory Assessment - licensed sales assistant: Respiratory Tract Infection Hx - licensed sales assistant Hx Respiratory Tract Infection No 11/29/24 10:25 STOP Sleep Apnea STOP Sleep Apnea - licensed sales assistant: STOP Sleep Apnea - licensed sales assistant Hx Hypertension No 11/29/24 10:25 Hx Sleep Apnea No 11/29/24 10:25 CPAP No 11/29/24 10:25 BIPAP No 11/29/24 10:25 Do you snore loudly (louder No 11/29/24 10:25 than talking or can be heard Do you often feel tired/ No 06/26/25 10:25 fatigued/ sleepy during daytime? Has anyone observed you stop No 11/29/24 10:25 breathing during sleep? STOP Results Negative 11/29/24 10:25 QUESTION #5 FULL TEXT : Do you snore loudly (louder than talking or can be heard through closed doors)? 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 Specify any problems Hx of Preganancy in last 3 N/A 11/29/24 10:25 Months Nurse Filling Out Transfusion NBUCHER 11/29/24 10:25 Questions: Date: 11/29/24 11/29/24 10:25 Time: 10:26 11/29/24 10:25 Patient unable to answer at this time (ie. confused, unrespo /Reproduction History /Reproductive History - licensed sales assistant: /Reproductive Hx- licensed sales assistant Hx Now No 11/29/24 10:25 Gestational Age (in weeks): EDC: Hx Hx Para Hx Section SAB No 11/29/24 10:25 [facility] Medical History (Updated 11/29/24 @ 10:34 by [...] DIFFICULTLY S (more content not included)... Normal [facility] XR ESOPHOGRAM W/BARIUM TABLE Ton 11-22-2024 [...] obtained. 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 Barium tablet does not pass through [...] recommended to further evaluate. Interpreted by: Anna Ocampo MD Preliminary Report By: Anna Ocampo MD Electronically signed By Anna Ocampo MD Dictated Date: 11/22/2024 9:32:33 AM Prelim Date: 11/22/2024 9:42:24 AM Sign Date: 11/22/2024 9:42:24 AM Ordering Provider: ANNA VEGA [facility] XR SWALLOWING FUNCTIONon XR SWALLOWING FUNCTION ORIGINAL Images acquired, not reported on this accession number. [facility] MAIN Gastroenterology Visit Repor ton 10-23-2024 Gastroenterology Visit Report [facility] Gastroenterology [address] [place] [address] OFFICE VISIT Date of Service: 10/23/24 MR#: [id number] Acct: [id number] Name: CYNDEE HAWKINS Rep #: [id number] : 1960 Provider: DARLENE singh Age/Sex: 64/M Location: [facility] [place] Status: Signed Intake Vital Signs 07/31/24 11:11 10/23/24 10:08 Height 5 ft 11 in 5 ft 11 in Weight: 213 lb 2 oz BMI 29.7 BP 151/94 H Respiration 16 Pulse 90 Pulse Oximetry (%) 92 Oxygen Delivery Method room air Intake Visit Reasons: Dysphagia Chief Complaint: trouble swallowing Household Coordinator Required: No Accompanied by: Sister Is patient [...] thinks the stress of that caused this. [facility] Medical History Chronic constipation Wears hearing aid [...] Jeet/Lymp He (more content not included)... Normal [facility] MR/BMS.BPon 07-31-2024 MR/BMS.BP [facility] [address], [address] [place] [address] OFFICE VISIT Date of Service: 07/31/24 MR#: [id number] Acct: [id number] Name: CYNDEE HAWKINS Rep #: [id number] : 1960 Provider: Dr. Paul Pedroza se, DO Age/Sex: 64/M Location: [facility] [place] Status: Signed Intake Vital Signs 05/02/24 11:21 [...] thoughts and (more content not included)... Normal [facility] .Auto Diffon 05-10-2024 Basophil, Absolute 0.0 10 3/mcL Normal 0.0-0.2 [facility] Comment on above: Performed By: #### C MP, LIPID, PSA, GFR, ANEU, A1C, CBC, ADIFF #### [address] [address] Basophils/100 WBC (Bld) 0.6 % Normal 0.0-2.5 [facility] Comment on above: Performed By: #### C MP, LIPID, PSA, GFR, ANEU, A1C, CBC, ADIFF #### [address] [address] Eosinophil, Absolute 0.1 10 3/mcL Normal 0.0-0.7 [facility] Comment on above: Performed By: #### C MP, LIPID, PSA, GFR, ANEU, A1C, CBC, ADIFF #### [address] [address] Eosinophils/100 WBC (Bld) 2.1 % Normal 0.0-7.0 [facility] Comment on above: Performed By: #### C MP, LIPID, PSA, GFR, ANEU, A1C, CBC, ADIFF #### [address] [address] Lymphocyte, Absolute 0.9 10 3/mcL Normal 0.9-4.3 [facility] Comment on above: Performed By: #### C MP, LIPID, PSA, GFR, ANEU, A1C, CBC, ADIFF #### [address] [address] Lymphocytes/100 WBC (Bld) 17.9 % Low 20.0-40.0 [facility] Comment on above: Performed By: #### C MP, LIPID, PSA, GFR, ANEU, A1C, CBC, ADIFF #### [address] [place], [place] [address] Monocyte, Absolute 0.5 10 3/mcL Normal 0.1-1.4 [facility] Comment on above: Performed By: #### C MP, LIPID, PSA, GFR, ANEU, A1C, CBC, ADIFF #### [address] [address] Monocytes/100 WBC (Bld) 10.7 % Normal 2.0-13.0 [facility] Comment on above: Performed By: #### C MP, LIPID, PSA, GFR, ANEU, A1C, CBC, ADIFF #### [address] [address] Neutrophils/100 WBC (Bld) 68.7 % Normal 50.0-75.0 [facility] Comment on above: Performed By: #### C MP, LIPID, PSA, GFR, ANEU, A1C, CBC, ADIFF #### [address] [address] .GFRon 05-10-2024 GFR 113 ml/min/1.73sqm Normal [facility] Comment on above: Result Comment: GFR Population [...] 15 mL/min/1.73 square meters Performed By: #### C MP, LIPID, PSA, GFR, ANEU, A1C, CBC, ADIFF ####[id number] [place], [place] [address] GFR Non- 93 ml/min/1.73sqm Normal [facility] Comment on above: Result Comment: GFR Population [...] 15 mL/min/1.73 square meters Performed By: #### C MP, LIPID, PSA, GFR, ANEU, A1C, CBC, ADIFF ####[address] [place], [place] [address] .NEUABSon 05-10-2024 Neutrophil, Absolute 3.3 10 3/mcL Normal 2.3-8.1 [facility] Comment on above: Performed By: #### C MP, LIPID, PSA, GFR, ANEU, A1C, CBC, ADIFF #### [address] [place], [place] [address] A1Con 05-10-2024 Glucose [Mass/Vol] 105 mg/dL Normal [facility] Comment on above: Result Comment: Suzanne mated Average Glucose calculated by equation ((28.7xA1C)-46.7) Estimated average glucose (eAG) is a calculated value from Hemoglobin A1C and is hospital sales representative of the average blood glucose level in the last 2-3 month period. Normal range: less than 114 mg/dL Performed By: #### C MP, LIPID, PSA, GFR, ANEU, A1C, CBC, ADIFF #### [address] [place], [place] [address] HbA1c (Bld) [Mass fraction] 5.3 % Normal 4.3-6.4 [facility] Comment on above: Performed By: #### C MP, LIPID, PSA, GFR, ANEU, A1C, CBC, ADIFF #### [address] [place], [place] [address] CBCon 05-10-2024 Erythrocyte distribution width (RBC) [Ratio] 12.9 % Normal 11.5-15.5 [facility] Comment on above: Performed By: #### C MP, LIPID, PSA, GFR, ANEU, A1C, CBC, ADIFF #### [address] [address] Hematocrit (Bld) [Volume fraction] 45.0 % Normal 40.0-52.0 [facility] Comment on above: Performed By: #### C MP, LIPID, PSA, GFR, ANEU, A1C, CBC, ADIFF #### [address] [address] Hgb 15.3 G/dL Normal 13.0-17.5 [facility] Comment on above: Performed By: #### C MP, LIPID, PSA, GFR, ANEU, A1C, CBC, ADIFF #### [address] [address] MCH (RBC) [Entitic mass] 32.5 pg Normal 27.0-33.0 [facility] Comment on above: Performed By: #### C MP, LIPID, PSA, GFR, ANEU, A1C, CBC, ADIFF #### [place] [address] MCHC 34.1 G/dL Normal 32.0-36.0 [facility] Comment on above: Performed By: #### C MP, LIPID, PSA, GFR, ANEU, A1C, CBC, ADIFF #### [place] [address] MCV (RBC) [Entitic vol] 95.5 fL Normal 81.0-100.0 [facility] Comment on above: Performed By: #### C MP, LIPID, PSA, GFR, ANEU, A1C, CBC, ADIFF #### [place] [id number] Platelet 187 10 3/mcL Normal 150-450 [facility] Comment on above: Performed By: #### C MP, LIPID, PSA, GFR, ANEU, A1C, CBC, ADIFF #### [address] [address] Platelet mean volume (Bld) [Entitic vol] 7.1 fL Normal 6.4-10.5 [facility] Comment on above: Performed By: #### C MP, LIPID, PSA, GFR, ANEU, A1C, CBC, ADIFF #### [address] [address] RBC 4.72 10 6/mcL Normal 4.50-6.00 [facility] Comment on above: Performed By: #### C MP, LIPID, PSA, GFR, ANEU, A1C, CBC, ADIFF #### [address] [address] WBC 4.8 10 3/mcL Normal 4.5-10.8 [facility] Comment on above: Performed By: #### C MP, LIPID, PSA, GFR, ANEU, A1C, CBC, ADIFF #### [address] [address] CMPon 05-10-2024 Albumin Level 4.2 G/dL Normal 3.4-4.8 [facility] Comment on above: Performed By: #### C MP, LIPID, PSA, GFR, ANEU, A1C, CBC, ADIFF #### [address] [address] Albumin/Globulin [Mass ratio] 1.4 {ratio} Normal 1.1-2.5 [facility] Comment on above: Performed By: #### C MP, LIPID, PSA, GFR, ANEU, A1C, CBC, ADIFF #### [address] [address] ALP [Catalytic activity/Vol] 90 U/L Normal 40-135 [facility] Comment on above: Performed By: #### C MP, LIPID, PSA, GFR, ANEU, A1C, CBC, ADIFF #### [address] [address] ALT [Catalytic activity/Vol] 37 U/L Normal 16-63 [facility] Comment on above: Performed By: #### C MP, LIPID, PSA, GFR, ANEU, A1C, CBC, ADIFF #### [address] [address] AST [Catalytic activity/Vol] 24 U/L Normal 10-40 [facility] Comment on above: Performed By: #### C MP, LIPID, PSA, GFR, ANEU, A1C, CBC, ADIFF #### [address] [address] Bili Total 0.5 mg/dL Normal 0.2-1.0 [facility] Comment on above: Result Comment: Use of this assay is not recommended for patients undergoing treatment with eltrombopag due to the potential for falsely elevated results. Performed By: #### C MP, LIPID, PSA, GFR, ANEU, A1C, CBC, ADIFF #### [address] [address] BUN/Creatinine Ratio 17 ratio Normal 7-27 [facility] Comment on above: Performed By: #### C MP, LIPID, PSA, GFR, ANEU, A1C, CBC, ADIFF #### [address] [address] Calcium [Mass/Vol] 9.4 mg/dL Normal 8.4-10.2 [facility] Comment on above: Performed By: #### C MP, LIPID, PSA, GFR, ANEU, A1C, CBC, ADIFF #### [address] [address] Chloride [Moles/Vol] 104 mmol/L Normal 98-107 [facility] Comment on above: Performed By: #### C MP, LIPID, PSA, GFR, ANEU, A1C, CBC, ADIFF #### [address] [address] CO2 [Moles/Vol] 22 mmol/L Low 23-31 [facility] Comment on above: Performed By: #### C MP, LIPID, PSA, GFR, ANEU, A1C, CBC, ADIFF #### [address] [address] Creatinine [Mass/Vol] 0.83 mg/dL Normal 0.70-1.30 [facility] Comment on above: Result Comment: Test ing performed on Siemens Dimension EXL analyzer using a modified kinetic Saida technique. Performed By: #### C MP, LIPID, PSA, GFR, ANEU, A1C, CBC, ADIFF #### [address] [address] Electrolyte Balance 17.0 mEq/L High 4.0-15.0 [facility] Comment on above: Performed By: #### C MP, LIPID, PSA, GFR, ANEU, A1C, CBC, ADIFF #### [address] [address] Globulin 2.9 G/dL Normal [facility] Comment on above: Performed By: #### C MP, LIPID, PSA, GFR, ANEU, A1C, CBC, ADIFF #### [address] [address] Glucose [Mass/Vol] 101 mg/dL Normal 80-115 [facility] Comment on above: Performed By: #### C MP, LIPID, PSA, GFR, ANEU, A1C, CBC, ADIFF #### [address] [address] Potassium [Moles/Vol] 4.7 mmol/L Normal 3.5-5.1 [facility] Comment on above: Performed By: #### C MP, LIPID, PSA, GFR, ANEU, A1C, CBC, ADIFF #### [address] [address] Sodium [Moles/Vol] 143 mmol/L Normal 136-145 [facility] Comment on above: Performed By: #### C MP, LIPID, PSA, GFR, ANEU, A1C, CBC, ADIFF #### [address] [address] Total Protein 7.1 G/dL Normal 6.4-8.2 [facility] Comment on above: Performed By: #### C MP, LIPID, PSA, GFR, ANEU, A1C, CBC, ADIFF #### [address] [address] Urea nitrogen [Mass/Vol] 14 mg/dL Normal 7-18 [facility] Comment on above: Performed By: #### C MP, LIPID, PSA, GFR, ANEU, A1C, CBC, ADIFF #### [facility] [address] [place], [place] [address] LABORATORYOrdered By: SYSTEM SYSTEM on 05-10-2024 Albumin [...] Bilirubin [Mass/Vol] 0.5 mg/dL Normal 0.2 - 1.0 mg/dL AO ADM SS Comment on above: Interpretive Data: U se of this assay is not recommended for patients undergoing treatment with eltrombopag due to the potential for falsely elevated results. Calcium [Mass/Vol] 9.4 mg/dL Normal 8.4 - 10. 2 mg/dL AO ADM SS Chloride [Moles/Vol] 104 mmol/L Normal 98 - 107 mmol/L AO ADM SS CO2 [Moles/Vol] 22 [...] Eosinophil, Absolute 0.1 103/mcL Normal 0.0 - 0.7 10^3/mcL AO Workflow SS Eosinophils/100 WBC (Bld) [...] calculated value from Hemoglobin A1C and is hospital sales representative of the average blood glucose level in [...] 05-10-2024 Cholesterol [Mass/Vol] 210 mg/dL High 0-200 [facility] Comment on above: Result Comment: Chol esterol Reference Interval: Less than 200 Desirable 200-239 Borderline high risk 240 and above High risk Performed By: #### C MP, LIPID, PSA, GFR, ANEU, A1C, CBC, ADIFF ####[facility] [place], [place] [address] Cholesterol in HDL [Mass/Vol] 46 mg/dL Normal 40-60 [facility] Comment on above: Performed By: #### C MP, LIPID, PSA, GFR, ANEU, A1C, CBC, ADIFF ####[facility] [place], [place] [address] Cholesterol in LDL [Mass/Vol] 138 mg/dL High 0-130 [facility] Comment on above: Performed By: #### C MP, LIPID, PSA, GFR, ANEU, A1C, CBC, ADIFF ####[facility] [place], [place] [address] Triglyceride [Mass/Vol] 132 mg/dL Normal 0-150 [facility] Comment on above: Result Comment: Trig lyceride Reference Interval: Less than 150 Normal 150-199 Borderline high risk 200-499 High risk 500 or higher Very high risk Performed By: #### C MP, LIPID, PSA, GFR, ANEU, A1C, CBC, ADIFF ####[address] [place], [place] [address] PSAon 05-10-2024 Prostate Specific Antigen 0.34 ng/mL Normal 0.00-4.00 [facility] Comment on above: Performed By: #### C MP, LIPID, PSA, GFR, ANEU, A1C, CBC, ADIFF #### [facility] [place] [address] [place], [place] [address] MR/BMS.BPon 05-02-2024 MR/BMS.BP [address], [place] [address] OFFICE VISIT Date of Service: 05/02/24 MR#: [id number] Acct: [id number] Name: HAWKINSCYNDEE Rep #: [id number] : 1960 Provider: Dr. Paul Pedroza se DO Age/Sex: 64/M Location: [facility] [place] Status: Signed Intake Vital Signs 01/26/24 11:48 [...] the gun quickly. Has not gone to [facility] but he feels like he has been busy going to appointments. Sister alludes to the fact that mother was not keen on the idea of patient going and therefore has largely maintained similar routine. Goes 3x per week at [employer] [facility] which does involve some mild socialization. [...] Insight questionable (more content not included)... Normal [facility] XR HAND MINIMUM 3 VIEWS CRISTINA [...] 02/15/2024 9:50:15 AM Ordering Provider: FELIZ ALEXANDER [facility] MR/BMS.BPon 01-26-2024 MR/BMS.BP [facility] [address] [place] [address], [address] [place] [address] OFFICE VISIT Date of Service: 01/26/24 MR#: [id number] Acct: [id number] Name: CYNDEE HAWKINS Rep #: [id number] : 1960 Provider: Dr. Paul Pedroza se, DO Age/Sex: 63/M Location: [facility] [place] Status: Signed Intake Vital Signs 10/26/23 10:53 01/26/24 11:39 01/26/24 11:48 Height 5 ft 11 in 5 ft 11 in 5 ft 11 in BP 139/80 H 122/74 H Blood Pressure Location Rt brachial Rt brachial Position Sitting Sitting Pulse 75 76 Pulse Source Monitor Monitor BP Intake Visit Reasons: 3 M FU Household Coordinator Required: No Accompanied by: Parents Is patient [...] to the office today for follow up. [facility] Medical History Chronic constipation Wears hearing aid [...] other (stif (more content not included)... Normal [facility] .Auto Diffon 08-18-2023 Basophil, Absolute 0.0 10 3/mcL Normal 0.0-0.2 [facility] ([place]) Comment on above: Performed By: #### A MANDO, CBC, GFR, A1C, CMP, ADIFF #### [address] [address] Basophils/100 WBC (Bld) 1.0 % Normal 0.0-2.5 Count Includes [facility] ([place]) Comment on above: Performed By: #### A MANDO, CBC, GFR, A1C, CMP, ADIFF #### [address] [address] Eosinophil, Absolute 0.2 10 3/mcL Normal 0.0-0.4 Count Includes [facility] ([place]) Comment on above: Performed By: #### A MANDO, CBC, GFR, A1C, CMP, ADIFF #### [address] [address] Eosinophils/100 WBC (Bld) 4.1 % Normal 0.0-7.0 Count Includes [facility] ([place]) Comment on above: Performed By: #### A MANDO, CBC, GFR, A1C, CMP, ADIFF #### [address] [address] Lymphocyte, Absolute 0.9 10 3/mcL Normal 0.8-3.9 Count Includes [facility] ([place]) Comment on above: Performed By: #### A MANDO, CBC, GFR, A1C, CMP, ADIFF #### [address] [address] Lymphocytes/100 WBC (Bld) 22.2 % Normal 10.0-50.0 Count Includes [facility] ([place]) Comment on above: Performed By: #### A MANDO, CBC, GFR, A1C, CMP, ADIFF #### [address] [address] Monocyte, Absolute 0.5 10 3/mcL Normal 0.2-1.0 [facility] ([place]) Comment on above: Performed By: #### A MANDO, CBC, GFR, A1C, CMP, ADIFF #### [address] [address] Monocytes/100 WBC (Bld) 11.8 % Normal 1.7-13.0 Count Includes [facility] ([place]) Comment on above: Performed By: #### A MANDO, CBC, GFR, A1C, CMP, ADIFF #### [address] [address] Neutrophils/100 WBC (Bld) 60.9 % Normal 37.0-80.0 Count Includes [facility] ([place]) Comment on above: Performed By: #### A MANDO, CBC, GFR, A1C, CMP, ADIFF #### [address] [address] .GFRon 08-18-2023 GFR Non- 95 ml/min/1.73sqm Normal Count Includes [facility] ([place]) Comment on above: Result Comment: GFR Population [...] mL/min/1.73 square meters Performed By: #### A MANDO, CBC, GFR, A1C, CMP, ADIFF #### [address] [address] GFR 115 ml/min/1.73sqm Normal Count Includes [facility] ([place]) Comment on above: Result Comment: GFR Population [...] mL/min/1.73 square meters Performed By: #### A MANDO, CBC, GFR, A1C, CMP, ADIFF #### [address] [address] .NEUABSon 08-18-2023 Neutrophil, Absolute 2.4 10 3/mcL Low 2.9-6.2 Count Includes [facility] ([place]) Comment on above: Performed By: #### A MANDO, CBC, GFR, A1C, CMP, ADIFF #### [address] [address] A1Con 08-18-2023 HbA1c (Bld) [Mass fraction] 5.3 % Normal 4.3-6.4 Count Includes [facility] ([place]) Comment on above: Performed By: #### A MANDO, CBC, GFR, A1C, CMP, ADIFF #### [address] [address] CBCon 08-18-2023 Erythrocyte distribution width (RBC) [Ratio] 14.3 % Normal 11.5-14.5 Count Includes [facility] ([place]) Comment on above: Order Comment: nedra hinton to Dr. Jay Jay Li F: [phone] Performed By: #### A MANDO, CBC, GFR, A1C, CMP, ADIFF #### [facility] [address] [address] Hematocrit (Bld) [Volume fraction] 42.9 % Normal 42.0-52.0 Count Includes [facility] ([place]) Comment on above: Order Comment: nedra Li F: [phone] Performed By: #### A MANDO, CBC, GFR, A1C, CMP, ADIFF #### [address] [address] Hgb 15.1 G/dL Normal 14.0-18.0 Count Includes [facility] ([place]) Comment on above: Order Comment: nedra Li F: [phone] Performed By: #### A MANDO, CBC, GFR, A1C, CMP, ADIFF #### [address] [address] MCH (RBC) [Entitic mass] 32.1 pg High 27.0-31.2 Count Includes [facility] ([place]) Comment on above: Order Comment: nedra Li F: [phone] Performed By: #### A MANDO, CBC, GFR, A1C, CMP, ADIFF #### [address] [address] MCHC 35.3 G/dL Normal 31.8-35.4 Count Includes [facility] ([place]) Comment on above: Order Comment: nedra hinton to Dr. Jay Jay Li F: [phone] Performed By: #### A MANDO, CBC, GFR, A1C, CMP, ADIFF #### [address] [address] MCV (RBC) [Entitic vol] 90.9 fL Normal 80.0-94.0 Count Includes [facility] ([place]) Comment on above: Order Comment: nedra hinton to Dr. Jay Jay Li F: Performed By: #### A MANDO, CBC, GFR, A1C, CMP, ADIFF #### [address] [address] Platelet 181 10 3/mcL Normal 130-400 Count Includes [facility] ([place]) Comment on above: Order Comment: nedra hinton to Dr. Jay Jay Li F: Performed By: #### A MANDO, CBC, GFR, A1C, CMP, ADIFF #### [address] [address] Platelet mean volume (Bld) [Entitic vol] 6.7 fL Low 7.4-10.4 Count Includes [facility] ([place]) Comment on above: Order Comment: nedra hinton to Dr. Jay Jay Li F: [phone] Performed By: #### A MANDO, CBC, GFR, A1C, CMP, ADIFF #### [address] [address] RBC 4.71 10 6/mcL Normal 4.04-6.13 Count Includes [facility] ([place]) Comment on above: Order Comment: nedra hinton to Dr. Jay Jay Li F: [phone] Performed By: #### A MANDO, CBC, GFR, A1C, CMP, ADIFF #### [address] [address] WBC 4.0 10 3/mcL Low 4.6-10.8 Count Includes [facility] ([place]) Comment on above: Order Comment: nedra Li F: [phone] Performed By: #### A MANDO, CBC, GFR, A1C, CMP, ADIFF #### [address] [address] CMPon 08-18-2023 Albumin Level 3.9 G/dL Normal 3.4-4.8 Count Includes [facility] ([place]) Comment on above: Order Comment: nedra hinton to Dr. Jay Jay Li F: [phone] Performed By: #### A MANDO, CBC, GFR, A1C, CMP, ADIFF #### [address] [address] Albumin/Globulin [Mass ratio] 1.3 {ratio} Normal 1.1-2.5 Count Includes [facility] ([place]) Comment on above: Order Comment: nedra hinton to Dr. Jay Jay Li F: [phone] Performed By: #### A MANDO, CBC, GFR, A1C, CMP, ADIFF #### [address] [address] ALP [Catalytic activity/Vol] 105 U/L Normal 40-135 Count Includes [facility] ([place]) Comment on above: Order Comment: nedra hinton to Dr. Jay Jay Li F: [phone] Performed By: #### A MANDO, CBC, GFR, A1C, CMP, ADIFF #### [address] [address] ALT [Catalytic activity/Vol] 29 U/L Normal 16-63 Count Includes [facility] ([place]) Comment on above: Order Comment: nedra hinton to Dr. Jay Jay Li F: [phone] Performed By: #### A MANDO, CBC, GFR, A1C, CMP, ADIFF #### [address] [address] AST [Catalytic activity/Vol] 23 U/L Normal 10-40 Count Includes [facility] ([place]) Comment on above: Order Comment: nedra hinton to Dr. Jay Jay Li F: [phone] Performed By: #### A MANDO, CBC, GFR, A1C, CMP, ADIFF #### [address] [address] Bili Total 0.4 mg/dL Normal 0.2-1.0 Count Includes [facility] ([place]) Comment on above: Order Comment: nedra hinton to Dr. Jay Jay Li F: [phone] Result Comment: Use of this assay is not recommended for patients undergoing treatment with eltrombopag due to the potential for falsely elevated results. Performed By: #### A MANDO, CBC, GFR, A1C, CMP, ADIFF #### [address] [address] BUN/Creatinine Ratio 23 ratio Normal 7-27 Count Includes [facility] ([place]) Comment on above: Order Comment: nedra hinton to Dr. Jay Jay Li F: [phone] Performed By: #### A MANDO, CBC, GFR, A1C, CMP, ADIFF #### [address] [address] Calcium [Mass/Vol] 8.8 mg/dL Normal 8.4-10.2 [facility] ([place]) Comment on above: Order Comment: nedra hinton to Dr. Jay Jay Li F: [phone] Performed By: #### A MANDO, CBC, GFR, A1C, CMP, ADIFF #### [address] [address] Chloride [Moles/Vol] 105 mmol/L Normal 98-107 Count Includes [facility] ([place]) Comment on above: Order Comment: nedra hinton to Dr. Jay Jay Li F: [phone] Performed By: #### A MANDO, CBC, GFR, A1C, CMP, ADIFF #### [address] [address] CO2 [Moles/Vol] 27 mmol/L Normal 23-31 Count Includes [facility] ([place]) Comment on above: Order Comment: nedra hinton to Dr. Jay Jay Li F: [phone] Performed By: #### A MANDO, CBC, GFR, A1C, CMP, ADIFF #### [address] [address] Creatinine [Mass/Vol] 0.82 mg/dL Normal 0.70-1.30 Count Includes [facility] ([place]) Comment on above: Order Comment: cc ronnie kelseyts to Dr. Jay Jay Li F: Performed By: #### A MANDO, CBC, GFR, A1C, CMP, ADIFF #### [address] [address] Electrolyte Balance 7.0 mEq/L Normal 4.0-15.0 [facility] ([place]) Comment on above: Order Comment: cc ronnie kelseyts to Dr. Jay Jay Li F: Performed By: #### A MANDO, CBC, GFR, A1C, CMP, ADIFF #### [address] [address] Globulin 3.0 G/dL Normal Count Includes [facility] ([place]) Comment on above: Order Comment: cc ronnie kelseyts to Dr. Jay Jay Li F: Performed By: #### A MANDO, CBC, GFR, A1C, CMP, ADIFF #### [place] [id number] Glucose [Mass/Vol] 108 mg/dL Normal 80-115 [facility] ([place]) Comment on above: Order Comment: nedra hinton to Dr. Jay Jay Li F: Performed By: #### A MANDO, CBC, GFR, A1C, CMP, ADIFF #### [address] [address] Potassium [Moles/Vol] 4.4 mmol/L Normal 3.5-5.1 Count Includes [facility] ([place]) Comment on above: Order Comment: nedra kelseyts to Dr. Jay Jay Li F: Performed By: #### A MANDO, CBC, GFR, A1C, CMP, ADIFF #### [address] [address] Sodium [Moles/Vol] 139 mmol/L Normal 136-145 [facility] ([place]) Comment on above: Order Comment: nedra hinton to Dr. Jay Jay iL F: [phone] Performed By: #### A MANDO, CBC, GFR, A1C, CMP, ADIFF #### [address] [address] Total Protein 6.9 G/dL Normal 6.4-8.2 Count Includes [facility] ([place]) Comment on above: Order Comment: nedra hinton to Dr. Jay Jay Li F: [phone] Performed By: #### A MANDO, CBC, GFR, A1C, CMP, ADIFF #### [place] [id number] [place], [place] [address] Urea nitrogen [Mass/Vol] 19 mg/dL High 7-18 Count Includes [facility] ([place]) Comment on above: Order Comment: nedra hinton to Dr. Jay Jay Li F: [phone] Performed By: #### A MANDO, CBC, GFR, A1C, CMP, ADIFF #### [address] [address] LABORATORYOrdered By: SYSTEM SYSTEM on 08-18-2023 Albumin [...] Bilirubin [Mass/Vol] 0.4 mg/dL Normal 0.2 - 1.0 mg/dL AO ADM SS Comment on above: Interpretive Data: U se of this assay is not recommended for patients undergoing treatment with eltrombopag due to the potential for falsely elevated results. Calcium [Mass/Vol] 8.8 mg/dL Normal 8.4 - 10. 2 mg/dL AO ADM SS Chloride [Moles/Vol] 105 mmol/L Normal 98 - 107 mmol/L AO ADM SS CO2 [Moles/Vol] 27 mmol/L Normal 23 - 31 mmol/L AO ADM SS Creatinine [Mass/Vol] 0.82 mg/dL Normal 0.70 - 1.30 mg/dL AO ADM SS Electrolyte Balance 7.0 mEq/L Normal 4.0 - 15 .0 mEq/L AO ADM SS Eosinophil, Absolute 0.2 103/mcL Normal 0.0 - 0.4 10^3/mcL AO Workflow SS [...] Lymphocyte, Absolute 0.9 103/mcL Normal 0.8 - 3.9 10^3/mcL AO Workflow SS [...] Neutrophil, Absolute 2.4 103/mcL Low 2.9 - 6.2 10^3/mcL AO Workflow SS [...] Workflow SS XR HAND MINIMUM 3 VIEWS RIGH Ton 07-08-2023 XR HAND MINIMUM 3 VIEWS [...] 07/08/2023 7:57:46 AM Ordering Provider: ANNA VEGA [facility] ([place]) CT SPINE CERVICAL W/O JOHN Dillon 06-28-2023 [...] 06/28/2023 7:25:48 PM Ordering Provider: GINA HOWARD [facility] ([place]) BMP with eGFRon 03-01-[address]23 AGE [address] [facility] Comment on above: Performed By: #### 2 89597 #### [facility],[address] [place], [place] [id number] Anion gap [Moles/Vol] 12 mmol/L Normal 10 - 20 [facility] Comment on above: Performed By: #### 2 81034 #### [facility],[address] [place], [place] [id number] BMP with eGFR Normal [facility] Comment on above: Result Comment: BASI C METABOLIC PANEL Performed By: #### 2 92878 #### [facility],[address] [place], [place] [address] Calcium [Mass/Vol] 8.8 mg/dL Normal 8.5 - 10.1 [facility] Comment on above: Performed By: #### 2 89536 #### [facility],[address] [place], [place] [address] Chloride [Moles/Vol] 105 mmol/L Normal 98 - 107 [facility] Comment on above: Performed By: #### 2 38837 #### [facility],[address] [place], [place] [address] CO2 [Moles/Vol] 24.9 mmol/L Normal 21.0 - 32.0 [facility] Comment on above: Performed By: #### 2 91874 #### [facility],[address] [place], [place] [address] Creatinine [Mass/Vol] 0.85 mg/dL Normal 0.70 - 1.30 [facility] Comment on above: Performed By: #### 2 10460 #### [facility],[address] [place], [place] [address] GFR/1.73 sq M.predicted among non-blacks MDRD (S/P/Bld) [Vol rate/Area] mL/min/{1.73_m2} Normal 60 - 999 [facility] Comment on above: Performed By: #### 2 70506 #### [facility],[address] [place] [address] Result Comment: ACCO RDING TO THE NATIONAL KIDNEY DISEASE EDUCATION PROGRAM(NKDE), A NORMAL eGFR IS A VALUE GREATER THAN OR EQUAL TO 60 ML/MIN/1.73 SQ METERS. CHRONIC KIDNEY DISEASE: <60mL/MIN/1.73 SQ METERS KIDNEY FAILURE: <15mL/MIN/1.73 SQ METERS THIS TEST SHOULD ONLY BE USED FOR PATIENTS 18 YEARS OF AGE AND OLDER. Glucose [Mass/Vol] 125 mg/dL High 74 - 106 [facility] Comment on above: Performed By: #### 2 94880 #### [facility],[address] [place], [place] [address] Potassium [Moles/Vol] 3.9 mmol/L Normal 3.5 - 5.1 [facility] Comment on above: Performed By: #### 2 85255 #### [facility],[address] [place], [place] [address] Sodium [Moles/Vol] 138 mmol/L Normal 136 - 145 [facility] Comment on above: Performed By: #### 2 63550 #### [facility],[address] [place] [address] Urea nitrogen [Mass/Vol] 10 mg/dL Normal 7 - 18 [facility] Comment on above: Performed By: #### 2 34964 #### [facility],[address] [place] [address] CBC + DIFFon 03-01-2023 Baso # 0.00 x10EE3/UL Normal 0.00 - 0.10 [facility] Comment on above: Performed By: #### 2 93366 #### [facility],[address] [place] [address] Basophils/100 WBC (Bld) 0.0 % Normal 0.0 - 2.0 [facility] Comment on above: Performed By: #### 2 52205 #### [facility],[address] [place] [address] CBC + DIFF Normal [facility] Comment on above: Result Comment: CBC- COMPLETE BLOOD COUNT Performed By: #### 2 00879 #### [facility],[address] [place] [address] EO # 0.00 x10EE3/UL Normal 0.00 - 0.50 [facility] Comment on above: Performed By: #### 2 73384 #### [facility],[address] [place] [address] Eosinophils/100 WBC (Bld) 0.0 % Normal 0.0 - 7.0 [facility] Comment on above: Performed By: #### 2 63593 #### [facility],[address] [place], [place] [address] Erythrocyte distribution width (RBC) [Ratio] 13.1 % Normal 12.0 - 15.6 [facility] Comment on above: Performed By: #### 2 23897 #### [facility],[address] [place] [address] Hematocrit (Bld) [Volume fraction] 41.5 % Normal 40.0 - 52.0 [facility] Comment on above: Performed By: #### 2 48987 #### [facility],[address] [place] [address] Hemoglobin (Bld) [Mass/Vol] 14.0 g/dL Normal 13.0 - 17.5 [facility] Comment on above: Performed By: #### 2 60078 #### [facility],[address] [place], [place] [address] Lymph # 0.30 x10EE3/UL Low 0.80 - 2.80 [facility] Comment on above: Performed By: #### 2 75284 #### [facility],[address] [place], [place] [address] Lymphocytes/100 WBC (Bld) 2.9 % Low 20.0 - 45.0 [facility] Comment on above: Performed By: #### 2 59639 #### [facility],[address] [place], [place] [address] MANUAL DIFF N/A Normal [facility] Comment on above: Performed By: #### 2 42127 #### [facility],[address] [place] [address] MCH (RBC) [Entitic mass] 32 pg Normal 27 - 33 [facility] Comment on above: Performed By: #### 2 38948 #### [facility],[address] [place] [address] MCHC 34 X10 3 Normal 32 - 36 [facility] Comment on above: Performed By: #### 2 99528 #### [facility],[address] [place] [address] MCV (RBC) [Entitic vol] 96 fL Normal 81 - 98 [facility] Comment on above: Performed By: #### 2 64807 #### [facility],[address] [place] [address] [place] # 0.70 x10EE3/UL Normal 0.20 - 1.00 [facility] Comment on above: Performed By: #### 2 72052 #### [facility],[address] [place] [address] MONOS % 6.3 % Normal 0.0 - 10.0 [facility] Comment on above: Performed By: #### 2 48980 #### [facility],[address] [place] [address] Morphology Colten (Bld) [Interp] N/A Normal [facility] Comment on above: Result Comment: {CD] Performed By: #### 2 18686 #### [facility],[address] [place] [address] Neut # 9.70 x10EE3/UL High 1.50 - 7.10 [facility] Comment on above: Performed By: #### 2 28670 #### [address] [address] Neutrophils/100 WBC (Bld) 90.8 % High 46.0 - 76.0 [facility] Comment on above: Performed By: #### 2 06929 #### [facility],[address] [place] [address] PLATELET 225 x10EE3/UL Normal 150 - 450 [facility] Comment on above: Performed By: #### 2 03627 #### [facility],[address] [place] [address] Platelet mean volume (Bld) [Entitic vol] 7.1 fL Normal 6.4 - 10.5 [facility] Comment on above: Result Comment: AUTO MATED DIFFERENTIAL Performed By: #### 2 69803 #### [facility],[address] [place] [address] RBC 4.34 x 10EE6/UL Low 4.50 - 6.00 [facility] Comment on above: Performed By: #### 2 88252 #### [address] [address] WBC 10.7 x 10EE3/UL Normal 4.5 - 10.8 [facility] Comment on above: Performed By: #### 2 07568 #### [facility],[address] [place] [address] KNEE 2 VIEWS LTon 02-28-2023 KNEE 2 VIEWS LT [address] [address] Patient: SREEDHAR HAWKINS Phone#: : 1960 Age: 62 Gender: M Pt. Type: Out Account: [id number] Location: [facility] Ordering: JAY JAY LI Exam Date: 02/28/2023/17:41 Family Phys: JAIME ROACH Charge Code: 916164 Physician: Dallam Order #: [id number] Dose#: PROCEDURE: X-RAY KNEE LT 2 VIEWS [...] Coon MD on 02/28/2023 at 18:[address] [facility] NM MYOCARDIAL SPECT STRESS/R ESTon 02-25-2023 [...] Date: 02/25/2023 10:28:14 AM Ordering Provider:Anna Carias Count Includes [facility] ([place]) .Auto Diffon 02-16-2023 Basophil, Absolute 0.0 10 3/mcL Normal 0.0-0.2 [facility] ([place]) Comment on above: Performed By: #### C MP, A1C, GFR, ANEU, ADIFF, CBC #### [address] [address] Basophils/100 WBC (Bld) 0.6 % Normal 0.0-2.5 Count Includes [facility] ([place]) Comment on above: Performed By: #### C MP, A1C, GFR, ANEU, ADIFF, CBC #### [address] [address] Eosinophil, Absolute 0.1 10 3/mcL Normal 0.0-0.4 Count Includes [facility] ([place]) Comment on above: Performed By: #### C MP, A1C, GFR, ANEU, ADIFF, CBC #### [address] [address] Eosinophils/100 WBC (Bld) 1.6 % Normal 0.0-7.0 Count Includes [facility] ([place]) Comment on above: Performed By: #### C MP, A1C, GFR, ANEU, ADIFF, CBC #### [address] [address] Lymphocyte, Absolute 1.1 10 3/mcL Normal 0.8-3.9 Count Includes [facility] ([place]) Comment on above: Performed By: #### C MP, A1C, GFR, ANEU, ADIFF, CBC #### [address] [address] Lymphocytes/100 WBC (Bld) 19.1 % Normal 10.0-50.0 Count Includes [facility] ([place]) Comment on above: Performed By: #### C MP, A1C, GFR, ANEU, ADIFF, CBC #### [address] [address] Monocyte, Absolute 0.5 10 3/mcL Normal 0.2-1.0 [facility] ([place]) Comment on above: Performed By: #### C MP, A1C, GFR, ANEU, ADIFF, CBC #### [address] [address] Monocytes/100 WBC (Bld) 8.9 % Normal 1.7-13.0 Count Includes [facility] ([place]) Comment on above: Performed By: #### C MP, A1C, GFR, ANEU, ADIFF, CBC #### [address] [address] Neutrophils/100 WBC (Bld) 69.8 % Normal 37.0-80.0 Count Includes [facility] ([place]) Comment on above: Performed By: #### C MP, A1C, GFR, ANEU, ADIFF, CBC #### [address] [address] .GFRon 02-16-2023 GFR 117 ml/min/1.73sqm Normal Count Includes [facility] ([place]) Comment on above: Result Comment: GFR Population [...] mL/min/1.73 square meters Performed By: #### A MANDO, CBC, GFR, A1C, CMP, ADIFF #### [address] [address] GFR Non- 97 ml/min/1.73sqm Normal Count Includes [facility] ([place]) Comment on above: Result Comment: GFR Population [...] mL/min/1.73 square meters Performed By: #### A MANDO, CBC, GFR, A1C, CMP, ADIFF #### [address] [address] .NEUABSon 02-16-2023 Neutrophil, Absolute 4.0 10 3/mcL Normal 2.9-6.2 Count Includes [facility] ([place]) Comment on above: Performed By: #### C MP, A1C, GFR, ANEU, ADIFF, CBC #### [address] [address] A1Con 02-16-2023 HbA1c (Bld) [Mass fraction] 5.4 % Normal 4.3-6.4 Count Includes [facility] ([place]) Comment on above: Order Comment: nedra Li F: [phone] Performed By: #### A MANDO, CBC, GFR, A1C, CMP, ADIFF #### [address] [address] CBCon 02-16-2023 Erythrocyte distribution width (RBC) [Ratio] 13.3 % Normal 11.5-14.5 Count Includes [facility] ([place]) Comment on above: Order Comment: nedra Li Performed By: #### C MP, A1C, GFR, ANEU, ADIFF, CBC #### [address] [address] Hematocrit (Bld) [Volume fraction] 42.8 % Normal 42.0-52.0 Count Includes [facility] ([place]) Comment on above: Order Comment: cc ronnie kelseyts to Dr. Jay Jay Li Performed By: #### C MP, A1C, GFR, ANEU, ADIFF, CBC #### [address] [address] Hgb 14.8 G/dL Normal 14.0-18.0 Count Includes [facility] ([place]) Comment on above: Order Comment: cc ronnie sults to Dr. Jay Jay Li Performed By: #### C MP, A1C, GFR, ANEU, ADIFF, CBC #### [address] [address] MCH (RBC) [Entitic mass] 32.7 pg High 27.0-31.2 Count Includes [facility] ([place]) Comment on above: Order Comment: nedra kelseyts to Dr. Jay Jay Li Performed By: #### C MP, A1C, GFR, ANEU, ADIFF, CBC #### [address] [address] MCHC 34.5 G/dL Normal 31.8-35.4 Count Includes [facility] ([place]) Comment on above: Order Comment: nedra kelseyts to Dr. Jay Jay Li Performed By: #### C MP, A1C, GFR, ANEU, ADIFF, CBC #### [address] [address] MCV (RBC) [Entitic vol] 94.8 fL High 80.0-94.0 Count Includes [facility] ([place]) Comment on above: Order Comment: cc ronnie hinton to Dr. Jay Jay Li Performed By: #### C MP, A1C, GFR, ANEU, ADIFF, CBC #### [address] [address] Platelet 210 10 3/mcL Normal 130-400 Count Includes [facility] ([place]) Comment on above: Order Comment: cc ronnie sults to Dr. Jay Jay Li Performed By: #### C MP, A1C, GFR, ANEU, ADIFF, CBC #### [address] [address] Platelet mean volume (Bld) [Entitic vol] 7.4 fL Normal 7.4-10.4 Count Includes [facility] ([place]) Comment on above: Order Comment: cc ronnie kelseyts to Dr. Jay Jay Li Performed By: #### C MP, A1C, GFR, ANEU, ADIFF, CBC #### [address] [address] RBC 4.51 10 6/mcL Normal 4.04-6.13 Count Includes [facility] ([place]) Comment on above: Order Comment: cc ronnie sults to Dr. Jay Jay Li Performed By: #### C MP, A1C, GFR, ANEU, ADIFF, CBC #### [address] [address] WBC 5.7 10 3/mcL Normal 4.6-10.8 Count Includes [facility] ([place]) Comment on above: Order Comment: nedra hinton to Dr. Jay Jay Li Performed By: #### C MP, A1C, GFR, ANEU, ADIFF, CBC #### [address] [address] CMPon 02-16-2023 Albumin Level 4.4 G/dL Normal 3.4-4.8 Count Includes [facility] ([place]) Comment on above: Order Comment: nedra hinton to Dr. Jay Jay Li F: [phone] Performed By: #### A MANDO, CBC, GFR, A1C, CMP, ADIFF #### [address] [address] Albumin/Globulin [Mass ratio] 1.3 {ratio} Normal 1.1-2.5 Count Includes [facility] ([place]) Comment on above: Order Comment: nedra Li F: [phone] Performed By: #### A MANDO, CBC, GFR, A1C, CMP, ADIFF #### [address] [address] ALP [Catalytic activity/Vol] 90 U/L Normal 40-135 Count Includes [facility] ([place]) Comment on above: Order Comment: nedra Li F: [phone] Performed By: #### A MANDO, CBC, GFR, A1C, CMP, ADIFF #### [address] [address] ALT [Catalytic activity/Vol] 26 U/L Normal 16-63 Count Includes [facility] ([place]) Comment on above: Order Comment: nedra hinton to Dr. Jay Jay Li F: [phone] Performed By: #### A MANDO, CBC, GFR, A1C, CMP, ADIFF #### [address] [address] AST [Catalytic activity/Vol] 21 U/L Normal 10-40 Count Includes [facility] ([place]) Comment on above: Order Comment: nedra hinton to Dr. Jay Jay Li F: [phone] Performed By: #### A MANDO, CBC, GFR, A1C, CMP, ADIFF #### [address] [address] Bili Total 0.6 mg/dL Normal 0.2-1.0 Count Includes [facility] ([place]) Comment on above: Order Comment: nedra hinton to Dr. Jay Jay Li F: [phone] Result Comment: Use of this assay is not recommended for patients undergoing treatment with eltrombopag due to the potential for falsely elevated results. Performed By: #### A MANDO, CBC, GFR, A1C, CMP, ADIFF #### [address] [address] BUN/Creatinine Ratio 25 ratio Normal 7-27 Count Includes [facility] ([place]) Comment on above: Order Comment: nedra hinton to Dr. Jay Jay Li F: [phone] Performed By: #### A MANDO, CBC, GFR, A1C, CMP, ADIFF #### [address] [address] Calcium [Mass/Vol] 9.1 mg/dL Normal 8.4-10.2 [facility] ([place]) Comment on above: Order Comment: nedra hinton to Dr. Jay Jay Li F: [phone] Performed By: #### A MANDO, CBC, GFR, A1C, CMP, ADIFF #### [address] [address] Chloride [Moles/Vol] 106 mmol/L Normal 98-107 Count Includes [facility] ([place]) Comment on above: Order Comment: nedra hinton to Dr. Jay Jay Li F: [phone] Performed By: #### A MANDO, CBC, GFR, A1C, CMP, ADIFF #### [address] [address] CO2 [Moles/Vol] 28 mmol/L Normal 23-31 Count Includes [facility] ([place] Comment on above: Order Comment: nedra hinton to Dr. Jay Jay Li F: [phone] Performed By: #### A MANDO, CBC, GFR, A1C, CMP, ADIFF #### [address] [address] Creatinine [Mass/Vol] 0.81 mg/dL Normal 0.70-1.30 Count Includes [facility] ([place]) Comment on above: Order Comment: nedra hinton to Dr. Jay Jay Li F: [phone] Performed By: #### A MANDO, CBC, GFR, A1C, CMP, ADIFF #### [address] [address] Electrolyte Balance 10.0 mEq/L Normal 4.0-15.0 [facility] ([place]) Comment on above: Order Comment: nedra hinton to Dr. Jay Jay Li F: [phone] Performed By: #### A MANDO, CBC, GFR, A1C, CMP, ADIFF #### [address] [address] Globulin 3.3 G/dL Normal Count Includes [facility] ([place]) Comment on above: Order Comment: nedra hinton to Dr. Jay Jay Li F: [phone] Performed By: #### A MANDO, CBC, GFR, A1C, CMP, ADIFF #### [address] [address] Glucose [Mass/Vol] 92 mg/dL Normal 80-115 [facility] ([place]) Comment on above: Order Comment: cc ronnie hinton to Dr. Jay Jay Li F: [phone] Performed By: #### A MANDO, CBC, GFR, A1C, CMP, ADIFF #### [address] [address] Potassium [Moles/Vol] 5.0 mmol/L Normal 3.5-5.1 Count Includes [facility] ([place]) Comment on above: Order Comment: cc ronnie hinton to Dr. Jay Jay Li F: [phone] Performed By: #### A MANDO, CBC, GFR, A1C, CMP, ADIFF #### [address] [address] Sodium [Moles/Vol] 144 mmol/L Normal 136-145 [facility] ([place]) Comment on above: Order Comment: nedra hinton to Dr. Jay Jay Li F: [phone] Performed By: #### A MANDO, CBC, GFR, A1C, CMP, ADIFF #### [address] [address] Total Protein 7.7 G/dL Normal 6.4-8.2 Count Includes [facility] ([place]) Comment on above: Order Comment: nedra hinton to Dr. Jay Jay Li F: [phone] Performed By: #### A MANDO, CBC, GFR, A1C, CMP, ADIFF #### [address] [address] Urea nitrogen [Mass/Vol] 20 mg/dL High 7-18 Count Includes [facility] ([place] Comment on above: Order Comment: nedra hinton to Dr. Jay Jay Li F: [phone] Performed By: #### A MANDO, CBC, GFR, A1C, CMP, ADIFF #### [address] [address] BMP with eGFRon 02-10-2023 AGE [address] [facility] Comment on above: Performed By: #### 2 24215 #### [facility],[address] [place] [address] Anion gap [Moles/Vol] 12 mmol/L Normal 10 - 20 [facility] Comment on above: Performed By: #### 2 07207 #### [facility],[address] [place] [address] BMP with eGFR Normal [facility] Comment on above: Result Comment: BASI C METABOLIC PANEL Performed By: #### 2 14858 #### [facility],[address] [place] [address] Calcium [Mass/Vol] 9.1 mg/dL Normal 8.5 - 10.1 [facility] Comment on above: Performed By: #### 2 96144 #### [facility],[address] [place] [address] Chloride [Moles/Vol] 107 mmol/L Normal 98 - 107 [facility] Comment on above: Performed By: #### 2 02991 #### [facility],[address] [place], [place] [id number] CO2 [Moles/Vol] 26.1 mmol/L Normal 21.0 - 32.0 [facility] Comment on above: Performed By: #### 2 92825 #### [facility],[address] [place], [place] [address] Creatinine [Mass/Vol] 0.71 mg/dL Normal 0.70 - 1.30 [facility] Comment on above: Performed By: #### 2 69220 #### [facility],[address] [place] [address] GFR/1.73 sq M.predicted among non-blacks MDRD (S/P/Bld) [Vol rate/Area] mL/min/{1.73_m2} Normal 60 - 999 [facility] Comment on above: Performed By: #### 2 16511 #### [facility],[address] [place], [place] [id number] Result Comment: ACCO RDING TO THE NATIONAL KIDNEY DISEASE EDUCATION PROGRAM(NKDE), A NORMAL eGFR IS A VALUE GREATER THAN OR EQUAL TO 60 ML/MIN/1.73 SQ METERS. CHRONIC KIDNEY DISEASE: <60mL/MIN/1.73 SQ METERS KIDNEY FAILURE: <15mL/MIN/1.73 SQ METERS THIS TEST SHOULD ONLY BE USED FOR PATIENTS 18 YEARS OF AGE AND OLDER. Glucose [Mass/Vol] 94 mg/dL Normal 74 - 106 [facility] Comment on above: Performed By: #### 2 77369 #### [facility],[address] [place] [address] Potassium [Moles/Vol] 4.0 mmol/L Normal 3.5 - 5.1 [facility] Comment on above: Performed By: #### 2 00400 #### [facility],[address] [place] [address] Sodium [Moles/Vol] 141 mmol/L Normal 136 - 145 [facility] Comment on above: Performed By: #### 2 15246 #### [facility],[address] [place] [address] Urea nitrogen [Mass/Vol] 17 mg/dL Normal 7 - 18 [facility] Comment on above: Performed By: #### 2 37943 #### [facility],[address] [place] [address] CBC + DIFFon 02-10-2023 Baso # 0.00 x10EE3/UL Normal 0.00 - 0.10 [facility] Comment on above: Performed By: #### 2 82496 #### [facility],[address] [place] [address] Basophils/100 WBC (Bld) 0.6 % Normal 0.0 - 2.0 [facility] Comment on above: Performed By: #### 2 35512 #### [facility],[address] [place] [address] CBC + DIFF Normal [facility] Comment on above: Result Comment: CBC- COMPLETE BLOOD COUNT Performed By: #### 2 33305 #### [facility],[address] [place] [address] EO # 0.10 x10EE3/UL Normal 0.00 - 0.50 [facility] Comment on above: Performed By: #### 2 67157 #### [facility],[address] [place] [address] Eosinophils/100 WBC (Bld) 1.6 % Normal 0.0 - 7.0 [facility] Comment on above: Performed By: #### 2 45208 #### [facility],[address] [place], [place] [address] Erythrocyte distribution width (RBC) [Ratio] 13.2 % Normal 12.0 - 15.6 [facility] Comment on above: Performed By: #### 2 34130 #### [facility],[address] [place] [address] Hematocrit (Bld) [Volume fraction] 43.2 % Normal 40.0 - 52.0 [facility] Comment on above: Performed By: #### 2 69139 #### [facility],[address] [place] [address] Hemoglobin (Bld) [Mass/Vol] 14.8 g/dL Normal 13.0 - 17.5 [facility] Comment on above: Performed By: #### 2 [id number] #### [facility],[address] [place] [address] 03619 Lymph # 0.90 x10EE3/UL Normal 0.80 - 2.80 [facility] Comment on above: Performed By: #### 2 [id number] #### [facility],[address] [place] [address] 66672 Lymphocytes/100 WBC (Bld) 23.8 % Normal 20.0 - 45.0 [facility] Comment on above: Performed By: #### 2 [id number] #### [facility],[address] [place] [address] 98786 MANUAL DIFF N/A Normal [facility] Comment on above: Performed By: #### 2 [id number] #### [facility],[address] [place] [address] 97961 MCH (RBC) [Entitic mass] 33 pg Normal 27 - 33 [facility] Comment on above: Performed By: #### 2 [id number] #### [facility],[address] [place] [address] 64612 MCHC 34 X10 3 Normal 32 - 36 [facility] Comment on above: Performed By: #### 2 33346 #### [facility],[address] [place] [address] 55121 MCV (RBC) [Entitic vol] 96 fL Normal 81 - 98 [facility] Comment on above: Performed By: #### 2 [id number] #### [facility],[address] [place] [address] [place] # 0.40 x10EE3/UL Normal 0.20 - 1.00 [facility] Comment on above: Performed By: #### 2 94135 #### [facility],[address] [place] [address] 62227 MONOS % 10.9 % High 0.0 - 10.0 [facility] Comment on above: Performed By: #### 2 [id number] #### [facility],[address] [place] [address] 10146 Morphology Colten (Bld) [Interp] N/A Normal [facility] Comment on above: Result Comment: {CD] Performed By: #### 2 [id number] #### [facility],[address] [place] [address] Neut # 2.30 x10EE3/UL Normal 1.50 - 7.10 [facility] Comment on above: Performed By: #### 2 [id number] #### [facility],[address] [place], [place] [id number] Neutrophils/100 WBC (Bld) 63.1 % Normal 46.0 - 76.0 [facility] Comment on above: Performed By: #### 2 31489 #### [facility],[address] [place] [address] 73763 PLATELET 207 x10EE3/UL Normal 150 - 450 [facility] Comment on above: Performed By: #### 2 08245 #### [facility],[address] [place] [address] 29672 Platelet mean volume (Bld) [Entitic vol] 7.1 fL Normal 6.4 - 10.5 [facility] Comment on above: Result Comment: AUTO MATED DIFFERENTIAL Performed By: #### 2 [id number] #### [facility],[address] [place] [address] 02294 RBC 4.52 x 10EE6/UL Normal 4.50 - 6.00 [facility] Comment on above: Performed By: #### 2 22264 #### [facility],[address] [place] [address] 34450 WBC 3.6 x 10EE3/UL Low 4.5 - 10.8 [facility] Comment on above: Performed By: #### 2 36660 #### [facility],[address] [place] [address] 96374 CHEST 2 VIEWSon 02-10-2023 CHEST [address] [address] Patient: SREEDHAR HAWKINS Phone#: : 1960 Age: 62 Gender: M Pt. Type: Out Account: [id number] Location: [facility] Ordering: JAY JAY LI Exam Date: 02/10/2023/9:02 Family Phys: JAIME ROACH Charge Code: 956926 Physician: Dallam Order #: [id number] Dose#: PROCEDURE: X-RAY CHEST 2 VIEWS COMPARISON: [...] Coon MD on 02/10/2023 at 11:[address] [facility] LABORATORYOrdered By: SYSTEM SYSTEM on 07-24-2022 [...] ANES Adrienne 01-28-2017 ANES POST HNO ID: [id number] thor: Jose Ramon Keith: AnesthesiologyAuthor Type: AnesthesiologistType: Anesthesia PostOpFiled: 01/28/2017 11:30 AMNote Text:REGIONAL ANESTHESIOLOGY POST ANESTHESIA NOTEPATIENT NAME: Cyndee HawkinsN: [id number]: [id number]: 136/85Pulse: 68Resp: 18Temp: 36.5 ?C (97.7 ?F)TempSrc: [...] Causey MDDATE: January 28, 2017TIME: 11:30 AM [facility] ANE PREOPon 01-28-2017 ANES PREOP HNO ID: [id number] thor: Jose Ramon CauseyService: AnesthesiologyAuthor Type: AnesthesiologistType: Anesthesia PreOpFiled: 01/28/2017 10:00 AMNote Text:REGIONAL ANESTHESIOLOGY DAY OF SURGERY NOTEPATIENT NAME: Cyndee HawkinsMRN: [id number](s) (LRB):EXCISION AND REPAIR OF > 1/4 OF EYELID W/GRAFT (Right)Surgeon(s):Valdo Hartman LocastroVitals:There were no vitals filed for [...] contains updated information obtained within 48 hours ofSurgery/Procedure.SIGNATUR E: Jose Ramon Causey, MDDATE: January 28, 2017TIME: 9:48 AM [facility] HISTORY PHYSICALon 7 HISTORY PHYSICAL HNO ID: [id number] thor: Valdo Torrez: OphthalmologyAuthor Type: PhysicianType: HANDPFiled: 01/28/2017 10:38 AMNote [...] January 28, 2017 : 10:37 AM PAGER: [facility] OPERATIVE NOon 01-28-2017 OPERATIVE NO HNO ID: [id number] thor: Valdo Torrez: OphthalmologyAuthor Type: PhysicianType: Operative ReportFiled: 01/28/2017 11:07 AMNote Text: OPERATIVE/PROCEDURE REPORT OPHTHAMOLOGYLOG ID: [id number]/Procedure Date: 01/28/2017Incision/Procedure Start Time: 10:45 AMIncision Close/Procedure End Time: 11:02 AMSurgeon(s)/Proceduralist(s ) and School Bus Driver/Teacher Assistant(s):Surgeon(s) and Role: * Valdo Ann - PrimaryProcedure(s): Procedure(s) (LRB):EXCISION AND REPAIR OF > 1/4 OF EYELID W/GRAFT (Right)Preoperative Diagnosis: 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]Postoperative Diagnosis: Squamous cell cancer of skin of [...] 28, 2017 : 11:06 AM PAGER/CONTACT #: [facility] HOSPon 01-03-2017 Weight Patient:Reynaldo Hawkins RMRN: Height:5' 10.5(1.791 m)Weight:209 lb (94.802 kg)Outpatient Medications as of 01/28/17:FLUoxetine (PROZAC) 20 mg capsulemirtazapine (REMERON) 30 mg tabletAdmission/Clinic Administered Medications as of 01/28/17:lactated ringers infusionProblem List:Special screening for malignant neoplasms, colon [Z12.11]Diarrhea [R19.7]Allergies:No Known AllergiesDate Verified:01/28/17Lab ValuesNo results within the last 30 days for the following basenames: K,HCTNo progress notes entered within the past 30 days [facility] Vital Signs Date Time Vital Sign Value Performing Clinician Ezekiel brown 12-11-2024 09:07-0400 Body weight 94.35 kg Marcelino Barahona DO Work Phone: [facility] 12-11-2024 09:07-0400 Diastolic blood pressure 93 mm[Hg] Marcelino Barahona DO Work Phone: [facility] [employer] 12-11-2024 09:07-0400 Heart rate 88 /min Marcelino Barahona DO Work Phone: [facility] [employer] 12-11-2024 09:07-0400 Systolic blood pressure 124 mm[Hg] Marcelino Barahona DO Work Phone: [facility] 08-19-2023 17:05-0400 Body temperature 97.52 [degF] KEREN GARCIA MD [facility] 08-19-2023 17:05-0400 Body weight 97.3 kg KEREN GARCIA MD [facility] 08-19-2023 17:05-0400 Diastolic Blood Pressure Non-Invasive 82 mm[Hg] KEREN GARCIA MD [facility] 08-19-2023 17:05-0400 Heart rate 67 /min KEREN GARCIA MD [facility] 08-19-2023 17:05-0400 Respiratory rate 16 /min KEREN GARCIA MD [facility] 08-19-2023 17:05-0400 Systolic Blood Pressure Non-Invasive 151 mm[Hg] KEREN GARCIA MD [facility] 06-28-2023 16:56-0500 Diastolic Blood Pressure Non-Invasive 75 mm[Hg] DR GINA HOWARD MD [facility] 06-28-2023 16:56-0500 Heart rate 60 /min DR GINA HOWARD MD [facility] 06-28-2023 16:56-0500 Reason For Taking VItal Signs DR GINA HOWARD MD [facility] 06-28-2023 16:56-0500 Respiratory rate 18 /min DR GINA HOWARD MD [facility] 06-28-2023 16:56-0500 Systolic Blood Pressure Non-Invasive 135 mm[Hg] DR GINA HOWARD MD [facility] 06-28-2023 15:37-0500 Body temperature 97.16 [degF] DR GINA HOWARD MD [facility] 06-28-2023 15:37-0500 Diastolic Blood Pressure Non-Invasive 77 mm[Hg] DR GINA HOWARD MD [facility] 06-28-2023 15:37-0500 Heart rate 64 /min DR GINA HOWARD MD [facility] 06-28-2023 15:37-0500 Respiratory rate 18 /min DR GINA HOWARD MD [facility] 06-28-2023 15:37-0500 Systolic Blood Pressure Non-Invasive 154 mm[Hg] DR GINA HOWARD MD [facility] Encounters Encounter Date Encounter Type Care Provider Facility Start: 01-09-2025 ambulatory Anna Vega Facility: [facility] Start: 01-07-2025 End: 01-07-2025 ambulatory Anna Vega Facility:[facility] Start: 01-04-2025 ambulatory Sebastián Hsu Facility: [facility] Start: 01-03-2025 End: 01-03-2025 ambulatory Anna Vega Facility:[facility] Start: 01-01-2025 End: 01-01-2025 ambulatory Anna Vega Facility:[facility] Start: 12-27-2024 End: 12-27-2024 ambulatory Sebastián Hsu Facility:[facility] Start: 12-24-2024 End: 12-24-2024 ambulatory Sebastián Hsu Facility:[facility] Start: 12-20-2024 ambulatory Anna Vega Facility: [facility] Start: 12-19-2024 End: 12-19-2024 ambulatory Anna Vega Facility:[facility] Start: 12-12-2024 End: 12-12-2024 ambulatory ANNA VEGA DO Facility:[facility] Start: 12-12-2024 End: 12-12-2024 Patient encounter procedure ANNA VEGA DO [facility] Start: 12-11-2024 End: 12-11-2024 Office outpatient new 60 minutes Marcelino Barahona DO Work Phone: [facility] - [place] Comment on above: Esophageal dysphagia (Primary Dx) Start: 12-11-2024 End: 12-11-2024 ambulatory ANNA VEGA [facility] Start: 12-05-2024 End: 12-05-2024 Emergency department patient visit Anna Vega Facility:[facility] Start: 12-03-2024 End: 12-03-2024 Emergency department patient visit AUDRA CLIFTONaSndra DO [facility] Start: 12-01-2024 End: 12-01-2024 Emergency department patient visit Anna Vega Facility:[facility] Start: 11-30-2024 ambulatory Car Woodson Facility :[facility] Start: 11-30-2024 End: 11-30-2024 ambulatory Anna Vega Facility:[facility] Start: 11-22-2024 End: 11-22-2024 ambulatory ANNA VEGA DO Facility[facility] Start: 11-22-2024 End: 11-22-2024 Patient encounter procedure ANNA VEGA DO [facility] Start: 11-20-2024 End: 11-20-2024 ambulatory ANNA VEGA DO Facility:[facility] Start: 11-20-2024 End: 11-20-2024 Patient encounter procedure ANNA VEGA DO [facility] Start: 10-23-2024 End: 10-23-2024 ambulatory Anna Wiltonko Facility:[facility] Start: 07-31-2024 End: 07-31-2024 ambulatory Anna Halko Facility:[facility] Start: 07-27-2024 End: 07-27-2024 ambulatory ANNA HALKO DO Facility:[facility] Start: 07-24-2024 End: 08-13-2024 ambulatory ANNA HALKO DO [facility] Start: 05-10-2024 End: 05-10-2024 ambulatory ANNA HALKO DO [facility] Start: 05-10-2024 End: 05-10-2024 Patient encounter procedure ANNA WILTONKO DO [facility] Start: 05-02-2024 End: 05-02-2024 ambulatory Anna Halko Facility:[facility] Start: 02-14-2024 End: 02-14-2024 ambulatory ANNA HALKO DO [facility] Start: 02-14-2024 End: 02-14-2024 Patient encounter procedure FELIZ ALEXANDER DOCUMENTATION SPEC [facility] Start: 01-26-2024 End: 01-26-2024 ambulatory Anna Vega Facility:[facility] Start: 11-25-2023 End: 12-27-2023 ambulatory ANNA HALKO DO Facility:[facility] Start: 11-25-2023 End: 12-27-2023 Physical therapy management ANNA HALKO DO [facility] Start: 10-04-2023 End: 11-18-2023 Admission to same day surgery center PETAR CROW [facility] Start: 10-04-2023 End: 11-18-2023 ambulatory PETAR CROW Facility:[facility] Start: 08-19-2023 End: 08-19-2023 Emergency department patient visit KEREN GARCIA MD [facility] Start: 08-18-2023 End: 08-18-2023 ambulatory ANNA GUNTERKO Facility:[facility] Start: 08-18-2023 End: 08-18-2023 Patient encounter procedure ANNA HALKO DO [facility] Start: 07-07-2023 End: 07-07-2023 ambulatory ANNA GUNTERKO DO Facility:[facility] Start: 07-07-2023 End: 07-07-2023 Patient encounter procedure ANNA GUNTERKO DO [facility] Start: 07-05-2023 End: 08-08-2023 ambulatory ANNA GUNTERKO DO Facility:[facility] Start: 07-05-2023 End: 08-08-2023 Physical therapy management ANNA VEGA DO [facility] Start: 06-28-2023 End: 06-28-2023 Emergency department patient visit DR GINA HOWARD MD [facility] Start: 03-03-2023 End: 05-02-2023 Admission to same day surgery center JAY JAY LI MD [facility] Start: 03-03-2023 End: 05-02-2023 ambulatory JAY JAY LI MD Facility:[facility] Start: 02-28-2023 End: 03-01-2023 ambulatory JAY JAY LI [facility] Start: 02-24-2023 End: 02-24-2023 ambulatory ANNA GARY Facility:[facility] Start: 02-24-2023 End: 02-24-2023 Patient encounter procedure ANNA GUNTERKO DO [facility] Start: 02-16-2023 End: 02-20-2023 ambulatory ANNA GUNTERKO Facility:[facility] Start: 02-16-2023 End: 02-20-2023 Encounter for other preprocedural examination ANNA WILTONCAREY PIERCE Facility:[facility] Start: 02-10-2023 End: 02-10-2023 ambulatory JAY JAY Price [facility] Start: 10-08-2022 End: 10-08-2022 Patient encounter procedure ANNA VEGA DO [facility] Start: 07-24-2022 End: 07-24-2022 Patient encounter procedure ANNA VEGA DO [facility] Start: 05-19-2022 End: 06-15-2022 Physical therapy management ANNA VEGA DO [facility] Start: 05-04-2022 End: 05-04-2022 Patient encounter procedure ANNA VEGA DO [facility] Start: 07-27-2021 End: 07-27-2021 Discharged [facility] Start: 04-18-2021 End: 04-18-2021 Patient encounter procedure ANNA VEGA DO [facility] Start: 01-28-2017 End: 01-28-2017 Ambulatory [facility] Procedures Date Procedure Procedure Detail Performing Clinician Start: 01-21-2014 Other (qualifier value) ANNA GARY PIERCE Comment on above: septoplasty, Dr. Seferino farley, [facility] Start: 08-03-2013 Ankle region structu re (body structure) ANNA VEGA DO Comment on above[facility] medial malleolus Start: 06-06-2007 Prosthetic arthropla sty of the hip ANNA VEGA DO Comment on above: Right Knee region structur e (body structure) ANNA VEGA DO Comment on above: Arthroscopy - Left k nee - calcium deposits Tube (qualifier value) MARE NOGUEIRA GARY DO Comment on above: in ear: bilateral Plan of Treatment Date Care Activity Detail Author Start: 02-06-2032 DTaP/Tdap/Td Vaccines (3 - Td or Tdap) DTaP/Tdap/Td Vaccines (3 - Td or Tdap) [facility] Start: 02-04-2025 Influenza vaccination Influenza Vaccine (#1) [facility] Start: 01-10-2025 ambulatory Ambulatory Facility:[facility] Start: 02-05-2024 COVID-19 Vaccine ( season) COVID-19 Vaccine ( season) [facility] Start: 04-12-2021 Pneumococcal Vaccine: 50+ Years (2 of 2 - PPSV23) Pneumococcal Vaccine: 50+ Years (2 of 2 - PPSV23) [facility] Start: 2020 RSV Immunization for Adults (1 - Risk 60-74 years 1-dose series) RSV Immunization for Adults (1 - Risk 60-74 years 1-dose series) [facility] Start: 1978 Diabetes mellitus screening Diabetes Screening [facility] Start: 1978 Hepatitis C screening Hepatitis C Screening [facility] Start: 1972 Depression Monitoring Depression Monitoring [facility] Start: 1961 MMR Vaccines (1 of 1 - Standard series) MMR Vaccines (1 of 1 - Standard series) [facility] Start: 1960 Annual wellness visit Medicare Initial Physical (IPPE) [facility] Start: 1960 HIV screening HIV Screening [facility] Start: 1960 Lipid panel Lipid Panel [facility] Start: 1960 Screening for malignant neoplasm of colon [facility] Immunizations Immunization Date Immunization Notes Care Provider Fa cility 03-02-2024 influenza, injectabl e, quadrivalent, contains preservative; Translations: [Fluarix PF Prefilled Syringe ] ANNA VEGA DO [facility] 03-02-2024 influenza virus vaccine, unspecified formulation Marcelino Barahona DO Work Phone: [facility] 03-26-2022 COVID-19, mRNA, LNP- S, bivalent booster, PF, 30 mcg/0.3 mL dose; Translations: [Pfizer-BioNTech COVID-19 (12y+) Bivalent Booster Vaccine PF] ANNA VEGA DO [facility] 03-26-2022 SARSCoV2 mRNA(cawnhimvazp75v+)b ival vac; Translations: [Pfizer-BioNTech COVID-19 (12y+) Bivalent Booster Vaccine PF] DR GINA HOWARD MD [facility] 03-06-2022 influenza virus vaccine, unspecified formulation ANNA VEGA DO [facility] Comment on above: Result Comment: at [facility] 02-05-2022 tetanus toxoid, reduced diphtheria toxoid, and acellular pertussis vaccine, adsorbed; Translations: [Boostrix (Tdap)] ANNA VEGA DO [facility] 04-13-2021 COVID-19, mRNA, LNP- S, PF, 100 mcg/ 0.5 mL dose; Translations: [Moderna COVID-19 Vaccine] ANNA VEGA DO [facility] 03-06-2021 influenza virus vaccine, unspecified formulation ANNA VEGA DO [facility] Comment on above: Result Comment: at [facility] 10-04-2020 SARS-CoV-2 (COVID-19 ) mRNA-1273 vaccine ANNA VEGA DO [facility] Comment on above: Result Comment: [facility] 09-06-2020 SARS-CoV-2 (COVID-19 ) mRNA-4049 vaccine ANNA VEGA DO [facility] Comment on above: Result Comment: [facility] 04-12-2020 pneumococcal conjuga te vaccine, 13 valent ANNA VEGA DO [facility] Comment on above: Result Comment: [facility] 04-12-2020 zoster vaccine recombinant ANNA VEGA DO [facility] Comment on above: Result Comment: [facility] 02-08-2020 zoster vaccine recombinant ANNA VEGA DO [facility] 04-06-2015 influenza virus vaccine, unspecified formulation ANNA VEGA DO [facility] 02-04-2014 influenza virus vaccine, unspecified formulation ANNA VEGA DO [facility] 01-21-2014 Influenza virus vaccine [facility] Work Phone: 06-06-2013 influenza virus vaccine, unspecified formulation ANNA VEGA DO [facility] 03-31-2010 tetanus toxoid, reduced diphtheria toxoid, and acellular pertussis vaccine, adsorbed ANNA VEGA DO [facility] Payers Date Payer Category Payer Commercial Managed C are - HMO MMO SUPERMED [id number] 2024 Self-pay [id number] 2023 Unknown [id number] 2022 Private Health Insurance [id number] 1960 Unknown [id number] 2.16.840.1.199468.3.579.2. 627 1960 Unknown [id number] 2.16.840.1.551916.3.579.2. 627 1960 Unknown [id number] 2.16.840.1.885784.3.579.2. 627 1960 Unknown [id number] 2.16.840.1.802110.3.579.2. 627 1960 Unknown [id number] 2.16.840.1.642974.3.579.2. 627 1960 Unknown [id number] 2.16.840.1.767058.3.579.2. 627 1960 Unknown [id number] 2.16.840.1.649543.3.579.2. 627 1960 Unknown [id number] 2.16.840.1.744343.3.579.2. 627 1960 Unknown [id number] 2.16.840.1.683845.3.579.2. 627 1960 Unknown [id number] 2.16.840.1.914001.3.579.2. 627 1960 Unknown [id number] 2.16.840.1.449392.3.579.2. 627 1960 Unknown [id number] 2.16.840.1.417404.3.579.2. 627 1960 Unknown [id number] 2.16.840.1.136845.3.579.2. 627 1960 Unknown [id number] 2.16.840.1.669052.3.579.2. 627 1960 Unknown [id number] 2.16.840.1.112647.3.579.2. 627 1960 Unknown [id number] 2.16.840.1.571138.3.579.2. 627 1960 Unknown [id number] 2.16.840.1.762287.3.579.2. 627 1960 Unknown [id number] 2.16.840.1.736836.3.579.2. 627 1960 Unknown [id number] 2.16.840.1.416136.3.579.2. 651 1960 Unknown [id number] 2.16.840.1.907823.3.579.2. 651 Unknown SELF PAY INSURANCE [id number] Unknown [id number] 2.16.840.1.837788.3.579.2. 462 Unknown [id number] 2.16.840.1.395473.3.579.2. 462 Unknown [id number] 2.16.840.1.130633.3.579.2. 462 Unknown [id number] 2.16.840.1.727181.3.579.2. 462 Unknown [id number] 2.16.840.1.832994.3.579.2. 462 Unknown [id number] 2.16.840.1.088309.3.579.2. 462 Unknown [id number] 2.16.840.1.177383.3.579.2. 462 Unknown [id number] 2.16.840.1.514674.3.579.2. 462 Unknown [id number] 2.16.840.1.789642.3.579.2. 462 Unknown [id number] 2.16.840.1.919523.3.579.2. 462 Unknown [id number] 2.16.840.1.084181.3.579.2. 462 Unknown [id number] 2.16.840.1.520878.3.579.2. 462 Unknown [id number] 2.16.840.1.678392.3.579.2. 462 Unknown [id number] 2.16.840.1.090782.3.579.2. 462 Unknown [id number] 2.16.840.1.676471.3.579.2. 462 Unknown [id number] 2.16.840.1.439857.3.579.2. 462 Unknown [id number] 2.16.840.1.734612.3.579.2. 462 Unknown [id number] 2.16.840.1.231998.3.579.2. 462 Unknown [id number] 2.16.840.1.319826.3.579.2. 462 Unknown [id number] 2.16.840.1.313011.3.579.2. 462 Social History Date Type Detail Facility Start: 02-13-2019 End: 12-03-2024 Never smoked tobacco (finding) [facility] Sex Assigned At [facility] Start: 01-23-2014 [facility] Work Phone: Start: 01-21-2014 None [facility] Work Phone: Start: 01-21-2014 [facility] Work [facility]: Start: 01-21-2014 Non-smoker [facility] Work Phone: Start: 1960 Sex Assigned At Male [facility] Work Phone: Start: 07-15-2005 End: 01-04-2022 Sex Male (finding) [facility] Start: 12-11-2024 Tobacco use and exposure Smokeless tobacco non-user [facility] Start: 12-11-2024 Alcoholic beverage intake Ex-drinker (finding) [facility] Start: 12-11-2024 History of Social function [facility] Start: 12-11-2024 Tobacco use panel [facility] Start: 1960 Sex assigned at Not on file S [facility] Functional Status Date Assessment Result Facility 11-25-2023 [...] UE symptoms with neck ROM all planes 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 strength: 85lbs R, 90Lbs L Thoracic mobility: marked stiffness with accessory mobility assessment with report of positive response to assessment [facility] 10-04-2023 Functional Status Home Living Ad ditional [...] compliant with alisha hose AROM: 30-85 PROM: 9-88 [facility] 08-19-2023 Functional Status ID band on, Call device within reach, Bed in low position, Wheels locked, Visitor at bedside [facility] 01-23-2024 Functional Status ID band on, Call device within reach, Bed in low position, Wheels locked, Upper/Half-Length side-rails up, Bedside Cart Locked, Visitor at bedside, Safety level maintained [facility] 06-28-2023 Functional Status [facility] 03-03-2023 Functional Status Home Living Ad [...] compliant with alisha hose AROM: 32-83 PROM: 10- [facility] 05-19-2022 Functional Status Home Living Ad ditional [...] line tendernes son the L is noted. [facility] Mental Status Date Assessment Result Facility 08-19-2023 Mental Status Oriented x 4 [facility] 06-28-2023 Mental Status Orientation Foll ows simple commands, Other: pt has developmental delay [facility] Clinical Notes 04-25-2023 to 01-01-2025 Marcelino Barahona DO - 12/11/2024 9:00 AM EDT Note Date & Type Note Facility 01-01-2025 Note [facility] Medical Records Department [address] [place] [address] History Physical Exam 01/01/25 1120 MR#: [id number] Acct: [id number] Name: CYNDEE HAWKINS Rep #: [id number] : 1960 64 From: Car Woodson DO PCP: Dr. Anna Vega DO Status:[facility] Location: [place] [address] HPI - General General Date of Admission: 01/01/25 Date of Service: 01/01/25 HPI Narrative CYNDEE HAWKINS, is a 64 M with developmental delay, autism and anxiety presented with dysphagia. Swallow study showed irregular stricture at the GE junction. Upper GI endoscopy on 11/30/2024 showed large fungating mass with bleeding about 36 cm from the incisors. Stenting was done. 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 He was seen CT surgery at [facility] on 12/11/2024 neoadjuvant chemoradiation therapy followed by surgery versus definitive chemoradiation therapy with discussed. He had a PET CT scan on 12/12/2024 which showed hypermetabolic activity in the lower esophagus near the GE junction with no lymph nodes. Stent had migrated into the gastric body. He comes in today for stent removal and PEG tube placement. [facility] Medical History Tricuspid valve regurgitation Mitral valve regurgitation Autism Cancer History of Mohs micrographic surgery for skin cancer (11/26/24) Chronic constipation Wears hearing aid Wears glasses Anxiety Prostate disease Back pain OCD (obsessive compulsive disorder) Non-smoker History of stress test Intellectual disability Obsessive compulsive disorder Hearing problem History of emotional problems Arthritis Home Medications ???Medication ???Instructions ???Recorded ???Last Taken ???Type sertraline 100 mg tablet 200 mg PO DAILY 11/29/24 01/01/25 08:00 History amitriptyline 25 mg tablet 25 mg PO DAILY 12/05/24 01/01/25 0 8:00 History famotidine 20 mg tablet 20 mg PO DAILY 12/05/24 Unknown Hi story hydrocodone-acetaminophen 5-325mg 1 tab PO Q6H PRN PRN pain 5 Unknown History 5mg-325mg lidocaine HCl 2 % mucosal solution 1 applic mucous membrane TID PRN 12/05/24 Unknown Rx (Lidocaine Viscous) pain #300 mL bupropion HCl 150 mg 24 hr tablet, 300 mg PO QDAY 12/19/24 01/01/25 08:00 History extended release Allergy/AdvReac Type Severity Reaction Status Date / Time No Known Allergies Allergy Verified 01/01/25 10:42 Family History Other Arthritis Bowel disease Colon cancer Diabetes Heart disease High cholesterol Hypertension Osteoporosis Surgical History History of esophagogastroduodenoscopy (EGD) History of ankle surgery History of tonsillectomy [...] changes Vital Signs Vital Signs Vital Signs: 01/01/25 10:51 01/01/25 10:51 Temperature 96.9 F L Temperature Source Temporal Pulse Rate 95 Respiratory Rate 14 Respiratory Pattern Normal Blood Pressure 124/97 H Blood Pressure Mean 106 Blood Pressure Source Monitor Blood Pressure Position Semi-Fowlers Blood Pressure Location Right Arm Pulse Ox 99 Oxygen Delivery Method Room Air Weight Weight: 196 lb 3.382 oz Body Mass Index (BMI) 27.3 Physical Exam Const alert, oriented x3, no apparent distress and healthy appearing General Appearance: cooperative GI normal to inspection, nondistended, normoactive bowel sounds, soft to palpation, non-tender and non- distended Percussion: normal to percussion Rectal Exam: deferred Assessment Plan Assessment/Plan (1) Dysphagia: (2) Heartburn: PLAN: Assessment and Plan Assessment and Plan (1) Dysphagia: Status: Acute (2) Heartburn: Status: Acute Plan: Discontinue AF BetaFood 0800 TID AC Orders: Orders Swallowing Function w/Video Today R12 - Hea (more content not included)... [facility] 12-18-2024 Note Orders Placed This E ncounter Procedures External referral to Oncology Standing Status: Future Expected Date: 12/18/2024 Expiration Date: 06/20/2025 Referral Priority: Routine Referral Type: Consultation Referral Reason: Specialty Services Required Requested Specialty: Oncology Number of Visits Requested: 1 [facility] 12-11-2024 History of Present illness Narrative Images from the original note were not included. [facility] [address] [facility] [address] Dept: [phone] Dept Loc: [phone] Visit type: New Reason for Visit: Dysphagia, possible esophageal cancer Assessment and plan Mr. Hawkins is a pleasant 64-year-old male who is accompanied today. He has a history of developmental delay autism anxiety. He saw his primary care physician in October 2024 due to concern for dysphagia. A workup was initiated within swallow study. This demonstrated a 2.5 cm irregular stricture at the GE junction. He subsequently underwent EGD with biopsy. Per the guardian, due to the biopsy results a second EGD with stent placement was performed. Their understanding is that the biopsy showed abnormal cells. When asked specifically if this demonstrated cancer, they were unsure. He is scheduled for a PET scan tomorrow in [place] so my suspicion is that this did demonstrate a carcinoma. In the event that this is esophageal cancer, we did discuss the potential treatment strategies. I reviewed the available pathology, imaging, and testing results with the patient. We had a lengthy discussion regarding approaches to this disease and reviewed the most up-to-date NCCN guidelines with the caveat that the final treatment strategy would be dictated by the pathology results as well as the PET scan. Based on the EGD images and CT images, this appears to be at least locally advanced. If there is no distant disease a typical treatment regimen would involve neoadjuvant chemoradiation, followed by restaging, followed by esophagectomy. The patient is concerned about having another big surgery. He asked if there are any alternatives to surgery. We did discuss that definitive chemoradiation is an alternative. This does not preclude a salvage esophagectomy in the event that there is residual disease however it does set off with the intention of a nonsurgical course. At this time he is more interested in this route. I encouraged him to keep his PET scan appointment tomorrow. He lives in [place] and [facility] is much closer to him than [place], so we will plan for referral to medical and radiation oncology in [place]. After completion of PET and obtaining his pathology report, I will plan to touch base with his medical and and radiation oncology team for final synthesis and recommendations. In the meantime I encouraged him to consider his desires for a neoadjuvant surgical approach versus definitive chemoradiation approach with the understanding that we are still gathering information for final recommendation. 1. Esophageal dysphagia History of Present Illness Cyndee Hawkins is a 64 y.o. male referred by Dr. Vega for esophageal cancer. Per note, patient with past medical history significant for anxiety, autism, developmental delay, HLD, hyperostosis, mitral and tricuspid valve regurgitation. Pt saw his PCP (Dr. Vega) on 10/04/24 where he reported dysphagia for several weeks. Pt was seen by ENT (Dr. Vidal) where a flexible laryngoscopy was performed with normal findings. Pt then had a barium esophagram on 11/22/24 which demonstrated diffusely dilated and slightly hypo peristaltic esophagus with a 2.5 cm irregular stricture at the GE junction. Pt underwent EGD with stent placement and biopsy on 11/30/24. Pt was seen in ED on 12/03/24 for epigastric pain, had CT abd/pelvis which demonstrated constipation and a small umbilical hernia. Patient is here today for an evaluation. Past Medical History Medical History[1] Past Surgical History Surgical History[2] Family History Family History[3] Social History Social History[4] Allergies Allergies[5] Medications Current Medications[6] Review of Systems Review of Systems Constitutional: Negative. HENT: Negative. Eyes: Negative. Respiratory: Negative. Cardiovascular: Negative. Gastrointestinal: Dysphagia Endocrine: Negative. Genitourinary: Negative. Musculoskeletal: Negative. Skin: Negative. Allergic/Immunologic: Negative. Neurological: Negative. Hematological: Negative. Psychiatric/Behavioral: Negative. Physical Exam Vitals: BP (!) 124/93 (BP Location: Left arm, Patient Position: Sitting, BP Cuff Size: Large adult) Pulse 88 Wt 208 lb (94.3 kg) Constitutional: General: Not in acute distress. Appearance: Normal appearance. Not toxic-appearing. Ear, nose, mouth: Bilateral external ear and nose normal. Nose: Nose normal. Mouth: Appearance normal, no bleeding, moist mucus membranes Eyes: General: No scleral icterus. No discharge from bilateral eyes Extraocular Movements: Extraocular movements intact. Pupils equal and reactive bilaterally Cardiovascular: Heart: Regular rhythm. Normal heart sounds. Edema: No edema in bilateral lower extremities Pulmonary: Effort: Pulmonary effort is normal. No respiratory distress. Breath sounds: Normal breath sounds. No wheezing. Abdominal: Appearance: Not distended Musculoskeletal: Bilateral upper and lower extremities: Normal range of motion, no deformity Head: Normocephalic and atraumatic. Neck: Normal range of motion and neck supple. No muscular tenderness. Skin: General: Skin is warm and dry. Coloration: Skin is not jaundiced. Neurological: General: No focal deficit present. Cranial Nerves: No obvious cranial nerve deficit. Psychiatric: Mood and Affect: Mood normal. Thought Content: Thought content normal. Patient has good judgement and insight Mental Status: Alert and oriented to place, person, and time. Labs No results found for: WBC, HGB, PLT, NA, K, CREATININE Imaging CT Abd/Pelvis 12/03/24 CXR 12/03/24 Barium Esophagram 11/22/24 ATTESTATION I personally performed the evaluation and management of Cyndee Hawkins in the development of a treatment plan for this patient. I personally interviewed the patient and performed an individual physical examination. In addition, I discussed the patient's condition and treatment options with them. I have also reviewed and agree with the past medical, family and social history unless otherwise noted. All of the patient's questions were answered. I personally spent 60 minutes of time between the face to face encounter, physical exam, reviewing the medical history, coordinating the patient's care, counseling/educating the patient, ordering prescriptions/medications/tests/procedu res, interpreting results and documenting clinical information in the patient's electronic health record on the day of the encounter. Electronically signed by Marcelino Barahona DO, MSLELE Patient Care Team: Anna Vega DO as PCP - General (Family Medicine) Patient Care Team: PCP: Anna Vega DO ENT: Tye Vidal MD Disclaimer INFORMED CONSENT:The nature and purpose of the proposed treatment or procedure have been discussed. The risks and benefits of the proposed treatment or procedures have been reviewed. Alternatives have been reviewed in addition to the risks and benefits of not receiving treatments or undergoing procedures. Pursuant to this discussion, the patient agrees to undergo the proposed treatment or procedure. Captured images seen in this note from are not a substitute for a comprehensive interpretation of the entire data set as reflected by the interpreting physician with regard to radiology, echocardiography, and other diagnostic images. This note may have been dictated using [employer] Practice Edition 2.6 and/or [employer] Voice Recognition Feature. The document was proofread, however unrecognized voice recognition tutoring clinician errors may be present. [1] Past Medical History: Diagnosis Date Anxiety Autism spectrum BPH (benign prostatic hyperplasia) HLD (hyperlipidemia) Mitral valve regurgitation Tricuspid valve regurgitation [2] History reviewed. No pertinent surgical history. [3] Family History Problem Relation Name Age of Onset Hyperlipidemia Mother Coronary artery disease Father [4] Social History Tobacco Use Smoking status: Never Smokeless tobacco: Never Substance Use Topics Alcohol use: Not Currently Drug use: Never [5] No Known Allergies [6] Current Outpatient Medications: amitriptyline (Elavil) 25 MG tablet, Take 25 mg by mouth Nightly., Disp: , Rfl: buPROPion XL (Wellbutrin XL) 300 MG 24 hr tablet, Take 300 mg by mouth daily. Do not crush, chew, or split., Disp: , Rfl: docusate sodium (Colace) 50 MG capsule, Take by mouth., Disp: , Rfl: famotidine (Pepcid) 20 MG tablet, Take 20 mg by mouth 2 times daily., Disp: , Rfl: HYDROcodone-acetaminophen (Thayer) 5-325 MG tablet, Take 1 tablet by mouth every 6 hours as needed for severe pain (7-10)., Disp: , Rfl: lidocaine (Xylocaine) 2 % solution, if needed for mild pain (1-3)., Disp: , Rfl: sennosides (Senokot) 8.6 MG tablet, Take 2 tablets by mouth Daily as needed for constipation., Disp: , Rfl: sertraline (Zoloft) 100 MG tablet, Take 200 mg by mouth Nightly., Disp: , Rfl: acetaminophen (Tylenol) 500 MG tablet, Take 1,000 mg by mouth every 6 hours as needed for mild pain (1-3). (Patient not taking: Reported on 12/11/2024), Disp: , Rfl: gabapentin (Neurontin) 300 MG capsule, Take 300 mg by mouth 3 times daily. (Patient not taking: Reported on 12/11/2024), Disp: , Rfl: hydrOXYzine HCl (Atarax) 10 MG tablet, Take 20 mg by mouth 3 times daily. (Patient not taking: Reported on 12/11/2024), Disp: , Rfl: meloxicam (Mobic) 15 MG tablet, Take 15 mg by mouth daily. (Patient not taking: Reported on 12/11/2024), Disp: , Rfl: tamsulosin (Flomax) 0.4 MG 24 hr capsule, Take 0.8 mg by mouth daily. (Patient not taking: Reported on 12/11/2024), Disp: , Rfl: documented in this encounter [facility] 12-03-2024 Hospital Discharge instructions Patient Education 12/03/2024 04:31:57 Gastritis or Ulcer (No Antibiotic Treatment) Gastritis or Ulcer, No Antibiotic Treatment Gastritis is irritation and inflammation of the stomach lining. This means the lining is red and swollen. It can cause shallow sores in the stomach lining called erosions. An ulcer is a deeper open sore in the lining of the stomach. It may also occur in the first part of the small intestine (duodenum). The causes and symptoms of gastritis and ulcers are very similar. Causes and risk factors for both problems can include: Long-term use of nonsteroidal anti-inflammatory drugs (NSAIDs), such as aspirin and ibuprofen H. pylori bacteria infection Tobacco use Alcohol use Certain other conditions such as immune disorders, certain medicines (high-dose iron supplements) and street drugs (such as cocaine) Symptoms for both problems can include: Dull or burning pain in the upper part of the belly Loss of appetite Heartburn or upset stomach Frequent burping Bloated feeling Nausea with or without vomiting You likely had an evaluation to help find the exact cause and extent of your problem. This may have included a health history, exam, and certain tests. Results showed that your problem is not due to H. pylori infection. For this reason, you don't need antibiotics as part of your treatment. Whether your problem is gastritis or an ulcer, you will still need to take other medicines, however. You will also need to follow instructions to help reduce stomach irritation so your stomach can heal. Home care Take any medicines you re prescribed exactly as directed. Common medicines used to treat gastritis include: oAntacids. These help neutralize the normal acids in your stomach. oProton pump inhibitors. These block your stomach from making any acid. oH2 blockers. These reduce the amount of acid your stomach makes. oBismuth subsalicylate. This helps protect the lining of your stomach from acid. Don't take any NSAIDs during your treatment. If you take NSAID to help treat other health problems, tell your healthcare provider. He or she may need to adjust your medicine plan or change the dosage. Don t use tobacco. Also don t drink alcohol. These products can increase the amount of acid your stomach makes. This can delay healing. It can also worsen symptoms. Follow-up care Follow up with your healthcare provider, or as advised. In some cases, more testing may be needed. When to seek medical advice Call your healthcare provider right away if any of these occur: Fever of 100.4 F (38 C) or higher, or as directed by your healthcare provider Stomach pain that worsens or moves to the lower right part of belly Extreme fatigue Weakness or dizziness Continued weight loss Frequent vomiting, blood in your vomit, or coffee ground-like substance in your vomit Black, tarry, or bloody stools Call 911 Call 911 if any of these occur: Chest pain appears or worsens, or spreads to the back, neck, shoulder, or arm Unusually fast heart rate Trouble breathing or swallowing Confusion Extreme drowsiness or trouble waking up Fainting Large amounts of blood present in vomit or stool [id number] [employer]. [address] [place] [address], [place] [address]. All rights reserved. This information is not intended as a substitute for professional medical care. Always follow your healthcare professional's instructions. 12/03/2024 04:31:48 Constipation (Adult) Constipation (Adult) Constipation means that you have bowel movements that are less frequent than usual. Stools often become very hard and difficult to pass. Constipation is very common. At some point in life, it affects almost everyone. Since everyone's bowel habits are different, what is constipation to one person may not be to another. Your healthcare provider may do tests to diagnose constipation. It depends on what he or she finds when evaluating you. Symptoms of constipation include: Abdominal pain Bloating Vomiting Painful bowel movements Itching, swelling, bleeding, or pain around the anus Causes Constipation can have many causes. These include: Diet low in fiber Too much dairy Not drinking enough liquids Lack of exercise or physical activity (especially true for older adults) Changes in lifestyle or daily routine, including , aging, work, and travel Frequent use or misuse of laxatives Ignoring the urge to have a bowel movement or delaying it until later Medicines, such as certain prescription pain medicines, iron supplements, antacids, certain antidepressants, and calcium supplements Diseases like irritable bowel syndrome, bowel obstructions, stroke, diabetes, thyroid disease, Parkinson disease, hemorrhoids, and colon cancer Complications Potential complications of constipation can include: Hemorrhoids Rectal bleeding from hemorrhoids or anal fissures (skin tears) Hernias Dependency on laxatives Chronic constipation Fecal impaction, a severe form of constipation in which a large amount of hard stool is in your rectum that you can't pass Bowel obstruction or perforation Home care All treatment should be done after talking with your healthcare provider. This is especially true if you have another medical problems, are taking prescription medicines, or are an older adult. Treatment most often involves lifestyle changes. You may also need medicines. Your healthcare provider will tell you which will work best for you. Follow the advice below to help avoid this problem in the future. Lifestyle changes These lifestyle changes can help prevent constipation: Diet. Eat a high-fiber diet, with fresh fruit and vegetables, and reduce dairy intake, meats, and processed foods Fluids. It's important to get enough fluids each day. Drink plenty of water when you eat more fiber. If you are on diet that limits the amount of fluid you can have, talk about this with your healthcare provider. Regular exercise. Check with your healthcare provider first. Medicines Take any medicines as directed. Some laxatives are safe to use only every now and then. Others can be taken on a regular basis. While laxatives don't cause bowel dependence, they are treating the symptoms. So your constipation may return if you don't make other changes. Talk with your healthcare provider or pharmacist if you have questions. Prescription pain medicines can cause constipation. If you are taking this kind of medicine, ask your healthcare provider if you should also take a stool softener. Medicines you may take to treat constipation include: Fiber supplements Stool softeners Laxatives Enemas Rectal suppositories Follow-up care Follow up with your healthcare provider if symptoms don't get better in the next few days. You may need to have more tests or see a specialist. Call 911 Call 911 if any of these occur: Trouble breathing Stiff, rigid abdomen that is severely painful to touch Confusion Fainting or loss of consciousness Rapid heart rate Chest pain When to seek medical advice Call your healthcare provider right away if any of these occur: Fever of 100.4 F (38 C) or higher, or as directed by your healthcare provider Failure to resume normal bowel movements Pain in your abdomen or back gets worse Nausea or vomiting Swelling in your abdomen Blood in the stool Black, tarry stool Involuntary weight loss Weakness [id number] [employer]. [address] [place] [address]. All rights reserved. This information is not intended as a substitute for professional medical care. Always follow your healthcare professional's instructions. Follow Up Care 12/03/2024 01:51:58 With:CAR WOODSON DO Address: [address] [place], [place] [address]all [facility] [place] [address] [phone] When:2-4 days With:ANNA VEGA DO Address: [address] [place] [id number] [phone] When:2-4 days [facility] 12-03-2024 Note Discharge Instructions Thank you for allowing [facility] to assist you with your healthcare needs. The following is important discharge information regarding your hospital visit. Diagnosis from Today's Visit Epigastric pain What to Do Next Instructions from Your Care Team No qualifying data available. Post Acute Orders No qualifying data available. You Need to Schedule the Following Appointments Follow Up with CAR WOODSON DO When:Within 2-4 days Where:[facility] [address] [place] [address] [phone] Follow Up with ANNA VEGA DO When:Within 2-4 days Where:[address] [place] [phone] Allergies NKA Medications Please ask your primary doctor or pharmacist before taking any other medication not listed, including over the counter drugs, herbal medications, vitamins and or supplements as they may interact with your home medications. What How Much When Why Instructions Last Dose New acetaminophen-hydrocodone (Thayer 325- 5 mg oral tablet) 1 tab(s) by mouth Every 6 hours as needed for as needed for pain Epigastric pain Duration: 3 Days Printed Prescription New famotidine (Pepcid 20 mg oral tablet) 1 tab(s) by mouth Two (2) times a day Printed Prescription New ondansetron (ondansetron 4 mg oral tablet, disintegrating) 1 tab(s) by mouth Every 6 hours as needed for Nausea/Vomiting Duration: 4 Days Printed Prescription Please take this list to your next doctor s visit. Bring all medications you take, including over the counter medications, herbals and other supplements with you to your doctor s visit. Patients and families are reminded to discard old lists and to update any records with all medication providers or retail pharmacies. Education Materials Gastritis or Ulcer, No Antibiotic Treatment Gastritis is irritation and inflammation of the stomach lining. This means the lining is red and swollen. It can cause shallow sores in the stomach lining called erosions. An ulcer is a deeper open sore in the lining of the stomach. It may also occur in the first part of the small intestine (duodenum). The causes and symptoms of gastritis and ulcers are very similar. Causes and risk factors for both problems can include: Long-term use of nonsteroidal anti-inflammatory drugs (NSAIDs), such as aspirin and ibuprofen H. pylori bacteria infection Tobacco use Alcohol use Certain other conditions such as immune disorders, certain medicines (high-dose iron supplements) and street drugs (such as cocaine) Symptoms for both problems can include: Dull or burning pain in the upper part of the belly Loss of appetite Heartburn or upset stomach Frequent burping Bloated feeling Nausea with or without vomiting You likely had an evaluation to help find the exact cause and extent of your problem. This may have included a health history, exam, and certain tests. Results showed that your problem is not due to H. pylori infection. For this reason, you don't need antibiotics as part of your treatment. Whether your problem is gastritis or an ulcer, you will still need to take other medicines, however. You will also need to follow instructions to help reduce stomach irritation so your stomach can heal. Home care Take any medicines you re prescribed exactly as directed. Common medicines used to treat gastritis include: oAntacids. These help neutralize the normal acids in your stomach. oProton pump inhibitors. These block your stomach from making any acid. oH2 blockers. These reduce the amount of acid your stomach makes. oBismuth subsalicylate. This helps protect the lining of your stomach from acid. Don't take any NSAIDs during your treatment. If you take NSAID to help treat other health problems, tell your healthcare provider. He or she may need to adjust your medicine plan or change the dosage. Don t use tobacco. Also don t drink alcohol. These products can increase the amount of acid your stomach makes. This can delay healing. It can also worsen symptoms. Follow-up care Follow up with your healthcare provider, or as advised. In some cases, more testing may be needed. When to seek medical advice Call your healthcare provider right away if any of these occur: Fever of 100.4 F (38 C) or higher, or as directed by your healthcare provider Stomach pain that worsens or moves to the lower right part of belly Extreme fatigue Weakness or dizziness Continued weight loss Frequent vomiting, blood in your vomit, or coffee ground-like substance in your vomit Black, tarry, or bloody stools Call 911 Call 911 if any of these occur: Chest pain appears or worsens, or spreads to the back, neck, shoulder, or arm Unusually fast heart rate Trouble breathing or swallowing Confusion Extreme drowsiness or trouble waking up Fainting Large amounts of blood present in vomit or stool [phone] [employer]. [address] [place] [address]. All rights reserved. This information is not intended as a substitute for professional medical care. Always follow your healthcare professional's instructions. Constipation (Adult) Constipation means that you have bowel movements that are less frequent than usual. Stools often become very hard and difficult to pass. Constipation is very common. At some point in life, it affects almost everyone. Since everyone's bowel habits are different, what is constipation to one person may not be to another. Your healthcare provider may do tests to diagnose constipation. It depends on what he or she finds when evaluating you. Symptoms of constipation include: Abdominal pain Bloating Vomiting Painful bowel movements Itching, swelling, bleeding, or pain around the anus Causes Constipation can have many causes. These include: Diet low in fiber Too much dairy Not drinking enough liquids Lack of exercise or physical activity (especially true for older adults) Changes in lifestyle or daily routine, including , aging, work, and travel Frequent use or misuse of laxatives Ignoring the urge to have a bowel movement or delaying it until later Medicines, such as certain prescription pain medicines, iron supplements, antacids, certain antidepressants, and calcium supplements Diseases like irritable bowel syndrome, bowel obstructions, stroke, diabetes, thyroid disease, Parkinson disease, hemorrhoids, and colon cancer Complications Potential complications of constipation can include: Hemorrhoids Rectal bleeding from hemorrhoids or anal fissures (skin tears) Hernias Dependency on laxatives Chronic constipation Fecal impaction, a severe form of constipation in which a large amount of hard stool is in your rectum that you can't pass Bowel obstruction or perforation Home care All treatment should be done after talking with your healthcare provider. This is especially true if you have another medical problems, are taking prescription medicines, or are an older adult. Treatment most often involves lifestyle changes. You may also need medicines. Your healthcare provider will tell you which will work best for you. Follow the advice below to help avoid this problem in the future. Lifestyle changes These lifestyle changes can help prevent constipation: Diet. Eat a high-fiber diet, with fresh fruit and vegetables, and reduce dairy intake, meats, and processed foods Fluids. It's important to get enough fluids each day. Drink plenty of water when you eat more fiber. If you are on diet that limits the amount of fluid you can have, talk about this with your healthcare provider. Regular exercise. Check with your healthcare provider first. Medicines Take any medicines as directed. Some laxatives are safe to use only every now and then. Others can be taken on a regular basis. While laxatives don't cause bowel dependence, they are treating the symptoms. So your constipation may return if you don't make other changes. Talk with your healthcare provider or pharmacist if you have questions. Prescription pain medicines can cause constipation. If you are taking this kind of medicine, ask your healthcare provider if you should also take a stool softener. Medicines you may take to treat constipation include: Fiber supplements Stool softeners Laxatives Enemas Rectal suppositories Follow-up care Follow up with your healthcare provider if symptoms don't get better in the next few days. You may need to have more tests or see a specialist. Call 911 Call 911 if any of these occur: Trouble breathing Stiff, rigid abdomen that is severely painful to touch Confusion Fainting or loss of consciousness Rapid heart rate Chest pain When to seek medical advice Call your healthcare provider right away if any of these occur: Fever of 100.4 F (38 C) or higher, or as directed by your healthcare provider Failure to resume normal bowel movements Pain in your abdomen or back gets worse Nausea or vomiting Swelling in your abdomen Blood in the stool Black, tarry stool Involuntary weight loss Weakness [phone] [employer] [place] [address]. All rights reserved. This information is not intended as a substitute for professional medical care. Always follow your healthcare professional's instructions. Additional Information VACCINATE! IT SAVES LIVES! Members of the community who have not yet received the COVID-19 vaccine and would like to receive it can visit one of [facility] vaccine clinics. There are many vaccine clinic locations within the [facility]. For locations and available times, please visit www.gettheshot.coronavirus.[place].gov/. It is important to note that some COVID mobile vaccine clinics are held outdoors and may be canceled in rainy or stormy conditions. To learn more about pediatric vaccinations (ages 5-11), we invite you to visit the [facility] webpage. https://www.[facility].org/pages/83-Mvuwt-Xamswpbomdj-Opvndqbsnv-Rhaqe-O uestions.html To learn more about the COVID-19 vaccine, we invite you to visit the CDC website for a list of frequently asked questions. https://www.cdc.gov/coronavirus/2019-nc ov/vaccines/faq.html [facility] Patient Portal Access Instructions: Stay connected with your healthcare team and access your personal medical information anytime with the [facility] Patient Portal. If you would like a full copy of your medical records please contact the [facility] Medical Records Department Tuesday through Tuesday between 8a.m. and 4:30p.m. Please follow the directions below to access the portal: 1.Access the email account you provided upon registration to the [facility].2.Look for an invitation email from [facility].3.Open the email and access the invitation link: Accept Invitation to [employer]4.Fill in the required lugo to create your account. Sign into [email or web address] with your username and password that you [...] you will allow to register on the [facility] Patient Portal for access to your information. You can also access the [facility] Patient Portal on the [employer] daija. Simply click on Health Records under Health Data and then click on the [employer] logo. HOW TO SAFELY DISPOSE OF PRESCRIPTION MEDICATIONS Please use one of the following methods to safely dispose of your unused medications. 1.Use a drug disposal kit: the drug disposal pouch allows you to safely discard your old and unused drugs. Ask your nurse to give you one when you are discharged.2.Visit a local take-back location: Many local pharmacies and police departments have programs that collect old and unwanted prescription drugs. Call your local pharmacy or go to http://Pansieve.[employer]/5U6Zl4a to find one close to you.3.Make use of household items: Use cat litter or old coffee grounds to dispose medications if other options are not available. Mix your drugs with these household products, seal them in an airtight container and throw it into the garbage. Call [facility]: [phone] to be sure your drugs can be [...] drowsiness, such as benzodiazepines, also known as benzos, including diazepam and alprazolam, muscle relaxants or sleep aids. Never sell or share prescription opioids. This is illegal. Store opioids in a secure place and out of reach of others (including children, family, friends and visitors). The last page(s) of this document has been signed and retained as a CHART COPY Signatures Patient Education Materials Gastritis or Ulcer (No Antibiotic Treatment) Constipation (Adult) Medication Leaflets My discharge plan and instructions have been reviewed and explained to me and I,CYNDEE HAWKINS understand my current condition and have read and understand these discharge instructions. I have received a written copy of the plan/instructions. If I have questions, I am aware that I should contact my doctor. 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 Multiplanar reformatted images are provided for review. Automated exposure control, iterative reconstruction, and/or weight based adjustment of the mA/kV was utilized to reduce the radiation dose to as low as reasonably achievable. COMPARISON: None. HISTORY: ORDERING SYSTEM PROVIDED HISTORY: Reason for Exam: epigastric pain/pt unable to raise right arm Abdominal pain, acute, nonlocalized ; Epigastric pain FINDINGS: Lower Chest: No acute abnormality is present at the lung bases. Organs: The liver, biliary tree, pancreas, spleen, adrenal glands, and kidneys show no sign of abnormality. GI/Bowel: There is no intestinal obstruction or inflammation. Moderate fecal retention in the rectosigmoid colon is present without obstruction or fecal impaction. There is no free intraperitoneal air or abnormal fluid collection in the abdomen. Pelvis: Bilateral hip replacements obscure detail in the pelvis. Urinary bladder is nearly empty. No abnormal fluid collection is detected in the pelvis. Peritoneum/Retroperitoneum: Abdominal aorta is nonaneurysmal. There is no retroperitoneal lymph node enlargement. Bones/Soft Tissues: Bilateral hip replacements are unremarkable. There is no acute skeletal abnormality. Small umbilical hernia contains only fat with no sign of complication. IMPRESSION: 1. No acute intra-abdominal or intrapelvic abnormality. 2. Moderate fecal retention in the rectosigmoid colon. 3. Small umbilical hernia contains only fat with no sign of complication. Interpreted by: Miko Sequeira MD Preliminary Report By: Miko Sequeira MD Electronically signed By Miko Sequiera MD Dictated Date: 12/03/2024 3:22:37 AM Prelim Date: 12/03/2024 3:27:01 AM Sign Date: 12/03/2024 3:27:01 AM Ordering Provider: AUDRA DIAZ Interpreted by: Miko Sequeira MD Preliminary Report By: Miko Sequeira MD Electronically signed By Miko Sequeira MD Dictated Date: 12/03/2024 3:22:37 AM Prelim Date: 12/03/2024 3:27:01 AM Sign Date: 12/03/2024 3:27:01 AM Ordering Provider: AUDRA DIAZ [facility]06-30-2025 Note* Exam Date Time Procedure Performing Provider Status 12/03/24 3:13 AM XR Chest 1 View MIKO SEUQEIRA MD; Auth (Verified) [id number] ORIGINAL EXAMINATION: ONE XRAY VIEW OF THE CHEST 12/03/2024 3:14 am COMPARISON: Chest x-ray on 04/09/2019. HISTORY: ORDERING SYSTEM PROVIDED HISTORY: Reason for Exam: chest pain FINDINGS: The heart size and mediastinal contours are normal. There is no lung infiltrate or edema. No pneumothorax or pleural fluid is present. Degenerative changes are present in the shoulders and thoracic spine. There is no acute skeletal abnormality. IMPRESSION: No acute cardiopulmonary process. Interpreted by: Miko Sequeira MD Preliminary Report By: Miko Sequeira MD Electronically signed By Miko Sequeira MD Dictated Date: 12/03/2024 3:19:06 AM Prelim Date: 12/03/2024 3:20:52 AM Sign Date: 12/03/2024 3:20:52 AM Ordering Provider: AUDRA DIAZ Interpreted by: Miko Sequeira MD Preliminary Report By: Miko Sequeira MD Electronically signed By Miko Sequeira MD Dictated Date: 12/03/2024 3:19:06 AM Prelim Date: 12/03/2024 3:20:52 AM Sign Date: 12/03/2024 3:20:52 AM Ordering Provider: AUDRA DIAZ [facility]06-30-2025 Note* Exam Date Time Procedure Performing Provider Status 12/03/24 1:56 AM EKG [ED AOH] - CV AUDRA DIAZ DO ; Auth (Verified) ECG Final Report Sinus tachycardia Ventricular trigeminy Right bundle branch block Repol abnrm suggests ischemia, diffuse leads BORDERLINE ECG Electronic Signature: AUDRA DIAZ DO 12/03/2024 02:07:53 [facility]06-27-2025 [facility] Medical Records Department [address] [place] [address] History Physical Exam 11/30/24 1505 MR#: [id number] Acct: [id number] Name: CYNDEE HAWKINS Rep #: [id number] : 1960 64 From: Car Friend DO PCP: Dr. Anna Vega DO Status:[facility] Location: EN HPI - General General Date of Admission: 11/30/24 Date of Service: 11/30/24 Chief Complaint: dysphagia secondary to suspected esophageal cancer HPI Narrative CYNDEE HAWKINS, is a 64 M who presents for repeat upper endoscopy after undergoing an upper endoscopy this morning discovered to have a severe esophageal stricture that cannot be transversed likely secondary to esophageal cancer. He comes back in today for gross specimen biopsy and analysis by pathology at the bedside along with esophageal stenting. [facility] Medical History Autism Cancer History of Mohs [...] Time No Known Allergies Allergy Verified 11/30/24 14:11 Family History Other Arthritis Bowel disease Colon [...] Position Sitting Blood Pressure Location Left Arm Baseline BP Pulse Ox 100 100 Oxygen Delivery Method Room Air Room Air 11/30/24 07:22 11/30/24 07:24 11/30/24 07:25 Temperature 96.3 F L 96.3 F L 96.7 F L Temperature Source Temporal Temporal Pulse Rate 86 87 86 Respiratory Rate 14 20 H 16 Respiratory Pattern Normal Blood Pressure 98/60 98/60 104/73 Blood Pressure Mean 72 83 Blood Pressure Source Monitor Monitor Blood Pressure Position Semi-Fowlers Semi-Fowlers Blood Pressure Location Right Arm Right Arm Baseline BP 147/96 147/96 Pulse Ox 88 93 94 Oxygen Delivery Method Room Air Room Air 11/30/24 07:30 11/30/24 07:35 11/30/24 07:50 Temperature 97.1 F L Temperature Source Temporal Pulse Rate 90 85 Respiratory (more content not included)...[facility]06-27-2025 [facility] Medical Records Department [address] [place] [address] History Physical Exam 11/30/24 0651 MR#: [id number] Acct: [id number] Name: CYNDEE HAWKINS Rep #: [id number] : 1960 64 From: Car Friend DO PCP: Dr. Anna Vega, DO [place] [address] HPI - General General Date of Admission: [...] taking herbal pills AF BetaFood 0800 TID for GB - prescribed by chiropractor x1 week PFSH Medical History Autism Cancer History of Mohs [...] to inspection, nondistended, n (more content not included)...[facility]06-19-2025 Note* Exam Date Time Procedure Performing Provider Status 11/22/24 8:54 AM XR Esophogram w/Barium Tablet ANNA OCAMPO MD; Auth (Verified) [id number] ORIGINAL EXAMINATION: Double CONTRAST ESOPHAGRAM 11/22/2024 HISTORY: [...] obtained. 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 Barium tablet does not pass through [...] recommended to further evaluate. Interpreted by: Anna Ocampo MD Preliminary Report By: Anna Ocampo MD Electronically signed By Anna Ocampo MD Dictated Date: 11/22/2024 9:32:33 AM Prelim Date: 11/22/2024 9:42:24 AM Sign Date: 11/22/2024 9:42:24 AM Ordering Provider: ANNA VEGA [facility]06-17-2025 Note* Exam Date Time Procedure Performing Provider Status 11/20/24 12:52 PM XR Swallowing Function M odified [id number] ORIGINAL Images acquired, not reported on this accession number. [id number] Discharge instructions Patient Education 08/19/2023 17:28:38 [...] alternate ice and heat. You may use dwba-qxq-fwtyvnb pain medicine to control pain, unless another [...] numb, or tingly Pain or swelling increases 4123-1458 [employer]. [address] [place] [address]. All rights reserved. This information is not intended as a substitute for professional medical care. Always follow yourhealthcare professional's instructions. Follow Up Care 08/19/2023 16:54:28 With:ANNA VEGA DO Address: [address] [facility] [place] [phone] When:2-4 days [facility] 03-15-2024 Note Discharge Instructions Thank you for allowing [facility] to assist you with your healthcare needs. [...] VEGA DO When Within 2-4 days Where: [address] [facility] [place] [address]- [phone] Allergies NKA Medications Please ask your primary [...] alternate ice and heat. You may use sugs-kxa-ixarwkd pain medicine to control pain, unless another [...] numb, or tingly Pain or swelling increases 4254-2143 [employer]. [address] [place] [address], [place] [address]. All rights reserved. This information is not intended as a substitute for professional medical care. Always follow yourhealthcare professional's instructions. Additional Information VACCINATE! IT SAVES LIVES! Members of the community who have not yet received the COVID-19 vaccine and would like to receive it can visit one of [facility] vaccine clinics. There are many vaccine clinic locations within the State. For locations and available times, please visit www.gettheshot.coronavirus.[place].gov/. It is important to note that some COVID mobile vaccine clinics are held outdoors and may be canceled in rainy or stormy conditions. To learn more about pediatric vaccinations (ages 5-11), we invite you to visit the [facility] webpage. https://www.[employer].org/pages/3963-Xwpbq-Vlejtridbko-Aoyrouecii-Slpbp-Vwk stions.htmlTo learn more about the COVID-19 vaccine, we invite you to visit the CDC website for a list of frequently asked questions. https://www.cdc.gov/coronavirus/2019-ncov/vaccines/faq.html [facility] Patient Portal Access Instructions: Stay connected with your healthcare team and access your personal medical information anytime with the [employer] Patient Portal. If you would like a full copy of your medical records please contact the [facility] Medical Records Department Tuesday through Tuesday between 8a.m. and 4:30p.m. Please follow the directions below to access the portal: 1.Access the email account you provided upon registration to the hospital.2.Look for an invitation email from [facility].3.Open the email and access the invitation link: Accept Invitation to [employer]4.Fill in the required lugo to create your account. Sign into [email or web address] with your username and password that you [...] you will allow to register on the [employer] Patient Portal for access to your information. You can also access the [employer] Patient Portal on the [employer] daija. Simply click on Health Records under [employer]Pack and then click on the [employer] logo. HOW TO SAFELY DISPOSE OF PRESCRIPTION [...] Call your local pharmacy or go to http://Pansieve.[employer]/9I2Va1m to find one close to you.3.Make use of household items: Use cat litter or old coffee grounds to dispose medications if other options arenot available. Mix your drugs with these household products, seal them in an airtight container andthrow it into the garbage. Call [facility]: [phone] to be sure your drugs can be [...] aware that I should contact my doctor. 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 [address] [place] [address]. All rights reserved. This information is not intended as a substitute for professional medical care. Always follow yourhealthcare professional's instructions. Follow Up Care 06/28/2023 15:35:14 With:ANNA VEGA DO Address: [address] [place] [address] [place] [address] [phone] When:2-4 days Comments:Return to ED if symptoms worsen With:Keep your appointment as scheduled with orthopedic spine. Address:Unknown When:2-4 days [facility] 01-23-2024 Emergency department Discharge summary Discharge Instructions [...] to ED if symptoms worsen Where: [address] [facility] [place] [phone] Follow Up with Keep your appointment as [...] arm gets worse Trouble breathing or swallowing [phone] [employer]. [address] [place] [address], [place] [address]. All rights reserved. This information is not intended as a substitute for professional medical care. Always follow yourhealthcare professional's instructions. Additional Information VACCINATE! IT SAVES LIVES! Members of the community who have not yet received the COVID-19 vaccine and would like to receive it can visit one of [facility] vaccine clinics. There are many vaccine clinic locations within the [facility]. For locations and available times, please visit www.gettheshot.coronavirus.[place].gov/. It is important to note that some COVID mobile vaccine clinics are held outdoors and may be canceled in rainy or stormy conditions. To learn more about pediatric vaccinations (ages 5-11), we invite you to visit the [facility] webpage. https://www.[employer].org/pages/2510-Rnyrh-Jlkrxtblvgq-Tcrcdangyp-Fpbiy-Vhk stions.htmlTo learn more about the COVID-19 vaccine, we invite you to visit the CDC website for a list of frequently asked questions. https://www.cdc.gov/coronavirus/2019-ncov/vaccines/faq.html [facility] Patient Portal Access Instructions: Stay connected with your healthcare team and access your personal medical information anytime with the [employer] Patient Portal. If you would like a full copy of your medical records please contact the [facility] Medical Records Department Tuesday through Tuesday between 8a.m. and 4:30p.m. Please follow the directions below to access the portal: 1.Access the email account you provided upon registration to the hospital.2.Look for an invitation email from [facility].3.Open the email and access the invitation link: Accept Invitation to [employer]4.Fill in the required lugo to create your account. Sign into [email or web address] with your username and password that you [...] you will allow to register on the [employer] Patient Portal for access to your information. You can also access the [employer] Patient Portal on the [employer]. Simply click on Health Records under [employer] and then click on the [employer] logo. [...] Call your local pharmacy or go to [email or web address] to find one close to you.3.Make use of household items: Use cat litter or old coffee grounds to dispose medications if other options arenot available. Mix your drugs with these household products, seal them in an airtight container andthrow it into the garbage. Call [facility]: [phone] to be sure your drugs can be [...] been reviewed and explained to me and ROSS Werner DAVID R understand my current condition and have read and understand these discharge instructions. I have received a written copy of the plan/instructions. If I have questions, I am aware that I should contact my doctor. 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 RECORD# NUMBER DATE DATE TYPE SREEDHAR HAWKINS [id number] M 62 02/28/23 2 R [id number] ROOM: [facility] DATE OF : 1960 ATTENDING PHYSICIAN: Petar [...] well Page 1 of 2 SREEDHAR HAWKINS R Discharge Summary SREEDHAR HAWKINS : 1960 [...] is interested in being discharged to a half-way facility. I explained that our goal is for him to succeed in physical therapy and be discharged home. He understands that if he does well in physical therapy that his insurance company likely will not cover a stay with a half-way facility. He understands the risks associated with being discharged to a half-way facility. He will further review these options [...] Petar Kumar PA-C 03/01/23 07:39 JOB #: [id number] Transcribed By: [email or web address] 03/01/23 08:31 Electronically signed by: E-sign Petar CROW 04/25/23 10:17 Page 2 of 2 [facility]ments [...] XR Shoulder Minimum 2 Views Right 04/13/21 [facility] Evaluation + Plan note Future Appointments Appointment Date:05/07/2022 08:30:00 AM Scheduled Provider:ANNA VEGA DO Location:[facility] Appointment Type:PC OV Appointment Date:07/30/2022 10:00:00 AM Scheduled Provider:ANNA VEGA DO [facility] Appointment Type:PC OV Future Scheduled Tests Laboratory* Rubella Antibody 01/29/22 * A1C Hemoglobin 05/27/21 * Complete Blood Count 05/27/21 * Hepatitis C Antibody IgG 07/13/21 * Mumps Antibody 01/29/22 * Rubeola IgG Antibody 01/29/22 * Complete Metabolic Panel 05/27/21 [facility] Evaluation + Plan note Future Appointments Appointment Date:07/30/2022 04:15:00 PM Scheduled Provider:ANNA VEGA DO [facility] Appointment Type:PC OV Future Scheduled Tests Laboratory* Prostate Specific Antigen 05/07/22 * A1C Hemoglobin 05/27/21 * A1C Hemoglobin 05/07/22 * Complete Blood Count 05/27/21 * Complete Blood Count 05/07/22 * Lipid Profile 05/07/22 * Complete Metabolic Panel 05/27/21 * Complete Metabolic Panel 05/07/22 [facility] Evaluation + Plan note Future Appointments Appointment Date:08/05/2022 04:30:00 PM Scheduled Provider:ANNA VEGA DO Location[facility] Appointment Type:PC OV [facility] Evaluation + Plan note Future Appointments Appointment Date:01/06/2023 04:30:00 PM Scheduled Provider:ANNA VEGA DO Location:[facility] Appointment Type:PC OV Diagnostic Tests Pending * Lyme AB Early Disease 10/08/22 * Lyme Disease PCR 10/08/22 [facility] Evaluation + Plan note Future Appointments Appointment Date:05/04/2023 04:30:00 PM Scheduled Provider:ANNA VEGA DO Location[facility] Appointment Type:PC OV [facility] Evaluation + Plan note Future Appointments Appointment Date:07/18/2023 05:00:00 PM Scheduled Provider:ANNA VEGA DO Location[facility] Appointment Type:PC OV [facility] Evaluation + Plan note Future Appointments Appointment Date:07/08/2023 11:30:00 AM Scheduled Provider: Location:[facility] Appointment Type:PT Treatment - [place] Appointment Date:07/12/2023 01:30:00 PM Scheduled Provider: Location:[facility] Appointment Type:PT Treatment [facility] Appointment Date:07/13/2023 01:00:00 PM Scheduled Provider:ANNA VEGA DO [facility] Appointment Type:PC OV Appointment Date:07/14/2023 11:00:00 AM Scheduled Provider: Location:[facility] Appointment Type:PT [facility] Appointment Date:07/18/2023 05:00:00 PM Scheduled Provider:ANNA VEGA DO [facility] Appointment Type:PC OV Appointment Date:07/19/2023 11:00:00 AM Scheduled Provider: Location:[facility] Appointment Type:PT Treatment - [place] Appointment Date:07/22/2023 02:30:00 PM Scheduled Provider: Location:[facility] Appointment Type:PT [facility] Future Scheduled Tests Radiology* MRI Spine Cervical w/o Contrast 07/08/23 [facility] Evaluation + Plan note Future Appointments Appointment Date:08/17/2023 11:30:00 AM Scheduled Provider:ANNA VEGA DO Location[facility] Appointment Type:PC OV Future Scheduled Tests Radiology* MRI Spine Cervical w/o Contrast 07/08/23 [facility] Evaluation + Plan note Future Appointments Appointment Date:09/23/2023 10:00:00 AM Scheduled Provider:ANNA VEGA DO Location:[facility] Appointment Type:PC OV Appointment Date:11/16/2023 10:30:00 AM Scheduled Provider:ANNA VEGA DO Location:[facility] Appointment Type:PC OV Future Scheduled Tests Radiology* MRI Spine Cervical w/o Contrast 07/08/23 [facility] Evaluation + Plan note Future Appointments Appointment Date:11/25/2023 09:00:00 AM Scheduled Provider: Location:[facility] Appointment Type:PT Outpatient Evaluation Appointment Date:12/29/2023 01:30:00 PM Scheduled Provider:ANNA VEGA DO Location:[facility] Appointment Type:PC OV Future Scheduled Tests Radiology* MRI Spine Cervical w/o Contrast 07/08/23 [facility] Evaluation + Plan note Future Appointments Appointment Date:12/29/2023 01:30:00 PM Scheduled Provider:ANNA VEGA DO Location:[facility] Appointment Type:PC OV Future Scheduled Tests Radiology* MRI Spine Cervical w/o Contrast 07/08/23 [facility] Evaluation + Plan note Future Appointments Appointment Date:03/02/2024 01:30:00 PM Scheduled Provider:ANNA VEGA DO Location:[facility] Appointment Type:PC Wellness Annual Future Scheduled Tests Radiology* MRI Spine Cervical w/o Contrast 07/08/23 [facility] evaluation + Plan note Future Appointments Appointment Date:05/25/2024 10:30:00 AM Scheduled Provider:ANNA VEGA DO Location:[facility] Appointment Type:PC OV Future Scheduled Tests Radiology* MRI Spine Cervical w/o Contrast 07/08/23 [facility] Evaluation + Plan note Future Appointments Appointment Date:11/22/2024 08:45:00 AM Scheduled Provider: Location:[facility] Appointment Type:XR Esophogram W/Barium Tablet Appointment Date:01/02/2025 10:00:00 AM Scheduled Provider:ANNA VEGA DO Location:[facility] Appointment Type:PC OV Future Scheduled Tests Radiology* XR Esophogram W/Barium Tablet 11/22/24 [facility] Evaluation + Plan note Future Appointments Appointment Date:01/02/2025 10:00:00 AM Scheduled Provider:ANNA VEGA DO Location[facility] Appointment Type:PC OV [facility] Evaluation + Plan note Future Appointments Appointment Date:01/02/2025 10:00:00 AM Scheduled Provider:ANNA VEGA DO Location[facility] Appointment Type:PC OV Future Scheduled Tests Radiology* PET/CT Initial Staging 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 12/03/24 [facility] Evaluation noteNo assessment information available [facility] Work Phone: evaluation note* Diagnosis Esophageal dysphagia- Primary Dysphagia, pharyngoesophageal phase [facility] Narrative No data available for this section [facility] Hospital Discharge instructions No data available for this section [facility] Progress note No data available for this section [facility] Summary Purpose Family History No Family History Records Found Relationship Condition Age at Onset Recorded Date/T malcolm Unknown Family History?No pe rtinent history Unknown January 21, 2014 10:31pm Family History?No pe rtinent history Unknown January 21, 2014 10:31pm Advance Directives No Advanced Directives Records Found Advance Directive Response Recorded Date/ Time Advance Directives No January 23, 2014 1:59pm Living Will No [place] [address] 1:59pm Power of Horizontal Resaw Operator No January 23 014 1:59pm Chief Complaint and Reason for Visit Chief Complaint SP Additional Source Comments (unrecognized sect ion and content) No Status Records FoundNo Status Records FoundNo Status Records FoundNo Status Records FoundNo Status Records FoundNo Status Records FoundNo Status Records Found INFORMATION SOURCE (unrecogn ized section and content) DATE CREATED AUTHOR 11/30/2017 [facility] DATE CREATED AUTHOR AUTHOR'S ORGANIZ ATION 04/26/2023 [facility] DATE CREATED AUTHOR AUTHOR'S ORGANIZ ATION 12/30/2023 [facility] ([place] DATE CREATED AUTHOR AUTHOR'S ORGANIZ ATION 12/09/2024 [facility] DATE CREATED AUTHOR AUTHOR'S ORGANIZ ATION 12/20/2024 [facility] DATE CREATED AUTHOR AUTHOR'S ORGANIZ ATION 12/22/2024 [facility] DATE CREATED AUTHOR AUTHOR'S ORGANIZ ATION 01/08/2025 [facility] Goals (unrecognized section and content) Goals may be documented in a n alternate section Care Team (unrecognized sect ion and content) Care Team Personnel Name: ANNA VEGA DO Position: P4 Physician - Primary Care Member Role: Primary Care Physician Address: Address: [address] [place] [address]- Care Team Related Persons Name: NASIR HAWKINS Address: Home [address] [place] [phone] [place] Care Team Personnel Name: ANNA VEGA DO Position: P4 Physician - Primary Care Member Role: Primary Care Physician Address: Address: [address] [place] [address]- Care Team Related Persons Name: NASIR HAWKINS Address: Home [address] [place] [phone] [place] Care Team Personnel Name: ANNA VEGA DO Position: P4 Physician - Primary Care Member Role: Primary Care Physician Address: Address: [address] [place] [address]- Care Team Related Persons Name: NASIR HAWKINS Address: Home [address] [place] [phone] [place] Patient Care team informatio n (unrecognized section and content) Milieu Manager Relationship Specialty Start Date End Date Anna Vega DO [address] [place] [address] PCP - General Family Medicine 12/11/24 Reason for Visit (unrecogniz ed section and content) Reason Comments New Patient FOR RECORDS PERTAINING TO PATIENTS WHO ARE [...] BE BASED ON THE PRIMARY CLINICAL RECORDS. [employer] [facility]. provides no warranty or guarantee of the accuracy or completeness of information in this document.
[2025-01-10] MEDS: Lactated Ringers 1,000 ML 15 ML IV (06:30)
--- NOTE | 2025-01-10 07:00 | PRE.ANES_ITS ---
ASA Classification* ASA Classification ASA Classification: 2 Assessment & Plan Anesthesia* Anesthesia Assessment Anesthesia Assessment: Discussed sedation and/or anesthesia options, risks, benefits, and alternatives with patient/parents/legal guardian/POA. Questions invited. The patient/parents/legal guardian/POA seems to understand and agrees to proceed with anesthesia plan. Reviewed the physical assessment, medical history, allergy history and patient home medications list prior to surgery/procedure/anesthetic and documented any changes. Performed airway and anesthesia risk assessments. Anesthesia Type Anesthesia Type: MAC Anesthesia Focused Assessment* Temperature: 97.9 F Pulse Rate: 89 Blood Pressure: 112/87 Respiratory Rate: 16 Pulse Ox: 97 Airway Assessment Mouth opens: >3 cm Mallampati Score: II Labs Anesthesia Preop lab: CBC WBC 10.3 K/mm3 (4.4-11.0) 12/01/24 09:08 12/01/24 RBC 4.75 M/mm3 (4.6-6.2) 12/01/24 09:08 12/01/24 Hgb 15.3 g/dL (13.0-16.5) 12/01/24 09:08 12/01/24 Hct 44.7 % (40-54) 12/01/24 09:08 12/01/24 Plt Count 209 K/mm3 (150-450) 12/01/24 09:08 12/01/24 CHEMISTRY Potassium 4.0 mmol/L (3.3-5.1) 01/07/25 14:14 01/07/25 Sodium 138 mmol/L (133-145) 01/07/25 14:14 01/07/25 Magnesium 2.1 mg/dL (1.6-2.6) 09/13/23 11:50 09/13/23 BUN 12 mg/dL (4-19) 01/07/25 14:14 01/07/25 Creatinine 0.79 mg/dL (0.70-1.20) 01/07/25 14:14 01/07/25 Glucose 97 mg/dL (70-99) 01/07/25 14:14 01/07/25 POC Glucose 112 mg/dL (74-106) H 09/26/23 06:03 09/26/23 COAG PT 14.5 SECONDS (11.7-14.9) 12/01/24 08:10 Pre-Assessment Diagnosis/Proposed Procedure Planned Operative Procedure(s): (R) Insertion, Vascular Port right poss left Anesthesia History Anesthesia History - clinical laboratory technologist: Anesthesia History - clinical laboratory technologist Hx Hospitalization No 01/04/25 08:11 Any Problems With Anesthesia Yes: IRRITABILITY AND 01/04/25 08:11 AGITATION Cholinesterase deficiency No 01/04/25 08:11 You/Your Family Experience No 01/04/25 08:11 fever (hyperthermia) with Relationship Recent Exposure to Contagious No 01/10/25 06:21 Disease Does patient have nerve No 01/04/25 08:11 stimulator Patient instructed to have device shut off --Does patient have Pacemaker No 01/10/25 06:21 or ICD? When Was Last Pacemaker Check QUESTION #4 FULL TEXT: You/Your Family Experience fever (hyperthermia) with Anesthesia Last Oral Intake Last Oral intake: Last Oral Intake NPO since 16:00 01/10/25 06:21 Meds taken in AM with sips of water? Meds patient instructed to take am of surgery PONV PONV - clinical laboratory technologist: PONV - clinical laboratory technologist Female No 01/04/25 08:11 HX of Motion Sickness No 01/04/25 08:11 HX of N/V After Surgery No 01/04/25 08:11 Non-Smoker Yes 01/04/25 08:11 Duration of Surgery greater No 01/04/25 08:11 than 60 minutes Number of Risk Factors 1 01/04/25 08:11 PONV Score Low Risk 01/04/25 08:11 Height & Weight Height & Weight: Anesthesia: Height & Weight Height 5 ft 11 in 01/10/25 06:21 Weight: 88.904 kg 01/10/25 06:21 Body Mass Index (BMI) 27.3 01/10/25 06:21 Respiratory Assessment Respiratory Assessment - clinical laboratory technologist: Respiratory Tract Infection Hx - clinical laboratory technologist Hx Respiratory Tract Infection No 01/04/25 08:11 STOP Sleep Apnea STOP Sleep Apnea - clinical laboratory technologist: STOP Sleep Apnea - clinical laboratory technologist Hx Hypertension No 01/04/25 08:11 Hx Sleep Apnea No 01/04/25 08:11 CPAP No 01/04/25 08:11 BIPAP No 01/04/25 08:11 Do you snore loudly (louder No 01/04/25 08:11 than talking or can be heard Do you often feel tired/ No 01/04/25 08:11 fatigued/ sleepy during daytime? Has anyone observed you stop No 01/04/25 08:11 breathing during sleep? STOP Results Negative 01/04/25 08:11 QUESTION #5 FULL TEXT : Do you snore loudly (louder than talking or can be heard through closed doors)? 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 Specify any problems Hx of Preganancy in last 3 N/A 01/04/25 08:11 Months Nurse Filling Out Transfusion VLEHMAN 01/04/25 08:11 & Questions: Date: 01/04/25 01/04/25 08:11 Time: 08:14 01/04/25 08:11 Patient unable to answer at this time (ie. confused, unrespo /Reproduction History /Reproductive History - clinical laboratory technologist: /Reproductive Hx- clinical laboratory technologist Hx Now Gestational Age (in weeks): EDC: Hx Hx Para Hx Section SAB No 12/19/24 14:17 Active Medications Active Medications: Current Medications Generic Name Dose Route Start Last Admin Trade Name Freq PRN Reason Stop Dose Admin Cefazolin Sodium 2 gm/ Sodium 110 mls @ 200 mls/hr 01/10/25 14:45 Chloride IV 01/10/25 15:17 INTRAOP ONE Lactated Ringer's 1,000 mls @ 15 mls/hr 01/10/25 06:15 01/10/25 06:30 IV 15 mls/hr .Q48H NANNETTE Administration PFSH Medical History Encounter for education Tricuspid valve regurgitation Mitral valve regurgitation Autism Cancer History of Mohs micrographic surgery for skin cancer (11/26/24) Chronic constipation Wears hearing aid Wears glasses Anxiety Prostate disease Back pain OCD (obsessive compulsive disorder) Non-smoker History of stress test Intellectual disability Obsessive compulsive disorder Hearing problem History of emotional problems Arthritis Home Medications ?Medication ?Instructions ?Recorded ?Last Taken ?Type sertraline 100 mg tablet 200 mg PO DAILY 11/29/24 08:00 History amitriptyline 25 mg tablet 25 mg PO DAILY 12/05/24 08:00 History famotidine 20 mg tablet 20 mg PO DAILY PRN gastric r eflux 12/05/24 Unknown History hydrocodone-acetaminophen 5-325mg 1 tab PO Q6H PRN PRN pain 12/05/24 Unknown History 5mg-325mg lidocaine HCl 2 % mucosal solution 1 applic mucous mem brane TID PRN 12/05/24 Unknown Rx (Lidocaine Viscous) pain #300 mL bupropion HCl 150 mg 24 hr tablet, 300 mg PO QDAY 12/0401/01/25 08:00 History extended release lidocaine-prilocaine 2.5 %-2.5 % 1 applic topical ONCE PRN port 01/08/25 Unknown Rx topical cream access 30 days #30 grams ondansetron 8 mg disintegrating 8 mg PO Q8H PRN nausea and 01/08/25 Unknown Rx tablet vomiting #30 tabs Allergy/AdvReac Type Severity Reaction Status Date / Time No Known Allergies Allergy Verified 01/10/25 06:21 Family History Other Arthritis Bowel disease Colon cancer Diabetes Heart disease High cholesterol Hypertension Osteoporosis Surgical History History of right knee joint replacement History of esophagogastroduodenoscopy (EGD) History of ankle surgery History of tonsillectomy History of colonoscopy History of left knee replacement History of total left hip replacement History of total right hip replacement History of nasal surgery Social History Smoking Status: Never smoker alcohol intake: never substance use type: does not use what type of physical activity do you participate in: walking Review of Systems (Anesthesia) ROS Narrative System reviewed and no additional complaints, except as documented.
--- NOTE | 2025-01-10 07:18 | PCM.HP.BLA ---
History and Physical Date of Admission: 01/10/25 Date of Service: 01/03/25 MR#: [id number] Acct: [id number] Name: CYNDEE HAWKINS Rep #: [id number] : 1960 Provider: Dr. Olga Jacobo MD Age/Sex: 64/M Location: [facility] Status: Signed Intake Vital Signs 12/27/2512:04 01/01/2511:58 01/03/2509:43 Height 5 ft 11 in 5 ft 11 in 5 ft 11 in Weight: 196 lb BMI 27.3 BP 108/72 Blood Pressure Location Rt brachial Position Sitting Respiration 17 Pulse 83 Pulse Source Monitor Pulse Oximetry (%) 95 Oxygen Delivery Method room air Intake Visit Reasons: PORT PLACEMENT Chief Complaint: port placement Is patient in pain?: No Allergies No Known Allergies Allergy (Verified 01/03/25 09:44) Medications ?Medication ?Instructions ?Recorded ?Confirmed ?Type sertraline 100 mg tablet 200 mg PO DAILY 11/29/24 01/03/25 History amitriptyline 25 mg tablet 25 mg PO DAILY 12/05/24 01/03/25 History famotidine 20 mg tablet 20 mg PO DAILY 12/05/24 01/03/25 History hydrocodone-acetaminophen 5-325mg 1 tab PO Q6H PRN PRN pain 12/05/24 01/03/25 History 5mg-325mg lidocaine HCl 2 % mucosal solution 1 applic mucous membrane TID PRN 12/05/24 01/03/25 Rx (Lidocaine Viscous) pain #300 mL bupropion HCl 150 mg 24 hr tablet, 300 mg PO QDAY 12/19/24 01/03/25 History extended release oxycodone 5 mg/5 mL oral solution 10 mg (10 mL) PO Q6H PRN pain 7 01/01/25 01/03/25 Rx days #250 mL PFSH Medical History Tricuspid valve regurgitation Mitral valve regurgitation Autism Cancer History of Mohs micrographic surgery for skin cancer (11/26/24) Chronic constipation Wears hearing aid Wears glasses Anxiety Prostate disease Back pain OCD (obsessive compulsive disorder) Non-smoker History of stress test Intellectual disability Obsessive compulsive disorder Hearing problem History of emotional problems Arthritis Surgical History History of esophagogastroduodenoscopy (EGD) History of ankle surgery History of tonsillectomy History of colonoscopy History of left knee replacement History of total left hip replacement History of total right hip replacement History of nasal surgery Family History Other Arthritis Bowel disease Colon cancer Diabetes Heart disease High cholesterol Hypertension Osteoporosis Social History Smoking Status: Never smoker alcohol intake: never substance use type: does not use what type of physical activity do you participate in: walking HPI HPI HPI: 64-year-old male presents for port placement due to esophageal cancer. Patient is unsure of start date for chemotherapy/radiation. Patient has just had PEG tube placed by Dr. Rodriguez. MACKENZIE General General: Yes weight change; No appetite, fatigue, colon cancer or breast cancer HEENT HEENT: Yes difficulty swallowing; No eye injury, eye surgery, swollen glands or hoarseness Endo Endocrine: No thyroid disease, diabetes mellitus, thyroid cancer, Hair loss, heat intolerance or cold intolerance Skin Skin: No rash or changing moles Musc Musculoskeletal: Yes arthritis; No back problems, rheumatoid arthritis, gout or joint pain Cardio Cardiovascular: No murmur, pacemaker, heart disease, atrial fibrillation, high blood pressure, heart attack, heart stent, palpitations, shortness of breath with exertion or chest pain Psych Psychiatric: Yes depression and anxiety; No hearing voices Resp Respiratory: No shortness of breath, No sleep apnea, No cough, No COPD, No asthma, No emphysema and No wheezing Gastro Gastrointestinal: No abdominal pain, No nausea or vomiting, No diarrhea, No constipation, No blood in stool, No acid reflux, No hemorrhoids, No ulcers, No gallbladder problem and No black,tarry stools Jeet Hematologic: No blood thinners, No blood disorders, No bleeding, No anemia and No blood clots Neuro Neurologic: Yes numbness and Yes tingling Exam Const General: cooperative, healthy appearing, comfortable and no acute distress [facility] Head: normocephalic and atraumatic Neck Neck: supple Chest Other: Palpation bilateral upper chest normal Resp Effort & Inspection: normal respiratory effort Cardio Rate: regular rate GI Inspection: non-distended Palpation: nontender Other: PEG tube in place about 5.5 at the skin. Skin General: no rashes or lesions noted Neuro General: CN's II-XI intact bilaterally Extrem General: normal to inspection Psych Mental Status: mental status grossly normal Attitude: cooperative Assessment and Plan Assessment and Plan (1) Encounter for insertion of venous access port: Status: Acute (2) Esophageal adenocarcinoma: Status: Acute Comment: Discussed lower esophageal cancer-adenocarcinoma, Tx N0 M0, treatment with chemotherapy and Radiation plus/minus surgery. Sister is worried about placement of PEG tube. Plan I have discussed above with the patient- Port-a-Cath placement. Right possible left IJ Patient has been counseled as to the risks/benefits of the procedure. I have explained the risks of the surgery, including but not limited to: infection, bleeding, injury to any blood vessels/nerves, injury to lungs (such as pneumothorax or hemothorax and need for chest tube), not having any access, nonfunctioning of port due to thrombosis, infection of port, etc. the patient understands and agrees to proceed. I have answered all the patient's questions to the patient?s satisfaction and the patient has no further questions. Olga Jacobo M.D. Pager: [phone] [facility] [address] [place] [address], [facility], [address] [place] [address] Office: [phone] Coding Level of Care Code Off vis,new,level 3 Diagnoses Encounter for insertion of venous access port Z45.2 Esophageal adenocarcinoma C15.9 01/03/25 1425 <Electronically signed by Olga Jacobo MD> Date Olga Jacobo MD
[2025-01-10] MEDS: Cefazolin 1 GM/5 ML Vial 2 GM IV (07:30)
[2025-01-10] MEDS: Midazolam 2 MG/2 ML Syringe IV (07:34)
[2025-01-10] MEDS: fentaNYL 100 MCG/2 ML Ampul 50 MCG IV (07:44)
[2025-01-10] MEDS: Lidocaine 1% /Epi 1:100 (20ml) 20 ML Vial (07:50)
--- NOTE | 2025-01-10 08:04 | PCM.OPRPT ---
Operative Report (Standard) Operative Information Date of Procedure: 01/10/25 Pre-Operative Diagnosis: Z45.2, esophageal cancer Post-Operative Diagnosis: Same Surgery/Procedure Performed: Placement of right IJ Port-A-Cath Use of fluoroscopy Use of ultrasound printed circuit board preassembler: No Type of Anesthesia: Local MAC RN Documented Start/Stop Times: Operation Date: 01/10/25 07:30 Case Time Into Pre-Op 01/10/25 06:06 Out of Pre-Op 01/10/25 07:26 Anesthesia Start 01/10/25 07:30 Into Room 01/10/25 07:30 Procedure Start 01/10/25 07:44 Procedure End 01/10/25 08:04 Anesthesia End 01/10/25 08:07 Out of Room 01/10/25 08:07 Into Recovery 01/10/25 08:10 Procedure Start Time: 07:44 Procedure Stop Time: 08:04 Select all DRAINS/GRAFTS/IMPLANTS that apply: Implanted device Implanted device details: [employer] PowerPort isp M.R.I. 6Fr Lot [id number] Special Medications: Ancef 2 g IV x 1 Estimated Blood Loss: < 10 cc Specimen collected: No Description of surgery: After informed consent was given, the patient was brought to the operating room and placed in the supine position. Appropriate time out protocol was followed. Patient was then given IV conscious sedation for anesthesia. The patient's right upper chest and neck were then prepped with a surgical skin preparation and sterile surgical drapes were placed. After proper landmarks were ascertained, the skin at the upper right chest area was then infiltrated with 1:1 mixture of 1% lidocaine with epinephrine and 0.5% marcaine. A needle trocar was then inserted into the right internal jugular vein with ultrasound guidance-multiple vessels were viewed with u/s and the right IJ was chosen-- and there was good aspiration of venous blood. A wire was then threaded into the needle trocar and this was visualized under fluoroscopy to ensure that the wire was in the superior vena cava. Once this was done, then the needle trocar was removed. A small skin scar was made with an 11 blade knife at the wire entrance site. The dilator with the introducer sheath attached was then placed over the wire into the right internal jugular vein via the Seldinger technique and this was visualized under fluoroscopy. The dilator and sheath were in proper position as visualized by fluoroscopy. A subcutaneous pocket was then created caudad to the catheter insertion site. A transverse skin incision was made after the skin and subcutaneous tissues were infiltrated with local anesthetic. Blunt dissection was then used to create a space large enough for placement of the subcutaneous port. The catheter was then tunneled into the subcutaneous pocket. The wire and dilator were then removed. The catheter was then threaded into the introducer sheath and was positioned with its tip at the junction of the superior vena cava and the right atrium as visualized under fluoroscopy. The excess catheter was transected. The catheter was then attached to the subcutaneous port using manufacturers guidelines. The catheter was flushed with a heparin saline mixture prior to placement. Hemostasis was carefully controlled with electrocautery. The port was sutured to the subcutaneous fascia using 2-0 Vicryl suture at two sites. The port was then placed in the subcutaneous pocket. The incision were reapproximated with interrupted subdermal 3-0 vicryl sutures. The skin was reapproximated with 3-0 nylon suture in a interrupted fashion. Steristrips were used for reinforcement of the skin closure at IJ insertion site and a sterile opsite dressings were applied. The patient tolerated the procedure well. Surgical Findings: See operative report Complications Complications: No
--- NOTE | 2025-01-10 08:05 | DCINST_ITS ---
Discharge Instructions Procedure Port-A-Cath Diet Discharge Diet: Light diet - advance as tolerated Activity May shower in (days): 5 (Keep port site clean and dry x5 days. Neck incision okay to get wet after 1 day. Okay to lower shower and upper sponge bath. OR okay to taper off port site with a Ziploc bag to shower) Lifting Restrictions: No lifting > 15 pounds for 3 days with the arm on the side of the port Dressing / Incision Call your doctor if your incision/area has: Continuous Slow Oozing, Sudden Increased Bleeding, Increased Pain/ Swelling, Increased Redness, Foul Smelling Discharge and Swelling at the incision site Call your doctor if you observe: Fever of 101 or Higher Change Dressing in: 2 days (2-3 days- port site; ok to remove neck opsite in 1 day) Follow Up Care Please Follow Up With: Olga Jacobo MD When: In 10 days for permanent suture removal?call office for appointment Test Results: Test results from this visit will be discussed in further detail at your follow- up appointment, if applicable. Discharge Plan Admission Attending Provider: Olga Jacobo Primary Care Provider: Gerard Graves Instructions Print Language: Bolivian Discharge Orders/Prescriptions Prescriptions: Continued bupropion HCl 150 mg tablet extended release 24 hr 300 mg PO QDAY ondansetron 8 mg tablet,disintegrating 8 mg PO Q8H PRN (Reason: nausea and vomiting) Qty: 30 2RF lidocaine-prilocaine 2.5-2.5 % cream 1 applic topical ONCE PRN (Reason: port access) 30 Days Qty: 30 2RF sertraline 100 mg tablet 200 mg PO DAILY hydrocodone-acetaminophen 5-325 mg tablet 1 tab PO Q6H PRN PRN (Reason: pain) famotidine 20 mg tablet 20 mg PO DAILY PRN (Reason: gastric reflux) amitriptyline 25 mg tablet 25 mg PO DAILY lidocaine HCl [Lidocaine Viscous] 2 % solution 1 applic mucous membrane TID PRN (Reason: pain) Qty: 300 0RF Rx Instructions: p.o. as needed for esophageal pain Referrals / Follow Up: Gerard Graves DO [Primary Care Provider] - Disposition Disposition (needs filled in before D/C Order can be placed): Home, Self Care
--- NOTE | 2025-01-10 08:14 | PCM.POST.ANE ---
Anesthesia: Postop Eval I Current Vital Signs Temperature: 97.2 F Pulse Rate: 74 Blood Pressure: 91/61 Respiratory Rate: 16 Pulse Ox: 94 Oxygen Delivery Method: Nasal Cannula Oxygen Flow Rate (L/min): 2 Assessment Airway patent: Yes Spontaneous unlabored respirations: Yes Mental status: Calm and Asleep nausea: No Vomiting: No Anesthesia Complication: No Fluid Hydration Crystalloid volume administer (ml): 400 Total IV fluid infused: 400 Progress Note Anesthesia document: Postop Eval 1 completed: Yes
--- NOTE | 2025-01-10 08:22 | RAD_ITS ---
PROCEDURE: CHEST 1 VIEW (PORTABLE) 01/10/2025 REASON FOR EXAM: PORT TECHNIQUE: Frontal view of the chest. COMPARISON: AP chest of 11/05/2024. RAD/Chest 1 View (Portable) IMPRESSION: Interval placement of right-sided central venous catheter with port, with tip p rojecting at the upper right atrium. No pneumothorax is seen. Lungs are significantly hypoinflated, but no gross acute pneumonic process is s een. No pleural effusion is evident. The cardiomediastinal silhouette is stable, without evidence of cardiomegaly. No interval osseous change is noted. Reading Location: [place] [address]
--- NOTE | 2025-01-10 09:39 | POSTOPAN2_ITS ---
Anesthesia Postop Eval I Sum Postop Eval Completion status Anesthesia document: Postop Eval 1 completed: Yes Anesthesia Postop Eval I Summary Anesthesia Postop Eval I Summary: Anesthesia Postop Eval I: Assessment Summary Airway patent Yes 01/10/25 08:15 STRAIGHT CUTTER [email or web address].[email or web address] Spontaneous unlabored Yes 01/10/25 08:15 STRAIGHT CUTTER MACHINE.GDOTT respirations Mental status Calm,Asleep 01/10/25 08:15 STRAIGHT CUTTER MACHINE.GDOTT nausea No 01/10/25 08:15 STRAIGHT CUTTER MACHINE.GDOTT Vomiting No 01/10/25 08:15 STRAIGHT CUTTER MACHINE.[email or web address] Anesthesia Postop Eval I: Fluid Summary Crystalloid volume administer 400 01/10/25 08:15 STRAIGHT CUTTER MACHINE.GDOTT (ml) Colloids volume administered ( ml) Blood Product volume administered (ml) Total IV fluid infused 400 01/10/25 08:15 STRAIGHT CUTTER MACHINE.GDOTT Anesthesia Postop Eval I: Summary Notes Anesthesia Complication No 01/10/25 08:15 STRAIGHT CUTTER MACHINE.GDOTT Anesthesia Complication Comment: Post-operative progress note Anesthesia: Postop Eval II Evaluation Mental status: Awake Pain Level: 0 nausea: No Vomiting: No
--- NOTE | 2025-01-10 09:39 | PCM.POSTANE2 ---
Anesthesia Postop Eval I Sum Postop Eval Completion status Anesthesia document: Postop Eval 1 completed: Yes Anesthesia Postop Eval I Summary Anesthesia Postop Eval I Summary: Anesthesia Postop Eval I: Assessment Summary Airway patent Yes 01/10/25 08:15 ENTERPRISE APPLICATION ARCHITECT.[email or web address] Spontaneous unlabored Yes 01/10/25 08:15 ENTERPRISE APPLICATION ARCHITECT.GDOTT respirations Mental status Calm,Asleep 01/10/25 08:15 ENTERPRISE APPLICATION ARCHITECT.GDOTT nausea No 01/10/25 08:15 ENTERPRISE APPLICATION ARCHITECT.GDOTT Vomiting No 01/10/25 08:15 ENTERPRISE APPLICATION ARCHITECT.GDOTT Anesthesia Postop Eval I: Fluid Summary Crystalloid volume administer 400 01/10/25 08:15 ENTERPRISE APPLICATION ARCHITECT.GDOTT (ml) Colloids volume administered ( ml) Blood Product volume administered (ml) Total IV fluid infused 400 01/10/25 08:15 ENTERPRISE APPLICATION ARCHITECT.GDOTT Anesthesia Postop Eval I: Summary Notes Anesthesia Complication No 01/10/25 08:15 ENTERPRISE APPLICATION ARCHITECT.GDOTT Anesthesia Complication Comment: Post-operative progress note Anesthesia: Postop Eval II Evaluation Mental status: Awake Pain Level: 0 nausea: No Vomiting: No
== END 2025-01-10 09:05 | disposition home or self-care (01) ==
LOC: SDC 05:58 → AC 06:00
PROVIDERS: PCP Student in an Organized Health Care Education/Training Program; Referring Provider Surgery; Visit Provider Surgery
PROC: (CPT 36561; principal; 2025-01-10 07:15)
DX: Z45.2 Encounter for adjustment and management of vascular access device (principal); C15.9 Malignant neoplasm of esophagus, unspecified; Z93.1 Gastrostomy status; Z80.0 Family history of malignant neoplasm of digestive organs; F41.9 Anxiety disorder, unspecified; F42.9 Obsessive-compulsive disorder, unspecified; F84.0 Autistic disorder
CPT/HCPCS: 36561; 00532; 71045; 77001; J2405

== ENCOUNTER 2025-04-03 10:00 | Outpatient (RCR) | payer OTHER, SELFPAY ==
--- NOTE | 2025-04-08 10:10 | NS ---
04/08/25: Received call from patient's sister Mirtha on 04/05/25 regarding [facility] requesting updated MD/RDN notes in order to send order for tube feeding supplies out. Called [facility] who reports they didn't receive information sent by RDN on 03/25/25. RDN re-faxed information today to [phone]. Called to update Mirtha. She reports patient has 6 days worth of enteral nutrition formula left. Plan for this RDN to call [facility] about order status on 04/10/25. If order hasn't been sent out will plan to provide Mirtha with formula samples to ensure patient has nutrition over this upcoming weekend. Juani Larios RDN, LD
== END 2025-04-05 23:59 ==
LOC: NS 10:00
PROVIDERS: PCP Student in an Organized Health Care Education/Training Program; Visit Provider Student in an Organized Health Care Education/Training Program
DX: Z71.3 Dietary counseling and surveillance (principal); C15.9 Malignant neoplasm of esophagus, unspecified; R63.4 Abnormal weight loss

== ENCOUNTER 2025-04-22 07:19 | Day surgery (SDC) | payer MEDICARE, OTHER, SELFPAY ==
[2025-04-22] VITALS (8 sets, daily range): BP systolic 98–125; BP diastolic 70–86; PULSE 72–110; RESP 16; TEMP 36.4–37; O2SAT 93–97; BMI 25.2
--- NOTE | 2025-04-22 07:29 | H&P.OPEN ---
HPI - General General Date of Service: 04/22/25 HPI Narrative CYNDEE HAWKINS, is a 65 M who presents for EGD for follow-up of esophageal cancer. Patient did complete treatment 02/22/2025 radiation and chemo was completed in late January. Patient still has some issues eating p.o. sounds like things still may be getting caught patient's previous EGD from December did show obstructing mass which needed to be dilated prior to treatment. [facility] Medical History Cancer Encounter for chemotherapy management Encounter for education Tricuspid valve regurgitation Mitral valve regurgitation Autism Cancer History of Mohs micrographic surgery for skin cancer (11/26/24) Chronic constipation Wears hearing aid Wears glasses Anxiety Prostate disease Back pain OCD (obsessive compulsive disorder) Non-smoker History of stress test Intellectual disability Obsessive compulsive disorder Hearing problem History of emotional problems Arthritis Home Medications Medication Instructions Recorded Last Taken Type sertraline 100 mg tablet 200 mg PO QHS 11/29/24 01/01/25 08:00 History lidocaine-prilocaine 2.5 %-2.5 % 1 applic topical ONCE PRN port 01/08/25 Unknown Rx topical cream access 30 days #30 grams ondansetron 8 mg disintegrating 8 mg PO Q8H PRN nausea and 01/08/25 Unknown Rx tablet vomiting #30 tabs pantoprazole 40 mg tablet,delayed 40 mg PO BID 03/21/25 04/22/25 05:30 History release MAGIC MOUTH WASH (BMX) 180 mL 15 ml PO .qid PRN MOUTH SORE 04/18/25 Unknown History suspension amitriptyline 50 mg tablet 50 mg PO QHS 04/18/25 Unknown History bupropion HCl 300 mg 24 hr tablet, 300 mg PO QHS 04/18/25 Unknown History extended release lorazepam 1 mg tablet 1 mg PO BID anxiety 04/18/25 Unknown History oxycodone 5 mg/5 mL oral solution 10 mg PO Q6H PRN pain 04/18/25 Unknown History Allergy/AdvReac Type Severity Reaction Status Date / Time No Known Allergies Allergy Verified 04/22/25 07:37 Family History Other Arthritis Bowel disease Colon cancer Diabetes Heart disease High cholesterol Hypertension Osteoporosis Surgical History History of vascular access device History of esophagogastroduodenoscopy (EGD) History of ankle surgery History of tonsillectomy History of colonoscopy History of left knee replacement History of total left hip replacement History of total right hip replacement History of nasal surgery Social History Smoking Status: Never smoker alcohol intake: never substance use type: does not use what type of physical activity do you participate in: walking Past Medical/Surgical History Planned Operation Planned Operative Procedure(s): EGD S.O.S: No Previous Hospitalizations/Surgeries HX Hospitalizations: No HX of Surgeries: RIGHT FOOT SURGERY,NOSE SURGERY,KNEE ARTHROSCOPIC, LT HIP REPLACEMENT,TONSILS Any Problems With Anesthesia: Yes (IRRITABILITY AND AGITATION) You/Your Family Experience Fever (Hyperthermia) With Anes: No Cholinesterase deficiency: No Cardiovascular Hx Chest Pain within Last 2 months: No Hx of Irregular Heartbeat and/or Afib: No Hx Heart Attack: No Hx Congestive Heart Failure: No Hx Rheumatic Fever: No Hx Hypertension: No Hx Internal Defibrillator: No Hx Pacemaker: No Hx Cardiac Catheterization: No Hx Cardiac Surgery/Stents/Etc.: No Hx Stress Test: Yes (2008 AT [facility]) Hx Pain in Legs when Walking/Leg Cramps: No Respiratory Chronic Cough: No HX of Shortness of Breath: No Hoarseness: No Hx Chronic Obstructive Pulmonary Disease (COPD): No Hx Asthma: No Hx Emphysema: No Hx Sleep Apnea: No CPAP: No BIPAP: No Hx Respiratory Tract Infection/Cold (presently): No Do You Snore Loudly (louder than talking or can be heard): No Do You Often Feel Tired/ Fatigued/ Sleepy Dring Daytime?: Yes Has Anyone Observed You Stop Breathing During Sleep?: No Result (for STOP score): Negative Hx Smoking: No Smoking Status: Never smoker Gastrointestinal Hx Gastrointestinal Disorders: No Hx Gastrointestinal Bleed: No Hx Ulcer: No Hx Hiatal Hernia: No Difficulty Chewing/Swallowing: No Special diet followed at home: No Hx Unplanned Weight Loss of 20#: No HX Unplanned Weight Gain of 20#: No Neurological Hx Seizures: Yes (ON MEDS A CHILD, NEVER SEIZED) HX Syncope/Blackout Spells/Unconsciousness: No Hx Transient Ischemic Attacks (TIA): No Hx Multiple Sclerosis: No Hx Parkinson's Disease: No Hx Head/Neck Injury: No Hx Headaches: Yes (SINUS IVERSON) Hx Back Injury/Pain: Yes Recent Onset of Speech Difficulty: No Restless Legs: No Does patient have nerve stimulator: No Blood Disorder Hx Leukemia: No Bleeding Tendencies: Yes (NASAL BLEEDING AFTER LAST SURGERY) Hx Deep Vein Thrombosis: No Hx High Cholesterol: No Blood Transmitted Disease: No Hx Hepatitis: No Hx Cirrhosis: No Hx Anemia: No Hx Blood Disorders: No Reproduction : No Is Patient Lactating: No Hx Hysterectomy: No Hx Tubal Ligation: No Are You Post Menopause: No Genitourinary Hx Renal Disease: No Musculoskeletal Hx Arthritis: Yes (OA) Hx Rheumatoid Arthritis: No Hx Gout: No Recent Onset of an Orthopedic Problem: No Endocrine Hx Diabetes: No Thyroid Disease: No Hx Steroid Therapy: Yes (FOR ARTHRITIS) Psycho/Social Hx Substance Use: No Hx Alcohol Use: No Hx Anxiety: Yes Hx Depression: No Mental Illness: No Hx Dementia: No Miscellaneous Hx Cancer: No Recent Exposure to Contagious Disease: No Hx of C-Diff: No Any Loose Teeth: No Allergies No Known Allergies Allergy (Verified 04/22/25 07:37) Maternal: Family History Other Arthritis Bowel disease Colon cancer Diabetes Heart disease High cholesterol Hypertension Osteoporosis No pertinent history Paternal: Family History Other Arthritis Bowel disease Colon cancer Diabetes Heart disease High cholesterol Hypertension Osteoporosis No pertinent history Sibling: Family History Other Arthritis Bowel disease Colon cancer Diabetes Heart disease High cholesterol Hypertension Osteoporosis No pertinent history Discharge Is Pt Admitted From a [facility], or a [facility]: No Who Could Help: FAMILY/AIDE After D/C, Where Do you Plan to Go: Return Home From the PAT History Number of Risk Factors: 2 Physical Exam Const alert, oriented x3 and no apparent distress HEENT normocephalic and head/scalp atraumatic Resp normal respiratory effort Cardio regular rate GI soft to palpation; Negative for non-tender or non-distended GI Narrative: PEG tube in place without signs of infection Extremity no clubbing, cyanosis or edema Skin no rashes or lesions noted Neuro CN's II-XII intact bilaterally Psych mental status grossly normal Assessment & Plan Assessment/Plan (1) Esophageal adenocarcinoma: PLAN: Plan I have discussed the above with the patient. I have offered the patient esophagogastroduodenoscopy for evaluation. If patient would need dilated patient would have to come back and likely have an EGD with GI I have explained the risks/benefits of the procedure and described the procedure. I have discussed the risks with the patient, including but not limited to: infection, bleeding, perforation of the GI tract requiring emergency surgery, inability to complete the procedure, injury to any internal organs, complications of anesthesia, etc. - the patient understands and agrees to proceed. I have answered all the patient's questions to the patient's satisfaction and the patient has no further questions. Olga Jacobo M.D. Pager: [phone] [facility] [address] [place] [address], [address] [place] [address] Office: [phone] Surgery Risks - Colonoscopy Risks Include but are not Limited To: Risks include but are not limited to: Bleeding, perforation requiring further surgery, inability to complete colonoscopy requiring barium enema.
--- OUTSIDE RECORDS SUMMARY | 2025-04-22 07:32 | XMS RPT_ITS | CCD ---
Author Organization [facility] Care Team Providers Care Director Of Rehabilitative Services Name Role Phone VALDO ANN Unavailable Unavail able VALDO ANN Unavailable Unavail able ANNA VEGA DO Primary Care Physician [phone] Admitting Unavailable JAY JAY SCANLON DR Primary Care Unavailable JAY JAY SCANLON DR Attending Unavailable JAIME ROACH DO Consulting Unavailable PROVIDER, UNKNOWN Consulting Unavailable JAY JAY SCANLON DR Primary Care Unavailable JAY JAY SCANLON DR Attending Unavailable JAIME ROACH DO Consulting Unavailable JAY JAY SCANLON DR Admitting Unavailable PROVIDER, UNKNOWN Consulting Unavailable ANNA VEGA DO Attending Unavailable GARY PIERCE, ANNA Primary Care Unavailable LEE VALADEZ, DR GINA Glass Attending Elaine VEGA DO, ANNA Primary Care Unavailable KEREN GARCIA MD Attending Unavailable GARY PIERCE, ANNA Primary Care Unavailable GARY PIERCE, ANNA Attending Unavailable GARY PIERCE, ANNA Primary Care Unavailable JAY JAY SCANLON MD Attending Unavailable ANNA VEGA DO Primary [...] Unavailable Halko , Anna Primary Care Provider [phone] HALKO DO, ANNA Primary Care Unavailable HALKO DO, ANNA Attending Unavailable HALKO DO, ANNA Attending Unavailable HALKO DO, ANNA Primary Care Unavailable HALKO DO, ANNA Attending Unavailable HALKO DO, ANNA Primary Care Unavailable HALKO, ANNA Primary Care Unavailable MARCELINO BARAHONA Attending Unavailable Halko, Anna Primary Care Unavailable Aracelis, Sebastián Referring Unavailable Sebastián Hsu Attending Unavailable Halko, Anna Primary Care Unavailable Denise Garcia Referring Unavailable Denilson Harris Attending Unavailable Halko, Anna Primary Care Unavailable Sebastián Hsu Attending Unavailable Aracelis, Sebastián Referring Unavailable Halko, Anna Referring Unavailable Robotham, Olga Attending Unavailable Halko, Anna Primary Care Unavailable Halko, Anna Primary Care Unavailable Halko, Anna Referring Unavailable Car Woodson Attending Unavailable Halko, Anna Referring Unavailable Halko, Anna Primary Care Unavailable Devan Logan Attending Unavailable Halko, Anna Primary Care Unavailable Treva Tyson Attending Unavailable Sebastián Hsu Attending Unavailable Halko, Anna Primary Care Unavailable Halko, Anna Primary Care Unavailable Robotham, Olga Attending Unavailable Robotham, Olga Referring Unavailable Halko, Anna Primary Care Unavailable Sebastián Hsu Attending Unavailable Sebastián Hsu Attending Unavailable Aracelis, Sebastián Referring Unavailable Halko, Anna Primary Care Unavailable Halko, Anna Referring Unavailable Devan Logan Attending Unavailable Halko, Anna Primary Care Unavailable Halko, Anna Referring Unavailable Devan Logan Attending Unavailable Halko, Anna Primary Care Unavailable Sebastián Hsu Attending Unavailable Halko, Anna Primary Care Unavailable Aracelis, Sebastián Referring Unavailable Halko, Anna Referring Unavailable Halko, Anna Primary Care Unavailable Santi [employer], Meredith Attending Unavailable Sebastián Hsu Attending Unavailable Halko, Anna Primary Care Unavailable AracelisBoogie dillone Referring Unavailable Halko, Anna Referring Unavailable Halko, Anna Primary Care Unavailable Robotham, Olga Attending Unavailable Halko, Anna Primary Care Unavailable Halko, Anna Referring Unavailable Nadege Baltazar Attending Unavailable Sebastián Hsu Attending Unavailable Boogie Hsue Referring Unavailable Halko, Anna Primary Care Unavailable Halko, Anna Referring Unavailable Sebastián Hsu Attending Unavailable Halko, Anna Primary Care Unavailable Halko, Anna Referring Unavailable PraDevan [place] Attending Unavailable Halko, Anna Primary Care Unavailable Sebastián Hsu Attending Unavailable Aracelis, Sebastián Referring Unavailable Halko, Anna Primary Care Unavailable Halko, Anna Referring Unavailable PraDevan [place] Attending Unavailable Halko, Anna Primary Care Unavailable Halko, Anna Primary Care Unavailable Halko, Anna Referring Unavailable Friend, Car Attending Unavailable Halko, Anna Primary Care Unavailable Paul Cárdenas Attending Unavailable Sebastián Hsu Attending Unavailable Halko, Anna Primary Care Unavailable Halko, Anna Referring Unavailable Halko, Anna Primary Care Unavailable Friend, Car Attending Unavailable Friend, Car Consulting Unavailable Halko, Anna Primary Care Unavailable Robotham, Olga Attending Unavailable Robotham, Olga Consulting Unavailable Robotham, Olga Referring Unavailable Halko, Anna Primary Care Unavailable Halko, Anna Referring Unavailable Friend, Car Consulting Unavailable Friend, Car Attending Unavailable Halko, Anna Primary Care Unavailable Sebastián Hsu Attending Unavailable Sebastián Hsu Referring Unavailable Sebastián Hsu Attending Unavailable Halko, Anna Primary Care Unavailable Halko, Anna Referring Unavailable Halko, Anna Primary Care Unavailable Adonis Mooney Attending Unavailable Halko, Anna Referring Unavailable Omayra Lyle Attending Unavailable Halko, Anna Primary Care Unavailable Sebastián Hsu Attending Unavailable Halko, Anna Primary Care Unavailable Sebastián Hsu Referring Unavailable Halko, Anna Primary Care Unavailable OOTDR CROUCH Referring Unavailable Sebastián Hsu Attending Unavailable Halko, Anna Primary Care Unavailable Friend, Car Referring Unavailable Devan Logan Attending Unavailable Halko, Anna Primary Care Unavailable Halko, Anna Referring Unavailable Omayra Lyle Attending Unavailable Halko, Anna Primary Care Unavailable Robotham, Olga Attending Unavailable Devan Logan Referring Unavailable Halko, Anna Referring Unavailable Halko, Anna Primary Care Unavailable Meredith Hancock NP Attending Unavailable Paul Cárdenas Attending Unavailable Halko, Anna Primary Care Unavailable Halko, Anna Primary Care Unavailable Paul Cárdenas Attending Unavailable Halko, Anna Referring Unavailable Omayra Lyle Attending Unavailable Halko, Anna Primary Care Unavailable Halko, Anna Referring Unavailable Halko, Anna Primary Care Unavailable Adonis Mooney Attending Unavailable Halko, Anna Primary Care Unavailable Min Alvarado Attending Unavailable Min Alvarado Referring Unavailable Medications Current Medications Medication Drug [...] 5 Refill(s), 07/05/23 5:15:00 PM EST, [id number] 178, cm, 01/06/23 16:19:00 EDT, Height, [...] every six hours as needed for pain [place] 325- 5 mg oral tablet Dose = 1 tab(s), Oral, q6h, PRN for pain severe, fill on or after 12/05/2024, X 30 day(s), # 120 tab(s), 0 Refill(s), Pharmacy: [facility]/pharmacy #[id number], Esophageal carcinoma, 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, cm, 12/03/24 13:20:00 [...] qHS, # 30 tab(s), 1 Refill(s), Pharmacy: [facility]/pharmacy #[id number], 182.5, cm, 11/02/24 9:56:00 EDT, [...] BID, # 354 mL, 0 Refill(s), Pharmacy: [facility]/pharmacy #[id number], 182.5, cm, 12/03/24 13:20:00 EDT, Height, [...] qDay, # 90 tab(s), 1 Refill(s), [id number], 182.5, cm, 09/26/24 11:21:00 EDT, Height, [...] day(s), # 240 mL, 5 Refill(s), Pharmacy: [facility]/pharmacy #[id number], 178, cm, 07/18/23 17:05:00 EST, Height, kg, 07/18/23 17:05:00 EST, Dosing Weight Start Date: 07/18/23 Stop Date: 01/14/24 Status: Ordered Start: 05-04-2023 End: 10-31-2023 apply 1 dose topically once as needed CeraVe itch Relief 1% topical lotion Dose = 1 daija, Topical, 5x/Day, PRN as needed for itching, X 30 day(s), # 240 mL, 5 Refill(s), Pharmacy: [facility]/pharmacy #[id number], 178, cm, 05/04/23 16:27:00 EST, [...] qDay, # 90 tab(s), 1 Refill(s), Pharmacy: [facility]/pharmacy #[id number], 178, cm, 04/13/21 16:23:00 EST, [...] TID, # 90 cap(s), 2 Refill(s), Pharmacy: [facility]/pharmacy #[id number], Ulnar neuropathy, 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, cm, 09/26/24 [...] 11/16/2023, # 180 cap(s), 2 Refill(s), Pharmacy: [facility]/pharmacy #[id number], Cervical radiculopathy, 178, cm, 11/16/23 [...] 5 Refill(s), 03/05/25 11:03:00 AM EDT, Pharmacy: [facility]/pharmacy #[id number], 182.5, cm, 09/06/24 10:23:00 EDT, [...] 0 Refill(s), 02/15/24 3:52:00 PM EDT, Pharmacy: [facility]/pharmacy #4605, 70.1, cm, 12/29/23 13:25:00 EDT, [...] 2 Refill(s), 08/02/23 4:44:00 PM EST, Pharmacy: [facility]/pharmacy #[id number], 178, cm, 05/04/23 16:27:00 EST, Height, kg, 05/04/23 16:27:00 EST, Dosing Weight Start Date: 05/04/23 Stop Date: 08/02/23 Status: Ordered take 2 tablets by mo [facility] three times daily hydrOXYzine HCl (Atarax) [...] pain, # 100 mL, 0 Refill(s), Pharmacy: [facility]/pharmacy #[id number], 182.5, cm, 12/03/24 13:20:00 EDT, Height, kg, 12/03/24 13:20:00 EDT, Dosing Weight Start Date: 12/05/24 Status: Ordered Quantity: 100.0 Unit: mL Repeat number: 1 meloxicam 15 mg oral tablet (9 sources) Nonsteroidal Anti-inflammatory Drug Start: 01-04-2024 End: 03-05-2025 meloxicam 15 mg oral tablet Dose : 15 mg = 1 tab(s), Oral, qDay, # 90 tab(s), 1 Refill(s), Pharmacy: [facility]/pharmacy #[id number], 182.5, cm, 09/06/24 10:23:00 EDT, Height, kg, 09/06/24 10:23:00 EDT, Dosing Weight Start Date: 09/06/24 Stop Date: 03/05/25 Status: Ordered Quantity: 90.0 Unit: tab(s) Repeat number: 2 Start: 10-07-2023 meloxicam 15 m g oral tablet Dose : 15 mg = 1 tab(s), Oral, qDay, # 30 tab(s), 0 Refill(s), Pharmacy: [facility]/pharmacy #[id number], 178, cm, 11/16/23 10:41:00 EDT, [...] 1 Refill(s), 02/13/24 1:06:00 PM EDT, Pharmacy: [facility]/pharmacy #[id number], 178, cm, 08/17/23 11:42:00 EDT, [...] BIDAC, # 60 tab(s), 1 Refill(s), Pharmacy: [facility]/pharmacy #[id number], 182.5, cm, 12/06/24 8:44:00 EDT, Height, kg, 12/06/24 8:44:00 EDT, Dosing Weight Start Date: 12/06/24 Status: Ordered Quantity: 60.0 Unit: tab(s) Repeat number: 2 Start: 10-08-2024 pantoprazole 4 0 mg oral enteric coated tablet Dose : 40 mg = 1 tab(s), Oral, BIDAC, # 60 tab(s), 1 Refill(s), Pharmacy: [facility]/pharmacy #4605, 182.5, cm, 10/04/24 15:30:00 EDT, Height, kg, 10/04/24 15:30:00 EDT, Dosing Weight Start Date: 10/08/24 Status: Ordered Quantity: 60.0 Unit: tab(s) Repeat number: 2 polyethylene glycol [id number] mg powder for oral solution (13 sources) [...] stool, # 510 gram(s), 1 Refill(s), Pharmacy: [facility]/pharmacy #[id number], 178, cm, 09/23/23 10:21:00 EDT, Height, kg, 09/23/23 10:21:00 EDT, Dosing Weight Start Date: 09/23/23 Status: Ordered Start: 07-18-2023 take 17 doses by jonah th once daily as needed MiraLax oral powder for reconstitution Dose : 17 gram(s) =, Oral, qDay, PRN for hard stool, # 510 gram(s), 1 Refill(s), [facility], 178, cm, 07/18/23 17:05:00 EST, Height, kg, 07/18/23 17:05:00 EST, Dosing Weight Start Date: 07/18/23 Status: Ordered Start: 05-04-2023 take 17 doses by [facility] once daily as needed MiraLax oral powder for reconstitution Dose : 17 gram(s) =, Oral, qDay, PRN for hard stool, # 510 gram(s), 1 Refill(s), [id number], 178, cm, 05/04/23 16:27:00 EST, Height, kg, 05/04/23 16:27:00 EST, Dosing Weight Start Date: 05/04/23 Status: Ordered Start: 01-06-2023 take 17 doses by [facility] twice daily MiraLax oral powder for reconstitution Dose : 17 gram(s) =, Oral, BID, # 510 gram(s), 1 Refill(s), [id number], 178, cm, 01/06/23 16:19:00 EDT, Height, kg, 01/06/23 16:19:00 EDT, Dosing Weight Start Date: 01/06/23 Status: Ordered sennosides, custodial 8.6 mg oral tablet (7 sources) Start: 09-06-2024 senna (sennosi theodore) 8.6 mg oral tablet Dose : 8.6 mg = 1 tab(s), Oral, qDay, PRN for constipation, # 100 tab(s), 0 Refill(s), Pharmacy: [facility]/pharmacy #[id number], 182.5, cm, 12/03/24 13:20:00 EDT, Height, kg, 12/03/24 13:20:00 EDT, Dosing Weight Start Date: 12/03/24 Status: Ordered Quantity: 100.0 Unit: tab(s) Repeat number: 1 take 2 tablets by [facility] every twenty-four hours as needed for constipation [...] dose, # 180 cap(s), 1 Refill(s), Pharmacy: [facility]/pharmacy #[id number], 182.5, cm, 09/06/24 10:23:00 EDT, Height, kg, 09/06/24 10:23:00 EDT, Dosing Weight Start Date: 09/06/24 Stop Date: 03/05/25 Status: Ordered Quantity: 180.0 Unit: cap(s) Repeat number: 2 Start: 04-04-2023 End: 12-19-2023 tamsulosin 0.4 mg oral capsu le Dose : 0.8 mg = 2 cap(s), Oral, qDay, new dose, # 180 cap(s), 1 Refill(s), Pharmacy: [facility]/pharmacy #[id number], 178, cm, 05/04/23 16:27:00 EST, Height, kg, 05/04/23 16:27:00 EST, Dosing Weight Start Date: 06/22/23 Stop Date: 12/19/23 Status: Ordered take 1 capsule by [facility] once daily tamsulosin (Flomax) 0.4 MG 24 [...] qDay, # 90 cap(s), 1 Refill(s), Pharmacy: [facility] #[id number], 178, cm, 10/07/22 16:16:00 EDT, Height, kg, 10/07/22 16:16:00 EDT, Dosing Weight Start Date: 10/07/22 Status: Ordered Start: 04-13-2021 End: 10-10-2021 venlafaxine 75 mg oral capsu le, extended release Dose : 75 mg = 1 cap(s), Oral, qDay, # 90 cap(s), 1 Refill(s), Pharmacy: [facility]/pharmacy #[id number], 178, cm, 04/13/21 16:23:00 EST, [...] food, # 5 tab(s), 0 Refill(s), Pharmacy: [facility]/pharm[facility] #[facility], 178, cm, 07/01/23 13:51:00 EST, [...] lower third of esophagus] Onset: 12-12-2024 Chronic Coagulation and hemorrhagic disorders (1 source) Other secondary thrombocytopenia; 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] Onset: 02-20-2025 Episodic Complications of surgical procedures or medical care (1 source) Gastrostomy malfunction; Translations: [Gastrostomy malfunction] Onset: 01-23-2025 Episodic Conduction disorders (15 sources) 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 Developmental disorders (1 source) Unspecified intellectual disabilities; Translations: [Unspecified intellectual disabilities] Onset: 10-23-2024 Chronic Diabetes mellitus without complication (20 sources) Hyperglycemia 02-13-2019 Episodic Disorders of lipid metabolism (4 sources) Hyperlipidemia 05-25-2024 Chronic Disorders usually diagnosed in infancy, childhood, or adolescence (15 sources) Autism spectrum disorder 01-06-2023 Chronic E Codes: Adverse effects of medical drugs (1 source) Adverse effect of unspecified drugs, medicaments and biological substances, initial encounter; Translations: [Adverse effect of unspecified drugs, medicaments and biological substances, initial encounter] Onset: 02-20-2025 Episodic Headache; including migraine (1 source) Headache; Translations: [Headache, unspecified] Episodic Heart valve disorders (20 sources) Mitral valve regurgitation; Translations: [Tricuspid valve regurgitation] 02-13-2019 Chronic Hyperplasia of prostate (20 sources) Benign prostatic hyperplasia; Translations: [Benign prostatic hypertrophy without outflow obstruction] 02-13-2019 Chronic Maintenance chemotherapy; radiotherapy (1 source) Encounter for antineoplastic chemotherapy; Translations: [Encounter for antineoplastic chemotherapy] Onset: 02-20-2025 Chronic Malaise and fatigue (1 source) Asthenia; [...] and management of vascular access device] Onset: 01-16-2025 Episodic Other bone disease and musculoskeletal deformities [...] sources) Dysphagia, unspecified; Translations: [Dysphagia, unspecified] Onset: 01-28-2025 Episodic Other gastrointestinal disorders (2 sources) Heartburn; Translations: [Heartburn] Onset: 10-23-2024 Episodic Other infections; including parasitic (20 sources) History of herpes zoster 02-06-2020 Episodic Other injuries and conditions due to external causes (3 sources) At low risk for fall 01-29-2022 Episodic Other nervous system disorders (11 sources) [...] but less than 30 10-07-2022 Episodic Other nutritional; endocrine; and metabolic disorders (1 source) Abnormal weight loss; Translations: [Abnormal weight loss] Onset: 01-30-2025 Episodic Other screening for suspected conditions (not [...] Problem Date Documented Da te Episodic/Chronic Other lower respiratory disease (1 source) Shortness of breath; Translations: [Shortness of breath] Onset: 12-06-2024 Episodic Other non-epithelial cancer of skin (1 source) 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, [address] Absolute Neut 3.5 X10 3/uL Normal 2.0-7.7 [facility] Comment on above: Performed By: #### L 100.0100, L504.2610, [id number] ####[facility] [address] [place], [address] Basophils/100 WBC (Bld) 0.6 % Normal 0-1 [facility] Comment on above: Performed By: #### L 100.0100, L504.2610, [id number] ####[facility] [address] [place], [address] Eosinophils/100 WBC (Bld) 7.5 % High 0-5 [facility] Comment on above: Performed By: #### L 100.0100, L504.2610, [id number] ####[facility] [address] [place], [address] Erythrocyte distribution width (RBC) [Ratio] 17.9 % High 11.6-14.6 [facility] Comment on above: Performed By: #### L 100.0100, L504.2610, [id number] ####[facility] [address] [place], [address] Hematocrit (Bld) [Volume fraction] 38.2 % Low 40-54 [facility] Comment on above: Performed By: #### L 100.0100, L504.2610, [id number] ####[facility] [address] [place], [address] Hemoglobin (Bld) [Mass/Vol] 12.8 g/dL Low 13.0-16.5 [facility] Comment on above: Performed By: #### L 100.0100, L504.2610, [id number] ####[facility] [address] [place], [address] IG% 0.400 Normal 0.0-0.9 [facility] Comment on above: Result Comment: IG% - Immature Granulocytes (promyelocytes, myelocytes andmetamyelocytes) > 1% indicates that a LEFT SHIFT is Present. Performed By: #### L 100.0100, L504.2610, [id number] ####[facility] [address] [place], [address] Lymphocytes/100 WBC (Bld) 5.4 % Low 19-41 [facility] Comment on above: Performed By: #### L 100.0100, L504.2610, [id number] ####[facility] [address] [place], [address] MCH (RBC) [Entitic mass] 32.8 pg High 27.0-32.0 [facility] Comment on above: Performed By: #### L 100.0100, L504.2610, [id number] ####[facility] [address] [place], [address] MCHC (RBC) [Mass/Vol] 33.5 g/dL Normal 32-36 [facility] Comment on above: Performed By: #### L 100.0100, L504.2610, [id number] ####[facility] [address] [place], [address] MCV (RBC) [Entitic vol] 97.9 fL High 80-94 [facility] Comment on above: Performed By: #### L 100.0100, L504.2610, [id number] ####[facility] [address] [place], [address] Monocytes/100 WBC (Bld) 18.8 % High 0-10 [facility] Comment on above: Performed By: #### L 100.0100, L504.2610, [id number] ####[facility] [address] [place], [address] Neutrophils/100 WBC (Bld) 67.3 % Normal 47-70 [facility] Comment on above: Performed By: #### L 100.0100, L504.2610, [id number] ####[facility] [address] [place], [address] Nucleated RBC (Bld) [#/Vol] 0 10*3/uL Normal 0-5 [facility] Comment on above: Performed By: #### L 100.0100, L504.2610, [id number] ####[facility] [address] [place], [address] Platelet mean volume (Bld) [Entitic vol] 8.9 fL Normal 6.2-12.0 [facility] Comment on above: Performed By: #### L 100.0100, L504.2610, [id number] ####[facility] [address] [place], [address] Platelets (Bld) [#/Vol] 123 10*3/uL Low 150-450 [facility] Comment on above: Performed By: #### L 100.0100, L504.2610, [id number] ####[facility] [address] [place], [address] RBC (Bld) [#/Vol] 3.90 10*6/uL Low 4.6-6.2 [facility] Comment on above: Performed By: #### L 100.0100, L504.2610, [id number] ####[facility] [address] [place], [address] RDW SD 64.2 fl High 35.1-43.9 [facility] Comment on above: Performed By: #### L 100.0100, L504.2610, [id number] ####[facility] [address] [place], [address] WBC (Bld) [#/Vol] 5.2 10*3/uL Normal 4.4-11.0 [facility] Comment on above: Performed By: #### L 100.0100, L504.2610, [id number] ####[facility] [address] [place], [address] Comprehensive Metabolic Prof scon 03-21-2025 Albumin [Mass/Vol] 3.5 g/dL Normal 3.4-4.8 [facility] Comment on above: Performed By: #### L 100.0100, L504.2610, [id number] ####[facility] [address] [place], [address] Albumin/Globulin [Mass ratio] 1.2 {ratio} Normal 0.9-2.4 [facility] Comment on above: Performed By: #### L 100.0100, L504.2610, [id number] ####[facility] [address] [place], [address] ALK PHOS 86 U/L Normal 40-129 [facility] Comment on above: Performed By: #### L 100.0100, L504.2610, [id number] ####[facility] [address] [place], [address] ALT [Catalytic activity/Vol] 15 U/L Normal <=46 [facility] Comment on above: Performed By: #### L 100.0100, L504.2610, [id number] ####[facility] [address] [place], [address] AST [Catalytic activity/Vol] 25 U/L Normal <=37 [facility] Comment on above: Performed By: #### L 100.0100, L504.2610, [id number] ####[facility] [address] [place], [address] Bilirubin [Mass/Vol] 0.39 mg/dL Normal 0.00-1.30 [facility] Comment on above: Performed By: #### L 100.0100, L504.2610, [id number] ####[facility] [address] [place], [address] BUN/CRE 18.1 RATIO Normal 10-20 [facility] Comment on above: Performed By: #### L 100.0100, L504.2610, [id number] ####[facility] [address] [place], [address] Calcium [Mass/Vol] 8.9 mg/dL Normal 7.6-11.0 [facility] Comment on above: Performed By: #### L 100.0100, L504.2610, [id number] ####[facility] [address] [place], [address] Chloride [Moles/Vol] 103 mmol/L Normal 98-108 [facility] Comment on above: Performed By: #### L 100.0100, L504.2610, [id number] ####[facility] [address] [place], [address] CO2 [Moles/Vol] 25.3 mmol/L Normal 21.0-32.0 [facility] Comment on above: Performed By: #### L 100.0100, L504.2610, [id number] ####[facility] [address] [place], [address] Creatinine [Mass/Vol] 0.66 mg/dL Low 0.70-1.20 [facility] Comment on above: Performed By: #### L 100.0100, L504.2610, [id number] ####[facility] [address] [place], [address] ECRCL 120.43 ml/min Normal 50-250 [facility] Comment on above: Performed By: #### L 100.0100, L504.2610, [id number] ####[facility] [address] [place], [address] GAP 11 Normal 5-15 [facility] Comment on above: Performed By: #### L 100.0100, L504.2610, L500.4050 ####[facility] [address] [place], [address] GFR/1.73 sq M.predicted among non-blacks MDRD (S/P/Bld) [Vol rate/Area] 105 mL/min/{1.73_m2} Normal >60 [facility] Comment on above: Result Comment: mL/m in/1.73m2 CKD-EPI Creatinine Equation (2020) Performed By: #### L 100.0100, L504.2610, L500.4050 ####[facility] [address] [place], [address] Globulin (S) [Mass/Vol] 2.9 g/dL Normal 2.2-4.2 [facility] Comment on above: Performed By: #### L 100.0100, L504.2610, L500.4050 ####[facility] [address] [place], [address] Glucose [Mass/Vol] 106 mg/dL High 70-99 [facility] Comment on above: Performed By: #### L 100.0100, L504.2610, L500.4050 ####[facility] [address] [place], [address] Potassium [Moles/Vol] 4.1 mmol/L Normal 3.3-5.1 [facility] Comment on above: Performed By: #### L 100.0100, L504.2610, L500.4050 ####[facility] [address] [place], [address] Sodium [Moles/Vol] 139 mmol/L Normal 133-145 [facility] Comment on above: Performed By: #### L 100.0100, L504.2610, L500.4050 ####[facility] [address] [place], [address] T PROT 6.5 g/dL Normal 5.9-8.4 [facility] Comment on above: Performed By: #### L 100.0100, L504.2610, L500.4050 ####[facility] [address] [place], [address] Urea nitrogen [Mass/Vol] 12 mg/dL Normal 4-19 [facility] Comment on above: Performed By: #### L 100.0100, L504.2610, L500.4050 ####[facility] [address] [place], [address] LDHon - LDH 198 U/L Normal 87-241 [facility] Comment on above: Order Comment: 1 Performed By: #### L 100.0100, L504.2610, L500.4050 ####[facility] [address] [place], [address] Oncology Visit Reporton 10- Oncology Visit Report Normal [facility] Radiation Oncology Visiton 1 - Radiation Oncology Visit Normal [facility] CBC W/Diff, Automatedon - Absolute Neut Normal 2.0-7.7 [facility] Comment on above: Result Comment: NO S PECIMEN COLLECTED Performed By: #### L 100.0100, L500.4050 ####[facility] [address] [place], [address] HCT Normal 40-54 [facility] Comment on above: Result Comment: NO S PECIMEN COLLECTED Performed By: #### L 100.0100, L500.4050 ####[facility] [address] [place], [address] HGB Normal 13.0-16.5 [facility] Comment on above: Result Comment: NO S PECIMEN COLLECTED Performed By: #### L 100.0100, L500.4050 ####[facility] [address] [place], [address] MCH Normal 27.0-32.0 [facility] Comment on above: Result Comment: NO S PECIMEN COLLECTED Performed By: #### L 100.0100, L500.4050 ####[facility] [address] [place], [address] MCHC Normal 32-36 [facility] Comment on above: Result Comment: NO S PECIMEN COLLECTED Performed By: #### L 100.0100, L500.4050 ####[facility] [address] [place], [address] MCV Normal 80-94 [facility] Comment on above: Result Comment: NO S PECIMEN COLLECTED Performed By: #### L 100.0100, L500.4050 ####[facility] [address] [place], [address] NEUT% Normal 47-70 [facility] Comment on above: Result Comment: NO S PECIMEN COLLECTED Performed By: #### L 100.0100, L500.4050 ####[facility] [address] [place], [address] PLT Normal 150-450 [facility] Comment on above: Result Comment: NO S PECIMEN COLLECTED Performed By: #### L 100.0100, L500.4050 ####[facility] [address] [place], [address] RBC Normal 4.6-6.2 [facility] Comment on above: Result Comment: NO S PECIMEN COLLECTED Performed By: #### L 100.0100, L500.4050 ####[facility] [address] [place], [address] RDW CV Normal 11.6-14.6 [facility] Comment on above: Result Comment: NO S PECIMEN COLLECTED Performed By: #### L 100.0100, L500.4050 ####[facility] [address] [place], [address] RDW SD Normal 35.1-43.9 [facility] Comment on above: Result Comment: NO S PECIMEN COLLECTED Performed By: #### L 100.0100, L500.4050 ####[facility] [address] [place], [address] WBC Normal 4.4-11.0 [facility] Comment on above: Result Comment: NO S PECIMEN COLLECTED Performed By: #### L 100.0100, L500.4050 ####[facility] [address] [place], [address] Comprehensive Metabolic Prof christian 02-27-2025 ALB Normal 3.4-4.8 [facility] Comment on above: Result Comment: NO S PECIMEN COLLECTED Performed By: #### L 100.0100, L500.4050 ####[facility] [address] [place], [address] ALK PHOS Normal 40-129 [facility] Comment on above: Result Comment: NO S PECIMEN COLLECTED Performed By: #### L 100.0100, L500.4050 ####[facility] [address] [place], [address] ALT Normal <=46 [facility] Comment on above: Result Comment: NO S PECIMEN COLLECTED Performed By: #### L 100.0100, L500.4050 ####[facility] [address] [place], [address] AST Normal <=37 [facility] Comment on above: Result Comment: NO S PECIMEN COLLECTED Performed By: #### L 100.0100, L500.4050 ####[facility] [address] [place], [address] BUN Normal 4-19 [facility] Comment on above: Result Comment: NO S PECIMEN COLLECTED Performed By: #### L 100.0100, L500.4050 ####[facility] [address] [place], [address] BUN/CRE Normal 10-20 [facility] Comment on above: Result Comment: NO S PECIMEN COLLECTED Performed By: #### L 100.0100, L500.4050 ####[facility] [address] [place], [address] Calcium Normal 7.6-11.0 [facility] Comment on above: Result Comment: NO S PECIMEN COLLECTED Performed By: #### L 100.0100, L500.4050 ####[facility] [address] [place], [address] CL Normal 98-108 [facility] Comment on above: Result Comment: NO S PECIMEN COLLECTED Performed By: #### L 100.0100, L500.4050 ####[facility] [address] [place], [address] CO2 Normal 21.0-32.0 [facility] Comment on above: Result Comment: NO S PECIMEN COLLECTED Performed By: #### L 100.0100, L500.4050 ####[facility] [address] [place], [address] CREAT,SERUM Normal 0.70-1.20 [facility] Comment on above: Result Comment: NO S PECIMEN COLLECTED Performed By: #### L 100.0100, L500.4050 ####[facility] [address] [place], [address] eGFR Normal >60 [facility] Comment on above: Result Comment: NO S PECIMEN COLLECTED Performed By: #### L 100.0100, L500.4050 ####[facility] [address] [place], [address] GAP Normal 5-15 [facility] Comment on above: Result Comment: NO S PECIMEN COLLECTED Performed By: #### L 100.0100, L500.4050 ####[facility] [address] [place], [address] GLU Normal 70-99 [facility] Comment on above: Result Comment: NO S PECIMEN COLLECTED Performed By: #### L 100.0100, L500.4050 ####[facility] [address] [place], [address] Potassium Normal 3.3-5.1 [facility] Comment on above: Result Comment: NO S PECIMEN COLLECTED Performed By: #### L 100.0100, L500.4050 ####[facility] [address] [place], [address] T BILI Normal 0.00-1.30 [facility] Comment on above: Result Comment: NO S PECIMEN COLLECTED Performed By: #### L 100.0100, L500.4050 ####[facility] [address] [place], [address] T PROT Normal 5.9-8.4 [facility] Comment on above: Result Comment: NO S PECIMEN COLLECTED Performed By: #### L 100.0100, L500.4050 ####[facility] [address] [place], [address] Comprehensive Metabolic Profil Normal 133-145 [facility] Comment on above: Result Comment: NO S PECIMEN COLLECTED Performed By: #### L 100.0100, L500.4050 ####[facility] [address] [place], [address] Radiation Oncology Visiton 0 02-22-2025 Radiation Oncology Visit Normal [facility] CBC W/Diff, Automatedon 09-1 PATH REV Reviewed Normal [facility] Comment on above: Result Comment: SEE REPORT IN PATIENT'S EMR AMENDED REPORT 02/20/25 1433 PATH REV previously reported as: October Performed By: #### L 501.5200, L100.0100, L500.4050 ####[facility] [address] [place], [address] Absolute Lymph 0.06 X10 3/uL Low 0.83-4.51 [facility] Comment on above: Performed By: #### L 500.4050, L501.5200, L100.0100 ####[facility] [address] [place], [address] Absolute Neut 1.1 X10 3/uL Low 2.0-7.7 [facility] Comment on above: Performed By: #### L 500.4050, L501.5200, L100.0100 ####[facility] [address] [place], [address] Basophils/100 WBC (Bld) 0.0 % Normal 0-1 [facility] Comment on above: Performed By: #### L 500.4050, L501.5200, L100.0100 ####[facility] [address] [place], [address] Eosinophils/100 WBC (Bld) 2.4 % Normal 0-5 [facility] Comment on above: Performed By: #### L 500.4050, L501.5200, L100.0100 ####[facility] [address] [place], [address] Erythrocyte distribution width (RBC) [Ratio] 15.7 % High 11.6-14.6 [facility] Comment on above: Performed By: #### L 500.4050, L501.5200, L100.0100 ####[facility] [address] [place], [address] Hematocrit (Bld) [Volume fraction] 33.2 % Low 40-54 [facility] Comment on above: Performed By: #### L 500.4050, L501.5200, L100.0100 ####[facility] [address] [place], [address] Hemoglobin (Bld) [Mass/Vol] 11.2 g/dL Low 13.0-16.5 [facility] Comment on above: Performed By: #### L 500.4050, L501.5200, L100.0100 ####[facility] [address] [place], [address] IG% 0.600 Normal 0.0-0.9 [facility] Comment on above: Result Comment: IG% - Immature Granulocytes (promyelocytes, myelocytes andmetamyelocytes) > 1% indicates that a LEFT SHIFT is Present. Performed By: #### L 500.4050, L501.5200, L100.0100 ####[facility] [address] [place], [address] Lymphocytes/100 WBC (Bld) 3.6 % Low 19-41 [facility] Comment on above: Performed By: #### L 500.4050, L501.5200, L100.0100 ####[facility] [address] [place], [address] MCH (RBC) [Entitic mass] 31.6 pg Normal 27.0-32.0 [facility] Comment on above: Performed By: #### L 500.4050, L501.5200, L100.0100 ####[facility] [address] [place], [address] MCHC (RBC) [Mass/Vol] 33.7 g/dL Normal 32-36 [facility] Comment on above: Performed By: #### L 500.4050, L501.5200, L100.0100 ####[facility] [address] [place], [address] MCV (RBC) [Entitic vol] 93.8 fL Normal 80-94 [facility] Comment on above: Performed By: #### L 500.4050, L501.5200, L100.0100 ####[facility] [address] [place], [address] Monocytes/100 WBC (Bld) 28.0 % High 0-10 [facility] Comment on above: Performed By: #### L 500.4050, L501.5200, L100.0100 ####[facility] [address] [place], [address] Neutrophils/100 WBC (Bld) 65.4 % Normal 47-70 [facility] Comment on above: Performed By: #### L 500.4050, L501.5200, L100.0100 ####[facility] [address] [place], [address] Nucleated RBC (Bld) [#/Vol] 0 10*3/uL Normal 0-5 [facility] Comment on above: Performed By: #### L 500.4050, L501.5200, L100.0100 ####[facility] [address] [place], [address] Platelet mean volume (Bld) [Entitic vol] 9.8 fL Normal 6.2-12.0 [facility] Comment on above: Performed By: #### L 500.4050, L501.5200, L100.0100 ####[facility] [address] [place], [address] Platelets (Bld) [#/Vol] 111 10*3/uL Low 150-450 [facility] Comment on above: Performed By: #### L 500.4050, L501.5200, L100.0100 ####[facility] [address] [place], [address] RBC (Bld) [#/Vol] 3.54 10*6/uL Low 4.6-6.2 [facility] Comment on above: Performed By: #### L 500.4050, L501.5200, L100.0100 ####[facility] [address] [place], [address] RDW SD 46.2 fl High 35.1-43.9 [facility] Comment on above: Performed By: #### L 500.4050, L501.5200, L100.0100 ####[facility] [address] [place], [address] WBC (Bld) [#/Vol] 1.7 10*3/uL Low 4.4-11.0 [facility] Comment on above: Performed By: #### L 500.4050, L501.5200, L100.0100 ####[facility] [address] [place], [address] Comprehensive Metabolic Prof [facility] 02-20-2025 Albumin [Mass/Vol] 3.5 g/dL Normal 3.4-4.8 [facility] Comment on above: Performed By: #### L 500.4050, L501.5200, L100.0100 ####[facility] [address] [place], [address] Albumin/Globulin [Mass ratio] 1.2 {ratio} Normal 0.9-2.4 [facility] Comment on above: Performed By: #### L 500.4050, L501.5200, L100.0100 ####[facility] [address] [place], [address] ALK PHOS 76 U/L Normal 40-129 [facility] Comment on above: Performed By: #### L 500.4050, L501.5200, L100.0100 ####[facility] [address] [place], [address] ALT [Catalytic activity/Vol] 10 U/L Normal <=46 [facility] Comment on above: Performed By: #### L 500.4050, L501.5200, L100.0100 ####[facility] [address] [place], [address] AST [Catalytic activity/Vol] 16 U/L Normal <=37 [facility] Comment on above: Performed By: #### L 500.4050, L501.5200, L100.0100 ####[facility] [address] [place], [address] Bilirubin [Mass/Vol] 0.26 mg/dL Normal 0.00-1.30 [facility] Comment on above: Performed By: #### L 500.4050, L501.5200, L100.0100 ####[facility] [address] [place], [address] BUN/CRE 18.1 RATIO Normal 10-20 [facility] Comment on above: Performed By: #### L 500.4050, L501.5200, L100.0100 ####[facility] [address] [place], [address] Calcium [Mass/Vol] 9.0 mg/dL Normal 7.6-11.0 [facility] Comment on above: Performed By: #### L 500.4050, L501.5200, L100.0100 ####[facility] [address] [place], [address] Chloride [Moles/Vol] 105 mmol/L Normal 98-108 [facility] Comment on above: Performed By: #### L 500.4050, L501.5200, L100.0100 ####[facility] [address] [place], [address] CO2 [Moles/Vol] 24.6 mmol/L Normal 21.0-32.0 [facility] Comment on above: Performed By: #### L 500.4050, L501.5200, L100.0100 ####[facility] [address] [place], [address] Creatinine [Mass/Vol] 0.56 mg/dL Low 0.70-1.20 [facility] Comment on above: Performed By: #### L 500.4050, L501.5200, L100.0100 ####[facility] [address] [place], [address] ECRCL 141.93 ml/min Normal 50-250 [facility] Comment on above: Performed By: #### L 500.4050, L501.5200, L100.0100 ####[facility] [address] [place], [address] GAP 11 Normal 5-15 [facility] Comment on above: Performed By: #### L 500.4050, L501.5200, L100.0100 ####[facility] [address] [place], [address] GFR/1.73 sq M.predicted among non-blacks MDRD (S/P/Bld) [Vol rate/Area] 110 mL/min/{1.73_m2} Normal >60 [facility] Comment on above: Result Comment: mL/m in/1.73m2 CKD-EPI Creatinine Equation (2020) Performed By: #### L 500.4050, L501.5200, L100.0100 ####[facility] [address] [place], [address] Globulin (S) [Mass/Vol] 2.9 g/dL Normal 2.2-4.2 [facility] Comment on above: Performed By: #### L 500.4050, L501.5200, L100.0100 ####[facility] [address] [place], [address] Glucose [Mass/Vol] 120 mg/dL High 70-99 [facility] Comment on above: Performed By: #### L 500.4050, L501.5200, L100.0100 ####[facility] [address] [place], [address] Potassium [Moles/Vol] 4.1 mmol/L Normal 3.3-5.1 [facility] Comment on above: Performed By: #### L 500.4050, L501.5200, L100.0100 ####[facility] [address] [place], [address] Sodium [Moles/Vol] 141 mmol/L Normal 133-145 [facility] Comment on above: Performed By: #### L 500.4050, L501.5200, L100.0100 ####[facility] [address] [place], [address] T PROT 6.4 g/dL Normal 5.9-8.4 [facility] Comment on above: Performed By: #### L 500.4050, L501.5200, L100.0100 ####[facility] [address] [place], [address] Urea nitrogen [Mass/Vol] 10 mg/dL Normal 4-19 [facility] Comment on above: Performed By: #### L 500.4050, L501.5200, L100.0100 ####[facility] [address] [place], [address] Magnesiumon 02-20-2025 Magnesium [Mass/Vol] 2.0 mg/dL Normal 1.5-2.2 [facility] Comment on above: Performed By: #### L 500.4050, L501.5200, L100.0100 ####[facility] [address] [place], [address] Oncology Visit Reporton 02-04 Oncology Visit Report Normal [facility] Radiation Oncology Visiton 0 02-20-2025 Radiation Oncology Visit Normal [facility] CBC W/Diff, Automatedon 02-04 PLT EST MKD DEC Normal ADEQ [facility] Comment on above: Performed By: #### L 100.0100, L500.4050, L501.5200 ####[facility] [address] [place], [address] SMEAR COMMENT COMMENT Normal [facility] Comment on above: Result Comment: NEUTROPENIA.LYMPHOPENIA.LEUKOCYTOPENIA.THROMBOCYTOPENIA. Performed By: #### L 100.0100, L500.4050, L501.5200 ####[facility] [address] [place], [address] Comprehensive Metabolic Prof ilon 02-13-2025 Albumin [Mass/Vol] 3.6 g/dL Normal 3.4-4.8 [facility] Comment on above: Performed By: #### L 100.0100, L500.4050, L501.5200 ####[facility] [address] [place], [address] Albumin/Globulin [Mass ratio] 1.2 {ratio} Normal 0.9-2.4 [facility] Comment on above: Performed By: #### L 100.0100, L500.4050, L501.5200 ####[facility] [address] [place], [address] ALK PHOS 70 U/L Normal 40-129 [facility] Comment on above: Performed By: #### L 100.0100, L500.4050, L501.5200 ####[facility] [address] [place], [address] ALT [Catalytic activity/Vol] 10 U/L Normal <=46 [facility] Comment on above: Performed By: #### L 100.0100, L500.4050, L501.5200 ####[facility] [address] [place], [address] AST [Catalytic activity/Vol] 17 U/L Normal <=37 [facility] Comment on above: Performed By: #### L 100.0100, L500.4050, L501.5200 ####[facility] [address] [place], [address] Bilirubin [Mass/Vol] 0.29 mg/dL Normal 0.00-1.30 [facility] Comment on above: Performed By: #### L 100.0100, L500.4050, L501.5200 ####[facility] [address] [place], [address] BUN/CRE 20.2 RATIO High 10-20 [facility] Comment on above: Performed By: #### L 100.0100, L500.4050, L501.5200 ####[facility] [address] [place], [address] Calcium [Mass/Vol] 8.9 mg/dL Normal 7.6-11.0 [facility] Comment on above: Performed By: #### L 100.0100, L500.4050, L501.5200 ####[facility] [address] [place], [address] Chloride [Moles/Vol] 103 mmol/L Normal 98-108 [facility] Comment on above: Performed By: #### L 100.0100, L500.4050, L501.5200 ####[facility] [address] [place], [address] CO2 [Moles/Vol] 23.4 mmol/L Normal 21.0-32.0 [facility] Comment on above: Performed By: #### L 100.0100, L500.4050, L501.5200 ####[facility] [address] [place], [address] Creatinine [Mass/Vol] 0.64 mg/dL Low 0.70-1.20 [facility] Comment on above: Performed By: #### L 100.0100, L500.4050, L501.5200 ####[facility] [address] [place], [address] ECRCL 124.19 ml/min Normal 50-250 [facility] Comment on above: Performed By: #### L 100.0100, L500.4050, L501.5200 ####[facility] [address] [place], [address] GAP 12 Normal 5-15 [facility] Comment on above: Performed By: #### L 100.0100, L500.4050, L501.5200 ####[facility] [address] [place], [address] GFR/1.73 sq M.predicted among non-blacks MDRD (S/P/Bld) [Vol rate/Area] 106 mL/min/{1.73_m2} Normal >60 [facility] Comment on above: Result Comment: mL/m in/1.73m2 CKD-EPI Creatinine Equation (2020) Performed By: #### L 100.0100, L500.4050, L501.5200 ####[facility] [address] [place], [address] Globulin (S) [Mass/Vol] 3.0 g/dL Normal 2.2-4.2 [facility] Comment on above: Performed By: #### L 100.0100, L500.4050, L501.5200 ####[facility] [address] [place], [address] Glucose [Mass/Vol] 122 mg/dL High 70-99 [facility] Comment on above: Performed By: #### L 100.0100, L500.4050, L501.5200 ####[facility] [address] [place], [address] Potassium [Moles/Vol] 4.0 mmol/L Normal 3.3-5.1 [facility] Comment on above: Performed By: #### L 100.0100, L500.4050, L501.5200 ####[facility] [address] [place], [address] Sodium [Moles/Vol] 139 mmol/L Normal 133-145 [facility] Comment on above: Performed By: #### L 100.0100, L500.4050, L501.5200 ####[facility] [address] [place], [address] T PROT 6.6 g/dL Normal 5.9-8.4 [facility] Comment on above: Performed By: #### L 100.0100, L500.4050, L501.5200 ####[facility] [address] [place], [address] Urea nitrogen [Mass/Vol] 13 mg/dL Normal 4-19 [facility] Comment on above: Performed By: #### L 100.0100, L500.4050, L501.5200 ####[facility] [address] [place], [address] Magnesiumon 02-13-2025 Magnesium [Mass/Vol] 1.9 mg/dL Normal 1.5-2.2 [facility] Comment on above: Performed By: #### L 100.0100, L500.4050, L501.5200 ####[facility] [address] [place], [address] Oncology Visit Reporton 02-04 Oncology Visit Report Normal [facility] Radiation Oncology Visiton 0 02-13-2025 Radiation Oncology Visit Normal [facility] Radiation Oncology Visiton 0 02-07-2025 Radiation Oncology Visit Normal [facility] Comprehensive Metabolic Prof ilon 02-06-2025 Albumin [Mass/Vol] 3.9 g/dL Normal 3.4-4.8 [facility] Comment on above: Performed By: #### L 501.5200, L100.0100, L500.4050 ####[facility] [address] [place], [address] Albumin/Globulin [Mass ratio] 1.1 {ratio} Normal 0.9-2.4 [facility] Comment on above: Performed By: #### L 501.5200, L100.0100, L500.4050 ####[facility] [address] [place], [address] ALK PHOS 74 U/L Normal 40-129 [facility] Comment on above: Performed By: #### L 501.5200, L100.0100, L500.4050 ####[facility] [address] [place], [address] ALT [Catalytic activity/Vol] 13 U/L Normal <=46 [facility] Comment on above: Performed By: #### L 501.5200, L100.0100, L500.4050 ####[facility] [address] [place], [address] AST [Catalytic activity/Vol] 18 U/L Normal <=37 [facility] Comment on above: Performed By: #### L 501.5200, L100.0100, L500.4050 ####[facility] [address] [place], [address] Bilirubin [Mass/Vol] 0.52 mg/dL Normal 0.00-1.30 [facility] Comment on above: Performed By: #### L 501.5200, L100.0100, L500.4050 ####[facility] [address] [place], [address] BUN/CRE 21.8 RATIO High 10-20 [facility] Comment on above: Performed By: #### L 501.5200, L100.0100, L500.4050 ####[facility] [address] [place], [address] Calcium [Mass/Vol] 9.3 mg/dL Normal 7.6-11.0 [facility] Comment on above: Performed By: #### L 501.5200, L100.0100, L500.4050 ####[facility] [address] [place], [address] Chloride [Moles/Vol] 101 mmol/L Normal 98-108 [facility] Comment on above: Performed By: #### L 501.5200, L100.0100, L500.4050 ####[facility] [address] [place], [address] CO2 [Moles/Vol] 21.6 mmol/L Normal 21.0-32.0 [facility] Comment on above: Performed By: #### L 501.5200, L100.0100, L500.4050 ####[facility] [address] [place], [address] Creatinine [Mass/Vol] 0.76 mg/dL Normal 0.70-1.20 [facility] Comment on above: Performed By: #### L 501.5200, L100.0100, L500.4050 ####[facility] [address] [place], [address] ECRCL 104.58 ml/min Normal 50-250 [facility] Comment on above: Performed By: #### L 501.5200, L100.0100, L500.4050 ####[facility] [address] [place], [address] GAP 14 Normal 5-15 [facility] Comment on above: Performed By: #### L 501.5200, L100.0100, L500.4050 ####[facility] [address] [place], [address] GFR/1.73 sq M.predicted among non-blacks MDRD (S/P/Bld) [Vol rate/Area] 100 mL/min/{1.73_m2} Normal >60 [facility] Comment on above: Result Comment: mL/m in/1.73m2 CKD-EPI Creatinine Equation (2020) Performed By: #### L 501.5200, L100.0100, L500.4050 ####[facility] [address] [place], [address] Globulin (S) [Mass/Vol] 3.5 g/dL Normal 2.2-4.2 [facility] Comment on above: Performed By: #### L 501.5200, L100.0100, L500.4050 ####[facility] [address] [place], [address] Glucose [Mass/Vol] 144 mg/dL High 70-99 [facility] Comment on above: Performed By: #### L 501.5200, L100.0100, L500.4050 ####[facility] [address] [place], [address] Potassium [Moles/Vol] 4.0 mmol/L Normal 3.3-5.1 [facility] Comment on above: Performed By: #### L 501.5200, L100.0100, L500.4050 ####[facility] [address] [place], [address] Sodium [Moles/Vol] 137 mmol/L Normal 133-145 [facility] Comment on above: Performed By: #### L 501.5200, L100.0100, L500.4050 ####[facility] [address] [place], [address] T PROT 7.4 g/dL Normal 5.9-8.4 [facility] Comment on above: Performed By: #### L 501.5200, L100.0100, L500.4050 ####[facility] [address] [place], [address] Urea nitrogen [Mass/Vol] 17 mg/dL Normal 4-19 [facility] Comment on above: Performed By: #### L 501.5200, L100.0100, L500.4050 ####[facility] [address] [place], [address] Magnesiumon 02-06-2025 Magnesium [Mass/Vol] 1.9 mg/dL Normal 1.5-2.2 [facility] Comment on above: Performed By: #### L 501.5200, L100.0100, L500.4050 ####[facility] [address] [place], [address] Oncology Visit Reporton Oncology Visit Report Normal [facility] SURG PATH REQUESTon 02-06-20 Case Report Normal [facility] Comment on above: Result Comment: Surg ical Pathology Report Case: [id number] Authorizing Provider: Naomi Loera MD Collected: 02/05/2025 08:46 AM Ordering Location: [facility] Received: 02/05/2025 08:39 AM [place] Pathologist: RICO Potts, PhD Specimen: SURG PATH, Outside block :[id number] (A1), Esophagus, mass, biopsy; Molecular Testing Performed By: #### S URGP #### [facility] (DEFAULT) [address] [place] [address] Clinical History Normal [facility] Comment on above: Result Comment: Rece ived is a request from Naomi Loera MD at [facility] for molecular testing on a paraffin block received from [facility]. Performed By: #### S URGP #### [facility] (DEFAULT) [address] [place] [address] Gross Description Normal [facility] Comment on above: Result Comment: The following material(s) are received from [facility], [address] [place] [address] with an identifying Surgical Pathology Report which include results of the IHC for HER2 and Mismatch Repair proteins performed at [facility]: 1 paraffin block marked [id number] (A1), which is submitted to the [facility] histology/IHC laboratory for recutting and additional staining for molecular testing: HER2, FISH. Materials will be returned upon completion. Grosser for this case was: Nessa Staples Performed By: #### S URGP #### [facility] (DEFAULT) [address] [address] Microscopic Description Tissue was assessed by a molecular pathologist to select areas for analysis and to correlate immunostaining with histology. No morphologic assessment was requested. [facility] Comment on above: Performed By: #### S URGP #### [facility] (DEFAULT) [address] [address] Pathologic Diagnosis [facility] Comment on above: Result Comment: Outs john Block: [id number] (11/30/24) A. Esophagus, mass, biopsy: HER2, FISH: Indeterminate (ratio: 1.3; copy number/cell: 4.6) Please see separate FISH report for details. at 0953 EDT Performed By: #### S URGP #### [facility] (DEFAULT) [address] [address] Professional Interpretation Performed at: [facility] Comment on above: Result Comment: [facility] For Immediate Release to Patient's [facility]? Yes [address] [address] Performed By: #### S URGP #### [facility] (DEFAULT) [address] [address] CBC W/Diff, Automatedon - SMEAR COMMENT COMMENT [facility] Comment on above: Result Comment: LYMP HOPENIA. Performed By: #### L 100.0100, L500.4050, L501.5200 ####[facility] [address] [place], [place], [id number] Comprehensive Metabolic Prof ilon 01-30-2025 Albumin [Mass/Vol] 4.0 g/dL Normal 3.4-4.8 [facility] Comment on above: Performed By: #### L 100.0100, L500.4050, L501.5200 ####[facility] [address] [place], [address] Albumin/Globulin [Mass ratio] 1.2 {ratio} Normal 0.9-2.4 [facility] Comment on above: Performed By: #### L 100.0100, L500.4050, L501.5200 ####[facility] [address] [place], [address] ALK PHOS 72 U/L Normal 40-129 [facility] Comment on above: Performed By: #### L 100.0100, L500.4050, L501.5200 ####[facility] [address] [place], [address] ALT [Catalytic activity/Vol] 14 U/L Normal <=46 [facility] Comment on above: Performed By: #### L 100.0100, L500.4050, L501.5200 ####[facility] [address] [place], [address] AST [Catalytic activity/Vol] 18 U/L Normal <=37 [facility] Comment on above: Performed By: #### L 100.0100, L500.4050, L501.5200 ####[facility] [address] [place], [address] Bilirubin [Mass/Vol] 0.43 mg/dL Normal 0.00-1.30 [facility] Comment on above: Performed By: #### L 100.0100, L500.4050, L501.5200 ####[facility] [address] [place], [address] BUN/CRE 24.4 RATIO High 10-20 [facility] Comment on above: Performed By: #### L 100.0100, L500.4050, L501.5200 ####[facility] [address] [place], [address] Calcium [Mass/Vol] 9.4 mg/dL Normal 7.6-11.0 [facility] Comment on above: Performed By: #### L 100.0100, L500.4050, L501.5200 ####[facility] [address] [place], [address] Chloride [Moles/Vol] 102 mmol/L Normal 98-108 [facility] Comment on above: Performed By: #### L 100.0100, L500.4050, L501.5200 ####[facility] [address] [place], [address] CO2 [Moles/Vol] 24.1 mmol/L Normal 21.0-32.0 [facility] Comment on above: Performed By: #### L 100.0100, L500.4050, L501.5200 ####[facility] [address] [place], [address] Creatinine [Mass/Vol] 0.71 mg/dL Normal 0.70-1.20 [facility] Comment on above: Performed By: #### L 100.0100, L500.4050, L501.5200 ####[facility] [address] [place], [address] ECRCL 111.95 ml/min Normal 50-250 [facility] Comment on above: Performed By: #### L 100.0100, L500.4050, L501.5200 ####[facility] [address] [place], [address] GAP 14 Normal 5-15 [facility] Comment on above: Performed By: #### L 100.0100, L500.4050, L501.5200 ####[facility] [address] [place], [address] GFR/1.73 sq M.predicted among non-blacks MDRD (S/P/Bld) [Vol rate/Area] 102 mL/min/{1.73_m2} Normal >60 [facility] Comment on above: Result Comment: mL/m in/1.73m2 CKD-EPI Creatinine Equation (2020) Performed By: #### L 100.0100, L500.4050, L501.5200 ####[facility] [address] [place], [address] Globulin (S) [Mass/Vol] 3.2 g/dL Normal 2.2-4.2 [facility] Comment on above: Performed By: #### L 100.0100, L500.4050, L501.5200 ####[facility] [address] [place], [address] Glucose [Mass/Vol] 131 mg/dL High 70-99 [facility] Comment on above: Performed By: #### L 100.0100, L500.4050, L501.5200 ####[facility] [address] [place], [address] Potassium [Moles/Vol] 3.9 mmol/L Normal 3.3-5.1 [facility] Comment on above: Performed By: #### L 100.0100, L500.4050, L501.5200 ####[facility] [address] [place], [address] Sodium [Moles/Vol] 140 mmol/L Normal 133-145 [facility] Comment on above: Performed By: #### L 100.0100, L500.4050, L501.5200 ####[facility] [address] [place], [address] T PROT 7.2 g/dL Normal 5.9-8.4 [facility] Comment on above: Performed By: #### L 100.0100, L500.4050, L501.5200 ####[facility] [address] [place], [address] Urea nitrogen [Mass/Vol] 17 mg/dL Normal 4-19 [facility] Comment on above: Performed By: #### L 100.0100, L500.4050, L501.5200 ####[facility] [address] [place], [address] Magnesiumon 01-30-2025 Magnesium [Mass/Vol] 1.8 mg/dL Normal 1.5-2.2 [facility] Comment on above: Performed By: #### L 100.0100, L500.4050, L501.5200 ####[facility] [address] [place], [address] Oncology Visit Reporton 01-05 Oncology Visit Report Normal [facility] Phosphoruson 01-30-2025 Phosphate [Mass/Vol] 3.4 mg/dL Normal 2.7-4.5 [facility] Comment on above: Performed By: #### L 501.2300 ####[facility] [address] [place], [address] Radiation Oncology Visiton 0 01-30-2025 Radiation Oncology Visit Normal [facility] CBC W/Diff, Automatedon - Absolute Lymph 0.19 X10 3/uL Low 0.83-4.51 [facility] Comment on above: Performed By: #### L 100.0100, L500.4050, L501.5200 ####[facility] [address] [place], [address] Absolute Neut 3.4 X10 3/uL Normal 2.0-7.7 [facility] Comment on above: Performed By: #### L 100.0100, L500.4050, L501.5200 ####[facility] [address] [place], [address] Basophils/100 WBC (Bld) 0.8 % Normal 0-1 [facility] Comment on above: Performed By: #### L 100.0100, L500.4050, L501.5200 ####[facility] [address] [place], [address] Eosinophils/100 WBC (Bld) 2.0 % Normal 0-5 [facility] Comment on above: Performed By: #### L 100.0100, L500.4050, L501.5200 ####[facility] [address] [place], [address] Erythrocyte distribution width (RBC) [Ratio] 12.6 % Normal 11.6-14.6 [facility] Comment on above: Performed By: #### L 100.0100, L500.4050, L501.5200 ####[facility] [address] [place], [address] Hematocrit (Bld) [Volume fraction] 41.0 % Normal 40-54 [facility] Comment on above: Performed By: #### L 100.0100, L500.4050, L501.5200 ####[facility] [address] [place], [address] Hemoglobin (Bld) [Mass/Vol] 14.0 g/dL Normal 13.0-16.5 [facility] Comment on above: Performed By: #### L 100.0100, L500.4050, L501.5200 ####[facility] [address] [place], [address] IG% 0.500 Normal 0.0-0.9 [facility] Comment on above: Result Comment: IG% - Immature Granulocytes (promyelocytes, myelocytes andmetamyelocytes) > 1% indicates that a LEFT SHIFT is Present. Performed By: #### L 100.0100, L500.4050, L501.5200 ####[facility] [address] [place], [address] Lymphocytes/100 WBC (Bld) 4.8 % Low 19-41 [facility] Comment on above: Performed By: #### L 100.0100, L500.4050, L501.5200 ####[facility] [address] [place], [address] MCH (RBC) [Entitic mass] 31.7 pg Normal 27.0-32.0 [facility] Comment on above: Performed By: #### L 100.0100, L500.4050, L501.5200 ####[facility] [address] [place], [address] MCHC (RBC) [Mass/Vol] 34.1 g/dL Normal 32-36 [facility] Comment on above: Performed By: #### L 100.0100, L500.4050, L501.5200 ####[facility] [address] [place], [address] MCV (RBC) [Entitic vol] 93.0 fL Normal 80-94 [facility] Comment on above: Performed By: #### L 100.0100, L500.4050, L501.5200 ####[facility] [address] [place], [address] Monocytes/100 WBC (Bld) 6.6 % Normal 0-10 [facility] Comment on above: Performed By: #### L 100.0100, L500.4050, L501.5200 ####[facility] [address] [place], [address] Neutrophils/100 WBC (Bld) 85.3 % High 47-70 [facility] Comment on above: Performed By: #### L 100.0100, L500.4050, L501.5200 ####[facility] [address] [place], [address] Nucleated RBC (Bld) [#/Vol] 0 10*3/uL Normal 0-5 [facility] Comment on above: Performed By: #### L 100.0100, L500.4050, L501.5200 ####[facility] [address] [place], [address] Platelet mean volume (Bld) [Entitic vol] 9.8 fL Normal 6.2-12.0 [facility] Comment on above: Performed By: #### L 100.0100, L500.4050, L501.5200 ####[facility] [address] [place], [address] Platelets (Bld) [#/Vol] 166 10*3/uL Normal 150-450 [facility] Comment on above: Performed By: #### L 100.0100, L500.4050, L501.5200 ####[facility] [address] [place], [address] RBC (Bld) [#/Vol] 4.41 10*6/uL Low 4.6-6.2 [facility] Comment on above: Performed By: #### L 100.0100, L500.4050, L501.5200 ####[facility] [address] [place], [address] RDW SD 43.0 fl Normal 35.1-43.9 [facility] Comment on above: Performed By: #### L 100.0100, L500.4050, L501.5200 ####[facility] [address] [place], [address] WBC (Bld) [#/Vol] 4.0 10*3/uL Low 4.4-11.0 [facility] Comment on above: Performed By: #### L 100.0100, L500.4050, L501.5200 ####[facility] [address] [place], [address] Comprehensive Metabolic Prof christian 01-23-2025 Albumin [Mass/Vol] 4.2 g/dL Normal 3.4-4.8 [facility] Comment on above: Performed By: #### L 100.0100, L500.4050, L501.5200 ####[facility] [address] [place], [address] Albumin/Globulin [Mass ratio] 1.4 {ratio} Normal 0.9-2.4 [facility] Comment on above: Performed By: #### L 100.0100, L500.4050, L501.5200 ####[facility] [address] [place], [address] ALK PHOS 79 U/L Normal 40-129 [facility] Comment on above: Performed By: #### L 100.0100, L500.4050, L501.5200 ####[facility] [address] [place], [address] ALT [Catalytic activity/Vol] 14 U/L Normal <=46 [facility] Comment on above: Performed By: #### L 100.0100, L500.4050, L501.5200 ####[facility] [address] [place], [address] AST [Catalytic activity/Vol] 21 U/L Normal <=37 [facility] Comment on above: Performed By: #### L 100.0100, L500.4050, L501.5200 ####[facility] [address] [place], [address] Bilirubin [Mass/Vol] 0.50 mg/dL Normal 0.00-1.30 [facility] Comment on above: Performed By: #### L 100.0100, L500.4050, L501.5200 ####[facility] [address] [place], [address] BUN/CRE 23.4 RATIO High 10-20 [facility] Comment on above: Performed By: #### L 100.0100, L500.4050, L501.5200 ####[facility] [address] [place], [address] Calcium [Mass/Vol] 9.3 mg/dL Normal 7.6-11.0 [facility] Comment on above: Performed By: #### L 100.0100, L500.4050, L501.5200 ####[facility] [address] [place], [address] Chloride [Moles/Vol] 101 mmol/L Normal 98-108 [facility] Comment on above: Performed By: #### L 100.0100, L500.4050, L501.5200 ####[facility] [address] [place], [address] CO2 [Moles/Vol] 23.1 mmol/L Normal 21.0-32.0 [facility] Comment on above: Performed By: #### L 100.0100, L500.4050, L501.5200 ####[facility] [address] [place], [address] Creatinine [Mass/Vol] 0.79 mg/dL Normal 0.70-1.20 [facility] Comment on above: Performed By: #### L 100.0100, L500.4050, L501.5200 ####[facility] [address] [place], [address] ECRCL 100.61 ml/min Normal 50-250 [facility] Comment on above: Performed By: #### L 100.0100, L500.4050, L501.5200 ####[facility] [address] [place], [address] GAP 14 Normal 5-15 [facility] Comment on above: Performed By: #### L 100.0100, L500.4050, L501.5200 ####[facility] [address] [place], [address] GFR/1.73 sq M.predicted among non-blacks MDRD (S/P/Bld) [Vol rate/Area] 99 mL/min/{1.73_m2} Normal >60 [facility] Comment on above: Result Comment: mL/m in/1.73m2 CKD-EPI Creatinine Equation (2020) Performed By: #### L 100.0100, L500.4050, L501.5200 ####[facility] [address] [place], [address] Globulin (S) [Mass/Vol] 3.1 g/dL Normal 2.2-4.2 [facility] Comment on above: Performed By: #### L 100.0100, L500.4050, L501.5200 ####[facility] [address] [place], [address] Glucose [Mass/Vol] 119 mg/dL High 70-99 [facility] Comment on above: Performed By: #### L 100.0100, L500.4050, L501.5200 ####[facility] [address] [place], [address] Potassium [Moles/Vol] 4.1 mmol/L Normal 3.3-5.1 [facility] Comment on above: Performed By: #### L 100.0100, L500.4050, L501.5200 ####[facility] [address] [place], [address] Sodium [Moles/Vol] 139 mmol/L Normal 133-145 [facility] Comment on above: Performed By: #### L 100.0100, L500.4050, L501.5200 ####[facility] [address] [place], [address] T PROT 7.4 g/dL Normal 5.9-8.4 [facility] Comment on above: Performed By: #### L 100.0100, L500.4050, L501.5200 ####[facility] [address] [place], [address] Urea nitrogen [Mass/Vol] 18 mg/dL Normal 4-19 [facility] Comment on above: Performed By: #### L 100.0100, L500.4050, L501.5200 ####[facility] [address] [place], [address] Gastroenterology Visit Repor ton 01-23-2025 Gastroenterology Visit Report Normal [facility] Magnesiumon 01-23-2025 Magnesium [Mass/Vol] 2.1 mg/dL Normal 1.5-2.2 [facility] Comment on above: Performed By: #### L 100.0100, L500.4050, L501.5200 ####[facility] [address] [place], [address] Oncology Visit Reporton 01-05 Oncology Visit Report Normal [facility] Phosphoruson 01-23-2025 Phosphate [Mass/Vol] 3.3 mg/dL Normal 2.7-4.5 [facility] Comment on above: Performed By: #### L 501.2300 ####[facility] [address] [place], [address] Radiation Oncology Visiton 0 01-23-2025 Radiation Oncology Visit Normal [facility] Office Visit Reporton 2024 Office Visit Report Normal [facility] CBC W/Diff, Automatedon 01-04 Absolute Lymph 0.34 X10 3/uL Low 0.83-4.51 [facility] Comment on above: Performed By: #### L 500.4050, L501.5200, L100.0100 ####[facility] [address] [place], [address] Absolute Neut 3.4 X10 3/uL Normal 2.0-7.7 [facility] Comment on above: Performed By: #### L 500.4050, L501.5200, L100.0100 ####[facility] [address] [place], [address] Basophils/100 WBC (Bld) 0.5 % Normal 0-1 [facility] Comment on above: Performed By: #### L 500.4050, L501.5200, L100.0100 ####[facility] [address] [place], [address] Eosinophils/100 WBC (Bld) 2.1 % Normal 0-5 [facility] Comment on above: Performed By: #### L 500.4050, L501.5200, L100.0100 ####[facility] [address] [place], [address] Erythrocyte distribution width (RBC) [Ratio] 12.9 % Normal 11.6-14.6 [facility] Comment on above: Performed By: #### L 500.4050, L501.5200, L100.0100 ####[facility] [address] [place], [address] Hematocrit (Bld) [Volume fraction] 39.6 % Low 40-54 [facility] Comment on above: Performed By: #### L 500.4050, L501.5200, L100.0100 ####[facility] [address] [place], [address] Hemoglobin (Bld) [Mass/Vol] 13.5 g/dL Normal 13.0-16.5 [facility] Comment on above: Performed By: #### L 500.4050, L501.5200, L100.0100 ####[facility] [address] [place], [address] IG% 0.500 Normal 0.0-0.9 [facility] Comment on above: Result Comment: IG% - Immature Granulocytes (promyelocytes, myelocytes andmetamyelocytes) > 1% indicates that a LEFT SHIFT is Present. Performed By: #### L 500.4050, L501.5200, L100.0100 ####[facility] [address] [place], [address] Lymphocytes/100 WBC (Bld) 8.1 % Low 19-41 [facility] Comment on above: Performed By: #### L 500.4050, L501.5200, L100.0100 ####[facility] [address] [place], [address] MCH (RBC) [Entitic mass] 31.8 pg Normal 27.0-32.0 [facility] Comment on above: Performed By: #### L 500.4050, L501.5200, L100.0100 ####[facility] [address] [place], [address] MCHC (RBC) [Mass/Vol] 34.1 g/dL Normal 32-36 [facility] Comment on above: Performed By: #### L 500.4050, L501.5200, L100.0100 ####[facility] [address] [place], [address] MCV (RBC) [Entitic vol] 93.2 fL Normal 80-94 [facility] Comment on above: Performed By: #### L 500.4050, L501.5200, L100.0100 ####[facility] [address] [place], [address] Monocytes/100 WBC (Bld) 9.5 % Normal 0-10 [facility] Comment on above: Performed By: #### L 500.4050, L501.5200, L100.0100 ####[facility] [address] [place], [address] Neutrophils/100 WBC (Bld) 79.3 % High 47-70 [facility] Comment on above: Performed By: #### L 500.4050, L501.5200, L100.0100 ####[facility] [address] [place], [address] Nucleated RBC (Bld) [#/Vol] 0 10*3/uL Normal 0-5 [facility] Comment on above: Performed By: #### L 500.4050, L501.5200, L100.0100 ####[facility] [address] [place], [address] Platelet mean volume (Bld) [Entitic vol] 8.9 fL Normal 6.2-12.0 [facility] Comment on above: Performed By: #### L 500.4050, L501.5200, L100.0100 ####[facility] [address] [place], [address] Platelets (Bld) [#/Vol] 205 10*3/uL Normal 150-450 [facility] Comment on above: Performed By: #### L 500.4050, L501.5200, L100.0100 ####[facility] [address] [place], [address] RBC (Bld) [#/Vol] 4.25 10*6/uL Low 4.6-6.2 [facility] Comment on above: Performed By: #### L 500.4050, L501.5200, L100.0100 ####[facility] [address] [place], [address] RDW SD 43.8 fl Normal 35.1-43.9 [facility] Comment on above: Performed By: #### L 500.4050, L501.5200, L100.0100 ####[facility] [address] [place], [address] WBC (Bld) [#/Vol] 4.2 10*3/uL Low 4.4-11.0 [facility] Comment on above: Performed By: #### L 500.4050, L501.5200, L100.0100 ####[facility] [address] [place], [address] Comprehensive Metabolic Prof ilon 01-16-2025 Albumin [Mass/Vol] 3.9 g/dL Normal 3.4-4.8 [facility] Comment on above: Performed By: #### L 500.4050, L501.5200, L100.0100 ####[facility] [address] [place], [address] Albumin/Globulin [Mass ratio] 1.2 {ratio} Normal 0.9-2.4 [facility] Comment on above: Performed By: #### L 500.4050, L501.5200, L100.0100 ####[facility] [address] [place], [address] ALK PHOS 75 U/L Normal 40-129 [facility] Comment on above: Performed By: #### L 500.4050, L501.5200, L100.0100 ####[facility] [address] [place], [address] ALT [Catalytic activity/Vol] 16 U/L Normal <=46 [facility] Comment on above: Performed By: #### L 500.4050, L501.5200, L100.0100 ####[facility] [address] [place], [address] AST [Catalytic activity/Vol] 19 U/L Normal <=37 [facility] Comment on above: Performed By: #### L 500.4050, L501.5200, L100.0100 ####[facility] [address] [place], [address] Bilirubin [Mass/Vol] 0.38 mg/dL Normal 0.00-1.30 [facility] Comment on above: Performed By: #### L 500.4050, L501.5200, L100.0100 ####[facility] [address] [place], [address] BUN/CRE 15.3 RATIO Normal 10-20 [facility] Comment on above: Performed By: #### L 500.4050, L501.5200, L100.0100 ####[facility] [address] [place], [address] Calcium [Mass/Vol] 9.4 mg/dL Normal 7.6-11.0 [facility] Comment on above: Performed By: #### L 500.4050, L501.5200, L100.0100 ####[facility] [address] [place], [address] Chloride [Moles/Vol] 104 mmol/L Normal 98-108 [facility] Comment on above: Performed By: #### L 500.4050, L501.5200, L100.0100 ####[facility] [address] [place], [address] CO2 [Moles/Vol] 23.3 mmol/L Normal 21.0-32.0 [facility] Comment on above: Performed By: #### L 500.4050, L501.5200, L100.0100 ####[facility] [address] [place], [address] Creatinine [Mass/Vol] 0.81 mg/dL Normal 0.70-1.20 [facility] Comment on above: Performed By: #### L 500.4050, L501.5200, L100.0100 ####[facility] [address] [place], [address] ECRCL 98.13 ml/min Normal 50-250 [facility] Comment on above: Performed By: #### L 500.4050, L501.5200, L100.0100 ####[facility] [address] [place], [address] GAP 12 Normal 5-15 [facility] Comment on above: Performed By: #### L 500.4050, L501.5200, L100.0100 ####[facility] [address] [place], [address] GFR/1.73 sq M.predicted among non-blacks MDRD (S/P/Bld) [Vol rate/Area] 98 mL/min/{1.73_m2} Normal >60 [facility] Comment on above: Result Comment: mL/m in/1.73m2 CKD-EPI Creatinine Equation (2020) Performed By: #### L 500.4050, L501.5200, L100.0100 ####[facility] [address] [place], [address] Globulin (S) [Mass/Vol] 3.3 g/dL Normal 2.2-4.2 [facility] Comment on above: Performed By: #### L 500.4050, L501.5200, L100.0100 ####[facility] [address] [place], [address] Glucose [Mass/Vol] 130 mg/dL High 70-99 [facility] Comment on above: Performed By: #### L 500.4050, L501.5200, L100.0100 ####[facility] [address] [place], [address] Potassium [Moles/Vol] 3.9 mmol/L Normal 3.3-5.1 [facility] Comment on above: Performed By: #### L 500.4050, L501.5200, L100.0100 ####[facility] [address] [place], [address] Sodium [Moles/Vol] 139 mmol/L Normal 133-145 [facility] Comment on above: Performed By: #### L 500.4050, L501.5200, L100.0100 ####[facility] [address] [place], [address] T PROT 7.1 g/dL Normal 5.9-8.4 [facility] Comment on above: Performed By: #### L 500.4050, L501.5200, L100.0100 ####[facility] [address] [place], [address] Urea nitrogen [Mass/Vol] 12 mg/dL Normal 4-19 [facility] Comment on above: Performed By: #### L 500.4050, L501.5200, L100.0100 ####[facility] [address] [place], [address] Magnesiumon 01-16-2025 Magnesium [Mass/Vol] 2.1 mg/dL Normal 1.5-2.2 [facility] Comment on above: Performed By: #### L 500.4050, L501.5200, L100.0100 ####[facility] [address] [place], [address] Oncology Visit Reporton 01-04 Oncology Visit Report Normal [facility] Radiation Oncology Visiton 0 01-16-2025 Radiation Oncology Visit Normal [facility] Chest 1 View (Portable)on Chest 1 View (Portable) [facility] Discharge Instructionon Discharge Instruction Normal [facility] MR/POSTOP.ANEon 01-10-2025 MR/POSTOP.ANE [facility] MR/[id number] 01-10-2025 MR/POSTOPAN2 [facility] Operative Reporton Operative Report Normal [facility] Oncology Visit Reporton 08-0 5-2025 Oncology Visit Report Normal [facility] Comprehensive Metabolic Prof ilon 01-07-2025 Albumin [Mass/Vol] 4.1 g/dL Normal 3.4-4.8 [facility] Comment on above: Performed By: #### L 500.4050 ####[facility] [address] [place], [address] Albumin/Globulin [Mass ratio] 1.2 {ratio} Normal 0.9-2.4 [facility] Comment on above: Performed By: #### L 500.4050 ####[facility] [address] [place], [address] ALK PHOS 83 U/L Normal 40-129 [facility] Comment on above: Performed By: #### L 500.4050 ####[facility] [address] [place], [address] ALT [Catalytic activity/Vol] 10 U/L Normal <=46 [facility] Comment on above: Performed By: #### L 500.4050 ####[facility] [address] [place], [address] AST [Catalytic activity/Vol] 19 U/L Normal <=37 [facility] Comment on above: Performed By: #### L 500.4050 ####[facility] [address] [place], [address] Bilirubin [Mass/Vol] 0.30 mg/dL Normal 0.00-1.30 [facility] Comment on above: Performed By: #### L 500.4050 ####[facility] [address] [place], [address] BUN/CRE 14.6 RATIO Normal 10-20 [facility] Comment on above: Performed By: #### L 500.4050 ####[facility] [address] [place], [address] Calcium [Mass/Vol] 9.3 mg/dL Normal 7.6-11.0 [facility] Comment on above: Performed By: #### L 500.4050 ####[facility] [address] [place], [address] Chloride [Moles/Vol] 101 mmol/L Normal 98-108 [facility] Comment on above: Performed By: #### L 500.4050 ####[facility] [address] [place], [address] CO2 [Moles/Vol] 25.7 mmol/L Normal 21.0-32.0 [facility] Comment on above: Performed By: #### L 500.4050 ####[facility] [address] [place], [address] Creatinine [Mass/Vol] 0.79 mg/dL Normal 0.70-1.20 [facility] Comment on above: Performed By: #### L 500.4050 ####[facility] [address] [place], [address] GAP 12 Normal 5-15 [facility] Comment on above: Performed By: #### L 500.4050 ####[facility] [address] [place], [address] GFR/1.73 sq M.predicted among non-blacks MDRD (S/P/Bld) [Vol rate/Area] 99 mL/min/{1.73_m2} Normal >60 [facility] Comment on above: Result Comment: mL/m in/1.73m2 CKD-EPI Creatinine Equation (2020) Performed By: #### L 500.4050 ####[facility] [address] [place], [address] Globulin (S) [Mass/Vol] 3.3 g/dL Normal 2.2-4.2 [facility] Comment on above: Performed By: #### L 500.4050 ####[facility] [address] [place], [address] Glucose [Mass/Vol] 97 mg/dL Normal 70-99 [facility] Comment on above: Performed By: #### L 500.4050 ####[facility] [address] [place], [address] Potassium [Moles/Vol] 4.0 mmol/L Normal 3.3-5.1 [facility] Comment on above: Performed By: #### L 500.4050 ####[facility] [address] [place], [address] Sodium [Moles/Vol] 138 mmol/L Normal 133-145 [facility] Comment on above: Performed By: #### L 500.4050 ####[facility] [address] [place], [address] T PROT 7.4 g/dL Normal 5.9-8.4 [facility] Comment on above: Performed By: #### L 500.4050 ####[facility] [address] [place], [address] Urea nitrogen [Mass/Vol] 12 mg/dL Normal 4-19 [facility] Comment on above: Performed By: #### L 500.4050 ####[facility] [address] [place], [address] Oncology Visit Reporton Oncology Visit Report Normal [facility] MR/PAT.ANEon 01-04-2025 MR/PAT.ANE Normal [facility] Surgery Visit Reporton 01-03 Surgery Visit Report Normal [facility] EGD Reporton 01-01-2025 EGD Report Normal [facility] MR/OP.PROVATon 01-01-2025 MR/OP.PROVAT Normal [facility] MR/POSTOP.ANEon 01-01-2025 MR/POSTOP.ANE Normal [facility] MR/PAT.ANEon 07-25-2025 MR/PAT.ANE Normal [facility] Oncology Visit Reporton 07-2 Oncology Visit Report Normal [facility] Radiation Oncology Visiton 0 12-24-2024 Radiation Oncology Visit Normal [facility] Gastroenterology Visit Repor ton 12-19-2024 Gastroenterology Visit Report Normal [facility] MR/PAT.ANEon 12-19-2024 MR/PAT.ANE Normal [facility] PET/CT INITIAL STAGING TUMOR SKULL [id number] 12-14-2024 PET/CT INITIAL STAGING TUMOR SKULL [id number] ORIGINAL EXAMINATION: PET TUMOR IMAGING SKULL-THIGH12/12/2024 10:28 am TECHNIQUE: Intravenous injection of 12 mCi Fluorine-18 fluorodeoxyglucose (FDG) was administered, followed by acquisition of positron emission tomographic images from the skull base to mid thigh, with concurrent low-dose CT for attenuation correction and anatomic localization utilizing a combined PET/CT scanner. PET images were fused with low-dose CT at the workstation. Dose dqfpydruk-eh-cxaj time:53 min Serum glucose level: 102 mg/dl [...] 12/14/2024 12:34:14 PM Ordering Provider: ANNA VEGA [facility] MAIN Office Visiton 12-11-2024 Follow-up visit [id number] Joe Hawkins 1960 M Date Provider Department Center 12/11/2024 [id number] BARAHONA [facility] CT None Family History Problem Relation Age of Onset Hyperlipidemia Mother Coronary artery disease Father Family Status - Relation Status Age at Mother Father Level of Service:24943 [place] OFFICE/OUTPATIENT NEW HIGH MDM 60 MINUTES Reason for Visit and Comments: New Patient [542] [facility] Progress Noteon 12-11-[address] [facility] CARDIOVASCULAR [facility] THORACIC SURGERY [address] [facility] [address] Dept: [phone] Dept Loc: [phone] Visit type: New Reason for Visit: Dysphagia, [...] scheduled for a PET scan tomorrow in [place] so my suspicion is that this did [...] PET scan appointment tomorrow. He lives in [place] and [facility] is much closer to him than [place], so we will plan for referral to medical and radiation oncology in [place]. After completion of PET and obtaining his [...] respiratory distress. (more content not included)... Normal [facility] Emergency Department Summary on 12-05-2024 Emergency Department Summary Normal [facility] .Auto Diffon 12-03-2024 Basophil, Absolute 0.0 10 3/mcL Normal 0.0-0.3 [facility] Comment on above: Performed By: #### M G, TROPHS, LIP, MDW, ADIFF, GFR, CBC, CMP, ANEU ####[place] [address] [place], [place] [address] Basophils/100 WBC (Bld) 0.2 % Normal 0.0-2.5 [facility] Comment on above: Performed By: #### M G, TROPHS, LIP, MDW, ADIFF, GFR, CBC, CMP, ANEU ####[facility] [place], [place] [address] Eosinophil, Absolute 0.1 10 3/mcL Normal 0.0-0.7 [facility] Comment on above: Performed By: #### M G, TROPHS, LIP, MDW, ADIFF, GFR, CBC, CMP, ANEU ####[facility] [place], [place] [address] Eosinophils/100 WBC (Bld) 1.2 % Normal 0.0-6.0 [facility] Comment on above: Performed By: #### M G, TROPHS, LIP, MDW, ADIFF, GFR, CBC, CMP, ANEU ####[place] [address] [place], [place] [address] Lymphocyte, Absolute 1.2 10 3/mcL Normal 0.9-4.3 [facility] Comment on above: Performed By: #### M G, TROPHS, LIP, MDW, ADIFF, GFR, CBC, CMP, ANEU ####[place] [address] [place], [place] [address] Lymphocytes/100 WBC (Bld) 10.0 % Low 20.0-40.0 [facility] Comment on above: Performed By: #### M G, TROPHS, LIP, MDW, ADIFF, GFR, CBC, CMP, ANEU ####[place] [address] [place], [place] [address] Monocyte, Absolute 0.8 10 3/mcL Normal 0.1-1.4 [facility] Comment on above: Performed By: #### M G, TROPHS, LIP, MDW, ADIFF, GFR, CBC, CMP, ANEU ####[place] [address] [place], [place] [address] Monocytes/100 WBC (Bld) 7.3 % Normal 2.0-13.0 [facility] Comment on above: Performed By: #### M G, TROPHS, LIP, MDW, ADIFF, GFR, CBC, CMP, ANEU ####[place] [address] [place], [place] [address] Neutrophils/100 WBC (Bld) 81.1 % High 50.0-75.0 [facility] Comment on above: Performed By: #### M G, TROPHS, LIP, MDW, ADIFF, GFR, CBC, CMP, ANEU ####[place] [address] [place], [place] [address] .GFRon 12-03-2024 Estimated Glomerular Filtration Rate 92 ml/min/1.73sqm Normal [facility] Comment on above: Result Comment: Stages of [...] LIP, MDW, ADIFF, GFR, CBC, CMP, ANEU ####[facility] [address] [place], [place] [address] .MDWon 12-03-2024 Monocyte Distribution Width Not performed Normal 0.00-20.00 [facility] Comment on above: Result Comment: TOM testing unable to be performed on [id number] instrumentation. Performed By: #### M G, TROPHS, LIP, MDW, ADIFF, GFR, CBC, CMP, ANEU ####[place] [address] [place], [place] [address] .NEUABSon 12-03-2024 Neutrophil, Absolute 9.7 10 3/mcL High 2.3-8.1 [facility] Comment on above: Performed By: #### M G, TROPHS, TERELL, MDW, ADIFF, GFR, CBC, CMP, ANEU ####[place] [address] [place], [place] [address] CBCon 12-03-2024 Erythrocyte distribution width (RBC) [Ratio] 12.5 % Normal 11.5-15.5 [facility] Comment on above: Performed By: #### M G, TROPHS, LIP, MDW, ADIFF, GFR, CBC, CMP, ANEU ####[place] [address] [place] [id number] Hematocrit (Bld) [Volume fraction] 45.3 % Normal 40.0-52.0 [facility] Comment on above: Performed By: #### M G, TROPHS, LIP, MDW, ADIFF, GFR, CBC, CMP, ANEU ####[place] [address] [place] [id number] Hgb 15.9 G/dL Normal 13.0-17.5 [facility] Comment on above: Performed By: #### M Harsha, TROPHS, LIP, MDW, ADIFF, GFR, CBC, CMP, ANEU ####[place] [address] [place], [place] [address] MCH (RBC) [Entitic mass] 32.1 pg Normal 27.0-33.0 [facility] Comment on above: Performed By: #### M G, TROPHS, LIP, MDW, ADIFF, GFR, CBC, CMP, ANEU ####[place] [address] [place], [place] [address] MCHC 35.3 G/dL Normal 32.0-36.0 [facility] Comment on above: Performed By: #### M Harsha, TROPHS, LIP, MDW, ADIFF, GFR, CBC, CMP, ANEU ####[address] [place], [place] [address] MCV (RBC) [Entitic vol] 91.0 fL Normal 81.0-100.0 [facility] Comment on above: Performed By: #### M Harsha, TROPHS, LIP, MDW, ADIFF, GFR, CBC, CMP, ANEU ####[address] [address] Platelet 198 10 3/mcL Normal 150-450 [facility] Comment on above: Performed By: #### M Harsha, TROPHS, LIP, MDW, ADIFF, GFR, CBC, CMP, ANEU ####[address] [address] Platelet mean volume (Bld) [Entitic vol] 7.1 fL Normal 6.4-10.5 [facility] Comment on above: Performed By: #### M Harsha, TROPHS, LIP, MDW, ADIFF, GFR, CBC, CMP, ANEU ####[place] [address] [place], [place] [address] RBC 4.98 10 6/mcL Normal 4.50-6.00 [facility] Comment on above: Performed By: #### M G, TROPHS, LIP, MDW, ADIFF, GFR, CBC, CMP, ANEU ####[place] [address] [place], [place] [address] WBC 12.0 10 3/mcL High 4.5-10.8 [facility] Comment on above: Performed By: #### M G, TROPHS, LIP, MDW, ADIFF, GFR, CBC, CMP, ANEU ####[place] [address] [place], [place] [address] CMPon 12-03-2024 Albumin Level 3.6 G/dL Normal 3.4-4.8 [facility] Comment on above: Performed By: #### M G, TROPHS, LIP, MDW, ADIFF, GFR, CBC, CMP, ANEU ####[facility] [place], [place] [address] Albumin/Globulin [Mass ratio] 0.9 {ratio} Low 1.1-2.5 [facility] Comment on above: Performed By: #### M G, TROPHS, LIP, MDW, ADIFF, GFR, CBC, CMP, ANEU ####[facility] [place], [place] [address] ALP [Catalytic activity/Vol] 85 U/L Normal 40-135 [facility] Comment on above: Performed By: #### M G, TROPHS, LIP, MDW, ADIFF, GFR, CBC, CMP, ANEU ####[facility] [place], [place] [address] ALT [Catalytic activity/Vol] 22 U/L Normal 16-63 [facility] Comment on above: Performed By: #### M G, TROPHS, LIP, MDW, ADIFF, GFR, CBC, CMP, ANEU ####[place] [address] [place], [place] [address] AST [Catalytic activity/Vol] 9 U/L Low 10-40 [facility] Comment on above: Performed By: #### M G, TROPHS, LIP, MDW, ADIFF, GFR, CBC, CMP, ANEU ####[facility] [place], [place] [address] Bili Total 0.6 mg/dL Normal 0.2-1.0 [facility] Comment on above: Result Comment: Use of this assay is not recommended for patients undergoing treatment with eltrombopag due to the potential for falsely elevated results. Performed By: #### M G, TROPHS, LIP, MDW, ADIFF, GFR, CBC, CMP, ANEU ####[facility] [place], [place] [address] BUN/Creatinine Ratio 24 ratio Normal 7-27 [facility] Comment on above: Performed By: #### M G, TROPHS, LIP, MDW, ADIFF, GFR, CBC, CMP, ANEU ####[facility] [place], [place] [address] Calcium [Mass/Vol] 9.4 mg/dL Normal 8.4-10.2 [facility] Comment on above: Performed By: #### M G, TROPHS, LIP, MDW, ADIFF, GFR, CBC, CMP, ANEU ####[facility] [place], [place] [address] Chloride [Moles/Vol] 104 mmol/L Normal 98-107 [facility] Comment on above: Performed By: #### M G, TROPHS, LIP, MDW, ADIFF, GFR, CBC, CMP, ANEU ####[facility] [place], [place] [address] CO2 [Moles/Vol] 32 mmol/L High 23-31 [facility] Comment on above: Performed By: #### M G, TROPHS, LIP, MDW, ADIFF, GFR, CBC, CMP, ANEU ####[facility] [place], [place] [address] Creatinine [Mass/Vol] 0.93 mg/dL Normal 0.67-1.17 [facility] Comment on above: Performed By: #### M G, TROPHS, LIP, MDW, ADIFF, GFR, CBC, CMP, ANEU ####[facility] [place], [place] [address] Electrolyte Balance 4.0 mEq/L Normal 4.0-15.0 [facility] Comment on above: Performed By: #### M G, TROPHS, LIP, MDW, ADIFF, GFR, CBC, CMP, ANEU ####[facility] [place], [place] [address] Globulin 3.9 G/dL Normal 2.7-4.4 [facility] Comment on above: Performed By: #### M G, TROPHS, LIP, MDW, ADIFF, GFR, CBC, CMP, ANEU ####[place] [address] [place], [place] [address] Glucose [Mass/Vol] 145 mg/dL High 80-115 [facility] Comment on above: Performed By: #### M G, TROPHS, LIP, MDW, ADIFF, GFR, CBC, CMP, ANEU ####[place] [address] [place], [place] [address] Potassium [Moles/Vol] 3.3 mmol/L Low 3.5-5.1 [facility] Comment on above: Performed By: #### M G, TROPHS, LIP, MDW, ADIFF, GFR, CBC, CMP, ANEU ####[place] [address] [place], [place] [address] Sodium [Moles/Vol] 140 mmol/L Normal 136-145 [facility] Comment on above: Performed By: #### M G, TROPHS, LIP, MDW, ADIFF, GFR, CBC, CMP, ANEU ####[facility] [place], [place] [address] Total Protein 7.5 G/dL Normal 6.4-8.2 [facility] Comment on above: Performed By: #### M G, TROPHS, LIP, MDW, ADIFF, GFR, CBC, CMP, ANEU ####[facility] [place], [place] [address] Urea nitrogen [Mass/Vol] 22 mg/dL High 7-18 [facility] Comment on above: Performed By: #### M G, TROPHS, LIP, MDW, ADIFF, GFR, CBC, CMP, ANEU ####[place] [address] [place], [place] [address] CT ABD/PELVIS W/ IV CONTRAST ONLYon 12-03-2024 [...] fluid collection is detected in the pelvis. Peritoneum/Retroperitone um: Abdominal aorta is nonaneurysmal. There is no [...] Date: 12/03/2024 3:27:01 AM Ordering Provider: AUDRA Carias [facility]ORATORYOrdered By: SYSTEM SYSTEM on 12-03-2024 Troponin I.cardiac DL <= 0.01 ng/mL [Mass/Vol] 8 ng/L Normal 0 - 76 ng/L AO ADM SS Comment on above: Interpretive Data: H igh Sensitive Troponin I Reference Ranges: Female: 0-51 ng/L Male: 0-76 ng/L Testing performed on Visual Unity using a homogeneous sandwich chemiluminescent immunoassay based on [employer] technology. Albumin BCP dye [Mass/Vol] 3.6 G/dL [...] Bilirubin [Mass/Vol] 0.6 mg/dL Normal 0.2 - 1 .0 mg/dL [...] 7 mmol/L AO ADM SS CO2 [Moles/Vol] 32 [...] Magnesium [Mass/Vol] 1.8 mg/dL Normal 1.8 - 2 .4 mg/dL AO ADM SS MCH (RBC) [Entitic [...] ng/L Male: 0-76 ng/L Testing performed on [employer] using a homogeneous sandwich chemiluminescent immunoassay based on [employer] technology. Urea nitrogen [Mass/Vol] 22 mg/dL High [...] Hematology S Comment on above: Result Comment: MDW testing unable to be performed on [id number] instrumentation. LIPon 12-03-2024 Lipase Level 27 U/L Normal 16-77 [facility] Comment on above: Performed By: #### M DRU Mcleod LIP, TOM, ADIFF, GFR, CBC, CMP, ANEU ####[place] [address] [place], [place] [address] MGon 12-03-2024 Magnesium [Mass/Vol] 1.8 mg/dL Normal 1.8-2.4 [facility] Comment on above: Performed By: #### M Harsha, DRU, TERELL, TOM, ADIFF, GFR, CBC, CMP, ANEU ####[place] [address] [place], [place] [address] TROPHSon 12-03-2024 High Sensitivity Troponin I 8 ng/L Normal 0-76 [facility] Comment on above: Result Comment: High Sensitive Troponin I Reference Ranges: Female: 0-51 ng/L Male: 0-76 ng/L Testing performed on Dimension EXL using a homogeneous sandwich chemiluminescent immunoassay based on [employer] technology. Performed By: #### T [facility] #### [facility] [address] [place], [place] [address] High Sensitivity Troponin I 10 ng/L Normal 0-76 [facility] Comment on above: Result Comment: High Sensitive Troponin I Reference Ranges: Female: 0-51 ng/L Male: 0-76 ng/L Testing performed on Dimension EXL using a homogeneous sandwich chemiluminescent immunoassay based on [employer] technology. Performed By: #### M DRU Mcleod LIP, MDW, ADIFF, GFR, CBC, CMP, ANEU ####[place] [address] [place], [place] [address] XR CHEST 1 VIEWon 12-03-2024 XR CHEST [...] 12/03/2024 3:20:52 AM Ordering Provider: AUDRA DIAZ Normal [facility] 12 Lead EKGon 12-01-2024 12 Lead EKG Normal [facility] Basic Metabolic Profile (BMP )on 12-01-2024 BUN/CRE 26.1 RATIO High 10-20 [facility] Comment on above: Order Comment: REDRA W. PREVIOUS SPECIMEN REJECTED DUE TOHEMOLYSIS. 12/01/24 0840 Anahi Tan. Performed By: #### L 500.2500, L501.4021 ####[facility] [address] [place], [address] Calcium [Mass/Vol] 9.4 mg/dL Normal 7.6-11.0 [facility] Comment on above: Order Comment: REDRA W. PREVIOUS SPECIMEN REJECTED DUE TOHEMOLYSIS. 12/01/24 0840 Anahi Tan. Performed By: #### L 500.2500, L501.4021 ####[facility] [address] [place], [address] Chloride [Moles/Vol] 105 mmol/L Normal 98-108 [facility] Comment on above: Order Comment: REDRA W. PREVIOUS SPECIMEN REJECTED DUE TOHEMOLYSIS. 12/01/24 0840 Anahi Tan. Performed By: #### L 500.2500, L501.4021 ####[facility] [address] [place], [address] CO2 [Moles/Vol] 23.3 mmol/L Normal 21.0-32.0 [facility] Comment on above: Order Comment: REDRA W. PREVIOUS SPECIMEN REJECTED DUE TOHEMOLYSIS. 12/01/2440 Anahi Tan. Performed By: #### L 500.2500, L501.4021 ####[facility] [address] [place], [address] Creatinine [Mass/Vol] 0.97 mg/dL Normal 0.70-1.20 [facility] Comment on above: Order Comment: REDRA W. PREVIOUS SPECIMEN REJECTED DUE TOHEMOLYSIS. 12/01/2440 Anahi Tan. Performed By: #### L 500.2500, L501.4021 ####[facility] [address] [place], [address] ECRCL 90.53 ml/min Normal 50-250 [facility] Comment on above: Order Comment: REDRA W. PREVIOUS SPECIMEN REJECTED DUE TOHEMOLYSIS. 12/01/2440 Anahi Tan. Performed By: #### L 500.2500, L501.4021 ####[facility] [address] [place], [address] GAP 13 Normal 5-15 [facility] Comment on above: Order Comment: REDRA W. PREVIOUS SPECIMEN REJECTED DUE TOHEMOLYSIS. 12/01/2440 Anahi Tan. Performed By: #### L 500.2500, L501.4021 ####[facility] [address] [place], [address] GFR/1.73 sq M.predicted among non-blacks MDRD (S/P/Bld) [Vol rate/Area] 87 mL/min/{1.73_m2} Normal >60 [facility] Comment on above: Order Comment: REDRA W. PREVIOUS SPECIMEN REJECTED DUE TOHEMOLYSIS. 12/01/24 0840 Anahi Tan. Result Comment: mL/m in/1.73m2 CKD-EPI Creatinine Equation (2020) Performed By: #### L 500.2500, L501.4021 ####[facility] [address] [place], [address] Glucose [Mass/Vol] 121 mg/dL High 70-99 [facility] Comment on above: Order Comment: REDRA W. PREVIOUS SPECIMEN REJECTED DUE TOHEMOLYSIS. 12/01/24 0840 Anahi Tan. Performed By: #### L 500.2500, L501.4021 ####[facility] [address] [place], [address] Potassium [Moles/Vol] 3.7 mmol/L Normal 3.3-5.1 [facility] Comment on above: Order Comment: REDRA W. PREVIOUS SPECIMEN REJECTED DUE TOHEMOLYSIS. 12/01/2440 Anahi Tan. Performed By: #### L 500.2500, L501.4021 ####[facility] [address] [place], [address] Sodium [Moles/Vol] 141 mmol/L Normal 133-145 [facility] Comment on above: Order Comment: REDRA W. PREVIOUS SPECIMEN REJECTED DUE TOHEMOLYSIS. 12/01/2440 Anahi Tan. Performed By: #### L 500.2500, L501.4021 ####[facility] [address] [place], [address] Urea nitrogen [Mass/Vol] 25 mg/dL High - [facility] Comment on above: Order Comment: REDRA W. PREVIOUS SPECIMEN REJECTED DUE TOHEMOLYSIS. 12/01/2440 Anahi Tan. Performed By: #### L 500.2500, L501.4021 ####[facility] [address] [place], [address] BUN Normal - [facility] Comment on above: Result Comment: This specimen has been REJECTED due to Laboratory criteria:Hemolyzed.PEPPER has been notified of need of recollection.12/01/24 0839 Anahi Tan Performed By: #### L 100.0100, L500.2500, L300.3900, L300.8000, L300.4310 ####[facility] [address] [place], [place], [phone] BUN/CRE Normal 10-20 [facility] Comment on above: Result Comment: This specimen has been REJECTED due to Laboratory criteria:Hemolyzed.KRISTIN has been notified of need of recollection.12/01/248[address] Anahi Tan Performed By: #### L 100.0100, L500.2500, L300.3900, L300.8000, L300.4310 ####[facility] [address] [place], [place], [phone] Calcium Normal 7.6-11.0 [facility] Comment on above: Result Comment: This specimen has been REJECTED due to Laboratory criteria:Hemolyzed.KRISTIN has been notified of need of recollection.12/01/248[address] Anahi Tan Performed By: #### L 100.0100, L500.2500, L300.3900, L300.8000, L300.4310 ####[facility] [address] [place], [place], [phone]) CL Normal 98-108 [facility] Comment on above: Result Comment: This specimen has been REJECTED due to Laboratory criteria:Hemolyzed.KRISTIN has been notified of need of recollection.12/01/248[address] Anahi Atn Performed By: #### L 100.0100, L500.2500, L300.3900, L300.8000, L300.4310 ####[facility] [address] [place], [place], [phone]([phone]) CO2 Normal 21.0-32.0 [facility] Comment on above: Result Comment: This specimen has been REJECTED due to Laboratory criteria:Hemolyzed.KRISTIN has been notified of need of recollection.12/01/24838 Anahi Tan Performed By: #### L 100.0100, L500.2500, L300.3900, L300.8000, L300.4310 ####[facility] [address] [place], [address] CREAT,SERUM Normal 0.70-1.20 [facility] Comment on above: Result Comment: This specimen has been REJECTED due to Laboratory criteria:Hemolyzed.KRISTIN has been notified of need of recollection.12/01/24838 Anahi Tan Performed By: #### L 100.0100, L500.2500, L300.3900, L300.8000, L300.4310 ####[facility] [address] [place], [address] eGFR Normal >60 [facility] Comment on above: Result Comment: This specimen has been REJECTED due to Laboratory criteria:Hemolyzed.KRISTIN has been notified of need of recollection.12/01/24838 Anahi Tan Performed By: #### L 100.0100, L500.2500, L300.3900, L300.8000, L300.4310 ####[facility] [address] [place], [address] GAP Normal 5-15 [facility] Comment on above: Result Comment: This specimen has been REJECTED due to Laboratory criteria:Hemolyzed.KRISTIN has been notified of need of recollection.12/01/24838 Anahi Tan Performed By: #### L 100.0100, L500.2500, L300.3900, L300.8000, L300.4310 ####[facility] [address] [place], [address] GLU Normal 70-99 [facility] Comment on above: Result Comment: This specimen has been REJECTED due to Laboratory criteria:Hemolyzed.KRISTIN has been notified of need of recollection.12/01/24838 Anahi Tan Performed By: #### L 100.0100, L500.2500, L300.3900, L300.8000, L300.4310 ####[facility] [address] [place], [address] Potassium Normal 3.3-5.1 [facility] Comment on above: Result Comment: This specimen has been REJECTED due to Laboratory criteria:Hemolyzed.KRISTIN has been notified of need of recollection.12/01/24838 Anahi Tan Performed By: #### L 100.0100, L500.2500, L300.3900, L300.8000, L300.4310 ####[facility] [address] [place], [address] Basic Metabolic Profile (BMP) Normal 133-145 [facility] Comment on above: Result Comment: This specimen has been REJECTED due to Laboratory criteria:Hemolyzed.KRISTIN has been notified of need of recollection.12/01/24838 Anahi Tan Performed By: #### L 100.0100, L500.2500, L300.3900, L300.8000, L300.4310 ####[facility] [address] [place], [address] CBC W/Diff, Automatedon - Absolute Lymph 0.82 X10 3/uL Low 0.83-4.51 [facility] Comment on above: Performed By: #### L 100.0100 ####[facility] [address] [place], [address] Absolute Neut 8.4 X10 3/uL High 2.0-7.7 [facility] Comment on above: Performed By: #### L 100.0100 ####[facility] [address] [place], [address] Basophils/100 WBC (Bld) 0.3 % Normal 0-1 [facility] Comment on above: Performed By: #### L 100.0100 ####[facility] [address] [place], [address] Eosinophils/100 WBC (Bld) 0.3 % Normal 0-5 [facility] Comment on above: Performed By: #### L 100.0100 ####[facility] [address] [place], [address] Erythrocyte distribution width (RBC) [Ratio] 12.4 % Normal 11.6-14.6 [facility] Comment on above: Performed By: #### L 100.0100 ####[facility] [address] [place], [address] Hematocrit (Bld) [Volume fraction] 44.7 % Normal 40-54 [facility] Comment on above: Performed By: #### L 100.0100 ####[facility] [address] [place], [address] Hemoglobin (Bld) [Mass/Vol] 15.3 g/dL Normal 13.0-16.5 [facility] Comment on above: Performed By: #### L 100.0100 ####[facility] [address] [place], [address] IG% 0.300 Normal 0.0-0.9 [facility] Comment on above: Result Comment: IG% - Immature Granulocytes (promyelocytes, myelocytes andmetamyelocytes) > 1% indicates that a LEFT SHIFT is Present. Performed By: #### L 100.0100 ####[facility] [address] [place], [address] Lymphocytes/100 WBC (Bld) 8.0 % Low 19-41 [facility] Comment on above: Performed By: #### L 100.0100 ####[facility] [address] [place], [address] MCH (RBC) [Entitic mass] 32.2 pg High 27.0-32.0 [facility] Comment on above: Performed By: #### L 100.0100 ####[facility] [address] [place], [address] MCHC (RBC) [Mass/Vol] 34.2 g/dL Normal 32-36 [facility] Comment on above: Performed By: #### L 100.0100 ####[facility] [address] [place], [address] MCV (RBC) [Entitic vol] 94.1 fL High 80-94 [facility] Comment on above: Performed By: #### L 100.0100 ####[facility] [address] [place], [address] Monocytes/100 WBC (Bld) 10.1 % High 0-10 [facility] Comment on above: Performed By: #### L 100.0100 ####[facility] [address] [place], [address] Neutrophils/100 WBC (Bld) 81.0 % High 47-70 [facility] Comment on above: Performed By: #### L 100.0100 ####[facility] [address] [place], [address] Nucleated RBC (Bld) [#/Vol] 0 10*3/uL Normal 0-5 [facility] Comment on above: Performed By: #### L 100.0100 ####[facility] [address] [place], [address] Platelet mean volume (Bld) [Entitic vol] 8.8 fL Normal 6.2-12.0 [facility] Comment on above: Performed By: #### L 100.0100 ####[facility] [address] [place], [address] Platelets (Bld) [#/Vol] 209 10*3/uL Normal 150-450 [facility] Comment on above: Performed By: #### L 100.0100 ####[facility] [address] [place], [address] RBC (Bld) [#/Vol] 4.75 10*6/uL Normal 4.6-6.2 [facility] Comment on above: Performed By: #### L 100.0100 ####[facility] [address] [place], [address] RDW SD 43.2 fl Normal 35.1-43.9 [facility] Comment on above: Performed By: #### L 100.0100 ####[facility] [address] [place], [address] WBC (Bld) [#/Vol] 10.3 10*3/uL Normal 4.4-11.0 [facility] Comment on above: Performed By: #### L 100.0100 ####[facility] [address] [place], [address] Absolute Neut Normal 2.0-7.7 [facility] Comment on above: Result Comment: NORM SALDANA, SPOKE WITH HOLLY Performed By: #### L 100.0100, L500.2500, L300.3900, L300.8000, L300.4310 ####[facility] [address] [place], [address] HCT Normal 40-54 [facility] Comment on above: Result Comment: NORM SALDANA, SPOKE WITH HOLLY Performed By: #### L 100.0100, L500.2500, L300.3900, L300.8000, L300.4310 ####[facility] [address] [place], [address] HGB Normal 13.0-16.5 [facility] Comment on above: Result Comment: NORM SALDANA, SPOKE WITH HOLLY Performed By: #### L 100.0100, L500.2500, L300.3900, L300.8000, L300.4310 ####[facility] [address] [place], [address] MCH Normal 27.0-32.0 [facility] Comment on above: Result Comment: CLOT ALISHA, SPOKE WITH HOLLY Performed By: #### L 100.0100, L500.2500, L300.3900, L300.8000, L300.4310 ####[facility] [address] [place], [address] MCHC Normal 32-36 [facility] Comment on above: Result Comment: CLOT ALISHA, SPOKE WITH HOLLY Performed By: #### L 100.0100, L500.2500, L300.3900, L300.8000, L300.4310 ####[facility] [address] [place], [address] MCV Normal 80-94 [facility] Comment on above: Result Comment: CLOT ALISHA, SPOKE WITH HOLLY Performed By: #### L 100.0100, L500.2500, L300.3900, L300.8000, L300.4310 ####[facility] [address] [place], [address] NEUT% Normal 47-70 [facility] Comment on above: Result Comment: CLOT ALISHA, SPOKE WITH HOLLY Performed By: #### L 100.0100, L500.2500, L300.3900, L300.8000, L300.4310 ####[facility] [address] [place], [address] PLT Normal 150-450 [facility] Comment on above: Result Comment: CLOT ALISHA, SPOKE WITH HOLLY Performed By: #### L 100.0100, L500.2500, L300.3900, L300.8000, L300.4310 ####[facility] [address] [place], [address] RBC Normal 4.6-6.2 [facility] Comment on above: Result Comment: CLOT ALISHA, SPOKE WITH HOLLY Performed By: #### L 100.0100, L500.2500, L300.3900, L300.8000, L300.4310 ####[facility] [address] [place], [address] RDW CV Normal 11.6-14.6 [facility] Comment on above: Result Comment: NORM SALDANA, SPOKE WITH HOLLY Performed By: #### L 100.0100, L500.2500, L300.3900, L300.8000, L300.4310 ####[facility] [address] [place], [address] RDW SD Normal 35.1-43.9 [facility] Comment on above: Result Comment: NORM SALDANA, SPOKE WITH HOLLY Performed By: #### L 100.0100, L500.2500, L300.3900, L300.8000, L300.4310 ####[facility] [address] [place], [address] WBC Normal 4.4-11.0 [facility] Comment on above: Result Comment: NORM SALDANA, SPOKE WITH HOLLY Performed By: #### L 100.0100, L500.2500, L300.3900, L300.8000, L300.4310 ####[facility] [address] [place], [address] Chest 1 View (Portable)on Chest 1 View (Portable) Normal [facility] D-Dimer Quantitative (DVT/PE )on 12-01-2024 D-DIMER QUANT 0.34 FEU/ug/m Normal 0.27-0.49 [facility] Comment on above: Result Comment: NORM AL D-Dimer level (<0.50) indicates no DVT or PE. Performed By: #### L 100.0100, L500.2500, L300.3900, L300.8000, L300.4310 ####[facility] [address] [place], [address] Emergency Department Summary on 12-01-2024 Emergency Department Summary Normal [facility] L499.0042on 12-01-2024 Trop T High Sen 11 ng/L Normal <=22 [facility] Comment on above: Performed By: #### L 499.0042 ####[facility] [address] [place], [address] L499.0043on 12-01-2024 Trop T High Sen Normal <=22 [facility] Comment on above: Result Comment: [facility] ENT DISCHARGED Performed By: #### L 499.0043 ####[facility] [address] [place], [address] L501.4021on 12-01-2024 Trop T High Sen 12 ng/L Normal <=22 [facility] Comment on above: Order Comment: RED W. PREVIOUS SPECIMEN REJECTED DUE TOHEMOLYSIS. 12/01/24 0840 Anahi Tan. Performed By: #### L 500.2500, L501.4021 ####[facility] [address] [place], [address] Partial Thromboplast Timeon 12-01-2024 aPTT Coag (Bld) [Time] 26.6 s Normal 24.1-36.2 [facility] Comment on above: Performed By: #### L 100.0100, L500.2500, L300.3900, L300.8000, L300.4310 ####[facility] [address] [place], [address] Prothrombin Time w/INRon INR Coag (PPP) [Relative time] 1.1 {INR} Normal [facility] Comment on above: Performed By: #### L 100.0100, L500.2500, L300.3900, L300.8000, L300.4310 ####[facility] [address] [place], [address] PT Coag (PPP) [Time] 14.5 s Normal 11.7-14.9 [facility] Comment on above: Performed By: #### L 100.0100, L500.2500, L300.3900, L300.8000, L300.4310 ####[facility] [address] [place], [place], [address] EGD Reporton 11-30-2024 EGD Report Normal [facility] EGD Report Normal [facility] ERCP Biliary/Pancreason 11-05 ERCP Biliary/Pancreas Normal [facility] Frozen Section (charge)on Frozen Section (charge) Normal [facility] Comment on above: Performed By: #### P FSC ####[facility] [address] [place], [place], [address] Immunohistochemical Stainson 11-30-2024 Immunohistochemical Stains Normal [facility] Comment on above: Performed By: #### P FRANCIE BOURNEUIV ####[facility] [address] [place], [place], [address] MR/POSTOP.ANEon 11-30-2024 MR/POSTOP.ANE [facility] MR/POSTOP.ANE [facility] MR/[id number] 11-30-2024 MR/POSTOPAN2 [facility] O.R. Fluoro for C-Shaheen 11-05 O.R. Fluoro for C-Arm Normal [facility] Surgery Specimen Level Lea 11-30-2024 Surgery Specimen Level IV Normal [facility] Comment on above: Performed By: #### P STEFFEN PSUIV ####[facility] [address] [place], [address] MR/PAT.ANEon 11-29-2024 MR/PAT.ANE Normal [facility] XR ESOPHOGRAM W/BARIUM TABLE Ton 11-22-2024 [...] obtained. FINDINGS: Esophagus is diffusely dilated on sales development coordinator image. Barium tablet does not pass through [...] 11/22/2024 9:42:24 AM Ordering Provider: ANNA VEGA Normal [facility] XR SWALLOWING FUNCTIONon XR SWALLOWING FUNCTION ORIGINAL Images acquired, not reported on this accession number. Normal [facility] Gastroenterology Visit Repor ton 10-23-2024 Gastroenterology Visit Report Normal [facility] MR/BMS.BPon 07-31-2024 MR/BMS.BP Normal [facility] .Auto Diffon 05-10-2024 Basophil, Absolute 0.0 10 3/mcL Normal 0.0-0.2 [facility] Comment on above: Performed By: #### C MP, LIPID, PSA, GFR, ANEU, A1C, CBC, ADIFF #### [place] [address] [place], [place] [address] Basophils/100 WBC (Bld) 0.6 % Normal 0.0-2.5 [facility] Comment on above: Performed By: #### C MP, LIPID, PSA, GFR, ANEU, A1C, CBC, ADIFF #### [place] [address] [place], [place] [address] Eosinophil, Absolute 0.1 10 3/mcL Normal 0.0-0.7 [facility] Comment on above: Performed By: #### C MP, LIPID, PSA, GFR, ANEU, A1C, CBC, ADIFF #### [address] [address] Eosinophils/100 WBC (Bld) 2.1 % Normal 0.0-7.0 [facility] Comment on above: Performed By: #### C MP, LIPID, PSA, GFR, ANEU, A1C, CBC, ADIFF #### [address] [address] Lymphocyte, Absolute 0.9 10 3/mcL Normal 0.9-4.3 [facility] Comment on above: Performed By: #### C MP, LIPID, PSA, GFR, ANEU, A1C, CBC, ADIFF #### [address] [address] Lymphocytes/100 WBC (Bld) 17.9 % Low 20.0-40.0 [facility] Comment on above: Performed By: #### C MP, LIPID, PSA, GFR, ANEU, A1C, CBC, ADIFF #### [address] [address] Monocyte, Absolute 0.5 10 3/mcL Normal 0.1-1.4 [facility] Comment on above: Performed By: #### C MP, LIPID, PSA, GFR, ANEU, A1C, CBC, ADIFF #### [address] [address] Monocytes/100 WBC (Bld) 10.7 % Normal 2.0-13.0 [facility] Comment on above: Performed By: #### C MP, LIPID, PSA, GFR, ANEU, A1C, CBC, ADIFF #### [address] [address] Neutrophils/100 WBC (Bld) 68.7 % Normal 50.0-75.0 [facility] Comment on above: Performed By: #### C MP, LIPID, PSA, GFR, ANEU, A1C, CBC, ADIFF #### [address] [address] .GFRon 05-10-2024 GFR 113 ml/min/1.73sqm Normal [facility] Comment on above: Result Comment: GFR [...] LIPID, PSA, GFR, ANEU, A1C, CBC, ADIFF ####[place] [address] [place], [place] [address] GFR Non- 93 ml/min/1.73sqm [facility] Comment on above: Result Comment: GFR Population [...] LIPID, PSA, GFR, ANEU, A1C, CBC, ADIFF ####[place] [address] [place], [place] [address] .NEUABSon 05-10-2024 Neutrophil, Absolute 3.3 10 3/mcL Normal 2.3-8.1 [facility] Comment on above: Performed By: #### C MP, LIPID, PSA, GFR, ANEU, A1C, CBC, ADIFF #### [address] [place] [address] [place], [place] [address] A1Con 05-10-2024 Glucose [Mass/Vol] 105 mg/dL Normal [facility] Comment on above: Result Comment: Suzanne mated Average Glucose calculated by equation ((28.7xA1C)-46.7) Estimated average glucose (eAG) is a calculated value from Hemoglobin A1C and is admissions representative of the average blood glucose level in the last 2-3 month period. Normal range: less than 114 mg/dL Performed By: #### C MP, LIPID, PSA, GFR, ANEU, A1C, CBC, ADIFF #### [place] [address] HbA1c (Bld) [Mass fraction] 5.3 % Normal 4.3-6.4 [facility] Comment on above: Performed By: #### C MP, LIPID, PSA, GFR, ANEU, A1C, CBC, ADIFF #### [place] [address] CBCon 05-10-2024 Erythrocyte distribution width (RBC) [Ratio] 12.9 % Normal 11.5-15.5 [facility] Comment on above: Performed By: #### C MP, LIPID, PSA, GFR, ANEU, A1C, CBC, ADIFF #### [place] [address] Hematocrit (Bld) [Volume fraction] 45.0 % Normal 40.0-52.0 [facility] Comment on above: Performed By: #### C MP, LIPID, PSA, GFR, ANEU, A1C, CBC, ADIFF #### [place] [address] Hgb 15.3 G/dL Normal 13.0-17.5 [facility] Comment on above: Performed By: #### C MP, LIPID, PSA, GFR, ANEU, A1C, CBC, ADIFF #### [place] [address] MCH (RBC) [Entitic mass] 32.5 pg Normal 27.0-33.0 [facility] Comment on above: Performed By: #### C MP, LIPID, PSA, GFR, ANEU, A1C, CBC, ADIFF #### [address] [address] MCHC 34.1 G/dL Normal 32.0-36.0 [facility] Comment on above: Performed By: #### C MP, LIPID, PSA, GFR, ANEU, A1C, CBC, ADIFF #### [address] [address] MCV (RBC) [Entitic vol] 95.5 fL Normal 81.0-100.0 [facility] Comment on above: Performed By: #### C MP, LIPID, PSA, GFR, ANEU, A1C, CBC, ADIFF #### [address] [address] Platelet 187 10 3/mcL Normal 150-450 [facility] Comment on above: Performed By: #### C MP, LIPID, PSA, GFR, ANEU, A1C, CBC, ADIFF #### [address] [address] Platelet mean volume (Bld) [Entitic vol] 7.1 fL Normal 6.4-10.5 [facility] Comment on above: Performed By: #### C MP, LIPID, PSA, GFR, ANEU, A1C, CBC, ADIFF #### [address] [address] RBC 4.72 10 6/mcL Normal 4.50-6.00 [facility] Comment on above: Performed By: #### C MP, LIPID, PSA, GFR, ANEU, A1C, CBC, ADIFF #### [address] [address] WBC 4.8 10 3/mcL Normal 4.5-10.8 [facility] Comment on above: Performed By: #### C MP, LIPID, PSA, GFR, ANEU, A1C, CBC, ADIFF #### [address] [address] CMPon 05-10-2024 Albumin Level 4.2 G/dL Normal 3.4-4.8 [facility] Comment on above: Performed By: #### C MP, LIPID, PSA, GFR, ANEU, A1C, CBC, ADIFF #### [address] [address] Albumin/Globulin [Mass ratio] 1.4 {ratio} Normal 1.1-2.5 [facility] Comment on above: Performed By: #### C MP, LIPID, PSA, GFR, ANEU, A1C, CBC, ADIFF #### [address] [address] ALP [Catalytic activity/Vol] 90 U/L Normal 40-135 [facility] Comment on above: Performed By: #### C MP, LIPID, PSA, GFR, ANEU, A1C, CBC, ADIFF #### [address] [address] ALT [Catalytic activity/Vol] 37 U/L Normal 16-63 [facility] Comment on above: Performed By: #### C MP, LIPID, PSA, GFR, ANEU, A1C, CBC, ADIFF #### [address] [address] AST [Catalytic activity/Vol] 24 U/L Normal 10-40 [facility] Comment on above: Performed By: #### C MP, LIPID, PSA, GFR, ANEU, A1C, CBC, ADIFF #### [address] [address] Bili Total 0.5 mg/dL Normal 0.2-1.0 [facility] Comment on above: Result Comment: Use of this assay is not recommended for patients undergoing treatment with eltrombopag due to the potential for falsely elevated results. Performed By: #### C MP, LIPID, PSA, GFR, ANEU, A1C, CBC, ADIFF #### [address] [address] BUN/Creatinine Ratio 17 ratio Normal 7-27 [facility] Comment on above: Performed By: #### C MP, LIPID, PSA, GFR, ANEU, A1C, CBC, ADIFF #### [address] [address] Calcium [Mass/Vol] 9.4 mg/dL Normal 8.4-10.2 [facility] Comment on above: Performed By: #### C MP, LIPID, PSA, GFR, ANEU, A1C, CBC, ADIFF #### [place] [address] Chloride [Moles/Vol] 104 mmol/L Normal 98-107 [facility] Comment on above: Performed By: #### C MP, LIPID, PSA, GFR, ANEU, A1C, CBC, ADIFF #### [place] [address] CO2 [Moles/Vol] 22 mmol/L Low 23-31 [facility] Comment on above: Performed By: #### C MP, LIPID, PSA, GFR, ANEU, A1C, CBC, ADIFF #### [place] [address] Creatinine [Mass/Vol] 0.83 mg/dL Normal 0.70-1.30 [facility] Comment on above: Result Comment: Test ing performed on Siemens Dimension EXL analyzer using a modified kinetic Saida technique. Performed By: #### C MP, LIPID, PSA, GFR, ANEU, A1C, CBC, ADIFF #### [place] [address] Electrolyte Balance 17.0 mEq/L High 4.0-15.0 [facility] Comment on above: Performed By: #### C MP, LIPID, PSA, GFR, ANEU, A1C, CBC, ADIFF #### [place] [address] Globulin 2.9 G/dL Normal [facility] Comment on above: Performed By: #### C MP, LIPID, PSA, GFR, ANEU, A1C, CBC, ADIFF #### [place] [address] Glucose [Mass/Vol] 101 mg/dL Normal 80-115 [facility] Comment on above: Performed By: #### C MP, LIPID, PSA, GFR, ANEU, A1C, CBC, ADIFF #### [place] [id number] Potassium [Moles/Vol] 4.7 mmol/L Normal 3.5-5.1 [facility] Comment on above: Performed By: #### C MP, LIPID, PSA, GFR, ANEU, A1C, CBC, ADIFF #### [address] [address] Sodium [Moles/Vol] 143 mmol/L Normal 136-145 [facility] Comment on above: Performed By: #### C MP, LIPID, PSA, GFR, ANEU, A1C, CBC, ADIFF #### [address] [address] Total Protein 7.1 G/dL Normal 6.4-8.2 [facility] Comment on above: Performed By: #### C MP, LIPID, PSA, GFR, ANEU, A1C, CBC, ADIFF #### [address] [place] [place], [place] [address] Urea nitrogen [Mass/Vol] 14 mg/dL Normal 7-18 [facility] Comment on above: Performed By: #### C MP, LIPID, PSA, GFR, ANEU, A1C, CBC, ADIFF #### [address] [address] LABORATORYOrdered By: SYSTEM SYSTEM on 05-10-2024 Albumin [...] calculated value from Hemoglobin A1C and is admissions representative of the average blood glucose level [...] Cholesterol [Mass/Vol] 210 mg/dL High 0 - 2 00 mg/dL AO ADM SS Comment on above: [...] 05-10-2024 Cholesterol [Mass/Vol] 210 mg/dL High 0-200 [facility] Comment on above: Result Comment: Chol esterol Reference Interval: Less than 200 Desirable 200-239 Borderline high risk 240 and above High risk Performed By: #### C MP, LIPID, PSA, GFR, ANEU, A1C, CBC, ADIFF ####[place] [address] [place], [place] [address] Cholesterol in HDL [Mass/Vol] 46 mg/dL Normal 40-60 [facility] Comment on above: Performed By: #### C MP, LIPID, PSA, GFR, ANEU, A1C, CBC, ADIFF ####[facility] [place], [place] [address] Cholesterol in LDL [Mass/Vol] 138 mg/dL High 0-130 [facility] Comment on above: Performed By: #### C MP, LIPID, PSA, GFR, ANEU, A1C, CBC, ADIFF ####[place] [address] [place], [place] [address] Triglyceride [Mass/Vol] 132 mg/dL Normal 0-150 [facility] Comment on above: Result Comment: Trig lyceride Reference Interval: Less than 150 Normal 150-199 Borderline high risk 200-499 High risk 500 or higher Very high risk Performed By: #### C MP, LIPID, PSA, GFR, ANEU, A1C, CBC, ADIFF ####[facility] [place], [place] [address] PSAon 05-10-2024 Prostate Specific Antigen 0.34 ng/mL Normal 0.00-4.00 [facility] Comment on above: Performed By: #### C MP, LIPID, PSA, GFR, ANEU, A1C, CBC, ADIFF #### [facility] [address] [place], [place] [address] MR/BMS.BPon 05-02-2024 MR/BMS.BP Normal [facility] XR HAND MINIMUM 3 VIEWS RIGH Ton 02-15-2024 XR HAND MINIMUM 3 VIEWS RIGHT [...] 02/15/2024 9:50:15 AM Ordering Provider: FELIZ ALEXANDER [facility] .Auto Diffon 08-18-2023 Basophil, Absolute 0.0 10 3/mcL Normal 0.0-0.2 [facility] ([place]) Comment on above: Performed By: #### A CASSANDRA, CBC, GFR, A1C, CMP, ADIFF #### [address] [address] Basophils/100 WBC (Bld) 1.0 % Normal 0.0-2.5 [facility] ([place]) Comment on above: Performed By: #### A CASSANDRA, CBC, GFR, A1C, CMP, ADIFF #### [address] [address] Eosinophil, Absolute 0.2 10 3/mcL Normal 0.0-0.4 [facility] ([place]) Comment on above: Performed By: #### A CASSANDRA, CBC, GFR, A1C, CMP, ADIFF #### [address] [address] Eosinophils/100 WBC (Bld) 4.1 % Normal 0.0-7.0 [facility] ([place]) Comment on above: Performed By: #### A CASSANDRA, CBC, GFR, A1C, CMP, ADIFF #### [address] [address] Lymphocyte, Absolute 0.9 10 3/mcL Normal 0.8-3.9 [facility] ([place]) Comment on above: Performed By: #### A CASSANDRA, CBC, GFR, A1C, CMP, ADIFF #### [address] [address] Lymphocytes/100 WBC (Bld) 22.2 % Normal 10.0-50.0 [facility] ([place]) Comment on above: Performed By: #### A CASSANDRA, CBC, GFR, A1C, CMP, ADIFF #### [address] [address] Monocyte, Absolute 0.5 10 3/mcL Normal 0.2-1.0 [facility] ([place]) Comment on above: Performed By: #### A CASSANDRA, CBC, GFR, A1C, CMP, ADIFF #### [address] [address] Monocytes/100 WBC (Bld) 11.8 % Normal 1.7-13.0 [facility] ([place]) Comment on above: Performed By: #### A CASSANDRA, CBC, GFR, A1C, CMP, ADIFF #### [address] [address] Neutrophils/100 WBC (Bld) 60.9 % Normal 37.0-80.0 [facility] ([place]) Comment on above: Performed By: #### A CASSANDRA, CBC, GFR, A1C, CMP, ADIFF #### [address] [address] .GFRon 08-18-2023 GFR Non- 95 ml/min/1.73sqm Normal [facility] ([place]) Comment on above: Result Comment: GFR Population [...] CASSANDRA, CBC, GFR, A1C, CMP, ADIFF #### [address] [address] GFR 115 ml/min/1.73sqm Normal [facility] ([place]) Comment on above: Result Comment: GFR Population [...] CASSANDRA, CBC, GFR, A1C, CMP, ADIFF #### [address] [address] .NEUABSon 08-18-2023 Neutrophil, Absolute 2.4 10 3/mcL Low 2.9-6.2 [facility] ([place]) Comment on above: Performed By: #### A CASSANDRA, CBC, GFR, A1C, CMP, ADIFF #### [address] [address] A1Con 08-18-2023 HbA1c (Bld) [Mass fraction] 5.3 % Normal 4.3-6.4 [facility] ([place]) Comment on above: Performed By: #### A CASSANDRA, CBC, GFR, A1C, CMP, ADIFF #### [address] [address] CBCon 08-18-2023 Erythrocyte distribution width (RBC) [Ratio] 14.3 % Normal 11.5-14.5 [facility] ([place]) Comment on above: Order Comment: nedra hinton to Dr. Jay Jay Scanlon F: [phone] Performed By: #### A CASSANDRA, CBC, GFR, A1C, CMP, ADIFF #### [address] [address] Hematocrit (Bld) [Volume fraction] 42.9 % Normal 42.0-52.0 [facility] ([place]) Comment on above: Order Comment: nedra hinton to Dr. Jay Jay Scanlon F: [phone] Performed By: #### A CASSANDRA, CBC, GFR, A1C, CMP, ADIFF #### [place] [address] Hgb 15.1 G/dL Normal 14.0-18.0 [facility] ([place]) Comment on above: Order Comment: nedra hinton to Dr. Jay Jay Scanlon F: [phone] Performed By: #### A CASSANDRA, CBC, GFR, A1C, CMP, ADIFF #### [address] [address] MCH (RBC) [Entitic mass] 32.1 pg High 27.0-31.2 [facility] ([place]) Comment on above: Order Comment: nedra hinton to Dr. Jay Jay Scanlon F: [phone] Performed By: #### A CASSANDRA, CBC, GFR, A1C, CMP, ADIFF #### [place] [address] MCHC 35.3 G/dL Normal 31.8-35.4 [facility] ([place]) Comment on above: Order Comment: nedra hinton to Dr. Jay Jay Scanlon F: [phone] Performed By: #### A CASSANDRA, CBC, GFR, A1C, CMP, ADIFF #### [address] [address] MCV (RBC) [Entitic vol] 90.9 fL Normal 80.0-94.0 [facility] ([place]) Comment on above: Order Comment: nedra hinton to Dr. Jay Jay Scanlon F: [phone] Performed By: #### A CASSANDRA, CBC, GFR, A1C, CMP, ADIFF #### [address] [address] Platelet 181 10 3/mcL Normal 130-400 [facility] ([place]) Comment on above: Order Comment: nedra Scanlon F: [phone] Performed By: #### A CASSANDRA, CBC, GFR, A1C, CMP, ADIFF #### [address] [address] Platelet mean volume (Bld) [Entitic vol] 6.7 fL Low 7.4-10.4 [facility] ([place]) Comment on above: Order Comment: nedra Scanlon F: [phone] Performed By: #### A CASSANDRA, CBC, GFR, A1C, CMP, ADIFF #### [address] [address] RBC 4.71 10 6/mcL Normal 4.04-6.13 [facility] ([place]) Comment on above: Order Comment: nedra Scanlon F: [phone] Performed By: #### A CASSANDRA, CBC, GFR, A1C, CMP, ADIFF #### [address] [address] WBC 4.0 10 3/mcL Low 4.6-10.8 [facility] ([place]) Comment on above: Order Comment: nedra Scanlon F: [phone] Performed By: #### A CASSANDRA, CBC, GFR, A1C, CMP, ADIFF #### [address] [address] CMPon 08-18-2023 Albumin Level 3.9 G/dL Normal 3.4-4.8 [facility] ([place]) Comment on above: Order Comment: nedra hinton to Dr. Jay Jay Scanlon F: [phone] Performed By: #### A CASSANDRA, CBC, GFR, A1C, CMP, ADIFF #### [address] [address] Albumin/Globulin [Mass ratio] 1.3 {ratio} Normal 1.1-2.5 [facility] ([place]) Comment on above: Order Comment: nedra hinton to Dr. Jay Jay Scanlon F: [phone] Performed By: #### A CASSANDRA, CBC, GFR, A1C, CMP, ADIFF #### [address] [address] ALP [Catalytic activity/Vol] 105 U/L Normal 40-135 [facility] ([place]) Comment on above: Order Comment: nedra hinton to Dr. Jay Jay Scanlon F: [phone] Performed By: #### A CASSANDRA, CBC, GFR, A1C, CMP, ADIFF #### [address] [address] ALT [Catalytic activity/Vol] 29 U/L Normal 16-63 [facility] ([place]) Comment on above: Order Comment: nedra hinton to Dr. Jay Jay Scanlon F: [phone] Performed By: #### A CASSANDRA, CBC, GFR, A1C, CMP, ADIFF #### [address] [address] AST [Catalytic activity/Vol] 23 U/L Normal 10-40 [facility] ([place]) Comment on above: Order Comment: nedra hinton to Dr. Jay Jay Scanlon F: [phone] Performed By: #### A CASSANDRA, CBC, GFR, A1C, CMP, ADIFF #### [address] [address] Bili Total 0.4 mg/dL Normal 0.2-1.0 [facility] ([place]) Comment on above: Order Comment: nedra hinton to Dr. Jay Jay Scanlon F: [phone] Result Comment: Use of this assay is not recommended for patients undergoing treatment with eltrombopag due to the potential for falsely elevated results. Performed By: #### A CASSANDRA, CBC, GFR, A1C, CMP, ADIFF #### [address] [address] BUN/Creatinine Ratio 23 ratio Normal 7-27 [facility] ([place]) Comment on above: Order Comment: nedra hinton to Dr. Jay Jay Scanlon F: [phone] Performed By: #### A CASSANDRA, CBC, GFR, A1C, CMP, ADIFF #### [address] [address] Calcium [Mass/Vol] 8.8 mg/dL Normal 8.4-10.2 [facility] ([place]) Comment on above: Order Comment: nedra hinton to Dr. Jay Jay Scanlon F: [phone] Performed By: #### A CASSANDRA, CBC, GFR, A1C, CMP, ADIFF #### [address] [address] Chloride [Moles/Vol] 105 mmol/L Normal 98-107 [facility] ([place]) Comment on above: Order Comment: nedra hinton to Dr. Jay Jay Scanlon F: [phone] Performed By: #### A CASSANDRA, CBC, GFR, A1C, CMP, ADIFF #### [address] [address] CO2 [Moles/Vol] 27 mmol/L Normal 23-31 [facility] ([place]) Comment on above: Order Comment: nedra hinton to Dr. Jay Jay Scanlon F: [phone] Performed By: #### A CASSANDRA, CBC, GFR, A1C, CMP, ADIFF #### [address] [address] Creatinine [Mass/Vol] 0.82 mg/dL Normal 0.70-1.30 [facility] ([place]) Comment on above: Order Comment: nedra hinton to Dr. Jay Jay Scanlon F: [phone] Performed By: #### A CASSANDRA, CBC, GFR, A1C, CMP, ADIFF #### [address] [address] Electrolyte Balance 7.0 mEq/L Normal 4.0-15.0 [facility] ([place]) Comment on above: Order Comment: nedra hinton to Dr. Jay Jay Scanlon F: [phone] Performed By: #### A CASSANDRA, CBC, GFR, A1C, CMP, ADIFF #### [address] [address] Globulin 3.0 G/dL Normal [facility] ([place]) Comment on above: Order Comment: nedra hinton to Dr. Jay Jay Scanlon F: [phone] Performed By: #### A CASSANDRA, CBC, GFR, A1C, CMP, ADIFF #### [address] [address] Glucose [Mass/Vol] 108 mg/dL Normal 80-115 [facility] ([place]) Comment on above: Order Comment: nedra hinton to Dr. Jay Jay Scanlon F: [phone] Performed By: #### A CASSANDRA, CBC, GFR, A1C, CMP, ADIFF #### [address] [address] Potassium [Moles/Vol] 4.4 mmol/L Normal 3.5-5.1 [facility] ([place]) Comment on above: Order Comment: nedra hinton to Dr. Jay Jay Scanlon F: [phone] Performed By: #### A CASSANDRA, CBC, GFR, A1C, CMP, ADIFF #### [address] [address] Sodium [Moles/Vol] 139 mmol/L Normal 136-145 [facility] ([place]) Comment on above: Order Comment: nedra hinton to Dr. Jay Jay Scanlon F: [phone] Performed By: #### A CASSANDRA, CBC, GFR, A1C, CMP, ADIFF #### [address] [address] Total Protein 6.9 G/dL Normal 6.4-8.2 [facility] ([place]) Comment on above: Order Comment: nedra hinton to Dr. Jay Jay Scanlon F: [phone] Performed By: #### A CASSANDRA, CBC, GFR, A1C, CMP, ADIFF #### [address] [place] [place], [place] [address] Urea nitrogen [Mass/Vol] 19 mg/dL High 7-18 [facility] ([place]) Comment on above: Order Comment: nedra hinton to Dr. Jay Jay Scanlon F: [phone] Performed By: #### A CASSANDRA, CBC, GFR, A1C, CMP, ADIFF #### [facility] [address] [place], [place] [address] LABORATORYOrdered By: SYSTEM SYSTEM on 08-18-2023 Albumin [...] SS XR HAND MINIMUM 3 VIEWS CRISTINA Pal 07-08-2023 XR HAND MINIMUM 3 VIEWS RIGHT [...] 07/08/2023 7:57:46 AM Ordering Provider: ANNA VEGA [facility] ([place] SPINE CERVICAL W/O JOHN Dillon 06-28-2023 [...] 06/28/2023 7:25:48 PM Ordering Provider: GINA HOWARD Normal [facility] ([place]) BMP with eGFRon 03-01-2023 AGE 62 years Normal [facility] Comment on above: Performed By: #### 2 54186 #### [facility],[address] [place] [address] 12557 Anion gap [Moles/Vol] 12 mmol/L Normal 10 - 20 [facility] Comment on above: Performed By: #### 2 97638 #### [facility],[address] [place] [address] 49258 BMP with eGFR Normal [facility] Comment on above: Result Comment: BASI C METABOLIC PANEL Performed By: #### 2 32735 #### [facility],[address] [place] [address] 77429 Calcium [Mass/Vol] 8.8 mg/dL Normal 8.5 - 10.1 [facility] Comment on above: Performed By: #### 2 66173 #### [facility],[address] [place] [address] 28748 Chloride [Moles/Vol] 105 mmol/L Normal 98 - 107 [facility] Comment on above: Performed By: #### 2 97128 #### [facility],[address] [place] [address] 56273 CO2 [Moles/Vol] 24.9 mmol/L Normal 21.0 - 32.0 [facility] Comment on above: Performed By: #### 2 55206 #### [facility],[address] [place] [address] 78063 Creatinine [Mass/Vol] 0.85 mg/dL Normal 0.70 - 1.[address] [facility] Comment on above: Performed By: #### 2 46147 #### [facility],[address] [place] [address] 90946 GFR/1.73 sq M.predicted among non-blacks MDRD (S/P/Bld) [Vol rate/Area] mL/min/{1.73_m2} Normal 60 - 999 [facility] Comment on above: Performed By: #### 2 44383 #### [facility],[address] [place] [address] 32170 Result Comment: ACCO RDING TO THE NATIONAL KIDNEY DISEASE EDUCATION PROGRAM(NKDE), A NORMAL eGFR IS A VALUE GREATER THAN OR EQUAL TO 60 ML/MIN/1.73 SQ METERS. CHRONIC KIDNEY DISEASE: <60mL/MIN/1.73 SQ METERS KIDNEY FAILURE: <15mL/MIN/1.73 SQ METERS THIS TEST SHOULD ONLY BE USED FOR PATIENTS 18 YEARS OF AGE AND OLDER. Glucose [Mass/Vol] 125 mg/dL High 74 - 106 [facility] Comment on above: Performed By: #### 2 25988 #### [facility],[address] [place] [address] 65557 Potassium [Moles/Vol] 3.9 mmol/L Normal 3.5 - 5.1 [facility] Comment on above: Performed By: #### 2 92234 #### [facility],[address] [place] [address] 37787 Sodium [Moles/Vol] 138 mmol/L Normal 136 - 145 [facility] Comment on above: Performed By: #### 2 34919 #### [facility],[address] [place] [address] 45822 Urea nitrogen [Mass/Vol] 10 mg/dL Normal 7 - 18 [facility] Comment on above: Performed By: #### 2 78476 #### [facility],[address] [place] [address] CBC + DIFFon 03-01-2023 Baso # 0.00 x10EE3/UL Normal 0.00 - 0.10 [facility] Comment on above: Performed By: #### 2 14450 #### [facility],[address] [place] [address] 50160 Basophils/100 WBC (Bld) 0.0 % Normal 0.0 - 2.0 [facility] Comment on above: Performed By: #### 2 45782 #### [facility],[address] [place] [address] CBC + DIFF Normal [facility] Comment on above: Result Comment: CBC- COMPLETE BLOOD COUNT Performed By: #### 2 59960 #### [facility],[address] [place] [address] EO # 0.00 x10EE3/UL Normal 0.00 - 0.50 [facility] Comment on above: Performed By: #### 2 17401 #### [facility],[address] [place] [address] 45890 Eosinophils/100 WBC (Bld) 0.0 % Normal 0.0 - 7.0 [facility] Comment on above: Performed By: #### 2 22482 #### [facility],[address] [place] [address] Erythrocyte distribution width (RBC) [Ratio] 13.1 % Normal 12.0 - 15.6 [facility] Comment on above: Performed By: #### 2 48467 #### [facility],[address] [place] [address] Hematocrit (Bld) [Volume fraction] 41.5 % Normal 40.0 - 52.0 [facility] Comment on above: Performed By: #### 2 56635 #### [facility],[address] [place], [place] [id number] Hemoglobin (Bld) [Mass/Vol] 14.0 g/dL Normal 13.0 - 17.5 [facility] Comment on above: Performed By: #### 2 15601 #### [facility],[address] [place] [address] Lymph # 0.30 x10EE3/UL Low 0.80 - 2.80 [facility] Comment on above: Performed By: #### 2 60711 #### [place] [address] Lymphocytes/100 WBC (Bld) 2.9 % Low 20.0 - 45.0 [facility] Comment on above: Performed By: #### 2 81217 #### [facility],[address] [place] [address] MANUAL DIFF N/A Normal [facility] Comment on above: Performed By: #### 2 64174 #### [place] [address] MCH (RBC) [Entitic mass] 32 pg Normal 27 - 33 [facility] Comment on above: Performed By: #### 2 34977 #### [place] [address] MCHC 34 X10 3 Normal 32 - 36 [facility] Comment on above: Performed By: #### 2 02968 #### [place] [address] MCV (RBC) [Entitic vol] 96 fL Normal 81 - 98 [facility] Comment on above: Performed By: #### 2 00262 #### [place] [address] Chilton # 0.70 x10EE3/UL Normal 0.20 - 1.00 [facility] Comment on above: Performed By: #### 2 48548 #### [place] [address] MONOS % 6.3 % Normal 0.0 - 10.0 [facility] Comment on above: Performed By: #### 2 83287 #### [facility],[address] [place] [address] Morphology Colten (Bld) [Interp] N/A Normal [facility] Comment on above: Result Comment: {CD] Performed By: #### 2 72823 #### [facility],[address] [place] [address] Neut # 9.70 x10EE3/UL High 1.50 - 7.10 [facility] Comment on above: Performed By: #### 2 89811 #### [place] [address] Neutrophils/100 WBC (Bld) 90.8 % High 46.0 - 76.0 [facility] Comment on above: Performed By: #### 2 97291 #### [place] [address] PLATELET 225 x10EE3/UL Normal 150 - 450 [facility] Comment on above: Performed By: #### 2 45346 #### [place] [address] Platelet mean volume (Bld) [Entitic vol] 7.1 fL Normal 6.4 - 10.5 [facility] Comment on above: Result Comment: AUTO MATED DIFFERENTIAL Performed By: #### 2 65923 #### [place] [address] RBC 4.34 x 10EE6/UL Low 4.50 - 6.00 [facility] Comment on above: Performed By: #### 2 80139 #### [place] [address] WBC 10.7 x 10EE3/UL Normal 4.5 - 10.8 [facility] Comment on above: Performed By: #### 2 82676 #### [address] [address] KNEE 2 VIEWS LTon 02-28-2023 KNEE 2 VIEWS LT [address] [address] Patient: MISAEL HAWKINS Phone#: : 1960 Age: 62 Gender: M Pt. Type: Out Account: [id number] Location: [id number] Ordering: JAY JAY SCANLON Exam Date: 02/28/2023/17:41 Family Phys: JAIME ROACH Charge Code: [id number] Physician: [place] Order #: [id number] Dose#: PROCEDURE: X-RAY KNEE LT 2 VIEWS [...] Coon MD on 02/28/2023 at 18:18 Normal [facility] NM MYOCARDIAL SPECT STRESS/R ESTon 02-25-2023 NM [...] Interpreted By: Diogenes Blackwood Preliminary Report By: Dioegnes Blackwood Electronically Signed By: Diogenes Blackwood Dictated Date: 02/25/2023 10:25:21 AM Prelim Date: 02/25/2023 10:25:21 AM Sign Date: 02/25/2023 10:28:14 AM Ordering Provider:Anna Carias [facility] ([place]) .Auto Diffon 02-16-2023 Basophil, Absolute 0.0 10 3/mcL Normal 0.0-0.2 [facility] ([place]) Comment on above: Performed By: #### C MP, A1C, GFR, ANEU, ADIFF, CBC #### [address] [address] Basophils/100 WBC (Bld) 0.6 % Normal 0.0-2.5 [facility] ([place]) Comment on above: Performed By: #### C MP, A1C, GFR, ANEU, ADIFF, CBC #### [address] [address] Eosinophil, Absolute 0.1 10 3/mcL Normal 0.0-0.4 [facility] ([place]) Comment on above: Performed By: #### C MP, A1C, GFR, ANEU, ADIFF, CBC #### [address] [address] Eosinophils/100 WBC (Bld) 1.6 % Normal 0.0-7.0 [facility] ([place]) Comment on above: Performed By: #### C MP, A1C, GFR, ANEU, ADIFF, CBC #### [address] [address] Lymphocyte, Absolute 1.1 10 3/mcL Normal 0.8-3.9 [facility] ([place]) Comment on above: Performed By: #### C MP, A1C, GFR, ANEU, ADIFF, CBC #### [address] [address] Lymphocytes/100 WBC (Bld) 19.1 % Normal 10.0-50.0 [facility] ([place]) Comment on above: Performed By: #### C MP, A1C, GFR, ANEU, ADIFF, CBC #### [address] [address] Monocyte, Absolute 0.5 10 3/mcL Normal 0.2-1.0 [facility] ([place]) Comment on above: Performed By: #### C MP, A1C, GFR, ANEU, ADIFF, CBC #### [address] [address] Monocytes/100 WBC (Bld) 8.9 % Normal 1.7-13.0 [facility] ([place]) Comment on above: Performed By: #### C MP, A1C, GFR, ANEU, ADIFF, CBC #### [address] [address] Neutrophils/100 WBC (Bld) 69.8 % Normal 37.0-80.0 [facility] ([place]) Comment on above: Performed By: #### C MP, A1C, GFR, ANEU, ADIFF, CBC #### [address] [address] .GFRon 02-16-2023 GFR 117 ml/min/1.73sqm Normal [facility] ([place]) Comment on above: Result Comment: GFR Population [...] CASSANDRA, CBC, GFR, A1C, CMP, ADIFF #### [address] [address] GFR Non- 97 ml/min/1.73sqm Normal [facility] ([place]) Comment on above: Result Comment: GFR Population [...] CASSANDRA, CBC, GFR, A1C, CMP, ADIFF #### [address] [address] .NEUABSon 02-16-2023 Neutrophil, Absolute 4.0 10 3/mcL Normal 2.9-6.2 [facility] ([place]) Comment on above: Performed By: #### C MP, A1C, GFR, ANEU, ADIFF, CBC #### [address] [address] A1Con 02-16-2023 HbA1c (Bld) [Mass fraction] 5.4 % Normal 4.3-6.4 [facility] ([place]) Comment on above: Order Comment: nedra hinton to Dr. Jay Jay Scanlon F: [phone] Performed By: #### A CASSANDRA, CBC, GFR, A1C, CMP, ADIFF #### [address] [address] CBCon 02-16-2023 Erythrocyte distribution width (RBC) [Ratio] 13.3 % Normal 11.5-14.5 [facility] ([place]) Comment on above: Order Comment: nedra hinton to Dr. Jay Jay Scanlon Performed By: #### C MP, A1C, GFR, ANEU, ADIFF, CBC #### [address] [address] Hematocrit (Bld) [Volume fraction] 42.8 % Normal 42.0-52.0 [facility] ([place]) Comment on above: Order Comment: cc ronnie sults to Dr. Jay Jay Scanlon Performed By: #### C MP, A1C, GFR, ANEU, ADIFF, CBC #### [address] [address] Hgb 14.8 G/dL Normal 14.0-18.0 [facility] ([place]) Comment on above: Order Comment: cc ronnie sults to Dr. Jay Jay Scanlon Performed By: #### C MP, A1C, GFR, ANEU, ADIFF, CBC #### [address] [address] MCH (RBC) [Entitic mass] 32.7 pg High 27.0-31.2 [facility] ([place]) Comment on above: Order Comment: nedra hinton to Dr. Jay Jay Scanlon Performed By: #### C MP, A1C, GFR, ANEU, ADIFF, CBC #### [place] [address] MCHC 34.5 G/dL Normal 31.8-35.4 [facility] ([place]) Comment on above: Order Comment: nedra hinton to Dr. Jay Jay Scanlon Performed By: #### C MP, A1C, GFR, ANEU, ADIFF, CBC #### [address] [address] MCV (RBC) [Entitic vol] 94.8 fL High 80.0-94.0 [facility] ([place]) Comment on above: Order Comment: nedra hinton to Dr. Jay Jay Scanlon Performed By: #### C MP, A1C, GFR, ANEU, ADIFF, CBC #### [address] [address] Platelet 210 10 3/mcL Normal 130-400 [facility] ([place]) Comment on above: Order Comment: nedra hinton to Dr. Jay Jay Scanlon Performed By: #### C MP, A1C, GFR, ANEU, ADIFF, CBC #### [address] [address] Platelet mean volume (Bld) [Entitic vol] 7.4 fL Normal 7.4-10.4 [facility] ([place]) Comment on above: Order Comment: cc ronnie sults to Dr. Jay Jay Scanlon Performed By: #### C MP, A1C, GFR, ANEU, ADIFF, CBC #### [address] [address] RBC 4.51 10 6/mcL Normal 4.04-6.13 [facility] ([place]) Comment on above: Order Comment: cc ronnie sults to Dr. Jay Jay Scanlon Performed By: #### C MP, A1C, GFR, ANEU, ADIFF, CBC #### [address] [address] WBC 5.7 10 3/mcL Normal 4.6-10.8 [facility] ([place]) Comment on above: Order Comment: cc ronnie kelseyts to Dr. Jay Jay Scanlon Performed By: #### C MP, A1C, GFR, ANEU, ADIFF, CBC #### [address] [address] CMPon 02-16-2023 Albumin Level 4.4 G/dL Normal 3.4-4.8 [facility] ([place]) Comment on above: Order Comment: nedra hinton to Dr. Jay Jay Scanlon F: [phone] Performed By: #### A CASSANDRA, CBC, GFR, A1C, CMP, ADIFF #### [address] [address] Albumin/Globulin [Mass ratio] 1.3 {ratio} Normal 1.1-2.5 [facility] ([place]) Comment on above: Order Comment: nedra hinton to Dr. Jay Jay Scanlon F: [phone] Performed By: #### A CASSANDRA, CBC, GFR, A1C, CMP, ADIFF #### [address] [address] ALP [Catalytic activity/Vol] 90 U/L Normal 40-135 [facility] ([place]) Comment on above: Order Comment: nedra hinton to Dr. Jay Jay Scanlon F: [phone] Performed By: #### A CASSANDRA, CBC, GFR, A1C, CMP, ADIFF #### [address] [address] ALT [Catalytic activity/Vol] 26 U/L Normal 16-63 [facility] ([place]) Comment on above: Order Comment: nedra hinton to Dr. Jay Jay Scanlon F: [phone] Performed By: #### A CASSANDRA, CBC, GFR, A1C, CMP, ADIFF #### [address] [address] AST [Catalytic activity/Vol] 21 U/L Normal 10-40 [facility] ([place]) Comment on above: Order Comment: nedra hinton to Dr. Jay Jay Scanlon F: [phone] Performed By: #### A CASSANDRA, CBC, GFR, A1C, CMP, ADIFF #### [address] [address] Bili Total 0.6 mg/dL Normal 0.2-1.0 [facility] ([place]) Comment on above: Order Comment: nedra hinton to Dr. Jay Jay Scanlon F: [phone] Result Comment: Use of this assay is not recommended for patients undergoing treatment with eltrombopag due to the potential for falsely elevated results. Performed By: #### A CASSANDRA, CBC, GFR, A1C, CMP, ADIFF #### [address] [address] BUN/Creatinine Ratio 25 ratio Normal 7-27 [facility] ([place]) Comment on above: Order Comment: nedra Scanlon F: [phone] Performed By: #### A CASSANDRA, CBC, GFR, A1C, CMP, ADIFF #### [address] [address] Calcium [Mass/Vol] 9.1 mg/dL Normal 8.4-10.2 [facility] ([place]) Comment on above: Order Comment: nedra hinton to Dr. Jay Jay Scanlon F: [phone] Performed By: #### A CASSANDRA, CBC, GFR, A1C, CMP, ADIFF #### [address] [address] Chloride [Moles/Vol] 106 mmol/L Normal 98-107 [facility] ([place]) Comment on above: Order Comment: cc ronnie kelseyts to Dr. Jay Jay Scanlon F: Performed By: #### A CASSANDRA, CBC, GFR, A1C, CMP, ADIFF #### [address] [address] CO2 [Moles/Vol] 28 mmol/L Normal 23-31 [facility] ([place]) Comment on above: Order Comment: cc ronnie kelseyts to Dr. Jay Jay Scanlon F: Performed By: #### A CASSANDRA, CBC, GFR, A1C, CMP, ADIFF #### [place] [address] Creatinine [Mass/Vol] 0.81 mg/dL Normal 0.70-1.30 [facility] ([place]) Comment on above: Order Comment: nedra kelseyts to Dr. Jay Jay Scanlon F: Performed By: #### A CASSANDRA, CBC, GFR, A1C, CMP, ADIFF #### [place] [id number] Electrolyte Balance 10.0 mEq/L Normal 4.0-15.0 [facility] ([place]) Comment on above: Order Comment: nedra hinton to Dr. Jay Jay Scanlon F: Performed By: #### A CASSANDRA, CBC, GFR, A1C, CMP, ADIFF #### [address] [address] Globulin 3.3 G/dL Normal [facility] ([place]) Comment on above: Order Comment: nedra hinton to Dr. Jay Jay Scanlon F: Performed By: #### A CASSANDRA, CBC, GFR, A1C, CMP, ADIFF #### [address] [address] Glucose [Mass/Vol] 92 mg/dL Normal 80-115 [facility] ([place]) Comment on above: Order Comment: nedra hinton to Dr. Jay Jay Scanlon F: Performed By: #### A CASSANDRA, CBC, GFR, A1C, CMP, ADIFF #### [address] [address] Potassium [Moles/Vol] 5.0 mmol/L Normal 3.5-5.1 [facility] ([place]) Comment on above: Order Comment: nedra hinton to Dr. Jay Jay Scanlon F: [phone] Performed By: #### A CASSANDRA, CBC, GFR, A1C, CMP, ADIFF #### [address] [address] Sodium [Moles/Vol] 144 mmol/L Normal 136-145 [facility] ([place]) Comment on above: Order Comment: nedra hinton to Dr. Jay Jay Scanlon F: [phone] Performed By: #### A CASSANDRA, CBC, GFR, A1C, CMP, ADIFF #### [address] [address] Total Protein 7.7 G/dL Normal 6.4-8.2 [facility] ([place]) Comment on above: Order Comment: nedra hinton to Dr. Jay Jay Scanlon F: [phone] Performed By: #### A CASSANDRA, CBC, GFR, A1C, CMP, ADIFF #### [address] [address] Urea nitrogen [Mass/Vol] 20 mg/dL High 7-18 [facility] ([place]) Comment on above: Order Comment: nedra hinton to Dr. Jay Jay Scanlon F: [phone] Performed By: #### A CASSANDRA, CBC, GFR, A1C, CMP, ADIFF #### [address] [address] BMP with eGFRon 02-10-2023 AGE 62 years Normal [facility] Comment on above: Performed By: #### 2 35645 #### [facility],[address] [place] [address] Anion gap [Moles/Vol] 12 mmol/L Normal 10 - 20 [facility] Comment on above: Performed By: #### 2 79516 #### [facility],[address] [place] [address] BMP with eGFR Normal [facility] Comment on above: Result Comment: BASI C METABOLIC PANEL Performed By: #### 2 10790 #### [facility],[address] [place] [address] Calcium [Mass/Vol] 9.1 mg/dL Normal 8.5 - 10.1 [facility] Comment on above: Performed By: #### 2 64530 #### [facility],[address] [place] [address] Chloride [Moles/Vol] 107 mmol/L Normal 98 - 107 [facility] Comment on above: Performed By: #### 2 17574 #### [facility],[address] [place] [address] CO2 [Moles/Vol] 26.1 mmol/L Normal 21.0 - 32.0 [facility] Comment on above: Performed By: #### 2 77774 #### [facility],[address] [place] [address] Creatinine [Mass/Vol] 0.71 mg/dL Normal 0.70 - 1.[address] [facility] Comment on above: Performed By: #### 2 46018 #### [facility],[address] [place] [address] GFR/1.73 sq M.predicted among non-blacks MDRD (S/P/Bld) [Vol rate/Area] mL/min/{1.73_m2} Normal 60 - 999 [facility] Comment on above: Performed By: #### 2 74987 #### [facility],[address] [place] [address] Result Comment: ACCO RDING TO THE NATIONAL KIDNEY DISEASE EDUCATION PROGRAM(NKDE), A NORMAL eGFR IS A VALUE GREATER THAN OR EQUAL TO 60 ML/MIN/1.73 SQ METERS. CHRONIC KIDNEY DISEASE: <60mL/MIN/1.73 SQ METERS KIDNEY FAILURE: <15mL/MIN/1.73 SQ METERS THIS TEST SHOULD ONLY BE USED FOR PATIENTS 18 YEARS OF AGE AND OLDER. Glucose [Mass/Vol] 94 mg/dL Normal 74 - 106 [facility] Comment on above: Performed By: #### 2 77295 #### [facility],[address] [place] [address] Potassium [Moles/Vol] 4.0 mmol/L Normal 3.5 - 5.1 [facility] Comment on above: Performed By: #### 2 32456 #### [facility],[address] [place] [address] Sodium [Moles/Vol] 141 mmol/L Normal 136 - 145 [facility] Comment on above: Performed By: #### 2 80811 #### [facility],[address] [place] [address] Urea nitrogen [Mass/Vol] 17 mg/dL Normal 7 - 18 [facility] Comment on above: Performed By: #### 2 74471 #### [facility],[address] [place] [address] CBC + DIFFon 02-10-2023 Baso # 0.00 x10EE3/UL Normal 0.00 - 0.10 [facility] Comment on above: Performed By: #### 2 61377 #### [facility],[address] [place] [address] Basophils/100 WBC (Bld) 0.6 % Normal 0.0 - 2.0 [facility] Comment on above: Performed By: #### 2 03321 #### [facility],[address] [place] [address] CBC + DIFF Normal [facility] Comment on above: Result Comment: CBC- COMPLETE BLOOD COUNT Performed By: #### 2 84529 #### [facility],[address] [place] [address] EO # 0.10 x10EE3/UL Normal 0.00 - 0.50 [facility] Comment on above: Performed By: #### 2 41335 #### [place] [address] Eosinophils/100 WBC (Bld) 1.6 % Normal 0.0 - 7.0 [facility] Comment on above: Performed By: #### 2 42455 #### [facility],[address] [place] [address] Erythrocyte distribution width (RBC) [Ratio] 13.2 % Normal 12.0 - 15.6 [facility] Comment on above: Performed By: #### 2 69747 #### [place] [address] Hematocrit (Bld) [Volume fraction] 43.2 % Normal 40.0 - 52.0 [facility] Comment on above: Performed By: #### 2 86353 #### [place] [address] Hemoglobin (Bld) [Mass/Vol] 14.8 g/dL Normal 13.0 - 17.5 [facility] Comment on above: Performed By: #### 2 94022 #### [place] [address] Lymph # 0.90 x10EE3/UL Normal 0.80 - 2.80 [facility] Comment on above: Performed By: #### 2 31843 #### [facility],[address] [place] [address] Lymphocytes/100 WBC (Bld) 23.8 % Normal 20.0 - 45.0 [facility] Comment on above: Performed By: #### 2 17833 #### [place] [address] MANUAL DIFF N/A Normal [facility] Comment on above: Performed By: #### 2 87240 #### [place] [address] MCH (RBC) [Entitic mass] 33 pg Normal 27 - 33 [facility] Comment on above: Performed By: #### 2 69380 #### [facility],[address] [place] [address] MCHC 34 X10 3 Normal 32 - 36 [facility] Comment on above: Performed By: #### 2 76745 #### [facility],[address] [place] [address] MCV (RBC) [Entitic vol] 96 fL Normal 81 - 98 [facility] Comment on above: Performed By: #### 2 43000 #### [facility],[address] [place] [address] Chilton # 0.40 x10EE3/UL Normal 0.20 - 1.00 [facility] Comment on above: Performed By: #### 2 37894 #### [place] [address] MONOS % 10.9 % High 0.0 - 10.0 [facility] Comment on above: Performed By: #### 2 71649 #### [facility],[address] [place] [address] Morphology Colten (Bld) [Interp] N/A Normal [facility] Comment on above: Result Comment: {CD] Performed By: #### 2 46047 #### [facility],[address] [place] [address] Neut # 2.30 x10EE3/UL Normal 1.50 - 7.10 [facility] Comment on above: Performed By: #### 2 65689 #### [place] [address] Neutrophils/100 WBC (Bld) 63.1 % Normal 46.0 - 76.0 [facility] Comment on above: Performed By: #### 2 20902 #### [place] [address] PLATELET 207 x10EE3/UL Normal 150 - 450 [facility] Comment on above: Performed By: #### 2 05414 #### [facility],[address] [place] [address] Platelet mean volume (Bld) [Entitic vol] 7.1 fL Normal 6.4 - 10.5 [facility] Comment on above: Result Comment: AUTO MATED DIFFERENTIAL Performed By: #### 2 53585 #### [facility],[address] [place] [address] RBC 4.52 x 10EE6/UL Normal 4.50 - 6.00 [facility] Comment on above: Performed By: #### 2 85309 #### [facility],[address] [place] [address] WBC 3.6 x 10EE3/UL Low 4.5 - 10.8 [facility] Comment on above: Performed By: #### 2 31177 #### [facility],[address] [place] [address] CHEST 2 VIEWSon 02-10-2023 CHEST 2 VIEWS [place] [address] Patient: MISAEL HAWKINS Phone#: : 1960 Age: 62 Gender: M Pt. Type: Out Account: [id number] Location: [facility] Ordering: JAY JAY SCANLON Exam Date: 02/10/2023/9:02 Family Phys: JAIME ROACH Charge Code: [id number] Physician: [place] Order #: [id number] Dose#: PROCEDURE: X-RAY CHEST 2 VIEWS COMPARISON: [...] No acute pulmonary parenchymal abnormality. Dictated by: Radah Coon MD on 02/10/2023 at 11:49 Approved by: Radha Coon MD on 02/10/2023 at 11:52 Normal [facility] LABORATORYOrdered By: SYSTEM SYSTEM on 07-24-2022 Albumin [...] ANES Adrienne 01-28-2017 ANES POST HNO ID: [id number]: Jose Ramon Keith: AnesthesiologyAuthor Type: AnesthesiologistType: Anesthesia PostOpFiled: 01/28/2017 11:30 AMNote Text:[facility]IONAL ANESTHESIOLOGY POST ANESTHESIA NOTEPATIENT NAME: Cyndee HawkinsMRN: [id number]: [id number]: 136/85Pulse: 68Resp: 18Temp: 36.5 ?C (97.7 ?F)TempSrc: OralSpO2: 99%Weight: 94.8 kg (209 lb)Height: 179.1 cm (5' 10.5")No apparent anesthetic complications. The patient is appropriatelyhydrated with stable respiratory and cardiovascular status. Patient hassafe and adequate airway control. The patient has appropriate pain reliefand no significant post operative nausea or vomiting. The patient hasachieved baseline mental status.Further assessment by Anesthesia Service: NoneOther remarks: NoneSIGNATURE: Jose Ramon Causey, MDDATE: January 28, 2017TIME: 11:30 AM [facility] [facility] ANE PREOPon 01-28-2017 ANES PREOP HNO ID: [id number]: Jose Ramon CauseyService: AnesthesiologyAuthor Type: AnesthesiologistType: Anesthesia PreOpFiled: 01/28/2017 10:00 AMNote Text:REGIONAL ANESTHESIOLOGY DAY OF SURGERY NOTEPATIENT NAME: Cyndee HawkinsMRN: [id number](s) (LRB):EXCISION AND REPAIR OF > 1/4 OF [...] within 48 hours ofSurgery/Procedure.SIGN ATURE: Jose Ramon Causey MDDATE: January 28, 2017TIME: 9:48 AM [facility] HISTORY PHYSICALon 7 HISTORY PHYSICAL HNO ID: [id number]: Valdo Carlsone: OphthalmologyAuthor Type: PhysicianType: HANDPFiled: 01/28/2017 [...] 01/11/17.SIGNATURE: Valdo Ann MD PATIENT NAME: Cyndee JohnsonTE: January 28, 2017 : 10:37 AM PAGER: [facility] OPERATIVE NOon 01-28-2017 OPERATIVE NO HNO ID: [id number]: Valdo Torrez: OphthalmologyAutholexi Type: PhysicianType: Operative ReportFiled: 01/28/2017 11:07 AMNote Text: OPERATIVE/PROCEDURE REPORT OPHTHAMOLOGYLOG ID: [id number]/Procedure Date: 01/28/2017Incision/Proced ure Start Time: 10:45 AMIncision Close/Procedure End Time: 11:02 AMS[address]geon(s)/[address](s) and Software Test Specialist(s):Surgeon(s) and Role: * Valdo Ann - PrimaryProcedure(s): [...] 28, 2017 : 11:06 AM PAGER/CONTACT #: [facility] HOSPon 01-03-2017 Weight Patient:Reynaldo Hawkins RMRN: Height:5' 10.5"(1.791 m)Weight:209 lb (94.802 kg)Outpatient Medications as of 01/28/17:FLUoxetine (PROZAC) 20 mg capsulemirtazapine (REMERON) 30 mg tabletAdmission/Clinic Administered Medications as of 01/28/17:lactated ringers infusionProblem List:Special screening for malignant neoplasms, colon [Z12.11]Diarrhea [R19.7]Allergies:No Known AllergiesDate Verified:01/28/17Lab ValuesNo results within the last 30 days for the following basenames: K,HCTNo progress notes entered within the past 30 days [facility] Vital Signs Date Time Vital Sign Value Performing Clinician Ezekiel brown 12-11-2024 09:07-0400 Body weight 94.35 kg Marcelino Barahona DO Work Phone: [employer] 12-11-2024 09:07-0400 Diastolic blood pressure 93 mm[Hg] Marcelino Barahona DO Work Phone: [facility] 12-11-2024 09:07-0400 Heart rate 88 /min Marcelino Barahona DO Work Phone: [facility] [employer] 12-11-2024 09:07-0400 Systolic blood pressure 124 mm[Hg] Marcelino Barahona DO Work Phone: [facility] 08-19-2023 17:05-0400 Body temperature 97.52 [degF] KEREN GARCIA MD [facility] 08-19-2023 17:05-0400 Body weight 97.3 kg KEREN GARCIA MD [facility] 08-19-2023 17:05-0400 Diastolic Blood Pressure Non-Invasive 82 mm[Hg] KEREN GARCIA MD [facility] 08-19-2023 17:05-0400 Heart rate 67 /min KEREN GARCIA MD [facility] 08-19-2023 17:05-0400 Respiratory rate 16 /min KEREN GARCIA MD [facility] 08-19-2023 17:05-0400 Systolic Blood Pressure Non-Invasive 151 mm[Hg] KEREN GARCIA MD [facility] 06-28-2023 16:56-0500 Diastolic Blood Pressure Non-Invasive 75 mm[Hg] DR GINA HOWARD MD [facility] 06-28-2023 16:56-0500 Heart rate 60 /min DR GINA HOWARD MD [facility] 06-28-2023 16:56-0500 Reason For Taking VItal Signs DR GINA HOWARD MD [facility] 06-28-2023 16:56-0500 Respiratory rate 18 /min DR GINA HOWARD MD [facility] 06-28-2023 16:56-0500 Systolic Blood Pressure Non-Invasive 135 mm[Hg] DR GINA HOWARD MD [facility] 06-28-2023 15:37-0500 Body temperature 97.16 [degF] DR GINA HOWARD MD [facility] 06-28-2023 15:37-0500 Diastolic Blood Pressure Non-Invasive 77 mm[Hg] DR GINA HOWARD MD [facility] 06-28-2023 15:37-0500 Heart rate 64 /min DR GINA HOWARD MD [facility] 06-28-2023 15:37-0500 Respiratory rate 18 /min DR GINA HOWARD MD [facility] 06-28-2023 15:37-0500 Systolic Blood Pressure Non-Invasive 154 mm[Hg] DR GINA HOWARD MD [facility] Encounters Encounter Date Encounter Type Care Provider Facility Start: [facility] Start: 04-16-2025 ambulatory [facility] Facility: [facility] Start: 04-03-2025 End: 04-05-2025 ambulatory [facility] Facility:[facility] Start: 04-01-2025 End: 04-01-2025 ambulatory Anna Vega Facility[facility] Start: 03-21-2025 End: 03-21-2025 ambulatory Anna Vega Facility:[facility] Start: 02-22-2025 ambulatory Sebastián [place] Facility: [facility] Start: 02-20-2025 End: 02-20-2025 ambulatory Sebastián [place] Facility:[facility] Start: 02-13-2025 End: 02-13-2025 ambulatory Sebastián [place]su Facility:[facility] Start: 02-07-2025 End: 02-07-2025 ambulatory Sebastián Hsu Facility:[facility] Start: 02-06-2025 End: 02-06-2025 ambulatory Anna Vega Facility:[facility] Start: 01-30-2025 End: 01-30-2025 ambulatory Sebastián Hsu Facility:[facility] Start: 01-23-2025 End: 01-23-2025 ambulatory Sebastián Hsu Facility:[facility] Start: 01-22-2025 End: 01-22-2025 ambulatory Anna Vega Facility:[facility] Start: 01-16-2025 End: 01-16-2025 ambulatory Sebastián [place]su Facility:[facility] Start: 01-11-2025 ambulatory Anna Núñezko Facility: [facility] Start: 01-10-2025 ambulatory Anna Núñezko Facility: [facility] Start: 01-10-2025 End: 01-10-2025 ambulatory Anna Wiltonko Facility:[facility] Start: 01-09-2025 ambulatory Anna Núñezko Facility: [facility] Start: 01-08-2025 End: 01-08-2025 ambulatory Anna Núñezko Facility:[facility] Start: 01-07-2025 End: 02-03-2025 ambulatory Anna Wiltonko Facility:[facility] Start: 01-04-2025 ambulatory Anna Núñezko Facility: [facility] Start: 01-03-2025 End: 01-03-2025 ambulatory Anna Vega Facility:[facility] Start: 01-01-2025 End: 01-01-2025 ambulatory Anna Vega Facility:[facility] Start: 12-27-2024 End: 12-27-2024 ambulatory Anna Núñezko Facility:[facility] Start: 12-24-2024 End: 12-24-2024 ambulatory Anna Wiltonko Facility:[facility] Start: 12-20-2024 ambulatory Anna Halko Facility: [facility] Start: 12-19-2024 End: 12-19-2024 ambulatory Anna Halko Facility:[facility] Start: 12-12-2024 End: 12-12-2024 ambulatory ANNA WILTONKO DO Facility:[facility] Start: 12-12-2024 End: 12-12-2024 Patient encounter procedure ANNA WILTONCAREY DO [facility] Start: 12-11-2024 End: 12-11-2024 Office outpatient new 60 minutes Marcelino Barahona DO Work Phone: [facility] [place] Comment on above: Esophageal dysphagia (Primary Dx) Start: 12-11-2024 End: 12-11-2024 ambulatory ANNA VEGA [facility] Start: 12-05-2024 End: 12-05-2024 Emergency department patient visit Anna Vega Facility:[facility] Start: 12-03-2024 End: 12-03-2024 Emergency department patient visit AUDRA DIAZ DO [facility] Start: 12-01-2024 End: 12-01-2024 Emergency department patient visit Anna Vega Facility:[facility] Start: 11-30-2024 ambulatory Anna Vega Facility: [facility] Start: 11-30-2024 End: 11-30-2024 ambulatory Anna Vega Facility:[facility] Start: 11-22-2024 End: 11-22-2024 ambulatory ANNA WILTONKO DO [facility] Start: 11-22-2024 End: 11-22-2024 Patient encounter procedure ANNA WILTONKO DO [facility] Start: 11-20-2024 End: 11-20-2024 ambulatory ANNA WILTONKO DO Facility:[facility] Start: 11-20-2024 End: 11-20-2024 Patient encounter procedure ANNA WILTONKO DO [facility] Start: 10-23-2024 End: 10-23-2024 ambulatory Anna Vega Facility:[facility] Start: 07-31-2024 End: 07-31-2024 ambulatory Anna Wiltonko Facility:[facility] Start: 07-27-2024 End: 07-27-2024 ambulatory ANNA HALKO DO Facility:[facility] Start: 07-24-2024 End: 08-13-2024 ambulatory ANNA HALKO DO [facility] Start: 05-10-2024 End: 05-10-2024 ambulatory ANNA HALKO DO [facility] Start: 05-10-2024 End: 05-10-2024 Patient encounter procedure ANNA HALKO DO [facility] Start: 05-02-2024 End: 05-02-2024 ambulatory Paul Danyelle Pedroza Facility:[facility] Start: 02-14-2024 End: 02-14-2024 ambulatory ANNA HALKO DO Facility:[facility] [place] Start: 02-14-2024 End: 02-14-2024 Patient encounter procedure FELIZ ALEXANDER [employer]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 [facility] Start: 11-25-2023 End: 12-27-2023 ambulatory ANNA HALKO DO Facility:[facility] Start: 11-25-2023 End: 12-27-2023 Physical therapy management ANNA HALKO DO [facility] Start: 10-04-2023 End: 11-18-2023 Admission to same day surgery center PETAR CROW [facility] Start: 10-04-2023 End: 11-18-2023 ambulatory PETAR CROW Facility:[facility] Start: 08-19-2023 End: 08-19-2023 Emergency department patient visit KEREN GARCIA MD [facility] Start: 08-18-2023 End: 08-18-2023 ambulatory ANNA HALKO DO Facility:[facility] Start: 08-18-2023 End: 08-18-2023 Patient encounter procedure ANNA HALKO DO [facility] Start: 07-07-2023 End: 07-07-2023 ambulatory ANNA HALKO DO Facility:[facility] Start: 07-07-2023 End: 07-07-2023 Patient encounter procedure ANNA HALKO DO [facility] Start: 07-05-2023 End: 08-08-2023 ambulatory ANNA VEGA DO Facility:[facility] Start: 07-05-2023 End: 08-08-2023 Physical therapy management ANNA VEGA DO [facility] Start: 06-28-2023 End: 06-28-2023 Emergency department patient visit DR GINA HOWARD MD [facility] Start: 03-03-2023 End: 05-02-2023 Admission to same day surgery center JAY JAY SCANLON MD [facility] Start: 03-03-2023 End: 05-02-2023 ambulatory JAY JAY SCANLON MD Facility:[facility] Start: 02-28-2023 End: 03-01-2023 ambulatory JAY JAY SCANLON Mariano [facility] Start: 02-24-2023 End: 02-24-2023 ambulatory ANNA GARY PIERCE Facility:[facility] Start: 02-24-2023 End: 02-24-2023 Patient encounter procedure ANNA VEGA DO [facility] Start: 02-16-2023 End: 02-20-2023 ambulatory ANNA VEGA DO Facility:[facility] Start: 02-16-2023 End: 02-20-2023 Encounter for other preprocedural examination ANNA VEGA DO Facility:[facility] Start: 02-10-2023 End: 02-10-2023 ambulatory JAY JAY SCANLON Mariano [facility] Start: 10-08-2022 End: 10-08-2022 Patient encounter procedure ANNA VEGA DO [facility] Start: 07-24-2022 End: 07-24-2022 Patient encounter procedure ANNA VEGA DO [facility] Start: 05-19-2022 End: 06-15-2022 Physical therapy management ANNA VEGA DO [facility] [place] Start: 05-04-2022 End: 05-04-2022 Patient encounter procedure ANNA VEGA DO [facility] Start: 07-27-2021 End: 07-27-2021 Discharged [facility] Start: 04-18-2021 End: 04-18-2021 Patient encounter procedure ANNA VEGA DO [facility] Start: 01-28-2017 End: 01-28-2017 Ambulatory [facility] Procedures Date Procedure Procedure Detail Performing Clinician Start: 01-21-2014 Other (qualifier value) ANNA VEGA DO Comment on above: septoplasty, Dr. Seferino farley, [facility] Start: 08-03-2013 Ankle region structu re (body structure) ANNA VEGA DO Comment on above[facility] s/p fracture medial malleolus Start: 06-06-2007 [...] Care Activity Detail Author Start: 02-06-2032 DTaP/Tdap/Td Vaccine s (3 - Td or Tdap) DTaP/Tdap/Td Vaccines (3 - Td or Tdap) [facility] [employer] Start: 02-04-2025 Influenza vaccination Influenza Vacc ine (#1) [facility] Start: 02-05-2024 COVID-19 Vaccine ( season) COVID-19 Vaccine ( season) [facility] Start: 04-12-2021 Pneumococcal Vaccine : 50+ Years (2 of 2 - PPSV23) Pneumococcal Vaccine: 50+ Years (2 of 2 - PPSV23) [facility] Start: 2020 RSV Immunization for Adults (1 - Risk 60-74 years 1-dose series) RSV Immunization for Adults (1 - Risk 60-74 years 1-dose series) [facility] Start: 1978 Diabetes mellitus screening Diabetes Screening [facility] Start: 1978 Hepatitis C screening Hepatitis C Sc reening [facility] Start: 1972 Depression Monitoring Depression Mon itoring [facility] Start: 1961 MMR Vaccines (1 of 1 - Standard series) MMR Vaccines (1 of 1 - Standard series) [facility] Start: 1960 Annual wellness visit Medicare Initial Physical (IPPE) [facility] Start: 1960 HIV screening HIV Screening [facility] Start: 1960 Lipid panel Lipid Panel [facility] Start: 1960 Screening for malign ant neoplasm of colon [facility] Immunizations Immunization Date Immunization Notes Care Provider Fa cility 03-02-2024 influenza, injectabl e, quadrivalent, contains preservative; Translations: [Fluarix PF Prefilled Syringe ] ANNA VEGA DO [facility] 03-02-2024 influenza virus vaccine, unspecified formulation Marcelino Barahona DO Work Phone: [facility] 03-26-2022 COVID-19, mRNA, LNP- S, bivalent booster, PF, 30 mcg/0.3 mL dose; Translations: [Pfizer-BioNTech COVID-19 (12y+) Bivalent Booster Vaccine PF] ANNA VEGA DO [facility] 03-26-2022 SARSCoV2 mRNA(qrrouutymym35w+)b ival vac; Translations: [Pfizer-BioNTech COVID-19 (12y+) Bivalent Booster Vaccine PF] DR GINA HOWARD MD [facility] 03-06-2022 influenza virus vaccine, unspecified formulation ANNA VEGA DO [facility] Comment on above: Result Comment: at [facility] 02-05-2022 tetanus toxoid, reduced diphtheria toxoid, and acellular pertussis vaccine, adsorbed; Translations: [Boostrix (Tdap)] ANNA VEGA DO [facility] 04-13-2021 COVID-19, mRNA, LNP- S, PF, 100 mcg/ 0.5 mL dose; Translations: [Moderna COVID-19 Vaccine] ANNA VEGA DO [facility] 03-06-2021 influenza virus vaccine, unspecified formulation ANNA VEGA DO [facility] Comment on above: Result Comment: at [facility] 10-04-2020 SARS-CoV-2 (COVID-19 ) mRNA-1273 vaccine ANNA VEGA DO [facility] Comment on above: Result Comment: [facility] 09-06-2020 SARS-CoV-2 (COVID-19 ) mRNA-1273 vaccine ANNA VEGA DO [facility] Comment on above: Result Comment: [facility] 04-12-2020 pneumococcal conjuga te vaccine, 13 valent ANNA VEGA DO [facility] Comment on above: Result Comment: [facility] 04-12-2020 zoster vaccine recombinant ANNA NÚÑEZCAREY DO [facility] Comment on above: Result Comment: [facility] 02-08-2020 zoster vaccine recombinant ANNA VEGA DO [facility] 04-06-2015 influenza virus vaccine, unspecified formulation ANNA VEGA DO [facility] 02-04-2014 influenza virus vaccine, unspecified formulation ANNA VEGA DO [facility] 01-21-2014 Influenza virus vaccine [facility] Work Phone: 06-06-2013 influenza virus vaccine, unspecified formulation ANNA VEGA DO [facility] 03-31-2010 tetanus toxoid, reduced diphtheria toxoid, and acellular pertussis vaccine, adsorbed ANNA VEGA DO [facility] Payers Date Payer Category Payer Unknown 2025 Medicare [id number] 2025 Private Health Insurance [id number] 2024 Commercial [facility] MMO SUPERMED [id number] 2024 Self-pay [id number] 2023 Unknown [id number] 2022 Private Health Insurance [id number] 1960 Unknown [id number] 2.16.840.1.653999.3.579.2. 627 1960 Unknown [id number] 2.16.840.1.612185.3.579.2. 627 1960 Unknown [id number] 2.16.840.1.935186.3.579.2. 627 1960 Unknown [id number] 2.16.840.1.809521.3.579.2. 627 1960 Unknown [id number] 2.16.840.1.503939.3.579.2. 627 1960 Unknown [id number] 2.16.840.1.385793.3.579.2. 627 1960 Unknown [id number] 2.16.840.1.538543.3.579.2. 627 1960 Unknown [id number] 2.16.840.1.804201.3.579.2. 627 1960 Unknown [id number] 2.16.840.1.757145.3.579.2. 627 1960 Unknown [id number] 2.16.840.1.962522.3.579.2. 627 1960 Unknown [id number] 2.16.840.1.148558.3.579.2. 627 1960 Unknown [id number] 2.16.840.1.609342.3.579.2. 627 1960 Unknown [id number] 2.16.840.1.744420.3.579.2. 627 1960 Unknown [id number] 2.16.840.1.319485.3.579.2. 627 1960 Unknown [id number] 2.16.840.1.155489.3.579.2. 627 1960 Unknown [id number] 2.16.840.1.107309.3.579.2. 627 1960 Unknown [id number] 2.16.840.1.516669.3.579.2. 627 1960 Unknown [id number] 2.16.840.1.014568.3.579.2. 627 1960 Unknown [id number] 2.16.840.1.446927.3.579.2. 651 1960 Unknown [id number] 2.16.840.1.821298.3.579.2. 651 Unknown SELF PAY INSURANCE [id number] Unknown [id number] 2.16.840.1.386287.3.579.2. 462 Unknown [id number] 2.16.840.1.574197.3.579.2. 462 Unknown [id number] 2.16.840.1.472603.3.579.2. 462 Unknown [id number] 2.16.840.1.478946.3.579.2. 462 Unknown [id number] 2.16.840.1.632013.3.579.2. 462 Unknown [id number] 2.16.840.1.588113.3.579.2. 462 Unknown [id number] 2.16.840.1.669656.3.579.2. 462 Unknown [id number] 2.16.840.1.069807.3.579.2. 462 Unknown [id number] 2.16.840.1.047398.3.579.2. 462 Unknown [id number] 2.16.840.1.025217.3.579.2. 462 Unknown [id number] 2.16.840.1.849083.3.579.2. 462 Unknown [id number] 2.16.840.1.887984.3.579.2. 462 Unknown [id number] 2.16.840.1.158241.3.579.2. 462 Unknown [id number] 2.16.840.1.356879.3.579.2. 462 Unknown [id number] 2.16.840.1.552230.3.579.2. 462 Unknown [id number] 2.16840.1.282177.3.579.2. 462 Unknown [id number] 2.16.840.1.834433.3.579.2. 462 Unknown [id number] 2.840.1.204116.3.579.2. 462 Unknown [id number] 2.840.1.024897.3.579.2. 462 Unknown [id number] 2.840.1.381636.3.579.2. 462 Unknown [id number] 2.840.1.381065.3.579.2. 462 Unknown [id number] 2.840.1.345073.3.579.2. 462 Unknown [id number] 2.840.1.986797.3.579.2. 462 Unknown [id number] 2.840.1.596662.3.579.2. 462 Unknown [id number] 2.840.1.244750.3.579.2. 462 Unknown [id number] 2.840.1.353666.3.579.2. 462 Unknown [id number] 2.840.1.414264.3.579.2. 462 Unknown [id number] 2.840.1.962595.3.579.2. 462 Unknown [id number] 2.840.1.961221.3.579.2. 462 Unknown [id number] 2.16840.1.513948.3.579.2. 462 Unknown [id number] 2.16.840.1.483008.3.579.2. 462 Unknown [id number] 2.16.840.1.302220.3.579.2. 462 Unknown [id number] 2.16.840.1.937887.3.579.2. 462 Unknown [id number] 2.16.840.1.281102.3.579.2. 462 Unknown [id number] 2.16.840.1.477527.3.579.2. 462 Unknown [id number] 2.16.840.1.686434.3.579.2. 462 Unknown [id number] 2.16.840.1.080582.3.579.2. 462 Unknown [id number] 2.16.840.1.924256.3.579.2. 462 Unknown [id number] 2.16.840.1.624156.3.579.2. 462 Unknown [id number] 2.16.840.1.219027.3.579.2. 462 Unknown [id number] 2.16.840.1.121082.3.579.2. 462 Unknown [id number] 2.16.840.1.845748.3.579.2. 462 Unknown [id number] 2.16.840.1.073604.3.579.2. 462 Unknown [id number] 2.16.840.1.603093.3.579.2. 462 Social History Date Type Detail Facility Start: 02-13-2019 End: 12-03-2024 Never smoked tobacco (finding) [facility] Sex Assigned At [facility] Start: 01-23-2014 Tobacco smoking stat [facility] Unknown if ever smoked [facility] Work Phone: Start: 01-21-2014 [facility]: Start: 01-21-2014 With Family [facility] Work Phone: Start: 01-21-2014 Non-smoker [facility] Work Phone: Start: 1960 Sex Assigned At Male [facility] Work Phone: Start: 07-15-2005 End: 01-04-2022 Sex Male (finding) [facility] Start: 12-11-2024 Tobacco use and exposure Smokeless tobacco non-user [facility] Start: 12-11-2024 Alcoholic beverage intake Ex-drinker (finding) [facility] Start: 12-11-2024 History of Social function [facility] Start: 12-11-2024 Tobacco use panel [facility] Start: 1960 Sex assigned at Not on file S [facility] Functional Status Date Assessment Result Facility 11-25-2023 [...] UE symptoms with neck ROM all planes Pediatric Medical Assistant strength: 85lbs R, 90Lbs L Thoracic mobility: marked stiffness with accessory mobility assessment with report of positive response to assessment [facility] 10-04-2023 Functional Status Home Living Ad ditional [...] with alisha hose AROM: 30-85 PROM: 9-88 [facility] 08-19-2023 Functional Status ID band on, Call device within reach, Bed in low position, Wheels locked, Visitor at bedside [facility] 06-28-2023 Functional Status ID band on, Call device within reach, Bed in low position, Wheels locked, Upper/Half-Length side-rails up, Bedside Cart Locked, Visitor at bedside, Safety level maintained [facility] 06-28-2023 Functional Status Scottie Stevie gonzalez [facility] 03-03-2023 Functional Status Home Living Ad ditional [...] compliant with alisha hose AROM: 32-83 PROM: 10-65 [facility] 05-19-2022 Functional Status Home Living Ad ditional [...] line tendernes son the L is noted. [facility] Mental Status Date Assessment Result Facility 08-19-2023 Mental Status Oriented x 4 [facility] 06-28-2023 Mental Status Orientation Foll ows simple commands, Other: pt has developmental delay [facility] Clinical Notes 04-25-2023 to 01-10-2025 Marcelino Barahona DO - 12/11/2024 9:00 AM EDT Note Date & Type Note Facility 01-10-[address] [facility] 01-01-[address] [facility] 12-18-2024 Note Orders Placed This E ncounter Procedures External referral to Oncology Standing Status: Future Expected Date: 12/18/2024 Expiration Date: 06/20/2025 Referral Priority: Routine Referral Type: Consultation Referral Reason: Specialty Services Required Requested Specialty: Oncology Number of Visits Requested: 1 [facility] 12-11-2024 History of Present illness Narrative Images from the original note were not included. [facility] [address] [facility] [address] Dept: [phone] Dept Loc: [phone] Visit type: New Reason for Visit: Dysphagia, [...] scheduled for a PET scan tomorrow in [place] so my suspicion is that this did [...] PET scan appointment tomorrow. He lives in [place] and [facility] is much closer to him than [place], so we will plan for referral to medical and radiation oncology in [place]. After completion of PET and obtaining his [...] and time. Labs No results found for: "WBC", "HGB", "PLT", "NA", "K", CREATININE Imaging CT Abd/Pelvis 12/03/24 CXR 12/03/24 [...] the patient's care, counseling/educating the patient, ordering prescriptions/medications/tests/ procedures, interpreting results and documenting clinical information in the patient's electronic health record on the day of the encounter. Electronically signed by Marcelino Barahona DO, MS, FACDYLON Patient Care Team: Anna Vega DO as [...] This note may have been dictated using [employer] Practice Edition 2.6 and/or [employer]ical Voice Recognition Feature. The document was proofread, however unrecognized voice recognition treasurer errors may be present. [1] Past Medical [...] 2 times daily., Disp: , Rfl: HYDROcodone-acetaminophen ([place]) 5-325 MG tablet, Take 1 tablet by [...] Disp: , Rfl: documented in this encounter [facility] 12-03-2024 Hospital Discharge instructions Patient Education 12/03/2024 [...] of blood present in vomit or stool [id number] [facility]. [address] [place] [address]. All rights reserved. This information is not [...] Black, tarry stool Involuntary weight loss Weakness [id number] [facility]. [address] [place] [address]. All rights reserved. This information is not intended as a substitute for professional medical care. Always follow your healthcare professional's instructions. Follow Up Care 12/03/2024 01:51:58 With:CAR WOODSON DO Address: [address] [place] [address] [place] [address]- [phone] When:2-4 days With:ANNA VEGA DO Address: [address] [place] [phone] [phone] When:2-4 days [facility] [facility] Note Discharge Instructions Thank you for allowing [facility] to assist you with your healthcare needs. The following is important discharge information regarding your hospital visit. Diagnosis from Today's Visit Epigastric pain What to Do Next Instructions from Your Care Team No qualifying data available. Post Acute Orders No qualifying data available. You Need to Schedule the Following Appointments Follow Up with CAR WOODSON DO When:Within 2-4 days Where:[facility] Angel [place] [address]- [phone] Follow Up with ANNA VEGA DO When:Within 2-4 days Where:[address] [place] [phone]- [phone] Allergies NKA Medications Please ask your primary doctor or pharmacist before taking any other medication not listed, including over the counter drugs, herbal medications, vitamins and or supplements as they may interact with your home medications. What How Much When Why Instructions Last Dose New acetaminophen-hydrocodone ([place] 325- 5 mg oral tablet) 1 tab(s) [...] of blood present in vomit or stool [phone] [facility]. [address] [place] [address]. All rights reserved. This information is not [...] Black, tarry stool Involuntary weight loss Weakness [phone] [facility]. [address] [place] [address], [place] [address]. All rights reserved. This information is not intended as a substitute for professional medical care. Always follow your healthcare professional's instructions. Additional Information VACCINATE! IT SAVES LIVES! Members of the community who have not yet received the COVID-19 vaccine and would like to receive it can visit one of [facility] vaccine clinics. There are many vaccine clinic locations within the [facility]. For locations and available times, please visit www.gettheshot.coronavirus.[place]. gov/. It is important to note that some COVID mobile vaccine clinics are held outdoors and may be canceled in rainy or stormy conditions. To learn more about pediatric vaccinations (ages 5-11), we invite you to visit the [facility] webpage. https://www.[facility].org/p ages/2215-Odesw-Mneoctvxobh-Freq fixyeq-Xmtlg-Urddscffj.html To learn more about the COVID-19 vaccine, we invite you to visit the CDC website for a list of frequently asked questions. https://www.cdc.gov/coronavirus/ 2019-ncov/vaccines/faq.html [facility] Patient Portal Access Instructions: Stay connected with your healthcare team and access your personal medical information anytime with the [facility] Patient Portal. If you would like a full copy of your medical records please contact the [facility] Medical Records Department Tuesday through Tuesday between 8a.m. and 4:30p.m. Please follow the directions below to access the portal: 1.Access the email account you provided upon registration to the hospital.2.Look for an invitation email from [facility].3.Open the email and access the invitation link: Accept Invitation to [facility]4.Fill in the required lugo to create your account. Sign into [email or web address] with your username and password that you [...] you will allow to register on the [facility] Patient Portal for access to your information. You can also access the [facility] Patient Portal on the FanKave. Simply click on "Health Records" under "Health Data" and then click on the [employer] logo. HOW TO SAFELY DISPOSE OF PRESCRIPTION [...] Call your local pharmacy or go to [email or web address].[email or web address] to find one close to you.3.Make use of household items: Use cat litter or old coffee grounds to dispose medications if other options are not available. Mix your drugs with these household products, seal them in an airtight container and throw it into the garbage. Call [facility]: [phone] to be sure your drugs can be [...] aware that I should contact my doctor. Patient/Audit Senior Associate Signature: Date/Time: Relationship to Patient: Witness Name/Signature: Date/Time: [facility] 12-03-2024 Note Exam Date Time Procedure Performing Provider Status 12/03/24 3:[address] Abd/Pelvis w/ IV Contrast Only MIKO SEQUEIRA MD; Auth (Verified) [id number] ORIGINAL EXAMINATION: CT OF THE ABDOMEN AND [...] 12/03/2024 3:27:01 AM Ordering Provider: AUDRA DIAZ [facility]06-30-2025 Note* Exam Date Time Procedure Performing Provider Status 12/03/24 3:13 AM XR Chest 1 View MIKO SEQUEIRA MD; Auth (Verified) [id number] ORIGINAL EXAMINATION: ONE XRAY VIEW OF THE [...] Date: 12/03/2024 3:20:52 AM Ordering Provider: AUDRA MARGARITAMICHAEL [facility]06-30-2025 Note* Exam Date Time Procedure Performing Provider Status 12/03/24 1:56 AM EKG [ED AOH] - CV AUDRA DIAZ DO ; Auth (Verified) ECG Final Report Sinus tachycardia Ventricular trigeminy Right bundle branch block Repol abnrm suggests ischemia, diffuse leads BORDERLINE ECG Electronic Signature: AUDRA DIAZ DO 12/03/2024 02:07:53 [facility]06-27-2025 [facility] 11-30-2024 [facility]06-19-2025 Note* Exam Date Time Procedure Performing Provider Status 11/22/24 8:54 AM XR Esophogram w/Barium Tablet ANNA OCAMPO MD; Auth (Verified) [id number] ORIGINAL EXAMINATION: Double CONTRAST ESOPHAGRAM 11/22/2024 HISTORY: [...] obtained. FINDINGS: Esophagus is diffusely dilated on sales development coordinator image. Barium tablet does not pass through [...] Date: 11/22/2024 9:42:24 AM Ordering [facility]: [facility]-17-[facility] Note* Exam Date Time Procedure Performing Provider Status 11/20/24 12:52 PM XR Swallowing Function M odified [id number] ORIGINAL Images acquired, not reported on this accession number. [id number] Discharge instructions Patient Education 08/19/2023 17:28:38 [...] alternate ice and heat. You may use hkxx-crh-giprebc pain medicine to control pain, unless another [...] numb, or tingly Pain or swelling increases [phone] [facility]. [address] [place] [address], [place] [address]. All rights reserved. This information is not intended as a substitute for professional medical care. Always follow yourhealthcare professional's instructions. Follow Up Care 08/19/2023 16:54:28 With:ANNA VEGA DO Address: [address] [place] [phone]- [phone] When:2-4 days [facility] 03-15-2024 Note Discharge Instructions Thank you for allowing [facility] to assist you with your healthcare needs. [...] VEGA DO When Within 2-4 days Where: [address] [place] [address]- [phone] Allergies NKA Medications Please ask your primary [...] alternate ice and heat. You may use yshb-xfo-bqzqcrq pain medicine to control pain, unless another [...] numb, or tingly Pain or swelling increases [phone] [facility]. [address] [place] [address]. All rights reserved. This information is not intended as a substitute for professional medical care. Always follow yourhealthcare professional's instructions. Additional Information VACCINATE! IT SAVES LIVES! Members of the community who have not yet received the COVID-19 vaccine and would like to receive it can visit one of [facility] vaccine clinics. There are many vaccine clinic locations within the [facility]. For locations and available times, please visit www.gettheshot.coronavirus.[place].gov/. It is important to note that some COVID mobile vaccine clinics are held outdoors and may be canceled in rainy or stormy conditions. To learn more about pediatric vaccinations (ages 5-11), we invite you to visit the [facility] webpage. https://www.[facility].org/pages/7373-Jzxts-Akbgvvpmwra-Rpecflgefn-Qnbhh-Lcn stions.htmlTo learn more about the COVID-19 vaccine, we invite you to visit the CDC website for a list of frequently asked questions. https://www.cdc.gov/coronavirus/2019-ncov/vaccines/faq.html [facility] Patient Portal Access Instructions: Stay connected with your healthcare team and access your personal medical information anytime with the [facility] Patient Portal. If you would like a full copy of your medical records please contact the [facility] Medical Records Department Tuesday through Tuesday between 8a.m. and 4:30p.m. Please follow the directions below to access the portal: 1.Access the email account you provided upon registration to the [facility].2.Look for an invitation email from [facility].3.Open the email and access the invitation link: Accept Invitation to [facility]4.Fill in the required lugo to create your account. Sign into [email or web address] with your username and password that you [...] you will allow to register on the [facility] Patient Portal for access to your information. You can also access the [facility] Patient Portal on the [employer] daija. Simply click on "Health Records" under "HealthData" and then click on the [facility] logo. HOW TO SAFELY DISPOSE OF PRESCRIPTION [...] Call your local pharmacy or go to http://bit.[employer]/5T6Nb3g to find one close to you.3.Make use of household items: Use cat litter or old coffee grounds to dispose medications if other options arenot available. Mix your drugs with these household products, seal them in an airtight container andthrow it into the garbage. Call [facility]: [phone] to be sure your drugs can be [...] aware that I should contact my doctor. Patient/Audit Senior Associate Signature: Date/Time: Relationship to Patient: Witness Name/Signature: Date/Time: [facility]02-02-2024 Evaluation + Plan note Future Scheduled Tests Radiology* MRI Spine Cervical w/o Contrast 07/08/23 [facility] 01-23-2024 Hospital Discharge instructions Patient Education 06/28/2023 [...] arm gets worse Trouble breathing or swallowing [phone] [facility]. [address] [place] [address], [place] [address]. All rights reserved. This information is not intended as a substitute for professional medical care. Always follow yourhealthcare professional's instructions. Follow Up Care 06/28/2023 15:35:14 With:ANNA VEGA DO Address: [address] [place] [phone]- [phone] When:2-4 days Comments:Return to ED if symptoms worsen With:Keep your appointment as scheduled with orthopedic spine. Address:Unknown When:2-4 days [facility] 01-23-2024 Emergency department Discharge summary Discharge Instructions Thank you for allowing [facility] to assist you with your healthcare needs. [...] Return to ED if symptoms worsen Where: [address] [place] [phone]- [phone] Follow Up with Keep your appointment as scheduled with orthopedic spine. When Within 2-4 days Allergies NKA Medications Please ask your primary doctor or pharmacist before taking any other medication not listed, including over the counter drugs, herbal medications, vitamins and or supplements as they may interact [facility] medications. What How Much When Why [...] arm gets worse Trouble breathing or swallowing [phone] [facility]. [address] [place] [address]. All rights reserved. This information is not intended as a substitute for professional medical care. Always follow yourhealthcare professional's instructions. Additional Information VACCINATE! IT SAVES LIVES! Members of the community who have not yet received the COVID-19 vaccine and would like to receive it can visit one of [facility] vaccine clinics. There are many vaccine clinic locations within the [facility]. For locations and available times, please visit www.gettheshot.coronavirus.[place].gov/. It is important to note that some COVID mobile vaccine clinics are held outdoors and may be canceled in rainy or stormy conditions. To learn more about pediatric vaccinations (ages 5-11), we invite you to visit the [facility] webpage. https://www.[facility].org/pages/9257-Xbmls-Rptfxlzujut-Uxibcovvvr-Qftgc-Pih stions.htmlTo learn more about the COVID-19 vaccine, we invite you to visit the CDC website for a list of frequently asked questions. https://www.cdc.gov/coronavirus/2019-ncov/vaccines/faq.html [facility] Patient Portal Access Instructions: Stay connected with your healthcare team and access your personal medical information anytime with the [facility] Patient Portal. If you would like a full copy of your medical records please contact the [facility] Medical Records Department Tuesday through Tuesday between 8a.m. and 4:30p.m. Please follow the directions below to access the portal: 1.Access the email account you provided upon registration to the [facility].2.Look for an invitation email from [facility].3.Open the email and access the invitation link: Accept Invitation to [facility]4.Fill in the required lugo to create your account. Sign into [email or web address] with your username and password that you [...] you will allow to register on the [facility] Patient Portal for access to your information. You can also access the [facility] Patient Portal on the Contentful daija. Simply click on "Health Records" under "HealthDaMyCrowd" and then click on the [facility] logo. [...] Call your local pharmacy or go to http://bit.ly/2C6Hi7r to find one close to you.3.Make use of household items: Use cat litter or old coffee grounds to dispose medications if other options arenot available. Mix your drugs with these household products, seal them in an airtight container andthrow it into the garbage. Call [facility]: [phone] to be sure your drugs can be [...] aware that I should contact my doctor. Patient/Audit Senior Associate Signature: Date/Time: Relationship to Patient: Witness Name/Signature: Date/Time: [facility]01-23-2024 Note ORIGINAL EXAMINATION: CT OF THE CERVICAL [...] Sign Date: 06/28/2023 7:25:48 PM [facility] NAME ACCOUNT SEX AGE ADMIT DISCHARGE PT MED. RECORD# NUMBER DATE DATE TYPE MISAEL HAWKINS [id number] 02/28/23 2 R [id number] ROOM: [facility] DATE OF : 1960 ATTENDING PHYSICIAN: Petar Kumar PROGRESS NOTE/DISCHARGE SUMMARY ATTENDING ORTHOPEDIC SURGEON: Dr. Jay Jay Scanlon. DATE OF ADMISSION: February 28, 2023 ESTIMATED [...] be doing well Page 1 of 2 MISAEL HAWKINS Discharge Summary MISAEL HAWKINS : 1960 overall. PHYSICAL EXAMINATION: Vitals: [...] is interested in being discharged to a ch[facility] facility. I explained that our goal is for him to succeed in physical therapy and be discharged home. He understands that if he does well in physical therapy that his insurance company likely will not cover a stay with a chcf facility. He understands the risks associated with being discharged to a chcf facility. He will further review these options [...] Petar Kumar PA-C 03/01/23 07:39 JOB #: [id number] Transcribed By: mervat 03/01/23 08:31 Electronically signed by: E-sign Petar CROW 04/25/23 10:17 Page 2 of 2 [facility] Future Appointments Appointment Date:07/13/2021 04:00:00 PM Scheduled Provider:ANNA VEGA DO Location:[facility] Appointment Type: OV Future Scheduled Tests Laboratory* Prostate Specific Antigen 08/12/20 * A1C Hemoglobin 05/27/21 * Complete Blood Count 05/27/21 * Hepatitis C Antibody IgG 08/12/20 * Complete Metabolic Panel 05/27/21 Radiology* XR Knee 3 Views Left 04/13/21 * XR Knee 3 Views Right 04/13/21 * XR Shoulder Minimum 2 Views Left 04/13/21 * XR Shoulder Minimum 2 Views Right 04/13/21 [facility] Evaluation + Plan note Future Appointments Appointment Date:05/07/2022 08:30:00 AM Scheduled Provider:ANNA VEGA DO Location:[facility] Appointment Type:PC OV Appointment Date:07/30/2022 10:00:00 AM Scheduled Provider:ANNA VEGA DO [facility]oint[facility] Type:PC OV Future Scheduled Tests Laboratory* Rubella Antibody 01/29/22 * A1C Hemoglobin 05/27/21 * Complete Blood Count 05/27/21 * Hepatitis C Antibody IgG 07/13/21 * Mumps Antibody 01/29/22 * Rubeola IgG Antibody 01/29/22 * Complete Metabolic Panel 05/27/21 [facility] Evaluation + Plan note Future Appointments Appointment Date:07/30/2022 04:15:00 PM Scheduled Provider:ANNA VEGA DO Location:[facility] Appointment Type:PC OV Future Scheduled Tests Laboratory* Prostate Specific Antigen 05/07/22 * A1C Hemoglobin 05/27/21 * A1C Hemoglobin 05/07/22 * Complete Blood Count 05/27/21 * Complete Blood Count 05/07/22 * Lipid Profile 05/07/22 * Complete Metabolic Panel 05/27/21 * Complete Metabolic Panel 05/07/22 [facility] evaluation + Plan note Future Appointments Appointment Date:08/05/2022 04:30:00 PM Scheduled Provider:ANNA VEGA DO [facility] Appointment Type:PC OV [facility] evaluation + Plan note Future Appointments Appointment Date:01/06/2023 04:30:00 PM Scheduled Provider:ANNA VEGA DO [facility] Appointment Type:PC OV Diagnostic Tests Pending * Lyme AB Early Disease 10/08/22 * Lyme Disease PCR 10/08/22 [facility] Evaluation + Plan note Future Appointments Appointment Date:05/04/2023 04:30:00 PM Scheduled Provider:ANNA VEGA DO [facility] Appointment Type:PC OV [facility] evaluation + Plan note Future Appointments Appointment Date:07/18/2023 05:00:00 PM Scheduled Provider:ANNA VEGA DO [facility] Appointment Type:PC OV [facility] Evaluation + Plan note Future Appointments Appointment Date:07/08/2023 11:30:00 AM Scheduled Provider: Location:[facility] Appointment Type:PT Treatment - [place] Appointment Date:07/12/2023 01:30:00 PM Scheduled Provider: Location:[facility] Appointment Type:PT Treatment - [place] Appointment Date:07/13/2023 01:00:00 PM Scheduled Provider:ANNA VEGA DO Location[facility] Appointment Type:PC OV Appointment Date:07/14/2023 11:00:00 AM Scheduled Provider: Location:[facility] Appointment Type:PT Treatment - [place] Appointment Date:07/18/2023 05:00:00 PM Scheduled Provider:ANNA VEGA DO Location:[facility] Appointment Type:PC OV Appointment Date:07/19/2023 11:00:00 AM Scheduled Provider: Location:[facility] Appointment Type:PT Treatment [facility] Appointment Date:07/22/2023 02:30:00 PM Scheduled Provider: Location:[facility] Appointment Type:PT [facility] Future Scheduled Tests Radiology* MRI Spine Cervical w/o Contrast 07/08/23 [facility] Evaluation + Plan note Future Appointments Appointment Date:08/17/2023 11:30:00 AM Scheduled Provider:ANNA VEGA DO Location:[facility] Appointment Type:PC OV Future Scheduled Tests Radiology* MRI Spine Cervical w/o Contrast 07/08/23 [facility] Evaluation + Plan note Future Appointments Appointment Date:09/23/2023 10:00:00 AM Scheduled Provider:ANNA VEGA DO Location:[facility] Appointment Type:PC OV Appointment Date:11/16/2023 10:30:00 AM Scheduled Provider:ANNA VEGA DO Location:[facility] Appointment Type:PC OV Future Scheduled Tests Radiology* MRI Spine Cervical w/o Contrast 07/08/23 [facility] evaluation + Plan note Future Appointments Appointment Date:11/25/2023 09:00:00 AM Scheduled Provider: Location:[facility] Appointment Type:PT Outpatient Evaluation Appointment Date:12/29/2023 01:30:00 PM Scheduled Provider:ANNA VEGA DO Location:[facility] Appointment Type:PC OV Future Scheduled Tests Radiology* MRI Spine Cervical w/o Contrast 07/08/23 [facility] Evaluation + Plan note Future Appointments Appointment Date:12/29/2023 01:30:00 PM Scheduled Provider:ANNA VEGA DO Location:[facility] Appointment Type:PC OV Future Scheduled Tests Radiology* MRI Spine Cervical w/o Contrast 07/08/23 [facility] Evaluation + Plan note Future Appointments Appointment Date:03/02/2024 01:30:00 PM Scheduled Provider:ANNA VEGA DO Location:[facility] Appointment Type:PC Wellness Annual Future Scheduled Tests Radiology* MRI Spine Cervical w/o Contrast 07/08/23 [facility] Evaluation + Plan note Future Appointments Appointment Date:05/25/2024 10:30:00 AM Scheduled Provider:ANNA VEGA DO Location:[facility] Appointment Type:PC OV Future Scheduled Tests Radiology* MRI Spine Cervical w/o Contrast 07/08/23 [facility] Evaluation + Plan note Future Appointments Appointment Date:11/22/2024 08:45:00 AM Scheduled Provider: Location:[facility] Appointment Type:XR Esophogram W/Barium Tablet Appointment Date:01/02/2025 10:00:00 AM Scheduled Provider:ANNA VEGA DO Location:[facility] Appointment Type:PC OV Future Scheduled Tests Radiology* XR Esophogram W/Barium Tablet 11/22/24 [facility] evaluation + Plan note Future Appointments Appointment Date:01/02/2025 10:00:00 AM Scheduled Provider:ANNA VEGA DO Location:[facility] Appointment Type:PC OV [facility] evaluation + Plan note Future Appointments Appointment Date:01/02/2025 10:00:00 AM Scheduled Provider:ANNA VEGA DO Location:[facility] Appointment Type:PC OV Future Scheduled Tests Radiology* PET/CT Initial Staging 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 12/03/24 [facility] Evaluation noteNo assessment information available [facility] Work Phone: Evaluation note* Diagnosis Esophageal dysphagia- Primary Dysphagia, pharyngoesophageal phase [facility] N[facility]ative No data available for this section [facility] Hospital Discharge instructions No data available for this section [facility] Progress note No data available for this section [facility] Summary Purpose Family History No Family History [...] January 23 201 4 1:59pm Power of I&C Technician No January 23, 2 014 1:59pm Chief Complaint and Reason for Visit Chief Complaint SP Additional Source Comments (unrecognized sect ion and content) No Status Records FoundNo Status Records FoundNo Status Records FoundNo Status Records FoundNo Status Records FoundNo Status Records FoundNo Status Records FoundNo Status Records Found INFORMATION SOURCE (unrecogn ized section and content) DATE CREATED AUTHOR 11/30/2017 [facility] DATE CREATED AUTHOR AUTHOR'S ORGANIZ ATION 04/26/2023 [facility] DATE CREATED AUTHOR AUTHOR'S ORGANIZ ATION 12/30/2023 [facility] DATE CREATED AUTHOR AUTHOR'S ORGANIZ ATION 12/09/2024 [facility] DATE CREATED AUTHOR AUTHOR'S ORGANIZ ATION 12/20/2024 [facility] DATE CREATED AUTHOR AUTHOR'S ORGANIZ ATION 12/22/2024 [facility] DATE CREATED AUTHOR AUTHOR'S ORGANIZ ATION 02/15/2025 [facility] DATE CREATED AUTHOR AUTHOR'S ORGANIZ ATION 04/15/[address] [facility] Goals (unrecognized section and content) Goals may be documented in a n alternate section Care Team (unrecognized sect ion and content) Care Team Personnel Name: ANNA VEGA DO Position: P4 Physician - Primary Care Member Role: Primary Care Physician Address: Address: [address] [place] [address]- Care Team Related Persons Name: NASIR HAWKINS Address: [address] [place] [id number] Care Team Personnel Name: ANNA VEGA DO Position: P4 Physician - Primary Care Member Role: Primary Care Physician Address: Address: [address] [place] [address] Care Team Related Persons Name: NASIR HAWKINS Address: Home [address] [place] [id number] Care Team Personnel Name: ANNA VEGA DO Position: P4 Physician - Primary Care Member Role: Primary Care Physician Address: Address: [address] [place] [address] Care Team Related Persons Name: NASIR HAWKINS Address: Home [address] [place] [id number] Patient Care team informatio n (unrecognized section and content) Director Of Rehabilitative Services Relationship Specialty Start Date End Date Anna Vega DO [address] [place] [address] PCP - General Family Medicine 12/11/24 Reason [...] BE BASED ON THE PRIMARY CLINICAL RECORDS. [facility]. provides no warranty or guarantee of the accuracy or completeness of information in this document.
[2025-04-22] MEDS: Lactated Ringers 1,000 ML 15 ML IV (07:54)
--- NOTE | 2025-04-22 08:23 | PRE.ANES_ITS ---
ASA Classification* ASA Classification ASA Classification: 3 Assessment & Plan Anesthesia* Anesthesia Assessment Anesthesia Assessment: Discussed sedation and/or anesthesia options, risks, benefits, and alternatives with patient/parents/legal guardian/POA. Questions invited. The patient/parents/legal guardian/POA seems to understand and agrees to proceed with anesthesia plan. Reviewed the physical assessment, medical history, allergy history and patient home medications list prior to surgery/procedure/anesthetic and documented any changes. Performed airway and anesthesia risk assessments. Anesthesia Type Anesthesia Type: MAC History Source History Obtained from:: Patient and Chart Anesthesia Focused Assessment* Temperature: 97.5 F Pulse Rate: 110 Blood Pressure: 125/86 Respiratory Rate: 16 Pulse Ox: 97 Oxygen Delivery Method: Room Air Airway Assessment Mouth opens: >3 cm Mallampati Score: III Teeth Condition: Intact Neck Range of motion (ROM): Limited ROM (Somewhat Decreased) Labs Anesthesia Preop lab: CBC WBC, (4.4-11.0) 5.2 K/mm3 03/21/25, 09:14 RBC, (4.6-6.2) 3.90 M/mm3 L 03/21/25, 09:14 Hgb, (13.0-16.5) 12.8 g/dL L 03/21/25, 09:14 Hct, (40-54) 38.2 % L 03/21/25, 09:14 Plt Count, (150-450) 123 K/mm3 L 03/21/25, 09:14 CHEMISTRY Potassium, (3.3-5.1) 4.1 mmol/L 03/21/25, 09:14 Sodium, (133-145) 139 mmol/L 03/21/25, 09:14 Magnesium, (1.5-2.2) 2.0 mg/dL 02/20/25, 09:01 Phosphorus, (2.7-4.5) 3.4 mg/dL 01/30/25, 08:12 BUN, (4-19) 12 mg/dL 03/21/25, 09:14 Creatinine, (0.70-1.20) 0.66 mg/dL L 03/21/25, 09:14 Glucose, (70-99) 106 mg/dL H 03/21/25, 09:14 POC Glucose, (74-106) 112 mg/dL H 09/26/23, 06:03 COAG PT, (11.7-14.9) 14.5 SECONDS 12/01/24, 08:10 Pre-Assessment Diagnosis/Proposed Procedure Planned Operative Procedure(s): EGD Anesthesia History 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 When Was Last Pacemaker Check QUESTION #4 FULL TEXT: You/Your Family Experience fever (hyperthermia) with Anesthesia Last Oral Intake Last Oral intake: Last Oral Intake NPO since 17:00 04/22/25 07:46 Meds taken in AM with sips of Yes 04/22/25 07:46 water? 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 Female No 04/18/25 10:55 HX of Motion Sickness No 04/18/25 10:55 HX of N/V After Surgery No 04/18/25 10:55 Non-Smoker Yes 04/18/25 10:55 Duration of Surgery greater No 04/18/25 10:55 than 60 minutes Number of Risk Factors 1 04/18/25 10:55 PONV Score Low Risk 04/18/25 10:55 Height & Weight Height & Weight: Anesthesia: Height & Weight Height 5 ft 11 in 04/22/25 07:46 Weight: 82 kg 04/22/25 07:46 Body Mass Index (BMI) 25.2 04/22/25 07:46 Respiratory Assessment Respiratory Assessment - raw scales operator: Respiratory Tract Infection Hx - raw scales operator Hx Respiratory Tract Infection No 04/22/25 07:31 STOP Sleep Apnea STOP Sleep Apnea - raw scales operator: STOP Sleep Apnea - raw scales operator Hx Hypertension No 04/22/25 07:31 Hx Sleep Apnea No 04/22/25 07:31 CPAP No 04/22/25 07:31 BIPAP No 04/22/25 07:31 Do you snore loudly (louder No 04/22/25 07:31 than talking or can be heard Do you often feel tired/ Yes 04/22/25 07:31 fatigued/ sleepy during daytime? Has anyone observed you stop No 04/22/25 07:31 breathing during sleep? STOP Results Negative 04/22/25 07:31 QUESTION #5 FULL TEXT : Do you snore loudly (louder than talking or can be heard through closed doors)? 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 Specify any problems Hx of Preganancy in last 3 N/A 04/18/25 10:55 Months Nurse Filling Out Transfusion DSCHRIBER 04/18/25 10:55 & Questions: Date: 04/18/25 04/18/25 10:55 Time: 10:57 04/18/25 10:55 Patient unable to answer at this time (ie. confused, unrespo /Reproduction History /Reproductive History - raw scales operator: /Reproductive Hx- raw scales operator Hx Now No 04/22/25 07:31 Gestational Age (in weeks): EDC: Hx Hx Para Hx Section SAB No 04/18/25 10:55 Does the father of the baby or his family experience fever w Father of the baby Malignant Hypertension history comment Active Medications Active Medications: Current Medications Generic Name Dose Route Start Last Admin Trade Name Freq PRN Reason Stop Dose Admin Lactated Ringer's 1,000 mls @ 15 mls/hr 04/22/25 07:30 04/22/25 07:54 IV 15 mls/hr .Q48H NANNETTE Administration PFSH Medical History Cancer Encounter for chemotherapy management Encounter for education Tricuspid valve regurgitation Mitral valve regurgitation Autism Cancer History of Mohs micrographic surgery for skin cancer (11/26/24) Chronic constipation Wears hearing aid Wears glasses Anxiety Prostate disease Back pain OCD (obsessive compulsive disorder) Non-smoker History of stress test Intellectual disability Obsessive compulsive disorder Hearing problem History of emotional problems Arthritis Home Medications Medication Instructions Recorded Last Taken Type sertraline 100 mg tablet 200 mg PO QHS 11/29/2401/01 08:00 History lidocaine-prilocaine 2.5 %-2.5 % 1 applic topical ONCE PRN port 01/08/25 Unknown Rx topical cream access 30 days #30 grams ondansetron 8 mg disintegrating 8 mg PO Q8H PRN nausea and 01/08/25 Unknown Rx tablet vomiting #30 tabs pantoprazole 40 mg tablet,delayed 40 mg PO BID 5 04/22/25 05:30 History release MAGIC MOUTH WASH (BMX) 180 mL 15 ml PO .qid PRN MOUTH SORE 04/18/25 Unknown History suspension amitriptyline 50 mg tablet 50 mg PO QHS 04/18/25 Unkno wn History bupropion HCl 300 mg 24 hr tablet, 300 mg PO QHS 04/18 Unknown History extended release lorazepam 1 mg tablet 1 mg PO BID anxiety 04/18/25 Unknown History oxycodone 5 mg/5 mL oral solution 10 mg PO Q6H PRN lynda n 04/18/25 Unknown History Allergy/AdvReac Type Severity Reaction Status Date / Time No Known Allergies Allergy Verified 04/22/25 07:37 Family History Other Arthritis Bowel disease Colon cancer Diabetes Heart disease High cholesterol Hypertension Osteoporosis Surgical History History of vascular access device History of esophagogastroduodenoscopy (EGD) History of ankle surgery History of tonsillectomy History of colonoscopy History of left knee replacement History of total left hip replacement History of total right hip replacement History of nasal surgery Social History Smoking Status: Never smoker alcohol intake: never substance use type: does not use what type of physical activity do you participate in: walking Review of Systems (Anesthesia) ROS Narrative System reviewed and no additional complaints, except as documented.
--- NOTE | 2025-04-22 08:45 | EGD_PTH ---
PATIENT: CYNDEE HAWKINS LOC: EN U#:[id number] AGE/SX: 65/M ROOM: RE04/22/[address]: Dr. Olga Jacobo MD : 1960 BED: DIS: 04/22/2025 SPEC #: [id number] RECD: 04/22/25 11:58 STATUS: ELBERT REClair #: [id number] JOSE ROBERTO: 04/22/25 08:[address]: Olga Jacobo DEPT: SURGICAL PATHOLOGY RECD BY: Brandan Boykin ENTERED: 04/22/25 14:20 SP TYPE: EGD BIOPSY OT DR: Dr. Gerard Graves, Tissues: A - Gastric mucous membrane Procedures: Immunohistochemical Stains Surgery Specimen Level IV HEADER OPERATION: EGD with biopsy PRE-OP DIAGNOSIS: Esophageal adenocarcinoma TISSUE SUBMITTED: A- Antrum biopsy MICROSCOPIC DIAGNOSIS A. Stomach, antrum, biopsy: * Antral/oxyntic mucosa with mild chronic focal active inflammation * No morphologic evidence of Helicobacter pylori organisms on H&E or immunostained sections MICROSCOPIC DESCRIPTION Slides are reviewed. All matched controls reacted appropriately. These tests were developed and their performance characteristics determined by [facility]. They may not have been cleared or approved by the U.S. Food and Drug Administration. The FDA has determined that such clearance or approval is not necessary. The above immunohistochemical markers are viewed by the Pathologist. GROSS DESCRIPTION A. Received in fixative is one container labeled with the patient's name and designated "Antrum biopsy." The specimen consists of one irregular fragment of ferro tissue that measures 0.7 cm. The specimen is totally submitted in one cassette. ND 04/22/2025 CPT:65777,83174
--- NOTE | 2025-04-22 09:41 | PCM.POST.ANE ---
Anesthesia: Postop Eval I Current Vital Signs Temperature: 98.6 F Pulse Rate: 80 Blood Pressure: 122/86 Respiratory Rate: 16 Pulse Ox: 96 Oxygen Delivery Method: Room Air Assessment Airway patent: Yes Spontaneous unlabored respirations: Yes Mental status: Awake and Calm nausea: No Vomiting: No Anesthesia Complication: No Fluid Hydration Crystalloid volume administer (ml): 400 Total IV fluid infused: 400 Progress Note Anesthesia document: Postop Eval 1 completed: Yes
--- NOTE | 2025-04-22 10:08 | OP.PROVAT_ITS ---
04/22/2025 Gerard Graves Do Re : Upper GI endoscopy procedure for Francisco Mosher Dear [place] This procedure was performed on Tuesday, April 22, 2025. My impressions and recommendations are as follows: Impressions : - Scar in the lower third of the esophagus. - Gastritis. Biopsied. - Normal examined duodenum. - Intact gastrostomy with a patent G-tube present characterized by healthy appearing mucosa. Recommendations : - Await pathology results. - Discharge patient to home. - Resume previous diet. - Continue present medications. My findings are described in the full procedure note, which is enclosed. If I can be of further assistance, please feel free to contact me at Doctor phone number(s): , Work: . Sincerely, MD Olga Morales MD 04/22/2025 10:07:48 AM This report has been signed electronically.
--- NOTE | 2025-04-22 10:08 | OP.EGD_ITS ---
Patient Name: Francisco Mosher Procedure Date: 04/22/2025 8:32 AM Date of : 1960 Age: 65 Procedure: Upper GI endoscopy Indications: Follow-up of malignant esophageal adenocarcinoma Providers: Olga Jacobo MD Referring MD: Gerard Graves Do Medicines: Monitored Anesthesia Care Patient Profile: This is a 65 year old male. Complications: No immediate complications. Procedure: Pre-Anesthesia Assessment: - Prior to the procedure, a History and Physical was performed, and patient medications and allergies were reviewed. The patient's tolerance of previous anesthesia was also reviewed. The risks and benefits of the procedure and the sedation options and risks were discussed with the patient. All questions were answered, and informed consent was obtained. Prior Anticoagulants: The patient has taken no anticoagulant or antiplatelet agents. ASA Grade Assessment: Per anesthesia. After reviewing the risks and benefits, the patient was deemed in satisfactory condition to undergo the procedure. After obtaining informed consent, the endoscope was passed under direct vision. Throughout the procedure, the patient's blood pressure, pulse, and oxygen saturations were monitored continuously. The Endoscope was introduced through the mouth, and advanced to the second part of duodenum. The upper GI endoscopy was accomplished without difficulty. The patient tolerated the procedure well. Scope In: 9:25:38 AM Scope Out: 9:31:49 AM Total Procedure Duration Time 0 hours 6 minutes 11 seconds Findings: A scar seen at previous esophageal mass was found in the lower third of the esophagus, 36 cm from the incisors. Diffuse moderate inflammation characterized by erythema was found in the gastric antrum. Biopsies were taken with a cold forceps for histology. Biopsies were taken with a cold forceps for Helicobacter pylori cultures. The cardia and gastric fundus were normal on retroflexion. The examined duodenum was normal. There was evidence of an intact gastrostomy with a patent G-tube present in the gastric body. This was characterized by healthy appearing mucosa. Impression: - Scar in the lower third of the esophagus. - Gastritis. Biopsied. - Normal examined duodenum. - Intact gastrostomy with a patent G-tube present characterized by healthy appearing mucosa. Recommendation: - Await pathology results. - Discharge patient to home. - Resume previous diet. - Continue present medications. Procedure Code(s): --- Professional --- 15257, Esophagogastroduodenoscopy, flexible, transoral; with biopsy, single or multiple Diagnosis Code(s): --- Professional --- K22.89, Other specified disease of esophagus K29.70, Gastritis, unspecified, without bleeding Z93.1, Gastrostomy status C15.9, Malignant neoplasm of esophagus, unspecified CPT copyright 2021 [employer]. All rights reserved. The codes documented in this report are preliminary and upon physical security engineer review may be revised to meet current compliance requirements. MD Olga Morales MD 04/22/2025 10:07:48 AM This report has been signed electronically. Number of Addenda: 0 Note Initiated On: 04/22/2025 8:32 AM
--- NOTE | 2025-04-22 10:38 | NS ---
04/22/25: SARAN recieved voicemail from pt's sister Mirtha 2x since 04/18/25 regarding enteral nutrition formula and supplies. Mirtha reports that patient continues to need enteral nutrition to meet 100% of estimated nutrition needs because of Francisco's dysphagia. Minimal PO intakes lately. Mirtha reports that [facility] has told her 2x that they would expedite Francisco's order for enteral nutrition and they haven't received anything. Reports that [facility] needs MD note to state that the patient has dysphagia and is reliant on enteral nutrition. SARAN has not recieved any contact from [facility] requesting information other than what was sent to them on 04/08/25 when updated MD and RDN notes were requested. Mirtha asked about changing compaines. Discussed that this RDN will reach out to [facility] to transfer services to. Mirtha appreciative of information. MARITZAN provided samples of Ooploo Peptide 1.5 formula. Mirtha did buy some Ooploo formula online. Also asking about gravity bags since they have been reusing the same ones for several days. MARITZAN emailed Mirtha .[employer] To links to gravity bags to purchase online. Juani Larios RDN, LD
--- NOTE | 2025-04-22 13:58 | PCM.POSTANE2 ---
Anesthesia Postop Eval I Sum Postop Eval Completion status Anesthesia document: Postop Eval 1 completed: Yes Anesthesia Postop Eval I Summary Anesthesia Postop Eval I Summary: Anesthesia Postop Eval I: Assessment Summary Airway patent Yes 04/22/25 09:42 [email or web address] Spontaneous unlabored Yes 04/22/25 09:42 [email or web address] respirations Mental status Awake,Calm 04/22/25 09:42 [email or web address] nausea No 04/22/25 09:42 [email or web address] Vomiting No 04/22/25 09:42 [email or web address] Anesthesia Postop Eval I: Fluid Summary Crystalloid volume administer 400 04/22/25 09:42 [email or web address] (ml) Colloids volume administered ( ml) Blood Product volume administered (ml) Total IV fluid infused 400 04/22/25 09:42 [email or web address] Anesthesia Postop Eval I: Summary Notes Anesthesia Complication No 04/22/25 09:42 [email or web address] Anesthesia Complication Comment: Post-operative progress note Anesthesia: Postop Eval II Evaluation Mental status: Awake Pain Level: 0 nausea: No Vomiting: No Complications Anesthesia Complication: No
== END 2025-04-22 10:25 | disposition home or self-care (01) ==
LOC: EN 07:21 → AC 07:22
PROVIDERS: PCP Student in an Organized Health Care Education/Training Program; Referring Provider Student in an Organized Health Care Education/Training Program; Visit Provider Surgery
DX: K29.50 Unspecified chronic gastritis without bleeding (principal); Z93.1 Gastrostomy status; Z79.899 Other long term (current) drug therapy; Z85.01 Personal history of malignant neoplasm of esophagus; K22.2 Esophageal obstruction
CPT/HCPCS: 43239; 88305; 88342; A4216; J2405

== ENCOUNTER 2025-04-29 11:47 | Outpatient (RCR) | payer MEDICARE, OTHER, SELFPAY | END 2025-05-05 23:59 | LOC: NS 11:47 | PROVIDERS: PCP Student in an Organized Health Care Education/Training Program; Visit Provider Student in an Organized Health Care Education/Training Program | DX: Z71.3 Dietary counseling and surveillance (principal); C15.9 Malignant neoplasm of esophagus, unspecified; R63.4 Abnormal weight loss | CPT/HCPCS: 97803 ==

== ENCOUNTER 2025-05-27 12:07 | Outpatient (RCR) | payer MEDICARE, OTHER, SELFPAY | END 2025-06-05 23:59 | LOC: NS 12:07 | PROVIDERS: PCP Student in an Organized Health Care Education/Training Program; Visit Provider Student in an Organized Health Care Education/Training Program | DX: Z71.3 Dietary counseling and surveillance (principal); C15.9 Malignant neoplasm of esophagus, unspecified; R63.4 Abnormal weight loss | CPT/HCPCS: 97803 ==